=== PATIENT | male | born 1955 | race Caucasian/White ===

== ENCOUNTER 2018-04-26 17:40 | Inpatient (IN) | payer BC ==
--- OUTSIDE RECORDS SUMMARY | 2018-04-26 17:43 | XMS REPORT | Clinical Summary ---
:1955 Author Organization [facility] Address [address] [place] [address] Care Team Providers Name Role Phone Danial Wilkins MD Primary Care Provider Allergies No Known Allergies Current Medications Prescription Sig. Disp. Refills Start End Date Status Date aspirin (ECOTRIN) 81 Take 81 mg by Active MG enteric coated mouth daily. tablet multivitamin with Take 1 tablet by Active minerals tablet mouth daily. tiotropium-olodatero Take 2 Active l (STIOLTO RESPIMAT) inhalations by 2.5-2.5 mouth daily. mcg/actuation inhalation solution adalimumab (HUMIRA) Inject 40 mg Active 40 mg/0.8 mL under the skin injection once. HYDROcodone-acetamin Take 1 tablet by Active ophen (NORCO) 5-325 mouth every 6 mg per tablet (six) hours as needed for moderate pain. cyclobenzaprine Take 5 mg by Active (FLEXERIL) 5 mg mouth 3 (three) tablet times a day as needed for muscle spasms. simvastatin (ZOCOR) Take 20 mg by Active 20 MG tablet mouth nightly. folic acid (FOLVITE) Take 1 mg by Active 1 MG tablet mouth daily. 3 DAILY methotrexate 2.5 MG Take 2.5 mg by Active tablet mouth once a week. 7 PILLS WEEKLY albuterol (PROAIR Inhale 2 puffs Active HFA,PROVENTIL every 6 (six) HFA,VENTOLIN HFA) 90 hours as needed mcg/actuation for wheezing. inhaler tadalafil (CIALIS) Take 20 mg by Active 20 mg tablet mouth daily as needed. losartan (COZAAR) 50 TK 1 T PO QD 3 Active MG tablet 7 CHANTIX 1 mg tablet TK 1 T PO D 5 Active 7 CHANTIX STARTING TK 1 T PO D OR 3 Active MONTH BOX 0.5 mg DIRECTED 7 (11)- 1 mg (42) tablet amLODIPine (NORVASC) TK 1 T PO QD 1 Active 10 mg tablet 7 ondansetron ODT DISSOLVE 1 T ON 3 Active (ZOFRAN-ODT) 4 MG TONGUE Q 4 TO 6 7 disintegrating H PRF NV tablet dexamethasone TK 1 T PO BID 2 Active (DECADRON) 4 MG FOR 3 DAYS. 7 tablet BEGIN THE DAY BEFORE EACH CHEMO TREATMENT metoprolol succinate 100 mg. 2 Active XL (TOPROL-XL) 100 7 mg 24 hr tablet omeprazole 20 mg. 3 Active (PriLOSEC) 20 MG 7 capsule gabapentin Take 1 capsule 60 capsule 3 09/04/20 Active (NEURONTIN) 300 mg (300 mg total) 7 18 capsuleIndications: by mouth 2 (two) Neuropathic pain times a day. metoprolol succinate Take 200 mg by 07/30/20 Discontinued XL (TOPROL-XL) 200 mouth daily. 17 mg 24 hr tablet cholecalciferol, Take 1,000 Units 07/30/20 Discontinued vitamin D3, (VITAMIN by mouth daily. 17 D3) 1,000 unit tablet acetaminophen Take 2 tablets 180 tablet 0 08/29/20 (TYLENOL) 500 MG (1,000 mg total) 7 17 tablet by mouth 3 (three) times a day for 30 days. traMADol (ULTRAM) 50 Take 1 tablet 80 tablet 0 08/19/20 mg tablet (50 mg total) by 7 17 mouth 4 (four) times a day for 20 days. amIODarone Take 1 tablet 60 tablet 0 08/29/20 (PACERONE) 200 MG (200 mg total) 7 17 tablet by mouth 2 (two) times a day for 30 days. metoprolol tartrate Take 1 tablet 60 tablet 0 08/29/20 (LOPRESSOR) 100 mg (100 mg total) 7 17 tablet by mouth 2 (two) times a day for 30 days. apixaban (ELIQUIS) Take 2 tablets 360 tablet 0 10/28/20 2.5 mg tablet (5 mg total) by 7 17 mouth 2 (two) times a day for 90 days. Active Problems Patient Care Coordination Note Referring physician is Valery Bucio [facility] [place] [address] P: [phone] F: [phone] Problem Noted Date Malignant neoplasm of upper lobe bronchus 07/15/2017 Hypertension 02/03/2017 COPD (chronic obstructive pulmonary disease) 02/03/2017 Rheumatoid arthritis 02/03/2017 Smoking 02/03/2017 Encounters Date Type Specialty Care Team Description 09/04/2017 Office Visit Cardiothoracic Blu Lay Surgery follow-up examination (Primary Dx); Surgery MD Stephenie Neuropathic pain 08/27/2017 Telephone Cardiothoracic La Nena Rm NP 08/01/2017 Telephone Cardiothoracic Michele, La Nena Ruiz [place] 07/18/2017 Anesthesia Event Cardiology WeberEmma 07/18/2017 Procedure Pass Procedural Cardiology 07/18/2017 Surgery Procedural Cardiology Matthias Patrick MD Ep cardioversion [90637 (CPT)] 07/15/2017 - Hospital Encounter Cardiology Blu Lay Malignant neoplasm 07/30/2017 MD Stephenie of upper lobe bronchus, left 07/15/2017 Procedure Pass Cardiothoracic Surgery 07/15/2017 Surgery Cardiothoracic Blu Lay ROBOTIC ASSISTED Surgery MD Stephenie THORASCOPIC LEFT UPPER LOBE LOBECTOMY, THORASCOPIC RIGHT RESECTION MEDIASTINAL MASS, MEDIASTINAL LYMPH NODE DISECTION 07/14/2017 Anesthesia Event Cardiothoracic Javier Berry Surgery MD 07/10/2017 Telephone Cardiothoracic La Nena Rm NP 07/09/2017 Hospital Encounter Radiology Zuly Rm NP 07/09/2017 Lab Lab [facility] Malignant neoplasm of upper lobe of left lung; MD Stephenie Pre-op testing 07/09/2017 Telephone Cardiothoracic La Nena Rm NP 07/03/2017 Telephone Cardiothoracic La Nena Rm NP 06/09/2017 Telephone Cardiothoracic Demetriasensaturnino, Cough (Primary Dx) Surgery Tata Ashley NP 05/29/2017 Hospital Encounter Blu Dugan MD 05/29/2017 Hospital Encounter Blu Dugan MD 05/29/2017 Office Visit Cardiothoracic Blu Lay Malignant neoplasm of upper lobe of left lung (Primary Dx); Surgery MD Stephenie Pre-op testing 05/29/2017 Ancillary Orders Blu Dugan MD 05/29/2017 Ancillary Orders Blu Dugan MD 05/29/2017 Orders Only Cardiothoracic Provider, La Nena Obando MD after 04/25/2017 Family History Medical History Relation Name Comments Skin cancer Brother COPD Father Emphysema Father Heart failure Father Lung cancer Father Skin cancer Father No Known Problems Mother No Known Problems Sister Relation Name Status Comments Brother Father Mother Sister Social History Tobacco Use Types Packs/Day Years Used Date Former Smoker Cigarettes 1 51 Quit: 01/01/2017 Smokeless Tobacco: Never Used Tobacco Cessation: Counseling Given: Yes Alcohol Use Drinks/Week oz/Week Comments Yes 3 Cans of beer 1.8 Sex Assigned at Date Recorded Not on file Last Filed Vital Signs Vital Sign Reading Time Taken Blood Pressure 134/66 09/04/2017 10:42 AM CDT Pulse 61 09/04/2017 10:42 AM CDT Temperature 35.8 C (96.5 F) 09/04/2017 10:42 AM CDT Respiratory Rate 20 09/04/2017 10:42 AM CDT Oxygen Saturation 94% 09/04/2017 10:42 AM CDT Inhaled Oxygen Concentration - - Weight 61.3 kg (135 lb 3.2 oz) 09/04/2017 10:42 AM CDT Height 162.6 cm (5' 4") 09/04/2017 10:42 AM CDT Body Mass Index 23.21 09/04/2017 10:42 AM CDT Plan of Treatment Health Maintenance Due Date Last Done Comments COLON CANCER SCREENING 2003 SHINGRIX VACCINE (#1) 2003 ZOSTER VACCINE 2013 INFLUENZA VACCINE 06/03/2018 Implants Implanted Type Area Ditch Inspector Device Expiration Model / Identifier Date Serial / Lot Hemostat Absrbl Oxidized Knttd 3x4in Cllos Surgicel Nu-Knit - [id number] Surgical N/A: N/A [facility] 03/02/2022 1943 / Implanted: 07/15/2017 (Quantity not on file) Implants; / Expanders; [id number] Extenders; Surgical Wires Hemostat Absrbl Oxidized Knttd 3x4in Cllos Surgicel Nu-Knit - [id number] Surgical N/A: N/A [facility] 03/02/2022 194 / Implanted: 07/15/2017 (Quantity not on file) Implants; / Expanders; [id number] Extenders; Surgical Wires Hemostat Absrbl Oxidized Knttd 3x4in Cllos Surgicel Nu-Knit - [id number] Surgical N/A: N/A [facility] 03/02/2022 194 / Implanted: 07/15/2017 (Quantity not on file) Implants; / Expanders; [id number] Extenders; Surgical Wires Hemostat Absrbl Oxidized Knttd 3x4in Cllos Surgicel Nu-Knit - [id number] Surgical N/A: N/A [facility] 03/02/2022 194 / Implanted: 07/15/2017 (Quantity not on file) Implants; / Expanders; [id number] Extenders; Surgical Wires Hemostat Absrbl Oxidized Knttd 3x4in Cllos Surgicel Nu-Knit - [id number] Surgical N/A: N/A [facility] 03/02/2022 194 / Implanted: 07/15/2017 (Quantity not on file) Implants; / Expanders; [id number] Extenders; Surgical Wires Kit Selnt Plrl Air Leak 4ml Strl Progel - [id number] Surgical N/A: N/A [employer] 07/04/2018 [id number] / Implanted: Qty: 1 on 07/15/2017 by Blu Lay MD Implants; / Expanders; Extenders; Surgical Wires Matrix Hmstc Floseal 10ml W/ Humn F2 - [id number] Surgical N/A: N/A [id number] / Implanted: 07/15/2017 (Quantity not on file) Implants; BIOSCIENCE / Expanders; Extenders; Surgical Wires Kit Selnt Plrl Air Leak 4ml Strl Progel - [id number] Surgical N/A: N/A [employer] [id number] / Implanted: 07/15/2017 (Quantity not on file) Implants; / Expanders; Extenders; Surgical Wires Procedures Procedure Name Priority Date/Time Associated Comments Diagnosis XR CHEST 1 VW PORTABLE Routine 07/30/2017 1:50 Results for this PM CDT procedure are in the results section. HC COMPLETE BLD COUNT Routine 07/30/2017 5:47 Results for this W/AUTO DIFF AM CDT procedure are in the results section. XR CHEST 1 VW PORTABLE Routine 07/30/2017 5:34 Results for this AM CDT procedure are in the results section. XR CHEST 1 VW PORTABLE STAT 07/29/2017 7:30 Results for this AM CDT procedure are in the results section. HC COMPLETE BLD COUNT Routine 07/29/2017 5:15 Results for this W/AUTO DIFF AM CDT procedure are in the results section. ESTIMATED GFR Routine 07/29/2017 4:00 Results for this AM CDT procedure are in the results section. PHOSPHORUS LEVEL Routine 07/29/2017 4:00 Results for this AM CDT procedure are in the results section. MAGNESIUM LEVEL Routine 07/29/2017 4:00 Results for this AM CDT procedure are in the results section. BASIC METABOLIC PANEL Routine 07/29/2017 4:00 Results for this AM CDT procedure are in the results section. XR CHEST 1 VW PORTABLE Routine 07/28/2017 12:18 Results for this PM CDT procedure are in the results section. XR CHEST 1 VW PORTABLE Routine 07/28/2017 6:25 Results for this AM CDT procedure are in the results section. CBC WITH PLATELET AND Routine 07/28/2017 4:10 Results for this DIFFERENTIAL AM CDT procedure are in the results section. ESTIMATED GFR Routine 07/28/2017 4:00 Results for this AM CDT procedure are in the results section. PHOSPHORUS LEVEL Routine 07/28/2017 4:00 Results for this AM CDT procedure are in the results section. MAGNESIUM LEVEL Routine 07/28/2017 4:00 Results for this AM CDT procedure are in the results section. BASIC METABOLIC PANEL Routine 07/28/2017 4:00 Results for this AM CDT procedure are in the results section. POC GLUCOSE Routine 07/27/2017 9:10 Results for this PM CDT procedure are in the results section. POC GLUCOSE Routine 07/27/2017 7:23 Results for this AM CDT procedure are in the results section. XR CHEST 1 VW PORTABLE Routine 07/27/2017 6:41 Results for this AM CDT procedure are in the results section. CBC WITH PLATELET AND Routine 07/27/2017 5:35 Results for this DIFFERENTIAL AM CDT procedure are in the results section. ESTIMATED GFR Routine 07/27/2017 4:00 Results for this AM CDT procedure are in the results section. PHOSPHORUS LEVEL Routine 07/27/2017 4:00 Results for this AM CDT procedure are in the results section. MAGNESIUM LEVEL Routine 07/27/2017 4:00 Results for this AM CDT procedure are in the results section. BASIC METABOLIC PANEL Routine 07/27/2017 4:00 Results for this AM CDT procedure are in the results section. POC GLUCOSE Routine 07/26/2017 8:59 Results for this PM CDT procedure are in the results section. POC GLUCOSE Routine 07/26/2017 5:52 Results for this PM CDT procedure are in the results section. POC GLUCOSE Routine 07/26/2017 11:43 Results for this AM CDT procedure are in the results section. POC GLUCOSE Routine 07/26/2017 7:34 Results for this AM CDT procedure are in the results section. XR CHEST 1 VW PORTABLE STAT 07/26/2017 7:26 Results for this AM CDT procedure are in the results section. HC COMPLETE BLD COUNT Routine 07/26/2017 5:30 Results for this W/AUTO DIFF AM CDT procedure are in the results section. ESTIMATED GFR Routine 07/26/2017 4:00 Results for this AM CDT procedure are in the results section. PHOSPHORUS LEVEL Routine 07/26/2017 4:00 Results for this AM CDT procedure are in the results section. MAGNESIUM LEVEL Routine 07/26/2017 4:00 Results for this AM CDT procedure are in the results section. BASIC METABOLIC PANEL Routine 07/26/2017 4:00 Results for this AM CDT procedure are in the results section. XR CHEST 1 VW PORTABLE STAT 07/25/2017 11:38 Results for this PM CDT procedure are in the results section. POC GLUCOSE Routine 07/25/2017 9:25 Results for this PM CDT procedure are in the results section. POC GLUCOSE Routine 07/25/2017 6:28 Results for this PM CDT procedure are in the results section. HC CATH DRAINAGE STAT 07/25/2017 5:07 Results for this PM CDT procedure are in the results section. POC GLUCOSE Routine 07/25/2017 11:58 Results for this AM CDT procedure are in the results section. MAGNESIUM LEVEL Routine 07/25/2017 7:37 Results for this AM CDT procedure are in the results section. ESTIMATED GFR Routine 07/25/2017 7:37 Results for this AM CDT procedure are in the results section. PHOSPHORUS LEVEL Routine 07/25/2017 7:37 Results for this AM CDT procedure are in the results section. BASIC METABOLIC PANEL Routine 07/25/2017 7:37 Results for this AM CDT procedure are in the results section. POC GLUCOSE Routine 07/25/2017 7:15 Results for this AM CDT procedure are in the results section. HC COMPLETE BLD COUNT Routine 07/25/2017 7:00 Results for this W/AUTO DIFF AM CDT procedure are in the results section. XR CHEST 1 VW PORTABLE Routine 07/25/2017 6:30 Results for this AM CDT procedure are in the results section. XR CHEST 1 VW PORTABLE Routine 07/24/2017 9:25 Results for this PM CDT procedure are in the results section. POC GLUCOSE Routine 07/24/2017 8:59 Results for this PM CDT procedure are in the results section. POC GLUCOSE Routine 07/24/2017 5:29 Results for this PM CDT procedure are in the results section. POC GLUCOSE Routine 07/24/2017 11:35 Results for this AM CDT procedure are in the results section. XR CHEST 1 VW PORTABLE STAT 07/24/2017 7:35 Results for this AM CDT procedure are in the results section. POC GLUCOSE Routine 07/24/2017 7:13 Results for this AM CDT procedure are in the results section. ESTIMATED GFR Routine 07/24/2017 5:45 Results for this AM CDT procedure are in the results section. PHOSPHORUS LEVEL Routine 07/24/2017 5:45 Results for this AM CDT procedure are in the results section. MAGNESIUM LEVEL Routine 07/24/2017 5:45 Results for this AM CDT procedure are in the results section. HC COMPLETE BLD COUNT Routine 07/24/2017 5:45 Results for this W/AUTO DIFF AM CDT procedure are in the results section. BASIC METABOLIC PANEL Routine 07/24/2017 5:45 Results for this AM CDT procedure are in the results section. POC GLUCOSE Routine 07/23/2017 9:13 Results for this PM CDT procedure are in the results section. POC GLUCOSE Routine 07/23/2017 4:53 Results for this PM CDT procedure are in the results section. XR CHEST 1 VW STAT 07/23/2017 3:15 Results for this PM CDT procedure are in the results section. XR CHEST 1 VW STAT 07/23/2017 2:13 Results for this PM CDT procedure are in the results section. CT INSERT PLEURA CATH Routine 07/23/2017 1:45 Results for this PM CDT procedure are in the results section. POC GLUCOSE Routine 07/23/2017 11:32 Results for this AM CDT procedure are in the results section. POC GLUCOSE Routine 07/23/2017 6:53 Results for this AM CDT procedure are in the results section. XR CHEST 1 VW PORTABLE Routine 07/23/2017 6:30 Results for this AM CDT procedure are in the results section. ESTIMATED GFR Routine 07/23/2017 5:20 Results for this AM CDT procedure are in the results section. PROTHROMBIN TIME WITH Routine 07/23/2017 5:20 Results for this INR AM CDT procedure are in the results section. PARTIAL THROMBOPLASTIN Routine 07/23/2017 5:20 Results for this TIME (PTT) AM CDT procedure are in the results section. PHOSPHORUS LEVEL Routine 07/23/2017 5:20 Results for this AM CDT procedure are in the results section. MAGNESIUM LEVEL Routine 07/23/2017 5:20 Results for this AM CDT procedure are in the results section. HC COMPLETE BLD COUNT Routine 07/23/2017 5:20 Results for this W/AUTO DIFF AM CDT procedure are in the results section. BASIC METABOLIC PANEL Routine 07/23/2017 5:20 Results for this AM CDT procedure are in the results section. POC GLUCOSE Routine 07/22/2017 8:54 Results for this PM CDT procedure are in the results section. POC GLUCOSE Routine 07/22/2017 5:36 Results for this PM CDT procedure are in the results section. XR CHEST 1 VW PORTABLE STAT 07/22/2017 5:35 Results for this PM CDT procedure are in the results section. POC GLUCOSE Routine 07/22/2017 11:52 Results for this AM CDT procedure are in the results section. XR CHEST 1 VW PORTABLE Routine 07/22/2017 9:02 Results for this AM CDT procedure are in the results section. POC GLUCOSE Routine 07/22/2017 7:13 Results for this AM CDT procedure are in the results section. ESTIMATED GFR Routine 07/22/2017 5:30 Results for this AM CDT procedure are in the results section. BASIC METABOLIC PANEL Routine 07/22/2017 5:30 Results for this AM CDT procedure are in the results section. HC COMPLETE BLD COUNT Routine 07/22/2017 5:30 Results for this W/AUTO DIFF AM CDT procedure are in the results section. POC GLUCOSE Routine 07/21/2017 9:21 Results for this PM CDT procedure are in the results section. POC GLUCOSE Routine 07/21/2017 5:01 Results for this PM CDT procedure are in the results section. POC GLUCOSE Routine 07/21/2017 11:13 Results for this AM CDT procedure are in the results section. POC GLUCOSE Routine 07/21/2017 7:09 Results for this AM CDT procedure are in the results section. HC COMPLETE BLD COUNT Routine 07/21/2017 4:20 Results for this W/AUTO DIFF AM CDT procedure are in the results section. PHOSPHORUS LEVEL Routine 07/21/2017 4:00 Results for this AM CDT procedure are in the results section. ESTIMATED GFR Routine 07/21/2017 4:00 Results for this AM CDT procedure are in the results section. BASIC METABOLIC PANEL Routine 07/21/2017 4:00 Results for this AM CDT procedure are in the results section. POC GLUCOSE Routine 07/20/2017 9:39 Results for this PM CDT procedure are in the results section. POC GLUCOSE Routine 07/20/2017 5:37 Results for this PM CDT procedure are in the results section. POC GLUCOSE Routine 07/20/2017 12:19 Results for this PM CDT procedure are in the results section. POC GLUCOSE Routine 07/20/2017 7:58 Results for this AM CDT procedure are in the results section. PHOSPHORUS LEVEL Routine 07/20/2017 4:00 Results for this AM CDT procedure are in the results section. ESTIMATED GFR Routine 07/20/2017 4:00 Results for this AM CDT procedure are in the results section. BASIC METABOLIC PANEL Routine 07/20/2017 4:00 Results for this AM CDT procedure are in the results section. HC COMPLETE BLD COUNT Routine 07/20/2017 4:00 Results for this W/AUTO DIFF AM CDT procedure are in the results section. POC GLUCOSE Routine 07/19/2017 9:21 Results for this PM CDT procedure are in the results section. POC GLUCOSE Routine 07/19/2017 5:57 Results for this PM CDT procedure are in the results section. POC GLUCOSE Routine 07/19/2017 12:17 Results for this PM CDT procedure are in the results section. POC GLUCOSE Routine 07/19/2017 7:19 Results for this AM CDT procedure are in the results section. MAGNESIUM LEVEL Routine 07/19/2017 5:00 Results for this AM CDT procedure are in the results section. PHOSPHORUS LEVEL Routine 07/19/2017 5:00 Results for this AM CDT procedure are in the results section. HEPATIC FUNCTION PANEL Routine 07/19/2017 5:00 Results for this AM CDT procedure are in the results section. ESTIMATED GFR Routine 07/19/2017 5:00 Results for this AM CDT procedure are in the results section. BASIC METABOLIC PANEL Routine 07/19/2017 5:00 Results for this AM CDT procedure are in the results section. HC COMPLETE BLD COUNT Routine 07/19/2017 5:00 Results for this W/AUTO DIFF AM CDT procedure are in the results section. POC GLUCOSE Routine 07/18/2017 9:49 Results for this PM CDT procedure are in the results section. XR CHEST 1 VW PORTABLE Routine 07/18/2017 8:15 Results for this PM CDT procedure are in the results section. PHOSPHORUS LEVEL STAT 07/18/2017 6:43 Results for this PM CDT procedure are in the results section. MAGNESIUM LEVEL STAT 07/18/2017 6:43 Results for this PM CDT procedure are in the results section. POC GLUCOSE Routine 07/18/2017 5:36 Results for this PM CDT procedure are in the results section. ECG 12-LEAD STAT 07/18/2017 2:15 Results for this PM CDT procedure are in the results section. EP CARDIOVERSION Routine 07/18/2017 2:07 Results for this PM CDT procedure are in the results section. POC GLUCOSE Routine 07/18/2017 11:44 Results for this AM CDT procedure are in the results section. THYROID STIMULATING Routine 07/18/2017 10:53 Results for this HORMONE AM CDT procedure are in the results section. POC GLUCOSE Routine 07/18/2017 7:17 Results for this AM CDT procedure are in the results section. XR CHEST 1 VW PORTABLE STAT 07/18/2017 3:22 Results for this AM CDT procedure are in the results section. PARTIAL THROMBOPLASTIN STAT 07/18/2017 3:20 Results for this TIME (PTT) AM CDT procedure are in the results section. PROTHROMBIN TIME WITH STAT 07/18/2017 3:20 Results for this INR AM CDT procedure are in the results section. ARTERIAL BLOOD GAS STAT 07/18/2017 3:03 Results for this AM CDT procedure are in the results section. HC COMPLETE BLD COUNT STAT 07/18/2017 3:00 Results for this W/AUTO DIFF AM CDT procedure are in the results section. TROPONIN STAT 07/18/2017 2:52 Results for this AM CDT procedure are in the results section. ESTIMATED GFR STAT 07/18/2017 2:52 Results for this AM CDT procedure are in the results section. MAGNESIUM LEVEL STAT 07/18/2017 2:52 Results for this AM CDT procedure are in the results section. COMPREHENSIVE METABOLIC STAT 07/18/2017 2:52 Results for this PANEL AM CDT procedure are in the results section. POC GLUCOSE Routine 07/18/2017 1:06 Results for this AM CDT procedure are in the results section. POC GLUCOSE Routine 07/17/2017 8:55 Results for this PM CDT procedure are in the results section. POC GLUCOSE Routine 07/17/2017 5:19 Results for this PM CDT procedure are in the results section. POC GLUCOSE Routine 07/17/2017 1:26 Results for this PM CDT procedure are in the results section. XR CHEST 1 VW PORTABLE Routine 07/17/2017 1:17 Results for this PM CDT procedure are in the results section. POC GLUCOSE Routine 07/17/2017 9:08 Results for this AM CDT procedure are in the results section. XR CHEST 1 VW PORTABLE STAT 07/17/2017 6:55 Results for this AM CDT procedure are in the results section. HC COMPLETE BLD COUNT Routine 07/17/2017 4:30 Results for this W/AUTO DIFF AM CDT procedure are in the results section. ECG 12-LEAD Routine 07/17/2017 3:19 Results for this AM CDT procedure are in the results section. ESTIMATED GFR Routine 07/17/2017 12:00 Results for this AM CDT procedure are in the results section. PHOSPHORUS LEVEL Routine 07/17/2017 12:00 Results for this AM CDT procedure are in the results section. IONIZED CALCIUM Routine 07/17/2017 12:00 Results for this AM CDT procedure are in the results section. MAGNESIUM LEVEL Routine 07/17/2017 12:00 Results for this AM CDT procedure are in the results section. BASIC METABOLIC PANEL Routine 07/17/2017 12:00 Results for this AM CDT procedure are in the results section. XR CHEST 1 VW PORTABLE STAT 07/16/2017 10:02 Results for this PM CDT procedure are in the results section. HC COMPLETE BLD COUNT STAT 07/16/2017 10:00 Results for this W/AUTO DIFF PM CDT procedure are in the results section. ECG 12-LEAD Routine 07/16/2017 9:35 Results for this PM CDT procedure are in the results section. TROPONIN STAT 07/16/2017 9:30 Results for this PM CDT procedure are in the results section. ESTIMATED GFR STAT 07/16/2017 9:30 Results for this PM CDT procedure are in the results section. PHOSPHORUS LEVEL STAT 07/16/2017 9:30 Results for this PM CDT procedure are in the results section. MAGNESIUM LEVEL STAT 07/16/2017 9:30 Results for this PM CDT procedure are in the results section. BASIC METABOLIC PANEL STAT 07/16/2017 9:30 Results for this PM CDT procedure are in the results section. POC GLUCOSE Routine 07/16/2017 9:01 Results for this PM CDT procedure are in the results section. POC GLUCOSE Routine 07/16/2017 5:33 Results for this PM CDT procedure are in the results section. POC GLUCOSE Routine 07/16/2017 11:44 Results for this AM CDT procedure are in the results section. POC GLUCOSE Routine 07/16/2017 7:21 Results for this AM CDT procedure are in the results section. XR CHEST 1 VW PORTABLE Routine 07/16/2017 6:30 Results for this AM CDT procedure are in the results section. POC GLUCOSE Routine 07/16/2017 4:07 Results for this AM CDT procedure are in the results section. ESTIMATED GFR Routine 07/16/2017 2:23 Results for this AM CDT procedure are in the results section. PHOSPHORUS LEVEL Routine 07/16/2017 2:23 Results for this AM CDT procedure are in the results section. MAGNESIUM LEVEL Routine 07/16/2017 2:23 Results for this AM CDT procedure are in the results section. IONIZED CALCIUM Routine 07/16/2017 2:23 Results for this AM CDT procedure are in the results section. BASIC METABOLIC PANEL Routine 07/16/2017 2:23 Results for this AM CDT procedure are in the results section. PROTHROMBIN TIME WITH Routine 07/16/2017 2:00 Results for this INR AM CDT procedure are in the results section. PARTIAL THROMBOPLASTIN Routine 07/16/2017 2:00 Results for this TIME (PTT) AM CDT procedure are in the results section. CBC HEMOGRAM Routine 07/16/2017 2:00 Results for this AM CDT procedure are in the results section. POC GLUCOSE Routine 07/16/2017 12:22 Results for this AM CDT procedure are in the results section. ESTIMATED GFR Routine 07/15/2017 8:40 Results for this PM CDT procedure are in the results section. PROTHROMBIN TIME WITH Routine 07/15/2017 8:40 Results for this INR PM CDT procedure are in the results section. PHOSPHORUS LEVEL Routine 07/15/2017 8:40 Results for this PM CDT procedure are in the results section. PARTIAL THROMBOPLASTIN Routine 07/15/2017 8:40 Results for this TIME (PTT) PM CDT procedure are in the results section. BASIC METABOLIC PANEL Routine 07/15/2017 8:40 Results for this PM CDT procedure are in the results section. MAGNESIUM LEVEL Routine 07/15/2017 8:40 Results for this PM CDT procedure are in the results section. IONIZED CALCIUM Routine 07/15/2017 8:40 Results for this PM CDT procedure are in the results section. HC COMPLETE BLD COUNT Routine 07/15/2017 8:40 Results for this W/AUTO DIFF PM CDT procedure are in the results section. XR CHEST 1 VW PORTABLE Routine 07/15/2017 8:32 Results for this PM CDT procedure are in the results section. POC GLUCOSE Routine 07/15/2017 7:30 Results for this PM CDT procedure are in the results section. ECG PRE/POST OP Routine 07/15/2017 7:29 Results for this PM CDT procedure are in the results section. POC GLUCOSE Routine 07/15/2017 6:57 Results for this PM CDT procedure are in the results section. ARTERIAL BLOOD GAS Routine 07/15/2017 6:57 Results for this PM CDT procedure are in the results section. ARTERIAL BLOOD GAS STAT 07/15/2017 5:43 Results for this PM CDT procedure are in the results section. XR CHEST 1 VW PORTABLE STAT 07/15/2017 5:37 Results for this PM CDT procedure are in the results section. ARTERIAL BLOOD GAS STAT 07/15/2017 5:22 Results for this PM CDT procedure are in the results section. ARTERIAL BLOOD GAS, STAT 07/15/2017 4:02 Results for this CORRECTED PM CDT procedure are in the results section. SODIUM LEVEL, SYRINGE STAT 07/15/2017 4:02 Results for this PM CDT procedure are in the results section. POTASSIUM, SYRINGE STAT 07/15/2017 4:02 Results for this PM CDT procedure are in the results section. HEMOGLOBIN, SYRINGE STAT 07/15/2017 4:02 Results for this PM CDT procedure are in the results section. IONIZED CALCIUM, STAT 07/15/2017 4:02 Results for this ARTERIAL PM CDT procedure are in the results section. GLUCOSE LEVEL, SYRINGE STAT 07/15/2017 4:02 Results for this PM CDT procedure are in the results section. SURGICAL PATHOLOGY Routine 07/15/2017 3:33 Results for this REQUEST PM CDT procedure are in the results section. IONIZED CALCIUM, STAT 07/15/2017 2:48 Results for this ARTERIAL PM CDT procedure are in the results section. GLUCOSE LEVEL, SYRINGE STAT 07/15/2017 2:48 Results for this PM CDT procedure are in the results section. HEMOGLOBIN, SYRINGE STAT 07/15/2017 2:48 Results for this PM CDT procedure are in the results section. SODIUM LEVEL, SYRINGE STAT 07/15/2017 2:48 Results for this PM CDT procedure are in the results section. POTASSIUM, SYRINGE STAT 07/15/2017 2:48 Results for this PM CDT procedure are in the results section. ARTERIAL BLOOD GAS STAT 07/15/2017 2:48 Results for this PM CDT procedure are in the results section. GLUCOSE LEVEL, SYRINGE STAT 07/15/2017 1:53 Results for this PM CDT procedure are in the results section. IONIZED CALCIUM, STAT 07/15/2017 1:53 Results for this ARTERIAL PM CDT procedure are in the results section. HEMOGLOBIN, SYRINGE STAT 07/15/2017 1:53 Results for this PM CDT procedure are in the results section. POTASSIUM, SYRINGE STAT 07/15/2017 1:53 Results for this PM CDT procedure are in the results section. SODIUM LEVEL, SYRINGE STAT 07/15/2017 1:53 Results for this PM CDT procedure are in the results section. ARTERIAL BLOOD GAS STAT 07/15/2017 1:53 Results for this PM CDT procedure are in the results section. GLUCOSE LEVEL, SYRINGE STAT 07/15/2017 12:48 Results for this PM CDT procedure are in the results section. HEMOGLOBIN, SYRINGE STAT 07/15/2017 12:48 Results for this PM CDT procedure are in the results section. IONIZED CALCIUM, STAT 07/15/2017 12:48 Results for this ARTERIAL PM CDT procedure are in the results section. SODIUM LEVEL, SYRINGE STAT 07/15/2017 12:48 Results for this PM CDT procedure are in the results section. POTASSIUM, SYRINGE STAT 07/15/2017 12:48 Results for this PM CDT procedure are in the results section. ARTERIAL BLOOD GAS STAT 07/15/2017 12:48 Results for this PM CDT procedure are in the results section. GLUCOSE LEVEL, SYRINGE STAT 07/15/2017 11:49 Results for this AM CDT procedure are in the results section. HEMOGLOBIN, SYRINGE STAT 07/15/2017 11:49 Results for this AM CDT procedure are in the results section. IONIZED CALCIUM, STAT 07/15/2017 11:49 Results for this ARTERIAL AM CDT procedure are in the results section. POTASSIUM, SYRINGE STAT 07/15/2017 11:49 Results for this AM CDT procedure are in the results section. SODIUM LEVEL, SYRINGE STAT 07/15/2017 11:49 Results for this AM CDT procedure are in the results section. ARTERIAL BLOOD GAS STAT 07/15/2017 11:49 Results for this AM CDT procedure are in the results section. GLUCOSE LEVEL, SYRINGE STAT 07/15/2017 10:44 Results for this AM CDT procedure are in the results section. HEMOGLOBIN, SYRINGE STAT 07/15/2017 10:44 Results for this AM CDT procedure are in the results section. IONIZED CALCIUM, STAT 07/15/2017 10:44 Results for this ARTERIAL AM CDT procedure are in the results section. POTASSIUM, SYRINGE STAT 07/15/2017 10:44 Results for this AM CDT procedure are in the results section. SODIUM LEVEL, SYRINGE STAT 07/15/2017 10:44 Results for this AM CDT procedure are in the results section. ARTERIAL BLOOD GAS STAT 07/15/2017 10:44 Results for this AM CDT procedure are in the results section. GLUCOSE LEVEL, SYRINGE STAT 07/15/2017 9:22 Results for this AM CDT procedure are in the results section. IONIZED CALCIUM, STAT 07/15/2017 9:22 Results for this ARTERIAL AM CDT procedure are in the results section. HEMOGLOBIN, SYRINGE STAT 07/15/2017 9:22 Results for this AM CDT procedure are in the results section. POTASSIUM, SYRINGE STAT 07/15/2017 9:22 Results for this AM CDT procedure are in the results section. SODIUM LEVEL, SYRINGE STAT 07/15/2017 9:22 Results for this AM CDT procedure are in the results section. ARTERIAL BLOOD GAS STAT 07/15/2017 9:22 Results for this AM CDT procedure are in the results section. CENTRAL LINE Routine 07/15/2017 8:43 AM CDT Procedure Note - Cici Aj MD - 07/15/2017 8:42 AM CDT Central line Performed by: CICI AJ Authorized by: CICI AJ Patient Location: OR Staff: Anesthesiologist: CICI AJ Resident/TROLLEY COLLECTOR: JAVIER BERRY Performed by: Resident/TROLLEY COLLECTOR Preprocedure:patient identified, IV checked, site and side verified, risks and benefits discussed, procedure verified, surgical consent complete, patient position confirmed, monitors and equipment checked and pre-op evaluation complete MSBT: antiseptic used during central venous catheter insertion, all elements of maximal sterile barrier technique followed, hand hygiene performed prior to central venous catheter insertion, cap/gown used by other personnel during central venous catheter insertion, solutions labeled and all ports not used during insertion clamped Indications: Indications: Vascular access and central pressure monitoring Anesthesia: Anesthesia: General Procedure details: Patient position: Supine Catheter Type: Double lumen Catheter Size: 8 Fr Catheter Site: subclavian vein Catheter site laterality: Left Pre-procedure: Landmarks identified Ultrasound guidance used: No Ultrasound image saved: No Pressure transduced: Pressure transduced prior to dilator Number of attempts: 1 Successful placement: Yes Guidewire removal: Guidewire removal is confirmed Guidewire removal witnessed by: CICI AJ Post-procedure: Post-procedure: line sutured, sterile dressing applied per protocol and ports flushed with saline Post-procedure: Blood cleaned with CHG and sterile caps on all hubs Assessment: Blood return through all ports Patient tolerance: Patient tolerated the procedure well with no immediate complications ARTERIAL LINE Routine 07/15/2017 8:42 AM CDT Procedure Note - Cici Aj MD - 07/15/2017 8:41 AM CDT Arterial line Performed by: CICI AJ Authorized by: CICI AJ Patient Location: OR Staff: Anesthesiologist: CICI AJ Resident/TROLLEY COLLECTOR: JAVIER BERRY Performed by: Anesthesiologist Pre-procedure: patient identified, IV checked, site and side verified, risks and benefits discussed, procedure verified, surgical consent complete, patient position confirmed, monitors and equipment checked and pre-op evaluation complete MSBT: antiseptic used, all elements of maximal sterile barrier technique followed, hand hygiene performed, cap/gown used by other personnel and solutions labeled Indications: Indications: multiple ABGs and hemodynamic monitoring Anesthesia: Anesthesia: Local infiltration Procedure Details: Arterial Line placement: Placed pre-induction Line placement site: Radial Line placement side: Left Arterial line gauge: 20 G Number of attempts: 1 Ultrasound guidance used: No Post-procedure: Post-procedure: Sterile dressing applied Post procedure circulation, sensation, movement: Normal and unchanged Patient tolerance: Patient tolerated the procedure well with no immediate complications IA AN ELECTIVE ENDOTRACHEAL AIRWAY Routine 07/15/2017 8:41 AM CDT Procedure Note - Cici Aj MD - 07/15/2017 8:39 AM CDT Airway Performed by: CICI AJ Authorized by: CICI AJ Location: OR Urgency: Elective Anesthesiologist: CICI AJ Resident/TROLLEY COLLECTOR: JAVIER BERRY Performed by: resident/TROLLEY COLLECTOR Preoxygenated with 100% O2: Yes C-spine Precautions Maintained Throughout: Yes Mask Ventilation: Easy mask Final Airway Type: Endotracheal airway Final Endotracheal Airway: ETT - double lumen left Technique Used: Direct laryngoscopy Blade Type: Spencer Laryngoscope Blade/Videolaryngoscope Blade Size: 3 ETT Double Lumen (fr): 39 Placement Verified by: CO2 detection and direct visualization Laryngoscopic view: Grade I - full view of glottis Rapid Sequence Induction (RSI): No Modified RSI: No Number of Attempts at Approach: 1 XR CHEST 2 VW Routine 07/09/2017 1:02 PM Cough Results for this CDT procedure are in the results section. PREPARE RBC Routine 07/09/2017 12:00 PM Results for this CDT procedure are in the results section. ESTIMATED GFR Routine 07/09/2017 12:00 PM Results for this CDT procedure are in the results section. TYPE AND SCREEN Routine 07/09/2017 12:00 PM Malignant neoplasm Results for this CDT of upper lobe of procedure are in left lung the results Pre-op testing section. PARTIAL THROMBOPLASTIN Routine 07/09/2017 12:00 PM Malignant neoplasm Results for this TIME (PTT) CDT of upper lobe of procedure are in left lung the results Pre-op testing section. PROTHROMBIN TIME WITH Routine 07/09/2017 12:00 PM Malignant neoplasm Results for this INR CDT of upper lobe of procedure are in left lung the results Pre-op testing section. HC COMPLETE BLD COUNT Routine 07/09/2017 12:00 PM Malignant neoplasm Results for this W/AUTO DIFF CDT of upper lobe of procedure are in left lung the results Pre-op testing section. COMPREHENSIVE METABOLIC Routine 07/09/2017 12:00 PM Malignant neoplasm Results for this PANEL CDT of upper lobe of procedure are in left lung the results Pre-op testing section. PET CT WHOLE BODY Routine 05/22/2017 3:46 PM Results for this EXTERNAL STUDY CDT procedure are in the results section. PET CT SKULL BASE MID Routine 05/22/2017 12:00 AM THIGH EXTERNAL STUDY CDT after 04/25/2017 Results XR Chest 1 Vw Portable (07/30/2017 1:50 PM)Only the most recent of22 resultswithin the time period is included. Narrative Performed At EXAMINATION:XR CHEST 1 VW PORTABLE [facility] CLINICAL HISTORY:Chest Tube Removal COMPARISON:July 30, 2017 IMPRESSION: 1.There is been removal of the left pleural pigtail catheter. There is a minimal apical pneumothorax. Right lung is clear. [id number] Procedure Note Hm Interface, Radiology Results Incoming - 07/30/2017 2:14 PM CDT EXAMINATION: XR CHEST 1 VW PORTABLE CLINICAL HISTORY: Chest Tube Removal COMPARISON: July 30, 2017 IMPRESSION: 1. There is been removal of the left pleural pigtail catheter. There is a minimal apical pneumothorax. Right lung is clear. [id number] Performing Organization Address City/State/Zipcode Phone Number [facility] [address] [place] [address] CBC with platelet and differential (07/30/2017 5:47 AM)Only the most recent of17 resultswithin the time period is included. WBC 6.32 4.50 - 11.00 k/uL [facility] DEPARTMENT OF PATHOLOGY AND GENOMIC MEDICINE RBC 3.98 (L) 4.40 - 6.00 m/uL [facility] DEPARTMENT OF PATHOLOGY AND GENOMIC MEDICINE HGB 11.4 (L) 14.0 - 18.0 g/dL [facility] DEPARTMENT OF PATHOLOGY AND GENOMIC MEDICINE HCT 34.7 (L) 41.0 - 51.0 % [facility] DEPARTMENT OF PATHOLOGY AND GENOMIC MEDICINE MCV 87.2 82.0 - 100.0 fL [facility] DEPARTMENT OF PATHOLOGY AND GENOMIC MEDICINE MCH 28.6 27.0 - 34.0 pg [facility] DEPARTMENT OF PATHOLOGY AND GENOMIC MEDICINE MCHC 32.9 31.0 - 37.0 g/dL [facility] DEPARTMENT OF PATHOLOGY AND GENOMIC MEDICINE RDW - SD 41.8 37.0 - 55.0 fL [facility] DEPARTMENT OF PATHOLOGY AND GENOMIC MEDICINE MPV 9.7 8.8 - 13.2 fL [facility] DEPARTMENT OF PATHOLOGY AND GENOMIC MEDICINE Platelet count 365 150 - 400 k/uL [facility] DEPARTMENT OF PATHOLOGY AND GENOMIC MEDICINE Nucleated RBC 0.00 /100 WBC [facility] DEPARTMENT OF PATHOLOGY AND GENOMIC MEDICINE Neutrophils 70.0 (H) 39.0 - 69.0 % [facility] DEPARTMENT OF PATHOLOGY AND GENOMIC MEDICINE Lymphocytes 14.7 (L) 25.0 - 45.0 % [facility] DEPARTMENT OF PATHOLOGY AND GENOMIC MEDICINE Monocytes 10.9 (H) 0.0 - 10.0 % [facility] DEPARTMENT OF PATHOLOGY AND GENOMIC MEDICINE Eosinophils 3.0 0.0 - 5.0 % [facility] DEPARTMENT OF PATHOLOGY AND GENOMIC MEDICINE Basophils 0.9 0.0 - 1.0 % [facility] DEPARTMENT OF PATHOLOGY AND GENOMIC MEDICINE Immature granulocytes 0.5Comment: 0.0 - 1.0 % [facility] DEPARTMENT OF "Immature PATHOLOGY AND GENOMIC granulocytes" MEDICINE (promyelocytes, myelocytes, metamyelocytes) Specimen Blood Performing Organization Address City/State/Zipcode Phone Number [facility] DEPARTMENT OF PATHOLOGY AND [address] [place] [address] GENOMIC MEDICINE Estimated GFR (07/29/2017 4:00 AM)Only the most recent of17 resultswithin the time period is included. GFR Non Af Amer 67 mL/min/1.73 m2 [facility] DEPARTMENT OF PATHOLOGY AND GENOMIC MEDICINE GFR Af Amer 82 mL/min/1.73 m2 [facility] DEPARTMENT OF Comment: PATHOLOGY AND GENOMIC Chronic kidney disease: <60 mL/min/1.73m2 MEDICINE Kidney failure: <15 mL/min/1.73m2 The estimated GFR is calculated from the IDMS-traceable Modification of Diet in Renal Disease Equation. The accuracy of the calculation is poor when the creatinine is normal. Calculated values >90 mL/min/1.73m2 are not reported. This equation has not been validated in children (<18 years), women, the elderly (>70 years), or ethnic groups other than Caucasians and Americans. Specimen Plasma specimen Performing Organization Address City/[facility] Cent[facility] Phone Number [facility] DEPARTMENT OF PATHOLOGY AND [address] [place] [address] Phosphorus level (07/29/2017 4:00 AM)Only the most recent of15 resultswithin the time period is included. Phosphorus 2.5 2.4 - 4.5 mg/dL [facility] DEPARTMENT OF PATHOLOGY AND GENOMIC MEDICINE Specimen Plasma specimen Performing Organization Address City/[facility] Centercode Phone Number [facility] DEPARTMENT OF PATHOLOGY AND [address] [place] [address] Magnesium level (07/29/2017 4:00 AM)Only the most recent of14 resultswithin the time period is included. Magnesium 2.1 1.6 - 2.4 mg/dL [facility] DEPARTMENT OF PATHOLOGY AND GENOMIC MEDICINE Specimen Plasma specimen Performing Organization Address City/[facility] Centercode Phone Number [facility] DEPARTMENT OF PATHOLOGY AND [address] [place] [address] Basic metabolic panel (07/29/2017 4:00 AM)Only the most recent of15 resultswithin the time period is included. Sodium 136 135 - 148 mEq/L [facility] DEPARTMENT OF PATHOLOGY AND GENOMIC MEDICINE Potassium 4.2 3.5 - 5.0 mEq/L [facility] DEPARTMENT OF PATHOLOGY AND GENOMIC MEDICINE Chloride 98 98 - 112 mEq/L [facility] DEPARTMENT OF PATHOLOGY AND GENOMIC MEDICINE CO2 24 24 - 31 mEq/L [facility] DEPARTMENT OF PATHOLOGY AND GENOMIC MEDICINE Anion gap 14 7 - 15 mEq/L [facility] DEPARTMENT OF PATHOLOGY Comment: AND GENOMIC MEDICINE Starting from February , anion gap calculation no longer incorporates potassium. Please note the change. BUN 12 8 - 23 mg/dL [facility] DEPARTMENT OF PATHOLOGY AND GENOMIC MEDICINE Creatinine 1.1 0.7 - 1.2 mg/dL [facility] DEPARTMENT OF PATHOLOGY AND GENOMIC MEDICINE Glucose 85 65 - 99 mg/dL [facility] DEPARTMENT OF PATHOLOGY AND GENOMIC MEDICINE Calcium 8.8 8.8 - 10.2 mg/dL [facility] DEPARTMENT OF PATHOLOGY AND GENOMIC MEDICINE Specimen Plasma specimen Performing Organization Address City/[facility] Centercoks Phone Number [facility] DEPARTMENT OF PATHOLOGY AND [address] [place] [address] POC glucose (07/27/2017 9:10 PM)Only the most recent of51 resultswithin the time period is included. POC glucose 103 (H) 65 - 99 mg/dL [facility] DEPARTMENT OF PATHOLOGY Comment: AND GENOMIC MEDICINE [facility] Notified RN Meter ID: [id number] Np: Pedro Chavarria Performing Organization Address City/[facility] Centercoks Phone Number [facility] DEPARTMENT OF PATHOLOGY AND [address] [place] [address] CT Guided Chest Tube (07/25/2017 5:07 PM) Narrative Performed At EXAMINATION:CT GUIDED CHEST TUBE [facility] CLINICAL HISTORY:Pneumothorax TECHNIQUE: The risks, benefits, and alternatives were discussed with the patient and written informed consent was obtained. Initial CT imaging through the chest demonstrates recurrent moderate left pneumothorax. A site for needle injury was selected and the skin was prepped and draped in the usual sterile fashion. After local administration of 1% buffered lidocaine, a tiny dermatotomy was made. Using CT guidance, the pneumothorax space was accessed with 18-gauge introducer needle with placement of guidewire into the second intercostal space by anterior approach. An 8 Peruvian pigtail catheter was placed over the guidewire and placed near the anterior apex. The catheter was secured on the skin with sutures and adhesive pad. CT scanning was performed using radiation dose reduction techniques. Conscious sedation: A combination of intravenous Versed and fentanyl was given. The patient was monitored throughout the procedure and in the postprocedure recovery area. Itum-ik-ayiv sedation time was 30 minutes. EBL: Minimal. Complications: None. Assistants: None. IMPRESSION: CT-guided placement of left pleural catheter as described. [id number] Procedure Note Interface, Radiology Results Incoming - 07/25/2017 5:22 PM CDT EXAMINATION: CT GUIDED CHEST TUBE CLINICAL HISTORY: Pneumothorax TECHNIQUE: The risks, benefits, and alternatives were discussed with the patient and written informed consent was obtained. Initial CT imaging through the chest demonstrates recurrent moderate left pneumothorax. A site for needle injury was selected and the skin was prepped and draped in the usual sterile fashion. After local administration of 1% buffered lidocaine, a tiny dermatotomy was made. Using CT guidance, the pneumothorax space was accessed with 18-gauge introducer needle with placement of guidewire into the second intercostal space by anterior approach. An 8 Peruvian pigtail catheter was placed over the guidewire and placed near the anterior apex. The catheter was secured on the skin with sutures and adhesive pad. CT scanning was performed using radiation dose reduction techniques. Conscious sedation: A combination of intravenous Versed and fentanyl was given. The patient was monitored throughout the procedure and in the postprocedure recovery area. Bsnd-ij-vmgx sedation time was 30 minutes. EBL: Minimal. Complications: None. Assistants: None. IMPRESSION: CT-guided placement of left pleural catheter as described. [id number] Performing Organization Address [facility] Phone Number [employer] [address] [place] [address] XR Chest 1 Vw (07/23/2017 3:15 PM)Only the most recent of2 resultswithin the time period is included. Narrative Performed At EXAMINATION:XR CHEST 1 VW [facility]ands CLINICAL HISTORY:Chest Tube Placement COMPARISON:July 23, 2017 IMPRESSION: A small bore medial left pleural catheter is in stable position. Very trace residual pneumothorax is unchanged. Small left pleural effusion is seen. Stable exam. [id number] Procedure Note Interface, Radiology Results Incoming - 07/23/2017 3:21 PM CDT EXAMINATION: XR CHEST 1 VW CLINICAL HISTORY: Chest Tube Placement COMPARISON: July 23, 2017 IMPRESSION: A small bore medial left pleural catheter is in stable position. Very trace residual pneumothorax is unchanged. Small left pleural effusion is seen. Stable exam. [id number] Performing Organization Address [facility] [place] Phone Number [employer] [address] [place] [address] CT Insert Pleura Cath (07/23/2017 1:45 PM) Narrative Performed At EXAMINATION:CT INSERT PLEURA CATH [facility] CLINICAL HISTORY:Pneumothorax s p TONO lobectomy. On apixabanreceived morning dose. COMPARISON: Chest x-ray on the same date TECHNIQUE: CT-guided left chest tube placement The risks, benefits, and alternatives were discussed with the patient and written informed consent was obtained. A site for needle injury was selected and the skin was prepped and draped in the usual sterile fashion. After local administration of 1% buffered lidocaine, a tiny dermatotomy was made. CT guidance was used to place a 6.3 Peruvian pleural chest tube into the left pneumothorax. The second intercostal space anteriorly. A 60 cc syringe was then utilized to aspirate the air and the lung was completely reexpanded at the completion of the procedure. The patient was discharged to the radiology recovery area for monitoring prior to discharge. Conscious sedation: 1.5 mg of IV Versed and 150 mcg of IV fentanyl.. The patient was monitored throughout the procedure and in the postprocedure recovery area. Moderate Sedation Intraservice Time: Under physician supervision, Versed and Fentanyl administered intravenously for moderate sedation.Pulse oximetry, heart rate and BP are continuously monitored by an independent trained observer present.The physician spent 20 minutes of face to face time with the patient. EBL: None. Complications: None. Assistants: None. IMPRESSION: 1.Successful CT-guided placement of left chest tube with evacuation of the pneumothorax. Procedure Note Interface, Radiology Results Incoming - 07/23/2017 4:36 PM CDT EXAMINATION: CT INSERT PLEURA CATH CLINICAL HISTORY: Pneumothorax s p TONO lobectomy. On apixaban received morning dose. COMPARISON: Chest x-ray on the same date TECHNIQUE: CT-guided left chest tube placement The risks, benefits, and alternatives were discussed with the patient and written informed consent was obtained. A site for needle injury was selected and the skin was prepped and draped in the usual sterile fashion. After local administration of 1% buffered lidocaine, a tiny dermatotomy was made. CT guidance was used to place a 6.3 Peruvian pleural chest tube into the left pneumothorax. The second intercostal space anteriorly. A 60 cc syringe was then utilized to aspirate the air and the lung was completely reexpanded at the completion of the procedure. The patient was discharged to the radiology recovery area for monitoring prior to discharge. Conscious sedation: 1.5 mg of IV Versed and 150 mcg of IV fentanyl.. The patient was monitored throughout the procedure and in the postprocedure recovery area. Moderate Sedation Intraservice Time: Under physician supervision, Versed and Fentanyl administered intravenously for moderate sedation. Pulse oximetry, heart rate and BP are continuously monitored by an independent trained observer present. The physician spent 20 minutes of face to face time with the patient. EBL: None. Complications: None. Assistants: None. IMPRESSION: 1. Successful CT-guided placement of left chest tube with evacuation of the pneumothorax. Performing Organization Address [facility] Phone Number [facility] [address] [place] [phone] Partial thromboplastin time, activated (07/23/2017 5:20 AM)Only the most recent of5 resultswithin the time period is included. PTT 28.6 23.0 - 36.0 sec [facility] DEPARTMENT OF PATHOLOGY Comment: AND [facility] PTT therapeutic range for unfractionated heparin is 61.0-112.0 seconds which corresponds to Anti-Xa 0.3-0.7 U/ml. Specimen Blood Performing Organization Address [facility] Phone Number [facility] DEPARTMENT OF PATHOLOGY AND [address] [place] [phone] [facility] Prothrombin time with INR (07/23/2017 5:20 AM)Only the most recent of5 resultswithin the time period is included. Prothrombin time 14.5 12.0 - 15.0 sec [facility] DEPARTMENT OF PATHOLOGY AND [employer] MEDICINE INR 1.1 [facility] DEPARTMENT OF Comment: PATHOLOGY AND GENOMIC The International Normalized Ratio (INR) is a therapeutic MEDICINE monitoring tool for patients who are stable on oral anticoagulant therapy. An INR of 2.0-3.0 is suggested for deep vein thrombosis/pulmonary embolism. Specimen Blood Performing Organization Address [facility] Phone Number [facility] DEPARTMENT PATHOLOGY AND [address] [place] [phone] [facility] Hepatic function panel (07/19/2017 5:00 AM) Albumin 2.4 (L) 3.5 - 5.0 g/dL [facility] DEPARTMENT OF PATHOLOGY AND GENOMIC MEDICINE Total bilirubin 0.3 0.0 - 1.2 mg/dL [facility] DEPARTMENT OF PATHOLOGY AND GENOMIC MEDICINE Bilirubin direct <0.2 0.0 - 0.3 mg/dL [facility] DEPARTMENT OF PATHOLOGY AND GENOMIC MEDICINE Alkaline phosphatase 36 (L) 40 - 129 U/L [facility] DEPARTMENT OF PATHOLOGY AND GENOMIC MEDICINE Protein 5.3 (L) 6.3 - 8.3 g/dL [facility] DEPARTMENT OF Comment: PATHOLOGY AND GENOMIC 4.6-7.0 g/dL MEDICINE 1 week 4.4-7.6 g/dL 7 months-1year5.1-7.3 g/dL 1-2 years5.6-7.5 g/dL >3 years6.0-8.0 g/dL 18-150 6.3-8.3 g/dL ALT 23 5 - 50 U/L [facility] DEPARTMENT OF PATHOLOGY AND GENOMIC MEDICINE AST 45 10 - 50 U/L [facility] DEPARTMENT OF PATHOLOGY AND [facility] Specimen Plasma specimen Performing Organization Address [facility] Phone Number [facility] DEPARTMENT OF PATHOLOGY AND [address] [place] [phone] [facility] ECG 12 lead (07/18/2017 2:15 PM)Only the most recent of3 resultswithin the time period is included. Ventricular rate 84 [facility] MUSE Atrial rate 72 [facility] M[facility] QRSD interval 140 [facility] M[facility] QT interval 422 [facility] M[facility] QTC interval 498 [facility] M[facility] QRS axis 1 27 [facility] MUSE T wave axis 52 [facility] M[facility] EKG impression Atrial fibrillation-Right bundle branch block-Septal infarct , age undetermined-Abnormal ECG-In automated comparison with ECG of 17-JUL-2017 03 :19,-Previous ECG has undetermined rhythm, needs review-T wave inversion no longer evident in Inferior [facility] MUSE leads- :10 PM Performing Organization Address [facility] Phone Number [facility] [address] [place] [address] Cv electrophysiology procedure (07/18/2017 2:07 PM) Narrative Performed At Three shocks at 200J, 300J, and 360J are unsuccessful at converting A. HM [facility] Fib. Performing Organization Address [facility] Phone Number [facility] [address] [place] [address] Thyroid stimulating hormone (07/18/2017 10:53 AM) TSH 0.61 0.27 - 4.20 uIU/mL [facility] DEPARTMENT OF PATHOLOGY AND GENOMIC MEDICINE Specimen Plasma specimen Performing Organization Address [facility] Phone Number [facility] DEPARTMENT OF PATHOLOGY AND [address] [place] [address] Arterial blood gas (07/18/2017 3:03 AM)Only the most recent of10 resultswithin the time period is included. pH, arterial 7.42 7.35 - 7.45 [facility] DEPARTMENT OF PATHOLOGY AND GENOMIC MEDICINE pCO2, arterial 33 (L) 35 - 45 mmHg [facility] DEPARTMENT OF PATHOLOGY AND GENOMIC MEDICINE pO2, arterial 343 (H) 80 - 90 mmHg [facility] DEPARTMENT OF PATHOLOGY AND GENOMIC MEDICINE Bicarbonate, arterial 20.7 (L) 21.0 - 28.0 mmol/L [facility] DEPARTMENT OF PATHOLOGY AND GENOMIC MEDICINE Base excess, arterial -3 (L) -2 - 2 mEq/L [facility] DEPARTMENT OF PATHOLOGY AND GENOMIC MEDICINE O2 saturation, arterial 100 95 - 100 % [facility] DEPARTMENT OF PATHOLOGY AND GENOMIC MEDICINE Specimen Blood Performing Organization Address [facility] Phone Number [facility] OF PATHOLOGY AND [address] [place] [address] Troponin (07/18/2017 2:52 AM)Only the most recent of2 resultswithin the time period is included. Troponin <0.30 0.00 - 0.30 ng/mL [facility] DEPARTMENT OF PATHOLOGY Comment: AND GENOMIC MEDICINE 0.30 - 1.49 ng/mlMay indicate increased risk of acute coronary syndrome. >=1.5 ng/mlConsistent with acute myocardial infarction. The diagnostic value of a single normal or non-diagnostic result is questionable.Serial samples at 2-6 hour intervals are required to rule out acute myocardial injury. Specimen Plasma specimen Performing Organization Address [facility] Phone Number [facility] DEPARTMENT OF PATHOLOGY AND [address] [place] [address] [employer] [facility] Comprehensive metabolic panel (07/18/2017 2:52 AM)Only the most recent of2 resultswithin the time period is included. Sodium 128 (L) 135 - 148 mEq/L [facility] DEPARTMENT OF PATHOLOGY AND GENOMIC MEDICINE Potassium 3.9 3.5 - 5.0 mEq/L [facility] DEPARTMENT OF PATHOLOGY AND GENOMIC MEDICINE Chloride 88 (L) 98 - 112 mEq/L [facility] DEPARTMENT OF PATHOLOGY AND GENOMIC MEDICINE CO2 20 (L) 24 - 31 mEq/L [facility] DEPARTMENT OF PATHOLOGY AND GENOMIC MEDICINE Anion gap 20 (H) 7 - 15 mEq/L [facility] DEPARTMENT OF Comment: PATHOLOGY AND GENOMIC Starting from February , anion gap calculation MEDICINE no longer incorporates potassium. Please note the change. BUN 31 (H) 8 - 23 mg/dL [facility] DEPARTMENT OF PATHOLOGY AND GENOMIC MEDICINE Creatinine 1.3 (H) 0.7 - 1.2 mg/dL [facility] DEPARTMENT OF PATHOLOGY AND GENOMIC MEDICINE Glucose 100 (H) 65 - 99 mg/dL [facility] DEPARTMENT OF PATHOLOGY AND GENOMIC MEDICINE Calcium 8.4 (L) 8.8 - 10.2 mg/dL [facility] DEPARTMENT OF PATHOLOGY AND GENOMIC MEDICINE Protein 6.0 (L) 6.3 - 8.3 g/dL [facility] DEPARTMENT OF Comment: PATHOLOGY AND GENOMIC 4.6-7.0 g/dL MEDICINE 1 week 4.4-7.6 g/dL 7 months-1year5.1-7.3 g/dL 1-2 years5.6-7.5 g/dL >3 years6.0-8.0 g/dL 18-150 6.3-8.3 g/dL Albumin 3.0 (L) 3.5 - 5.0 g/dL [facility] DEPARTMENT OF PATHOLOGY AND GENOMIC MEDICINE A/G ratio 1.0 0.7 - 3.8 [facility] DEPARTMENT OF PATHOLOGY AND GENOMIC MEDICINE Alkaline phosphatase 38 (L) 40 - 129 U/L [facility] DEPARTMENT OF PATHOLOGY AND GENOMIC MEDICINE AST 51 (H) 10 - 50 U/L [facility] DEPARTMENT OF PATHOLOGY AND GENOMIC MEDICINE ALT 24 5 - 50 U/L [facility] DEPARTMENT OF PATHOLOGY AND GENOMIC MEDICINE Total bilirubin 0.7 0.0 - 1.2 mg/dL [facility] DEPARTMENT OF PATHOLOGY AND GENOMIC MEDICINE Specimen Plasma specimen Performing Organization Address City/State/Zipcode Phone Number [facility] DEPARTMENT OF PATHOLOGY AND [address] [place] [phone] [facility] Ionized calcium (07/17/2017)Only the most recent of3 resultswithin the time period is included. pH 7.47 [facility] DEPARTMENT OF PATHOLOGY AND GENOMIC MEDICINE Ionized calcium 1.10 (L) 1.11 - 1.32 mmol/L [facility] DEPARTMENT OF PATHOLOGY AND GENOMIC MEDICINE Specimen Plasma specimen Performing Organization Address City/State/Zipcode Phone Number [facility] DEPARTMENT OF PATHOLOGY AND [address] [place] [address] [employer] MEDICINE CBC hemogram (07/16/2017 2:00 AM) WBC 11.09 (H) 4.50 - 11.00 k/uL [facility] DEPARTMENT OF PATHOLOGY AND GENOMIC MEDICINE RBC 3.70 (L) 4.40 - 6.00 m/uL [facility] DEPARTMENT OF PATHOLOGY AND GENOMIC MEDICINE HGB 10.9 (L) 14.0 - 18.0 g/dL [facility] DEPARTMENT OF PATHOLOGY AND GENOMIC MEDICINE HCT 33.1 (L) 41.0 - 51.0 % [facility] DEPARTMENT OF PATHOLOGY AND GENOMIC MEDICINE MCV 89.5 82.0 - 100.0 fL [facility] DEPARTMENT OF PATHOLOGY AND GENOMIC MEDICINE MCH 29.5 27.0 - 34.0 pg [facility] DEPARTMENT OF PATHOLOGY AND GENOMIC MEDICINE MCHC 32.9 31.0 - 37.0 g/dL [facility] DEPARTMENT OF PATHOLOGY AND GENOMIC MEDICINE RDW - SD 40.9 37.0 - 55.0 fL [facility] DEPARTMENT OF PATHOLOGY AND GENOMIC MEDICINE MPV 9.5 8.8 - 13.2 fL [facility] DEPARTMENT OF PATHOLOGY AND GENOMIC MEDICINE Platelet count 223 150 - 400 k/uL [facility] DEPARTMENT OF PATHOLOGY AND GENOMIC MEDICINE Nucleated RBC 0.00 /100 WBC [facility] DEPARTMENT OF PATHOLOGY AND GENOMIC MEDICINE Specimen Blood Performing Organization Address [facility]ode Phone Number [facility] DEPARTMENT OF PATHOLOGY AND [address] [place] [address] [employer] MEDICINE ECG Pre/Post Op (07/15/2017 7:29 PM) Ventricular rate 64 [facility] Atrial rate 64 [facility] IA interval 146 [facility] QRSD interval 136 [facility] QT interval 412 [facility] QTC interval 425 [facility] P axis 1 65 [facility] QRS axis 1 -28 [facility] T wave axis -2 [facility] EKG impression Normal sinus rhythm-Right bundle branch [facility] block-Possible Anteroseptal infarct , age undetermined-Abnormal ECG-No previous ECGs available- Performing Organization Address [facility]ode Phone Number [facility] [address] [place] [address] Sodium level, syringe (07/15/2017 4:02 PM)Only the most recent of7 resultswithin the time period is included. Sodium, syringe 135 135 - 148 mEq/L [facility] DEPARTMENT OF PATHOLOGY AND GENOMIC MEDICINE Specimen Blood Performing Organization Address [facility] Phone Number [facility] DEPARTMENT OF PATHOLOGY AND [address] [place] [address] Potassium, syringe (07/15/2017 4:02 PM)Only the most recent of7 resultswithin the time period is included. Potassium, syringe 5.3 (H) 3.5 - 5.0 mEq/L [facility] DEPARTMENT OF PATHOLOGY AND GENOMIC MEDICINE Specimen Blood Performing Organization Address [facility] Phone Number [facility] DEPARTMENT OF PATHOLOGY AND [address] [place] [address] Ionized calcium, arterial (07/15/2017 4:02 PM)Only the most recent of7 resultswithin the time period is included. Ionized calcium, arterial 1.09 (L) 1.11 - 1.32 mmol/L [facility] DEPARTMENT OF PATHOLOGY AND GENOMIC MEDICINE Specimen Blood Performing Organization Address [facility] Phone Number [facility] DEPARTMENT OF PATHOLOGY AND [address] [place] [address] Hemoglobin, syringe (07/15/2017 4:02 PM)Only the most recent of7 resultswithin the time period is included. Hemoglobin, syringe 10.3 (L) 14.0 - 18.0 g/dL [facility] DEPARTMENT OF PATHOLOGY AND GENOMIC MEDICINE Specimen Blood Performing Organization Address [facility] Phone Number [facility] DEPARTMENT OF PATHOLOGY AND [address] [place] [address] Glucose level, syringe (07/15/2017 4:02 PM)Only the most recent of7 resultswithin the time period is included. Glucose, syringe 148 (H) 65 - 99 mg/dL [facility] DEPARTMENT OF PATHOLOGY AND GENOMIC MEDICINE Specimen Blood Performing Organization Address [facility] Phone Number [facility] DEPARTMENT OF PATHOLOGY AND [address] [place] [address] Arterial blood gas, corrected (07/15/2017 4:02 PM) pH, arterial 7.34 (L) 7.35 - 7.45 [facility] DEPARTMENT OF PATHOLOGY AND GENOMIC MEDICINE pCO2, arterial 43 35 - 45 mmHg [facility] DEPARTMENT OF PATHOLOGY AND GENOMIC MEDICINE pO2, arterial 327 (H) 80 - 90 mmHg [facility] DEPARTMENT OF PATHOLOGY AND GENOMIC MEDICINE Temperature, Celsius 37.0 Degrees C [facility] DEPARTMENT OF PATHOLOGY AND GENOMIC MEDICINE O2 saturation, arterial 100 95 - 100 % [facility] DEPARTMENT OF PATHOLOGY AND GENOMIC MEDICINE pH, arterial corrected 7.34 [facility] DEPARTMENT OF PATHOLOGY AND GENOMIC MEDICINE pCO2, arterial corrected 43 mmHg [facility] DEPARTMENT OF PATHOLOGY AND GENOMIC MEDICINE pO2, arterial corrected 327 mmHg [facility] DEPARTMENT OF PATHOLOGY AND GENOMIC MEDICINE Base excess, arterial -3 (L) -2 - 2 mEq/L [facility] DEPARTMENT OF PATHOLOGY AND GENOMIC MEDICINE Specimen Blood Performing Organization Address City/[facility]ode Phone Number [facility] DEPARTMENT OF PATHOLOGY AND [address] [place] [address] [facility] Surgical pathology request (07/15/2017 3:33 PM) [facility] DEPARTMENT OF PATHOLOGY AND GENOMIC MEDICINE Surgical pathology report See link below for PDF [facility] DEPARTMENT OF Lab Report PATHOLOGY AND GENOMIC MEDICINE Performing Organization Address [facility] Phone Number [facility] DEPARTMENT OF PATHOLOGY AND [address] [place] [address] XR Chest 2 Vw (07/09/2017 1:02 PM) Narrative Performed At EXAMINATION:XR CHEST 2 VW [facility] CLINICAL HISTORY:R05 Cough, Cough COMPARISON:None IMPRESSION: Heart and mediastinum are normal.Thoracic aorta is minimally tortuous.Pulmonary vessels are in the normal range.Lung posey demonstrate some minimal scattered fibrocalcific changes but no active infiltrate. [facility]-[id number] Procedure Note Hm Interface, Radiology Results Incoming - 07/09/2017 1:44 PM CDT EXAMINATION: XR CHEST 2 VW CLINICAL HISTORY: R05 Cough, Cough COMPARISON: None IMPRESSION: Heart and mediastinum are normal. Thoracic aorta is minimally tortuous. Pulmonary vessels are in the normal range. Lung posey demonstrate some minimal scattered fibrocalcific changes but no active infiltrate. [facility]-[id number] Performing Organization Address City/[facility] Cent[facility]ode Phone Number [facility] [address] [place] [address] Prepare RBC (07/09/2017 12:00 PM) Product name Apheresis Red Cell AS3 #1 [facility] DEPARTMENT OF LR PATHOLOGY AND GENOMIC MEDICINE Unit number [id number] [facility] DEPARTMENT OF PATHOLOGY AND GENOMIC MEDICINE Product code [id number] [facility] DEPARTMENT OF PATHOLOGY AND GENOMIC MEDICINE Dispense status Returned to BB not [facility] DEPARTMENT OF transfused PATHOLOGY AND GENOMIC MEDICINE Blood expiration date [id number] [facility] DEPARTMENT OF PATHOLOGY AND GENOMIC MEDICINE Blood type code 5100 [facility] DEPARTMENT OF PATHOLOGY AND GENOMIC MEDICINE Blood type O POSITIVE [facility] DEPARTMENT OF PATHOLOGY AND GENOMIC MEDICINE Product name Red Blood Cells -1, [facility] DEPARTMENT OF Leukored PATHOLOGY AND GENOMIC MEDICINE Unit number [id number] [facility] DEPARTMENT OF PATHOLOGY AND GENOMIC MEDICINE Product code [id number] [facility] DEPARTMENT OF PATHOLOGY AND GENOMIC MEDICINE Dispense status Returned to BB not [facility] DEPARTMENT OF transfused PATHOLOGY AND GENOMIC MEDICINE Blood expiration date [id number] [facility] DEPARTMENT OF PATHOLOGY AND GENOMIC MEDICINE Blood type code 5100 [facility] DEPARTMENT OF PATHOLOGY AND GENOMIC MEDICINE Blood type O POSITIVE [facility] DEPARTMENT OF PATHOLOGY AND GENOMIC MEDICINE Performing Organization Address City/State/[facility] Phone Number [facility] DEPARTMENT OF PATHOLOGY AND [address] [place] [phone] GENOMIC MEDICINE Type and screen (07/09/2017 12:00 PM) ABO grouping O [facility] DEPARTMENT OF PATHOLOGY AND GENOMIC MEDICINE Rh type POS [facility] DEPARTMENT OF PATHOLOGY AND GENOMIC MEDICINE Antibody screen (gel) NEG [facility] DEPARTMENT OF PATHOLOGY AND GENOMIC MEDICINE Specimen Blood Performing Organization Address City/[facility]/Zipcode Phone Number [facility] DEPARTMENT OF PATHOLOGY AND [address] [place] [phone] GENOMIC MEDICINE PET/CT Whole Body External Study (05/22/2017 3:46 PM) Narrative Performed At This exam was not acquired at a [facility] facility and has not been [facility] interpreted by a [employer] Provider.The exam was imported into our imaging system for comparisons purposes. Performing Organization Address City/[facility]/Zipcode Phone Number [facility] [address] [place] [address] PET/CT Skull Base Mid Thigh External Study (05/22/2017) Narrative Performed At after 04/25/2017 Insurance Payer Benefit Plan / Group Subscriber ID Type Phone Address RODERICK BRYANT xxxxxxxxxxxx PPO [phone] Home: [phone]
[2018-04-26] MEDS ORDERED: VANCOMYCIN 1 GM/250 ML BAG ONE (18:26)
[2018-04-26] MEDS ORDERED: METHYLPREDNISOLONE 125 MG INJ ONE (18:26)
[2018-04-26] MEDS ORDERED: IPRATROPIUM BROM 0.5MG/2.5ML ONE (18:26)
[2018-04-26] MEDS ORDERED: NA CHLORIDE 0.9% 500 ML ONE (18:26)
[2018-04-26] MEDS ORDERED: ALBUTEROL 2.5 MG/3 ML NEB SOL ONE (18:26)
[2018-04-26] MEDS ORDERED: FAMOTIDINE 20 MG/2 ML VIAL IV ONE (18:27)
[2018-04-26] MEDS ORDERED: CEFEPIME 1 GM/100 ML BAG IV ONE (18:27)
[2018-04-26 18:36] LABS: Absolute Lymphocytes (CBC) 0.2 K/uL (0.7-4.9); Absolute Monocytes 0.9 K/uL (0.1-1.3); Absolute Neutrophil 13.3 K/uL (1.8-8.0); Basophils % 0.2 % (0-1.3); Eosinophils % 0.2 % (0-4.4); Hematocrit 37.8 % (39.6-49.0); Lymphocytes % 1.4 % (15.3-44.8); MCH 28.1 pg (27.0-35.0); MCV 84.6 fL (80-100); MPV 7.8 fL (7.6-11.3); Monocytes % 5.9 % (3.3-12.3); RBC Red Blood Cell Count 4.46 M/uL (4.33-5.43)
[2018-04-26 18:41] LABS: Protime INR 1.99
[2018-04-26 18:50] LABS: Albumin 3.7 g/dL (3.4-5.0); Bilirubin Direct 0.1 mg/dL (0-0.2); Bilirubin Total 0.4 mg/dL (0.2-1.0); CKMB Creatine Kinase MB 2.4 ng/mL (0.3-3.6); Potassium 4.5 mmol/L (3.5-5.1); Protein, Total 7.5 g/dL (6.4-8.2)
--- NOTE | 2018-04-26 18:51 | EDPHYS ---
Physician Documentation [facility] Name: Angelo Narvaez Age: 62 yrs Sex: Male : 1955 Arrival Date: 04/26/2018 Time: 17:43 Bed 6 Private MD: Danial Wilkins ED Physician BriceDixony HPI: 04/26 18:09 This 62 yrs old Male presents to ER via EMS with complaints of Breathing joseline Difficulty. 18:09 The patient has shortness of breath at rest, with light activity. Onset: The joseline symptoms/episode began/occurred 4 week(s) ago. Duration: The symptoms are continuous, and are steadily getting worse. The patient's shortness of breath has no apparent modifying factors. Associated signs and symptoms: The patient has no apparent associated signs or symptoms. Severity of symptoms: At their worst the symptoms were moderate in the emergency department the symptoms are unchanged. The patient has experienced similar episodes in the past, multiple times. Historical: - Allergies: 17:52 No Known Allergies; hj - PMHx: 17:52 HTN; COPD; A fib; hj - PSHx: 17:52 Unable to obtain; hj - Immunization history:: Adult Immunizations unknown. - Social history:: Smoking status: Patient/guardian denies using tobacco, Patient/guardian denies using alcohol. - Ebola Screening: : Patient negative for fever greater than or equal to 101.5 degrees Fahrenheit, and additional compatible Ebola Virus Disease symptoms Patient denies exposure to infectious person Patient denies travel to an Ebola-affected area in the 21 days before illness onset. - Family history:: not pertinent. ROS: 18:09 Constitutional: Negative for fever, chills, and weight loss, Eyes: Negative for injury, joseline pain, redness, and discharge, ENT: Negative for injury, pain, and discharge, Neck: Negative for injury, pain, and swelling, Cardiovascular: Negative for chest pain, palpitations, and edema, Abdomen/GI: Negative for abdominal pain, nausea, vomiting, diarrhea, and constipation, Back: Negative for injury and pain, : Negative for injury, bleeding, discharge, and swelling, MS/Extremity: Negative for injury and deformity, Skin: Negative for injury, rash, and discoloration, Neuro: Negative for headache, weakness, numbness, tingling, and seizure, Psych: Negative for depression, anxiety, suicide ideation, homicidal ideation, and hallucinations, Allergy/Immunology: Negative for hives, rash, and allergies, Endocrine: Negative for neck swelling, polydipsia, polyuria, polyphagia, and marked weight changes, Hematologic/Lymphatic: Negative for swollen nodes, abnormal bleeding, and unusual bruising. 18:09 Respiratory: Positive for cough, dyspnea on exertion, shortness of breath, wheezing, expiratory. Exam: 18:09 Constitutional: This is a well developed, well nourished patient who is awake, alert, joseline and in no acute distress. Head/Face: Normocephalic, atraumatic. Eyes: Pupils equal round and reactive to light, extra-ocular motions intact. Lids and lashes normal. Conjunctiva and sclera are non-icteric and not injected. Cornea within normal limits. Periorbital areas with no swelling, redness, or edema. ENT: Nares patent. No nasal discharge, no septal abnormalities noted. Tympanic membranes are normal and external auditory canals are clear. Oropharynx with no redness, swelling, or masses, exudates, or evidence of obstruction, uvula midline. Mucous membranes moist. Neck: Trachea midline, no thyromegaly or masses palpated, and no cervical lymphadenopathy. Supple, full range of motion without nuchal rigidity, or vertebral point tenderness. No Meningismus. Chest/axilla: Normal chest wall appearance and motion. Nontender with no deformity. No lesions are appreciated. Abdomen/GI: Soft, non-tender, with normal bowel sounds. No distension or tympany. No guarding or rebound. No evidence of tenderness throughout. Back: No spinal tenderness. No costovertebral tenderness. Full range of motion. Male : Normal genitalia with no discharge or lesions. Skin: Warm, dry with normal turgor. Normal color with no rashes, no lesions, and no evidence of cellulitis. MS/ Extremity: Pulses equal, no cyanosis. Neurovascular intact. Full, normal range of motion. Neuro: Awake and alert, GCS 15, oriented to person, place, time, and situation. Cranial nerves II-XII grossly intact. Motor strength 5/5 in all extremities. Sensory grossly intact. Cerebellar exam normal. Normal gait. Psych: Awake, alert, with orientation to person, place and time. Behavior, mood, and affect are within normal limits. 18:09 Cardiovascular: Rate: tachycardic, Rhythm: regular, Heart sounds: normal, Edema: is not appreciated, JVD: is not appreciated. Vital Signs: 17:52 BP 195 / 100; Pulse 130; Resp 26; Pulse Ox 75% on R/A; hj 17:52 Pulse Ox 100% on Nebulizer Mask; hj 18:44 BP 189 / 98; Pulse 125; Resp 24; Temp 99.7(O); Pulse Ox 96% on Nebulizer Mask; Weight hj 65.77 kg; Height 5 ft. 5 in. (165.10 cm); 19:32 BP 139 / 85; Pulse 132; Resp 21 S; Pulse Ox 92% on 2 lpm NC; Pain 0/10; jd3 20:28 BP 121 / 69; Pulse 111; Resp 22 S; Pulse Ox 93% on 2 lpm NC; Pain 0/10; jd3 21:34 BP 134 / 87; Pulse 109; Resp 22; Pulse Ox 95% on 2 lpm NC; Pain 0/10; jd3 18:44 Body Mass Index 24.13 (65.77 kg, 165.10 cm) MDM: 17:59 Patient medically screened. [facility] 18:11 Data reviewed: vital signs, nurses notes, lab test result(s), EKG, radiologic studies, joseline plain films. 04/26 18:09 Order name: Basic Metabolic Panel; Complete Time: 19:04 [facility] 04/26 18:09 Order name: CBC with Diff [facility] 04/26 18:09 Order name: Ckmb; Complete Time: 19:04 [facility] 04/26 18:09 Order name: CPK; Complete Time: 19:04 [facility] 04/26 18:09 Order name: LFT's; Complete Time: 19:04 [facility] 04/26 18:09 Order name: Magnesium; Complete Time: 19:04 [facility] 04/26 18:09 Order name: PT-INR; Complete Time: 19:04 [facility] 04/26 18:09 Order name: Ptt, Activated; Complete Time: 19:04 [facility] 04/26 18:09 Order name: Troponin (emerg Dept Use Only); Complete Time: 19:04 [facility] 04/26 18:09 Order name: XRAY Chest (1 view) [facility] 04/26 18:09 Order name: Blood Culture Adult (2) [facility] 04/26 18:09 Order name: Procalcitonin; Complete Time: 19:04 [facility] 04/26 18:09 Order name: Lactate; Complete Time: 19:04 [facility] 04/26 20:04 Order name: CBC Smear Scan EDMS 04/26 18:09 Order name: EKG; Complete Time: 18:10 [facility] 04/26 18:09 Order name: Cardiac monitoring; Complete Time: 18:17 [facility] 04/26 18:09 Order name: EKG - Nurse/Tech; Complete Time: 18:17 [facility] 04/26 18:09 Order name: IV Saline Lock; Complete Time: 18:17 [facility] 04/26 18:09 Order name: Labs collected and sent; Complete Time: 18:17 [facility] 04/26 18:09 Order name: O2 Per Protocol; Complete Time: 18:17 [facility] 04/26 18:09 Order name: O2 Sat Monitoring; Complete Time: 18:17 [facility] 04/26 18:55 Order name: CONS Physician Consult EDWV Administered Medications: 18:10 Drug: NS 0.9% 500 ml Route: IV; Rate: bolus; Site: left forearm; 19:21 Follow up: Response: No adverse reaction; IV Status: Completed infusion; IV Intake: jd3 500ml 18:10 Drug: SOLU-Medrol 125 mg Route: IVP; Site: left forearm; hj 19:07 Follow up: Response: No adverse reaction hj 18:10 Drug: Albuterol - atroVENT (3:1) (2.5 mg - 0.5 mg) 3 ml Route: Nebulizer; hj 19:06 Follow up: Response: No adverse reaction hj 19:22 Follow up: Response: No adverse reaction jd3 18:10 Drug: Pepcid 20 mg Route: IVP; Site: left forearm; hj 19:06 Follow up: Response: No adverse reaction hj 18:32 Drug: Cefepime 1 grams Route: IVPB; Rate: 200 ml/hr; Infused Over: 30 mins; Site: left hj forearm; 19:21 Follow up: Response: No adverse reaction; IV Status: Completed infusion jd3 19:20 Drug: vancoMYCIN 1 grams Route: IVPB; Infused Over: 2 hrs; Site: left forearm; jd3 20:08 Follow up: Response: No adverse reaction; IV Status: Infusion continued upon admission jd3 20:57 Follow up: Response: No adverse reaction; IV Status: Completed infusion jd3 19:50 Drug: Lopressor 100 mg Route: PO; jd3 20:08 Follow up: Response: No adverse reaction jd3 19:50 Drug: Eliquis 5 mg Route: PO; jd3 20:08 Follow up: Response: No adverse reaction jd3 Disposition: 04/26/18 18:50 Hospitalization ordered by Brenda Son for Inpatient Admission. Preliminary diagnosis are Chronic obstructive pulmonary disease with (acute) exacerbation, Hypoxemia. - Bed requested for Telemetry/MedSurg (Inpatient). - Status is Inpatient Admission. jd3 - Condition is Fair. - Problem is new. - Symptoms have improved. UTI on Admission? No Signatures: Dispatcher [employer] EDMS Shaila Yan RN RN mw Anderson, Corey, MD MD cha Joaquin, Henry RN NIK Augustin Gtuhrie RN RN jd3 Corrections: (The following items were deleted from the chart) 19:49 18:50 Hospitalization Ordered by Brenda Son MD for Inpatient Admission. Preliminary diagnosis is Chronic obstructive pulmonary disease with (acute) exacerbation; Hypoxemia. Bed requested for Telemetry/MedSurg (Inpatient). Status is Inpatient Admission. Condition is Fair. Problem is new. Symptoms have improved. UTI on Admission? No. joseline 21:35 19:49 04/26/2018 18:50 Hospitalization Ordered by Brenda Son MD for Inpatient jd3 Admission. Preliminary diagnosis is Chronic obstructive pulmonary disease with (acute) exacerbation; Hypoxemia. Bed requested for Telemetry/MedSurg (Inpatient). Status is Inpatient Admission. Condition is Fair. Problem is new. Symptoms have improved. UTI on Admission? No. mw
--- NOTE | 2018-04-26 18:51 | ER ---
Nurse's Notes [facility] Name: Angelo Narvaez Age: 62 yrs Sex: Male : 1955 Arrival Date: 04/26/2018 Time: 17:43 Bed 6 Private MD: Danial Wilkins Diagnosis: Chronic obstructive pulmonary disease with (acute) exacerbation;Hypoxemia Presentation: 04/26 17:48 Presenting complaint: EMS states: been having difficulty breathing for -5 weeks now but hj today is worse, uses O2 at 2L at home, still satting at 82%; did get Albuterol tx at home this AM; on scene pt, received a round of Albuterol/ Atrovent tx, O2 sat up to 99%; BP- 198/112; HR- 126;. Transition of care: patient was not received from another setting of care. Onset of symptoms was April 26, 2018. Risk Assessment: Do you want to hurt yourself or someone else? Patient reports no desire to harm self or others. Initial Sepsis Screen: Does the patient meet any 2 criteria? RR > 20 per min. HR > 90 bpm. Yes Does the patient have a suspected source of infection? No. Patient's initial sepsis screen is negative. Care prior to arrival: None. 17:48 Method Of Arrival: EMS: [facility] 17:48 Acuity: STEPHIE 2 hj Triage Assessment: 17:54 General: Appears in no apparent distress. uncomfortable, Behavior is calm, cooperative, hj appropriate for age. Pain: Complains of pain in chest Respiratory: Reports shortness of breath labored breathing Onset: The symptoms/episode began/occurred 4-5 weeks ago, the patient has moderate shortness of breath. Historical: - Allergies: 17:52 No Known Allergies; hj - PMHx: 17:52 HTN; COPD; A fib; hj - PSHx: 17:52 Unable to obtain; hj - Immunization history:: Adult Immunizations unknown. - Social history:: Smoking status: Patient/guardian denies using tobacco, Patient/guardian denies using alcohol. - Ebola Screening: : Patient negative for fever greater than or equal to 101.5 degrees Fahrenheit, and additional compatible Ebola Virus Disease symptoms Patient denies exposure to infectious person Patient denies travel to an Ebola-affected area in the 21 days before illness onset. - Family history:: not pertinent. Screenin:53 Abuse screen: Denies threats or abuse. Denies injuries from another. Nutritional hj screening: No deficits noted. Tuberculosis screening: No symptoms or risk factors identified. Fall Risk None identified. Assessment: 17:53 Respiratory: Airway is patent Respiratory effort is labored, Respiratory pattern is hj tachypnea 17:54 Cardiovascular: Rhythm is sinus tachycardia. hj 19:10 Reassessment: Patient appears in no apparent distress at this time. No changes from jd3 previously documented assessment. Patient and/or family updated on plan of care and expected duration. Pain level reassessed. Patient is alert, oriented x 3, equal unlabored respirations, skin warm/dry/pink. awaiting room assignment and orders for pt admission. Patient states feeling better. Cardiovascular: Capillary refill < 3 seconds Patient's skin is warm and dry. Rhythm is sinus tachycardia. Respiratory: Airway is patent Respiratory effort is even, labored, Respiratory pattern is tachypnea Breath sounds with wheezes bilaterally. 20:29 Reassessment: Patient appears in no apparent distress at this time. Patient and/or jd3 family updated on plan of care and expected duration. Pain level reassessed. Patient is alert, oriented x 3, equal unlabored respirations, skin warm/dry/pink. pt reported understanding of discharge instructions. Patient states feeling better. 21:34 Reassessment: Patient appears in no apparent distress at this time. No changes from jd3 previously documented assessment. Patient and/or family updated on plan of care and expected duration. Pain level reassessed. Patient is alert, oriented x 3, equal unlabored respirations, skin warm/dry/pink. Vital Signs: 17:52 BP 195 / 100; Pulse 130; Resp 26; Pulse Ox 75% on R/A; hj 17:52 Pulse Ox 100% on Nebulizer Mask; hj 18:44 BP 189 / 98; Pulse 125; Resp 24; Temp 99.7(O); Pulse Ox 96% on Nebulizer Mask; Weight hj 65.77 kg; Height 5 ft. 5 in. (165.10 cm); 19:32 BP 139 / 85; Pulse 132; Resp 21 S; Pulse Ox 92% on 2 lpm NC; Pain 0/10; jd3 20:28 BP 121 / 69; Pulse 111; Resp 22 S; Pulse Ox 93% on 2 lpm NC; Pain 0/10; jd3 21:34 BP 134 / 87; Pulse 109; Resp 22; Pulse Ox 95% on 2 lpm NC; Pain 0/10; jd3 18:44 Body Mass Index 24.13 (65.77 kg, 165.10 cm) hj ED Course: 17:43 Patient arrived in ED. mr 17:43 Danial Wilkins MD is Private Physician. mr 17:48 Michi Grey, NIK is Primary Nurse. hj 17:51 Triage completed. hj 17:53 Arm band placed on right wrist. hj 17:54 Patient has correct armband on for positive identification. Placed in gown. Bed in low hj position. Call light in reach. Side rails up X2. 17:59 Osei Narvaez MD is Attending Physician. joseline 18:29 X-ray completed. Portable x-ray completed in exam room. Patient tolerated procedure kp1 well. 18:31 XRAY Chest (1 view) In Process Unspecified. EDMS 18:48 Brenda Son MD is Hospitalizing Provider. joseline 20:04 No provider procedures requiring assistance completed. jd3 20:05 IV is patent, with fluids infusing freely, with good blood return, [address] jd3 per day shift. Patient admitted, IV remains in place. Administered Medications: 18:10 Drug: NS 0.9% 500 ml Route: IV; Rate: bolus; Site: left forearm; hj 19:21 Follow up: Response: No adverse reaction; IV Status: Completed infusion; IV Intake: jd3 500ml 18:10 Drug: SOLU-Medrol 125 mg Route: IVP; Site: left forearm; hj 19:07 Follow up: Response: No adverse reaction hj 18:10 Drug: Albuterol - atroVENT (3:1) (2.5 mg - 0.5 mg) 3 ml Route: Nebulizer; hj 19:06 Follow up: Response: No adverse reaction hj 19:22 Follow up: Response: No adverse reaction jd3 18:10 Drug: Pepcid 20 mg Route: IVP; Site: left forearm; hj 19:06 Follow up: Response: No adverse reaction 18:32 Drug: Cefepime 1 grams Route: IVPB; Rate: 200 ml/hr; Infused Over: 30 mins; Site: left hj forearm; 19:21 Follow up: Response: No adverse reaction; IV Status: Completed infusion jd3 19:20 Drug: vancoMYCIN 1 grams Route: IVPB; Infused Over: 2 hrs; Site: left forearm; jd3 20:08 Follow up: Response: No adverse reaction; IV Status: Infusion continued upon admission jd3 20:57 Follow up: Response: No adverse reaction; IV Status: Completed infusion jd3 19:50 Drug: Lopressor 100 mg Route: PO; jd3 20:08 Follow up: Response: No adverse reaction jd3 19:50 Drug: Eliquis 5 mg Route: PO; jd3 20:08 Follow up: Response: No adverse reaction jd3 Intake: 19:21 IV: 500ml; Total: 500ml. jd3 Outcome: 18:50 Decision to Hospitalize by Provider. joseline 20:06 Admitted to Med/surg accompanied by rissa, via wheelchair, room 408, with chart, Report jd3 called to Laurence ZARAGOZA 20:06 Condition: stable 20:06 Instructed on the need for admit, Demonstrated understanding of instructions. 21:35 Patient left the ED. jd3 Signatures: Dispatcher [employer] EDNY Osei Narvaez MD MD cha Rivera, Maria mr Michi Grey, RN RN Lisette Navarro kp1 Augustin Guthrie RN RN jd3 Corrections: (The following items were deleted from the chart) 19:35 19:33 Respiratory: Airway is patent Respiratory effort is even, labored, Respiratory jd3 pattern is tachypnea jd3 19:36 19:33 Reassessment: Patient appears in no apparent distress at this time. No changes jd3 from previously documented assessment. Patient and/or family updated on plan of care and expected duration. Pain level reassessed. Patient is alert, oriented x 3, equal unlabored respirations, skin warm/dry/pink. awaiting room assignment and orders for pt admission. Patient states feeling better. jd3 19:36 19:33 Cardiovascular: Capillary refill < 3 seconds Patient's skin is warm and dry. jd3 Rhythm is sinus tachycardia jd3 19:36 19:33 Respiratory: Airway is patent Respiratory effort is even, labored, Respiratory jd3 pattern is tachypnea jd3 19:36 19:33 Respiratory: Airway is patent Respiratory effort is even, labored, Respiratory jd3 pattern is tachypnea Breath sounds with wheezes bilaterally. jd3
[2018-04-26] MEDS ORDERED: METOPROLOL TAR 50 MG TAB ONE (19:30)
--- NOTE | 2018-04-26 19:34 | RAD REPORT ---
EXAM DESCRIPTION: RAD - Chest Single View - 04/26/2018 6:34 pm CLINICAL HISTORY: Difficulty breathing, shortness of breath COMPARISON: April 06 TECHNIQUE: AP portable chest image was obtained 1827 hour . FINDINGS: Patient has a baseline fibrotic lung pattern accentuated by shallow inspiration. No mass o r consolidations seen. Minimal right-sided interstitial edema or infiltrate could be masked. Heart an d vasculature are normal. Left costophrenic angle blunting is stable. Left pleural fluid has diminish ed since April 06. No gross bony abnormality seen. No acute aortic findings suspected. IMPRESSION: Chronic interstitial lung disease accentuated by shallow inspiration. Due to the shallow inspiration, early interstitial edema or infiltrate on the right cannot be exclude d. No mass, consolidation or significant failure.
[2018-04-26] MEDS ORDERED: APIXABAN 5 MG TABLET ONE (19:35)
[2018-04-26] MEDS ORDERED: ACETAMINOPHEN 500 MG TAB PO PRN (19:59)
[2018-04-26] MEDS ORDERED: GUAIFENESIN/CODEINE 5ML UCUP PO PRN (19:59)
[2018-04-26] MEDS ORDERED: MORPHINE 2 MG/ML SYR IV PRN (19:59)
[2018-04-26] MEDS ORDERED: ONDANSETRON 4 MG/2 ML VIAL IV PRN (19:59)
[2018-04-26] MEDS: NA CHLORIDE 0.9% 1,000 ML IV SCH ×2 (20:00→22:46)
[2018-04-26 20:03] LABS: Anisocytosis 1+; Blood Morphology Comment NOTED (NOT SEEN); Platelet Estimate ADEQ; Urine White Blood Cell Casts OK
[2018-04-26] MEDS: IPRATROPIUM BROM 0.5MG/2.5ML NEB SCH (20:10)
[2018-04-26] MEDS: ALBUTEROL 2.5 MG/3 ML NEB SOL NEB SCH (20:10)
[2018-04-26] MEDS ORDERED: AZITHROMYCIN IV 500 MG in NA CHLORIDE 0.9% 250 ML IVPB SCH (21:00)
[2018-04-26] MEDS ORDERED: AZITHROMYCIN 500 MG/250 ML BAG ONE (22:37)
[2018-04-27] MEDS: METHYLPREDNISOLONE 125 MG INJ IV SCH ×4 (00:19→18:43)
[2018-04-27] MEDS: ALBUTEROL 2.5 MG/3 ML NEB SOL NEB SCH ×4 (01:01→20:00)
[2018-04-27] MEDS: IPRATROPIUM BROM 0.5MG/2.5ML NEB SCH ×4 (01:01→19:52)
[2018-04-27 05:02] LABS: Absolute Lymphocytes (CBC) 0.2 K/uL (0.7-4.9); Absolute Monocytes 0.3 K/uL (0.1-1.3); Absolute Neutrophil 15.4 K/uL (1.8-8.0); Basophils % 0.1 % (0-1.3); Hematocrit 32.6 % (39.6-49.0); Lymphocytes % 1.1 % (15.3-44.8); MCH 27.4 pg (27.0-35.0); MCV 85.4 fL (80-100); Monocytes % 2.1 % (3.3-12.3); RBC Red Blood Cell Count 3.82 M/uL (4.33-5.43)
[2018-04-27 05:15] LABS: Albumin 2.8 g/dL (3.4-5.0); Bilirubin Total 0.3 mg/dL (0.2-1.0); Potassium 4.2 mmol/L (3.5-5.1)
--- NOTE | 2018-04-27 06:01 | P.HP ---
Certification for Inpatient Patient admitted to: Inpatient With expected LOS: >2 Midnights Patient will require the following post-hospital care: None Practitioner: I am a practitioner with admitting privileges, knowledge of patient current condition, hospital course, and medical plan of care. Services: Services provided to patient in accordance with Admission requirements found in Title 42 Section 412.3 of the Code of Federal Regulations Patient History Date of Service: 04/26/18 Reason for admission: Respiratory distress History of Present Illness: Patient is a 62-year-old gentleman who came to the hospital with shortness of breath. Patient has been having difficulty breathing for last 24-48 hr. Patient's respiratory distress worsened and he came into the hospital for further evaluation. Patient has history of lung cancer with resection of his left upper lobe in resection of 20+ lymph nodes. He was recently found to have a nodule in the right lower lung field which she states is close to the heart order. There is concern that this could be malignancy as well. He is scheduled for a PET scan this week. 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 He states that he was very active yesterday including multiple stops had different stores. The he also got to him. When he got out of his car when he were arrived home he was short of breath. He checked his blood pressure and his blood pressure was 180/100. He came into the hospital for further evaluation by EMS. In the emergency room, his blood pressure was 190/100 with a heart rate of 130s. His saturations were 80% on room air but went up to 93% on 2 L. Decision was made to admit to the hospital for further evaluation. Allergies No Known Allergies Allergy (Verified 04/26/18 21:47) Home Medications: Acetaminophen [Pain Reliever] 500 mg PO PRN PRN 04/26/18 Albuterol Sulfate [Proair Hfa] 2 puff IH Q4HP PRN 04/26/18 Aspirin [Adult Aspirin] 1 tab PO DAILY 04/26/18 Cholecalciferol (Vitamin D3) [Vitamin D3] 1 cap PO DAILY 04/26/18 Folic Acid 1 tab PO DAILY 04/26/18 Gabapentin [Neurontin*] 300 mg PO BID 04/26/18 Magnesium Oxide [Magnesium] 250 mg PO DAILY 04/26/18 Metoprolol Tartrate [Lopressor] 100 mg PO BID 04/26/18 Multivitamin [One Daily Multivitamin] 1 tab PO DAILY 04/26/18 Perforomist 20 mcg NEB BID 04/26/18 Rivaroxaban [Xarelto*] 1 tab PO DAILY 04/26/18 Simvastatin 20 mg PO BEDTIME 04/26/18 Spironolact/Hydrochlorothiazid [Spironolactone-Hctz 25-25 Tab] 1 tab PO DAILY predniSONE [Deltasone*] 10 mg PO BID 04/26/18 Albuterol Ipratropium 2.5 mg NEB Q6HP PRN 04/27/18 - Past Medical/Surgical History Has patient received pneumonia vaccine in the past: No Diabetic: No -: HTN -: COPD -: Atrial fibrillation -: Lung cancer(does not know which type) -: left upper lung lobectomy with lymph node resection -: appendectomy - Family History Father Family History: Reviewed- Non-Contributory - Social History Smoking Status: Former smoker Alcohol use: Yes CD- Drugs: No Place of Residence: Home Review of Systems 10-point ROS is otherwise unremarkable Physical Examination - Vital Signs Temperature: 97.2 F Blood Pressure: 125/60 Pulse: 89 Respirations: 20 Pulse Ox (%): 93 - Physical Exam General: Alert, In no apparent distress, Oriented x3 HEENT: Atraumatic, PERRLA, Mucous membr. moist/pink, EOMI, Sclerae nonicteric Neck: Supple, 2+ carotid pulse no bruit, No LAD, Without JVD or thyroid abnormality Respiratory: Diminished, Crackles/rales, Expiratory wheezes Cardiovascular: Regular rate/rhythm, Normal S1 S2, Systolic murmur Gastrointestinal: Normal bowel sounds, Soft and benign, Non-distended, No tenderness Musculoskeletal: No clubbing, No tenderness, Swelling (Minimal) Integumentary: No rashes Neurological: Normal gait, Normal speech, Normal strength at 5/5 x4 extr, Normal tone, Sensation intact, Cranial nerves 3-12 intact, Normal affect Lymphatics: No axilla or inguinal lymphadenopathy - Studies Laboratory Data (last 24 hrs) 04/26/18 18:20: PT 23.7 H, INR 1.99, APTT 33.0 04/26/18 18:20: WBC 14.4 H, Hgb 12.5 L, Hct 37.8 L, Plt Count 205 04/26/18 18:20: Sodium 134 L, Potassium 4.5, BUN 27 H, Creatinine 1.60 H, Glucose 90, Magnesium 2.0, Total Bilirubin 0.4, AST 26, ALT 31, Alkaline Phosphatase 62 Assessment & Plan - Problems (Diagnosis) (1) Respiratory distress Current Visit: Yes Status: Acute (2) Hypertension, malignant Current Visit: Yes Status: Acute (3) Tachyarrhythmia Current Visit: Yes Status: Acute (4) COPD exacerbation Current Visit: Yes Status: Acute (5) Flash pulmonary edema Current Visit: Yes Status: Acute (6) History of lung cancer Current Visit: Yes Status: Acute - Plan 1. Echocardiogram & BNP results pending 2. Continue home cardiac meds 3. Treat for COPD with nebs, steroids, and antibiotics 4. Pulmonary consultation to assist and adjusting COPD treatment 5. Strict blood pressure control 6. Monitor I's and O's 7. Repeat CXR 8. Daily weights 9. GI and DVT prophylaxis Discharge Plan: Home Plan to discharge in: Greater than 2 days - Advance Directives Does patient have a Living Will: No Does patient have a Durable POA for Healthcare: No - Code Status/Comfort Care Code Status Assessed: Yes Code Status: Full Code Critical Care: No Time Spent Managing PTS Care (In Minutes): 50
[2018-04-27] MEDS ORDERED: ACETAMINOPHEN 500 MG TAB PO PRN (06:03)
--- NOTE | 2018-04-27 06:52 | EKG ---
Test Date: 2018-04-26 Test Time: 18:09:05 Mobility Manager: DARIELA MEASUREMENT RESULTS: Intervals: Rate: 128 PA: 128 QRSD: 120 QT: 308 QTc: 449 [place]: P: 60 PA: 128 QRS: 203 T: 49 INTERPRETIVE STATEMENTS: Sinus tachycardia Right bundle branch block Septal infarct, age undetermined Abnormal ECG Compared to ECG 12/12/2016 17:08:58 Sinus bradycardia no longer present Myocardial infarct finding still present Electronically Signed On 04-27-18 06:52:14 CDT by Prem Thorne
[2018-04-27] MEDS: ARFORMOTEROL TARTRATE 15 MCG/2 ML VIAL.NEB IH SCH ×2 (07:31→19:52)
--- NOTE | 2018-04-27 07:53 | RAD REPORT ---
EXAM DESCRIPTION: Dorothy Single View04/27/2018 6:44 am CLINICAL HISTORY: Chest pain COMPARISON: April 26 FINDINGS: Postsurgical changes involve the left lung. The right lung is hyperaerated. Lungs appear clear of acute infiltrate. Left pleural thickening is present. The heart is normal size IMPRESSION: No acute abnormalities displayed
[2018-04-27] MEDS ORDERED: PNEUMOCOCCAL VACCINE 0.5 ML IMVAC ONE (08:00)
[2018-04-27] MEDS ORDERED: CEFTRIAXONE 1 GM/NS 50 ML 1 GM/50 ML BAG IV SCH (09:00)
[2018-04-27] MEDS ORDERED: HOME MED 1 EA UNK (Spironolact/Hydrochlorothiazid [Spironolactone-Hctz 25-25 Tab] 1 TAB) PO SCH (09:00)
[2018-04-27] MEDS ORDERED: FUROSEMIDE 40 MG/4 ML VIAL IV ONE (09:02)
--- NOTE | 2018-04-27 09:45 | P.PN ---
Subjective Date of Service: 04/27/18 Primary Care Provider: Dr. Wilkins Chief Complaint: Respiratory distress Subjective: Other (Patient feeling better. Shortness of breath improved. Swelling to the lower extremity improved.) Physical Examination - Vital Signs Temperature: 98.0 F Blood Pressure: 140/71 Pulse: 101 Respirations: 20 Pulse Ox (%): 98 - Physical Exam General: Alert, In no apparent distress, Oriented x3, Cooperative HEENT: Atraumatic Neck: Supple Respiratory: Expiratory wheezes (Bilateral) Cardiovascular: Normal pulses, Regular rate/rhythm Gastrointestinal: Normal bowel sounds, Soft and benign, Non-distended, No tenderness, No masses, No rebound, No guarding Musculoskeletal: No erythema, No tenderness, No warmth Integumentary: No erythema, No warmth, No cyanosis, Tenderness/swelling ( Nonpitting edema to the feet bilateral) Neurological: Normal speech, Normal strength at 5/5 x4 extr, Normal tone, Normal affect Lymphatics: No axilla or inguinal lymphadenopathy - Studies Laboratory Data (last 24 hrs) 04/26/18 18:20: PT 23.7 H, INR 1.99, APTT 33.0 04/26/18 18:20: WBC 14.4 H, Hgb 12.5 L, Hct 37.8 L, Plt Count 205 04/26/18 18:20: Sodium 134 L, Potassium 4.5, BUN 27 H, Creatinine 1.60 H, Glucose 90, Magnesium 2.0, Total Bilirubin 0.4, AST 26, ALT 31, Alkaline Phosphatase 62 Medications List Reviewed: Yes Assessment & Plan - Problems (Diagnosis) (1) Hypertension Current Visit: Yes Status: Chronic Plan: Continue with medication. Will monitor and adjust appropriately. Qualifiers: Hypertension type: essential hypertension Qualified Code(s): I10 - Essential (primary) hypertension (2) Atrial fibrillation Current Visit: Yes Status: Chronic Plan: Overall stable. Will continue with medication. Patient on chronic anti coagulation therapy. Qualifiers: Atrial fibrillation type: chronic Qualified Code(s): I48.2 - Chronic atrial fibrillation (3) Chronic anticoagulation Current Visit: Yes Status: Chronic Plan: Continue with Xarelto. (4) Hyperlipidemia Current Visit: Yes Status: Chronic Plan: Continue with medication. Qualifiers: Hyperlipidemia type: unspecified Qualified Code(s): E78.5 - Hyperlipidemia , unspecified (5) Chronic renal disease Current Visit: Yes Status: Acute Plan: Overall stable. Will monitor closely. Qualifiers: Chronic kidney disease stage: stage 3 (moderate) Qualified Code(s): N18.3 - Chronic kidney disease, stage 3 (moderate) (6) Oxygen dependent Current Visit: Yes Status: Chronic Plan: Continue with oxygen. Will try to wean off. Patient uses home oxygen at home. (7) History of lung surgery Current Visit: Yes Status: Chronic Plan: Patient reports a history of lobectomy with removal of lymph nodes. (8) COPD exacerbation Onset Date: 04/27/18 Current Visit: Yes Status: Acute Plan: Continue with COPD treatment. Pulmonology consulted. Patient oxygen- dependent. Patient improved. Anticipate discharge in the next 1-[address] Wilkins will take over tomorrow. (9) History of lung cancer Onset Date: 04/27/18 Current Visit: Yes Status: Chronic Plan: This is being followed by oncology and pulmonology. (10) CHF (congestive heart failure) Current Visit: Yes Status: Suspected Plan: Suspect CHF. Patient on diuretic therapy. Will check echocardiogram. Troponin slightly elevated. Will consult cardiology to further evaluate. Qualifiers: Heart failure type: diastolic Heart failure chronicity: acute on chronic Qualified Code(s): I50.33 - Acute on chronic diastolic (congestive) heart failure (11) Elevated troponin Current Visit: Yes Status: Acute Plan: Will consult cardiology to further assess. Patient with history of hypertension , atrial fibrillation on chronic anti coagulation therapy. Suspect CHF. Echocardiogram pending. Discharge Plan: Home Plan to discharge in: 48 Hours - Code Status/Comfort Care Code Status Assessed: Yes Time Spent Managing Pts Care (In Minutes): 55
[2018-04-27] MEDS: CEFTRIAXONE/SWI 1gm 1 GM/10 ML SYR IV SCH (10:33)
[2018-04-27] MEDS: VITAMIN D 1000 UNIT TAB PO SCH (10:36)
[2018-04-27] MEDS: METOPROLOL TAR 50 MG TAB PO SCH ×2 (10:36→21:31)
[2018-04-27] MEDS: FOLIC ACID 1 MG TABLET PO SCH (10:36)
[2018-04-27] MEDS: ASPIRIN EC 81 MG TAB PO SCH (10:37)
[2018-04-27] MEDS: GABAPENTIN 300 MG CAP PO SCH ×2 (10:37→21:32)
[2018-04-27] MEDS: MAGNESIUM OXIDE 400 MG TAB PO SCH (10:37)
[2018-04-27] MEDS: RIVAROXABAN 15 MG TABLET PO SCH (10:37)
[2018-04-27] MEDS: SPIRONOLACTONE 25 MG TABLET PO SCH (10:38)
[2018-04-27] MEDS: MULTIVITAMIN TAB PO SCH (10:38)
[2018-04-27] MEDS: hydroCHLOROthiazide 25 MG TAB PO SCH (10:39)
--- NOTE | 2018-04-27 12:14 | ECHO ---
HEIGHT: 5 ft 5 in WEIGHT: 138 lb 9.6 oz DATE OF STUDY: 04/27/[address]: Brenda Son MD 2-DIMENSIONAL: YES M.MODE: YES DOPPLER: YES COLOR FLOW: YES TDS: YES PORTABLE: DEFINITY: BUBBLE STUDY: DIAGNOSIS: CONGESTIVE HEART FAILURE/ PULMONARY EDEMA CARDIAC HISTORY: CATHERIZATION: NO SURGERY: NO PROSTHETIC VALVE: NO PACEMAKER: NO MEASUREMENTS (cm) DIASTOLIC (NORMALS) SYSTOLIC (NORMALS) IVSd 1.0 (0.6-1.2) LA Diam 3.8 (1.9-4.0) LVEF 72% LVIDd 4.7 (3.5-5.7) LVIDs 2.8 (2.0-3.5) %FS 41% LVPWd 1.1 (0.6-1.2) Ao Diam 3.5 (2.0-3.7) 2 DIMENSIONAL ASSESSMENT: RIGHT ATRIUM: NORMAL LEFT ATRIUM: NORMAL RIGHT VENTRICLE: NORMAL LEFT VENTRICLE: NORMAL TRICUSPID VALVE: NORMAL MITRAL VALVE: NORMAL PULMONIC VALVE: NORMAL AORTIC VALVE: NORMAL PERICARDIAL EFFUSION: NONE AORTIC ROOT: NORMAL LEFT VENTRICULAR WALL MOTION: NORMAL DOPPLER/COLOR FLOW: MILD TRICUSPID REGURGITATION. NORMAL RIGHT VENTRICULAR SYSTOLIC PRESSURE. IMPAIRED LEFT VENTRICULAR RELAXATION. COMMENTS: NORMAL 2-DIMENSIONAL ECHOCARDIOGRAM. MILD TRICUSPID REGURGITATION. IMPAIRED LEFT VENTRICULAR RELAXATION. TECHNOLOGIST: LACIE SKELTON
--- NOTE | 2018-04-27 12:47 | P.CNS ---
Date of Consult: 04/27/18 Reason for Consult: COPD exacerbation Primary Care Provider: Dr. Wilkins Chief Complaint: Respiratory distress History of Present Illness: Patient is a 62 years of age with a history of COPD admitted with worsening dyspnea he has become progressively worse since November compliant with his medication is coughing up some productive phlegm became worse about a week ago and was admitted with exacerbation of COPD patient is compliant with all his medication patient has a lesion in the right lower lobe posterior gutter adjacent to the spine Allergies No Known Allergies Allergy (Verified 04/26/18 21:47) Home Medications: Acetaminophen [Pain Reliever] 500 mg PO PRN PRN 04/26/18 Albuterol Sulfate [Proair Hfa] 2 puff IH Q4HP PRN 04/26/18 Aspirin [Adult Aspirin] 1 tab PO DAILY 04/26/18 Cholecalciferol (Vitamin D3) [Vitamin D3] 1 cap PO DAILY 04/26/18 Folic Acid 1 tab PO DAILY 04/26/18 Gabapentin [Neurontin*] 300 mg PO BID 04/26/18 Magnesium Oxide [Magnesium] 250 mg PO DAILY 04/26/18 Metoprolol Tartrate [Lopressor] 100 mg PO BID 04/26/18 Multivitamin [One Daily Multivitamin] 1 tab PO DAILY 04/26/18 Perforomist 20 mcg NEB BID 04/26/18 Rivaroxaban [Xarelto*] 1 tab PO DAILY 04/26/18 Simvastatin 20 mg PO BEDTIME 04/26/18 Spironolact/Hydrochlorothiazid [Spironolactone-Hctz 25-25 Tab] 1 tab PO DAILY predniSONE [Deltasone*] 10 mg PO BID 04/26/18 Albuterol Ipratropium 2.5 mg NEB Q6HP PRN 04/27/18 - Past Medical/Surgical History Diabetic: No -: HTN -: COPD -: Atrial fibrillation -: Lung cancer(does not know which type) -: left upper lung lobectomy with lymph node resection -: appendectomy - Family History Father Family History: Reviewed- Non-Contributory - Social History Alcohol use: Yes CD- Drugs: No Place of Residence: Home Review of Systems General: Weakness Respiratory: Cough, Shortness of Breath Physical Examination Temp Pulse Resp BP Pulse Ox 98.0 F 101 H 20 140/71 98 04/27/18 09:45 04/27/18 10:48 04/27/18 09:45 04/27/18 10:48 04/27/18 09:45 General: Alert, Oriented x3 HEENT: Atraumatic Neck: Supple Respiratory: Expiratory wheezes Cardiovascular: No edema, Irregular heart rate/rhythm Gastrointestinal: Normal bowel sounds, Soft and benign Laboratory Data (last 24 hrs) 04/26/18 18:20: PT 23.7 H, INR 1.99, APTT 33.0 04/26/18 18:20: WBC 14.4 H, Hgb 12.5 L, Hct 37.8 L, Plt Count 205 04/26/18 18:20: Sodium 134 L, Potassium 4.5, BUN 27 H, Creatinine 1.60 H, Glucose 90, Magnesium 2.0, Total Bilirubin 0.4, AST 26, ALT 31, Alkaline Phosphatase 62 - Problems (1) COPD exacerbation Onset Date: 04/27/18 Current Visit: Yes Status: Acute Plan: Patient is 62 years of age admitted with worsening dyspnea as been progressive he is compliant with his medications echocardiogram possible diastolic dysfunction he is on spironolactone and hydrochlorothiazide renal function is worse creatinine 1.6 CT scan shows the right lower lobe posterior gutter adjacent to the spine PET scan is pending continue with bronchodilators steroids probably has underlying cor pulmonale patient is fully anti coagulated his INR is elevated patient i patient has history of AFib is currently normal sinus rhythm
[2018-04-27 13:00] LABS: Potassium 4.2 mmol/L (3.5-5.1)
[2018-04-27 13:01] LABS: NT PRO-BNP 6350 pg/mL (<125)
[2018-04-27 13:17] LABS: Urine Appearance CLEAR; Urine Bilirubin NEGATIVE (NEG); Urine Blood NEGATIVE (NEG); Urine Color YELLOW; Urine Glucose NEGATIVE (NEG); Urine Protein NEGATIVE (NEG); Urine Urobilinogen 0.2 mg/dL (0.2-1.0)
[2018-04-27 13:28] LABS: Urine Microscopic Reflex NO UMIC
[2018-04-27] MEDS: ATORVASTATIN 10 MG TAB PO SCH (21:32)
--- NOTE | 2018-04-27 21:43 | CON ---
Identification: A 62-year-old man. Reason For Consultation: Abnormal troponin. History Of Present Illness: Mr. Narvaez came to the hospital with a dyspnea. He does have spells o f chest pain and pressure and tightness. He notes his blood pressure goes up and he also has a cough that has been productive since he has been here in the hospital. His chest x-ray does not show pneu monia or any obvious cause of his worsening dyspnea. He is not in pulmonary edema, but he has some a bnormal tests that are of concern and may indicate heart disease. His B-natriuretic peptide level is very elevated even though his echocardiogram is normal. His EKG shows questionable septal CO, could be due to a pulmonary disease instead of an actual CO. The patient has a history of lung cancer. I t is probably non-small cell since he has had a left upper lobe resection. There is now a spot in th e right lung between the heart and the dome of the liver that will soon be evaluated with a PET scans , its most likely etiology is lung cancer. He has never had a myocardial infarction, stroke, or vasc ular disease. Medications: Outpatient medications have been prednisone, spironolactone, hydrochlorothiazide, simva statin, Xarelto, gabapentin, folic acid, Perforomist, metoprolol 100 b.i.d., aspirin, multivitamin, v itamin D3, magnesium oxide, puffers and albuterol nebulizer treatments. Allergies: HE HAS NO ALLERGIES. Social History: He was a cigarette smoker until January 2018. He had resection of his cancer in 2016. He has had radiation and chemotherapy in the past 10 months since the resection. Physical Examination: General: He appears to be older than his stated age of 62, 5 feet 5 inches, 138 pounds. Not in any respiratory distress. HEENT: Normal. Lungs: Reveal expiratory wheezes throughout, but it is more prominent in the left lower lung field. Heart: Reveals regular rate and rhythm. No significant murmur. Abdomen: Soft. Extremities: No edema. Distal pulses diminished, but palpable. Laboratory Data: His EKG shows right bundle, possible pulmonary disease pattern versus septal CO. H is echocardiogram is normal. His troponins are 0.36, 0.36, and 0.06. Impression: 1.My impression that the patient may well have coronary heart disease causing his worsening dyspnea. I think if he gets short of breath, we should give him nitroglycerin. 2.We will do a stress test and see if he is in need of having a coronary intervention. We might wan t to try and treat his coronary artery disease using medical therapy alone if his PET scan shows recu rrent metastatic lung cancer. JEFF/RYAN Voice ID: [id number] Report ID: [id number]
[2018-04-28] MEDS: METHYLPREDNISOLONE 125 MG INJ IV SCH ×4 (00:20→18:40)
[2018-04-28] MEDS: ALBUTEROL 2.5 MG/3 ML NEB SOL NEB SCH ×4 (01:35→20:15)
[2018-04-28] MEDS: IPRATROPIUM BROM 0.5MG/2.5ML NEB SCH ×4 (01:35→20:15)
[2018-04-28 05:24] LABS: Absolute Lymphocytes (CBC) 0.2 K/uL (0.7-4.9); Absolute Monocytes 0.3 K/uL (0.1-1.3); Absolute Neutrophil 13.1 K/uL (1.8-8.0); Hematocrit 30.2 % (39.6-49.0); Lymphocytes % 1.2 % (15.3-44.8); MCH 27.7 pg (27.0-35.0); MCV 85.9 fL (80-100); Monocytes % 2.3 % (3.3-12.3); RBC Red Blood Cell Count 3.52 M/uL (4.33-5.43)
[2018-04-28 05:38] LABS: Magnesium 2.3 mg/dL (1.8-2.4); Potassium 4.2 mmol/L (3.5-5.1)
[2018-04-28] MEDS: ARFORMOTEROL TARTRATE 15 MCG/2 ML VIAL.NEB IH SCH ×2 (07:41→20:15)
[2018-04-28] MEDS ORDERED: REGADENOSON 0.4 MG/5 ML SYR IV ONE (07:55)
[2018-04-28] MEDS ORDERED: AZITHROMYCIN 250 MG TAB PO SCH (09:00)
--- NOTE | 2018-04-28 11:05 | PN ---
Date of Progress Note: 04/28/2018 The patient admitted on 04/26/[address] Kuo' service for COPD, elevated troponin, atrial fibrill ation, hypertension. Has a history of dyslipidemia. Has a history of left upper lobe lobectomy seco ndary to lung cancer in the past. Echocardiogram which was done yesterday showed decreased left vent ricular compliance with normal ejection fraction. Lexiscan is pending for today. No telemetry issue and no new complaints. We will see what the Lexiscan shows prior to making final decisions. ENRIQUE/RYAN Voice ID: [id number] Report ID: [id number]
[2018-04-28] MEDS: SPIRONOLACTONE 25 MG TABLET PO SCH (11:18)
[2018-04-28] MEDS: RIVAROXABAN 15 MG TABLET PO SCH (11:19)
[2018-04-28] MEDS: GABAPENTIN 300 MG CAP PO SCH ×2 (11:19→21:10)
[2018-04-28] MEDS: hydroCHLOROthiazide 25 MG TAB PO SCH (11:19)
[2018-04-28] MEDS: MAGNESIUM OXIDE 400 MG TAB PO SCH (11:19)
[2018-04-28] MEDS: MULTIVITAMIN TAB PO SCH (11:19)
[2018-04-28] MEDS: VITAMIN D 1000 UNIT TAB PO SCH (11:19)
[2018-04-28] MEDS: ASPIRIN EC 81 MG TAB PO SCH (11:19)
[2018-04-28] MEDS: FOLIC ACID 1 MG TABLET PO SCH (11:20)
[2018-04-28] MEDS: CEFTRIAXONE/SWI 1gm 1 GM/10 ML SYR IV SCH (11:20)
[2018-04-28] MEDS: METOPROLOL TAR 50 MG TAB PO SCH ×2 (11:20→21:10)
--- NOTE | 2018-04-28 11:30 | RAD REPORT ---
EXAM DESCRIPTION: NM - Rest Stress Cardiac Imaging - 04/28/2018 11:22 am CLINICAL HISTORY: Chest pain COMPARISON: None. TECHNIQUE: The patient was administered 10.7 mCi of Tc 99m Sestamibi prior to resting SPECT imaging of the heart. The patient was then administered 30.7 mCi of Tc 99m Sestamibi following exercise or ph armacologic stress. Multiplanar SPECT images were reviewed. FINDINGS: The end diastolic volume is 74 ml, the end systolic volume is 19 ml, and the ejection frac tion is 74 %. No stress-induced ischemic changes are identifiable. There is a large fixed defect involving the infe rior wall from base to apex. This extends to incorporate a portion of the lateral wall. This is favo red to be scarring rather than only attenuation artifact. IMPRESSION: No stress-induced ischemia. Large fixed defect involving the entire inferior wall favored to be scarring rather than attenuation artifact. Ventricular volumes and ejection fraction are still well within normal limits even with a large infer ior wall abnormality.
--- NOTE | 2018-04-28 16:11 | TREADPHA ---
DX: SHORTNESS OF BREATH Date of Study: 04/28/2018 Ht: 5 5 Wt: 145 lb 1 oz Consulting Physician: TAMEKA MEDICATIONS: TYLENOL, PROVENTIL, ASPIRIN, LIPITOR, ATROVENT, LOPRESSOR, ZOFRAN, XARELTO HISTORY: 62 YEAR OLD MALE WITH COMPLAINTS OF SHORTNESS OF BREATH. MEDICAL HISTORY OF HYPERTENSION, COPD, ATRIAL FIBRILLATION, FORMER SMOKER AND OXYGEN DEPENDENT. PHYSICIAL EXAMINATION: RESTING B.P.: 154/81 RESTING H.R.: 95 RESTING EKG: SINUS RHYTHM, RIGHT BUNDLE BRANCH BLOCK. PROTOCOL: LEXISCAN EXERCISE TIME: 3:30 B.P. AT PEAK STRESS: 148/73 IMPRESSION: LEXISCAN INJECTED. CARDIOLITE INJECTED PERPROTOL. SEE NUCLEAR MEDICINE REPORT. NO SUPRAVENTRICULAR OR VENTRICULAR TACHYCARDIA NOTED. FREQUENT PREMATURE VENTRICULAR COMPLEXES AFTER INJECTEION OF LEXISCAN, NONE NOTED IN RECOVERY.
--- NOTE | 2018-04-28 16:51 | PN ---
Date of Progress Note: 04/28/2018 The patient states he does feels somewhat better today. He has had a stress test scheduled for later in the day and depending on the results of that, he was also scheduled for a PET scan on , c an be determined between whether or not his dyspneic episode was cardiac and/or pulmonary related. The patient has had a prior stress test for clearance for a lung biopsy a number of months ago outside this institution. HR/MODL Voice ID: [id number] Report ID: [id number]
[2018-04-28] MEDS: ATORVASTATIN 10 MG TAB PO SCH (21:10)
[2018-04-29] MEDS: METHYLPREDNISOLONE 125 MG INJ IV SCH ×3 (00:03→11:44)
[2018-04-29] MEDS: IPRATROPIUM BROM 0.5MG/2.5ML NEB SCH ×3 (01:12→13:03)
[2018-04-29] MEDS: ALBUTEROL 2.5 MG/3 ML NEB SOL NEB SCH ×3 (01:12→13:03)
[2018-04-29 04:39] LABS: Absolute Lymphocytes (CBC) 0.1 K/uL (0.7-4.9); Absolute Monocytes 0.3 K/uL (0.1-1.3); Absolute Neutrophil 9.5 K/uL (1.8-8.0); Hematocrit 30.1 % (39.6-49.0); Lymphocytes % 1.1 % (15.3-44.8); MCH 28.6 pg (27.0-35.0); MCV 85.6 fL (80-100); MPV 8.2 fL (7.6-11.3); Monocytes % 2.7 % (3.3-12.3); RBC Red Blood Cell Count 3.52 M/uL (4.33-5.43)
[2018-04-29 05:01] LABS: Magnesium 2.2 mg/dL (1.8-2.4); Potassium 3.9 mmol/L (3.5-5.1)
[2018-04-29] MEDS: ARFORMOTEROL TARTRATE 15 MCG/2 ML VIAL.NEB IH SCH (08:17)
[2018-04-29] MEDS: ASPIRIN EC 81 MG TAB PO SCH (09:56)
[2018-04-29] MEDS: VITAMIN D 1000 UNIT TAB PO SCH (09:56)
[2018-04-29] MEDS: CEFTRIAXONE/SWI 1gm 1 GM/10 ML SYR IV SCH (09:56)
[2018-04-29] MEDS: MULTIVITAMIN TAB PO SCH (09:56)
[2018-04-29] MEDS: GABAPENTIN 300 MG CAP PO SCH (09:57)
[2018-04-29] MEDS: RIVAROXABAN 15 MG TABLET PO SCH (09:57)
[2018-04-29] MEDS: FOLIC ACID 1 MG TABLET PO SCH (09:57)
[2018-04-29] MEDS: MAGNESIUM OXIDE 400 MG TAB PO SCH (09:57)
[2018-04-29] MEDS: hydroCHLOROthiazide 25 MG TAB PO SCH (09:57)
[2018-04-29] MEDS: METOPROLOL TAR 50 MG TAB PO SCH (09:58)
[2018-04-29] MEDS: SPIRONOLACTONE 25 MG TABLET PO SCH (09:58)
--- NOTE | 2018-04-29 16:07 | PN ---
Date of Progress Note: 04/29/2018 The patient continues to feel better. He is basically back at baseline. He feels well enough to be discharged to continue on his usual home medications with no significant changes, go back to his pred nisone 10 mg twice a day and his inhalers as well as his cardiac medicine. He is scheduled for a PET scan in the a.m. I feel his episode was mainly an exacerbation of COPD, perhaps aggravated by an in fectious process, but more than likely just an exacerbation as the patient states he was out running around without his oxygen. He was advised to use his oxygen on a more consistent basis. Follow up w ith Dr. Sawant next week and Oncology in a couple of weeks and me as necessary. It should be noted that his cardiac workup including Lexiscan was negative as far as acute changes are concern. HR/MODL Voice ID: [id number] Report ID: [id number]
--- NOTE | 2018-06-22 06:37 | DS ---
Date of Discharge: 04/29/2018 Hospital Course: The patient admitted to the hospital 04/26 when he presented to the emergency room with increasing shortness of breath. He felt that this was because he had been not using his oxygen when he was out and about. He states other than this, he cannot describe any other factors that woul d account for this exacerbation. He states it is similar to other exacerbation that he has had. He has a slight productive cough associated with it. The patient has also history of AFib, but this was not determined to be a part of a problem due to shortness of breath and chest discomfort. However, Cardiology was consulted and was decided to do a stress test which will make sure there was no cardia c factor. This in fact was negative. He had been scheduled for a PET scan as an outpatient basis to follow his oncological problem for his lung CA and by 04/29, he felt well enough to be discharged to follow up with Oncology. During his hospital stay, other than the fact that he has had slight eleva tion of troponin which precipitated the complete evaluation, his cardiac status was stable, and he carr d a normal workup. He was therefore discharged on his usual medication with advice to increase his o xygen usage, even if he felt he could handle at times without it, and followup Oncology, Pulmonology, and myself. Final Diagnoses: Acute exacerbation of chronic obstructive pulmonary disease, hypertension controlle d, atrial fibrillation, chronic lung cancer by history. HR/MODL Voice ID: [id number] Report ID: [id number]
== END 2018-04-29 15:53 | disposition home or self-care (01) | DRG 291 ==
LOC: ER 17:40 → ERHOLD 18:52 → 4TH 20:19
PROVIDERS: ADMIT Hospitalist; ATTEND Family Medicine
DX: I13.0 Hypertensive heart and chronic kidney disease with heart failure and stage 1 through stage 4 chronic kidney disease, or unspecified chronic kidney disease (principal); I50.33 Acute on chronic diastolic (congestive) heart failure; J44.1 Chronic obstructive pulmonary disease with (acute) exacerbation; Z79.01 Long term (current) use of anticoagulants; I48.2 Chronic atrial fibrillation; N18.3 Chronic kidney disease, stage 3 (moderate); R74.8 Abnormal levels of other serum enzymes; E78.5 Hyperlipidemia, unspecified; Z85.118 Personal history of other malignant neoplasm of bronchus and lung; Z99.81 Dependence on supplemental oxygen; Z90.2 Acquired absence of lung [part of]; Z79.82 Long term (current) use of aspirin; Z87.891 Personal history of nicotine dependence; Z92.21 Personal history of antineoplastic chemotherapy; Z92.3 Personal history of irradiation; R09.02 Hypoxemia
CPT/HCPCS: 36415; 71045; 78452; 80048; 80053; 80076; 81003; 82550; 82553; 82962; 83605; 83615; 83735; 83880; 84145; 84484; 85025; 85610; 85730; 87040; 87070; 87086; 87088; 87205; 93005; 93017; 93306; 94640; 96365; 96375; 99285; A9500; J0456; J0692; J0696; J2270; J2785; J2930; J3370; J7030; J7605

== ENCOUNTER 2018-09-19 09:46 | Inpatient (IN) | payer BC ==
--- OUTSIDE RECORDS SUMMARY | 2018-09-19 09:48 | XMS REPORT | Clinical Summary ---
:1955 Author Organization [facility] Address [address] [place] [address] Care Team Providers Name Role Phone Danial Wilkins MD Primary Care Provider Allergies No Known Allergies Medications Medication Sig Dispensed Refills Start Date End Date Status aspirin (ECOTRIN) 81 Take 81 mg by 0 Active MG enteric coated mouth daily. tablet multivitamin with Take 1 tablet by 0 Active minerals tablet mouth daily. tiotropium-olodaterol Take 2 0 Active (STIOLTO RESPIMAT) inhalations by 2.5-2.5 mcg/actuation mouth daily. inhalation solution adalimumab (HUMIRA) Inject 40 mg 0 Active 40 mg/0.8 mL under the skin injection once. HYDROcodone-acetamino Take 1 tablet by 0 Active phen (NORCO) 5-325 mg mouth every 6 per tablet (six) hours as needed for moderate pain. cyclobenzaprine Take 5 mg by 0 Active (FLEXERIL) 5 mg mouth 3 (three) tablet times a day as needed for muscle spasms. simvastatin (ZOCOR) Take 20 mg by 0 Active 20 MG tablet mouth nightly. folic acid (FOLVITE) Take 1 mg by 0 Active 1 MG tablet mouth daily. 3 DAILY methotrexate 2.5 MG Take 2.5 mg by 0 Active tablet mouth once a week. 7 PILLS WEEKLY albuterol (PROAIR Inhale 2 puffs 0 Active HFA,PROVENTIL every 6 (six) HFA,VENTOLIN HFA) 90 hours as needed mcg/actuation inhaler for wheezing. tadalafil (CIALIS) 20 Take 20 mg by 0 Active mg tablet mouth daily as needed. losartan (COZAAR) 50 TK 1 T PO QD 3 01/22/2017 Active MG tablet CHANTIX 1 mg tablet TK 1 T PO D 5 12/12/2016 Active CHANTIX STARTING TK 1 T PO D OR 3 12/11/2016 Active MONTH BOX 0.5 mg DIRECTED (11)- 1 mg (42) tablet amLODIPine (NORVASC) TK 1 T PO QD 1 02/21/2017 Active 10 mg tablet ondansetron ODT DISSOLVE 1 T ON 3 04/10/2017 Active (ZOFRAN-ODT) 4 MG TONGUE Q 4 TO 6 H disintegrating tablet PRF NV dexamethasone TK 1 T PO BID FOR 2 04/17/2017 Active (DECADRON) 4 MG 3 DAYS. BEGIN THE tablet DAY BEFORE EACH CHEMO TREATMENT metoprolol succinate 100 mg. 2 08/28/2017 Active XL (TOPROL-XL) 100 mg 24 hr tablet omeprazole (PriLOSEC) 20 mg. 3 08/22/2017 Active 20 MG capsule apixaban (ELIQUIS) Take 2 tablets (5 360 tablet 0 07/30/2017 2.5 mg tablet mg total) by 7 mouth 2 (two) times a day for 90 days. gabapentin Take 1 capsule 60 capsule 3 09/04/2017 (NEURONTIN) 300 mg (300 mg total) by 8 capsuleIndications: mouth 2 (two) Neuropathic pain times a day. Active Problems Patient Care Coordination Note Referring physician is Valery Bucio [address] [place] [id number] P: [phone] F: [phone] Problem Noted Date Malignant neoplasm of upper lobe bronchus 07/15/2017 Cancer Staging: Pathologic stage from 07/15/2017: Stage IA (yT1a, N0, cM0) - Signed by Blu Lay MD on 07/29/2017 Hypertension 02/03/2017 COPD (chronic obstructive pulmonary disease) 02/03/2017 Rheumatoid arthritis 02/03/2017 Smoking 02/03/2017 Family History Medical History Relation Name Comments [...] Assigned at Date Recorded Not on file Job Start Date Occupation Industry Not on file Not on file Not on file Travel History Travel Start Travel End No recent travel history available. Last Filed Vital Signs Not on file Plan of Treatment Health Maintenance Due Date Last Done Comments COLON CANCER SCREENING 2003 SHINGRIX VACCINE (1 of 2) 2003 ZOSTER VACCINE 2013 INFLUENZA VACCINE 06/03/2018 Implants Implanted Type Area Hire Car Driver Device Shelf Model / Identifier Expiration Serial / Date Lot Hemostat Absrbl Oxidized Knttd 3x4in Cllos Surgicel Nu-Knit - [id number] Surgical N/A: N/A [facility] 03/02/2022 1943 / Implanted: 07/15/2017 (Quantity not on file) Implants; / Expanders; [id number] Extenders; Surgical Wires Hemostat Absrbl Oxidized Knttd 3x4in Cllos Surgicel Nu-Knit - [id number] Surgical N/A: N/A [facility] 03/02/2022 1945 / Implanted: 07/15/2017 (Quantity not on file) Implants; / Expanders; [id number] Extenders; Surgical Wires Hemostat Absrbl Oxidized Knttd 3x4in Cllos Surgicel Nu-Knit - [id number] Surgical N/A: N/A [facility] 03/02/2022 1945 / Implanted: 07/15/2017 (Quantity not on file) Implants; / Expanders; [id number] Extenders; Surgical Wires Hemostat Absrbl Oxidized Knttd 3x4in Cllos Surgicel Nu-Knit - [id number] Surgical N/A: N/A [employer] [facility] 03/02/2022 1945 / Implanted: 07/15/2017 (Quantity not on file) Implants; / Expanders; [id number] Extenders; Surgical Wires Hemostat Absrbl Oxidized Knttd 3x4in Cllos Surgicel Nu-Knit - [id number] Surgical N/A: N/A [employer] - 03/02/2022 1943 / Implanted: 07/15/2017 (Quantity not on file) Implants; / Expanders; [id number] Extenders; Surgical Wires Kit Selnt Plrl Air Leak 4ml Strl Progel - [id number] Surgical N/A: N/A [employer] 07/04/2018 [id number] / Implanted: Qty: 1 on 07/15/2017 by Blu Lay MD Implants; / Expanders; Extenders; Surgical Wires Matrix [facility] Floseal 10ml W/ Humn F2 - [id number] Surgical N/A: N/A RUBIO [id number] / Implanted: 07/15/2017 (Quantity not on file) Implants; [employer]OS[employer]ENCE / Expanders; Extenders; Surgical Wires Kit Selnt Plrl Air Leak 4ml Strl Progel - [id number] Surgical N/A: N/A [employer] [id number] / Implanted: 07/15/2017 (Quantity not on file) Implants; / Expanders; Extenders; Surgical Wires Results Not on fileafter 09/18/2017 Insurance Payer Benefit Plan / Group Subscriber ID Type Phone Address [facility] MARÍA BRYANT xxxxxxxxxxxx PPO (Home) [phone] [place], [place] (Work) [phone] Advance Directives Patient has advance care planning documents on file. For more information, please contact:Marco A Kimball[address] [place] [address]
[2018-09-19] MEDS ORDERED: ALBUTEROL 2.5 MG/3 ML NEB SOL ONE (10:21)
[2018-09-19] MEDS ORDERED: IPRATROPIUM BROM 0.5MG/2.5ML ONE (10:22)
[2018-09-19] MEDS ORDERED: predniSONE 20 MG TAB ONE (10:22)
--- NOTE | 2018-09-19 10:52 | RAD REPORT ---
EXAM DESCRIPTION: RAD - Chest Single View - 09/19/2018 10:43 am CLINICAL HISTORY: COPD Chest pain. COMPARISON: Chest Pa And Lat (2 Views) dated 05/14/2018; Chest Single View dated 04/27/2018; Chest Sin gle View dated 04/26/2018; Chest Pa And Lat (2 Views) dated 04/06/2018 FINDINGS: Portable technique limits examination quality. Moderate to large left pneumothorax is seen, estimated at 50% of lung volume. Right lung is emphysema tous. Heart size is normal. IMPRESSION: Moderate to large left pneumothorax.
[2018-09-19] MEDS ORDERED: LIDOCAINE 2% MPF 5 ML VIAL ONE (11:03)
[2018-09-19 11:12] LABS: Absolute Lymphocytes (CBC) 0.3 K/uL (0.7-4.9); Absolute Neutrophil 7.6 K/uL (1.8-8.0); Basophils % 0.6 % (0-1.3); Eosinophils % 0.3 % (0-4.4); Hematocrit 37.1 % (39.6-49.0); Lymphocytes % 3.6 % (15.3-44.8); MCH 30.8 pg (27.0-35.0); Monocytes % 11.4 % (3.3-12.3); RBC Red Blood Cell Count 4.03 M/uL (4.33-5.43)
[2018-09-19 11:13] LABS: Protime INR 2.46
[2018-09-19 11:27] LABS: ALT/SGPT 26 U/L (12-78); AST/SGOT 19 U/L (15-37); Albumin 3.3 g/dL (3.4-5.0); Alkaline Phosphatase 56 U/L (45-117); BUN Blood Urea Nitrogen 32 mg/dL (7-18); Bicarbonate 25 mmol/L (21-32); Bilirubin Direct 0.2 mg/dL (0-0.2); Bilirubin Total 0.5 mg/dL (0.2-1.0); Glucose Level 117 mg/dL (74-106); Magnesium 2.4 mg/dL (1.8-2.4); NT PRO-BNP 672 pg/mL (<125); Potassium 4.2 mmol/L (3.5-5.1); Protein, Total 7.8 g/dL (6.4-8.2); Sodium Level 137 mmol/L (136-145); Troponin (Emerg Dept Use Only) < 0.02 ng/mL (0.0-0.045)
[2018-09-19 11:33] LABS: Anisocytosis SLIGHT; Blood Morphology Comment NOTED (NOT SEEN); Platelet Estimate ADEQ; Urine White Blood Cell Casts OK
[2018-09-19] MEDS ORDERED: FENTANYL CITR 100 MCG/2 ML ONE (11:46)
--- NOTE | 2018-09-19 12:03 | EDPHYS ---
Physician Documentation [facility] Name: Angelo Narvaez Age: 62 yrs Sex: Male : 1955 Arrival Date: 09/19/2018 Time: 09:48 Bed 4 Private MD: ED Physician Jimi Pace HPI: 09/19 11:48 This 62 yrs old Male presents to ER via Wheelchair with complaints of gs Shortness Of Breath. 11:48 The patient has shortness of breath at rest. Onset: The symptoms/episode began/occurred gs 2 day(s) ago, and became persistent. Duration: The symptoms are continuous. The patient's shortness of breath has no apparent modifying factors. Associated signs and symptoms: Pertinent positives: chest pain, non-productive cough. Severity of symptoms: At their worst the symptoms were moderate in the emergency department the symptoms are unchanged. The patient has experienced similar episodes in the past, a few times. The patient has not recently seen a physician. Historical: - Allergies: 09:52 No Known Allergies; la1 - PMHx: 09:52 a fib; COPD; HTN; lung cancer; la1 - Immunization history:: Adult Immunizations up to date. - Social history:: Smoking status: Patient/guardian denies using tobacco, the patient reports quitting approximately 2 years ago. - Ebola Screening: : No symptoms or risks identified at this time. ROS: 11:48 All other systems are negative. gs Exam: 11:48 Head/Face: Normocephalic, atraumatic. Eyes: Pupils equal round and reactive to light, gs extra-ocular motions intact. Lids and lashes normal. Conjunctiva and sclera are non-icteric and not injected. Cornea within normal limits. Periorbital areas with no swelling, redness, or edema. ENT: Nares patent. No nasal discharge, no septal abnormalities noted. Tympanic membranes are normal and external auditory canals are clear. Oropharynx with no redness, swelling, or masses, exudates, or evidence of obstruction, uvula midline. Mucous membranes moist. Neck: Trachea midline, no thyromegaly or masses palpated, and no cervical lymphadenopathy. Supple, full range of motion without nuchal rigidity, or vertebral point tenderness. No Meningismus. Chest/axilla: Normal chest wall appearance and motion. Nontender with no deformity. No lesions are appreciated. Cardiovascular: Regular rate and rhythm with a normal S1 and S2. No gallops, murmurs, or rubs. Normal PMI, no JVD. No pulse deficits. 11:48 Abdomen/GI: Soft, non-tender, with normal bowel sounds. No distension or tympany. No guarding or rebound. No evidence of tenderness throughout. Back: No spinal tenderness. No costovertebral tenderness. Full range of motion. Skin: Warm, dry with normal turgor. Normal color with no rashes, no lesions, and no evidence of cellulitis. MS/ Extremity: Pulses equal, no cyanosis. Neurovascular intact. Full, normal range of motion. Neuro: Awake and alert, GCS 15, oriented to person, place, time, and situation. Cranial nerves II-XII grossly intact. Motor strength 5/5 in all extremities. Sensory grossly intact. Cerebellar exam normal. Normal gait. 11:48 Constitutional: The patient appears alert, awake. 11:48 ECG was reviewed by the Attending Physician. 11:48 Respiratory: moderate respiratory distress is noted, Respirations: labored breathing, that is mild, tachypnea, that is mild, Breath sounds: decreased breath sounds, that are moderate, are heard in the left posterior lower lobe. Vital Signs: 09:55 BP 163 / 74; Pulse 101; Resp 22; Temp 98.7; Pulse Ox 97% on 2 lpm NC; Weight 68.04 kg la1 (R); Height 5 ft. 3 in. (160.02 cm); 10:10 Pulse Ox 88% on R/A; ph 10:45 BP 154 / 76; Pulse 95; Resp 26; Pulse Ox 95% on 2 lpm NC; ph 11:44 BP 147 / 84; Pulse 90; Resp 18; Pulse Ox 96% on 2 lpm NC; ph 12:49 BP 132 / 81; Pulse 86; Resp 20; Pulse Ox 97% on 2 lpm NC; ph 09:55 Body Mass Index 26.57 (68.04 kg, 160.02 cm) la1 Procedures: 11:48 Chest tube insertion: the site was prepped using Betadine, in sterile fashion, Tube gs size: pigtail introduced in left lateral to pleur-e-vac, dressed with foam tape, the patient tolerated the procedure well. MDM: 10:10 Patient medically screened. gs 11:48 Differential diagnosis: CHF exacerbation, Chronic Obstructive Pulmonary Disease gs pneumonia, Pneumothorax. Data reviewed: vital signs, nurses notes. Counseling: I had a detailed discussion with the patient and/or guardian regarding: the historical points, exam findings, and any diagnostic results supporting the discharge/admit diagnosis, lab results, radiology results, the need for further work-up and treatment in the hospital, need for chest tube. 09/19 10:10 Order name: Basic Metabolic Panel; Complete Time: 11: 09/19 10:10 Order name: CBC with Diff; Complete Time: 11:35 09/19 10:10 Order name: LFT's; Complete Time: : 09/19 10:10 Order name: Magnesium; Complete Time: : 09/19 10:10 Order name: NT PRO-BNP; Complete Time: : 09/19 10:10 Order name: PT-INR; Complete Time: : 09/19 10:10 Order name: Troponin (emerg Dept Use Only); Complete Time: : 09/19 10:10 Order name: XRAY Chest (1 view); Complete Time: 10:54 09/19 10:10 Order name: Flu; Complete Time: : 09/19 10:13 Order name: Blood Culture* 09/19 11:17 Order name: CBC Smear Scan; Complete Time: 11:35 [facility] 09/19 12:13 Order name: Troponin I [facility] 09/19 12:13 Order name: Troponin I [facility] 09/19 12:13 Order name: Troponin I [facility] 09/19 10:10 Order name: EKG; Complete Time: 10: 09/19 10:10 Order name: Cardiac monitoring; Complete Time: : 09/19 10:10 Order name: EKG - Nurse/Tech; Complete Time: : 09/19 10:10 Order name: IV Saline Lock; Complete Time: : 09/19 10:10 Order name: Labs collected and sent; Complete Time: : 09/19 10:10 Order name: O2 Per Protocol; Complete Time: 10: 09/19 10:10 Order name: O2 Sat Monitoring; Complete Time: : 09/19 11:35 Order name: XRAY CXR (1 view); Complete Time: 12:14 09/19 12:13 Order name: Heart Healthy EDDE EC:48 Rate is 93 beats/min. Rhythm is regular. CO interval is normal. QRS interval is gs prolonged. Q waves are Old in leads V1, V2. T waves are Normal. No ST changes noted. Clinical impression: Abnormal EKG without significant change. Interpreted by me. Administered Medications: 10:25 Drug: Albuterol 2.5 mg Route: Inhalation; ph 11:00 Follow up: Response: No adverse reaction ph 10:25 Drug: AtroVENT Aerosol 0.5 mg Route: Inhalation; ph 11:00 Follow up: Response: No adverse reaction ph 10:25 Drug: predniSONE 40 mg Route: PO; ph 12:00 Follow up: Response: No adverse reaction ph 11:44 Drug: fentaNYL (PF) 50 mcg Route: IVP; Site: right antecubital; ph 12:00 Follow up: Response: No adverse reaction; Pain is decreased ph Disposition: 11:48 Critical Care:. gs Disposition: 09/19/18 12:02 Hospitalization ordered by Danial Wilkins for Inpatient Admission. Preliminary diagnosis is Pneumothorax, unspecified. - Bed requested for Telemetry/MedSurg (Inpatient). - Status is Inpatient Admission. sg - Condition is Stable. - Problem is new. - Symptoms have improved. UTI on Admission? No Critical care time excluding procedures: 11:48 Critical care time: Bedside Care: 10 minutes, Consultation: 10 minutes, Family gs Intervention: 10 minutes. Total time: 30 minutes Signatures: Dispatcher [facility] Maycol Marino RN RN Mateusz Calles PA PA [id number] Dudley Morgan RN RN la1 Jeanine Caldwell RN RN Jimi Pace MD MD Kiarra Beckman Corrections: (The following items were deleted from the chart) 12:08 12:02 Hospitalization Ordered by Danial Wilkins MD for Inpatient Admission. Preliminary eb diagnosis is Pneumothorax, unspecified. Bed requested for Telemetry/MedSurg (Inpatient). Status is Inpatient Admission. Condition is Stable. Problem is new. Symptoms have improved. UTI on Admission? No. gs 12:48 12:08 09/19/2018 12:02 Hospitalization Ordered by Danial Wilkins MD for Inpatient eb Admission. Preliminary diagnosis is Pneumothorax, unspecified. Bed requested for Telemetry/MedSurg (Inpatient). Status is Inpatient Admission. Condition is Stable. Problem is new. Symptoms have improved. UTI on Admission? No. eb 13:55 12:48 09/19/2018 12:02 Hospitalization Ordered by Danial Wilkins MD for Inpatient sg Admission. Preliminary diagnosis is Pneumothorax, unspecified. Bed requested for Telemetry/MedSurg (Inpatient). Status is Inpatient Admission. Condition is Stable. Problem is new. Symptoms have improved. UTI on Admission? No. eb
--- NOTE | 2018-09-19 12:03 | ER ---
Nurse's Notes [facility] Name: Angelo Narvaez Age: 62 yrs Sex: Male : 1955 Arrival Date: 09/19/2018 Time: 09:48 Bed 4 Private MD: Diagnosis: Pneumothorax, unspecified Presentation: 09/19 09:54 Presenting complaint: Patient states: I have a history of lung CA and copd and I have la1 been having a productive cough for the last 3 days and fever tmax 101 yesterday. Transition of care: patient was not received from another setting of care. Onset of symptoms was September 19, 2018. Risk Assessment: Do you want to hurt yourself or someone else? Patient reports no desire to harm self or others. Initial Sepsis Screen: Does the patient meet any 2 criteria? Yes Does the patient have a suspected source of infection? No. Patient's initial sepsis screen is negative. Care prior to arrival: None. 09:54 Method Of Arrival: Wheelchair la1 09:54 Acuity: STEPHIE 3 la1 Historical: - Allergies: 09:52 No Known Allergies; la1 - PMHx: 09:52 a fib; COPD; HTN; lung cancer; la1 - Immunization history:: Adult Immunizations up to date. - Social history:: Smoking status: Patient/guardian denies using tobacco, the patient reports quitting approximately 2 years ago. - Ebola Screening: : No symptoms or risks identified at this time. Screenin:36 Abuse screen: Denies threats or abuse. Denies injuries from another. Nutritional ph screening: No deficits noted. Tuberculosis screening: No symptoms or risk factors identified. Fall Risk No fall in past 12 months (0 pts). No secondary diagnosis (0 pts). IV access (20 points). Ambulatory Aid- None/Bed Rest/Nurse Assist (0 pts). Gait- Normal/Bed Rest/Wheelchair (0 pts) Mental Status- Oriented to own ability (0 pts). Total Haskins Fall Scale indicates No Risk (0-24 pts). Assessment: 10:33 General: Appears in no apparent distress. uncomfortable, well groomed, Behavior is ph calm, cooperative, appropriate for age, Reports fever for 1-2 days. Pain: Complains of pain in anterior aspect of right upper chest. Neuro: Level of Consciousness is awake, alert, obeys commands, Oriented to person, place, time, situation. Cardiovascular: Reports chest pain, shortness of breath, Denies nausea, vomiting, Capillary refill < 3 seconds in bilateral fingers Patient's skin is warm and dry. Rhythm is sinus rhythm Chest pain is located in right anterior chest wall. Respiratory: Reports shortness of breath at rest cough that is productive, Airway is patent Respiratory effort is even, shallow, Respiratory pattern is tachypnea Breath sounds are coarse in mediastinum. GI: No signs and/or symptoms were reported involving the gastrointestinal system. Derm: Skin is intact, is healthy with good turgor, Skin is pink, warm \T\ dry. Musculoskeletal: Circulation, motion, and sensation intact. Range of motion: intact in all extremities. 11:40 Reassessment: Patient appears in no apparent distress at this time. Patient and/or ph family updated on plan of care and expected duration. Pain level reassessed. Patient is alert, oriented x 3, equal unlabored respirations, skin warm/dry/pink. Dr Pace at bedside for chest tube insertion, consent form signed by pt prior to procedure. 12:48 Reassessment: Patient appears in no apparent distress at this time. Patient and/or ph family updated on plan of care and expected duration. Pain level reassessed. Patient is alert, oriented x 3, equal unlabored respirations, skin warm/dry/pink. Pt reports that SOB has improved since chest tube insertion, rates pain 3/10 after pain medication, VSS, at bedside, awaiting room assignment. 13:11 Reassessment: Patient appears in no apparent distress at this time. Patient and/or ph family updated on plan of care and expected duration. Pain level reassessed. Patient is alert, oriented x 3, equal unlabored respirations, skin warm/dry/pink. Report called to Erlin ZARAGOZA, pt waiting to be taken to 4th floor. Vital Signs: 09:55 BP 163 / 74; Pulse 101; Resp 22; Temp 98.7; Pulse Ox 97% on 2 lpm NC; Weight 68.04 kg la1 (R); Height 5 ft. 3 in. (160.02 cm); 10:10 Pulse Ox 88% on R/A; ph 10:45 BP 154 / 76; Pulse 95; Resp 26; Pulse Ox 95% on 2 lpm NC; ph 11:44 BP 147 / 84; Pulse 90; Resp 18; Pulse Ox 96% on 2 lpm NC; ph 12:49 BP 132 / 81; Pulse 86; Resp 20; Pulse Ox 97% on 2 lpm NC; ph 09:55 Body Mass Index 26.57 (68.04 kg, 160.02 cm) la1 ED Course: 09:48 Patient arrived in ED. tw3 09:52 Arm band placed on left wrist. la1 09:55 Triage completed. la1 09:56 Jeanine Caldwell RN is Primary Nurse. ph 10:01 Jimi Pace MD is Attending Physician. gs 10:15 EKG done, by ED staff, reviewed by Jimi Pace MD. jb1 10:19 Flu and/or RSV swab sent to lab. jb1 10:20 Initial lab(s) drawn, by me, sent to lab. First set of blood cultures drawn by me. ph Inserted saline lock: 20 gauge in right antecubital area, using aseptic technique. Blood collected. 10:36 Patient has correct armband on for positive identification. Placed in gown. Bed in low ph position. Call light in reach. Side rails up X 1. director commercial sales on. Pulse ox on. NIBP on. Warm blanket given. 10:43 XRAY Chest (1 view) In Process Unspecified. EDMS 11:16 Surgical consent explained by physician, signed by patient, for chest tube insertion, sg (pigtail catheter). 11:42 Assist provider with chest tube insertion with a pigtail chest catheter was inserted by chris Canela in left anterior chest wall. Tray was set up. Attached to pleur-e-vac. Chest tube inserted by Jimi Pace MD Placement verified by CXR, fluctuation of fluid, return of air, Dressed with biopatch, sterile dressing, [id number], tape x1 Patient tolerated well. Chest tube maintenance: Connected to pleur-e-vac. Fluctuates with respirations. Site clean \T\ dry. 11:46 One-on-one care X 30 minutes. sg 11:55 XRAY CXR (1 view) In Process Unspecified. EDMS 12:02 Danial Wilkins MD is Hospitalizing Provider. gs 13:50 Patient admitted, IV remains in place. intact, No redness/swelling at site. sg Administered Medications: 10:25 Drug: Albuterol 2.5 mg Route: Inhalation; ph 11:00 Follow up: Response: No adverse reaction ph 10:25 Drug: AtroVENT Aerosol 0.5 mg Route: Inhalation; ph 11:00 Follow up: Response: No adverse reaction ph 10:25 Drug: predniSONE 40 mg Route: PO; ph 12:00 Follow up: Response: No adverse reaction ph 11:44 Drug: fentaNYL (PF) 50 mcg Route: IVP; Site: right antecubital; ph 12:00 Follow up: Response: No adverse reaction; Pain is decreased ph Outcome: 12:02 Decision to Hospitalize by Provider. gs 13:50 Admitted to Med/surg accompanied by nurse, accompanied by tech, family with patient, sg via stretcher, room 407, with oxygen, with chart, Report called to Erlin ZARAGOZA 13:50 Condition: stable 13:50 Instructed on the need for admit, safety practices, Demonstrated understanding of instructions, Report given by KUNAL primary RN prior to transport to fourth floor 13:55 Patient left the ED. sg Signatures: Dispatcher [employer] EDMS Olu Bland jb1 Maycol Marino RN RN sg Dudley Morgan RN RN la1 Jeanine Caldwell RN RN ph Gareth, [facility] tw3 Jimi Pace MD MD Corrections: (The following items were deleted from the chart) 10:40 10:33 Respiratory: Reports shortness of breath at rest cough that is productive, Airway ph is patent Respiratory effort is even, shallow, Respiratory pattern is tachypnea Breath sounds are coarse in mediastinum Breath sounds with wheezes in right upper lobe and left upper lobe ph
--- NOTE | 2018-09-19 12:06 | RAD REPORT ---
EXAM DESCRIPTION: RAD - Chest Single View - 09/19/2018 11:55 am CLINICAL HISTORY: post ct Chest pain. COMPARISON: Chest Single View dated 09/19/2018; Chest Pa And Lat (2 Views) dated 05/14/2018; Chest Si ngle View dated 04/27/2018; Chest Single View dated 04/26/2018 FINDINGS: Portable technique limits examination quality. A left-sided small bore chest tube has been placed directed cephalad. The majority of the previously noted left pneumothorax has been decompressed. The lungs remain emphysematous. The heart is upper sepulveda it normal size. No displaced fractures.
[2018-09-19] MEDS ORDERED: IPRATROPIUM BROM 0.5MG/2.5ML NEB PRN (12:08)
[2018-09-19] MEDS ORDERED: ACETAMINOPHEN 500 MG TAB PO PRN (12:08)
[2018-09-19] MEDS ORDERED: ALBUTEROL 2.5 MG/3 ML NEB SOL NEB PRN (12:08)
[2018-09-19] MEDS ORDERED: ONDANSETRON 4 MG/2 ML VIAL IV PRN (12:08)
[2018-09-19] MEDS: MORPHINE 4 MG/ML SYR IV PRN ×3 (15:06→23:52)
[2018-09-19] MEDS ORDERED: CYCLOBENZAPRINE 10 MG TAB PO PRN (22:05)
[2018-09-19] MEDS: ATORVASTATIN 10 MG TAB PO SCH (22:25)
[2018-09-19] MEDS: SPIRONOLACTONE 25 MG TABLET PO SCH (22:26)
[2018-09-19] MEDS: METOPROLOL XL 100 MG TAB PO SCH (22:26)
[2018-09-19] MEDS: GABAPENTIN 300 MG CAP PO SCH (22:27)
[2018-09-20] MEDS: MORPHINE 4 MG/ML SYR IV PRN ×4 (04:04→19:44)
[2018-09-20 05:45] LABS: Absolute Lymphocytes (CBC) 0.2 K/uL (0.7-4.9); Absolute Monocytes 0.7 K/uL (0.1-1.3); Absolute Neutrophil 5.3 K/uL (1.8-8.0); Basophils % 0.2 % (0-1.3); Eosinophils % 0.1 % (0-4.4); Hematocrit 36.1 % (39.6-49.0); Lymphocytes % 2.8 % (15.3-44.8); MCH 30.5 pg (27.0-35.0); MCV 91.9 fL (80-100); MPV 8.4 fL (7.6-11.3); RBC Red Blood Cell Count 3.93 M/uL (4.33-5.43)
[2018-09-20 06:13] LABS: Potassium 3.9 mmol/L (3.5-5.1)
[2018-09-20] MEDS: GABAPENTIN 300 MG CAP PO SCH ×2 (09:17→21:38)
--- NOTE | 2018-09-20 10:34 | RAD REPORT ---
EXAM DESCRIPTION: RAD - Chest Single View - 09/20/2018 6:23 am CLINICAL HISTORY: ptx Chest pain. COMPARISON: Chest Single View dated 09/19/2018; Chest Single View dated 09/19/2018; Chest Pa And Lat (2 Views) dated 05/14/2018; Chest Single View dated 04/27/2018 FINDINGS: Portable technique limits examination quality. The patient's small bore left chest tube is noted, however the location of the tip of the chest tube is somewhat unclear on today's study. The chest tube may have been retracted with the tip in the ashish on of the left rib cage. Advise correlation with direct inspection. Small left-sided pneumothorax is present, slightly larger than on the preceding day's study, however probably 5% of total lung volume. The lungs are emphysematous.
--- NOTE | 2018-09-20 11:13 | P.CNS ---
Date of Consult: 09/20/18 Reason for Consult: Left-sided pneumothorax Chief Complaint: Shortness of breath History of Present Illness: Patient is 62 years of age well known to me currently [facility] developed sudden onset of shortness of breath admitted from the emergency room with a significant left-sided pneumothorax has subsequently a chest tube was inserted in the emergency room his lung is not fully inflated does not have any air leak still feels very short of breath Allergies No Known Allergies Allergy (Verified 04/26/18 21:47) Home Medications: Acetaminophen [Pain Reliever] 2 tab PO PRN PRN 04/26/18 Albuterol Sulfate [Proair Hfa] 2 puff IH Q4HP PRN 04/26/18 Aspirin [Adult Aspirin] 1 tab PO DAILY 04/26/18 Cholecalciferol (Vitamin D3) [Vitamin D3] 1 cap PO DAILY 04/26/18 Folic Acid 3 tab PO DAILY 04/26/18 Gabapentin [Neurontin*] 300 mg PO BID 04/26/18 Magnesium Oxide [Magnesium] 250 mg PO DAILY 04/26/18 Metoprolol Tartrate [Lopressor] 100 mg PO BID 04/26/18 Multivitamin [One-Daily Multi-Vitamin] 1 tab PO DAILY 04/26/18 Perforomist 20 mcg NEB BID 04/26/18 Rivaroxaban [Xarelto*] 1 tab PO DAILY 04/26/18 Simvastatin 20 mg PO BEDTIME 04/26/18 Spironolact/Hydrochlorothiazid [Spironolactone-Hctz 25-25 Tab] 12.5 mg PO DAILY 04/26/18 Albuterol Ipratropium 2.5 mg NEB Q6HP PRN 04/27/18 Amiodarone HCl [Cordarone Tab] 200 mg PO DAILY 09/19/18 Cyclobenzaprine [Flexeril] 5 mg PO PRN 09/19/18 Furosemide 80 mg PO DAILY 09/19/18 Prednisone [Steven] 5 mg PO DAILY 09/19/18 Tiotropium [Spiriva Handihaler] 18 mcg IH DAILY 09/19/18 - Past Medical/Surgical History Diabetic: No -: HTN -: COPD -: Atrial fibrillation -: Lung cancer(does not know which type) -: left upper lung lobectomy with lymph node resection -: appendectomy - Social History Alcohol use: Yes CD- Drugs: No Place of Residence: Home Review of Systems 10-point ROS is otherwise unremarkable General: Weakness Eyes: Pain Respiratory: Shortness of Breath Physical Examination Temp Pulse Resp BP Pulse Ox 99.3 F 97 H 18 171/86 H 96 09/20/18 08:00 09/20/18 08:00 09/20/18 08:00 09/20/18 08:00 09/20/18 08:00 General: Alert, Oriented x3, Moderate distress HEENT: Atraumatic Neck: Supple Respiratory: Diminished, Expiratory wheezes Cardiovascular: No edema, Regular rate/rhythm Gastrointestinal: Normal bowel sounds, Soft and benign Musculoskeletal: No clubbing, No contractures Integumentary: No rashes, No breakdown Laboratory Data (last 24 hrs) 09/19/18 10:55: PT 29.3 H, INR 2.46 09/19/18 10:55: WBC 9.1, Hgb 12.4 L, Hct 37.1 L, Plt Count 224 09/19/18 10:55: Sodium 137, Potassium 4.2, BUN 32 H, Creatinine 2.20 H, Glucose 117 H, Magnesium 2.4, Total Bilirubin 0.5, AST 19, ALT 26, Alkaline Phosphatase 56 - Problems (1) Pneumothorax Current Visit: Yes Status: Acute Plan: Patient is 62 years of age with a history of COPD lung cancer admitted with a spontaneous pneumothorax on the left side he currently does not have any air leak chest tube in place plan is to continue with suction turn off the suction at 12:00 a.m. midnight tonight and plan for an eye iodine pleurodesis tomorrow phase lung remains expanded and is no air leak complains of chest discomfort from the chest tube optimize bronchodilators Qualifiers: Pneumothorax type: spontaneous, primary Qualified Code(s): J93.11 - Primary spontaneous pneumothorax
[2018-09-20] MEDS: ARFORMOTEROL TARTRATE 15 MCG/2 ML VIAL.NEB NEB SCH ×2 (12:00→19:21)
[2018-09-20] MEDS: predniSONE 20 MG TAB PO SCH ×2 (12:38→21:38)
[2018-09-20] MEDS: IPRATROPIUM BROM 0.5MG/2.5ML NEB SCH ×2 (13:39→19:24)
[2018-09-20] MEDS ORDERED: POVIDONE-IODINE 118.25 ML BOTTLE TOP SCH (15:15)
[2018-09-20] MEDS ORDERED: ACETAMINOPHEN 500 MG TAB PO PRN (17:15)
[2018-09-20] MEDS ORDERED: ALBUTEROL INHALER 60 PUFF/8 GM IH PRN (17:15)
[2018-09-20] MEDS ORDERED: CYCLOBENZAPRINE 10 MG TAB PO PRN (18:00)
--- NOTE | 2018-09-20 20:25 | PN ---
Date of Progress Note: 09/20/2018 The patient states he feels considerably better since the tube was inserted, however he still dyspnei c so coughing up purulent material, which he states it has been going on for months now. Awaiting se nsitivity before deciding what antibiotics to use. Has been seen by the car pilot. HR/MODL Voice ID: [id number] Report ID: [id number]
--- NOTE | 2018-09-20 20:58 | PN ---
Chief Complaint: Chest pain, shortness of breath. History Of Present Illness: The patient states he was fine until 2 days prior to being seen in the e mergency room. The patient was driving a car, he felt more dyspneic than usual. He then had some si gnificant chest pain. This progressed. He was brought to the ER where pneumothorax was noted. No p rior history of such. The patient states he continues to cough up what he describe is yellow sputum, but this has been going on for months. He has been tried on various antibiotics, which he said have not been of any value. He has continued to see his numerous physicians including Pulmonology, Cardi ology, Nephrology, and Cancer Center. Past History: As outlined above. The patient has had significant problems with his lung including p artial lobectomy and COPD, cardiac disease, coronary artery disease of some significance, although he said he saw his coin machine mechanic last week and there was no significant change. Also seeing Nephrology. There was some change in his creatinine with still in the over 2-3 range and he was followed at [facility] as well. Social History: The patient states he stopped smoking as of recently. Family History: Noncontributory. Physical Examination: General: The patient is an elderly, obviously dyspneic male, slightly use of accessory muscles to br eathe. Vital Signs: Stable vital signs. Head and Neck: Normocephalic. Pupils are equal, reactive to light and accommodation, fundi negative . Trachea midline. Thyroid not palpable. ENT: Negative. Chest: Rales of both bases. Decreased air sounds in the upper left. Cardiovascular: PMI midclavicular line. Heart sounds normal. Peripheral pulses present and equal b ilaterally. Abdomen: No organomegaly. Bowel sounds present. Extremities: Slightly dehydrated. Good tone and movement bilaterally. Reflexes physiologic. Rectal: Deferred. Impression: Pneumothorax, chronic obstructive pulmonary disease, coronary artery disease, renal insu fficiency, cancer along by history. Plan: The patient will be admitted and tube will be inserted to relieve the pneumothorax. This was done with marked success and symptom duran as well as on x-ray. IV fluids to be given awaiting the cu lture prior to institution of antibiotics. He will be seen by Pulmonology while in the hospital. HR/MODL Voice ID: [id number] Report ID: [id number]
[2018-09-20] MEDS ORDERED: METOPROLOL TAR 50 MG TAB PO SCH (21:00)
[2018-09-20] MEDS ORDERED: GABAPENTIN 300 MG CAP PO SCH (21:00)
[2018-09-20] MEDS ORDERED: HOME MED 1 EA UNK (Metoprolol Tartrate [Lopressor] 100 MG) PO SCH (21:00)
[2018-09-20] MEDS: METOPROLOL XL 100 MG TAB PO SCH (21:37)
[2018-09-20] MEDS: SPIRONOLACTONE 25 MG TABLET PO SCH (21:38)
[2018-09-20] MEDS: ATORVASTATIN 10 MG TAB PO SCH (21:38)
[2018-09-21] MEDS: MORPHINE 4 MG/ML SYR IV PRN ×3 (00:55→20:50)
[2018-09-21] MEDS: IPRATROPIUM BROM 0.5MG/2.5ML NEB SCH ×4 (01:45→20:04)
[2018-09-21] MEDS: HYDROCODONE/APAP 5/325 MG TAB PO PRN (05:40)
[2018-09-21] MEDS ORDERED: NA CHLORIDE 0.9% TOP SCH ×2 (07:30)
[2018-09-21] MEDS ORDERED: POVIDONE-IODINE 20 ML, NA CHLORIDE 0.9% 80 ML TOP SCH ×2 (07:30)
[2018-09-21] MEDS ORDERED: LIDOCAINE 2% TOP SCH ×2 (07:30)
[2018-09-21] MEDS: ARFORMOTEROL TARTRATE 15 MCG/2 ML VIAL.NEB NEB SCH ×2 (07:45→20:04)
--- NOTE | 2018-09-21 08:38 | RAD REPORT ---
EXAM DESCRIPTION: RAD - Chest Single View - 09/21/2018 5:59 am CLINICAL HISTORY: Follow for pneumothorax Chest pain. COMPARISON: Chest Single View dated 09/20/2018; Chest Single View dated 09/19/2018; Chest Single Vie w dated 09/19/2018; Chest Pa And Lat (2 Views) dated 05/14/2018 FINDINGS: Portable technique limits examination quality. Small left sided pneumothorax, estimated at 10% of lung volume, appears unchanged. Small bore left ch est tube is again noted along the left thoracic cage with its tip not clearly visualized but probably along the thoracic cage. Small left pleural effusion.The lungs are emphysematous.
--- NOTE | 2018-09-21 08:52 | P.PN ---
Subjective Date of Service: 09/21/18 Chief Complaint: Left-sided pneumothorax Patient is doing better no new complaints Review of Systems Unremarkable Cardiovascular: Chest Pain (Some discomfort on the left side with a chest tube was inserted) Physical Examination - Vital Signs Temperature: 97.8 F Blood Pressure: 111/68 Pulse: 73 Respirations: 18 Pulse Ox (%): 93 - Physical Exam General: Alert, Oriented x3 Respiratory: Clear to auscultation bilaterally, Diminished Cardiovascular: No edema, Regular rate/rhythm Assessment & Plan - Problems (Diagnosis) (1) Pneumothorax Onset Date: 09/21/18 Current Visit: Yes Status: Acute Plan: Patient admitted with a left-sided spontaneous pneumothorax is chest x-ray shows a possible small pneumothorax on the left side as per radiology report I tried to do a pleurodesis over there was a significant leak from the chest tube at the entry site the plan to do another CT scan to check if he Buli/patient has severe COPD discuss with thoracic surgeon previous CT scan has not shown any significant coli Probably consider replacing the chest tube and then consider pleurodesis Qualifiers: Pneumothorax type: spontaneous, primary Qualified Code(s): J93.11 - Primary spontaneous pneumothorax
[2018-09-21] MEDS ORDERED: FUROSEMIDE 80 MG PO SCH (09:00)
[2018-09-21] MEDS ORDERED: SPIRONOLACTONE PO SCH (09:00)
[2018-09-21] MEDS ORDERED: HYDROCHLOROTHIAZIDE PO SCH (09:00)
[2018-09-21] MEDS: HOME MED 1 EA UNK (Magnesium Oxide [Magnesium] 250 MG) PO SCH (09:00)
[2018-09-21] MEDS ORDERED: HOME MED 1 EA UNK (Cholecalciferol (Vitamin D3) [Vitamin D3] 1 CAP) PO SCH (09:00)
[2018-09-21] MEDS ORDERED: TIOTROPIUM 5 SPRAYS/INHALER IH SCH (09:00)
[2018-09-21] MEDS ORDERED: [UNRECOGNIZED DRUG - OTHER] PO SCH (09:00)
[2018-09-21] MEDS: MULTIVITAMIN TAB PO SCH (09:04)
[2018-09-21] MEDS: ASPIRIN EC 81 MG TAB PO SCH (09:04)
[2018-09-21] MEDS: RIVAROXABAN 15 MG TABLET PO SCH (09:04)
[2018-09-21] MEDS: VITAMIN D 1000 UNIT TAB PO SCH (09:04)
[2018-09-21] MEDS: hydroCHLOROthiazide 12.5 MG CAP PO SCH (09:04)
[2018-09-21] MEDS: METOPROLOL XL 50 MG TAB PO SCH ×2 (09:05→20:51)
[2018-09-21] MEDS: FUROSEMIDE 40 MG TABLET PO SCH (09:06)
[2018-09-21] MEDS: AMIODARONE HCL 200 MG TAB PO SCH (09:06)
[2018-09-21] MEDS: FOLIC ACID 1 MG TABLET PO SCH (09:06)
[2018-09-21] MEDS: predniSONE 20 MG TAB PO SCH ×2 (09:06→20:52)
[2018-09-21] MEDS: GABAPENTIN 300 MG CAP PO SCH ×2 (09:07→20:52)
[2018-09-21] MEDS ORDERED: LIDOCAINE 1% MPF 5 ML VIAL ONE ×2 (10:47→10:49)
--- NOTE | 2018-09-21 11:06 | RAD REPORT ---
EXAM DESCRIPTION: CT - Thorax Wo Con CLINICAL HISTORY: Chest pain Left-sided pneumothorax COMPARISON: Thorax Wo Con dated 07/02/2018; Chest Single View dated 09/21/2018; Chest Single View connie ed 09/20/2018 FINDINGS: A small hydropneumothorax is present on the left estimated at 15-20% of lung volume. A lef t-sided small bore chest tube is noted however the tip does not appear in the pleural space appears l ocated at the level of anterolateral intercostal space between the third and fourth rib. Poorly defin ed opacities in the right lung base are noted with trace right pleural fluid. The right lung is emphy sematous. No axillary, mediastinal or hilar adenopathy. Aortic atherosclerosis. No concerning bony finding. Multiple cysts are present involving the left kidney. All CT scans are performed using dose optimization technique as appropriate and may include automated exposure control or mA/KV adjustment according to patient size. IMPRESSION: Small left hydropneumothorax is present estimated at 15-20% of lung volume.Small bore le ft-sided chest tube appears to have been retracted to the level of the intercostal space and is not w ithin the left pleural space currently. Ill-defined right basilar lung opacities are present with trace right pleural fluid likely representi ng aspiration versus developing pneumonia.
--- NOTE | 2018-09-21 11:17 | P.OP ---
Preoperative diagnosis: LEFT pneumothorax Postoperative diagnosis: LEFT pneumothorax Primary procedure: Placement of 8 Fr LEFT thoracostomy tube Anesthesia: Local 1% lidocaine Estimated blood loss: <1cc Specimen: none Findings: air bubbling in pneumovac @ end of procedure Complications: None Implants: 8 [place] Thoracostomy Tube Transferred to: Other (Room) Condition: Good
--- NOTE | 2018-09-21 12:14 | RAD REPORT ---
EXAM DESCRIPTION: RAD - Chest Single View - 09/21/2018 11:34 am CLINICAL HISTORY: f/u pneumothorax Chest pain. COMPARISON: Chest Single View dated 09/21/2018; Chest Single View dated 09/20/2018; Chest Single Vie w dated 09/19/2018; Chest Single View dated 09/19/2018 FINDINGS: Portable technique limits examination quality. The pigtail chest tube appears to have been placed which is located along the left thoracic cage. Lef t-sided pneumothorax persists, however small in size estimated at 10% of lung volume. Mild left-sided pleural fluid is also present. Ill-defined opacities in the right lung base are noted likely represe nting aspiration/ developing pneumonia.
--- NOTE | 2018-09-21 13:34 | CON ---
Date of Consultation: 09/21/2018 Reason For Consultation: Left persistent pneumothorax despite chest tube placement. Brief History Of Present Illness: The patient is a 62-year-old male, who presents to the [facility] room with shortness of breath. He has had coughing spells 2 days prior to admission to the hospital. He was admitted on 09/19/2018. He has a history of left lung cancer. He says he had a pa rtial pneumonectomy at that time approximately a year to a year and a half ago. Since then, he has h ad 2 spontaneous pneumothoraces. He returns now with findings of a spontaneous pneumothorax once aga in. He was seen by Dr. Sawant, who placed a left thoracostomy tube, which improved the aeration of the lung. However, he continued to have 10% to 15% pneumothorax by chest x-ray, which was unable to be completely evacuated. Past Medical History: Significant for atrial fibrillation, COPD, hypertension, and lung cancer. Past Surgical History: He has had a partial pneumonectomy as above and multiple thoracostomy tubes p laced for spontaneous pneumothoraces postoperatively. Smoking, he denies using tobacco currently, bu t he quit 2 years ago. Before that, he had heavy tobacco use. Alcohol, denies alcohol or recreation al drug use. Allergies: NO KNOWN DRUG ALLERGIES. Home Medications: Albuterol, Perforomist, acetaminophen, ProAir, Cordarone, aspirin, vitamin D3, Fle xeril, folic acid, Lasix, Neurontin, magnesium, Toprol-XL, multivitamin, prednisone, Xarelto, simvast atin, spironolactone/hydrochlorothiazide, and Spiriva. Review of Systems: A 10-point review of systems other than HPI, denies. Physical Examination: Vital Signs: At the time of my examination, his BMI is 25.0. His blood pressure 122/68, pulse 69, r espiratory rate 18, temperature 97.8. He is saturating 96% on 3 L nasal cannula. He had a chest x-r ay performed as well as in addition to multiple imaging, which I will describe later. HEENT: Normocephalic. His sclerae are anicteric. His mucous membranes are moist. Oropharynx clear . Neck: Supple. No JVD. Chest: Normal expansion. He has a left-sided thoracostomy tube on the left chest wall on examinatio n, I feel that this is likely not in the intrathoracic space, but probably resides in the subcutaneou s space and is likely the etiology for the nonfunction. He has equal breath sounds, however, bilater ally with some wheezes bilaterally. Abdomen: Soft. Extremities: No clubbing, cyanosis, or edema skin is warm and dry. Imaging: Laboratory Data: His white blood count of 6.1, hemoglobin 12.0, hematocrit 36.1, platelet count is 2 34, neutrophils 85%. Sodium 135, potassium 3.9, chloride 98, carbon dioxide 28, BUN 40, creatinine 2 .3, glucose is 121. His PT was 23.9 on admission. INR 2.46 on admission. He had a chest x-ray perf ormed including multiple imaging. His chest x-ray on admission was officially read as moderate to la rge left pneumothorax with 50% of the lung volume and the right lung volume was emphysematous. The p neumothorax was on the left. He had the thoracostomy tube placed and had followup chest CT performed on 09/21/2018, which showed small left hydropneumothorax present estimated 15% to 20% lung volume. A small bore left-sided chest tube appears to be retracted level intercostal space is not within the left lower cavity space. Currently an ill-defined right basilar lung opacity is present with trace r ight pleural fluid, likely representing aspiration versus developing pneumonia. Assessment And Plan: This is a 62-year-old male who comes in with a persistent left pneumothorax, li ronald due to malposition of the chest tube. I have explained the risks, benefits, and alternatives of removal and replacement of left thoracostom y tube, including but not limited to bleeding, infection, damage to surrounding tissues, need for further operation procedures. The patie nt agrees to proceed as indicated. ALYSHA/RYAN Voice ID: [id number] Report ID: [id number]
[2018-09-21] MEDS ORDERED: LIDOCAINE 2% TOP ONE ×2 (15:00)
[2018-09-21] MEDS ORDERED: NA CHLORIDE 0.9% TOP ONE ×2 (15:00)
--- NOTE | 2018-09-21 15:09 | RAD REPORT ---
EXAM DESCRIPTION: RAD - Chest Single View - 09/21/2018 3:04 pm CLINICAL HISTORY: f/u pneumothorax Chest pain. COMPARISON: Chest Single View dated 09/21/2018; Chest Single View dated 09/21/2018; Chest Single Vie w dated 09/20/2018; Chest Single View dated 09/19/2018 FINDINGS: Portable technique limits examination quality. Left-sided pigtail chest tube is in place. Small left pneumothorax has reduced in size since comparat [place] study, now estimated at 5-10% of total lung volume. Ill-defined opacities in the right lung base appears improved as well mildly. The heart is normal in size.
[2018-09-21] MEDS: SPIRONOLACTONE 25 MG TABLET PO SCH (20:51)
[2018-09-21] MEDS: ATORVASTATIN 10 MG TAB PO SCH (20:52)
--- NOTE | 2018-09-21 22:31 | OP ---
Date of Procedure: 09/21/2018 Surgeon: Ciro Tobar MD, Preoperative Diagnosis: Left pneumothorax. Postoperative Diagnosis: Left pneumothorax. Procedure Performed: Placement of an 8-[place]uean left thoracostomy tube. Anesthesia: Local with 1% lidocaine used. Estimated Blood Loss: Less than 1 cc. Specimen: None. Findings: Air bubbling from new evacuative procedure, showing a functional tube. Complications: None. Implants: An 8-[place]ue[place] thoracostomy tube placed. The patient remained in the room throughout the procedure in good condition. Procedure In Detail: After informed consent was obtained, the patient was prepped and draped in the usual sterile fashion after adequate anesthesia was achieved with 1% lidocaine in the area of the lef t chest. I had opted for a superoposterior approach from the previous thoracostomy tube placement, w hich was along the anterior axillary line at approximately the 4th to 5th interspace. I anesthetized the area with 1% lidocaine down to and including the intercostal space over the rib. I then made a small skin incision and placed the catheter with inner obturator into this space and gently guided it over the tube while withdrawing until air was appreciated bubbling through the indicator. I then ad vanced the pigtail catheter into the thoracic cavity in a superior fashion and secured it to the skin with a 2-0 nylon suture. I hooked the assembly up to the Pneumo-VAC, and air was bubbling out and t idaling appropriately, indicating a good placement and position of the chest tube. I then placed a s terile dressing over the top and hooked the patient up and secured the Pneumo-VAC at this time. The patient tolerated the procedure well without evidence of complication and remained in the room throug hout the procedure in good condition. All counts were correct at the end of the case. A stat chest x-ray will be performed now. ALYSHA/RYAN Voice ID: [id number] Report ID: [id number]
[2018-09-22] MEDS: IPRATROPIUM BROM 0.5MG/2.5ML NEB SCH ×4 (01:23→20:10)
[2018-09-22] MEDS: MORPHINE 4 MG/ML SYR IV PRN ×4 (05:47→20:56)
[2018-09-22] MEDS ORDERED: NA CHLORIDE 0.9% TOP ONE ×2 (07:00)
[2018-09-22] MEDS ORDERED: POVIDONE-IODINE 20 ML, NA CHLORIDE 0.9% 80 ML TOP ONE ×2 (07:00)
[2018-09-22] MEDS ORDERED: LIDOCAINE 2% TOP ONE ×2 (07:00)
[2018-09-22] MEDS: ARFORMOTEROL TARTRATE 15 MCG/2 ML VIAL.NEB NEB SCH ×2 (08:13→20:10)
--- NOTE | 2018-09-22 08:59 | RAD REPORT ---
EXAM DESCRIPTION: RAD - Chest Single View - 09/22/2018 6:26 am CLINICAL HISTORY: Follow for pneumothorax Chest pain. COMPARISON: Chest Single View dated 09/21/2018; Chest Single View dated 09/21/2018; Chest Single Vie w dated 09/21/2018; Chest Single View dated 09/20/2018 FINDINGS: Portable technique limits examination quality. Small bore pigtail chest tube remains in place on the left. Minimal left apical pneumothorax persists , without significant change since comparative study. Trace left pleural fluid is again noted, mildly diminished. The heart is normal in size. No displaced fractures.
[2018-09-22] MEDS: HOME MED 1 EA UNK (Magnesium Oxide [Magnesium] 250 MG) PO SCH (09:00)
[2018-09-22] MEDS: RIVAROXABAN 15 MG TABLET PO SCH (09:28)
[2018-09-22] MEDS: FOLIC ACID 1 MG TABLET PO SCH (09:28)
[2018-09-22] MEDS: ASPIRIN EC 81 MG TAB PO SCH (09:28)
[2018-09-22] MEDS: hydroCHLOROthiazide 12.5 MG CAP PO SCH (09:28)
[2018-09-22] MEDS: predniSONE 20 MG TAB PO SCH ×2 (09:28→20:48)
[2018-09-22] MEDS: VITAMIN D 1000 UNIT TAB PO SCH (09:28)
[2018-09-22] MEDS: MULTIVITAMIN TAB PO SCH (09:28)
[2018-09-22] MEDS: METOPROLOL XL 50 MG TAB PO SCH ×2 (09:28→20:49)
[2018-09-22] MEDS: GABAPENTIN 300 MG CAP PO SCH ×2 (09:28→20:49)
[2018-09-22] MEDS: AMIODARONE HCL 200 MG TAB PO SCH (09:28)
[2018-09-22] MEDS: FUROSEMIDE 40 MG TABLET PO SCH (09:34)
--- NOTE | 2018-09-22 11:47 | P.OP ---
Date of Service: 09/22/18 Findings and Operative Technique Patient is 62 years of age admitted with spontaneous pneumothorax on the left side he does have a history of COPD CT scan did not show any evidence of bullous lesions patient's chest tube was replaced yesterday After discussing with the patient iodine meds injected through the chest tube as per protocol patient tolerated the procedure very well did not experience any discomfort chest tube will be clamped for 4 hr and then and plan place on suction
--- NOTE | 2018-09-22 11:50 | P.PN ---
Subjective Date of Service: 09/22/18 Chief Complaint: Left-sided pneumothorax Subjective: Improving Patient is improving still complaining of some cough chest congestion or chest pain status post iodine pleurodesis today Review of Systems General: Weakness Respiratory: Cough, Shortness of Breath Physical Examination - Vital Signs Temperature: 97.5 F Blood Pressure: 153/76 Pulse: 75 Respirations: 18 Pulse Ox (%): 94 - Physical Exam General: Alert, Oriented x3 Respiratory: Expiratory wheezes Cardiovascular: No edema, Normal pulses Assessment & Plan - Problems (Diagnosis) (1) Pneumothorax Onset Date: 09/21/18 Current Visit: Yes Status: Acute Plan: Patient is status post iodine pleurodesis today possible removal of chest tube tomorrow Qualifiers: Pneumothorax type: spontaneous, primary Qualified Code(s): J93.11 - Primary spontaneous pneumothorax (2) COPD exacerbation Onset Date: 04/27/18 Current Visit: No Status: Acute Plan: Complaining of persistent cough congestion with productive sputum cultures are so far negative trial of Cipro patient is on maximum bronchodilator therapy possible discharge tomorrow
[2018-09-22] MEDS: CIPROFLOXACIN HCL 500 MG TAB PO SCH ×2 (12:51→20:49)
--- NOTE | 2018-09-22 15:38 | RAD REPORT ---
EXAM DESCRIPTION: RADChest Single View09/22/2018 3:28 pm CLINICAL HISTORY: Chest pain COMPARISON: September 22 FINDINGS: A left chest tube remains in place with minimal left pneumothorax unchanged. Small left pleural effusion. Mild bilateral pulmonary opacities are without significant change
--- NOTE | 2018-09-22 16:25 | P.PN ---
Subjective Date of Service: 09/22/18 Chief Complaint: Left-sided pneumothorax Subjective: Improving (patient feels better, had iodine pleurodesis today.) Physical Examination - Vital Signs Temperature: 97.5 F Blood Pressure: 153/76 Pulse: 75 Respirations: 18 Pulse Ox (%): 94 - Physical Exam General: Alert, In no apparent distress, Cooperative HEENT: Mucous membr. moist/pink Respiratory: Normal air movement (chest tube in place, has leak in tubing line) Assessment And Plan - Current Problems (Diagnosis) (1) Pneumothorax Onset Date: 09/21/18 Current Visit: Yes Status: Acute Plan: - continue chest tube on suction - seal leak in tubing line - daily chest x rays Qualifiers: Pneumothorax type: spontaneous, primary Qualified Code(s): J93.11 - Primary spontaneous pneumothorax
[2018-09-22] MEDS: HYDROCODONE/APAP 5/325 MG TAB PO PRN (18:13)
[2018-09-22] MEDS: ATORVASTATIN 10 MG TAB PO SCH (20:49)
[2018-09-22] MEDS: SPIRONOLACTONE 25 MG TABLET PO SCH (20:50)
--- NOTE | 2018-09-22 23:30 | PN ---
Date of Progress Note: 09/22/2018 Subjective: The patient had repositioning of the chest tube with excellent results. It is now fully expanded. Some drainage is present in the tube. Plan is to remove the tube in the morning and depe nding on obviously what happens, possible be just discharged. HR/MODL Voice ID: [id number] Report ID: [id number]
[2018-09-23] MEDS: MORPHINE 4 MG/ML SYR IV PRN ×2 (00:43→13:25)
[2018-09-23] MEDS: IPRATROPIUM BROM 0.5MG/2.5ML NEB SCH ×4 (02:04→20:25)
[2018-09-23] MEDS: HYDROCODONE/APAP 5/325 MG TAB PO PRN ×3 (07:39→21:05)
--- NOTE | 2018-09-23 07:54 | RAD REPORT ---
EXAM DESCRIPTION: [place] Single View09/23/2018 6:42 am CLINICAL HISTORY: Chest pain COMPARISON: September 22 FINDINGS: A left chest tube remains in place. Minimal left pneumothorax may still be present. Small left pleural effusion is suspected. Lungs appear clear of acute infiltrate
[2018-09-23] MEDS: ARFORMOTEROL TARTRATE 15 MCG/2 ML VIAL.NEB NEB SCH ×2 (08:40→20:00)
[2018-09-23] MEDS: FOLIC ACID 1 MG TABLET PO SCH (08:44)
[2018-09-23] MEDS: RIVAROXABAN 15 MG TABLET PO SCH (08:45)
[2018-09-23] MEDS: ASPIRIN EC 81 MG TAB PO SCH (08:45)
[2018-09-23] MEDS: GABAPENTIN 300 MG CAP PO SCH ×2 (08:45→21:04)
[2018-09-23] MEDS: CIPROFLOXACIN HCL 500 MG TAB PO SCH ×2 (08:45→21:04)
[2018-09-23] MEDS: hydroCHLOROthiazide 12.5 MG CAP PO SCH (08:46)
[2018-09-23] MEDS: predniSONE 20 MG TAB PO SCH ×2 (08:46→21:04)
[2018-09-23] MEDS: AMIODARONE HCL 200 MG TAB PO SCH (08:46)
[2018-09-23] MEDS: FUROSEMIDE 40 MG TABLET PO SCH (08:46)
[2018-09-23] MEDS: METOPROLOL XL 50 MG TAB PO SCH ×2 (08:46→21:03)
[2018-09-23] MEDS: MULTIVITAMIN TAB PO SCH (08:46)
[2018-09-23] MEDS: VITAMIN D 1000 UNIT TAB PO SCH (08:47)
[2018-09-23] MEDS: HOME MED 1 EA UNK (Magnesium Oxide [Magnesium] 250 MG) PO SCH (09:00)
--- NOTE | 2018-09-23 11:54 | P.PN ---
Subjective Date of Service: 09/23/18 Chief Complaint: Left-sided pneumothorax Subjective: Improving (Patient has no shortness of breath. chest tube in place) Physical Examination - Vital Signs Temperature: 97.3 F Blood Pressure: 156/74 Pulse: 75 Respirations: 16 Pulse Ox (%): 94 - Physical Exam General: Alert, In no apparent distress, Cooperative Respiratory: Clear to auscultation bilaterally, Other (chest tube in place in LEFT chest) Assessment And Plan - Current Problems (Diagnosis) (1) Pneumothorax Onset Date: 09/21/18 Current Visit: Yes Status: Acute Plan: - chest tube removed - chest x ray in 4 hours if stable may DC home from surgical standpoint Qualifiers: Pneumothorax type: spontaneous, primary Qualified Code(s): J93.11 - Primary spontaneous pneumothorax
--- NOTE | 2018-09-23 12:38 | P.PN ---
Subjective Date of Service: 09/23/18 Chief Complaint: Left-sided pneumothorax Patient is still complaining of shortness of breath chest tube was not ideal in the jainism pneumothorax on the chest x-ray no air leak Review of Systems General: Weakness Respiratory: Cough, Shortness of Breath Physical Examination - Vital Signs Temperature: 97.3 F Blood Pressure: 156/74 Pulse: 75 Respirations: 16 Pulse Ox (%): 94 - Physical Exam General: Alert, Oriented x3, Mild distress Respiratory: Clear to auscultation bilaterally, Diminished Assessment & Plan - Problems (Diagnosis) (1) Pneumothorax Onset Date: 09/21/18 Current Visit: Yes Status: Acute Plan: Patient is status post pleurodesis chest tube removed Qualifiers: Pneumothorax type: spontaneous, primary Qualified Code(s): J93.11 - Primary spontaneous pneumothorax (2) COPD exacerbation Onset Date: 04/27/18 Current Visit: No Status: Acute Plan: Continue with present medications possible discharge tomorrow ambulate
--- NOTE | 2018-09-23 14:55 | RAD REPORT ---
EXAM DESCRIPTION: RAD - Chest Pa And Lat (2 Views) - 09/23/2018 2:43 pm CLINICAL HISTORY: 4 hours post chest tube removal Chest pain. COMPARISON: Chest Single View dated 09/23/2018; Chest Single View dated 09/22/2018; Chest Single Vie w dated 09/22/2018; Chest Single View dated 09/21/2018 FINDINGS: Emphysematous changes are present throughout the lungs with a small left pleural effusion noted. Previously noted small bore left-sided chest tube has been removed. Minimal persistent left ap ical pneumothorax is likely. The heart is normal in size.
--- NOTE | 2018-09-23 16:44 | P.PN ---
Subjective Date of Service: 09/23/18 Chief Complaint: Left-sided pneumothorax Patient seen and examined at bedside with RN. Chart reviewed. Case discussed with general surgery and pulmonology at this time. Patient is scheduled to have his chest tube removed today Review of Systems 10-point ROS is otherwise unremarkable Physical Examination - Vital Signs Temperature: 97.3 F Blood Pressure: 156/74 Pulse: 75 Respirations: 16 Pulse Ox (%): 94 - Physical Exam General: Alert, In no apparent distress HEENT: Atraumatic, PERRLA, EOMI Neck: Supple, JVD not distended Respiratory: Clear to auscultation bilaterally, Normal air movement Cardiovascular: Regular rate/rhythm, Normal S1 S2 Gastrointestinal: Normal bowel sounds, No tenderness Musculoskeletal: No tenderness Integumentary: No rashes Neurological: Normal speech, Normal tone, Normal affect Lymphatics: No axilla or inguinal lymphadenopathy - Studies Medications List Reviewed: Yes Assessment And Plan - Current Problems (Diagnosis) (1) Pneumothorax Onset Date: 09/21/18 Current Visit: Yes Status: Acute Plan: Pneumothorax with a left-sided chest tube in place. -chest x-ray this morning with no pneumothorax noted. -chest tube with no air leak and thus will be discontinued today. -will follow up with patient post chest tube removal. If chest tube is removed will follow up with chest x-ray in 4 hr. -Anticipate discharge in 24-48 hr post removal of his chest tube Qualifiers: Pneumothorax type: spontaneous, primary Qualified Code(s): J93.11 - Primary spontaneous pneumothorax (2) COPD exacerbation Onset Date: 04/27/18 Current Visit: No Status: Acute Plan: Continue with duo nebs, steroids, oxygen (3) Chronic renal disease Current Visit: No Status: Chronic Qualifiers: Chronic kidney disease stage: stage 3 (moderate) Qualified Code(s): N18.3 - Chronic kidney disease, stage 3 (moderate) (4) Atrial fibrillation Current Visit: No Status: Chronic Qualifiers: Atrial fibrillation type: chronic Qualified Code(s): I48.2 - Chronic atrial fibrillation (5) Chronic anticoagulation Current Visit: No Status: Chronic (6) History of lung cancer Onset Date: 04/27/18 Current Visit: No Status: Chronic (7) Hyperlipidemia Current Visit: No Status: Chronic Qualifiers: Hyperlipidemia type: unspecified Qualified Code(s): E78.5 - Hyperlipidemia , unspecified (8) Hypertension Current Visit: No Status: Chronic Qualifiers: Hypertension type: essential hypertension Qualified Code(s): I10 - Essential (primary) hypertension (9) Oxygen dependent Current Visit: No Status: Chronic Discharge Plan: Home Plan to discharge in: 24 Hours - Code Status/Comfort Care Code Status Assessed: Yes Critical Care: No
[2018-09-23] MEDS: ATORVASTATIN 10 MG TAB PO SCH (21:03)
[2018-09-23] MEDS: SPIRONOLACTONE 25 MG TABLET PO SCH (21:04)
[2018-09-24] MEDS: IPRATROPIUM BROM 0.5MG/2.5ML NEB SCH ×2 (01:00→09:10)
[2018-09-24] MEDS: FOLIC ACID 1 MG TABLET PO SCH (08:58)
[2018-09-24] MEDS: GABAPENTIN 300 MG CAP PO SCH (08:58)
[2018-09-24] MEDS: FUROSEMIDE 40 MG TABLET PO SCH (08:59)
[2018-09-24] MEDS: AMIODARONE HCL 200 MG TAB PO SCH (08:59)
[2018-09-24] MEDS: HYDROCODONE/APAP 5/325 MG TAB PO PRN (08:59)
[2018-09-24] MEDS: METOPROLOL XL 50 MG TAB PO SCH (09:00)
[2018-09-24] MEDS: predniSONE 20 MG TAB PO SCH (09:00)
[2018-09-24] MEDS: CIPROFLOXACIN HCL 500 MG TAB PO SCH (09:00)
[2018-09-24] MEDS: MULTIVITAMIN TAB PO SCH (09:00)
[2018-09-24] MEDS: HOME MED 1 EA UNK (Magnesium Oxide [Magnesium] 250 MG) PO SCH (09:00)
[2018-09-24] MEDS: RIVAROXABAN 15 MG TABLET PO SCH (09:01)
[2018-09-24] MEDS: hydroCHLOROthiazide 12.5 MG CAP PO SCH (09:01)
[2018-09-24] MEDS: ASPIRIN EC 81 MG TAB PO SCH (09:01)
[2018-09-24] MEDS: VITAMIN D 1000 UNIT TAB PO SCH (09:01)
[2018-09-24] MEDS: ARFORMOTEROL TARTRATE 15 MCG/2 ML VIAL.NEB NEB SCH (09:10)
--- NOTE | 2018-09-24 10:27 | P.PN ---
Subjective Date of Service: 09/24/18 Chief Complaint: Left-sided pneumothorax Subjective: Improving (Patient had some SOB yesterday, but feels better today) Physical Examination - Vital Signs Temperature: 98 F Blood Pressure: 185/83 Pulse: 74 Respirations: 18 Pulse Ox (%): 91 - Physical Exam General: Alert, In no apparent distress, Cooperative Respiratory: Normal air movement - Studies Medications List Reviewed: Yes Assessment And Plan - Current Problems (Diagnosis) (1) Pneumothorax Onset Date: 09/21/18 Current Visit: Yes Status: Acute Plan: - chest tube removed - chest x ray now - ambulatory SPO2 monitoring - patient has home oxygen - consider acetylcysteine Qualifiers: Pneumothorax type: spontaneous, primary Qualified Code(s): J93.11 - Primary spontaneous pneumothorax
--- NOTE | 2018-09-24 10:42 | P.PN ---
Subjective Date of Service: 09/24/18 Chief Complaint: Left-sided pneumothorax Patient is very anxious apprehensive still short of breath coughing up some productive sputum Review of Systems General: Weakness Respiratory: Cough, Shortness of Breath Physical Examination - Vital Signs Temperature: 98 F Blood Pressure: 185/83 Pulse: 74 Respirations: 18 Pulse Ox (%): 91 - Physical Exam General: Alert, Oriented x3 Neck: Supple Respiratory: Diminished, Expiratory wheezes Cardiovascular: No edema, Regular rate/rhythm - Studies Microbiology Data (last 24 hrs): 09/19/18 10:20 Blood - Blood Aerobic Blood Culture - Final No growth in 5 days. 09/19/18 10:20 Blood - Blood Anaerobic Blood Culture - Final No growth in 5 days. Medications List Reviewed: Yes Assessment & Plan - Problems (Diagnosis) (1) Pneumothorax Onset Date: 09/21/18 Current Visit: Yes Status: Acute Plan: Patient's chest tube was removed no evidence of pneumothorax on the chest x-ray will await final radiology report patient is very anxious Qualifiers: Pneumothorax type: spontaneous, primary Qualified Code(s): J93.11 - Primary spontaneous pneumothorax (2) COPD exacerbation Onset Date: 04/27/18 Current Visit: No Status: Acute Plan: Continues to be short of breath, coughing up some productive sputum cultures are negative patient can be discharged home on prednisone 10 mg twice a day continue follows up with me next week in [id number] mg once a day
--- NOTE | 2018-09-24 12:08 | RAD REPORT ---
EXAM DESCRIPTION: RAD - Chest Single View - 09/24/2018 9:59 am CLINICAL HISTORY: shortness of breath Chest pain. COMPARISON: Chest Pa And Lat (2 Views) dated 09/23/2018; Chest Single View dated 09/23/2018; Chest S brock View dated 09/22/2018; Chest Single View dated 09/22/2018 FINDINGS: Portable technique limits examination quality. Emphysematous changes are present throughout the lungs. A moderate left pleural effusion is present, slightly increased in size since comparative study. The heart is normal in size. No displaced fractur es.
--- NOTE | 2018-09-24 13:23 | P.DS ---
Admission Date: 09/19/18 Discharge Date: 09/24/18 Disposition: ROUTINE DISCHARGE Discharge Condition: GOOD Reason for Admission: Left-sided pneumothorax Consultations: Gen Surgery Pulmonology - Problems (1) Pneumothorax Onset Date: 09/21/18 Current Visit: Yes Status: Acute Qualifiers: Pneumothorax type: spontaneous, primary Qualified Code(s): J93.11 - Primary spontaneous pneumothorax (2) COPD exacerbation Onset Date: 04/27/18 Current Visit: No Status: Acute (3) Chronic renal disease Current Visit: No Status: Chronic Qualifiers: Chronic kidney disease stage: stage 3 (moderate) Qualified Code(s): N18.3 - Chronic kidney disease, stage 3 (moderate) (4) Atrial fibrillation Current Visit: No Status: Chronic Qualifiers: Atrial fibrillation type: chronic Qualified Code(s): I48.2 - Chronic atrial fibrillation (5) Chronic anticoagulation Current Visit: No Status: Chronic (6) History of lung cancer Onset Date: 04/27/18 Current Visit: No Status: Chronic (7) Hyperlipidemia Current Visit: No Status: Chronic Qualifiers: Hyperlipidemia type: unspecified Qualified Code(s): E78.5 - Hyperlipidemia , unspecified (8) Hypertension Current Visit: No Status: Chronic Qualifiers: Hypertension type: essential hypertension Qualified Code(s): I10 - Essential (primary) hypertension (9) Oxygen dependent Current Visit: No Status: Chronic Brief History of Present Illness: Patient is 62 years of age well known to me currently [facility] developed sudden onset of shortness of breath admitted from the emergency room with a significant left-sided pneumothorax has subsequently a chest tube was inserted in the emergency room his lung is not fully inflated does not have any air leak still feels very short of breath Hospital Course: Overall during the hospital stay patient remained stable Patient was initially admitted to the hospital for left-sided pneumothorax. Patient does have extensive lung disease along with cardiac disease. Patient had a chest tube placed to the ER with general surgery. Patient had marked resolution of his pneumothorax and was doing well overall. However day 3 patient started having some leakage and his chest tube was repositioned after which she has been doing well overall as well. Patient's chest tube was removed yesterday. Repeat chest x-ray did not have any pneumothorax noted. Patient this morning then was discharged home under stable condition after being observed for 24 hr. 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 Patient was asked to continue taking prednisone 10 mg b.i.d. along with theophylline. Patient's chronic condition remained stable while here in the hospital and patient was discharged home under stable condition Vital Signs/Physical Exam: Temp Pulse Resp BP Pulse Ox 97.9 F 82 18 161/83 H 90 L 09/24/18 12:00 09/24/18 12:00 09/24/18 12:00 09/24/18 12:00 09/24/18 12:00 General: Alert, In no apparent distress HEENT: Atraumatic, PERRLA, EOMI Neck: Supple, JVD not distended Respiratory: Clear to auscultation bilaterally, Normal air movement Cardiovascular: Regular rate/rhythm, Normal S1 S2 Gastrointestinal: Normal bowel sounds, No tenderness Musculoskeletal: No tenderness Integumentary: No rashes Neurological: Normal speech, Normal tone, Normal affect Lymphatics: No axilla or inguinal lymphadenopathy Laboratory Data at Discharge: WBC 6.1 K/uL (4.3-10.9) D 09/20/18 04:43 Hgb 12.0 g/dL (13.6-17.9) L 09/20/18 04:43 Hct 36.1 % (39.6-49.0) L 09/20/18 04:43 Plt Count 234 K/uL (152-406) 09/20/18 04:43 PT 29.3 SECONDS (9.5-12.5) H 09/19/18 10:55 INR 2.46 09/19/18 10:55 Sodium 135 mmol/L (136-145) L 09/20/18 04:43 Potassium 3.9 mmol/L (3.5-5.1) 09/20/18 04:43 BUN 40 mg/dL (7-18) H 09/20/18 04:43 Creatinine 2.30 mg/dL (0.55-1.3) H 09/20/18 04:43 Glucose 121 mg/dL (74-106) H 09/20/18 04:43 Magnesium 2.4 mg/dL (1.8-2.4) 09/19/18 10:55 Total Bilirubin 0.5 mg/dL (0.2-1.0) 09/19/18 10:55 AST 19 U/L (15-37) 09/19/18 10:55 ALT 26 U/L (12-78) 09/19/18 10:55 Alkaline Phosphatase 56 U/L (45-117) 09/19/18 10:55 Troponin I < 0.02 ng/mL (0.0-0.045) 09/19/18 20:09 Home Medications: Acetaminophen [Pain Reliever] 2 tab PO PRN PRN 04/26/18 Albuterol Sulfate [Proair Hfa] 2 puff IH Q4HP PRN 04/26/18 Aspirin [Adult Aspirin] 1 tab PO DAILY 04/26/18 Cholecalciferol (Vitamin D3) [Vitamin D3] 1 cap PO DAILY 04/26/18 Folic Acid 3 tab PO DAILY 04/26/18 Gabapentin [Neurontin*] 300 mg PO BID 04/26/18 Magnesium Oxide [Magnesium] 250 mg PO DAILY 04/26/18 Multivitamin [One-Daily Multi-Vitamin] 1 tab PO DAILY 04/26/18 Perforomist 20 mcg NEB BID 04/26/18 Rivaroxaban [Xarelto*] 1 tab PO DAILY 04/26/18 Simvastatin 20 mg PO BEDTIME 04/26/18 Spironolact/Hydrochlorothiazid [Spironolactone-Hctz 25-25 Tab] 12.5 mg PO DAILY 04/26/18 Albuterol Ipratropium 2.5 mg NEB Q6HP PRN 04/27/18 Amiodarone HCl [Cordarone Tab] 200 mg PO DAILY 09/19/18 Cyclobenzaprine [Flexeril] 5 mg PO PRN 09/19/18 Furosemide 80 mg PO DAILY 09/19/18 Prednisone [Steven] 5 mg PO DAILY 09/19/18 Tiotropium [Spiriva Handihaler] 18 mcg IH DAILY 09/19/18 Metoprolol Succinate [Toprol Xl*] 50 mg PO 0900 09/21/18 Metoprolol Succinate [Toprol Xl] 100 mg PO BEDTIME 09/21/18 Theophylline Anhydrous [Vipul-24] 200 mg PO DAILY #30 cap.er.24h 09/24/18 New Medications: Theophylline Anhydrous [Vipul-24] 200 mg PO DAILY #30 cap.er.24h Patient Discharge Instructions: Patient has been instructed to by a flutter valve at [facility] and using 3- 4 times a day I have faxed in a prescription for 3 off and once a day. And he needs to increase his prednisone 10 mg twice a day to follow up with Dr Nunez next week Diet: Regular Activity: Ad rg Followup: Tomas Sawant MD [ACTIVE - CAN ADMIT] - 1 Week (Call to schedule an appointment) Ciro Tobar MD [ACTIVE - CAN ADMIT] - 1-2 Weeks (Call to schedule an appointment) Danial Wilkins MD [Primary Care Provider] - 1-2 Weeks (Call to schedule an appointment)
== END 2018-09-24 14:06 | disposition home or self-care (01) | DRG 200 ==
LOC: ER 09:46 → ERHOLD 12:07 → 4TH 13:13
PROVIDERS: ADMIT Family Medicine; ATTEND Family Medicine
PROC: 0W9B30Z Drainage of Left Pleural Cavity with Drainage Device, Percutaneous Approach (ICD-10-PCS; 2018-09-19)
PROC: 0W9B30Z Drainage of Left Pleural Cavity with Drainage Device, Percutaneous Approach (ICD-10-PCS; principal; 2018-09-21)
DX: J93.11 Primary spontaneous pneumothorax (principal); J44.1 Chronic obstructive pulmonary disease with (acute) exacerbation; I12.9 Hypertensive chronic kidney disease with stage 1 through stage 4 chronic kidney disease, or unspecified chronic kidney disease; N18.3 Chronic kidney disease, stage 3 (moderate); I48.91 Unspecified atrial fibrillation; Z79.01 Long term (current) use of anticoagulants; Z85.118 Personal history of other malignant neoplasm of bronchus and lung; I25.10 Atherosclerotic heart disease of native coronary artery without angina pectoris; E78.5 Hyperlipidemia, unspecified; Z99.81 Dependence on supplemental oxygen
CPT/HCPCS: 36415; 71045; 71046; 71250; 80048; 80076; 83735; 83880; 84484; 85025; 85610; 87040; 87070; 87205; 87804; 94760; 96374; 99285; J3010; J7512; J7605

== ENCOUNTER 2018-10-27 08:16 | Emergency (ER) | payer BC, OTHER ==
--- OUTSIDE RECORDS SUMMARY | 2018-10-27 08:18 | XMS REPORT | Clinical Summary ---
:1955 Author Organization [facility] Address [address] [place] [address] Care Team Providers Name Role Phone Danial [...] Coordination Note Referring physician is Valery Bucio [address] [place] [id number] P: [phone] F: [phone] Problem Noted Date Malignant neoplasm of upper [...] Last Done Comments COLON CANCER SCREENING 2003 SHINGLES VACCINES (1 of 2) 2003 INFLUENZA VACCINE 06/03/2018 PNEUMOCOCCAL POLYSACCHARIDE VACCINE AGE 65 AND OVER 2018 PNEUMOCOCCAL-13 2018 Implants Implanted Type Area Insole Coverer Device Shelf Model / Identifier Expiration Serial / Date Lot Hemostat Absrbl Oxidized Knttd 3x4in Cllos Surgicel Nu-Knit - [id number] Surgical N/A: N/A [facility] 03/02/2022 1943 / Implanted: 07/15/2017 (Quantity not on file) Implants; / Expanders; [id number] Extenders; Surgical Wires Hemostat Absrbl Oxidized Knttd 3x4in Cllos Surgicel Nu-Knit - [id number] Surgical N/A: N/A [facility] 03/02/2022 1945 / Implanted: 07/15/2017 (Quantity not on file) Implants; / Expanders; [id number] Extenders; Surgical Wires Hemostat Absrbl Oxidized Knttd 3x4in Cllos Surgicel Nu-Knit - [id number] Surgical N/A: N/A [facility] 03/02/2022 1945 / Implanted: 07/15/2017 (Quantity not on file) Implants; / Expanders; [id number] Extenders; Surgical Wires Hemostat Absrbl Oxidized Knttd 3x4in Cllos Surgicel Nu-Knit - [id number] Surgical N/A: N/A [facility] 03/02/2022 1943 / Implanted: 07/15/2017 (Quantity not on file) Implants; / Expanders; [id number] Extenders; Surgical Wires Hemostat Absrbl Oxidized Knttd 3x4in Cllos Surgicel Nu-Knit - [id number] Surgical N/A: N/A [facility] 03/02/2022 1945 / Implanted: 07/15/2017 (Quantity not on file) Implants; / Expanders; [id number] Extenders; Surgical Wires Kit Selnt Plrl Air Leak 4ml Strl Progel - [id number] Surgical N/A: N/A [employer] 07/04/2018 [id number] / Implanted: Qty: 1 on 07/15/2017 by Blu Lay MD Implants; / Expanders; Extenders; Surgical Wires Matrix [facility] Floseal 10ml W/ Humn F2 - [id number] Surgical N/A: N/A [employer] [id number] / Implanted: 07/15/2017 (Quantity not on file) Implants; BIOSCIENCE / Expanders; Extenders; Surgical Wires Kit Selnt Plrl Air Leak 4ml Strl Progel - [id number] Surgical N/A: N/A [employer] [id number] / Implanted: 07/15/2017 (Quantity not on file) Implants; / Expanders; Extenders; Surgical Wires Results Not on fileafter 10/26/2017 Insurance Payer Benefit Plan / Group Subscriber ID Type Phone Address [facility] xxxxxxxxxxxx PPO (Home) [phone] [place], [place] (Work) [phone] Advance Directives Patient has advance care planning documents on file. For more information, please contact:Marco A Kimball[address] [place] [address]
[2018-10-27 09:05] LABS: Urine Blood NEGATIVE (NEG); Urine Glucose NEGATIVE (NEG); Urine Protein NEGATIVE (NEG); Urine Specific Gravity 1.015 (1.005-1.030)
[2018-10-27 09:28] LABS: Absolute Lymphocytes (CBC) 0.2 K/uL (0.7-4.9); Absolute Monocytes 0.9 K/uL (0.1-1.3); Absolute Neutrophil 14.7 K/uL (1.8-8.0); Basophils % 0.2 % (0-1.3); Eosinophils % 0.6 % (0-4.4); Hematocrit 38.1 % (39.6-49.0); Lymphocytes % 1.3 % (15.3-44.8); MPV 8.3 fL (7.6-11.3); Monocytes % 5.7 % (3.3-12.3); RBC Red Blood Cell Count 4.26 M/uL (4.33-5.43)
[2018-10-27] MEDS ORDERED: ALBUTEROL 2.5 MG/3 ML NEB SOL ONE (09:30)
[2018-10-27] MEDS ORDERED: Levofloxacin 750mg IV 750 MG/150 ML BAG IV ONE (09:30)
[2018-10-27] MEDS ORDERED: NA CHLORIDE 0.9% 1,000 ML ONE (09:30)
[2018-10-27] MEDS ORDERED: LEVALBUTEROL 1.25 MG/3 ML NEB ONE (09:30)
[2018-10-27] MEDS ORDERED: METHYLPREDNISOLONE 125 MG INJ ONE (09:30)
[2018-10-27] MEDS ORDERED: IPRATROPIUM BROM 0.5MG/2.5ML ONE (09:30)
[2018-10-27 09:32] LABS: Protime INR 1.86
[2018-10-27 09:44] LABS: Albumin 3.8 g/dL (3.4-5.0); Bilirubin Direct 0.1 mg/dL (0-0.2); Bilirubin Total 0.4 mg/dL (0.2-1.0); CKMB Creatine Kinase MB 2.8 ng/mL (0.3-3.6); Magnesium 2.2 mg/dL (1.8-2.4); Potassium 3.9 mmol/L (3.5-5.1); Protein, Total 7.5 g/dL (6.4-8.2); Troponin (Emerg Dept Use Only) 0.02 ng/mL (0.0-0.045)
--- NOTE | 2018-10-27 10:06 | RAD REPORT ---
EXAM DESCRIPTION: JOYAChest Single View10/27/2018 9:13 am CLINICAL HISTORY: sob COMPARISON: October 05 FINDINGS: Moderate left pneumothorax is present. The pneumothorax has enlarged since the prior exam . Lungs appear clear of acute infiltrate. The heart is normal size IMPRESSION: Moderate left pneumothorax. Dr. Blackwood of the emergency room was notified at 9:55 a.m. on October 27, 2018
[2018-10-27] MEDS ORDERED: HYDROMORPHONE HCL 1 MG/ML INJ ONE (11:02)
[2018-10-27] MEDS ORDERED: ONDANSETRON 4 MG/2 ML VIAL ONE ×3 (11:03→16:07)
[2018-10-27] MEDS ORDERED: LIDOCAINE 1% MPF 30 ML VIAL ONE (11:04)
--- NOTE | 2018-10-27 12:01 | RAD REPORT ---
EXAM DESCRIPTION: RADChest Single View10/27/2018 11:46 am CLINICAL HISTORY: Shortness of breath COMPARISON: October 27 FINDINGS: Left chest tube has been placed with decrease in the size of the left pneumothorax which is small
--- NOTE | 2018-10-27 12:06 | ER ---
Nurse's Notes [facility] Name: Angelo Narvaez Age: 63 yrs Sex: Male : 1955 Arrival Date: 10/27/2018 Time: 08:17 Bed 3 Private MD: Tomas Sawant K; Danial Wilkins Diagnosis: Pneumothorax, unspecified;Chronic obstructive pulmonary disease with (acute) exacerbation Presentation: 10/27 08:30 Presenting complaint: Patient states: pt reports shortness of breath and labored sg breathing that started last night, reports using o2 on NC at 2 lpm, but having to have it on 4 lpm to maintain sats at 92 percent, reports swelling to hands arms legs and face but has been taking his lasix as perscribed. Transition of care: patient was not received from another setting of care. Onset of symptoms was October 27, 2018. Risk Assessment: Do you want to hurt yourself or someone else? Patient reports no desire to harm self or others. Initial Sepsis Screen: Does the patient meet any 2 criteria? RR > 20 per min. HR > 90 bpm. Yes Does the patient have a suspected source of infection? Yes: Productive cough/pneumonia. Care prior to arrival: None. 08:30 Method Of Arrival: Wheelchair sg 08:38 Acuity: STEPHIE 2 sg Triage Assessment: 21:21 Respiratory: Onset: The symptoms/episode began/occurred. ak1 Historical: - Allergies: 08:44 No Known Allergies; sg - PMHx: 08:44 a fib; COPD; HTN; Lung Cancer; Pneumothorax; sg - Immunization history:: Adult Immunizations up to date. - Social history:: Smoking status: Patient/guardian denies using tobacco, Patient/guardian denies using alcohol, street drugs, The patient lives with family. - Ebola Screening: : Patient negative for fever greater than or equal to 101.5 degrees Fahrenheit, and additional compatible Ebola Virus Disease symptoms Patient denies exposure to infectious person Patient denies travel to an Ebola-affected area in the 21 days before illness onset No symptoms or risks identified at this time. - Family history:: not pertinent. Screenin:45 Abuse screen: Denies threats or abuse. Denies injuries from another. Nutritional sg screening: No deficits noted. Tuberculosis screening: No symptoms or risk factors identified. Never had TB. Fall Risk None identified. Assessment: 08:46 General: Appears uncomfortable, ill, well groomed, well developed, well nourished, sg Behavior is cooperative, appropriate for age. Pain: Denies pain. Neuro: Level of Consciousness is awake, alert, obeys commands, Oriented to person, place, time, situation, Sueding Machine Operator are equal bilaterally Moves all extremities. Full function Gait is steady, Speech is normal, Facial symmetry appears normal, Pupils are PERRLA. Cardiovascular: Heart tones S1 S2 present Capillary refill is brisk in bilateral fingers Patient's skin is warm and dry. Rhythm is sinus tachycardia Chest pain is denied. Respiratory: Reports shortness of breath at rest labored breathing Airway is patent Respiratory effort is even, labored, shallow, using tripod position, Respiratory pattern is symmetrical, tachypnea Breath sounds are diminished in left posterior lower lobe, right posterior middle lobe and right posterior lower lobe Breath sounds with wheezes the patient has moderate shortness of breath. GI: No signs and/or symptoms were reported involving the gastrointestinal system. : No signs and/or symptoms were reported regarding the genitourinary system. EENT: No signs and/or symptoms were reported regarding the EENT system. Derm: Skin is intact, is thin, Skin is dry, Skin is pale, Skin temperature is warm. Musculoskeletal: No signs and/or symptoms reported regarding the musculoskeletal system. 10:00 Reassessment: Patient appears in no apparent distress at this time. Patient and/or sg family updated on plan of care and expected duration. Pain level reassessed. Patient is alert, oriented x 3, equal unlabored respirations, skin warm/dry/pink. awaiting radiology results at this time Patient states symptoms have not improved. 10:42 Reassessment: pt transported via stretcher with monitoring and o2 in place to ER bed 3 sg for insertion of chest tube, pt and pt family stated understanding, pt in stable condition at this time, report given to Tomeka RN, Michi RN. 10:46 General: Appears. General: Appears uncomfortable, Behavior is calm, cooperative. Pain: hb Pain currently is 9 out of 10 on a pain scale. Neuro: Level of Consciousness is awake, alert, obeys commands, Oriented to person, place, time, situation. Respiratory: Airway is patent Respiratory effort is even, labored, Respiratory pattern is symmetrical, tachypnea Breath sounds are diminished in left posterior lower lobe. GI: No signs and/or symptoms were reported involving the gastrointestinal system. : No signs and/or symptoms were reported regarding the genitourinary system. EENT: No signs and/or symptoms were reported regarding the EENT system. Derm: Skin is intact, Skin is dry, Skin is pale, Skin temperature is warm. Musculoskeletal: No signs and/or symptoms reported regarding the musculoskeletal system. 10:55 Reassessment: Dr. Blackwood at bedside for chest tube placement. 11:45 Reassessment: Chest tube iin place, pt tolerated well. Reports pain 12/13. NAD. at bedside. 12:30 Reassessment: Patient appears in no apparent distress at this time. Patient and/or family updated on plan of care and expected duration. Pain level reassessed. Patient is alert, oriented x 3, equal unlabored respirations, skin warm/dry/pink. 13:30 Reassessment: Patient appears in no apparent distress at this time. No changes from hb previously documented assessment. Patient and/or family updated on plan of care and expected duration. Pain level reassessed. Patient is alert, oriented x 3, equal unlabored respirations, skin warm/dry/pink. 14:30 Reassessment: Patient appears in no apparent distress at this time. No changes from hb previously documented assessment. Patient and/or family updated on plan of care and expected duration. Pain level reassessed. Patient is alert, oriented x 3, equal unlabored respirations, skin warm/dry/pink. 15:30 Reassessment: Patient appears in no apparent distress at this time. Patient and/or family updated on plan of care and expected duration. Pain level reassessed. Patient is alert, oriented x 3, equal unlabored respirations, skin warm/dry/pink. 15:45 Reassessment: Report called to Daiana ZARAGOZA at [facility]. 16:30 Reassessment: Patient appears in no apparent distress at this time. No changes from hb previously documented assessment. Patient and/or family updated on plan of care and expected duration. Pain level reassessed. Patient is alert, oriented x 3, equal unlabored respirations, skin warm/dry/pink. 17:26 Reassessment: Patient appears in no apparent distress at this time. No changes from hb previously documented assessment. Patient and/or family updated on plan of care and expected duration. Pain level reassessed. Patient is alert, oriented x 3, equal unlabored respirations, skin warm/dry/pink. 18:27 Reassessment: Patient appears in no apparent distress at this time. No changes from hb previously documented assessment. Patient and/or family updated on plan of care and expected duration. Pain level reassessed. Patient is alert, oriented x 3, equal unlabored respirations, skin warm/dry/pink. 19:47 Reassessment: Awaiting transport for transfer. tl2 19:51 Reassessment: Spoke with Kaylin at [facility] and was told that their personnel should aa1 be here in [address] [facility]. 21:26 Reassessment: Patient appears in no apparent distress at this time. No changes from ak1 previously documented assessment. chest tube remained in place. report given to EMS Patient states feeling better. Vital Signs: 08:41 BP 164 / 97; Pulse 118; Resp 46 S; Temp 99.6; Pulse Ox 94% on 4 lpm NC; Pain 2/10; sg 09:30 BP 162 / 87; Pulse 113; Resp 36; Pulse Ox 97% on 100% Nebulizer Mask; sg 10:46 BP 156 / 88; Pulse 112; Resp 24; Pulse Ox 97% on Nebulizer Mask; Pain 9/10; hb 11:12 BP 168 / 90; Pulse 107; Resp 23; Pulse Ox 98% on Nebulizer Mask; mh5 12:02 BP 131 / 77; Pulse 97; Resp 20; Pulse Ox 96% on 3 lpm NC; Pain 2/10; hb 13:00 BP 136 / 72; Pulse 96; Resp 19; Pulse Ox 97% on 3 lpm NC; hb 14:00 BP 114 / 76; Pulse 92; Resp 21; Pulse Ox 98% on 3 lpm NC; hb 15:00 BP 103 / 62; Pulse 91; Resp 18; Pulse Ox 98% on 3 lpm NC; hb 16:00 BP 121 / 65; Pulse 88; Resp 16; Pulse Ox 96% on 3 lpm NC; hb 17:00 BP 103 / 77; Pulse 86; Resp 15; Pulse Ox 96% on 3 lpm NC; hb 18:00 BP 108 / 71; Pulse 87; Resp 16; Pulse Ox 96% on 3 lpm NC; hb 19:46 BP 140 / 72; Pulse 95; Resp 24; Temp 98.1(O); Pulse Ox 97% on R/A; tl2 21:20 BP 136 / 75; Pulse 91; Resp 22; Temp 98.1; Pulse Ox 97% on R/A; ak1 ED Course: 08:17 Patient arrived in ED. as 08:18 Danial Wilkins MD is Private Physician. as 08:20 Maycol Marino, RN is Primary Nurse. sg 08:23 Brenda Blackwood MD is Attending Physician. ma2 08:30 Arm band placed on. sg 08:30 Patient has correct armband on for positive identification. Placed in gown. Bed in low sg position. Call light in reach. Side rails up X2. nuclear monitoring technician on. Pulse ox on. NIBP on. 08:30 First set of blood cultures drawn by me. Inserted saline lock: 20 gauge in left sg antecubital area, using aseptic technique. Blood collected. 08:41 Triage completed. sg 08:44 Tomas Sawant MD is Private Physician. sg 08:58 EKG done, by weld technician. reviewed by Brenda Blackwood MD. at1 09:00 Second set of blood cultures drawn by me. sg 09:15 XRAY CXR (1 view) In Process Unspecified. EDMS 10:25 Consent for conscious sedation explained by physician, for precaution. Procedure sg consent explained by physician, signed by patient, Chest Tube Insertion. 11:36 Tomeka Viera, RN is Primary Nurse. hb 11:46 XRAY Chest (1 view) In Process Unspecified. EDMS 12:05 Yonis Manning MD is Hospitalizing Provider. ma2 21:20 No provider procedures requiring assistance completed. Patient admitted, IV remains in ak1 place. Administered Medications: 09:39 Drug: SOLU-Medrol 125 mg Route: IVP; Site: left antecubital; sg 18:25 Follow up: Response: No adverse reaction hb 09:39 Drug: LevaQUIN 750 mg Volume: 150 ml; Route: IVPB; Infused Over: 90 mins; Site: left sg antecubital; 11:30 Follow up: Response: No adverse reaction; IV Status: Completed infusion hb 09:39 Drug: NS 0.9% 500 ml Route: IV; Rate: 1 bolus; Site: left antecubital; sg 10:46 Follow up: Response: No adverse reaction; IV Status: Completed infusion hb 09:40 Drug: Xopenex 1.25 mg Route: Inhalation; sg 09:40 Drug: Albuterol 2.5 mg Route: Inhalation; sg 09:40 Drug: AtroVENT Aerosol 0.5 mg Route: Inhalation; sg 13:07 Drug: Zofran 4 mg Route: IVP; Site: left antecubital; hj 14:30 Follow up: Response: No adverse reaction hb 13:08 Drug: morphine 4 mg Route: IVP; Site: left antecubital; hj 13:40 Follow up: Response: No adverse reaction hb 16:02 Drug: Zofran 4 mg Route: IVP; Site: left antecubital; hb 16:35 Follow up: Response: No adverse reaction hb 16:02 Drug: morphine 4 mg Route: IVP; Site: left antecubital; hb 16:35 Follow up: Response: No adverse reaction; Pain is decreased hb 20:25 Drug: fentaNYL (PF) 25 mcg Route: IVP; Site: left antecubital; ak1 21:19 Follow up: Response: No adverse reaction ak1 Outcome: 12:06 Decision to Hospitalize by Provider. ma2 12:57 ER care complete, transfer ordered by . ma2 21:21 Transferred by ground EMS to [facility], Transfer form completed. X-rays ak1 sent w/ patient. 21:21 Condition: good 21:21 Instructed on the need for transfer. 21:27 Patient left the ED. ak1 Signatures: Dispatcher [employer] EDMS Maycol Marino RN RN sg Kern, Alissa RN RN Nathalie Brar Amanda, beet topper EKG Tat1 Claire Thompson RN RN ak1 Michi Grey RN RN hj Baxter, Heather, RN RN hb Knox, Taylor, RN RN 2 Regine Abbott [facility] Brenda Blackwood MD MD ma2 Corrections: (The following items were deleted from the chart) 11:18 08:46 Respiratory: Reports shortness of breath at rest labored breathing Airway is sg patent Respiratory effort is even, labored, shallow, using tripod position, Respiratory pattern is symmetrical, tachypnea Breath sounds are diminished in right posterior middle lobe and right posterior lower lobe Breath sounds with wheezes the patient has moderate shortness of breath sg 18:28 16:00 BP 121 / 65; Pulse 88bpm; Resp 16bpm; Pulse Ox 96%; 1.36 kg Measured; hb hb 20:46 19:46 BP 140 / 72; Pulse 95bpm; Resp 24bpm; Pulse Ox 97% RA; tl2 tl2
--- NOTE | 2018-10-27 12:07 | EDPHYS ---
Physician Documentation [facility] Name: Angelo Narvaez Age: 63 yrs Sex: Male : 1955 Arrival Date: 10/27/2018 Time: 08:17 Bed 3 Private MD: Tomas Sawant K; Danial Wilkins ED Physician Brenda Blackwood HPI: 10/27 08:53 This 63 yrs old Male presents to ER via Wheelchair with complaints of Fever, ma2 Shortness Of Breath, High Blood Pressure. 08:53 The patient reports fever, that was measured at 100.9 degrees Fahrenheit. Onset: The ma2 symptoms/episode began/occurred gradually, 1 day(s) ago. Associated signs and symptoms: Pertinent positives: cough, Pertinent negatives: altered mental status, headache, myalgias, nausea. Severity of symptoms: At their worst the symptoms were moderate in the emergency department the symptoms are unchanged. The patient has experienced similar episodes in the past. sob and cough x 1 day + fever increased O2 requirement,. Historical: - Allergies: 08:44 No Known Allergies; sg - PMHx: 08:44 a fib; COPD; HTN; Lung Cancer; Pneumothorax; sg - Immunization history:: Adult Immunizations up to date. - Social history:: Smoking status: Patient/guardian denies using tobacco, Patient/guardian denies using alcohol, street drugs, The patient lives with family. - Ebola Screening: : Patient negative for fever greater than or equal to 101.5 degrees Fahrenheit, and additional compatible Ebola Virus Disease symptoms Patient denies exposure to infectious person Patient denies travel to an Ebola-affected area in the 21 days before illness onset No symptoms or risks identified at this time. - Family history:: not pertinent. ROS: 08:53 Eyes: Negative for injury, pain, redness, and discharge, ENT: Negative for injury, ma2 pain, and discharge, Neck: Negative for injury, pain, and swelling. 08:53 Cardiovascular: Negative for chest pain, palpitations, and edema, Abdomen/GI: Negative for abdominal pain, nausea, diarrhea, and constipation. 08:53 Constitutional: Positive for fever, Negative for body aches, poor PO intake, weight loss. 08:53 Respiratory: Positive for cough, dyspnea on exertion, shortness of breath, wheezing, Negative for orthopnea. Exam: 08:53 ENT: Nares patent. No nasal discharge, no septal abnormalities noted. Tympanic ma2 membranes are normal and external auditory canals are clear. Oropharynx with no redness, swelling, or masses, exudates, or evidence of obstruction, uvula midline. Mucous membranes moist. Chest/axilla: Normal chest wall appearance and motion. Nontender with no deformity. No lesions are appreciated. Abdomen/GI: Soft, non-tender, with normal bowel sounds. No distension or tympany. No guarding or rebound. No evidence of tenderness throughout. 08:53 MS/ Extremity: Pulses equal, no cyanosis. Neurovascular intact. Full, normal range of motion. Neuro: Awake and alert, GCS 15, oriented to person, place, time, and situation. Cranial nerves II-XII grossly intact. Motor strength 5/5 in all extremities. Sensory grossly intact. Cerebellar exam normal. Normal gait. 08:53 Constitutional: The patient appears in obvious distress, moderately distressed. 08:53 Cardiovascular: Rate: tachycardic, Rhythm: regular, Pulses: no pulse deficits are appreciated, Heart sounds: normal, Edema: is not appreciated. 08:53 Respiratory: moderate respiratory distress is noted, Respirations: prolonged exhalation, Breath sounds: rales, that are moderate, are heard diffusely, wheezing: Respiratory rate: 22 Vital Signs: 08:41 BP 164 / 97; Pulse 118; Resp 46 S; Temp 99.6; Pulse Ox 94% on 4 lpm NC; Pain 2/10; sg 09:30 BP 162 / 87; Pulse 113; Resp 36; Pulse Ox 97% on 100% Nebulizer Mask; sg 10:46 BP 156 / 88; Pulse 112; Resp 24; Pulse Ox 97% on Nebulizer Mask; Pain 9/10; hb 11:12 BP 168 / 90; Pulse 107; Resp 23; Pulse Ox 98% on Nebulizer Mask; mh5 12:02 BP 131 / 77; Pulse 97; Resp 20; Pulse Ox 96% on 3 lpm NC; Pain 2/10; hb 13:00 BP 136 / 72; Pulse 96; Resp 19; Pulse Ox 97% on 3 lpm NC; hb 14:00 BP 114 / 76; Pulse 92; Resp 21; Pulse Ox 98% on 3 lpm NC; hb 15:00 BP 103 / 62; Pulse 91; Resp 18; Pulse Ox 98% on 3 lpm NC; hb 16:00 BP 121 / 65; Pulse 88; Resp 16; Pulse Ox 96% on 3 lpm NC; hb 17:00 BP 103 / 77; Pulse 86; Resp 15; Pulse Ox 96% on 3 lpm NC; hb 18:00 BP 108 / 71; Pulse 87; Resp 16; Pulse Ox 96% on 3 lpm NC; hb 19:46 BP 140 / 72; Pulse 95; Resp 24; Temp 98.1(O); Pulse Ox 97% on R/A; tl2 21:20 BP 136 / 75; Pulse 91; Resp 22; Temp 98.1; Pulse Ox 97% on R/A; ak1 Procedures: 12:03 Chest tube insertion: the site was prepped using Betadine, in sterile fashion, Tube ma2 size: a 16 upper sorbian chest tube was inserted, introduced in left lateral to pleur-e-vac, dressed with foam tape, 4x4s, the patient tolerated the procedure well. MDM: 08:53 Differential diagnosis: bacterial infection, URI, bronchitis, pneumonia likely ma2 pneumonia vs COPD exacerbation vs CHF. PE is not unlikely given his cancer hx however he is on xarelto, takes it everyday, no new le edema or swelling or pain and alternative diagnosis are more likely,.presence of massive PE is not likely given he is normotensive, will not pursue CT PE rule as risk of contrast induced nephropathy in his condition being on xarelto weighs benefit.. 11:59 Data reviewed: vital signs, nurses notes. ma2 12:03 Counseling: I had a detailed discussion with the patient and/or guardian regarding: the ma2 historical points, exam findings, and any diagnostic results supporting the discharge/admit diagnosis, the presence of at least one elevated blood pressure reading (>120/80) during this emergency department visit, radiology results. 12:03 Response to treatment: the patient's symptoms have markedly improved after treatment, ma2 the patient's condition has returned to base line. ED course: discussed with dr. Washburn as dr. Wilkins is not available.. paged dr. Stockton he is in OR will call back . 12:06 Patient medically screened. ma2 12:54 ED course: dr. forrest saw the patient and recommend transfer emergently for higher ma2 level of care for thoracic surgeon for evaluation for possible VATS given the recurrent pneumothorax this service is not available in our hospital.. . 10/27 08:52 Order name: Blood Culture Adult (2) ca2 10/27 08:52 Order name: BMP ca2 10/27 08:52 Order name: CBC with Diff [facility] 10/27 08:52 Order name: Ckmb [facility] 10/27 08:52 Order name: CPK; Complete Time: 09:50 ca2 10/27 08:52 Order name: Hepatic Function; Complete Time: 09:50 ca2 10/27 08:52 Order name: Lipase; Complete Time: 09:50 ca2 10/27 08:52 Order name: Magnesium; Complete Time: 09:50 ca2 10/27 08:52 Order name: NT PRO-BNP; Complete Time: 09:50 ca2 10/27 08:52 Order name: PT-INR; Complete Time: 09:50 [facility] 10/27 08:52 Order name: Ptt, Activated; Complete Time: 09:50 [facility] 10/27 08:52 Order name: Troponin (emerg Dept Use Only); Complete Time: 09:50 [facility] 10/27 08:52 Order name: Influenza Screen (a \T\ B); Complete Time: 11:59 ca2 10/27 08:53 Order name: Urine Dipstick--Ancillary (enter results); Complete Time: 09:34 bd 10/27 08:52 Order name: XRAY CXR (1 view); Complete Time: 10:08 ca2 10/27 08:53 Order name: Blood Culture EDMS 10/27 08:53 Order name: Basic Metabolic Panel; Complete Time: 09:50 [facility] 10/27 08:53 Order name: CBC with Automated Diff; Complete Time: 09:34 EDMS 10/27 08:53 Order name: CKMB Creatine Kinase MB; Complete Time: 09:50 MS 10/27 11:30 Order name: XRAY Chest (1 view); Complete Time: 12:03 10/27 08:52 Order name: EKG; Complete Time: 08:53 ca2 10/27 08:52 Order name: Cardiac monitoring; Complete Time: 09:40 ca2 10/27 08:52 Order name: EKG - Nurse/Tech; Complete Time: 09:40 [facility] 10/27 08:52 Order name: IV Saline Lock; Complete Time: 09:40 ma2 10/27 08:52 Order name: Labs collected and sent; Complete Time: 18:25 ma2 10/27 08:52 Order name: O2 Per Protocol; Complete Time: 09:39 ma2 10/27 08:52 Order name: O2 Sat Monitoring; Complete Time: 09:39 ma2 10/27 10:02 Order name: Consent for Chest Tube; Complete Time: 10:27 sg Administered Medications: 09:39 Drug: SOLU-Medrol 125 mg Route: IVP; Site: left antecubital; sg 18:25 Follow up: Response: No adverse reaction hb 09:39 Drug: LevaQUIN 750 mg Volume: 150 ml; Route: IVPB; Infused Over: 90 mins; Site: left sg antecubital; 11:30 Follow up: Response: No adverse reaction; IV Status: Completed infusion hb 09:39 Drug: NS 0.9% 500 ml Route: IV; Rate: 1 bolus; Site: left antecubital; sg 10:46 Follow up: Response: No adverse reaction; IV Status: Completed infusion hb 09:40 Drug: Xopenex 1.25 mg Route: Inhalation; sg 09:40 Drug: Albuterol 2.5 mg Route: Inhalation; sg 09:40 Drug: AtroVENT Aerosol 0.5 mg Route: Inhalation; sg 13:07 Drug: Zofran 4 mg Route: IVP; Site: left antecubital; hj 14:30 Follow up: Response: No adverse reaction hb 13:08 Drug: morphine 4 mg Route: IVP; Site: left antecubital; hj 13:40 Follow up: Response: No adverse reaction hb 16:02 Drug: Zofran 4 mg Route: IVP; Site: left antecubital; hb 16:35 Follow up: Response: No adverse reaction hb 16:02 Drug: morphine 4 mg Route: IVP; Site: left antecubital; hb 16:35 Follow up: Response: No adverse reaction; Pain is decreased hb 20:25 Drug: fentaNYL (PF) 25 mcg Route: IVP; Site: left antecubital; ak1 21:19 Follow up: Response: No adverse reaction ak1 Disposition: 10/27/18 12:57 Transfer ordered to [facility]. Diagnosis are Pneumothorax, unspecified, Chronic obstructive pulmonary disease with (acute) exacerbation. - Reason for transfer: Higher level of care. - Accepting physician is Dr. Mccloud. - Condition is Stable. - Problem is new. - Symptoms are unchanged. Critical care time excluding procedures: 12:54 Critical care time: Bedside Care: 35 minutes, Consultation: 20 minutes, Family ma2 Intervention: 20 minutes. Total time: 75 minutes Signatures: Dispatcher [employer] EDMaycol Davis RN RN sg Krenek, Amber RN RN ak1 Michi Grey RN Tomeka Olson RN RN Brenda Blackwood MD MD ma2 Corrections: (The following items were deleted from the chart) 12:06 12:06 Hospitalization Ordered by Yonis Manning MD for Inpatient Admission. ma2 Preliminary diagnosis is Pneumothorax, unspecified; Chronic obstructive pulmonary disease with acute lower respiratory infection. Bed requested for Intensive Care Unit. Status is Inpatient Admission. Condition is Stable. Problem is new. Symptoms have improved. UTI on Admission? No. ma2 12:45 12:06 10/27/2018 12:06 Hospitalization Ordered by Yonis Manning MD for Inpatient ma2 Admission. Preliminary diagnosis is Pneumothorax, unspecified; Chronic obstructive pulmonary disease with acute lower respiratory infection. Bed requested for Intensive Care Unit. Status is Inpatient Admission. Condition is Stable. Problem is new. Symptoms have improved. UTI on Admission? No. ma2 13:45 12:57 10/27/2018 12:57 Transfer ordered to [facility]. Diagnosis is ma2 Pneumothorax, unspecified; Chronic obstructive pulmonary disease with (acute) exacerbation. Reason for transfer: Higher level of care. Accepting physician is [facility]. Condition is Stable. Problem is new. Symptoms are unchanged. ma2 21:27 13:45 10/27/2018 12:57 Transfer ordered to [facility]. Diagnosis is ak1 Pneumothorax, unspecified; Chronic obstructive pulmonary disease with (acute) exacerbation. Reason for transfer: Higher level of care. Accepting physician is Dr. Mccloud. Condition is Stable. Problem is new. Symptoms are unchanged. ma2
[2018-10-27] MEDS ORDERED: MORPHINE 4 MG/ML SYR ONE ×2 (13:14→16:07)
[2018-10-27] MEDS ORDERED: FENTANYL CITR 100 MCG/2 ML ONE (20:43)
--- NOTE | 2018-10-28 14:38 | EKG ---
Test Date: 2018-10-27 Test Time: 08:50:43 Supervisor [employer]ocomotive: [employer] MEASUREMENT RESULTS: Intervals: Rate: 111 MS: 138 QRSD: 124 QT: 374 QTc: 508 [place]: P: 67 MS: 138 QRS: 256 T: 57 INTERPRETIVE STATEMENTS: Sinus tachycardia Right bundle branch block Septal infarct, age undetermined Inferior infarct, age undetermined Abnormal ECG Compared to ECG 04/26/2018 18:09:05 No significant changes Electronically Signed On 10-28-18 14:36:55 [employer]ORTS ANALYST by Nasir Bailey
== END 2018-10-27 21:27 | disposition short-term general hospital (02) ==
LOC: ER 08:16
PROC: 0W9B30Z Drainage of Left Pleural Cavity with Drainage Device, Percutaneous Approach (ICD-10-PCS; principal; 2018-10-27)
DX: J93.9 Pneumothorax, unspecified (principal); J44.1 Chronic obstructive pulmonary disease with (acute) exacerbation; I10 Essential (primary) hypertension; Z85.118 Personal history of other malignant neoplasm of bronchus and lung
CPT/HCPCS: 36415; 71045; 80048; 80076; 81003; 82550; 82553; 83690; 83735; 83880; 84484; 85025; 85610; 85730; 87040; 87804; 93005; 96365; 96366; 96375; 99285; J1170; J2405; J2930; J3010; J7030

== ENCOUNTER 2018-12-29 17:29 | Inpatient (IN) | payer BC, OTHER ==
--- OUTSIDE RECORDS SUMMARY | 2018-12-29 17:31 | XMS REPORT | Clinical Summary ---
:1955 Author Organization [facility] Address [address] [place] [address] Care Team Providers Name Role Phone Danial Wilkins MD Primary Care Provider Allergies No Known Allergies Medications Medication Sig Dispensed Refills Start End Date Status Date aspirin (ECOTRIN) 81 Take 81 mg by 0 Active MG enteric coated mouth daily. tablet multivitamin with Take 1 tablet by 0 Active minerals tablet mouth daily. cyclobenzaprine Take 5 mg by 0 Active (FLEXERIL) 5 mg mouth 3 (three) tablet times a day as needed for muscle spasms. simvastatin (ZOCOR) Take 20 mg by 0 Active 20 MG tablet mouth nightly. folic acid (FOLVITE) Take 1 mg by 0 Active 1 MG tablet mouth daily. 3 DAILY albuterol (PROAIR Inhale 2 puffs 0 Active HFA,PROVENTIL every 6 (six) HFA,VENTOLIN HFA) 90 hours as needed mcg/actuation for wheezing. inhaler amLODIPine (NORVASC) TK 1 T PO QD 1 Active 10 mg tablet 7 metoprolol succinate 50 mg 2 (two) 2 Active XL (TOPROL-XL) 100 times a day. 7 mg 24 hr tablet omeprazole 20 mg. 3 Active (PriLOSEC) 20 MG 7 capsule rivaroxaban Take 15 mg by 0 Active (XARELTO) 15 mg mouth. tablet theophylline Take 200 mg by 0 Active (LACIE-24) 100 MG 24 mouth daily. hr capsule furosemide (LASIX) Take 80 mg by 0 Active 80 mg tablet mouth 2 (two) times a day. spironolactone Take 12.5 mg by 0 Active (ALDACTONE) 25 MG mouth daily. tablet predniSONE Take 10 mg by 0 Active (DELTASONE) 10 mg mouth daily. tablet amIODarone Take 200 mg by 0 Active (PACERONE) 200 MG mouth daily. tablet ferrous sulfate 325 Take 325 mg by 0 Active (65 FE) MG tablet mouth daily with breakfast. magnesium oxide 250 Take 250 mg by 0 Active mg tablet mouth daily. gabapentin Take 300 mg by 0 Active (NEURONTIN) 300 mg mouth 3 (three) capsule times a day. tiotropium-olodatero Take 2 0 10/30/20 Discontinued l (STIOLTO RESPIMAT) inhalations by 18 2.5-2.5 mouth daily. mcg/actuation inhalation solution adalimumab (HUMIRA) Inject 40 mg 0 10/30/20 Discontinued 40 mg/0.8 mL under the skin 18 injection once. HYDROcodone-acetamin Take 1 tablet by 0 10/30/20 Discontinued ophen (NORCO) 5-325 mouth every 6 18 mg per tablet (six) hours as needed for moderate pain. methotrexate 2.5 MG Take 2.5 mg by 0 10/30/20 Discontinued tablet mouth once a 18 week. 7 PILLS WEEKLY tadalafil (CIALIS) Take 20 mg by 0 10/30/20 Discontinued 20 mg tablet mouth daily as 18 needed. losartan (COZAAR) 50 TK 1 T PO QD 3 10/30/20 Discontinued MG tablet 7 18 CHANTIX 1 mg tablet TK 1 T PO D 5 10/30/20 Discontinued 7 18 CHANTIX STARTING TK 1 T PO D OR 3 10/30/20 Discontinued MONTH BOX 0.5 mg DIRECTED 7 18 (11)- 1 mg (42) tablet ondansetron ODT DISSOLVE 1 T ON 3 10/30/20 Discontinued (ZOFRAN-ODT) 4 MG TONGUE Q 4 TO 6 7 18 disintegrating H PRF NV tablet dexamethasone TK 1 T PO BID 2 10/30/20 Discontinued (DECADRON) 4 MG FOR 3 DAYS. 7 18 tablet BEGIN THE DAY BEFORE EACH CHEMO TREATMENT gabapentin Take 1 capsule 60 capsule 3 09/04/20 (NEURONTIN) 300 mg (300 mg total) 7 18 capsuleIndications: by mouth 2 (two) Neuropathic pain times a day. acetaminophen Take 2 tablets 30 tablet 0 11/06/19 (TYLENOL) 500 MG (1,000 mg total) 8 19 tablet by mouth every 8 (eight) hours for 5 days. traMADol (ULTRAM) 50 Take 1 tablet 8 tablet 0 11/03/19 mg tablet (50 mg total) by 8 19 mouth every 6 (six) hours as needed for severe pain for up to 2 days. Active Problems Patient Care Coordination Note [facility] [place] [address] P: [phone] F: [phone] Problem Noted Date Pneumothorax 10/27/2018 Malignant neoplasm of upper lobe bronchus 07/15/2017 Cancer Staging: Pathologic stage from 07/15/2017: Stage IA (yT1a, N0, cM0) - Signed by Blu Lay MD on 07/29/2017 Hypertension 02/03/2017 COPD (chronic obstructive pulmonary disease) 02/03/2017 Rheumatoid arthritis 02/03/2017 Smoking 02/03/2017 Encounters Date Type Specialty Care Team Description 12/07/2018 Telephone Cardiothoracic Surgery Aura Macias MA 11/04/2018 Patient Outreach Quality Cholo Hedrick, PharmD 10/27/2018 - Hospital Encounter Cardiovascular Vito Merritt, 11/01/2018 10/27/2018 Intake Access N/A after 12/28/2017 Family History Medical History Relation Name Comments [...] travel history available. Last Filed Vital Signs Vital Sign Reading Time Taken Blood Pressure 126/60 11/01/2018 7:59 AM HEEL SCOURER Pulse 74 11/01/2018 8:07 AM HEEL SCOURER Temperature 35.6 C (96.1 F) 11/01/2018 7:59 AM HEEL SCOURER Respiratory Rate 18 11/01/2018 8:07 AM HEEL SCOURER Oxygen Saturation 93% 11/01/2018 7:59 AM HEEL SCOURER Inhaled Oxygen Concentration - - Weight 68.4 kg (150 lb 11.2 oz) 11/01/2018 5:00 AM HEEL SCOURER Height 165.1 cm (5' 5") 10/27/2018 10:44 PM HEEL SCOURER Body Mass Index 25.08 11/01/2018 5:00 AM HEEL SCOURER Plan of Treatment Health Maintenance Due Date Last Done Comments COLON CANCER SCREENING 2003 SHINGLES VACCINES (#1) 2003 INFLUENZA VACCINE 06/03/2018 65+ PNEUMOCOCCAL VACCINE (1 of 2 - PCV13) 2018 PNEUMOCOCCAL POLYSACCHARIDE VACCINE AGE 65 AND OVER 2018 Implants Implanted Type Area It Applications Manager Device Shelf Model / Identifier Expiration Serial / Date Lot Hemostat Absrbl Oxidized Knttd 3x4in Cllos Surgicel Nu-Knit - [id number] Surgical N/A: N[facility] / Implanted: 07/15/2017 (Quantity not on file) Implants; / Expanders; [id number] Extenders; Surgical Wires Hemostat Absrbl Oxidized Knttd 3x4in Cllos Surgicel Nu-Knit - [id number] Surgical N/A: N/A [facility] 1945 / Implanted: 07/15/2017 (Quantity not on file) Implants; / Expanders; [id number] Extenders; Surgical Wires Hemostat Absrbl Oxidized Knttd 3x4in Cllos Surgicel Nu-Knit - [id number] Surgical N/A: N/A [email or web address] 1945 / Implanted: 07/15/2017 (Quantity not on file) Implants; / Expanders; [id number] Extenders; Surgical Wires Hemostat Absrbl Oxidized Knttd 3x4in Cllos Surgicel Nu-Knit - [id number] Surgical N/A: N/A [email or web address] [facility] 03/02/2022 1943 / Implanted: 07/15/2017 (Quantity not on file) Implants; / Expanders; [id number] Extenders; Surgical Wires Hemostat Absrbl Oxidized Knttd 3x4in Cllos Surgicel Nu-Knit - [id number] Surgical N/A: N/A [employer] [facility] 03/02/2022 1943 / Implanted: 07/15/2017 (Quantity not on file) Implants; / Expanders; [id number] Extenders; Surgical Wires Kit Selnt Plrl Air Leak 4ml Strl Progel - [id number] Surgical N/A: N/A [employer] 07/04/2018 [id number] / Implanted: Qty: 1 on 07/15/2017 by Blu Lay MD Implants; / Expanders; Extenders; Surgical Wires Matrix [employer] Floseal 10ml W/ Humn F2 - [id number] Surgical N/A: N/A [employer] [id number] / Implanted: 07/15/2017 (Quantity not on file) Implants; BIOSCIENCE / Expanders; Extenders; Surgical Wires Kit Sel[employer]rl Air Leak 4ml Strl Progel - [id number] Surgical N/A: N/A [employer] [id number] / Implanted: 07/15/2017 (Quantity not on file) Implants; / Expanders; Extenders; Surgical Wires Procedures Procedure Name Priority Date/Time Associated Comments Diagnosis XR CHEST 1 VW PORTABLE Routine 11/01/2018 6:32 Results for this AM HEEL SCOURER procedure are in the results section. MANUAL DIFFERENTIAL Routine 11/01/2018 4:55 Results for this AM HEEL SCOURER procedure are in the results section. ESTIMATED GFR Routine 11/01/2018 4:55 Results for this AM HEEL SCOURER procedure are in the results section. PHOSPHORUS LEVEL Routine 11/01/2018 4:55 Results for this AM HEEL SCOURER procedure are in the results section. MAGNESIUM LEVEL Routine 11/01/2018 4:55 Results for this AM HEEL SCOURER procedure are in the results section. CBC WITH PLATELET AND Routine 11/01/2018 4:55 Results for this DIFFERENTIAL AM HEEL SCOURER procedure are in the results section. BASIC METABOLIC PANEL Routine 11/01/2018 4:55 Results for this AM HEEL SCOURER procedure are in the results section. XR CHEST 1 VW PORTABLE STAT 10/31/2018 3:27 Results for this PM [facility]EL [facility]ER procedure are in the results section. XR CHEST 1 VW PORTABLE Routine 10/31/2018 6:45 Results for this AM HEEL SCOURER procedure are in the results section. MANUAL DIFFERENTIAL Routine 10/31/2018 4:30 Results for this AM HEEL SCOURER procedure are in the results section. ESTIMATED GFR Routine 10/31/2018 4:30 Results for this AM HEEL SCOURER procedure are in the results section. BASIC METABOLIC PANEL Routine 10/31/2018 4:30 Results for this AM HEEL SCOURER procedure are in the results section. CBC WITH PLATELET AND Routine 10/31/2018 4:30 Results for this DIFFERENTIAL AM HEEL SCOURER procedure are in the results section. PARTIAL THROMBOPLASTIN Routine 10/31/2018 4:30 Results for this TIME (PTT) AM HEEL SCOURER procedure are in the results section. PARTIAL THROMBOPLASTIN Timed 10/30/2018 10:50 Results for this TIME (PTT) PM HEEL SC[facility]ER procedure are in the results section. PARTIAL THROMBOPLASTIN Routine 10/30/2018 4:45 Results for this TIME (PTT) PM HEEL SC[facility]ER procedure are in the results section. XR CHEST 1 VW PORTABLE Routine 10/30/2018 8:27 Results for this AM HEEL SCOURER procedure are in the results section. PARTIAL THROMBOPLASTIN Routine 10/30/2018 5:35 Results for this TIME (PTT) AM HEEL SCOURER procedure are in the results section. ESTIMATED GFR Routine 10/30/2018 5:35 Results for this AM HEEL SCOURER procedure are in the results section. BASIC METABOLIC PANEL Routine 10/30/2018 5:35 Results for this AM HEEL SCOURER procedure are in the results section. HC COMPLETE BLD COUNT Routine 10/30/2018 5:35 Results for this W/AUTO DIFF AM HEEL SCOURER procedure are in the results section. PARTIAL THROMBOPLASTIN Routine 10/29/2018 9:30 Results for this TIME (PTT) PM HEEL SC[facility]ER procedure are in the results section. XR CHEST 1 VW PORTABLE Routine 10/29/2018 3:07 Results for this PM HEEL SC[facility]ER procedure are in the results section. PARTIAL THROMBOPLASTIN Timed 10/29/2018 1:32 Results for this TIME (PTT) PM HEEL SC[facility]ER procedure are in the results section. XR CHEST 1 VW PORTABLE Routine 10/29/2018 8:23 Results for this AM HEEL SCOURER procedure are in the results section. PARTIAL THROMBOPLASTIN Timed 10/29/2018 5:10 Results for this TIME (PTT) AM HEEL SCOURER procedure are in the results section. ESTIMATED GFR Routine 10/29/2018 5:10 Results for this AM HEEL SCOURER procedure are in the results section. BASIC METABOLIC PANEL Routine 10/29/2018 5:10 Results for this AM HEEL SC[facility]ER procedure are in the results section. HC COMPLETE BLD COUNT Routine 10/29/2018 5:10 Results for this W/AUTO DIFF AM HEEL SC[facility]ER procedure are in the results section. PARTIAL THROMBOPLASTIN Routine 10/28/2018 10:00 Results for this TIME (PTT) PM HEEL SC[facility]ER procedure are in the results section. PARTIAL THROMBOPLASTIN Timed 10/28/2018 4:00 Results for this TIME (PTT) PM HEEL SC[facility]ER procedure are in the results section. CT CHEST WO CONTRAST STAT 10/28/2018 10:17 Results for this AM HEEL SC[facility]ER procedure are in the results section. XR CHEST 1 VW PORTABLE STAT 10/28/2018 9:09 Results for this AM HEEL SCOURER procedure are in the results section. MANUAL DIFFERENTIAL Routine 10/28/2018 8:25 Results for this AM HEEL SC[facility]ER procedure are in the results section. ESTIMATED GFR Routine 10/28/2018 8:25 Results for this AM HEEL SC[facility]ER procedure are in the results section. PHOSPHORUS LEVEL Routine 10/28/2018 8:25 Results for this AM HEEL SC[facility]ER procedure are in the results section. MAGNESIUM LEVEL Routine 10/28/2018 8:25 Results for this AM HEEL SC[facility]ER procedure are in the results section. CBC WITH PLATELET AND Routine 10/28/2018 8:25 Results for this DIFFERENTIAL AM HEEL SC[facility]ER procedure are in the results section. BASIC METABOLIC PANEL Routine 10/28/2018 8:25 Results for this AM HEEL SC[facility]ER procedure are in the results section. PARTIAL THROMBOPLASTIN Timed 10/28/2018 8:25 Results for this TIME (PTT) AM HEEL SC[facility]ER procedure are in the results section. XR CHEST 1 VW PORTABLE STAT 10/27/2018 11:47 Results for this PM [facility]EL [facility]ER procedure are in the results section. ANTI XA, UNFRACTIONATED STAT 10/27/2018 11:26 Results for this PM [facility]EL [facility]ER procedure are in the results section. TYPE AND SCREEN STAT 10/27/2018 11:26 Results for this PM [facility]EL SC[facility]ER procedure are in the results section. PARTIAL THROMBOPLASTIN STAT 10/27/2018 11:26 Results for this TIME (PTT) PM HEEL SCOURER procedure are in the results section. PROTHROMBIN TIME WITH STAT 10/27/2018 11:26 Results for this INR PM HEEL SCOURER procedure are in the results section. HC COMPLETE BLD COUNT STAT 10/27/2018 11:26 Results for this W/AUTO DIFF PM HEEL SCOURER procedure are in the results section. ESTIMATED GFR STAT 10/27/2018 10:58 Results for this PM HEEL SC[facility]ER procedure are in the results section. PHOSPHORUS LEVEL STAT 10/27/2018 10:58 Results for this PM HEEL SCOURER procedure are in the results section. MAGNESIUM LEVEL STAT 10/27/2018 10:58 Results for this PM HEEL SCOURER procedure are in the results section. BASIC METABOLIC PANEL STAT 10/27/2018 10:58 Results for this PM HEEL SCOURER procedure are in the results section. after 12/28/2017 Results XR Chest 1 Vw Portable (11/01/2018 6:32 AM HEEL SCOURER)Only the most recent of8 resultswithin the time period is included. Narrative Performed At EXAMINATION:XR CHEST 1 VW PORTABLE [facility] CLINICAL HISTORY:hx o ct COMPARISON:Most Recent IMPRESSION: Heart and mediastinum are stable. Left-sided pleural thickening and paramediastinal opacities again noted. No acute lung infiltrates have developed. Right shoulder degenerative changes likely related to chronic cuff tear. [facility]-[id number] Procedure Note Hm Interface, Radiology Results Incoming - 11/01/2018 7:23 AM HEEL SCOURER EXAMINATION: XR CHEST 1 VW PORTABLE CLINICAL HISTORY: hx o ct COMPARISON: Most Recent IMPRESSION: Heart and mediastinum are stable. Left-sided pleural thickening and paramediastinal opacities again noted. No acute lung infiltrates have developed. Right shoulder degenerative changes likely related to chronic cuff tear. [facility]-[id number] Performing Organization Address City/[facility] Phone Number [facility] [address] [place] [address] Estimated GFR (11/01/2018 4:55 AM HEEL SCOURER)Only the most recent of6 resultswithin the time period is included. Estimated GFR 43 (A) mL/min/1.73 m2 [facility] Comment: HOSPITAL CatergoryUnitsInterpretation G1 >=90 Normal or high G2 60-89Mildly decreased [id number] to moderately decreased [id number] to severely decreased G4 15-29Severely decreased G5 <15Kidney failure The eGFR was calculated using the Chronic Kidney Disease Epidemiology Collaboration (CKD-EPI) equation. Interpretation is based on recommendations of the National Kidney Foundation-Kidney Disease Outcomes Quality Initiative (NKF-KDOQI) published in 2014. Specimen Plasma specimen Performing Organization Address City/State/Zipcode Phone Number [facility] DEPARTMENT OF PATHOLOGY AND [address] [place] [address] GENOMIC MEDICINE [address] [address] Manual differential (11/01/2018 4:55 AM HEEL SCOURER)Only the most recent of3 resultswithin the time period is included. Manual differential PERFORMED [facility] Neutrophils 90.0 (H) 39.0 - 69.0 % [facility] Lymphocytes 2.0 (L) 25.0 - 45.0 % [facility] Monocytes 4.0 0.0 - 10.0 % [facility] Eosinophils 0.0 0.0 - 5.0 % [facility] Basophils 0.0 0.0 - 1.0 % [facility] Metamyelocytes 1 % [facility] Myelocytes 3 % [facility] Promyelocytes 0 % [facility] Platelet slide review Dasha adequate [facility] Anisocytosis Moderate [facility] Enlarged platelets Moderate (A) [facility] Performing Organization Address City/State/Zipcode Phone Number [facility] DEPARTMENT OF PATHOLOGY AND [address] [place] [address] GENOMIC MEDICINE [address] [address] CBC with platelet and differential (11/01/2018 4:55 AM HEEL SCOURER)Only the most recent of6 resultswithin the time period is included. WBC 5.78 4.50 - 11.00 k/uL [facility] RBC 3.45 (L) 4.40 - 6.00 m/uL [facility] HGB 10.3 (L) 14.0 - 18.0 g/dL [facility] HCT 32.6 (L) 41.0 - 51.0 % [facility] MCV 94.5 82.0 - 100.0 fL [facility] MCH 29.9 27.0 - 34.0 pg [facility] MCHC 31.6 31.0 - 37.0 g/dL [facility] RDW - SD 52.3 37.0 - 55.0 fL [facility] MPV 10.0 8.8 - 13.2 fL [facility] Platelet count 202 150 - 400 k/uL [facility] Nucleated RBC 0.00 /100 WBC [facility] Neutrophils 90.0 (H) 39.0 - 69.0 % [facility] Lymphocytes 2.0 (L) 25.0 - 45.0 % [facility] Monocytes 4.0 0.0 - 10.0 % [facility] Eosinophils 0.0 0.0 - 5.0 % [facility] Basophils 0.0 0.0 - 1.0 % [facility] Specimen Blood Performing Organization Address City/[facility]ode Phone Number [facility] DEPARTMENT OF PATHOLOGY AND [address] [place] [id number] [place] [phone] Phosphorus level (11/01/2018 4:55 AM HEEL SCOURER)Only the most recent of3 resultswithin the time period is included. Phosphorus 3.5 2.4 - 4.5 mg/dL [facility] Specimen Plasma specimen Performing Organization Address City/[facility] [place] Phone Number [facility] DEPARTMENT OF PATHOLOGY AND [address] [place] [phone] Magnesium level (11/01/2018 4:55 AM HEEL SCOURER)Only the most recent of3 resultswithin the time period is included. Magnesium 2.3 1.6 - 2.4 mg/dL [facility] Specimen Plasma specimen Performing Organization Address [facility] [place] Phone Number [facility] DEPARTMENT OF PATHOLOGY AND [address] [place] [address] [place] [phone] Basic metabolic panel (11/01/2018 4:55 AM HEEL SCOURER)Only the most recent of6 resultswithin the time period is included. Sodium 138 135 - 148 mEq/L [facility] Potassium 4.1 3.5 - 5.0 mEq/L [facility] Chloride 103 98 - 112 mEq/L [facility] CO2 23 (L) 24 - 31 mEq/L [facility] Anion gap 12@ANIO 7 - 15 mEq/L [facility] BUN 28 (H) 8 - 23 mg/dL [facility] Creatinine 1.64 (H) 0.70 - 1.20 mg/dL [facility] Glucose 80 65 - 99 mg/dL [facility] Calcium 9.5 8.8 - 10.2 mg/dL [facility] Specimen Plasma specimen Performing Organization Address City/[facility]ercode Phone Number [facility] DEPARTMENT OF PATHOLOGY AND [address] [place], [place] [id number] [address] [place] [address] Partial thromboplastin time, activated (10/31/2018 4:30 AM HEEL SCOURER)Only the most recent of11 resultswithin the time period is included. PTT 80.2 (H) 23.0 - 36.0 sec [facility] Comment: PTT therapeutic range for unfractionated heparin is 61.0-112.0 seconds which corresponds to Anti-Xa 0.3-0.7 U/ml. Specimen Blood Performing Organization Address City/State/Zipcode Phone Number [facility] DEPARTMENT OF PATHOLOGY AND [address] [place] [address] GENOMIC MEDICINE [facility] [address] [place] [address] Chest Wo Contrast (10/28/2018 10:17 AM HEEL SCOURER) Narrative Performed At [facility] CL[facility]ICAL IND[facility]: pneumothorax TECHNIQUE:Multidetector CT imaging of the chest was performed without intravenous contrast with automated exposure control and/or iterative reconstruction techniques to radiation dose. COMPARISON:07/25/2017, 07/23/2017 and priors FINDINGS: LUNGS:There are operative changes status post left upper lobectomy. There is linear infiltration in the posterior aspect of the left lower lobe which probably reflects an element of scarring and postoperative distortion, acute infiltrate not excluded. There is a similar right basilar infiltration with focal bronchiectasis and peribronchial thickening. Areas of peripheral patchy alveolar infiltration are now present in the posterior aspect of the right middle lobe, new from 07/25/2017 with focal peribronchiolar nodularity in the right lower lobe (series 2 image 62 for example). Findings are likely infectious/inflammatory in etiology. Appropriate therapy and short-term follow-up recommended. Moderate emphysematous remain changes remain present bilaterally. PLEURA:Small left-sided pneumothorax is present with chest tube in place. LYMPH NODES:Small subcentimeter short axis mediastinal and hilar lymph nodes are present, none considered enlarged by criterion. CARDIOVASCULAR:Heart is normal in size with trace pericardial fluid. Moderate calcific trivessel coronary disease is present. Aorta and pulmonary arteries are normal in caliber with moderate atherosclerosis of the aortic arch and branch vessels noted as before. MEDIASTINUM:No mass is identified. Thyroid is homogeneous. Trachea and central airways are thick is is slightly patulous with small hiatal hernia with wall thickening of the distal esophagus, correlate for esophagitis. CHEST WALL:Subcutaneous gas is noted wall post chest tube placement, corresponding with recent radiographs. BONES: Mild degenerative changes noted. UPPER ABDOMEN:There are partially visualized simple as well as hemorrhagic cysts involving the upper pole of left kidney, other slightly complex cyst with dependent calcifications noted posteriorly on the left. Findings are however without significant change from 04/08/2017 CT. Nonobstructive right upper pole renal calculus noted. IMPRESSION: 1. Small left-sided pneumothorax with chest tube in place as described. 2. Operative changes status post left upper lobectomy. 3. Peribronchiolar inflammatory changes in the lungs suggestive of infectious or inflammatory disease. Short-term radiographic follow-up to document complete clearing recommended. Thank you for allowing us to participate in the care of your patient. [facility]-[id number] Procedure Note Hm Interface, Radiology Results Incoming - 10/28/2018 10:[address] CHEST WO CONTRAST CLINICAL INDICATION: pneumothorax TECHNIQUE: Multidetector CT imaging of the chest was performed without intravenous contrast with automated exposure control and/or iterative reconstruction techniques to radiation dose. COMPARISON: 07/25/2017, 07/23/2017 and priors FINDINGS: LUNGS: There are operative changes status post left upper lobectomy. There is linear infiltration in the posterior aspect of the left lower lobe which probably reflects an element of scarring and postoperative distortion, acute infiltrate not excluded. There is a similar right basilar infiltration with focal bronchiectasis and peribronchial thickening. Areas of peripheral patchy alveolar infiltration are now present in the posterior aspect of the right middle lobe, new from 2016 with focal peribronchiolar nodularity in the right lower lobe (series 2 image 62 for example). Findings are likely infectious/inflammatory in etiology. Appropriate therapy and short-term follow-up recommended. Moderate emphysematous remain changes remain present bilaterally. PLEURA: Small left-sided pneumothorax is present with chest tube in place. LYMPH NODES: Small subcentimeter short axis mediastinal and hilar lymph nodes are present, none considered enlarged by criterion. CARDIOVASCULAR: Heart is normal in size with trace pericardial fluid. Moderate calcific trivessel coronary disease is present. Aorta and pulmonary arteries are normal in caliber with moderate atherosclerosis of the aortic arch and branch vessels noted as before. MEDIASTINUM: No mass is identified. Thyroid is homogeneous. Trachea and central airways are thick is is slightly patulous with small hiatal hernia with wall thickening of the distal esophagus, correlate for esophagitis. CHEST WALL: Subcutaneous gas is noted wall post chest tube placement, corresponding with recent radiographs. BONES: Mild degenerative changes noted. UPPER ABDOMEN: There are partially visualized simple as well as hemorrhagic cysts involving the upper pole of left kidney, other slightly complex cyst with dependent calcifications noted posteriorly on the left. Findings are however without significant change from 04/08/2017 CT. Nonobstructive right upper pole renal calculus noted. IMPRESSION: 1. Small left-sided pneumothorax with chest tube in place as described. 2. Operative changes status post left upper lobectomy. 3. Peribronchiolar inflammatory changes in the lungs suggestive of infectious or inflammatory disease. Short-term radiographic follow-up to document complete clearing recommended. Thank you for allowing us to participate in the care of your patient. [facility]-[id number] Performing Organization Address City/[facility]/Zipcode Phone Number [address] [address] Prothrombin time with INR (10/27/2018 11:26 PM HEEL SCOURER) Prothrombin time 20.5 (H) 11.5 - 14.5 sec [facility] INR 1.8 [facility] Comment: HOSPITAL The International Normalized Ratio (INR) is a therapeutic monitoring tool for patients who are stable on oral anticoagulant therapy. An INR of 2.0-3.0 is suggested for deep vein thrombosis/pulmonary embolism. Specimen Blood Performing Organization Address [facility] Phone Number [facility] DEPARTMENT OF PATHOLOGY AND [address] [place] [phone] [address] Anti Xa, unfractionated (10/27/2018 11:26 PM HEEL SCOURER) Anti Xa, unfractionated >1.10 (H) 0.30 - 0.70 U/mL [facility] Comment: HOSPITAL Therapeutic Range:0.30 - 0.70 U/mL NOTIFIED ANALY OSPINA AT 10/28/201800:50 BY GD Specimen Blood Performing Organization Address [facility]/Zipcode Phone Number [facility] DEPARTMENT OF PATHOLOGY AND [address] [place] [phone] [address] Type and screen (10/27/2018 11:26 PM HEEL SCOURER) ABO grouping O [facility] Rh type POS [facility] Antibody screen (gel) NEG [facility] Specimen Blood Performing Organization Address City/State/Zipcode Phone Number [facility] DEPARTMENT OF PATHOLOGY AND [address] [place] [address] GENOMIC MEDICINE [facility] [address] [place] [address] after 12/28/2017 Insurance Payer Benefit Plan / Group Subscriber ID Type Phone Address BCBS [employer] xxxxxxxxxxxx PPO MEDICARE MEDICARE PART A AND B xxxxxxxxxxx Medicare [place], [place] (Home) [phone] [place], [place] (Work) [phone] Advance Directives Patient has advance care planning documents on file. For more information, please contact:[facility] [place] [address]
[2018-12-29] MEDS ORDERED: IPRATROPIUM BROM 0.5MG/2.5ML ONE (18:34)
[2018-12-29] MEDS ORDERED: ALBUTEROL 2.5 MG/3 ML NEB SOL ONE (18:34)
[2018-12-29] MEDS ORDERED: NA CHLORIDE 0.9% 1,000 ML ONE ×3 (18:34→20:56)
[2018-12-29 18:36] LABS: Absolute Lymphocytes (CBC) 0.3 K/uL (0.7-4.9); Absolute Monocytes 0.6 K/uL (0.1-1.3); Absolute Neutrophil 10.6 K/uL (1.8-8.0); Basophils % 0.5 % (0-1.3); Eosinophils % 0.1 % (0-4.4); Hematocrit 40.8 % (39.6-49.0); Lymphocytes % 2.6 % (15.3-44.8); MPV 8.5 fL (7.6-11.3); Monocytes % 5.2 % (3.3-12.3); RBC Red Blood Cell Count 4.64 M/uL (4.33-5.43)
[2018-12-29 18:37] LABS: Protime INR 1.74
[2018-12-29 18:58] LABS: Albumin 4.3 g/dL (3.4-5.0); Bilirubin Direct 0.1 mg/dL (0-0.2); Bilirubin Total 0.5 mg/dL (0.2-1.0); Magnesium 3.3 mg/dL (1.8-2.4); Potassium 3.6 mmol/L (3.5-5.1); Troponin (Emerg Dept Use Only) 0.05 ng/mL (0.0-0.045)
[2018-12-29 19:35] LABS: Blood Morphology Comment NOT SEEN (NOT SEEN); Platelet Estimate ADEQ; Urine White Blood Cell Casts OK
--- NOTE | 2018-12-29 19:56 | RAD REPORT ---
EXAM DESCRIPTION: CT - Head Brain Wo Cont - 12/29/2018 7:37 pm CLINICAL HISTORY: Headache, dizziness, frequent falls COMPARISON: None. TECHNIQUE: Axial 5 mm thick images of the head were obtained without IV contrast. All CT scans are performed using dose optimization technique as appropriate and may include automated exposure control or mA/KV adjustment according to patient size. FINDINGS: No intracranial hemorrhage, mass, edema or shift of mid-line structures. No acute infarcti on changes seen. No abnormal extra-axial fluid collections. Ventricles are normal. Mild to moderate f or age chronic ischemic changes are present. Atrophy is minimal. Mastoid air cells and visualized portions of the paranasal sinuses are clear. No acute bony findings. IMPRESSION: No acute intracranial finding. Mild to moderate chronic ischemic change and mild atrophy noted.
--- NOTE | 2018-12-29 20:03 | RAD REPORT ---
EXAM DESCRIPTION: CT - Chest Abd Pelvis Wo Con - 12/29/2018 7:37 pm CLINICAL HISTORY: Lung cancer history, chest pain, abdominal pain COMPARISON: CT chest September 21, 2018 TECHNIQUE: During dynamic enhancement using 100 milliliters nonionic IV contrast, axial 5 millimeter thick images of the chest, abdomen and pelvis were obtained. Biphasic technique was utilized through the abdomen. Oral contrast was administered. All CT scans are performed using dose optimization technique as appropriate and may include automated exposure control or mA/KV adjustment according to patient size. FINDINGS: Pneumothorax seen in September has resolved. There remains a minimal amount of pleural flui d and posterior gutter on the left. No new or enlarging lung parenchymal mass. No acute infiltrates s een. The infiltrative changes in the posterior right lung base have resolved. Emphysema changes are p resent. The No chest wall mass or abnormal axillary lymphadenopathy seen. Mediastinal and hilar ashish ons show no mass or lymphadenopathy. No significant cardiac finding. Postsurgical changes noted at t he left hilum. The liver, spleen and pancreas show no suspicious findings on noncontrast imaging. No acute gallbladd er or biliary tree finding. Hyperdensity within the lumen of the gallbladder is presumed to be enid ous excretion of contrast from a prior study. Gallstones can be occult on CT imaging. No hydronephrosis or obstructing calculus. Patient has a 5 mm nonobstructing calculus upper pole righ t kidney. There are multiple cysts of the left kidney largest 5 cm. Several upper pole cysts approxim ately 8-12 mm in size are homogeneous Dudley hyperdense in believed to be high protein content cysts. Fu ll assessment is limited in the absence of IV contrast. No adrenal abnormalities. No urinary bladder abnormality. Prostate gland and seminal vesicles not outside of normal range. No dilated bowel loops or focal ball bowel wall thickening. No free air, free fluid or inflammatory stranding. No hernia, mass or bulky lymphadenopathy. Dense vascular calcifications are present. Assessment is limited in the absence of contrast. Disc and bony degenerative changes are present. No compression fracture or acute bone finding identifiable. IMPRESSION: CT chest imaging shows left upper lobectomy surgical change. The pneumothorax from 2017 has resolved. Minimal pleural fluid is still present. No mass, lymphadenopathy or other suspicious CT chest finding. CT abdomen and pelvis imaging, as detailed above, shows no suspicious finding.
[2018-12-29] MEDS ORDERED: PAMIDRONATE DISOD 30 MG VIAL IV ONE ×2 (20:49)
--- NOTE | 2018-12-29 20:50 | EDPHYS ---
Physician Documentation [facility] Name: Angelo Narvaez Age: 63 yrs Sex: Male : 1955 Arrival Date: 12/29/2018 Time: 17:33 Bed 6 Private MD: Danial Wilkins ED Physician Osei Narvaez HPI: 12/29 19:17 This 63 yrs old Male presents to ER via Ambulatory with complaints of jr8 Abnormal Lab Results. 19:17 Patient was sent to ED by PCP for elevated Calcium level. History of Lung Cancer in jr8 past but has been free of cancer for the past year and a half. Stated that for the past couple of weeks has had constipation along with dizziness and frequent falls. Severity of symptoms: At their worst the symptoms were moderate in the emergency department the symptoms are unchanged. The patient has not experienced similar symptoms in the past. The patient has been recently seen by a physician:. Historical: - Allergies: 17:47 No Known Allergies; aa5 - Home Meds: 18:09 multivitamin oral cap daily [Active]; acetaminophen 500 mg Oral tab as needed [Active]; sv gabapentin 300 mg oral cap as needed [Active]; Iron CR 65 mg daily Oral [Active]; magnesium oxide 250 mg Oral tab daily [Active]; D3 1000 units daily [Active]; aspirin 81 mg Oral chew 1 tab once daily [Active]; amiodarone 200 mg Oral tab 1 tab once daily [Active]; Lasix 80 mg one day and then the next day 40 mg Oral [Active]; folic acid 1 mg Oral tab 1 tab once daily [Active]; prednisone 10 mg Oral tab once daily [Active]; Spiriva with HandiHaler 18 mcg inhalation CpDv 1 cap once daily [Active]; ProAir HFA 90 mcg/actuation inhalation HFAA [Active]; Vipul-Dur 24-200 daily Oral [Active]; Flexeril 5 mg Oral tab as needed [Active]; metoprolol succinate 50 mg oral Tb24 1 tab nightly [Active]; Xarelto 15 mg oral tab nightly [Active]; simvastatin 20 mg Oral tab 1 tab once daily [Active]; spironolactone 25 mg Oral tab 0.5 tab nightly [Active]; ipratropium-albuterol 0.5 mg-3 mg(2.5 mg base)/3 mL Inhl nebu [Active]; Perforomist 20 mcg/2 mL inhalation nebu [Active]; - PMHx: 17:47 COPD; HTN; Lung Cancer; Pneumothorax; aa5 17:47 Atrial Fib; aa5 - PSHx: 17:47 Left Pneumonectomy; aa5 - Immunization history:: Adult Immunizations up to date. - Ebola Screening: : No symptoms or risks identified at this time. - Social history:: Smoking status: Patient/guardian denies using tobacco, the patient reports quitting approximately 2 years ago. ROS: 19:22 Eyes: Negative for injury, pain, redness, and discharge, ENT: Negative for injury, jr8 pain, and discharge, Neck: Negative for injury, pain, and swelling, Cardiovascular: Negative for chest pain, palpitations, and edema, Back: Negative for injury and pain, MS/Extremity: Negative for injury and deformity, Skin: Negative for injury, rash, and discoloration. 19:22 Respiratory: Positive for shortness of breath, Negative for cough, dyspnea on exertion, sputum production, wheezing. 19:22 Abdomen/GI: Positive for abdominal pain, constipation, Negative for nausea, vomiting, and diarrhea, abdominal distension, anorexia, dysphagia, hematemesis, black/tarry stool, rectal pain, rectal bleeding, bowel incontinence, flatulence. 19:22 Neuro: Positive for dizziness, gait disturbance, Negative for altered mental status, headache, hearing loss, loss of consciousness, numbness, seizure activity, speech changes, syncope, near syncope, tingling, tinnitus, tremor, visual changes, weakness. Exam: 19:22 Eyes: Pupils equal round and reactive to light, extra-ocular motions intact. Lids and jr8 lashes normal. Conjunctiva and sclera are non-icteric and not injected. Cornea within normal limits. Periorbital areas with no swelling, redness, or edema. ENT: Nares patent. No nasal discharge, no septal abnormalities noted. Tympanic membranes are normal and external auditory canals are clear. Oropharynx with no redness, swelling, or masses, exudates, or evidence of obstruction, uvula midline. Mucous membranes moist. Neck: Trachea midline, no thyromegaly or masses palpated, and no cervical lymphadenopathy. Supple, full range of motion without nuchal rigidity, or vertebral point tenderness. No Meningismus. Cardiovascular: Regular rate and rhythm with a normal S1 and S2. No gallops, murmurs, or rubs. Normal PMI, no JVD. No pulse deficits. Respiratory: Lungs have equal breath sounds bilaterally, clear to auscultation and percussion. No rales, rhonchi or wheezes noted. No increased work of breathing, no retractions or nasal flaring. Abdomen/GI: Soft, non-tender, with normal bowel sounds. No distension or tympany. No guarding or rebound. No evidence of tenderness throughout. Back: No spinal tenderness. No costovertebral tenderness. Full range of motion. Skin: Warm, dry with normal turgor. Normal color with no rashes, no lesions, and no evidence of cellulitis. MS/ Extremity: Pulses equal, no cyanosis. Neurovascular intact. Full, normal range of motion. Neuro: Awake and alert, GCS 15, oriented to person, place, time, and situation. Cranial nerves II-XII grossly intact. Motor strength 5/5 in all extremities. Sensory grossly intact. Cerebellar exam normal. Normal gait. Vital Signs: 17:47 BP 152 / 94; Pulse 77; Resp 18 S; Temp 98.1(O); Pulse Ox 93% on R/A; Pain 0/10; aa5 18:41 BP 152 / 78; Pulse 71; Resp 17; Pulse Ox 98% on R/A; sv 19:52 BP 158 / 95; Pulse 77; Resp 16; Pulse Ox 94% on R/A; tl2 22:01 BP 124 / 72; Pulse 79; Resp 18; Pulse Ox 94% on R/A; tl2 22:45 BP 137 / 69; Pulse 75; Resp 18; Pulse Ox 94% on R/A; tl2 MDM: 18:00 Patient medically screened. [facility] 20:43 Data reviewed: vital signs, nurses notes, lab test result(s), EKG, radiologic studies, jr8 CT scan. Data interpreted: Pulse oximetry: on room air is 94 %. Interpretation: normal. Counseling: I had a detailed discussion with the patient and/or guardian regarding: the historical points, exam findings, and any diagnostic results supporting the discharge/admit diagnosis, lab results, radiology results, the need for further work-up and treatment in the hospital. 20:48 ED course: Dr. Byers and Dr. Richter both consulted. Dr. Son consulted and will admit .[facility] 12/29 18:16 Order name: Basic Metabolic Panel; Complete Time: 19:13 8 12/29 18:16 Order name: CBC with Diff; Complete Time: 19:40 8 12/29 18:16 Order name: LFT's; Complete Time: 19:13 8 12/29 18:16 Order name: Magnesium; Complete Time: 19:13 8 12/29 18:16 Order name: NT PRO-BNP; Complete Time: 19:13 8 12/29 18:16 Order name: PT-INR; Complete Time: 19:13 8 12/29 18:16 Order name: Troponin (emerg Dept Use Only); Complete Time: 19:13 [facility] 12/29 18:49 Order name: CBC Smear Scan; Complete Time: 19:40 [facility] 12/29 20:30 Order name: Pth,Intact; Complete Time: 21:30 [facility] 12/29 22:15 Order name: Comprehensive Metabolic Panel EDIN 12/29 22:15 Order name: Comprehensive Metabolic Panel [facility] 12/29 22:15 Order name: CBC with Automated Diff EDIN 12/29 22:15 Order name: CBC with Automated Diff EDIN 12/29 18:16 Order name: EKG; Complete Time: 18:16 [facility] 12/29 18:16 Order name: Cardiac monitoring; Complete Time: 18:30 [facility] 12/29 18:16 Order name: EKG - Nurse/Tech; Complete Time: 18:45 [facility] 12/29 18:16 Order name: IV Saline Lock; Complete Time: 18:30 [facility] 12/29 19:21 Order name: CT Chest Abdomen Pelvis W/O Contrast [facility] 12/29 19:22 Order name: Head Brain Wo Cont; Complete Time: 19:59 EDIN 12/29 19:22 Order name: Chest Abd Pelvis Wo Con; Complete Time: 20:16 EDMS 12/29 20:47 Order name: US Rp Exam Complete; Complete Time: 21:59 [facility] 12/29 22:15 Order name: CONS Physician Consult EDIN 12/29 22:15 Order name: CONS Pharmacy Consult EDIN 12/29 18:16 Order name: Labs collected and sent; Complete Time: 18:31 [facility] 12/29 18:16 Order name: O2 Per Protocol; Complete Time: 18:31 [facility] 12/29 18:16 Order name: O2 Sat Monitoring; Complete Time: : jr8 Administered Medications: 18:29 Drug: AtroVENT Aerosol 0.5 mg Route: Inhalation; sv 18:30 Drug: Albuterol 2.5 mg Route: Inhalation; sv 18:30 Drug: NS 0.9% 1000 ml Route: IV; Rate: 1000 ml; Site: right antecubital; sv 19:56 Follow up: IV Status: Completed infusion; IV Intake: 1000ml tl2 19:55 Drug: NS 0.9% 1000 ml Route: IV; Rate: 125 ml/hr; Site: right antecubital; tl2 12/30 00:03 Follow up: IV Status: Infusion continued upon admission tl2 12/29 20:51 Drug: NS 0.9% 1000 ml Route: IV; Rate: 500 ml; Site: right antecubital; tl2 23:00 Follow up: IV Status: Completed infusion; IV Intake: 1000ml tl2 20:51 Drug: Pamidronate 60 mg {Note: mixed in 1000 ml NS bolus and infused over 2 hours.} tl2 Route: IV; Rate: calculated rate; Site: right antecubital; 23:00 Follow up: IV Status: Completed infusion tl2 Disposition: 12/29/18 20:49 Hospitalization ordered by Brenda Son for Inpatient Admission. Preliminary diagnosis are Hypercalcemia, Hypermagnesemia, Acute kidney failure. - Bed requested for Telemetry/MedSurg (Inpatient). - Status is Inpatient Admission. tl2 - Condition is Fair. - Problem is new. - Symptoms have improved. UTI on Admission? No Addendum: 01/08/2019 07:20 Co-signature as Attending Physician, Osei Narvaez MD I agree with the assessment and c carr plan of care. Signatures: Dispatcher [employer] Ange Mix RN RN sv Anderson, Corey, MD MD cha Calderon, Audri RN RN aa5 Mateusz Calles PA PA jr8 Garcia, Cindy, RN RN cg Knox, Taylor, RN RN tl2 Corrections: (The following items were deleted from the chart) 12/29 17:57 17:47 PMHx: a fib; aa5 aa5 19:24 19:21 Head Brain Wo Cont+CT.RAD.BRZ ordered. EDMS EDMS 22:22 20:49 Hospitalization Ordered by Brenda Son MD for Inpatient Admission. Preliminary cg diagnosis is Hypercalcemia; Hypermagnesemia; Acute kidney failure. Bed requested for Telemetry/MedSurg (Inpatient). Status is Inpatient Admission. Condition is Fair. Problem is new. Symptoms have improved. UTI on Admission? No. jr8 12/30 00:03 12/29 22:22 12/29/2018 20:49 Hospitalization Ordered by Brenda Son MD for Inpatient tl2 Admission. Preliminary diagnosis is Hypercalcemia; Hypermagnesemia; Acute kidney failure. Bed requested for Telemetry/MedSurg (Inpatient). Status is Inpatient Admission. Condition is Fair. Problem is new. Symptoms have improved. UTI on Admission? No. cg
--- NOTE | 2018-12-29 20:50 | ER ---
Nurse's Notes [facility] Name: Angelo Narvaez Age: 63 yrs Sex: Male : 1955 Arrival Date: 12/29/2018 Time: 17:33 Bed 6 Private MD: Danial Wilkins Diagnosis: Hypercalcemia;Hypermagnesemia;Acute kidney failure Presentation: 12/29 17:45 Presenting complaint: Pt's family states "he's been constipated and nauseated for about aa5 7 to 8 days, he's been taking laxatives and an enema and he only had a very small bowel movement yesterday". Pt reports vomiting once Friday and none since then. Pt's family also states "he's been dizzy and falling frequently so Dr. Wilkins thinks he is dehydrated and he also said to come here because his calcium was high". 17:45 Transition of care: patient was not received from another setting of care. aa5 17:45 Method Of Arrival: Ambulatory aa 17:45 Acuity: STEPHIE 3 aa5 17:45 Onset of symptoms was December 2018. Risk Assessment: Do you want to hurt yourself or aa5 someone else? Patient reports no desire to harm self or others. Care prior to arrival: None. 18:00 Initial Sepsis Screen: Does the patient meet any 2 criteria? No. Patient's initial sv sepsis screen is negative. Does the patient have a suspected source of infection? No. Patient's initial sepsis screen is negative. Historical: - Allergies: 17:47 No Known Allergies; aa5 - Home Meds: 18:09 multivitamin oral cap daily [Active]; acetaminophen 500 mg Oral tab as needed [Active]; sv gabapentin 300 mg oral cap as needed [Active]; Iron CR 65 mg daily Oral [Active]; magnesium oxide 250 mg Oral tab daily [Active]; D3 1000 units daily [Active]; aspirin 81 mg Oral chew 1 tab once daily [Active]; amiodarone 200 mg Oral tab 1 tab once daily [Active]; Lasix 80 mg one day and then the next day 40 mg Oral [Active]; folic acid 1 mg Oral tab 1 tab once daily [Active]; prednisone 10 mg Oral tab once daily [Active]; Spiriva with HandiHaler 18 mcg inhalation CpDv 1 cap once daily [Active]; ProAir HFA 90 mcg/actuation inhalation HFAA [Active]; Vipul-Dur 24-200 daily Oral [Active]; Flexeril 5 mg Oral tab as needed [Active]; metoprolol succinate 50 mg oral Tb24 1 tab nightly [Active]; Xarelto 15 mg oral tab nightly [Active]; simvastatin 20 mg Oral tab 1 tab once daily [Active]; spironolactone 25 mg Oral tab 0.5 tab nightly [Active]; ipratropium-albuterol 0.5 mg-3 mg(2.5 mg base)/3 mL Inhl nebu [Active]; Perforomist 20 mcg/2 mL inhalation nebu [Active]; - PMHx: 17:47 COPD; HTN; Lung Cancer; Pneumothorax; aa5 17:47 Atrial Fib; aa5 - PSHx: 17:47 Left Pneumonectomy; aa5 - Immunization history:: Adult Immunizations up to date. - Ebola Screening: : No symptoms or risks identified at this time. - Social history:: Smoking status: Patient/guardian denies using tobacco, the patient reports quitting approximately 2 years ago. Screenin:48 Abuse screen: Denies threats or abuse. Denies injuries from another. Nutritional sv screening: No deficits noted. Tuberculosis screening: No symptoms or risk factors identified. Fall Risk None identified. Assessment: 17:59 General: Appears in no apparent distress. comfortable, well developed, Behavior is sv calm, cooperative, appropriate for age. Pain: Denies pain. Neuro: Level of Consciousness is awake, alert, obeys commands, Oriented to person, place, time, situation, Moves all extremities. Full function Gait is steady. Cardiovascular: Heart tones S1 S2 present Patient's skin is warm and dry. Rhythm is sinus rhythm. Respiratory: Airway is patent Respiratory effort is even, unlabored, Respiratory pattern is regular, symmetrical, Breath sounds with wheezes bilaterally. GI: Abdomen is round Stools are reported to be constipated. Reports constipation. Derm: Skin is pink, warm \\T\\ dry. 18:35 Reassessment: Patient appears in no apparent distress at this time. Patient and/or sv family updated on plan of care and expected duration. Pain level reassessed. Patient is alert, oriented x 3, equal unlabored respirations, skin warm/dry/pink. Patient states symptoms have improved. 19:52 General: Appears in no apparent distress. comfortable, Behavior is calm, cooperative, tl2 appropriate for age. Pain: Denies pain. Neuro: Level of Consciousness is awake, alert, obeys commands, Oriented to person, place, time, situation. Cardiovascular: Denies chest pain, Rhythm is sinus rhythm. Respiratory: Airway is patent Respiratory effort is even, unlabored, Respiratory pattern is regular, symmetrical. GI: Abdomen is round. : No signs and/or symptoms were reported regarding the genitourinary system. Derm: Skin is pink, warm \\T\\ dry. 21:00 Reassessment: Patient appears in no apparent distress at this time. Patient and/or tl2 family updated on plan of care and expected duration. Pain level reassessed. Patient is alert, oriented x 3, equal unlabored respirations, skin warm/dry/pink. 22:00 Reassessment: Patient appears in no apparent distress at this time. Patient and/or tl2 family updated on plan of care and expected duration. Pain level reassessed. Patient is alert, oriented x 3, equal unlabored respirations, skin warm/dry/pink. 12/30 00:00 Reassessment: Patient appears in no apparent distress at this time. Patient and/or tl2 family updated on plan of care and expected duration. Pain level reassessed. Patient is alert, oriented x 3, equal unlabored respirations, skin warm/dry/pink. pt stable for transport to floor. Vital Signs: 12/29 17:47 BP 152 / 94; Pulse 77; Resp 18 S; Temp 98.1(O); Pulse Ox 93% on R/A; Pain 0/10; aa5 18:41 BP 152 / 78; Pulse 71; Resp 17; Pulse Ox 98% on R/A; sv 19:52 BP 158 / 95; Pulse 77; Resp 16; Pulse Ox 94% on R/A; tl2 22:01 BP 124 / 72; Pulse 79; Resp 18; Pulse Ox 94% on R/A; tl2 22:45 BP 137 / 69; Pulse 75; Resp 18; Pulse Ox 94% on R/A; tl2 Vitals: 19:52 Cardiac Rhythm Assessment Sinus rhythm. tl2 ED Course: 17:33 Patient arrived in ED. mr 17:34 Tomas Sawant MD is Private Physician. mr 17:34 Danial Wilkins MD is Private Physician. mr 17:45 Arm band placed on Patient placed in an exam room, on a stretcher. aa5 17:48 Ange León RN is Primary Nurse. sv 17:48 Patient has correct armband on for positive identification. Bed in low position. Call sv light in reach. Door closed. Head of bed elevated. 17:54 Mateusz Calles PA is PHCP. jr8 17:55 Osei Narvaez MD is Attending Physician. jr8 17:55 Triage completed. aa5 18:00 supervisor fur floor worker on. Pulse ox on. NIBP on. sv 18:09 Nurse Practitioner and/or Physician Heel Buffer to see patient. sv 18:20 Initial lab(s) drawn, by me, sent to lab. Inserted saline lock: 20 gauge in right sv antecubital area, using aseptic technique. Blood collected. Flushed right antecubital with 5 ml normal saline. 18:41 EKG done, by ED staff, reviewed by Mateusz JOSEPH. sv 19:16 Report given to Leigh ZARAGOZA. sv 19:22 Primary Nurse role handed off by Ange León, NIK sv 19:[address] via stretcher. vm2 19:37 Head Brain Wo Cont In Process Unspecified. EDMS 19:37 Chest Abd Pelvis Wo Con In Process Unspecified. EDMS 19:37 CT completed. Patient tolerated procedure well. Patient moved back from CT. nj 19:55 Leigh Ramirez, RN is Primary Nurse. tl2 20:48 Brenda Son MD is Hospitalizing Provider. jr8 21:16 US Rp Exam Complete In Process Unspecified. EDMS 12/30 00:00 No provider procedures requiring assistance completed. Patient admitted, IV remains in tl2 place. Administered Medications: 12/29 18:29 Drug: AtroVENT Aerosol 0.5 mg Route: Inhalation; sv 18:30 Drug: Albuterol 2.5 mg Route: Inhalation; sv 18:30 Drug: NS 0.9% 1000 ml Route: IV; Rate: 1000 ml; Site: right antecubital; sv 19:56 Follow up: IV Status: Completed infusion; IV Intake: 1000ml tl2 19:55 Drug: NS 0.9% 1000 ml Route: IV; Rate: 125 ml/hr; Site: right antecubital; tl2 12/30 00:03 Follow up: IV Status: Infusion continued upon admission tl2 12/29 20:51 Drug: NS 0.9% 1000 ml Route: IV; Rate: 500 ml; Site: right antecubital; tl2 23:00 Follow up: IV Status: Completed infusion; IV Intake: 1000ml tl2 20:51 Drug: Pamidronate 60 mg {Note: mixed in 1000 ml NS bolus and infused over 2 hours.} tl2 Route: IV; Rate: calculated rate; Site: right antecubital; 23:00 Follow up: IV Status: Completed infusion tl2 Intake: 19:56 IV: 1000ml; Total: 1000ml. tl2 23:00 IV: 1000ml; Total: 2000ml. tl2 Outcome: 20:49 Decision to Hospitalize by Provider. jr8 12/30 00:00 Admitted to Tele accompanied by tech, via stretcher, room 425, with chart, Report tl2 called to NIK Bourne Condition: stable Discharge instructions given to patient, family, Instructed on the need for admit. 00:03 Patient left the ED. tl2 Signatures: Dispatcher [employer] Ange Mix, RN RN Renetta Ny mr Stallworth, Mckenna RN RN aa5 Mateusz Calles PA PA jr8 Leigh Ramirez RN RN tl2 Marek Macias [facility] Corrections: (The following items were deleted from the chart) 12/29 17:57 17:47 PMHx: a fib; aaBrenda aaBrenda 12/30 00:00 12/29 23:20 Reassessment: Patient appears in no apparent distress at this time. Patient tl2 and/or family updated on plan of care and expected duration. Pain level reassessed. Patient is alert, oriented x 3, equal unlabored respirations, skin warm/dry/pink. pt c/o pain to right shoulder, MD notified, new order see MAR tl2
--- NOTE | 2018-12-29 21:56 | RAD REPORT ---
EXAM DESCRIPTION: US - Renal Ultrasound-Complete - 12/29/2018 9:16 pm CLINICAL HISTORY: Acute renal failure COMPARISON: Ultrasound July 2018 FINDINGS: The right kidney measures 10.2 x 5.1 x 4.5 cm. The left kidney measures 10.2 x 5.1 x 4.9 cm. Cortical thickness is normal. Cortical echogenicity is increased in both kidneys typical for medi meeta renal disease. No hydronephrosis or solid mass. Multiple left renal cysts are present up to 5.5 c m in size. Finding is not substantially different from July. No bladder wall thickening or mass. No intraluminal stone or mass. IMPRESSION: No hydronephrosis or suspicious renal mass. Left renal cysts are present not substantially different from July 2018.
[2018-12-29] MEDS ORDERED: FUROSEMIDE 20 MG/ 2ML VIAL IV SCH (22:00)
[2018-12-29] MEDS ORDERED: MORPHINE 2 MG/ML SYR IV PRN (22:11)
[2018-12-29] MEDS ORDERED: ONDANSETRON 4 MG/2 ML VIAL IV PRN (22:11)
[2018-12-29] MEDS: NA CHLORIDE 0.9% 1,000 ML IV SCH (23:00)
[2018-12-29] MEDS ORDERED: ALBUTEROL 2.5 MG/3 ML NEB SOL NEB SCH (23:00)
[2018-12-29] MEDS ORDERED: FUROSEMIDE 20 MG/ 2ML VIAL ONE (23:29)
[2018-12-30] MEDS: NA CHLORIDE 0.9% 1,000 ML IV SCH ×4 (01:37→23:00)
[2018-12-30 06:12] LABS: Urine Appearance CLEAR; Urine Bilirubin NEGATIVE (NEG); Urine Blood NEGATIVE (NEG); Urine Color YELLOW; Urine Glucose NEGATIVE (NEG); Urine Microscopic Reflex NO UMIC; Urine Protein NEGATIVE (NEG); Urine Urobilinogen 0.2 mg/dL (0.2-1.0); Urine pH 6.5 (5.0-7.0)
[2018-12-30 06:23] LABS: Absolute Lymphocytes (CBC) 0.3 K/uL (0.7-4.9); Absolute Monocytes 0.6 K/uL (0.1-1.3); Absolute Neutrophil 6.1 K/uL (1.8-8.0); Basophils % 0.5 % (0-1.3); Eosinophils % 1.6 % (0-4.4); Hematocrit 33.8 % (39.6-49.0); Lymphocytes % 4.2 % (15.3-44.8); MPV 8.6 fL (7.6-11.3); Monocytes % 8.9 % (3.3-12.3); RBC Red Blood Cell Count 3.85 M/uL (4.33-5.43)
[2018-12-30 06:39] LABS: Albumin 3.2 g/dL (3.4-5.0); Bilirubin Total 0.4 mg/dL (0.2-1.0); Potassium 3.1 mmol/L (3.5-5.1)
[2018-12-30 06:54] LABS: Uric Acid 15.8 mg/dL (3.5-7.2)
--- NOTE | 2018-12-30 06:56 | EKG ---
Test Date: 2018-12-29 Test Time: 18:36:35 Technical Product Manager: SHYLA MEASUREMENT RESULTS: Intervals: Rate: 72 AK: 160 QRSD: 148 QT: 572 QTc: 626 [place]: P: 58 AK: 160 QRS: -51 T: 39 INTERPRETIVE STATEMENTS: Normal sinus rhythm Right bundle branch block Left anterior fascicular block Bifascicular block Septal infarct, age undetermined Abnormal ECG Compared to ECG 10/27/2018 08:50:43 Left anterior fascicular block now present Bifascicular block now present Sinus tachycardia no longer present Myocardial infarct finding still present Electronically Signed On 12-30-18 06:55:55 FABRIC DESIGNER by Nasir Bailey
[2018-12-30] MEDS ORDERED: INFLUENZA VACCINE (for 3y+) 0.5 ML DOSE IMVAC ONE (08:00)
[2018-12-30] MEDS: predniSONE 10 MG TAB PO SCH (08:37)
[2018-12-30] MEDS: METOPROLOL XL 50 MG TAB PO SCH ×2 (08:37→20:56)
[2018-12-30] MEDS: FOLIC ACID 1 MG TABLET PO SCH (08:37)
[2018-12-30] MEDS: FERROUS SULFATE 325 MG TAB PO SCH (08:37)
[2018-12-30] MEDS: AMIODARONE HCL 200 MG TAB PO SCH (08:38)
[2018-12-30] MEDS: THEOPHYLLINE SR 100 MG TAB PO SCH (08:38)
[2018-12-30] MEDS: TIOTROPIUM 5 SPRAYS/INHALER IH SCH (08:41)
[2018-12-30] MEDS ORDERED: MULTIVITAMIN TAB PO SCH (09:00)
[2018-12-30] MEDS ORDERED: HOME MED 1 EA UNK (Theophylline Anhydrous [Theo-24] 200 MG) PO SCH (09:00)
[2018-12-30] MEDS: ARFORMOTEROL TARTRATE 15 MCG/2 ML VIAL.NEB IH SCH ×2 (12:33→20:00)
[2018-12-30] MEDS ORDERED: NA CHLORIDE 0.9% 1,000 ML IV ONE (12:38)
[2018-12-30] MEDS ORDERED: FUROSEMIDE 40 MG/4 ML VIAL IV ONE (12:38)
[2018-12-30] MEDS ORDERED: KCL 20 MEQ/100 mL IVPB 20 MEQ/100 ML BAG IV SCH (14:00)
--- NOTE | 2018-12-30 14:13 | P.HP ---
Certification for Inpatient Patient admitted to: Inpatient With expected LOS: >2 Midnights Patient will require the following post-hospital care: None Practitioner: I am a practitioner with admitting privileges, knowledge of patient current condition, hospital course, and medical plan of care. Services: Services provided to patient in accordance with Admission requirements found in Title 42 Section 412.3 of the Code of Federal Regulations Patient History Date of Service: 12/30/18 Reason for admission: Hypercalcemia History of Present Illness: Pt is a 63yo who was admitted to the hospital with elevated calcium levels. Patient did not have significant confusion however his calcium was greater than 14. This was significantly elevated from his last calcium that was done a few weeks ago. He has been on a calcium supplement as well as vitamin-D. However he does have a history of malignancy and will check a intact PTH as well as a PTH related peptide level. Also check vitamin-D levels. Will hydrate gently but hold off on Lasix per Nephrology. Consult nephrology for in the morning Allergies No Known Allergies Allergy (Verified 04/26/18 21:47) Home Medications: Acetaminophen [Pain Reliever] 2 tab PO PRN PRN 04/26/18 Albuterol Sulfate [Proair Hfa] 2 puff IH Q4HP PRN 04/26/18 Aspirin [Adult Aspirin] 1 tab PO DAILY 04/26/18 Cholecalciferol (Vitamin D3) [Vitamin D3] 1 cap PO DAILY 04/26/18 Folic Acid 3 tab PO DAILY 04/26/18 Gabapentin [Neurontin*] 300 mg PO BID PRN 04/26/18 Magnesium Oxide [Magnesium] 250 mg PO DAILY 04/26/18 Multivitamin [One-Daily Multi-Vitamin] 1 tab PO DAILY 04/26/18 Perforomist 20 mcg NEB BID 04/26/18 Rivaroxaban [Xarelto*] 1 tab PO BEDTIME 04/26/18 Simvastatin 20 mg PO BEDTIME 04/26/18 Spironolact/Hydrochlorothiazid [Spironolactone-Hctz 25-25 Tab] 12.5 mg PO BEDTIME 04/26/18 Albuterol Ipratropium 2.5 mg NEB Q6HP PRN 04/27/18 Amiodarone HCl [Cordarone Tab] 200 mg PO DAILY 09/19/18 Cyclobenzaprine [Flexeril] 5 mg PO PRN PRN 09/19/18 Furosemide 80 mg PO SEECOM 09/19/18 Tiotropium [Spiriva Handihaler] 1 puff IH DAILY 09/19/18 Metoprolol Succinate [Toprol Xl*] 50 mg PO BID 09/21/18 Theophylline Anhydrous [Vipul-24] 200 mg PO DAILY #30 cap.er.24h 09/24/18 Ferrous Sulfate [Iron] 325 mg PO DAILY 12/30/18 Furosemide [Lasix] 40 mg PO SEECOM 12/30/18 predniSONE [Deltasone*] 10 mg PO DAILY 12/30/18 - Past Medical/Surgical History Has patient received pneumonia vaccine in the past: Yes Diabetic: No -: HTN -: COPD -: Atrial fibrillation -: Lung cancer(does not know which type) -: RA -: left upper lung lobectomy with lymph node resection -: appendectomy -: tonsillectomy - Family History Father Medical History: Heart disease, Hypertension Notes: at 75 yo Mother Notes: no medical history, still living Brother Medical History: Hypertension, Cancer Notes: melanoma Sister Medical History: Other (see notes) Notes: fibromyalgia - Social History Smoking Status: Former smoker Alcohol use: Yes CD- Drugs: No Caffeine use: Yes Place of Residence: Home Review of Systems 10-point ROS is otherwise unremarkable Physical Examination - Vital Signs Temperature: 98.1 F Blood Pressure: 147/66 Pulse: 85 Respirations: 20 Pulse Ox (%): 91 - Physical Exam General: Alert, In no apparent distress, Oriented x3 HEENT: Atraumatic, PERRLA, Mucous membr. moist/pink, EOMI, Sclerae nonicteric Neck: Supple, 2+ carotid pulse no bruit, No LAD, Without JVD or thyroid abnormality Respiratory: Clear to auscultation bilaterally, Normal air movement Cardiovascular: Regular rate/rhythm, Normal S1 S2 Gastrointestinal: Normal bowel sounds, Soft and benign, Non-distended, No tenderness Musculoskeletal: No clubbing, No swelling, No tenderness Integumentary: No rashes Neurological: Normal gait, Normal speech, Normal strength at 5/5 x4 extr, Normal tone, Sensation intact, Cranial nerves 3-12 intact, Normal affect Lymphatics: No axilla or inguinal lymphadenopathy - Studies Laboratory Data (last 24 hrs) 12/29/18 18:20: PT 20.1 H, INR 1.74 12/29/18 18:20: WBC 11.6 H, Hgb 13.7, Hct 40.8, Plt Count 295 12/29/18 18:20: Sodium 133 L, Potassium 3.6, BUN 92 H, Creatinine 4.94 H, Glucose 119 H, Magnesium 3.3 H D, Total Bilirubin 0.5, AST 27, ALT 30, Alkaline Phosphatase 59 Assessment & Plan - Problems (Diagnosis) (1) SHARITA (acute kidney injury) Current Visit: Yes Status: Acute (2) Hypercalcemia Current Visit: Yes Status: Acute (3) COPD exacerbation Onset Date: 04/27/18 Current Visit: No Status: Acute (4) Atrial fibrillation Current Visit: No Status: Chronic Qualifiers: Atrial fibrillation type: chronic Qualified Code(s): I48.2 - Chronic atrial fibrillation (5) Chronic anticoagulation Current Visit: No Status: Chronic (6) Chronic renal disease Current Visit: No Status: Chronic Qualifiers: Chronic kidney disease stage: stage 3 (moderate) Qualified Code(s): N18.3 - Chronic kidney disease, stage 3 (moderate) (7) History of lung cancer Onset Date: 04/27/18 Current Visit: No Status: Chronic - Plan Plan: 1. Gentle hydration 2. Labs to monitor vitamin-D level, intact PTH, PTH related peptide, may need to check ionized calcium 3. Nephrology consultation 4. Monitor neurologic status 5. Monitor on telemetry 6. Monitor electrolytes and CBCs 7. GI and DVT prophylaxis Discharge Plan: Home Plan to discharge in: Greater than 2 days - Advance Directives Does patient have a Living Will: No Does patient have a Durable POA for Healthcare: No - Code Status/Comfort Care Code Status Assessed: Yes Code Status: Full Code Critical Care: No Time Spent Managing PTS Care (In Minutes): 45
--- NOTE | 2018-12-30 18:28 | CON ---
Date of Consultation: 12/30/2018 Additional Consulting Physician: Brenda Son MD Reason For Consultation: Elevated BUN and creatinine, hypercalcemia, electrolyte imbalance. History Of Present Illness: This is a pleasant 63-year-old gentleman, well known to me from the [facility] with significant past medical history of lung cancer, status post lobectomy and chemo, complicated with pneumothorax, hypertension, hyperlipidemia, AFib, COPD, chronic kidney disease with baseline cr eatinine back in early December, 2 to 2.4 and GFR of 27 to 34. The patient according to him for the last 1 week started developing some constipation with abdominal pain, no nausea or vomiting. For mali t reason, the patient took Fleet Enema. The patient then because of no improvement he went [facility]. Primary care sent him to the ER for evaluation. In the ER, primary workup showed hyperc alcemia, 14.5, with acute kidney injury, creatinine 4.9, GFR of 12. For that reason, we have been co nsulted. Over the night, we started the patient on aggressive hydration. Apparently, the patient wa s taking Lasix, hydrochlorothiazide, vitamin D and calcium. We stopped all the above and started agg ressive hydration, the patient gradually started to recover, had good urine output. The patient rece ived pamidronate, calcium dropped from 14.4 to 12.3, creatinine improved from 4.9 to 4.1, GFR from 12 to 15. The patient is producing good urine output. The patient denied any nausea, any vomiting, st ill has constipation. Past Medical History: Includes, 1.Hypertension. 2.COPD. 3.AFib. 4.Lung cancer, status post lobectomy and chemo. Social History: Ex-smoker. Active alcohol. Denies drug abuse. Family History: Positive for hypertension. Past Surgical History: Includes lobectomy and appendectomy. Allergies: NO KNOWN DRUG ALLERGY. Home Medications: Include, 1.Vitamin D. 2.Prednisone. 3.Spiriva. 4.Theophylline. 5.Spironolactone with hydrochlorothiazide. 6.Xarelto. 7.Multivitamin. 8.Metoprolol. 9.Gabapentin. 10.Lasix alternating 80 and 40. 11.Amiodarone. 12.Tylenol. Current Medications: IV fluid, amiodarone, ferrous sulfate, metoprolol, multivitamin, pre dnisone, and theophylline. Review of Systems: Head and Neck: No red eye. No ear pain. GI: Has abdominal pain, has constipation. : No polyuria, no dysuria, no hematuria. Ride Operator: Not applicable. Respiratory: No shortness of breath. Cardiovascular: Occasional leg swelling. Endocrine: No polydipsia. Skin: No rash. Neurologic: No neuropathy. No weakness. Musculoskeletal: Has low back pain. Physical Examination: Vital Signs: When I saw the patient, blood pressure 147/66, pulse of 85, afebrile. Chest: Clear to auscultation. Heart: S1 and S2. Regular rhythm. Abdomen: Soft, nontender. Extremities: No edema. Neurologic: Alert and oriented x3, nonfocal. Laboratory Data: WBC 7.1, H and H of 11.2 and 33.8, platelets 244. Sodium 139, potassium 3.1, bicar b 33, BUN 79, creatinine 4.1, GFR of 15, calcium 12.3, PTH 42. Assessment And Plan: 1.Acute kidney injury secondary multifactorial secondary to dehydration, over-diuresis, superimposed with calcium diuresis, superimposed with the Fleet Enema. Obstructive uropathy has been ruled out a s by the ultrasound. I am going to go ahead and bolus the patient with another liter, then single do se of Lasix and we will monitor the patient. I do not see any need to initiate any renal replacement therapy for the time being. 2.Hypercalcemia secondary to over-diuresis, hydrochlorothiazide and supplement PTH not appropriately suppressed. I am going to go ahead and get a followup vitamin D level. We will continue hydration. The patient already received pamidronate. We will give 1 L of normal saline and 40 of Lasix and we will follow up. 3.Hypokalemia, we will supplement cautiously. 4.Anemia. Currently hemoglobin and hematocrit are stable. 5.Dehydration. Continue hydration. 6.Lung cancer. Follow up with Pulmonary. Thank you Dr. Son for allowing us to participate in the care of your patient. LALITA/RYAN Voice ID: [id number] Report ID: [id number]
[2018-12-30] MEDS: ATORVASTATIN 10 MG TAB PO SCH (20:55)
[2018-12-30] MEDS: RIVAROXABAN 15 MG TABLET PO SCH (20:57)
[2018-12-30] MEDS ORDERED: HOME MED 1 EA UNK (Simvastatin [Simvastatin] 20 MG) PO SCH (21:00)
[2018-12-30] MEDS: IPRATROPIUM BROM 0.5MG/2.5ML NEB SCH (21:40)
[2018-12-31] MEDS: IPRATROPIUM BROM 0.5MG/2.5ML NEB SCH ×4 (01:26→20:00)
[2018-12-31 04:27] LABS: Albumin 2.8 g/dL (3.4-5.0); Phosphorus 1.5 mg/dL (2.5-4.9); Potassium 3.1 mmol/L (3.5-5.1)
[2018-12-31] MEDS: ACETAMINOPHEN 500 MG TAB PO PRN ×2 (04:35→18:34)
[2018-12-31] MEDS: NA CHLORIDE 0.9% 1,000 ML IV SCH ×3 (05:46→14:19)
[2018-12-31] MEDS: METOPROLOL XL 50 MG TAB PO SCH ×2 (09:00→21:37)
[2018-12-31] MEDS: ARFORMOTEROL TARTRATE 15 MCG/2 ML VIAL.NEB IH SCH ×2 (09:05→20:00)
[2018-12-31] MEDS: TIOTROPIUM 5 SPRAYS/INHALER IH SCH (10:24)
[2018-12-31] MEDS: FERROUS SULFATE 325 MG TAB PO SCH (10:29)
[2018-12-31] MEDS: FOLIC ACID 1 MG TABLET PO SCH (10:29)
[2018-12-31] MEDS: AMIODARONE HCL 200 MG TAB PO SCH (10:29)
[2018-12-31] MEDS: THEOPHYLLINE SR 100 MG TAB PO SCH (10:29)
[2018-12-31] MEDS: predniSONE 10 MG TAB PO SCH (10:30)
[2018-12-31] MEDS ORDERED: FUROSEMIDE 40 MG/4 ML VIAL IV ONE (12:47)
[2018-12-31] MEDS ORDERED: POTASSIUM CL 40 MEQ in NA CHLORIDE 0.9% 500 ML IV SCH (13:00)
--- NOTE | 2018-12-31 18:56 | PN ---
Date of Progress Note: 12/31/2018 Subjective: The patient is doing much better, slightly shortness of breath. Yesterday, we had to diurese the patient after the bolus. Physical Examination: Vital Signs: Blood pressure 117/63, pulse of 69. The patient had good urine output of 1400. Chest: Clear to auscultation. Heart: S1 and S2, regular. Abdomen: Soft, nontender. Extremities: Trace edema. Laboratory Data: H and H of 11.2 and 33.8. Sodium 142, potassium 3.1, bicarb 29, BUN 65, creatinine 3.3, _ calcium down to 10.5, phosphorus 1.5. Current Medications: The patient on it includes Spiriva, ferrous sulfate, Xarelto, amiodarone, atorvastatin, metoprolol 50 b.i.d., breathing treatment, folic acid, Zofran, IV fluid 125 per hour. Assessment And Plan: 1. Acute kidney injury secondary to multifactorial, Fleet Enema induced/ calcium diuresis, prerenal superimposed with Lasix the patient started being on the normal volume side. I am going to decrease IV fluid to 75. We will give the patient another dose of Lasix today and we will monitor the patient. 2. hyper Ca supplement and vitamin D toxicity. I am going to hold vitamin D for the time being. We will diurese the patient again today and we will monitor. We will follow up vitamin D level. We will hold on any supplements for the time being. 3. Hypertension, controlled, optimal. Keep holding hydrochlorothiazide and MAXIMO inhibitor for the time being given the acute kidney injury. 4. Hypokalemia, we will supplement. HARPAL Voice ID: [id number] Report ID: [id number] MTDD
--- NOTE | 2018-12-31 20:32 | PN ---
Date of Progress Note: 12/31/2018 The patient states he feels about the same despite the fact that his calcium is now back to normal. He has become hypokalemic. This will be corrected. Nephrology felt it was a combination of multiple medications and diuretics that he is on and this will be modified and followed closely with blood te sts. Possibility of him going home in the next day or so. HR/MODL Voice ID: [id number] Report ID: [id number]
[2018-12-31] MEDS: ATORVASTATIN 10 MG TAB PO SCH (21:37)
[2018-12-31] MEDS: RIVAROXABAN 15 MG TABLET PO SCH (21:37)
[2019-01-01] MEDS: NA CHLORIDE 0.9% 1,000 ML IV SCH (05:24)
[2019-01-01 06:39] LABS: Albumin 2.9 g/dL (3.4-5.0); Potassium 3.4 mmol/L (3.5-5.1)
[2019-01-01] MEDS: ARFORMOTEROL TARTRATE 15 MCG/2 ML VIAL.NEB IH SCH ×2 (08:20→20:00)
[2019-01-01] MEDS: IPRATROPIUM BROM 0.5MG/2.5ML NEB SCH ×3 (08:20→20:00)
[2019-01-01] MEDS: THEOPHYLLINE SR 100 MG TAB PO SCH (08:28)
[2019-01-01] MEDS: FERROUS SULFATE 325 MG TAB PO SCH (08:29)
[2019-01-01] MEDS: METOPROLOL XL 50 MG TAB PO SCH ×2 (08:29→20:59)
[2019-01-01] MEDS: FOLIC ACID 1 MG TABLET PO SCH (08:30)
[2019-01-01] MEDS: predniSONE 10 MG TAB PO SCH (08:30)
[2019-01-01] MEDS: TIOTROPIUM 5 SPRAYS/INHALER IH SCH (08:31)
[2019-01-01] MEDS: AMIODARONE HCL 200 MG TAB PO SCH (08:31)
[2019-01-01] MEDS ORDERED: NACHLORIDE 0.45% 1,000 ML IV SCH (11:00)
[2019-01-01] MEDS ORDERED: POTASSIUM PHOS IN 0.9 % NACL 15 MMOL/250 ML BAG IV ONE (11:05)
--- NOTE | 2019-01-01 11:23 | P.PN ---
Subjective Date of Service: 01/01/19 Chief Complaint: Hypercalcemia Pt with SOB will repeat cXR consider pul evaluation Na and Chloride elevated , likely saline induced will change fluid to 1/2 NS ' hypophosphatemia , will replace High ca with low Phos , PTh not suppressed will order neck US high Bp , will start on norvasc Physical Examination - Vital Signs Temperature: 98.5 F Blood Pressure: 188/91 Pulse: 77 Respirations: 16 Pulse Ox (%): 97 - Physical Exam General: Oriented x3, Mild distress HEENT: Atraumatic Neck: Supple, Without JVD or thyroid abnormality Respiratory: Crackles/rales Cardiovascular: No edema, Abnormal S3 Gastrointestinal: Normal bowel sounds, Soft and benign Assessment And Plan - Current Problems (Diagnosis) (1) SHARITA (acute kidney injury) Current Visit: Yes Status: Acute (2) Hypercalcemia Current Visit: Yes Status: Acute (3) Atrial fibrillation Current Visit: No Status: Chronic Qualifiers: Atrial fibrillation type: chronic Qualified Code(s): I48.2 - Chronic atrial fibrillation - Plan Assessment And Plan: SHARITA improving likely due to dehydration baseline ~2.0 uS: no hydro hypokalemia diuresis +/- theophylline will replace hypophopahtemia and hypercalcemia PTH 45 , not fully suppressed will replace phos ca wnl now will order neck US HTn will start Norvasc
[2019-01-01] MEDS: cloNIDine HCl 0.1 MG TAB PO PRN (11:40)
--- NOTE | 2019-01-01 12:22 | P.CNS ---
Date of Consult: 01/01/19 Reason for Consult: COPD and hypercalcemia Chief Complaint: Shortness History of Present Illness: Patient is 63 years of age with a history of terminal COPD history of lung cancer was admitted to the hospital with hypercalcemia he has been having progressive dyspnea since this pneumothorax still very short of breath his kidney function abnormal his renal function has improved with IV fluids / patient is very apprehensive short of breath Allergies No Known Allergies Allergy (Verified 04/26/18 21:47) Home Medications: Acetaminophen [Pain Reliever] 2 tab PO PRN PRN 04/26/18 Albuterol Sulfate [Proair Hfa] 2 puff IH Q4HP PRN 04/26/18 Aspirin [Adult Aspirin] 1 tab PO DAILY 04/26/18 Cholecalciferol (Vitamin D3) [Vitamin D3] 1 cap PO DAILY 04/26/18 Folic Acid 3 tab PO DAILY 04/26/18 Gabapentin [Neurontin*] 300 mg PO BID PRN 04/26/18 Magnesium Oxide [Magnesium] 250 mg PO DAILY 04/26/18 Multivitamin [One-Daily Multi-Vitamin] 1 tab PO DAILY 04/26/18 Perforomist 20 mcg NEB BID 04/26/18 Rivaroxaban [Xarelto*] 1 tab PO BEDTIME 04/26/18 Simvastatin 20 mg PO BEDTIME 04/26/18 Spironolact/Hydrochlorothiazid [Spironolactone-Hctz 25-25 Tab] 12.5 mg PO BEDTIME 04/26/18 Albuterol Ipratropium 2.5 mg NEB Q6HP PRN 04/27/18 Amiodarone HCl [Cordarone Tab] 200 mg PO DAILY 09/19/18 Cyclobenzaprine [Flexeril] 5 mg PO PRN PRN 09/19/18 Furosemide 80 mg PO SEECOM 09/19/18 Tiotropium [Spiriva Handihaler] 1 puff IH DAILY 09/19/18 Metoprolol Succinate [Toprol Xl*] 50 mg PO BID 09/21/18 Theophylline Anhydrous [Vipul-24] 200 mg PO DAILY #30 cap.er.24h 09/24/18 Ferrous Sulfate [Iron] 325 mg PO DAILY 12/30/18 Furosemide [Lasix] 40 mg PO SEECOM 12/30/18 predniSONE [Deltasone*] 10 mg PO DAILY 12/30/18 - Past Medical/Surgical History Diabetic: No -: HTN -: COPD -: Atrial fibrillation -: Lung cancer(does not know which type) -: RA -: left upper lung lobectomy with lymph node resection -: appendectomy -: tonsillectomy - Family History Father Medical History: Heart disease, Hypertension Notes: at 75 yo Mother Notes: no medical history, still living Brother Medical History: Hypertension, Cancer Notes: melanoma Sister Medical History: Other (see notes) Notes: fibromyalgia - Social History Alcohol use: Yes CD- Drugs: No Caffeine use: Yes Place of Residence: Home Review of Systems General: Weakness Respiratory: Cough, Shortness of Breath Physical Examination Temp Pulse Resp BP Pulse Ox 98.5 F 80 16 200/93 H 97 01/01/19 12:00 01/01/19 12:00 01/01/19 12:00 01/01/19 12:00 01/01/19 12:00 General: Alert, Moderate distress Neck: Supple Respiratory: Clear to auscultation bilaterally, Diminished, Expiratory wheezes Cardiovascular: No edema, Regular rate/rhythm Gastrointestinal: Normal bowel sounds, Soft and benign - Problems (1) COPD exacerbation Onset Date: 04/27/18 Current Visit: No Status: Acute Plan: Patient is 63 years of age with a history of lung cancer terminal COPD admitted with hypercalcemia CT scan shows no evidence of pneumonia or lung mass there is no pneumothorax CT scan of the abdomen is also negative his renal function is improving calcium is back to normal patient is anti coagulated CBC is normal continue with bronchodilators I have increased his steroids and Dalresp patient has severe hypertension I have also added some hydralazine amlodipine increased oxygenation satisfactory
[2019-01-01] MEDS: ROFLUMILAST 500 MCG TABLET PO SCH (12:42)
[2019-01-01] MEDS: METHYLPREDNISOLONE 40 MG INJ IV SCH ×2 (12:42→16:16)
[2019-01-01] MEDS: HYDRALAZINE HCL 25 MG TABLET PO SCH ×2 (12:42→21:00)
--- NOTE | 2019-01-01 12:52 | RAD REPORT ---
EXAM DESCRIPTION: US - Thyroid Para Parotid Gland - 01/01/2019 12:40 pm CLINICAL HISTORY: R93.89 COMPARISON: None. FINDINGS: A 3 mm cyst is seen in the anterior mid right thyroid lobe. No other right-sided nodules s een. Right lobe measures 4.7 x 1.8 x 1.5 cm. Left lobe measures 4.2 x 2.2 x 1.5 cm. In the deep posterior margin of the lower left lobe there is a n 8 x 6 x 3 millimeter heterogeneous hypoechoic focus. This nodular finding is at or just outside of the deep capsular margin of the thyroid lobe. A parathyroid adenoma cannot be excluded given the hype rcalcemia history. IMPRESSION: An 8 x 6 x 3 mm heterogeneous hypoechoic focus is present deep margin of the lower left lobe. In a patient with hypercalcemia, parathyroid adenoma is not excluded.
--- NOTE | 2019-01-01 15:39 | RAD REPORT ---
EXAM DESCRIPTION: RAD - Chest Single View - 01/01/2019 3:04 pm CLINICAL HISTORY: possible fluid overload Chest pain. COMPARISON: Chest Pa And Lat (2 Views) dated 11/10/2018; Chest Single View dated 10/27/2018; Chest Sin gle View dated 10/27/2018; Chest Pa And Lat (2 Views) dated 10/05/2018 FINDINGS: Portable technique limits examination quality. Patchy opacity is seen in the left base likely a combination of pleural fluid and atelectasis/infiltr ate. The heart is normal in size. No displaced fractures. IMPRESSION: Opacity in the left lung base is likely combination of mild pleural effusion and pneumon ia/infiltrate.
[2019-01-01] MEDS ORDERED: ALBUTEROL INHALER 60 PUFF/8 GM IH SCH (21:00)
[2019-01-01] MEDS: ATORVASTATIN 10 MG TAB PO SCH (21:00)
[2019-01-01] MEDS: RIVAROXABAN 15 MG TABLET PO SCH (21:05)
[2019-01-01] MEDS ORDERED: SODIUM PHOSPHATE 10 MM in NA CHLORIDE 0.9% 250 ML IV ONE (23:00)
--- NOTE | 2019-01-02 00:50 | PN ---
Date of Progress Note: 01/01/2019 The patient became increasingly dyspneic today, was seen by Pulmonary who increased his steroids and since that time he has felt somewhat better. Calcium is now normal. There is some problem with regu lation of his blood pressure. However, I am sure it is secondary to his changing the medication when he was hypercalcemic. Once he is stable with his blood pressure and electrolytes he should be able to be discharged possibly in the morning. HR/MODL Voice ID: [id number] Report ID: [id number]
[2019-01-02] MEDS: ACETAMINOPHEN 500 MG TAB PO PRN (01:04)
[2019-01-02] MEDS: METHYLPREDNISOLONE 40 MG INJ IV SCH ×2 (01:05→09:21)
[2019-01-02] MEDS ORDERED: POTASSIUM PHOS IN 0.9 % NACL 0 MMOL/0 ML BAG IV ONE (01:25)
[2019-01-02] MEDS: IPRATROPIUM BROM 0.5MG/2.5ML NEB SCH ×4 (02:00→20:00)
[2019-01-02 05:42] LABS: Phosphorus 2.4 mg/dL (2.5-4.9); Potassium 3.9 mmol/L (3.5-5.1)
[2019-01-02 08:01] LABS: Phosphorus 2.3 mg/dL (2.5-4.9); Uric Acid 9.9 mg/dL (3.5-7.2)
[2019-01-02] MEDS: ARFORMOTEROL TARTRATE 15 MCG/2 ML VIAL.NEB IH SCH ×2 (08:24→20:00)
[2019-01-02] MEDS ORDERED: SODIUM PHOSPHATE 10 MM in NA CHLORIDE 0.9% 250 ML IV ONE (09:00)
[2019-01-02] MEDS ORDERED: AMLODIPINE 5 MG TAB PO SCH (09:00)
[2019-01-02] MEDS: AMLODIPINE 10 MG TAB PO SCH (09:21)
[2019-01-02] MEDS: AMIODARONE HCL 200 MG TAB PO SCH (09:21)
[2019-01-02] MEDS: FOLIC ACID 1 MG TABLET PO SCH (09:21)
[2019-01-02] MEDS: FERROUS SULFATE 325 MG TAB PO SCH (09:22)
[2019-01-02] MEDS: HYDRALAZINE HCL 25 MG TABLET PO SCH ×2 (09:22→21:15)
[2019-01-02] MEDS: METOPROLOL XL 50 MG TAB PO SCH ×2 (09:22→21:14)
[2019-01-02] MEDS: ROFLUMILAST 500 MCG TABLET PO SCH (09:22)
--- NOTE | 2019-01-02 09:38 | P.PN ---
Subjective Date of Service: 01/02/19 Chief Complaint: Shortness of breath No change she complains of dyspnea on minimal exertion in fact this started once he was discharged from [facility] after pneumothorax is never recovered Review of Systems General: Weakness Respiratory: Shortness of Breath Physical Examination - Vital Signs Temperature: 98.5 F Blood Pressure: 165/77 Pulse: 64 Respirations: 20 Pulse Ox (%): 97 - Physical Exam General: Alert, Oriented x3, Mild distress Respiratory: Clear to auscultation bilaterally, Diminished Cardiovascular: No edema, Regular rate/rhythm Assessment & Plan - Problems (Diagnosis) (1) COPD exacerbation Onset Date: 04/27/18 Current Visit: No Status: Acute Plan: Patient is 63 years of age admitted with COPD exacerbation of order some ABGs trial of BiPAP patient has terminal COPD patient's kidney function is improved hypercalcemia corrected complaining of insomnia of reduce the dose of his prednisone change the timing to 5:00 p.m. he may qualify for a noninvasive vent
[2019-01-02 10:13] LABS: Vitamin D 1,25-Dihydroxy Total 8 pg/mL (18-72); Vitamin D,1,25-OH2, D2 <8 pg/mL
[2019-01-02 10:49] LABS: Arterial Blood Carboxyhemoglob 1.3 % (0-1.5); Blood Gas Oxyhemoglobin 95.4 % (94-97); Blood O2 Saturation 97.4 % (92-98.5)
--- NOTE | 2019-01-02 15:49 | PN ---
Date of Progress Note: 01/02/2019 History Of Present Illness: The patient still have shortness of breath, seen by Pulmonary, diagnosed with COPD exacerbation. Physical Examination: Vital Signs: Blood pressure 152/73, pulse of 92. Chest: Faint wheezing bilateral. Heart: S1, S2 regular. Abdomen: Soft, nontender. Extremities: No edema. Laboratory Data: H and H 11.2/33.8. Sodium 142, potassium 3.9, bicarb 21, BUN 31, creatinine of 2, continue to improve; GFR of 32; phosphorus 2.3; calcium 8.5. Assessment And Plan: 1.Acute kidney injury secondary to prerenal, secondary to calcium, diuresis recovering back close to his baseline as the patient's baseline is around 2. 2.Hypertension, better controlled. We will follow up. 3.Hypercalcemia, possible secondary to primary hyperparathyroidism, supported with the finding on th e ultrasound. I am going to do nuclear medicine cisternogram to localize the adenoma. 4.Chronic obstructive pulmonary disease exacerbation as by Pulmonary. 5.Hypokalemia, resolved. HARPAL Voice ID: [id number] Report ID: [id number]
--- NOTE | 2019-01-02 16:13 | PN ---
Date of Progress Note: 01/02/2019 The patient states he could not tolerate the BiPAP. However, his oxygen saturations at rest are norm al. Renal function has improved considerably, as are the rest of his chemistries. If in fact the cre atinine drops further, he could possibly be discharged on new diuretic regimen for his blood pressure issues as well. HR/MODL Voice ID: [id number] Report ID: [id number]
[2019-01-02] MEDS: predniSONE 20 MG TAB PO SCH (16:37)
[2019-01-02] MEDS: RIVAROXABAN 15 MG TABLET PO SCH (21:15)
[2019-01-02] MEDS: ATORVASTATIN 10 MG TAB PO SCH (21:15)
[2019-01-03] MEDS: IPRATROPIUM BROM 0.5MG/2.5ML NEB SCH ×4 (02:00→20:00)
[2019-01-03 05:45] LABS: Absolute Lymphocytes (CBC) 0.2 K/uL (0.7-4.9); Absolute Monocytes 0.6 K/uL (0.1-1.3); Hematocrit 33.2 % (39.6-49.0); Lymphocytes % 1.5 % (15.3-44.8); MPV 7.9 fL (7.6-11.3); Monocytes % 5.7 % (3.3-12.3); RBC Red Blood Cell Count 3.78 M/uL (4.33-5.43)
[2019-01-03 06:53] LABS: BUN Blood Urea Nitrogen 41 mg/dL (7-18); Bicarbonate 23 mmol/L (21-32); Folic Acid, (Folate) > 20.0 ng/mL (3.1-17.5); Glucose Level 112 mg/dL (74-106); Magnesium 1.8 mg/dL (1.8-2.4); Phosphorus 2.3 mg/dL (2.5-4.9); Potassium 3.6 mmol/L (3.5-5.1); Sodium Level 143 mmol/L (136-145)
[2019-01-03] MEDS: ARFORMOTEROL TARTRATE 15 MCG/2 ML VIAL.NEB IH SCH ×2 (07:55→20:00)
[2019-01-03 08:51] LABS: Blood Morphology Comment NOTED (NOT SEEN); Platelet Estimate ADEQ
[2019-01-03 08:52] LABS: Rouleau NOTED
[2019-01-03] MEDS: FERROUS SULFATE 325 MG TAB PO SCH (09:09)
[2019-01-03] MEDS: FOLIC ACID 1 MG TABLET PO SCH (09:09)
[2019-01-03] MEDS: METOPROLOL XL 50 MG TAB PO SCH ×2 (09:10→20:33)
[2019-01-03] MEDS: ACETAMINOPHEN 500 MG TAB PO PRN ×2 (09:10→20:32)
[2019-01-03] MEDS: ROFLUMILAST 500 MCG TABLET PO SCH (09:10)
[2019-01-03] MEDS: AMIODARONE HCL 200 MG TAB PO SCH (09:10)
[2019-01-03] MEDS: HYDRALAZINE HCL 25 MG TABLET PO SCH ×2 (09:10→20:32)
[2019-01-03] MEDS: predniSONE 20 MG TAB PO SCH ×2 (09:10→16:01)
[2019-01-03] MEDS: AMLODIPINE 10 MG TAB PO SCH (09:10)
[2019-01-03] MEDS ORDERED: MAGNESIUM SULFATE 1 gm IVPB 1 GM/100 ML BAG IV ONE (12:25)
[2019-01-03] MEDS ORDERED: POTASSIUM CL SA 10 MEQ TAB PO ONE (12:25)
[2019-01-03] MEDS: POTASS/SODIUM PHOSPHATE 1 PKT POWD.PACK PO SCH ×3 (14:03→16:01)
--- NOTE | 2019-01-03 14:35 | PN ---
Date of Progress Note: 01/03/2019 Subjective: The patient doing well. Shortness of breath has been subsided. The patient waiting for a nuclear medicine parathyroid localization hopefully tomorrow. Physical Examination: Vital Signs: Blood pressure 125/63, pulse of 75. Chest: Faint wheezing. Heart: S1, S2. Regular. Abdomen: Soft and nontender. Extremities: No edema. Laboratory Data: H and H 11.2/33.2. Sodium 143, potassium is 3.6, bicarb 24, BUN 41, creatinine 2.1 , calcium 8.3, phosphorus 2.3, magnesium 1.8. PTH 8, sodium repeat PTH 42, vitamin D25 is 8. Current Medications: The patient on its include: 1.Albuterol. 2.Ferrous sulfate. 3.Xarelto. 4.Amiodarone. 5.Amlodipine. 6.Clonidine. 7.Hydralazine. 8.Metoprolol. 9.Breathing treatment. 10.Prednisone. 11.KCl. Assessment And Plan: 1.Acute kidney injury secondary to calcium diuresis, secondary to prerenal, superimposed with intake of vitamin D and calcium, recovered, resolved, back to baseline of IV fluid. 2.Hypercalcemia secondary to parathyroid tumor. Waiting for tomorrow nuclear medicine test and we w ill follow up. 3.Chronic obstructive pulmonary disease exacerbation as by Pulmonary. 4.Hypophosphatemia, resolved. Hypomagnesemia, resolved. HARPAL Voice ID: [id number] Report ID: [id number]
--- NOTE | 2019-01-03 17:41 | PN ---
Basically status quo. Still has a slight elevation of his creatinine. States he feels wiped out tod ay. However, his O2 sats basically are the same, being maintained on his 40 of prednisone. Also see n by Nephrology. Further workup for the possible parathyroid adenoma will be done in the morning. HR/MODL Voice ID: [id number] Report ID: [id number]
[2019-01-03] MEDS: RIVAROXABAN 15 MG TABLET PO SCH (20:32)
[2019-01-03] MEDS: ATORVASTATIN 10 MG TAB PO SCH (20:33)
[2019-01-04] MEDS: IPRATROPIUM BROM 0.5MG/2.5ML NEB SCH ×4 (02:00→19:45)
[2019-01-04 05:05] LABS: Magnesium 2.2 mg/dL (1.8-2.4); Phosphorus 2.4 mg/dL (2.5-4.9); Potassium 3.6 mmol/L (3.5-5.1)
[2019-01-04] MEDS: POTASS/SODIUM PHOSPHATE 1 PKT POWD.PACK PO SCH ×3 (06:02→08:22)
[2019-01-04] MEDS ORDERED: NS 0.9% VIAL 0 ML ONE (08:17)
[2019-01-04] MEDS ORDERED: EPINEPHRINE/PF 1 MG/ML AMP ONE (08:17)
[2019-01-04] MEDS ORDERED: BALANCED SALT IRRIG PLAIN 500 ML BTL IRR ONE (08:18)
[2019-01-04] MEDS ORDERED: DUOVISC 1 KIT OPTH ONE (08:19)
[2019-01-04] MEDS ORDERED: MOXIFLOXACIN HCL 10 DROPS/ML **OR USE OPTH ONE (08:19)
[2019-01-04] MEDS ORDERED: LIDOCAINE 1% MPF 2 ML AMPULE ONE (08:19)
[2019-01-04] MEDS: FERROUS SULFATE 325 MG TAB PO SCH (08:23)
[2019-01-04] MEDS: ROFLUMILAST 500 MCG TABLET PO SCH (08:23)
[2019-01-04] MEDS: AMLODIPINE 10 MG TAB PO SCH (08:23)
[2019-01-04] MEDS: METOPROLOL XL 50 MG TAB PO SCH ×2 (08:24→20:31)
[2019-01-04] MEDS: AMIODARONE HCL 200 MG TAB PO SCH (08:24)
[2019-01-04] MEDS: HYDRALAZINE HCL 25 MG TABLET PO SCH ×2 (08:24→20:32)
[2019-01-04] MEDS: ARFORMOTEROL TARTRATE 15 MCG/2 ML VIAL.NEB IH SCH ×2 (08:25→19:45)
[2019-01-04] MEDS: predniSONE 20 MG TAB PO SCH (09:00)
--- NOTE | 2019-01-04 12:06 | RAD REPORT ---
EXAM DESCRIPTION: NM - Parathyroid Imaging - 01/04/2019 11:27 am CLINICAL HISTORY: hypercalcemia, neck swelling COMPARISON: January 01, 2019 ultrasound TECHNIQUE: 21.7 millicuries technetium IV administered intravenously. Anterior and 3.5 hour delayed images of the neck and upper chest obtained FINDINGS: The initial images demonstrate symmetric radiotracer uptake involving the thyroid gland. U ptake involves the salivary glands. Delayed images demonstrate washout of radiotracer from the thyroid gland. No abnormal radiotracer act ivity is seen. IMPRESSION: Unremarkable exam
--- NOTE | 2019-01-04 12:18 | P.PN ---
Subjective Date of Service: 01/04/19 Chief Complaint: COPD exacerbate No changes still complains of shortness of breath on minimal exertion very debilitated did not tolerate BiPAP although blood gases did not show any hypercapnia Review of Systems Respiratory: Shortness of Breath Physical Examination - Vital Signs Temperature: 98.1 F Blood Pressure: 147/66 Pulse: 85 Respirations: 20 Pulse Ox (%): 91 - Physical Exam General: Alert, In no apparent distress, Oriented x3, Mild distress Neck: Supple Respiratory: Diminished, Expiratory wheezes Cardiovascular: No edema, Normal pulses Assessment & Plan - Problems (Diagnosis) (1) COPD exacerbation Onset Date: 04/27/18 Current Visit: No Status: Acute Plan: Patient is 63 years of age this terminal COPD the debilitated shortness of breath on mild exertion there is no evidence of any infection patient is on maximum bronchodilator therapy renal function has improved at this time the options include an L tach the rehab unit patient to goal her home with home health services cultures are negative blood pressure is little elevated sats satisfactory on 2 L of reduce the prednisone to 10 mg once a day I have added Wellbutrin possible anxiety/depression
[2019-01-04] MEDS: BUPROPION HCL XL 150 MG TAB PO SCH (12:19)
[2019-01-04] MEDS: predniSONE 10 MG TAB PO SCH (12:25)
[2019-01-04] MEDS: ACETAMINOPHEN 500 MG TAB PO PRN ×2 (12:27→20:32)
[2019-01-04] MEDS: RIVAROXABAN 15 MG TABLET PO SCH (20:32)
[2019-01-04] MEDS: ATORVASTATIN 10 MG TAB PO SCH (20:32)
[2019-01-04] MEDS ORDERED: FUROSEMIDE 20 MG/ 2ML VIAL IV ONE (21:20)
[2019-01-04] MEDS ORDERED: DEXAMETHASONE 10 MG/ML VIAL IV ONE (21:21)
[2019-01-04] MEDS ORDERED: DEXAMETHASONE 4 MG/ML VIAL ONE (22:02)
[2019-01-04] MEDS: LORazepam 2 MG/ML VIAL IV PRN (23:15)
[2019-01-04 23:32] LABS: Arterial Blood Carboxyhemoglob 1.2 % (0-1.5); Blood Gas Oxyhemoglobin 95.3 % (94-97); Blood O2 Saturation 97.3 % (92-98.5)
[2019-01-05] MEDS ORDERED: FUROSEMIDE 20 MG/ 2ML VIAL IV ONE (00:51)
[2019-01-05] MEDS: cloNIDine HCl 0.1 MG TAB PO PRN (00:57)
[2019-01-05] MEDS: MORPHINE 2 MG/ML SYR IV PRN (01:32)
[2019-01-05] MEDS ORDERED: DEXAMETHASONE 10 MG/ML VIAL IV ONE (01:44)
[2019-01-05] MEDS: ALBUTEROL 2.5 MG/3 ML NEB SOL NEB SCH ×4 (02:00→20:05)
[2019-01-05] MEDS: IPRATROPIUM BROM 0.5MG/2.5ML NEB SCH ×4 (02:00→20:05)
[2019-01-05] MEDS ORDERED: RSI MEDICATION KIT IV ONE (02:22)
[2019-01-05] MEDS ORDERED: PROPOFOL 1,000 MG/100 ML VIAL IV ONE (02:29)
--- NOTE | 2019-01-05 02:29 | P.PN ---
Date of Service: 01/05/19 I was called to evaluate the patient in ICU after he was transferred from the medical floor due to severe dyspnea and diaphoresis. At my encounter, he was tachypneic, RR 45, he was mottled on both knees, talking in very short sentence , bilateral crackles. It was decided intubate the patient for ventilator support. CXR after procedure shows tube well positioned. No significant difference with previous CXR. Dr Wilkins was informed. critical care time spent 60 minutes.
[2019-01-05] MEDS: PROPOFOL 1,000 MG/100 ML VIAL IV PRN ×3 (02:30→23:04)
--- NOTE | 2019-01-05 02:31 | P.OP ---
Date of Service: 01/05/19 Findings and Operative Technique Endotracheal Intubation Indication: Respiratory Distress A time-out was completed verifying correct patient, procedure, site, positioning. The patient was placed in a flat position. Sedation was obtained using Etomidate 20mg. The patient was easily ventilated using an ambu bag. The MAC 4 BLADE was used and inserted into the oropharynx at which time there was a Grade 1 view of the vocal cords. A 7.5-kenyan endotracheal tube was inserted and visualized going through the vocal cords. The stylette was removed. Colorimetric change was visualized on the CO2 meter. Breath sounds were heard in both lung posey equally. The endotracheal tube was placed at 23 cm, measured at the teeth. A chest x-ray was ordered to assess for pneumothorax and verify endotrachealtube placement.
[2019-01-05] MEDS ORDERED: HALOPERIDOL LACT 5 MG/ML INJ IV PRN (03:00)
[2019-01-05] MEDS: FENTANYL CITR 100 MCG/2 ML IV PRN ×5 (03:45→23:04)
[2019-01-05] MEDS: LORazepam 2 MG/ML VIAL IV PRN ×6 (03:58→21:21)
[2019-01-05] MEDS ORDERED: DEXAMETHASONE 4 MG/ML VIAL ONE (04:06)
--- NOTE | 2019-01-05 04:24 | PN ---
Date of Progress Note: 01/04/2019 Chief Complaint: Acute kidney injury secondary to hypercalcemia, prerenal azotemia with superimposed hypovolemia. The patient was found to have parathyroid tumor, is undergoing workup with nuclear medicine imaging. The patient has history of hypophosphatemia, which resolved. Hypomagnesemia was treated and resolved . Review of Systems: Denies fever, chills. Physical Examination: Lungs: Clear to auscultation bilaterally. Heart: S1, S2. Abdomen: Soft, benign, nontender. Extremities: Minimal edema. Laboratory Data: BUN 41, creatinine 2.1. Today, blood work was obtained and showed hemoglobin 11.2, WBCs 9.7, platelet count is 271,000. Chemistry showed sodium 137, potassium 3.6, chloride 116, CO2 of 23, BUN 43, creatinine 1.97. Calcium 8.1, calcium improved from 10.2. Phosphorus 2.4. Impression And Plan: 1.Acute kidney injury. Renal function slightly improved over last 24 hours. Hypercalcemia treated and resolved. Continue to asses for possible parathyroid adenoma. Workup is pending. An imaging te st with Nuclear Medicine will be obtained. 2.Hypertension on multiple blood pressure medication. 3.Hypokalemia. Potassium improved. Monitor potassium and electrolytes. Advance p.o. intake. EB/MODL Voice ID: [id number] Report ID: [id number]
[2019-01-05 05:58] LABS: Potassium 4.1 mmol/L (3.5-5.1)
[2019-01-05 06:36] LABS: Arterial Blood Carboxyhemoglob 1.2 % (0-1.5); Blood Gas Oxyhemoglobin 96.8 % (94-97); Blood O2 Saturation 98.8 % (92-98.5)
[2019-01-05] MEDS ORDERED: NA CHLORIDE 0.9% 500 ML ONE (08:02)
[2019-01-05] MEDS: NA CHLORIDE 0.9% 250 ML IV PRN ×2 (08:10→08:20)
--- NOTE | 2019-01-05 08:26 | RAD REPORT ---
EXAM DESCRIPTION: Dorothy Single View01/05/2019 2:51 am CLINICAL HISTORY: Shortness of breath COMPARISON: January 01 FINDINGS: An endotracheal tube has been inserted with its tip well above the jeovany. A nasogastric t ube is present stomach. No significant change in a small left pleural effusion and left basilar opacity which may represent a telectasis or pneumonia IMPRESSION: Tubes in good position
[2019-01-05] MEDS: HYDRALAZINE HCL 25 MG TABLET PO SCH (09:00)
[2019-01-05] MEDS: METOPROLOL XL 50 MG TAB PO SCH ×2 (09:00→21:00)
[2019-01-05] MEDS: AMLODIPINE 10 MG TAB PO SCH (09:00)
[2019-01-05] MEDS: BUPROPION HCL XL 150 MG TAB PO SCH ×2 (09:00→09:19)
[2019-01-05] MEDS: FAMOTIDINE 20 MG/2 ML VIAL IV SCH (09:14)
[2019-01-05] MEDS: predniSONE 10 MG TAB PO SCH (09:19)
[2019-01-05] MEDS: FERROUS SULFATE 325 MG TAB PO SCH (09:26)
[2019-01-05] MEDS: ROFLUMILAST 500 MCG TABLET PO SCH (09:26)
[2019-01-05] MEDS: AMIODARONE HCL 200 MG TAB PO SCH (09:27)
[2019-01-05] MEDS: FOLIC ACID 1 MG TABLET PO SCH (09:27)
--- NOTE | 2019-01-05 10:11 | RAD REPORT ---
EXAM DESCRIPTION: RAD - Chest Single View - 01/05/2019 3:43 am CLINICAL HISTORY: 3 years Male, PICC Placement COMPARISON: None FINDINGS: Endotracheal tube terminating approximately 5 cm above the jeovany. Gastric tube terminating subdiaphragmatically. Placement of left upper extremity PICC terminating at the cavoatrial junction. No focal lung consolidation. Left pleural effusion. No pneumothorax. Cardiac and mediastinal silhouette is enlarged. No acute osseous abnormality. IMPRESSION: Appropriately placed left upper extremity PICC as well as endotracheal and orogastric tu bes. Left pleural effusion. Electronically signed by: Ebenezer Lee DO 01/05/2019 3:49 AM RECORDS COORDINATOR Due to temporary technical issues with the PACS/Fluency reporting system, reports are being signed by the in house radiologist as a courtesy to ensure prompt reporting. The interpreting radiologist is f ully responsible for the content of the report.
--- NOTE | 2019-01-05 10:31 | EKG ---
Test Date: 2019-01-05 Test Time: 01:04:32 Doughnut Dough Mixer: RT MEASUREMENT RESULTS: Intervals: Rate: 121 CO: 136 QRSD: 124 QT: 390 QTc: 553 [place]: P: 80 CO: 136 QRS: -22 T: 68 INTERPRETIVE STATEMENTS: Sinus tachycardia Anterior infarct, age undetermined Abnormal ECG Compared to ECG 12/29/2018 18:36:35 Sinus rhythm no longer present Right bundle-branch block no longer present Left anterior fascicular block no longer present Bifascicular block no longer present Myocardial infarct finding still present Electronically Signed On 01-05-19 10:29:15 CASH MANAGEMENT OFFICER by Nasir Bailey
[2019-01-05] MEDS ORDERED: CEFEPIME 1 GM/VIAL IV SCH (11:49)
[2019-01-05] MEDS ORDERED: Pharmacy Consult 1 EA XX PRN (11:50)
--- NOTE | 2019-01-05 11:53 | P.PN ---
Subjective Date of Service: 01/05/19 Chief Complaint: Respiratory failure Patient developed respiratory distress last night and had to be intubated currently on propofol agitated low blood pressure Review of Systems is unable to be obtained Physical Examination - Vital Signs Temperature: 97.7 F Blood Pressure: 82/54 Pulse: 78 Respirations: 21 Pulse Ox (%): 100 - Physical Exam General: Other (Unresponsive on propofol) Neck: Supple Respiratory: Clear to auscultation bilaterally Cardiovascular: No edema, Regular rate/rhythm Assessment & Plan - Problems (Diagnosis) (1) COPD exacerbation Onset Date: 04/27/18 Current Visit: No Status: Acute Plan: Patient is 63 years of age this terminal COPD the debilitated shortness of breath on mild exertion there is no evidence of any infection patient is on maximum bronchodilator therapy renal function has improved at this time the options include an L tach the rehab unit patient to goal her home with home health services cultures are negative blood pressure is little elevated sats satisfactory on 2 L of reduce the prednisone to 10 mg once a day I have added Wellbutrin possible anxiety/depression patient's chest x-rays clear (2) Respiratory failure Current Visit: Yes Status: Acute Plan: Patient developed respiratory distress and was intubated currently hypotensive may be side effect of medications patient is mildly hypernatremic no evidence of sepsis patient is also hypotensive I have stopped is anti hypertensive medications fluid boluses IV steroids antibiotics possibility of sepsis blood cultures 2D echocardiogram with Doppler patient is anti coagulated Qualifiers: Chronicity: acute
[2019-01-05] MEDS ORDERED: VANCOMYCIN 1.5 GM in NA CHLORIDE 0.9% 500 ML IVPB ONE (12:15)
[2019-01-05] MEDS: MIDAZOLAM HCL 2 MG/2 ML INJ IV PRN ×2 (12:23→20:40)
[2019-01-05] MEDS: METHYLPREDNISOLONE 40 MG INJ IV SCH ×2 (12:29→16:50)
[2019-01-05] MEDS: CEFEPIME/SWI 1gm 10 ML IV SCH ×2 (12:59→20:40)
[2019-01-05 13:00] LABS: CKMB Creatine Kinase MB 11.5 ng/mL (0.3-3.6); Troponin I 2.06 ng/mL (0.0-0.045)
[2019-01-05] MEDS: NA CHLORIDE 0.9% 1,000 ML IV SCH (13:37)
--- NOTE | 2019-01-05 14:04 | PN ---
Date of Progress Note: 01/04/2019 The patient is basically status quo, was seen by Pulmonology, steroid dose has been decreased. The p atient states he still has marked exertional dyspnea. Disposition comes out to either LTAC or SNF and we feel he is ready to go home. He is sitting in a chair and speaking quite comfortably this evenin g. The decision for disposition will probably be made in the morning. HR/MODL Voice ID: [id number] Report ID: [id number]
[2019-01-05] MEDS ORDERED: ETOMIDATE 20 MG/10 ML VIAL IV ONE (14:14)
[2019-01-05] MEDS ORDERED: SUCCINYLCHOLINE 20 MG/ML (10 ML) IV ONE (14:14)
[2019-01-05] MEDS: ENOXAPARIN 60 MG/0.6 ML SQ SCH (15:53)
--- NOTE | 2019-01-05 15:55 | PN ---
Date of Progress Note: 01/05/2019 Subjective: The patient was transferred to ICU because of respiratory distress. The patient intubat ed, not requiring high concentration of FiO2. Had hypertension during yesterday and his blood pressu re was elevated to 190 systolic. Medicated with clonidine and hydralazine. Today morning blood pres sure bottom to the 90s. The patient given IV fluid and respiratory treatment. Physical Examination: Vital Signs: When I saw the patient, blood pressure 90/58, pulse of 78, saturation 98 on 30% FiO2 on vent. Chest: Faint wheezing bilateral. Heart: S1 and S2, regular. Abdomen: Soft and nontender. Extremities: No edema. Laboratory Data: WBC 9.7, H and H 11.2/33.2, platelet 271. Sodium 146, potassium 4.1, bicarb 23, BU N 45, creatinine 2.1, calcium 7.7, phosphorus 2.4, magnesium of 2. Folate more than 20. VD25 less t richardson 8. PTH of 42. A nuclear medicine parathyroid lobe was negative. Current Medications: The patient on include: 1.Amiodarone. 2.Amlodipine 10. 3.Atorvastatin. 4.Clonidine 0.1 t.i.d. 5.Hydralazine 25 b.i.d. 6.Metoprolol 50 b.i.d. 7.Carvedilol. 8.Ativan. 9.Midazolam. 10.Lasix received yesterday. 11.Folic acid. 12.Pepcid. 13.Zofran. 14.Morphine. Imaging: Chest x-ray, no cardiomegaly. Assessment And Plan: 1.Acute kidney injury secondary to hypercalcemia, prerenal recover, resolved back to baseline of chr onic kidney disease secondary to hypertension, stable, normal volume. I am going to continue to tarah tor the patient. 2.Hypertension, currently hypotension. We will hold the blood pressure medication. We will monitor . We will send for serial cardiac enzyme and EKG. 3.Respiratory distress without any hypercapnic respiratory failure, has hyperventilation without any significant hypoxemia. We will follow up with Pulmonary. 4.Chronic obstructive pulmonary disease exacerbation as by Pulmonary. 5.Hypokalemia status post supplement, resolved. 6.Vitamin D deficiency giving the incident of hypercalcemia. I am going to hold on replacement for the time being and we will monitor. 7.Respiratory failure as by Pulmonary. LALITA/MODL Voice ID: [id number] Report ID: [id number]
[2019-01-05 21:19] LABS: CKMB Creatine Kinase MB 8.2 ng/mL (0.3-3.6)
[2019-01-05 21:20] LABS: Troponin I 1.02 ng/mL (0.0-0.045)
--- NOTE | 2019-01-05 23:21 | PN ---
Date of Progress Note: 01/05/2019 The patient remains intubated, basically unchanged. Still some question as to the etiological factor whether pulmonary associated with vascular changes. However, unknown here is the fact that the pulm onary failure as such did not have an associated hypercapnia with it. The vascular problem was sugge sted by EKG and enzymatic changes. However, he was recently seen by his aerotriangulation specialist in past 2 weeks and a negative workup, which did not include however a stress test. An echo has been done and await ing results. HR/MODL Voice ID: [id number] Report ID: [id number]
[2019-01-06] MEDS: METHYLPREDNISOLONE 40 MG INJ IV SCH ×2 (00:50→09:30)
[2019-01-06] MEDS: ALBUTEROL 2.5 MG/3 ML NEB SOL NEB SCH ×4 (01:25→19:57)
[2019-01-06] MEDS: IPRATROPIUM BROM 0.5MG/2.5ML NEB SCH ×4 (01:25→19:57)
[2019-01-06] MEDS: LORazepam 2 MG/ML VIAL IV PRN ×3 (01:30→23:05)
[2019-01-06] MEDS: MIDAZOLAM HCL 2 MG/2 ML INJ IV PRN ×2 (02:25→03:55)
[2019-01-06] MEDS: NA CHLORIDE 0.9% 1,000 ML IV SCH (03:47)
[2019-01-06 05:39] LABS: Absolute Monocytes 0.2 K/uL (0.1-1.3); Absolute Neutrophil 8.8 K/uL (1.8-8.0); Basophils % 0.1 % (0-1.3); Hematocrit 29.7 % (39.6-49.0); Lymphocytes % 0.5 % (15.3-44.8); MPV 8.3 fL (7.6-11.3); Monocytes % 2.1 % (3.3-12.3); RBC Red Blood Cell Count 3.32 M/uL (4.33-5.43)
[2019-01-06] MEDS: FENTANYL CITR 100 MCG/2 ML IV PRN ×3 (05:40→20:29)
--- NOTE | 2019-01-06 06:06 | EKG ---
Test Date: 2019-01-05 Test Time: 12:13:12 Ophthalmic Surgeon: LIBERTAD MEASUREMENT RESULTS: Intervals: Rate: 95 CA: 126 QRSD: 134 QT: 416 QTc: 522 [place]: P: 78 CA: 126 QRS: -13 T: 25 INTERPRETIVE STATEMENTS: Sinus rhythm with premature atrial complexes Nonspecific intraventricular block Cannot rule out Anteroseptal infarct, age undetermined Abnormal ECG Compared to ECG 01/05/2019 01:04:32 Atrial premature complex(es) now present Sinus tachycardia no longer present Myocardial infarct finding still present Electronically Signed On 01-06-19 06:04:32 SAWMILL RELIEF WORKER by Nasir Bailey
[2019-01-06 06:15] LABS: Magnesium 2.2 mg/dL (1.8-2.4); Potassium 3.9 mmol/L (3.5-5.1)
[2019-01-06 06:18] LABS: Troponin I 0.52 ng/mL (0.0-0.045)
[2019-01-06 06:34] LABS: Arterial Blood Carboxyhemoglob 1.2 % (0-1.5); Blood Gas Oxyhemoglobin 96.4 % (94-97); Blood O2 Saturation 98.3 % (92-98.5)
[2019-01-06 07:13] LABS: Blood Morphology Comment NOTED (NOT SEEN); Platelet Estimate ADEQ; Urine White Blood Cell Casts OK
[2019-01-06 07:14] LABS: Anisocytosis SLIGHT
[2019-01-06] MEDS: PROPOFOL 1,000 MG/100 ML VIAL IV PRN ×3 (07:36→21:45)
--- NOTE | 2019-01-06 08:36 | ECHO ---
HEIGHT: 5 ft 6 in WEIGHT: 152 lb 5 oz DATE OF STUDY: 01/05/[address]: Tomas Sawant MD 2-DIMENSIONAL: YES M.MODE: YES DOPPLER: YES COLOR FLOW: YES TDS: YES PORTABLE: NO DEFINITY: NO BUBBLE STUDY: NO DIAGNOSIS: RESPIRATORY FAILURE CARDIAC HISTORY: CATHERIZATION: NO SURGERY: NO PROSTHETIC VALVE: NO PACEMAKER: NO MEASUREMENTS (cm) DIASTOLIC (NORMALS) SYSTOLIC (NORMALS) IVSd 1.1 (0.6-1.2) LA Diam 3.4 (1.9-4.0) LVEF 71% LVIDd 4.1 (3.5-5.7) LVIDs 2.5 (2.0-3.5) %FS 40% LVPWd 1.1 (0.6-1.2) Ao Diam 3.1 (2.0-3.7) 2 DIMENSIONAL ASSESSMENT: RIGHT ATRIUM: PARADOXICAL LEFT ATRIUM: NORMAL RIGHT VENTRICLE: NORMAL LEFT VENTRICLE: NORMAL TRICUSPID VALVE: NORMAL MITRAL VALVE: NORMAL PULMONIC VALVE: NORMAL AORTIC VALVE: NORMAL PERICARDIAL EFFUSION: NONE AORTIC ROOT: NORMAL LEFT VENTRICULAR WALL MOTION: PARADOXICAL SEPTUM NORMAL LEFT EJECTION FRACTION. DOPPLER/COLOR FLOW: MILD TRICUSPID REGURGITATION- NORMAL RIGHT VENTRICULAR SYSTOLIC PRESSURE. COMMENTS: TECHNICALLY DIFFICULT STUDY. PARADOXICAL SEPTUM. NORMAL EJECTION FRACTION. MILD TRICUSPID REGURGITATION- NORMAL RIGHT VENTRICULAR SYSTOLIC PRESSURE. NORMAL LEFT VENTRICULAR SIZE. TECHNOLOGIST: CARRI PARTIDA
[2019-01-06] MEDS: METOPROLOL XL 50 MG TAB PO SCH ×2 (09:00→20:30)
[2019-01-06] MEDS: AMIODARONE HCL 200 MG TAB PO SCH (09:28)
[2019-01-06] MEDS: CEFEPIME/SWI 1gm 10 ML IV SCH ×2 (09:28→20:29)
[2019-01-06] MEDS: FAMOTIDINE 20 MG/2 ML VIAL IV SCH (09:28)
[2019-01-06] MEDS: FOLIC ACID 1 MG TABLET PO SCH (09:28)
[2019-01-06] MEDS: FERROUS SULFATE 325 MG TAB PO SCH (09:28)
[2019-01-06] MEDS: D5W 1,000 ML IV SCH ×2 (09:29→23:05)
[2019-01-06] MEDS ORDERED: VANCOMYCIN 1.25 GM in NA CHLORIDE 0.9% 250 ML IVPB SCH (12:00)
--- NOTE | 2019-01-06 12:24 | P.PN ---
Subjective Date of Service: 01/06/19 Chief Complaint: Respiratory failure No change patient is very agitated requiring propofol hemodynamically stable Review of Systems is unable to be obtained Physical Examination - Vital Signs Temperature: 98 F Blood Pressure: 136/65 Pulse: 84 Respirations: 29 Pulse Ox (%): 99 - Physical Exam General: Moderate distress Neck: Supple Respiratory: Clear to auscultation bilaterally, Diminished Assessment & Plan - Problems (Diagnosis) (1) Respiratory failure Current Visit: Yes Status: Acute Plan: Patient admitted with respiratory distress currently on a ventilator unable to wean wing very agitated echocardiogram no evidence of of wall motion abnormalities no evidence of sepsis patient is hypernatremic of started him on D5 water consider LTAC started patient on tube feeds is possible that the steroids of making may agitated of stopped it patient is anti coagulated the elevated troponin Qualifiers: Chronicity: acute
[2019-01-06] MEDS: CALCIUM CARBONATE CHEW 500MG TAB PO SCH ×3 (12:40→20:30)
[2019-01-06] MEDS: VITAL AF 1,000 ML BOT RTH SCH (13:09)
[2019-01-06] MEDS ORDERED: VITAL AF 1,000 ML BOT FT SCH (14:00)
--- NOTE | 2019-01-06 14:32 | CON ---
A 63-year-old man. Attending Physician: Dr. Wilkins. Chief Complaint: Respiratory failure. Reason For Cardiology Consult: Abnormal troponins. History Of Present Illness: Mr. Narvaez is a 63-year-old man who has overwhelming medical problems. He has presented with severe hyperkalemia and no clear diagnosis is made as to why he had it. It c ould have been severe dehydration. He has had previous lung cancer with lobectomy, on chemotherapy. He has severe COPD. He has had atrial fibrillation and hypertension. He is not awake to tell us wh ether or not he has been having chest pain or not. About 28 hours ago, he required intubation becaus e of respiratory failure. He has been intubated since then. It occurred about 2:00 in the morning. His chest x-ray shows appropriate placement of the endotracheal tube. There is a large left pleural effusion. There is a gastric tube terminating below the diaphragm. There is no focal lung consolid ation, enlargement of the cardiac silhouette. Laboratory Data: Laboratory exam reveals a pH of 7.42, pCO2 of 28, pO2 of 116, this is while he is b reathing 30% via ventilator. His troponins have been 2.06, 1.02, 0.52. His EKGs have not shown any particular abnormality. 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 He has had a right bundle-branch block that comes and goes. He does not seem to have the bundle branch block now. He is in sinus rhythm, in sinus tachycardia for the most time. An echocardiogram done ye some 12 hours or so, after he was intubated, reveals his ejection fraction is about 40%. No segmental wall motion abnormality. It was technically difficult study. Not much information could r ealldennise be obtained because of the patient's severe lung disease. Impression: The patient probably has coronary heart disease. It is probably causing some of his res piratory distress, left ventricular dysfunction as well as severe chronic obstructing pulmonary disea se are all complicating it. This, of course, does not have anything to do with his hypercalcemia, an d his hypercalcemia seems to be better. Mr. Narvaez is not a candidate to undergo a heart cath or a stent, for one thing he is not awake. He is intubated, obtunded. If he wakes up and is able to tel l us that he wants to take a chance of looking at his heart, we could do it. I would think it is chris y likely. It would be of no benefit to him. I think it is very unlikely, anybody would find a lesio n that we could stand and make things a lot better. His renal function is terrible. When he first c una in, creatinine was 4.5, most recent one is 2.46. So, he is probably going to level out at stage IV renal failure, end-stage chronic obstructing pulmonary disease, history of lung cancer, probably l abad cancer is lingering somewhere and contributes to the hypercalcemia, so looking at doing coronary interventions is out of the question. NOBLE Voice ID: [id number] Report ID: [id number]
--- NOTE | 2019-01-06 15:38 | PN ---
Date of Progress Note: 01/06/2019 Subjective: The patient still intubated and anxious. No nausea. No vomiting. Physical Examination: Vital Signs: When I saw the patient's blood pressure 136/65, pulse of 84, afebrile. Chest: Clear to auscultation. Heart: S1 and S2. Regular. Abdomen: Soft and nontender. Extremities: No edema. Neurologic: Follow commands. No focal. The patient had good urine output of 2000. Laboratory Data: WBC 9, H and H 9.8/29.7, platelets 197. Sodium 151, potassium 3.9, bicarb 21, BUN 60, creatinine 2.5, calcium 6.9, magnesium 2.2. Troponin yesterday of 2, started trending down to 0. 52. Vitamin D is 8. PTH of 42. Current Medications: The patient on its include cefepime, vancomycin, ferrous sulfate, amiodarone, m etoprolol, lorazepam sedation. Folic acid, Pepcid, D5 at 75 per hour, fentanyl. Assessment And Plan: 1.Acute kidney injury on chronic kidney disease secondary to poor perfusion ATN cardiorenal. Curren tly normal volume. I agree with IV fluid for the time being and we will monitor. We will hold on an y diuresis. 2.Hypertension, controlled, optimal. Continue current medication. 3.Hypernatremia. We will start the patient on D5. 4.Hypocalcemia. Start vitamin D supplement and Tums. We will follow up. 5.Hypotension, currently stabilized. Questionable of cardiogenic. We will follow up with Cardiology. 6.Respiratory failure. Follow up with Pulmonary. HARPAL Voice ID: [id number] Report ID: [id number]
--- NOTE | 2019-01-06 16:22 | RAD REPORT ---
EXAM DESCRIPTION: RAD - Abdomen 1 View (KUB) - 01/06/2019 4:06 pm CLINICAL HISTORY: Device placement Dobhoff tube placement FINDINGS: The tip of a Dobhoff tube lies within the proximal stomach.
--- NOTE | 2019-01-06 17:22 | RAD REPORT ---
EXAM DESCRIPTION: RAD - Abdomen 1 View (KUB) - 01/06/2019 5:12 pm CLINICAL HISTORY: Device placement Dobhoff tube placement FINDINGS: Dobhoff tube is coiled within the stomach. The tip lies at the junction of the gastric fu ndus and body.
[2019-01-06] MEDS: ENOXAPARIN 60 MG/0.6 ML SQ SCH (18:04)
--- NOTE | 2019-01-06 22:59 | PN ---
Date of Progress Note: 01/06/2019 Subjective: Basically status quo as far as his pulmonary status is concerned and difficulty weaning him at all. Cardiology has been contributing factor, not much more can be done at this pa rticular stage. Discussion was had with his as to the present status and enquires about LTAC an d continued use of the respirator. Suggested strongly that she have a visit with Dr. Sawant, and s he is going to try and do that in the morning. HR/MODL Voice ID: [id number] Report ID: [id number]
[2019-01-07] MEDS: IPRATROPIUM BROM 0.5MG/2.5ML NEB SCH ×4 (01:30→20:00)
[2019-01-07] MEDS: ALBUTEROL 2.5 MG/3 ML NEB SOL NEB SCH ×4 (01:30→20:00)
[2019-01-07] MEDS: FENTANYL CITR 100 MCG/2 ML IV PRN (02:21)
[2019-01-07] MEDS: PROPOFOL 1,000 MG/100 ML VIAL IV PRN (03:39)
[2019-01-07 05:55] LABS: Absolute Lymphocytes (CBC) 0.1 K/uL (0.7-4.9); Absolute Monocytes 0.4 K/uL (0.1-1.3); Absolute Neutrophil 7.8 K/uL (1.8-8.0); Basophils % 0.1 % (0-1.3); Hematocrit 27.6 % (39.6-49.0); MPV 8.5 fL (7.6-11.3); Monocytes % 4.8 % (3.3-12.3); RBC Red Blood Cell Count 3.05 M/uL (4.33-5.43)
[2019-01-07 06:09] LABS: Magnesium 2.4 mg/dL (1.8-2.4); Potassium 3.4 mmol/L (3.5-5.1); T3 Free 1.41 pg/mL (2.18-3.98); T4,Total 11.5 ug/dL (4.5-12.1); Thyroid Stimulating Hormone 1.39 uIU/mL (0.360-3.740)
[2019-01-07] MEDS: CALCIUM CARBONATE CHEW 500MG TAB PO SCH ×4 (08:30→21:08)
[2019-01-07] MEDS: VITAMIN D 1000 UNIT TAB PO SCH (08:30)
[2019-01-07] MEDS: FOLIC ACID 1 MG TABLET PO SCH (08:30)
[2019-01-07] MEDS: AMIODARONE HCL 200 MG TAB PO SCH (08:31)
[2019-01-07] MEDS: METOPROLOL XL 50 MG TAB PO SCH ×2 (08:31→21:08)
[2019-01-07] MEDS: FAMOTIDINE 20 MG/2 ML VIAL IV SCH (08:31)
[2019-01-07] MEDS: ACETAMINOPHEN 500 MG TAB PO PRN (08:32)
[2019-01-07] MEDS: CEFEPIME/SWI 1gm 10 ML IV SCH ×2 (08:33→21:08)
--- NOTE | 2019-01-07 08:41 | P.PN ---
Subjective Date of Service: 01/07/19 Chief Complaint: Respiratory failure Patient is hemodynamically stable continues to remain extremely agitated off the propofol Review of Systems is unable to be obtained Physical Examination - Vital Signs Temperature: 98.1 F Blood Pressure: 120/59 Pulse: 76 Respirations: 22 Pulse Ox (%): 98 - Physical Exam General: Unresponsive Respiratory: Clear to auscultation bilaterally, Diminished Cardiovascular: No edema, Regular rate/rhythm Assessment & Plan - Problems (Diagnosis) (1) Respiratory failure Current Visit: Yes Status: Acute Plan: Patient on a ventilator plan to wean off the propofol is no evidence of sepsis hypernatremia as also improved I have started patient on thiamine Dc steroids will discuss with the if there is a history of alcohol consumption patient is also anti coagulated cultures negative sputum negative vital signs stable patient is on minimal oxygen will try to wean off propofol Qualifiers: Chronicity: acute
[2019-01-07] MEDS ORDERED: THIAMINE 200 MG/2 ML INJ IVP SCH (09:00)
--- NOTE | 2019-01-07 09:54 | RAD REPORT ---
EXAM DESCRIPTION: RAD - Chest Single View - 01/07/2019 9:21 am CLINICAL HISTORY: Respiratory failure COMPARISON: January 06, January 05 TECHNIQUE: AP portable chest image was obtained 0918 hours . FINDINGS: Patient has underlying fibrotic an obstructive lung pattern. No new lung parenchymal proce ss. Left costophrenic angle blunting has not changed. Tubes and lines are stable. Heart and vasculatu re are normal. No pneumothorax. No enlarging pleural effusion. No acute bony abnormality seen. No acu te aortic findings suspected. IMPRESSION: Fibrotic an obstructive lung changes with left costophrenic angle blunting. Chest findings are stable from prior imaging.
[2019-01-07] MEDS: D5W 1,000 ML IV SCH ×2 (12:29→13:00)
--- NOTE | 2019-01-07 13:33 | PN ---
Date of Progress Note: 01/07/2019 Mr. Narvaez was admitted by Dr. Wilkins on 12/29/2018. Dr. Thorne saw him on 01/06/2019 because of elevated troponin. History Of Present Illness: Mr. Narvaez has a history of lung cancer with hypercalcemia. May have recurrence of his lung cancer, then may be occult workup is pending. He is obtunded, intubated, has severe COPD, left ventricular hypertrophy, poor renal function, elevated troponin, probable coronary artery disease. No change in plan from our standpoint. We do not have any plan to do any coronary i ntervention or catheterization at this point. If his renal function recovers, mental status recovers , and respiratory status recovers, we will reconsider catheterization then. We will sign off his eloise e for now. ENRIQUE/RYAN Voice ID: [id number] Report ID: [id number]
[2019-01-07] MEDS ORDERED: CALCIUM GLUC 10% INJ 4.65 MEQ in NA CHLORIDE 0.9% 100 ML IV ONE (14:00)
[2019-01-07] MEDS: ENOXAPARIN 60 MG/0.6 ML SQ SCH (16:50)
--- NOTE | 2019-01-07 19:41 | PN ---
Date of Progress Note: 01/07/2019 The patient was extubated today, seemed to tolerate it quite well. He has no recollection of the bartolo nts leading up to the intubation. I will start over with PT consult in preparation for a placement e ither in a SNF, LTAC, or perhaps if he does really able to go home with Home Health, and also a possi bility of fifth floor rehab. HR/MODL Voice ID: [id number] Report ID: [id number]
[2019-01-07] MEDS: VITAL AF 1,000 ML BOT RTH SCH (20:05)
[2019-01-07] MEDS: MORPHINE 2 MG/ML SYR IV PRN (21:08)
--- NOTE | 2019-01-07 23:08 | P.PN ---
Subjective Date of Service: 01/07/19 Chief Complaint: Respiratory failure Extubated still wheezing NA 147 , will reduce D5w rate will give 1Gm Ca gluconate Cr 2.4 Good UO Physical Examination - Vital Signs Temperature: 98.8 F Blood Pressure: 144/62 Pulse: 130 Respirations: 19 Pulse Ox (%): 100 - Physical Exam General: Alert, Moderate distress HEENT: Atraumatic Neck: Supple, Without JVD or thyroid abnormality Respiratory: Inspiratory wheezes Cardiovascular: No edema, Regular rate/rhythm, Normal S1 S2, No rubs, No murmurs Gastrointestinal: Normal bowel sounds, Soft and benign Integumentary: No rashes Assessment And Plan - Current Problems (Diagnosis) (1) SHARITA (acute kidney injury) Current Visit: Yes Status: Acute (2) Hypercalcemia Current Visit: Yes Status: Acute (3) Atrial fibrillation Current Visit: No Status: Chronic Qualifiers: Atrial fibrillation type: chronic Qualified Code(s): I48.2 - Chronic atrial fibrillation - Plan Assessment And Plan: SHARITA now likely due to prerenal Cont D5W baseline ~2.0 uS: no hydro hypernatremia Cont D5W improving COPD with HX of lung Ca pt with advanced COPD extubated cont inhalers ands streoids as per pulmonary hypocalcemia pt was hypercalcemic on admission will cont calcium carbonate Afib on metoprolol and amiodarone
[2019-01-08] MEDS: ALBUTEROL 2.5 MG/3 ML NEB SOL NEB SCH (02:00)
[2019-01-08] MEDS: IPRATROPIUM BROM 0.5MG/2.5ML NEB SCH ×2 (02:00→19:54)
[2019-01-08 05:42] LABS: Absolute Lymphocytes (CBC) 0.1 K/uL (0.7-4.9); Absolute Monocytes 0.5 K/uL (0.1-1.3); Absolute Neutrophil 6.8 K/uL (1.8-8.0); Basophils % 0.1 % (0-1.3); Eosinophils % 0.7 % (0-4.4); Hematocrit 29.5 % (39.6-49.0); Lymphocytes % 1.4 % (15.3-44.8); MPV 8.4 fL (7.6-11.3); Monocytes % 7.2 % (3.3-12.3)
[2019-01-08 05:47] LABS: Magnesium 2.2 mg/dL (1.8-2.4); Potassium 3.7 mmol/L (3.5-5.1)
[2019-01-08] MEDS ORDERED: ALBUTEROL 2.5 MG/3 ML NEB SOL NEB PRN ×2 (07:07→13:00)
[2019-01-08] MEDS ORDERED: IPRATROPIUM BROM 0.5MG/2.5ML NEB PRN (07:07)
[2019-01-08] MEDS ORDERED: POTASSIUM CL SA 10 MEQ TAB PO ONE (08:14)
--- NOTE | 2019-01-08 08:25 | RAD REPORT ---
EXAM DESCRIPTION: RAD - Chest Single View - 01/08/2019 6:36 am CLINICAL HISTORY: Respiratory failure Chest pain. COMPARISON: Chest Single View dated 01/07/2019; Abdomen 1 View (KUB) dated 01/06/2019; Abdomen 1 View (K UB) dated 01/06/2019; Chest Single View dated 01/05/2019 FINDINGS: Portable technique limits examination quality. A left pleural effusion is again noted, mildly increased in size since comparative study. Emphysemato us changes are present throughout the lungs. Enteric tube descends into the stomach. Left PICC line r emains unchanged in position. The heart is normal in size.
[2019-01-08] MEDS: THIAMINE HCL 100 MG TABLET PO SCH (08:32)
[2019-01-08] MEDS: CALCIUM CARBONATE CHEW 500MG TAB PO SCH ×4 (08:32→22:30)
[2019-01-08] MEDS: VITAMIN D 1000 UNIT TAB PO SCH (08:32)
[2019-01-08] MEDS: AMIODARONE HCL 200 MG TAB PO SCH (08:33)
[2019-01-08] MEDS: FAMOTIDINE 20 MG TAB PO SCH (08:33)
[2019-01-08] MEDS: FOLIC ACID 1 MG TABLET PO SCH (08:33)
[2019-01-08] MEDS: D5W 1,000 ML IV SCH ×3 (08:34→22:24)
[2019-01-08] MEDS: CEFEPIME/SWI 1gm 10 ML IV SCH (09:12)
--- NOTE | 2019-01-08 11:29 | P.PN ---
Subjective Date of Service: 01/08/19 Primary Care Provider: Dr. Wilkins(I am covering for him) Chief Complaint: Respiratory failure Subjective: Other (Patient improved. Patient alert on nasal cannula.) Physical Examination - Vital Signs Temperature: 98.3 F Blood Pressure: 162/90 Pulse: 81 Respirations: 23 Pulse Ox (%): 98 - Physical Exam General: Alert, In no apparent distress, Oriented x3, Cooperative HEENT: Atraumatic Neck: Supple Respiratory: Clear to auscultation bilaterally, Normal air movement Cardiovascular: Normal pulses, Regular rate/rhythm Gastrointestinal: Normal bowel sounds, Soft and benign, Non-distended, No masses , No rebound, No guarding Musculoskeletal: No erythema, No tenderness, No warmth Neurological: Normal speech, Normal strength at 5/5 x4 extr, Normal tone Urinary: Faria catheter - Studies Medications List Reviewed: Yes Assessment & Plan Discharge Plan: Other (correction facility) Plan to discharge in: Greater than 2 days Physician Review Additional Text: Impression: Acute on chronic respiratory failure secondary COPD exacerbation with noted left pleural effusion complicated with history of lung cancer and prior lobectomy Acute on chronic renal disease, stage III with hypernatremia Atrial fibrillation Hypertension CAD Anemia likely of chronic disease Plan: Acute on chronic respiratory failure secondary COPD exacerbation with noted left pleural effusion complicated with history of lung cancer and prior lobectomy: Patient was extubated yesterday. Patient doing well on nasal cannula. Will transition patient from ICU to the floor. Will have physical therapy assess ambulation. Continue COPD medication and antibiotic therapy. Case discussed with pulmonology. Patient would benefit with skilled placement. Patient agrees. Will pursue this. I am covering for Dr. Wilkins this . He is to return on Friday. Acute on chronic renal disease, stage III with hypernatremia: This continues to improve. IV fluids adjusted by Nephrology. Encourage oral intake. Atrial fibrillation: Continue with metoprolol and amiodarone. Patient on Lovenox. Cardiology has evaluated patient. No cardiac intervention is recommended at this time due to his renal disease. Hypertension: Continue medication. CAD: Patient likely with underlying CAD. Troponin elevated likely due to respiratory failure. No cardiac intervention is recommended at this time due to his renal disease. Will monitor closely. Anemia likely of chronic disease: Will monitor hemoglobin. Will check iron and B12 studies. Time Spent Managing Pts Care (In Minutes): 55
--- NOTE | 2019-01-08 12:30 | P.PN ---
Subjective Date of Service: 01/08/19 Primary Care Provider: Dr. Wilkins(I am covering for him) Chief Complaint: Respiratory failure Subjective: Improving still wheezing NA 150 today with poor oral intake , will increase d5W to 70ml/hr ca improving Cr down to 1.89 trace edmea , will hold on lasix for now Physical Examination - Vital Signs Temperature: 98.3 F Blood Pressure: 162/90 Pulse: 81 Respirations: 23 Pulse Ox (%): 98 - Physical Exam General: Alert, Moderate distress HEENT: Atraumatic Neck: Supple, Without JVD or thyroid abnormality Respiratory: Inspiratory wheezes Cardiovascular: Regular rate/rhythm, Normal S1 S2, No rubs, No murmurs, Edema Gastrointestinal: Soft and benign Integumentary: No rashes - Studies Medications List Reviewed: Yes Assessment And Plan - Current Problems (Diagnosis) (1) SHARITA (acute kidney injury) Current Visit: Yes Status: Acute (2) Hypercalcemia Current Visit: Yes Status: Acute (3) Atrial fibrillation Current Visit: No Status: Chronic Qualifiers: Atrial fibrillation type: chronic Qualified Code(s): I48.2 - Chronic atrial fibrillation - Plan Assessment And Plan: SHARITA now likely due to prerenal improved Cont D5W baseline ~2.0 uS: no hydro hypernatremia will increase D5W COPD with HX of lung Ca pt with advanced COPD extubated cont inhalers as per pulmonary off steroids hypocalcemia pt was hypercalcemic on admission will cont calcium carbonate Afib on metoprolol and amiodarone Anemia pt with normal Hb on admission dilutional vs stres ulcer cont famotidine f/u w/u
[2019-01-08] MEDS: METOPROLOL XL 50 MG TAB PO SCH ×2 (12:33→22:31)
--- NOTE | 2019-01-08 15:19 | P.PN ---
Subjective Date of Service: 01/08/19 Primary Care Provider: Dr. Wilkins(I am covering for him) Chief Complaint: COPD Pt i sdoign much better. Transferred to the floor no new complaints feels weak Review of Systems General: Weakness Respiratory: Shortness of Breath Physical Examination - Vital Signs Temperature: 98.3 F Blood Pressure: 162/90 Pulse: 81 Respirations: 23 Pulse Ox (%): 98 - Physical Exam General: Alert, Oriented x3 Neck: Supple Respiratory: Clear to auscultation bilaterally, Diminished - Studies Medications List Reviewed: Yes Assessment & Plan - Problems (Diagnosis) (1) COPD exacerbation Onset Date: 04/27/18 Current Visit: No Status: Acute Plan: Patient admitted with COPD exacerbation was extubated yesterday and is doing much better currently on the floor blood pressure is little elevated oxygenation satisfactory patient is still hypernatremic renal function is improving he is cultures are all negative ovoid steroids resume scheduled bronchodilators patient is on D5 water doubt pneumonia Dc antibiotics ovoid steroids Physician Review Additional Text: Impression: Acute on chronic respiratory failure secondary COPD exacerbation with noted left pleural effusion complicated with history of lung cancer and prior lobectomy Acute on chronic renal disease, stage III with hypernatremia Atrial fibrillation Hypertension CAD Anemia likely of chronic disease Plan: Acute on chronic respiratory failure secondary COPD exacerbation with noted left pleural effusion complicated with history of lung cancer and prior lobectomy: Patient was extubated yesterday. Patient doing well on nasal cannula. Will transition patient from ICU to the floor. Will have physical therapy assess ambulation. Continue COPD medication and antibiotic therapy. Case discussed with pulmonology. Patient would benefit with skilled placement. Patient agrees. Will pursue this. I am covering for Dr. Wilkins this weekend. He is to return on Friday. Acute on chronic renal disease, stage III with hypernatremia: This continues to improve. IV fluids adjusted by Nephrology. Encourage oral intake. Atrial fibrillation: Continue with metoprolol and amiodarone. Patient on Lovenox. Cardiology has evaluated patient. No cardiac intervention is recommended at this time due to his renal disease. Hypertension: Continue medication. CAD: Patient likely with underlying CAD. Troponin elevated likely due to respiratory failure. No cardiac intervention is recommended at this time due to his renal disease. Will monitor closely. Anemia likely of chronic disease: Will monitor hemoglobin. Will check iron and B12 studies.
[2019-01-08] MEDS: AMLODIPINE 5 MG TAB PO SCH (16:52)
[2019-01-08] MEDS: ENOXAPARIN 60 MG/0.6 ML SQ SCH (16:59)
[2019-01-08] MEDS: ARFORMOTEROL TARTRATE 15 MCG/2 ML VIAL.NEB NEB SCH (19:53)
[2019-01-08] MEDS: LORazepam 2 MG/ML VIAL IV PRN (22:24)
[2019-01-08] MEDS: HYDROCODONE/APAP 7.5/325 MG TAB PO PRN (22:25)
[2019-01-09] MEDS: IPRATROPIUM BROM 0.5MG/2.5ML NEB SCH ×4 (02:00→19:25)
[2019-01-09] MEDS: HYDROCODONE/APAP 7.5/325 MG TAB PO PRN ×2 (05:54→13:31)
[2019-01-09 06:59] LABS: Absolute Lymphocytes (CBC) 0.2 K/uL (0.7-4.9); Absolute Monocytes 0.5 K/uL (0.1-1.3); Absolute Neutrophil 4.9 K/uL (1.8-8.0); Basophils % 0.1 % (0-1.3); Eosinophils % 3.8 % (0-4.4); Lymphocytes % 2.9 % (15.3-44.8); MPV 8.8 fL (7.6-11.3); Monocytes % 7.9 % (3.3-12.3); RBC Red Blood Cell Count 3.25 M/uL (4.33-5.43)
[2019-01-09 07:08] LABS: Magnesium 1.8 mg/dL (1.8-2.4); Potassium 3.8 mmol/L (3.5-5.1)
[2019-01-09] MEDS: ARFORMOTEROL TARTRATE 15 MCG/2 ML VIAL.NEB NEB SCH ×2 (08:00→19:25)
--- NOTE | 2019-01-09 08:01 | RAD REPORT ---
EXAM DESCRIPTION: RAD - Chest Pa And Lat (2 Views) - 01/09/2019 6:29 am CLINICAL HISTORY: Shortness of breath, COPD COMPARISON: January 08 TECHNIQUE: Portable frontal and lateral views were obtained. FINDINGS: The lungs are normal volume. Chronic interstitial lung disease is again noted as a baselin e. Small left pleural effusion remains. No new or progressive lung parenchymal process. Heart size is normal and central vasculature is within normal limits. No pneumothorax. No acute bony finding no jaiden. No aortic abnormality. IMPRESSION: Left pleural effusion with left base patchy opacification stable from prior day study.
[2019-01-09] MEDS ORDERED: MAGNESIUM SULFATE 1 gm IVPB 1 GM/100 ML BAG IV ONE (09:00)
[2019-01-09] MEDS ORDERED: POTASSIUM CL SA 10 MEQ TAB PO ONE (09:00)
[2019-01-09] MEDS: METOPROLOL XL 50 MG TAB PO SCH ×2 (10:05→20:33)
[2019-01-09] MEDS: CALCIUM CARBONATE CHEW 500MG TAB PO SCH ×4 (10:05→20:33)
[2019-01-09] MEDS: VITAMIN D 1000 UNIT TAB PO SCH (10:06)
[2019-01-09] MEDS: AMLODIPINE 5 MG TAB PO SCH (10:06)
[2019-01-09] MEDS: FAMOTIDINE 20 MG TAB PO SCH (10:06)
[2019-01-09] MEDS: THIAMINE HCL 100 MG TABLET PO SCH (10:06)
[2019-01-09] MEDS: FOLIC ACID 1 MG TABLET PO SCH (10:06)
[2019-01-09] MEDS: AMIODARONE HCL 200 MG TAB PO SCH (10:06)
[2019-01-09] MEDS: D5W 1,000 ML IV SCH ×2 (11:00→19:10)
--- NOTE | 2019-01-09 12:56 | P.PN ---
Subjective Date of Service: 01/09/19 Primary Care Provider: Dr. Wilkins(I am covering for him) Chief Complaint: COPD Subjective: Improving Physical Examination - Vital Signs Temperature: 98 F Blood Pressure: 124/62 Pulse: 74 Respirations: 20 Pulse Ox (%): 97 - Physical Exam General: Alert, In no apparent distress, Oriented x3, Cooperative HEENT: Atraumatic Neck: Supple Respiratory: Clear to auscultation bilaterally, Normal air movement Cardiovascular: Normal pulses, Regular rate/rhythm Gastrointestinal: Normal bowel sounds, Soft and benign, Non-distended, No tenderness, No masses, No rebound, No guarding Musculoskeletal: No erythema, No tenderness, No warmth Integumentary: No erythema, No warmth, No cyanosis Neurological: Normal speech, Normal strength at 5/5 x4 extr, Normal tone - Studies Medications List Reviewed: Yes Assessment & Plan Discharge Plan: Other (senior living facility) Plan to discharge in: 48 Hours Physician Review Additional Text: Impression: Acute on chronic respiratory failure secondary COPD exacerbation with noted left pleural effusion complicated with history of lung cancer and prior lobectomy Acute on chronic renal disease, stage III with hypernatremia Atrial fibrillation Hypertension CAD Anemia likely of chronic disease Plan: Acute on chronic respiratory failure secondary COPD exacerbation with noted left pleural effusion complicated with history of lung cancer and prior lobectomy: Patient do wean well. Patient on nasal cannula. Will have physical therapy assess ambulation. Continue COPD medication and antibiotic therapy. Case discussed with pulmonology yesterday. Patient agreeable to skilled placement. This will likely occur on Friday. I am covering for Dr. Wilkins. Acute on chronic renal disease, stage III with hypernatremia: This continues to improve. IV fluids adjusted by Nephrology. Encourage oral intake. Atrial fibrillation: Continue with metoprolol and amiodarone. Patient on Lovenox. Cardiology has evaluated patient. No cardiac intervention is recommended at this time due to his renal disease. Hypertension: Continue medication. CAD: Patient likely with underlying CAD. Troponin elevated likely due to respiratory failure. No cardiac intervention is recommended at this time due to his renal disease. Will monitor closely. Anemia likely of chronic disease: Will monitor hemoglobin. Time Spent Managing Pts Care (In Minutes): 55
--- NOTE | 2019-01-09 16:32 | PN ---
Date of Progress Note: 01/09/2019 Subjective: The patient was admitted with acute kidney injury secondary to hypercalcemia and seconda ry to constipation. Workup for primary hyperparathyroidism was ruled out. Physical Examination: Vital Signs: Blood pressure 124/62, pulse of 74, afebrile. The patient had good urine output, intub ated, extubated. Currently, had urine output of 2400. Chest: Faint crackles on the base. Heart: S1-S2, systolic murmur. Abdomen: Soft, nontender. Extremities: No edema. Laboratory Data: H and H 9.07/01. Sodium 146, potassium 3.8, bicarb 25, BUN 41, creatinine down to 1 .6, GFR of 42, calcium 8.1, magnesium 1.8. Current Medications: The patient on includes. 1.Lovenox. 2.Calcium carbonate. 3.Amiodarone. 4.Norvasc 5 mg daily. 5.Tylenol. 6.Metoprolol 50 b.i.d. 7.Folic acid. 8.D5 at 75 per hour. Assessment And Plan: 1.Acute kidney injury secondary to prerenal, secondary to dehydration, secondary to calcium diuresis , resolved. 2.Hypertension, controlled, optimal continue current medication. 3.Hypernatremia secondary to diuresis. I am going to keep holding diuresis continue D5 for today. I am going to decrease the rate to 50 p.o. per hour and hopefully tomorrow we can discontinue IV flui d. We will monitor the patient. 4.Respiratory failure status post intubation. 5.The patient will follow up with Pulmonary. 6.Congestive heart failure, currently patient euvolemic. Keep holding diuresis. 7.Deconditioning continue PT OT. 8.Vitamin D deficiency. Start calcium supplement. 9.Hypercalcemia, resolved. LALITA/RYAN Voice ID: [id number] Report ID: [id number]
[2019-01-09] MEDS: ENOXAPARIN 60 MG/0.6 ML SQ SCH (17:05)
[2019-01-09] MEDS: ENSURE ENLIVE 237 ML CAN PO SCH (20:36)
[2019-01-10] MEDS: IPRATROPIUM BROM 0.5MG/2.5ML NEB SCH ×4 (01:45→20:00)
[2019-01-10] MEDS: LORazepam 2 MG/ML VIAL IV PRN (04:19)
[2019-01-10 04:58] VITALS: BMI 23.6
[2019-01-10 05:19] LABS: Absolute Lymphocytes (CBC) 0.2 K/uL (0.7-4.9); Absolute Monocytes 0.6 K/uL (0.1-1.3); Absolute Neutrophil 5.5 K/uL (1.8-8.0); Basophils % 0.2 % (0-1.3); Eosinophils % 2.5 % (0-4.4); Hematocrit 30.3 % (39.6-49.0); Lymphocytes % 2.7 % (15.3-44.8); MPV 8.9 fL (7.6-11.3); RBC Red Blood Cell Count 3.41 M/uL (4.33-5.43)
[2019-01-10 05:23] LABS: Magnesium 1.9 mg/dL (1.8-2.4); Potassium 3.8 mmol/L (3.5-5.1)
[2019-01-10] MEDS: ARFORMOTEROL TARTRATE 15 MCG/2 ML VIAL.NEB NEB SCH ×2 (08:15→20:00)
[2019-01-10] MEDS: VITAMIN D 1000 UNIT TAB PO SCH (08:45)
[2019-01-10] MEDS: CALCIUM CARBONATE CHEW 500MG TAB PO SCH ×4 (08:45→20:54)
[2019-01-10] MEDS: METOPROLOL XL 50 MG TAB PO SCH ×2 (08:46→20:53)
[2019-01-10] MEDS: AMIODARONE HCL 200 MG TAB PO SCH (08:46)
[2019-01-10] MEDS: AMLODIPINE 5 MG TAB PO SCH ×2 (08:46→12:45)
[2019-01-10] MEDS: THIAMINE HCL 100 MG TABLET PO SCH (08:46)
[2019-01-10] MEDS: FOLIC ACID 1 MG TABLET PO SCH (08:47)
[2019-01-10] MEDS: FAMOTIDINE 20 MG TAB PO SCH (08:47)
[2019-01-10] MEDS: ENSURE ENLIVE 237 ML CAN PO SCH ×2 (08:48→20:54)
[2019-01-10] MEDS: HYDROCODONE/APAP 7.5/325 MG TAB PO PRN ×2 (08:49→19:42)
[2019-01-10] MEDS: D5W 1,000 ML IV SCH (08:57)
[2019-01-10] MEDS ORDERED: POTASSIUM CL SA 10 MEQ TAB PO ONE (09:00)
--- NOTE | 2019-01-10 09:55 | P.PN ---
Subjective Date of Service: 01/10/19 Primary Care Provider: Dr. Wilkins(I am covering for him) Chief Complaint: COPD Subjective: Improving (Patient continues to improve. Patient working with physical therapy.) Physical Examination - Vital Signs Temperature: 98 F Blood Pressure: 161/78 Pulse: 82 Respirations: 16 Pulse Ox (%): 95 - Physical Exam General: Alert, In no apparent distress, Oriented x3, Cooperative HEENT: Atraumatic Neck: Supple Respiratory: Expiratory wheezes (Minimal crackles. Patient on nasal cannula) Cardiovascular: Normal pulses, Regular rate/rhythm Gastrointestinal: Normal bowel sounds, Soft and benign, Non-distended, No tenderness, No masses, No rebound, No guarding Musculoskeletal: No erythema, No tenderness, No warmth Integumentary: No tenderness/swelling, No erythema, No warmth, No cyanosis Neurological: Normal speech, Normal strength at 5/5 x4 extr, Normal tone, Normal affect - Studies Medications List Reviewed: Yes Assessment & Plan Discharge Plan: Other (residential facility) Plan to discharge in: 24 Hours Physician Review Additional Text: Impression: Acute on chronic respiratory failure secondary COPD exacerbation with noted left pleural effusion complicated with history of lung cancer and prior lobectomy Acute on chronic renal disease, stage III with hypernatremia Atrial fibrillation Hypertension CAD Anemia likely of chronic disease Plan: Acute on chronic respiratory failure secondary COPD exacerbation with noted left pleural effusion complicated with history of lung cancer and prior lobectomy: Patient continues to do well. Patient on nasal cannula. Continue with physical therapy. Continue with COPD and oxygen. Await approval for SNF. I am covering for Dr. Wilkins. He will take over tomorrow. Acute on chronic renal disease, stage III with hypernatremia: This continues to improve. IV fluids continued to be adjusted by Nephrology. Encourage oral intake. Atrial fibrillation: Continue with metoprolol and amiodarone. Patient on Lovenox. Cardiology has evaluated patient. No cardiac intervention is recommended at this time due to his renal disease. Hypertension: Continue medication. CAD: Patient likely with underlying CAD. Troponin elevated likely due to respiratory failure. No cardiac intervention is recommended at this time due to his renal disease. Will monitor closely. Anemia likely of chronic disease: Will continue to monitor hemoglobin. Time Spent Managing Pts Care (In Minutes): 55
--- NOTE | 2019-01-10 11:32 | RAD REPORT ---
EXAM DESCRIPTION: RAD - Chest Single View - 01/10/2019 6:35 am CLINICAL HISTORY: Respiratory failure Chest pain. COMPARISON: Chest Pa And Lat (2 Views) dated 01/09/2019; Chest Single View dated 01/08/2019; Chest Singl e View dated 01/07/2019; Abdomen 1 View (KUB) dated 01/06/2019 FINDINGS: Portable technique limits examination quality. Small left pleural effusion is again noted, unchanged. The right lung appears grossly clear. Left-maida ed PICC line has tip in the SVC. The heart is mildly prominent size. No displaced fractures. IMPRESSION: Stable small left pleural effusion.
[2019-01-10] MEDS ORDERED: POTASSIUM 25 MEQ EFFERV TAB PO ONE (12:00)
[2019-01-10] MEDS ORDERED: MAGNESIUM SULFATE 1 gm IVPB 1 GM/100 ML BAG IV ONE (12:00)
[2019-01-10] MEDS: TRAMADOL HCL 50 MG TAB PO PRN (12:43)
[2019-01-10 13:50] LABS: Urine Appearance CLEAR; Urine Bilirubin NEGATIVE (NEG); Urine Blood 1+ (NEG); Urine Color YELLOW; Urine Glucose 2+ (NEG); Urine Protein NEGATIVE (NEG); Urine Urobilinogen 0.2 mg/dL (0.2-1.0); Urine pH 5.5 (5.0-7.0)
[2019-01-10 13:53] LABS: Urine Microscopic Reflex ORDER UMIC
[2019-01-10 13:58] LABS: Urine Bacteria NONE SEEN /HPF (NONE SEEN); Urine RBC <5 /HPF (NONE SEEN)
[2019-01-10 13:59] LABS: Urine Culture Reflex Order NOT NEEDED; Urine Yeast FEW (NONE SEEN)
[2019-01-10] MEDS: ENOXAPARIN 60 MG/0.6 ML SQ SCH (16:16)
--- NOTE | 2019-01-10 16:38 | PN ---
Date of Progress Note: 01/10/2019 Subjective: The patient was admitted with hypercalcemia, acute kidney injury, developed respiratory failure, intubated, extubated. The patient started participating in physical therapy. The patient t george complaining of flank pain, bilateral. No dysuria. No hematuria. Physical Examination: Vital Signs: Blood pressure 161/78, pulse of 81, afebrile. The patient had good urine output, voidi ng. Chest: Clear to auscultation. Heart: S1, S2. Regular. Abdomen: Soft, nontender. Only tenderness on the flank, bilateral. Extremities: No edema. Laboratory Data: WBC 6.4, H and H 10.1/30.3, platelet 172. Sodium 143, potassium 3.8, bicarb 26, BU N 35, creatinine down to 1.6, GFR of 44, calcium 8.5, magnesium 1.9. Current Medications: The patient on its include albuterol, Lovenox, calcium carbonate 500 q.i.d., am iodarone, amlodipine 5 mg daily, metoprolol 50 b.i.d., Ensure, folic acid, morphine, tramadol, cholec alciferol and thiamin. Assessment And Plan: 1.Acute kidney injury secondary to calcium diuresis, prerenal on chronic kidney disease, recovered, resolved. I see the patient, his normal volume. I am going to discontinue IV fluid and we will tarah tor. 2.Hypernatremia secondary to over-diuresis, recovered, resolved. Discontinue IV fluid. 3.Hypercalcemia secondary to constipation. Hyperparathyroidism, was ruled out, resolved. We will m onitor. 4.Hypernatremia, resolved. 5.Chronic obstructive pulmonary disease exacerbation. Follow up with Pulmonary. Continue current treatment. 6.Flank pain. I am going to go ahead and get UA. LALITA/RYAN Voice ID: [id number] Report ID: [id number]
[2019-01-11] MEDS: LORazepam 2 MG/ML VIAL IV PRN ×3 (01:10→20:50)
[2019-01-11] MEDS: IPRATROPIUM BROM 0.5MG/2.5ML NEB SCH ×4 (02:00→20:00)
[2019-01-11] MEDS: ARFORMOTEROL TARTRATE 15 MCG/2 ML VIAL.NEB NEB SCH ×2 (07:35→20:00)
--- NOTE | 2019-01-11 08:57 | P.PN ---
Subjective Date of Service: 01/11/19 Primary Care Provider: Dr. Wilkins(I am covering for him) Chief Complaint: COPD Patient is doing much better is still feels a little weak as been ambulating shortness of breath has also improved Review of Systems General: Weakness Respiratory: Shortness of Breath Physical Examination - Vital Signs Temperature: 98.0 F Blood Pressure: 173/84 Pulse: 77 Respirations: 18 Pulse Ox (%): 100 - Physical Exam General: Alert, In no apparent distress, Oriented x3 Respiratory: Clear to auscultation bilaterally, Diminished Cardiovascular: No edema, Normal S1 S2 - Studies Medications List Reviewed: Yes Assessment & Plan - Problems (Diagnosis) (1) COPD exacerbation Onset Date: 04/27/18 Current Visit: No Status: Acute Plan: Patient admitted with COPD exacerbation he is doing much better labs reviewed kidney function has improved medication reviewed input on to rule out pulmonary embolism he is high risk of ordered venous Dopplers V/Q scan and started him on empiric Eliquis 10 mg twice a day oxygenation satisfactory Physician Review Additional Text: Impression: Acute on chronic respiratory failure secondary COPD exacerbation with noted left pleural effusion complicated with history of lung cancer and prior lobectomy Acute on chronic renal disease, stage III with hypernatremia Atrial fibrillation Hypertension CAD Anemia likely of chronic disease Plan: Acute on chronic respiratory failure secondary COPD exacerbation with noted left pleural effusion complicated with history of lung cancer and prior lobectomy: Patient continues to do well. Patient on nasal cannula. Continue with physical therapy. Continue with COPD and oxygen. Await approval for SNF. I am covering for Dr. Wilkins. He will take over tomorrow. Acute on chronic renal disease, stage III with hypernatremia: This continues to improve. IV fluids continued to be adjusted by Nephrology. Encourage oral intake. Atrial fibrillation: Continue with metoprolol and amiodarone. Patient on Lovenox. Cardiology has evaluated patient. No cardiac intervention is recommended at this time due to his renal disease. Hypertension: Continue medication. CAD: Patient likely with underlying CAD. Troponin elevated likely due to respiratory failure. No cardiac intervention is recommended at this time due to his renal disease. Will monitor closely. Anemia likely of chronic disease: Will continue to monitor hemoglobin.
[2019-01-11] MEDS: ENSURE ENLIVE 237 ML CAN PO SCH ×2 (09:00→20:56)
--- NOTE | 2019-01-11 10:24 | RAD REPORT ---
EXAM DESCRIPTION: US - Extrem Venous W Compress Mario Alberto - 01/11/2019 10:16 am CLINICAL HISTORY: Rule out DVT Bilateral leg edema and swelling. COMPARISON: Extremity Nonvascular Complete dated 01/28/2018 TECHNIQUE: Real-time sonographic interrogation of the left and right lower extremity deep venous sys tems was performed. FINDINGS: Normal compressibility, flow augmentation, phasic flow and spontaneous flow is identified in both the left and right lower extremity deep venous systems. IMPRESSION: No sonographic evidence of left or right lower extremity deep venous thrombosis.
[2019-01-11] MEDS: THIAMINE HCL 100 MG TABLET PO SCH (10:37)
[2019-01-11] MEDS: CALCIUM CARBONATE CHEW 500MG TAB PO SCH ×4 (10:37→20:56)
[2019-01-11] MEDS: AMLODIPINE 5 MG TAB PO SCH (10:38)
[2019-01-11] MEDS: FOLIC ACID 1 MG TABLET PO SCH (10:38)
[2019-01-11] MEDS: AMIODARONE HCL 200 MG TAB PO SCH (10:38)
[2019-01-11] MEDS: VITAMIN D 1000 UNIT TAB PO SCH (10:38)
[2019-01-11] MEDS: FAMOTIDINE 20 MG TAB PO SCH (10:38)
[2019-01-11] MEDS: METOPROLOL XL 50 MG TAB PO SCH ×2 (10:38→20:50)
[2019-01-11] MEDS: APIXABAN 5 MG TABLET PO SCH ×2 (10:42→20:50)
--- NOTE | 2019-01-11 12:09 | RAD REPORT ---
EXAM DESCRIPTION: NM - Vent Perfusion VQ Scan - 01/11/2019 11:56 am CLINICAL HISTORY: Shortness of breath, lung cancer, left upper lobectomy 2017 COMPARISON: Chest exam January 10, 2019 TECHNIQUE: The patient was administered 12.9 mCi Xenon 133 gas with posterior projection inspiration , equilibrium, and washout views obtained. The patient was then administered 7.3 mCi Tc-99m MAA label ed RBCs followed by standard 8 view protocol. FINDINGS: There is significant asymmetry of ventilation with decreased throughout most of the left l abad field. Patient is status post left upper lobectomy. Ventilation improves over the course of the e xamination with a mild overall left-sided air trapping pattern. Profusion progressively decreases ove r the course of the examination in the right lung field. Mild to moderate air trapping is present in the lower right lung field. A small subsegmental perfusion defect is present in the posterosuperior right upper lobe. Focal defec ts are present in the left apex medial left base and lateral left base. Patient has existing pleural and parenchymal disease in the left base on plain film. IMPRESSION: Right lung field findings are considered low probability for pulmonary embolism. Due to the existing chronic disease, left lung field findings are characterized as intermediate proba bility. Mild to moderate air trapping in the right lung base and mild air trapping in the mid left lung field .
[2019-01-11] MEDS ORDERED: ENOXAPARIN 60 MG/0.6 ML SQ SCH (17:00)
[2019-01-11] MEDS: HYDROCODONE/APAP 7.5/325 MG TAB PO PRN (19:08)
[2019-01-12] MEDS: IPRATROPIUM BROM 0.5MG/2.5ML NEB SCH ×4 (02:00→20:00)
--- NOTE | 2019-01-12 02:20 | PN ---
Date of Progress Note: 01/11/2019 Chief Complaint: Acute kidney injury. History Of Present Illness: Acute kidney injury, moderately severe, nonoliguric, associated with hyp ercalcemia. The patient was found to have hypernatremia and received IV fluids. Hypercalcemia was improving. Hy perparathyroidism was ruled out. Review of Systems: Denies fever, chills. Physical Examination: Lungs: Few crackles at bases. Heart: S1-S2. Abdomen: Soft, benign, and nontender. Extremities: Minimal edema. Lab Work: Hemoglobin 10.1, WBC 6.4, and platelet count 172,000. Chemistries showed sodium 142, pota ssium 4.0, chloride 108, CO2 27, BUN 24, and creatinine 1.5. Impression And Plan: 1.Acute kidney injury on chronic kidney disease. Creatinine level has improved from 4.94-1.5. Cont inue to monitor renal function and adjust hydration as needed. 2.Hypercalcemia. Calcium level on arrival to the hospital was 14.5. The patient responded to the t reatment and calcium level improved to 8.5. 3.There is no evidence of metabolic acidosis. Hypernatremia is improving. Sodium level improved fr om 150-142. P.o. intake is somewhat advancing. Continue to monitor fluid balance. Adjust IV fluids as needed. 4.Hypertension. Blood pressure is improving. Today, blood pressure is 134/82. Continue current oh dication. EB/MODL Voice ID: [id number] Report ID: [id number]
[2019-01-12] MEDS: HYDROCODONE/APAP 7.5/325 MG TAB PO PRN ×2 (05:16→13:05)
[2019-01-12 06:07] LABS: Phosphorus 2.3 mg/dL (2.5-4.9)
[2019-01-12] MEDS: POTASS/SODIUM PHOSPHATE 1 PKT POWD.PACK PO SCH ×3 (07:20→09:56)
[2019-01-12] MEDS: ARFORMOTEROL TARTRATE 15 MCG/2 ML VIAL.NEB NEB SCH ×2 (07:43→20:00)
[2019-01-12] MEDS: ENSURE ENLIVE 237 ML CAN PO SCH ×2 (09:00→21:00)
[2019-01-12] MEDS: CALCIUM CARBONATE CHEW 500MG TAB PO SCH ×4 (09:55→21:10)
[2019-01-12] MEDS: AMLODIPINE 5 MG TAB PO SCH (09:57)
[2019-01-12] MEDS: VITAMIN D 1000 UNIT TAB PO SCH (09:58)
[2019-01-12] MEDS: THIAMINE HCL 100 MG TABLET PO SCH (09:58)
[2019-01-12] MEDS: METOPROLOL XL 50 MG TAB PO SCH ×2 (09:58→21:15)
[2019-01-12] MEDS: FOLIC ACID 1 MG TABLET PO SCH (09:58)
[2019-01-12] MEDS: FAMOTIDINE 20 MG TAB PO SCH (09:59)
[2019-01-12] MEDS: AMIODARONE HCL 200 MG TAB PO SCH (09:59)
[2019-01-12] MEDS: APIXABAN 5 MG TABLET PO SCH ×2 (09:59→21:10)
[2019-01-12] MEDS: LORazepam 2 MG/ML VIAL IV PRN (12:14)
--- NOTE | 2019-01-12 14:29 | PN ---
Date of Progress Note: 01/11/2019 The patient is basically back to baseline awaiting disposition. Apparently the insurance and SNF hav e correlated their activity and presumably he could be discharged in the a.m. Workup for DVT and PE is basically negative. I feel the patient is basically at baseline. HR/MODL Voice ID: [id number] Report ID: [id number]
--- NOTE | 2019-01-12 18:47 | PN ---
Date of Progress Note: 01/12/2019 Subjective: The patient was admitted with hypercalcemia, acute kidney injury, developed respiratory failure, intubated, extubated. The patient on physical therapy. Physical Examination: Vital Signs: Blood pressure 143/66, pulse of 78, afebrile. Chest: Clear to auscultation. Heart: S1, S2, regular. Abdomen: Soft, nontender. Extremities: No edema. Laboratory Data: WBC 6.4, H and H 10.1/30.3, platelets 172. Sodium 141, potassium 4, bicarb 27, BUN 21, creatinine 1.5, calcium 8.5. Current Medications: The patient on it include: 1.Albuterol. 2.Aspirin. 3.Amlodipine. 4.Amiodarone. 5.Metoprolol 50 b.i.d. 6.Lorazepam. 7.Pepcid. 8.Hydrocodone. 9.Tramadol. 10.Cholecalciferol. Assessment And Plan: 1.Chronic kidney disease status post acute kidney injury secondary to calcium diuresis, prerenal, re covered, resolved. 2.Hypertension, controlled, optimal. Continue current medication. I am going to resume low dose of Lasix to establish better volume control. 3.Hypercalcemia secondary to hydrochlorothiazide constipation, recovered, resolve. 4.Vitamin D deficiency. Continue supplement. 5.Chronic obstructive pulmonary disease exacerbation as by Pulmonary. 6.Congestive heart failure. Looks to me to be on the left side. We will resume low dose of Lasix. 7.Deconditioning. Continue PT/OT. Follow up with primary. LALITA/RYAN Voice ID: [id number] Report ID: [id number]
[2019-01-12] MEDS: TRAMADOL HCL 50 MG TAB PO PRN (21:15)
[2019-01-12] MEDS: LORAZEPAM 1 MG TABLET PO PRN (21:15)
[2019-01-13] MEDS: IPRATROPIUM BROM 0.5MG/2.5ML NEB SCH ×4 (02:00→20:00)
[2019-01-13] MEDS: LORAZEPAM 1 MG TABLET PO PRN ×3 (04:20→21:39)
[2019-01-13 05:45] LABS: Phosphorus 3.2 mg/dL (2.5-4.9); Potassium 4.2 mmol/L (3.5-5.1)
[2019-01-13] MEDS: ARFORMOTEROL TARTRATE 15 MCG/2 ML VIAL.NEB NEB SCH ×2 (08:49→20:00)
[2019-01-13] MEDS: THIAMINE HCL 100 MG TABLET PO SCH (09:21)
[2019-01-13] MEDS: AMIODARONE HCL 200 MG TAB PO SCH (09:21)
[2019-01-13] MEDS: FOLIC ACID 1 MG TABLET PO SCH (09:21)
[2019-01-13] MEDS: VITAMIN D 1000 UNIT TAB PO SCH (09:21)
[2019-01-13] MEDS: FAMOTIDINE 20 MG TAB PO SCH (09:21)
[2019-01-13] MEDS: APIXABAN 5 MG TABLET PO SCH ×2 (09:21→21:38)
[2019-01-13] MEDS: CALCIUM CARBONATE CHEW 500MG TAB PO SCH ×4 (09:21→21:38)
[2019-01-13] MEDS: METOPROLOL XL 50 MG TAB PO SCH ×2 (09:22→21:38)
[2019-01-13] MEDS: AMLODIPINE 5 MG TAB PO SCH (09:22)
[2019-01-13] MEDS: FUROSEMIDE 20 MG TABLET PO SCH (09:23)
[2019-01-13] MEDS: ENSURE ENLIVE 237 ML CAN PO SCH ×2 (09:27→21:42)
[2019-01-13] MEDS: TRAMADOL HCL 50 MG TAB PO PRN (10:53)
--- NOTE | 2019-01-13 12:27 | PN ---
Date of Progress Note: 01/12/2019 The patient is basically stable at this stage requiring his baseline oxygen. He is still not very ac tive, however waiting placement. Apparently, there has been acceptance at SNF. There is some financ ial consideration and discussions are underway, if acceptable, all parties should be able to discharg e probably in the a.m. HR/MODL Voice ID: [id number] Report ID: [id number]
--- NOTE | 2019-01-13 14:24 | PN ---
Date of Progress Note: 01/13/2019 Subjective: The patient still having shortness of breath. Physical Examination: Vital Signs: Blood pressure 142/65, pulse of 81. Chest: Wheezing bilateral. Heart: S1 and S2, regular. Abdomen: Soft and nontender. Extremities: No edema. Laboratory Data: WBC 6.4, H and H 10.1/30.3, platelets 172. Sodium 141, potassium 4.2, bicarb 27, B UN 16, creatinine 1.6, calcium 8.2. Current Medications: The patient on include albuterol, amiodarone, amlodipine, metoprolol, lorazepam , Lasix 20 daily, folic acid, breathing treatment. Assessment And Plan: 1.Chronic kidney disease status post acute kidney injury secondary to calcium diuresis/cardiorenal, recovered back to baseline. 2.Hypertension, controlled, optimal. Continue current medication. 3.Congestive heart failure. Continue current Lasix dose. 4.Chronic obstructive pulmonary disease exacerbation, as by primary. 5.Hypercalcemia secondary to constipation, resolved. 6.Vitamin D deficiency. Continue supplement. HARPAL Voice ID: [id number] Report ID: [id number]
--- NOTE | 2019-01-14 01:48 | PN ---
Date of Progress Note: 01/13/2019 Subjective: The patient is status quo. Still gets marked dyspnea with minimal exertion, still quite weak and balance issues. I feel that he would benefit from physical therapy and pulmonary therapy a nd overall condition by a SNF unit. However, there seems to be some problems with the insurance as o f now. An attempt was made for a peer to peer by Dr. Sawant. His pulmonary disease by far and haja y is biggest problem. However, there was no apparent presence of physician at the time of Dr. Martin al called. I had a long discussion with the family and I have been evaluating various possibilities and I will continue the discussion with the medical social consultant and the family in the morning. If in fac t he is not okay for SNF, then home with home health with PT, OT, and respiratory therapy would be in dicated. HR/MODL Voice ID: [id number] Report ID: [id number]
[2019-01-14] MEDS: IPRATROPIUM BROM 0.5MG/2.5ML NEB SCH ×4 (02:00→20:00)
[2019-01-14] MEDS: LORAZEPAM 1 MG TABLET PO PRN ×3 (04:40→18:23)
[2019-01-14] MEDS: TRAMADOL HCL 50 MG TAB PO PRN (05:27)
[2019-01-14] MEDS: ARFORMOTEROL TARTRATE 15 MCG/2 ML VIAL.NEB NEB SCH ×2 (08:52→20:00)
[2019-01-14] MEDS: VITAMIN D 1000 UNIT TAB PO SCH (09:08)
[2019-01-14] MEDS: AMLODIPINE 5 MG TAB PO SCH (09:08)
[2019-01-14] MEDS: METOPROLOL XL 50 MG TAB PO SCH ×2 (09:08→21:11)
[2019-01-14] MEDS: FOLIC ACID 1 MG TABLET PO SCH (09:08)
[2019-01-14] MEDS: THIAMINE HCL 100 MG TABLET PO SCH (09:08)
[2019-01-14] MEDS: FAMOTIDINE 20 MG TAB PO SCH (09:08)
[2019-01-14] MEDS: FUROSEMIDE 20 MG TABLET PO SCH (09:09)
[2019-01-14] MEDS: ENSURE ENLIVE 237 ML CAN PO SCH ×2 (09:09→21:10)
[2019-01-14] MEDS: APIXABAN 5 MG TABLET PO SCH ×2 (09:09→21:10)
[2019-01-14] MEDS: CALCIUM CARBONATE CHEW 500MG TAB PO SCH ×4 (09:09→21:10)
[2019-01-14] MEDS: AMIODARONE HCL 200 MG TAB PO SCH (09:09)
--- NOTE | 2019-01-14 19:31 | PN ---
Date of Progress Note: 01/14/2019 Subjective: The patient is feeling better. Started on antianxiety medications. Physical Examination: Vital Signs: Blood pressure 131/65, pulse of 74, afebrile. Chest: Clear to auscultation. Heart: S1, S2. Regular. Abdomen: Soft, nontender. Extremity: No edema. Laboratory Data: H and H 10.1/30.3. Sodium 141, potassium 4.2, bicarb 26, BUN 16, creatinine 1.6, c alcium 8.2, phosphorus 3.2. Current Medications: The patient on, include: 1.Albuterol. 2.Eliquis. 3.Calcium carbonate. 4.Amiodarone. 5.Amlodipine. 6.Metoprolol. 7.Lasix 20 daily. 8.Folic acid. 9.Ipratropium. 10.Pepcid. 11.Thiamine. Assessment And Plan: 1.Acute kidney injury secondary to calcium diuresis, recovered, resolved, back to his baseline. We will continue current Lasix dose. 2.Hypertension, controlled, optimal. We will continue to monitor the patient. 3.Hypercalcemia secondary to constipation, resolved. 4.Primary hyperparathyroidism ruled out. 5.Vitamin D deficiency with hypocalcemia, on supplement. We will monitor. 6.Chronic obstructive pulmonary disease exacerbation. Follow up with Pulmonary. 7.Deconditioning, continue PT/OT. LALITA/RYAN Voice ID: [id number] Report ID: [id number]
[2019-01-14] MEDS: ACETAMINOPHEN 500 MG TAB PO PRN (21:12)
[2019-01-15] MEDS: IPRATROPIUM BROM 0.5MG/2.5ML NEB SCH ×4 (02:00→20:00)
[2019-01-15 05:20] LABS: Albumin 2.5 g/dL (3.4-5.0); Potassium 4.2 mmol/L (3.5-5.1)
[2019-01-15] MEDS: LORAZEPAM 1 MG TABLET PO PRN ×3 (05:46→17:52)
[2019-01-15] MEDS: ARFORMOTEROL TARTRATE 15 MCG/2 ML VIAL.NEB NEB SCH ×2 (08:12→20:00)
[2019-01-15] MEDS: APIXABAN 5 MG TABLET PO SCH ×2 (09:04→21:37)
[2019-01-15] MEDS: AMIODARONE HCL 200 MG TAB PO SCH (09:04)
[2019-01-15] MEDS: FOLIC ACID 1 MG TABLET PO SCH (09:04)
[2019-01-15] MEDS: ENSURE ENLIVE 237 ML CAN PO SCH ×2 (09:04→21:00)
[2019-01-15] MEDS: AMLODIPINE 5 MG TAB PO SCH (09:05)
[2019-01-15] MEDS: FUROSEMIDE 20 MG TABLET PO SCH (09:05)
[2019-01-15] MEDS: FAMOTIDINE 20 MG TAB PO SCH (09:05)
[2019-01-15] MEDS: CALCIUM CARBONATE CHEW 500MG TAB PO SCH ×4 (09:06→21:37)
[2019-01-15] MEDS: VITAMIN D 1000 UNIT TAB PO SCH (09:06)
[2019-01-15] MEDS: METOPROLOL XL 50 MG TAB PO SCH ×2 (09:06→21:38)
[2019-01-15] MEDS: THIAMINE HCL 100 MG TABLET PO SCH (09:06)
--- NOTE | 2019-01-15 17:40 | P.PN ---
Subjective Date of Service: 01/15/19 Primary Care Provider: Dr. Wilkins(I am covering for him) Chief Complaint: COPD Subjective: No C/O voiced, Improving Patient seen and examined at bedside. No family at bedside. Chart reviewed and case discussed with nursing staff. Review of Systems 10-point ROS is otherwise unremarkable Physical Examination - Vital Signs Temperature: 97.7 F Blood Pressure: 138/70 Pulse: 75 Respirations: 18 Pulse Ox (%): 97 - Physical Exam General: Alert, In no apparent distress HEENT: Atraumatic, PERRLA, EOMI Neck: Supple, JVD not distended Respiratory: Clear to auscultation bilaterally, Normal air movement Cardiovascular: Regular rate/rhythm, Normal S1 S2 Gastrointestinal: Normal bowel sounds, No tenderness Musculoskeletal: No tenderness Integumentary: No rashes Neurological: Normal speech, Normal tone, Normal affect Lymphatics: No axilla or inguinal lymphadenopathy - Studies Medications List Reviewed: Yes Assessment And Plan - Plan Acute on chronic respiratory failure secondary COPD exacerbation with noted left pleural effusion complicated with history of lung cancer and prior lobectomy: Patient continues to do well. Patient on nasal cannula. Continue with physical therapy. Continue with COPD and oxygen. Await approval for SNF. Acute on chronic renal disease, stage III with hypernatremia: Atrial fibrillation: Continue with metoprolol and amiodarone. Patient on Lovenox. Cardiology has evaluated patient. No cardiac intervention is recommended at this time due to his renal disease. Hypertension: Continue medication. CAD: Patient likely with underlying CAD. Troponin elevated likely due to respiratory failure. No cardiac intervention is recommended at this time due to his renal disease. Will monitor closely. Anemia likely of chronic disease: Will continue to monitor hemoglobin. Disposition: We are pending [facility] facility placement. Patient continues to do well
[2019-01-15] MEDS ORDERED: ARFORMOTEROL TARTRATE 15 MCG/2 ML VIAL.NEB ONE (19:44)
[2019-01-16] MEDS: IPRATROPIUM BROM 0.5MG/2.5ML NEB SCH ×4 (01:35→19:54)
[2019-01-16] MEDS: LORAZEPAM 1 MG TABLET PO PRN ×3 (02:28→16:59)
[2019-01-16] MEDS: ARFORMOTEROL TARTRATE 15 MCG/2 ML VIAL.NEB NEB SCH ×2 (07:37→19:54)
[2019-01-16] MEDS: ACETAMINOPHEN 500 MG TAB PO PRN ×2 (10:13→16:57)
[2019-01-16] MEDS: THIAMINE HCL 100 MG TABLET PO SCH (10:23)
[2019-01-16] MEDS: AMIODARONE HCL 200 MG TAB PO SCH (10:23)
[2019-01-16] MEDS: VITAMIN D 1000 UNIT TAB PO SCH (10:23)
[2019-01-16] MEDS: CALCIUM CARBONATE CHEW 500MG TAB PO SCH ×4 (10:23→22:01)
[2019-01-16] MEDS: AMLODIPINE 5 MG TAB PO SCH (10:23)
[2019-01-16] MEDS: FOLIC ACID 1 MG TABLET PO SCH (10:24)
[2019-01-16] MEDS: METOPROLOL XL 50 MG TAB PO SCH ×2 (10:24→22:01)
[2019-01-16] MEDS: FUROSEMIDE 20 MG TABLET PO SCH (10:24)
[2019-01-16] MEDS: FAMOTIDINE 20 MG TAB PO SCH (10:24)
[2019-01-16] MEDS: APIXABAN 5 MG TABLET PO SCH ×2 (10:24→22:02)
[2019-01-16] MEDS: ENSURE ENLIVE 237 ML CAN PO SCH ×2 (10:25→22:02)
--- NOTE | 2019-01-16 13:57 | P.PN ---
Subjective Date of Service: 01/16/19 Primary Care Provider: Dr. Wilkins(I am covering for him) Chief Complaint: COPD Subjective: No C/O voiced Patient seen and examined at bedside. No family at bedside. Chart reviewed and case discussed with nursing staff. Review of Systems 10-point ROS is otherwise unremarkable Physical Examination - Vital Signs Temperature: 98.3 F Blood Pressure: 128/60 Pulse: 69 Respirations: 15 Pulse Ox (%): 97 - Physical Exam General: Alert, In no apparent distress, Oriented x3 HEENT: Atraumatic, PERRLA, EOMI Neck: Supple, JVD not distended Respiratory: Clear to auscultation bilaterally, Normal air movement Cardiovascular: Regular rate/rhythm, Normal S1 S2 Gastrointestinal: Normal bowel sounds, No tenderness Musculoskeletal: No tenderness Integumentary: No rashes Neurological: Normal speech, Normal tone, Normal affect Lymphatics: No axilla or inguinal lymphadenopathy - Studies Medications List Reviewed: Yes Assessment And Plan - Plan Acute on chronic respiratory failure secondary COPD exacerbation with noted left pleural effusion complicated with history of lung cancer and prior lobectomy: Patient continues to do well. Patient on nasal cannula. Continue with physical therapy. Continue with COPD and oxygen. Await approval for SNF. Acute on chronic renal disease, stage III with hypernatremia: Atrial fibrillation: Continue with metoprolol and amiodarone. Patient on Lovenox. Cardiology has evaluated patient. No cardiac intervention is recommended at this time due to his renal disease. Hypertension: Continue medication. CAD: Patient likely with underlying CAD. Troponin elevated likely due to respiratory failure. No cardiac intervention is recommended at this time due to his renal disease. Will monitor closely. Anemia likely of chronic disease: Will continue to monitor hemoglobin. Disposition: We are pending retirement facility placement. Patient continues to do well
--- NOTE | 2019-01-16 14:06 | PN ---
Date of Progress Note: 01/16/2019 Chief Complaint: Vegcp-ra-ejaenfn kidney injury in recovery phase. History Of Present Illness: The patient has multiple medical problems. He was found to have hyperca lcemia and developed acute kidney injury, nonoliguric. He did not require dialysis. The patient has congestive heart failure and is on Lasix. The patient has history of hypertension. Currently, he i s on amlodipine and MAXIMO inhibitor was taken off because of acute kidney injury. The patient develope d hypercalcemia secondary to hyperparathyroidism, which was of concern, but was rule out hyperparathy roidism. Calcium level stabilized. The patient was found to have severe vitamin D deficiency and cu rrmarge is on a vitamin D replacement. Calcium level is normalized. Review of Systems: Denies fever or chills. Physical Examination: Lungs: Clear to auscultation bilaterally. Heart: S1 and S2. Abdomen: Soft, benign. Extremities: Minimal edema. Laboratory Data: Sodium 141, potassium 4.2, chloride 104, CO2 29, BUN 13, creatinine 1.8, calcium 8. 5, phosphorus 4.0. Impression And Plan: 1.Utnpl-kr-qianpbx kidney injury with prerenal azotemia. BUN is gradually improving. Hypernatremia resolved. The patient was hydrated with IV fluids. The patient developed acute kidney injury compl icated by hypercalcemia and was treated for severe hypercalcemia. Calcium level was up to 14.5. Jareth al function improved and the patient is recovering from severe acute kidney injury. Creatinine was u p to 4.94. The patient has superimposed chronic kidney disease. Baseline creatinine 1.5 to 1.6. 2.Continue to advance diuretic for congestive heart failure. The patient currently is euvolemic. 3.Hypertension. Blood pressure controlled. Monitor blood pressure. Adjust medication for systolic blood pressure 120. 4.Vitamin D deficiency. Continue treatment. Monitor intact PTH and vitamin level. EB/MODL Voice ID: [id number] Report ID: [id number]
--- NOTE | 2019-01-16 16:21 | PN ---
Date of Progress Note: 01/15/2019 Chief Complaint: Chronic kidney disease stage 3. The patient has multiple medical problems. He is recovering from acute kidney injury. He developed acute kidney injury secondary to hypercalcemia and cardiorenal syndrome. Renal function is back to b aseline and urine output is well-maintained. The patient does not have fluid overload. He is curren tly on Lasix for management of congestive heart failure. Review of Systems: Denies fever or chills. Physical Examination: Lungs: Few wheezes. Heart: S1 and S2. ABDOMEN: Soft, benign, nontender. Extremities: Minimal edema. Laboratory Data: BUN 16, creatinine 1.6, calcium 8.2, sodium 141, potassium 4.2. Impression And Plan: 1.Chronic kidney disease. The patient is recovering from acute kidney injury. He does not require dialysis. The patient was found to have hypercalcemia, which was triggered by acute kidney injury. Currently, renal function is at baseline and calcium level is well controlled. The patient is recove ring from acute tubular necrosis secondary to prerenal azotemia related to polyuria triggered by hype rcalcemia. 2.Hypertension. Blood pressure controlled optimal. Continue current medication. 3.Congestive heart failure. Continue Lasix. 4.Vitamin D deficiency. The patient will continue supplementation. 5.Hypercalcemia secondary to volume contraction, resolved. The patient received treatment. ABILIO/RYAN Voice ID: [id number] Report ID: [id number]
[2019-01-17] MEDS: IPRATROPIUM BROM 0.5MG/2.5ML NEB SCH ×4 (01:52→20:00)
[2019-01-17] MEDS: LORAZEPAM 1 MG TABLET PO PRN ×3 (06:59→21:20)
[2019-01-17 07:12] LABS: Albumin 2.5 g/dL (3.4-5.0); Phosphorus 3.1 mg/dL (2.5-4.9); Potassium 4.4 mmol/L (3.5-5.1)
[2019-01-17] MEDS: ARFORMOTEROL TARTRATE 15 MCG/2 ML VIAL.NEB NEB SCH ×2 (08:35→20:00)
[2019-01-17] MEDS: AMLODIPINE 5 MG TAB PO SCH (08:53)
[2019-01-17] MEDS: THIAMINE HCL 100 MG TABLET PO SCH (08:53)
[2019-01-17] MEDS: APIXABAN 5 MG TABLET PO SCH ×2 (08:53→21:20)
[2019-01-17] MEDS: CALCIUM CARBONATE CHEW 500MG TAB PO SCH ×4 (08:53→21:20)
[2019-01-17] MEDS: AMIODARONE HCL 200 MG TAB PO SCH (08:53)
[2019-01-17] MEDS: FAMOTIDINE 20 MG TAB PO SCH (08:54)
[2019-01-17] MEDS: VITAMIN D 1000 UNIT TAB PO SCH (08:54)
[2019-01-17] MEDS: FOLIC ACID 1 MG TABLET PO SCH (08:54)
[2019-01-17] MEDS: METOPROLOL XL 50 MG TAB PO SCH ×2 (08:54→21:20)
[2019-01-17] MEDS: FUROSEMIDE 20 MG TABLET PO SCH (08:54)
[2019-01-17] MEDS: ENSURE ENLIVE 237 ML CAN PO SCH ×2 (08:58→21:22)
--- NOTE | 2019-01-17 15:37 | P.PN ---
Subjective Date of Service: 01/17/19 Primary Care Provider: Dr. Wilkins(I am covering for him) Chief Complaint: COPD Subjective: No C/O voiced Patient seen and examined at bedside. No family at bedside. Chart reviewed and case discussed with nursing staff. Review of Systems 10-point ROS is otherwise unremarkable Physical Examination - Vital Signs Temperature: 98.2 F Blood Pressure: 128/61 Pulse: 82 Respirations: 16 Pulse Ox (%): 96 - Studies Medications List Reviewed: Yes Assessment And Plan - Plan Acute on chronic respiratory failure secondary COPD exacerbation with noted left pleural effusion complicated with history of lung cancer and prior lobectomy: Patient continues to do well. Patient on nasal cannula. Continue with physical therapy. Continue with COPD and oxygen. Await approval for SNF. Acute on chronic renal disease, stage III with hypernatremia: Atrial fibrillation: Continue with metoprolol and amiodarone. Patient on Lovenox. Cardiology has evaluated patient. No cardiac intervention is recommended at this time due to his renal disease. Hypertension: Continue medication. CAD: Patient likely with underlying CAD. Troponin elevated likely due to respiratory failure. No cardiac intervention is recommended at this time due to his renal disease. Will monitor closely. Anemia likely of chronic disease: Will continue to monitor hemoglobin. Disposition: We are pending custodial facility placement. Patient continues to do well
[2019-01-17] MEDS ORDERED: ARFORMOTEROL TARTRATE 15 MCG/2 ML VIAL.NEB ONE (20:11)
[2019-01-18] MEDS: IPRATROPIUM BROM 0.5MG/2.5ML NEB SCH ×4 (01:30→20:00)
--- NOTE | 2019-01-18 02:26 | PN ---
Date of Progress Note: 01/17/2019 Chief Complaint: Eyxht-nw-nboriro kidney injury in recovery phase. History Of Present Illness: The patient has multiple medical problems. He was found to have hyperca lcemia and developed acute kidney injury, and he is nonoliguric in setting of hypercalcemia and polyu jenniffer related to elevated calcium. The patient has congestive heart failure and has been treated with Lasix for volume control and to provide management for congestive heart failure. Review of Systems: The patient denies fever, chills. Physical Examination: Lungs: Clear to auscultation bilaterally. Heart: S1, S2. Abdomen: Soft, benign. Extremities: Minimal edema. Impression And Plan: 1.Ouedy-ol-rgwsxus kidney with prerenal azotemia. Renal function is improving. BUN is 13, creatini ne 1.8. 2.Hypernatremia resolved. Continue adequate hydration by mouth. IV fluids as needed. 3.Calcium level was up to 14.5, with treatment calcium level stabilized and is within normal range. 4.Continue to advance diuretic for congestive heart failure and anasarca control. The patient will have Lasix as needed. 5.Vitamin D deficiency. Continue treatment with vitamin D replacement. Monitor phosphorus level. EB/MODL Voice ID: [id number] Report ID: [id number]
[2019-01-18] MEDS: LORAZEPAM 1 MG TABLET PO PRN ×2 (04:01→18:38)
[2019-01-18] MEDS: ARFORMOTEROL TARTRATE 15 MCG/2 ML VIAL.NEB NEB SCH ×2 (08:36→20:00)
[2019-01-18] MEDS: APIXABAN 5 MG TABLET PO SCH (09:18)
[2019-01-18] MEDS: THIAMINE HCL 100 MG TABLET PO SCH (09:18)
[2019-01-18] MEDS: FOLIC ACID 1 MG TABLET PO SCH (09:18)
[2019-01-18] MEDS: FAMOTIDINE 20 MG TAB PO SCH (09:18)
[2019-01-18] MEDS: FUROSEMIDE 20 MG TABLET PO SCH (09:18)
[2019-01-18] MEDS: AMLODIPINE 5 MG TAB PO SCH (09:19)
[2019-01-18] MEDS: AMIODARONE HCL 200 MG TAB PO SCH (09:19)
[2019-01-18] MEDS: VITAMIN D 1000 UNIT TAB PO SCH (09:19)
[2019-01-18] MEDS: CALCIUM CARBONATE CHEW 500MG TAB PO SCH ×4 (09:19→20:34)
[2019-01-18] MEDS: ENSURE ENLIVE 237 ML CAN PO SCH ×2 (09:20→20:41)
[2019-01-18] MEDS: METOPROLOL XL 50 MG TAB PO SCH ×2 (09:20→20:34)
--- NOTE | 2019-01-18 12:32 | P.PN ---
Subjective Date of Service: 01/18/19 Primary Care Provider: Dr. Wilkins(I am covering for him) Chief Complaint: COPD Patient is stable he feels no better awaiting rehab placement Review of Systems General: Weakness Respiratory: Shortness of Breath Physical Examination - Vital Signs Temperature: 97.1 F Blood Pressure: 131/60 Pulse: 84 Respirations: 20 Pulse Ox (%): 94 - Physical Exam General: Alert, In no apparent distress, Oriented x3 Respiratory: Clear to auscultation bilaterally, Diminished Cardiovascular: No edema - Studies Medications List Reviewed: Yes Assessment & Plan - Problems (Diagnosis) (1) COPD exacerbation Onset Date: 04/27/18 Current Visit: No Status: Acute Plan: Patient admitted with COPD exacerbation he has terminal COPD is back to his baseline awaiting rehab placement possible discharge does not qualify for noninvasive ventilation or BiPAP ovoid Lasix is renal function is stable to ovoid steroids patient is not in AFib will check with Cardiology regarding anticoagulation and the use of amiodarone at the time of discharge I will also stop his theophylline Physician Review Additional Text: Impression: Acute on chronic respiratory failure secondary COPD exacerbation with noted left pleural effusion complicated with history of lung cancer and prior lobectomy Acute on chronic renal disease, stage III with hypernatremia Atrial fibrillation Hypertension CAD Anemia likely of chronic disease Plan: Acute on chronic respiratory failure secondary COPD exacerbation with noted left pleural effusion complicated with history of lung cancer and prior lobectomy: Patient continues to do well. Patient on nasal cannula. Continue with physical therapy. Continue with COPD and oxygen. Await approval for SNF. I am covering for Dr. Wilkins. He will take over tomorrow. Acute on chronic renal disease, stage III with hypernatremia: This continues to improve. IV fluids continued to be adjusted by Nephrology. Encourage oral intake. Atrial fibrillation: Continue with metoprolol and amiodarone. Patient on Lovenox. Cardiology has evaluated patient. No cardiac intervention is recommended at this time due to his renal disease. Hypertension: Continue medication. CAD: Patient likely with underlying CAD. Troponin elevated likely due to respiratory failure. No cardiac intervention is recommended at this time due to his renal disease. Will monitor closely. Anemia likely of chronic disease: Will continue to monitor hemoglobin.
[2019-01-18] MEDS ORDERED: ALBUTEROL 2.5 MG/3 ML NEB SOL NEB PRN (13:07)
--- NOTE | 2019-01-18 16:16 | P.PN ---
Subjective Date of Service: 01/18/19 Primary Care Provider: Dr. Wilkins(I am covering for him) Chief Complaint: COPD Subjective: No new changes Patient seen and examined at bedside. No family at bedside. Chart reviewed and case discussed with nursing staff. Review of Systems 10-point ROS is otherwise unremarkable Physical Examination - Vital Signs Temperature: 97.1 F Blood Pressure: 131/60 Pulse: 84 Respirations: 20 Pulse Ox (%): 94 - Physical Exam General: Alert, In no apparent distress HEENT: Atraumatic, PERRLA, EOMI Neck: Supple, JVD not distended Respiratory: Clear to auscultation bilaterally, Normal air movement Cardiovascular: Regular rate/rhythm, Normal S1 S2 Gastrointestinal: Normal bowel sounds, No tenderness Musculoskeletal: No tenderness Integumentary: No rashes Neurological: Normal speech, Normal tone, Normal affect Lymphatics: No axilla or inguinal lymphadenopathy - Studies Medications List Reviewed: Yes Assessment And Plan - Plan Acute on chronic respiratory failure secondary COPD exacerbation with noted left pleural effusion complicated with history of lung cancer and prior lobectomy: Patient continues to do well. Patient on nasal cannula. Continue with physical therapy. Continue with COPD and oxygen. Await approval for SNF. Acute on chronic renal disease, stage III with hypernatremia: Atrial fibrillation: Continue with metoprolol and amiodarone. Patient on Lovenox. Cardiology has evaluated patient. No cardiac intervention is recommended at this time due to his renal disease. Hypertension: Continue medication. CAD: Patient likely with underlying CAD. Troponin elevated likely due to respiratory failure. No cardiac intervention is recommended at this time due to his renal disease. Will monitor closely. Anemia likely of chronic disease: Will continue to monitor hemoglobin. Disposition: We are pending [facility] facility placement. Patient continues to do well
[2019-01-19] MEDS: IPRATROPIUM BROM 0.5MG/2.5ML NEB SCH ×4 (02:00→19:46)
--- NOTE | 2019-01-19 04:10 | PN ---
Date of Progress Note: 01/18/2019 Chief Complaint: Chronic kidney disease stage 3, history of hypercalcemia. Subjective: The patient presented to the hospital because of generalized weakness. He was found to have hypercalcemia. He developed acute kidney injury, nonoliguric, in the setting of hypercalcemia a nd polyuria related to elevated calcium. The patient has history of multiple medical problems including chronic kidney disease stage 3, baseli ne creatinine 1.7 to 1.8. Review of Systems: Denies fever, chills. Physical Examination: Lungs: Clear to auscultation bilaterally. Heart: S1, S2. Abdomen: Soft, benign. Extremities: No edema. Impression And Plan: 1.Aigkg-fe-jabbisv kidney injury with prerenal azotemia. Renal function is improving. Continue to monitor renal panel and fluid balance. 2.Hypernatremia, resolved. The patient completed IV fluids. Continue p.o. hydration. 3.Hypercalcemia. Primarily, calcium level was up to 14.5 and calcium level stabilized and remains w ithin normal limits. 4.Vitamin D deficiency. Continue treatment and monitor phosphorus level. ABILIO/MODL Voice ID: [id number] Report ID: [id number]
[2019-01-19] MEDS: LORAZEPAM 1 MG TABLET PO PRN ×3 (05:19→20:42)
[2019-01-19 05:41] LABS: Albumin 2.7 g/dL (3.4-5.0); Phosphorus 3.1 mg/dL (2.5-4.9); Potassium 3.9 mmol/L (3.5-5.1)
[2019-01-19] MEDS: ARFORMOTEROL TARTRATE 15 MCG/2 ML VIAL.NEB NEB SCH ×2 (08:50→19:46)
[2019-01-19] MEDS: AMLODIPINE 5 MG TAB PO SCH (09:17)
[2019-01-19] MEDS: FAMOTIDINE 20 MG TAB PO SCH (09:17)
[2019-01-19] MEDS: CALCIUM CARBONATE CHEW 500MG TAB PO SCH ×4 (09:17→20:41)
[2019-01-19] MEDS: AMIODARONE HCL 200 MG TAB PO SCH (09:18)
[2019-01-19] MEDS: FOLIC ACID 1 MG TABLET PO SCH (09:18)
[2019-01-19] MEDS: FUROSEMIDE 20 MG TABLET PO SCH (09:18)
[2019-01-19] MEDS: ENSURE ENLIVE 237 ML CAN PO SCH ×2 (09:18→20:41)
[2019-01-19] MEDS: THIAMINE HCL 100 MG TABLET PO SCH ×2 (09:18→09:19)
[2019-01-19] MEDS: METOPROLOL XL 50 MG TAB PO SCH ×2 (09:18→20:42)
[2019-01-19] MEDS: VITAMIN D 1000 UNIT TAB PO SCH ×2 (09:18→13:24)
[2019-01-19] MEDS: ACETAMINOPHEN 500 MG TAB PO PRN (11:14)
--- NOTE | 2019-01-19 12:53 | P.PN ---
Subjective Date of Service: 01/20/19 Primary Care Provider: Dr. Wilkins(I am covering for him) Chief Complaint: COPD Subjective: No new changes still wheezing Cr stable have pedal edema , will cont current dose of lasix pending discharge to SNF on oxygen Physical Examination - Vital Signs Temperature: 97.8 F Blood Pressure: 128/67 Pulse: 75 Respirations: 20 Pulse Ox (%): 98 - Physical Exam General: Oriented x3 HEENT: Atraumatic Neck: Supple, Without JVD or thyroid abnormality Respiratory: Diminished Cardiovascular: Regular rate/rhythm, Normal S1 S2, No rubs, No murmurs, Edema Gastrointestinal: Normal bowel sounds, Soft and benign - Studies Medications List Reviewed: Yes Assessment And Plan - Current Problems (Diagnosis) (1) SHARITA (acute kidney injury) Current Visit: Yes Status: Acute (2) Hypercalcemia Current Visit: Yes Status: Acute (3) Atrial fibrillation Current Visit: No Status: Chronic Qualifiers: Atrial fibrillation type: chronic Qualified Code(s): I48.2 - Chronic atrial fibrillation - Plan Assessment And Plan: SHARITA on CKD resolved baseline ~2.0 uS: no hydro hypernatremia resolved COPD with HX of lung Ca pt with advanced COPD on Oxygen hypocalcemia/hypercalcemia resolved Afib on metoprolol and amiodarone Anemia stable
[2019-01-20] MEDS: IPRATROPIUM BROM 0.5MG/2.5ML NEB SCH ×4 (01:53→20:00)
[2019-01-20] MEDS: LORAZEPAM 1 MG TABLET PO PRN ×2 (05:27→18:51)
[2019-01-20] MEDS: ARFORMOTEROL TARTRATE 15 MCG/2 ML VIAL.NEB NEB SCH ×2 (07:50→20:00)
[2019-01-20] MEDS: METOPROLOL XL 50 MG TAB PO SCH ×2 (09:00→21:25)
[2019-01-20] MEDS: ENSURE ENLIVE 237 ML CAN PO SCH ×2 (09:45→21:29)
[2019-01-20] MEDS: FOLIC ACID 1 MG TABLET PO SCH (09:53)
[2019-01-20] MEDS: CALCIUM CARBONATE CHEW 500MG TAB PO SCH ×4 (09:54→21:24)
[2019-01-20] MEDS: THIAMINE HCL 100 MG TABLET PO SCH (09:54)
[2019-01-20] MEDS: VITAMIN D 1000 UNIT TAB PO SCH (09:54)
[2019-01-20] MEDS: FUROSEMIDE 20 MG TABLET PO SCH (09:54)
[2019-01-20] MEDS: FAMOTIDINE 20 MG TAB PO SCH (09:55)
[2019-01-20] MEDS: AMIODARONE HCL 200 MG TAB PO SCH (09:55)
[2019-01-20] MEDS: AMLODIPINE 5 MG TAB PO SCH (09:55)
[2019-01-20] MEDS: ACETAMINOPHEN 500 MG TAB PO PRN (09:56)
--- NOTE | 2019-01-20 16:28 | PN ---
Date of Progress Note: 01/20/2019 Subjective: The patient was admitted with COPD exacerbation, acute kidney injury, on the recovery. Physical Examination: Vital Signs: Blood pressure 117/58, pulse of 60. Chest: Clear to auscultation. HEART: S1-S2, regular. Abdomen: Soft, nontender. Extremities: No edema. Laboratory Data: H and H 10.30.3. Sodium 139, potassium 3.9, bicarb 28, BUN 15, creatinine 1.9. Current Medications: The patient on its include, 1.Breathing treatment. 2.Calcium carbonate. 3.Lorazepam. 4.Amlodipine. 5.Metoprolol. 6.Lasix 20 mg. 7.Ipratropium. 8.Folic acid. 9.Pepcid. 10.Cholecalciferol. Assessment And Plan: 1.Chronic kidney disease, stable. We will continue current treatment. 2.Hypertension, controlled optimal, continue current treatment. 3.Chronic obstructive pulmonary disease, continue follow up with primary. 4.Hypercalcemia, resolved. 5.Primary hyperparathyroidism, ruled out. 6.Vitamin D deficiency. Continue supplement. HARPAL Voice ID: [id number] Report ID: [id number]
--- NOTE | 2019-01-20 18:26 | PN ---
The patient continues at baseline. He seems to be getting somewhat stronger as far as his therapy is concerned; however, he is not yet back to baseline physically. We are awaiting insurance approval f or SNF placement. Much time was spent in discussion that this is preferred. However, if it is not f easible due to insurance purposes, the patient was advised to utilize the home health benefits, which he has not done in the past, and this will be considered depending on his situation. HR/MODL Voice ID: [id number] Report ID: [id number]
--- NOTE | 2019-01-20 20:58 | PN ---
Date of Progress Note: 01/20/2019 Status quo. As far as his pulmonary is concerned, he still states he feels short of breath with mini mal exertion. I feel, however he probably is as close to baseline as he is going to get; discussion with him was made as far as home with home health as we still have no word on SNF acceptance. HR/MODL Voice ID: [id number] Report ID: [id number]
[2019-01-21] MEDS: LORAZEPAM 1 MG TABLET PO PRN ×2 (01:59→09:48)
[2019-01-21] MEDS: IPRATROPIUM BROM 0.5MG/2.5ML NEB SCH ×3 (02:00→13:50)
[2019-01-21 06:14] LABS: Albumin 2.5 g/dL (3.4-5.0); Phosphorus 3.1 mg/dL (2.5-4.9)
[2019-01-21] MEDS: ARFORMOTEROL TARTRATE 15 MCG/2 ML VIAL.NEB NEB SCH (07:35)
[2019-01-21] MEDS: AMLODIPINE 5 MG TAB PO SCH (08:54)
[2019-01-21] MEDS: METOPROLOL XL 50 MG TAB PO SCH (08:54)
[2019-01-21] MEDS: FOLIC ACID 1 MG TABLET PO SCH (08:55)
[2019-01-21] MEDS: THIAMINE HCL 100 MG TABLET PO SCH (08:55)
[2019-01-21] MEDS: FAMOTIDINE 20 MG TAB PO SCH (08:55)
[2019-01-21] MEDS: FUROSEMIDE 20 MG TABLET PO SCH (08:55)
[2019-01-21] MEDS: CALCIUM CARBONATE CHEW 500MG TAB PO SCH ×3 (08:55→18:17)
[2019-01-21] MEDS: VITAMIN D 1000 UNIT TAB PO SCH (08:56)
[2019-01-21] MEDS: ENSURE ENLIVE 237 ML CAN PO SCH (08:56)
[2019-01-21] MEDS: AMIODARONE HCL 200 MG TAB PO SCH (08:56)
[2019-01-21] MEDS: ACETAMINOPHEN 500 MG TAB PO PRN (09:45)
[2019-01-21 10:25] VITALS: O2SAT 100
[2019-01-21 16:35] VITALS: BP 124/61; TEMP 97.7
--- NOTE | 2019-01-21 18:50 | P.PN ---
Subjective Date of Service: 01/22/19 Primary Care Provider: Dr. Wilkins(I am covering for him) Chief Complaint: COPD Subjective: Improving feels better Cr stable have pedal edema , will cont current dose of lasix pending discharge to SNF on oxygen Physical Examination - Vital Signs Temperature: 97.7 F Blood Pressure: 124/61 Pulse: 65 Respirations: 16 Pulse Ox (%): 98 - Physical Exam General: In no apparent distress, Oriented x3 HEENT: Atraumatic Neck: Supple, Without JVD or thyroid abnormality Respiratory: Diminished Cardiovascular: Regular rate/rhythm, Normal S1 S2, Edema Gastrointestinal: Normal bowel sounds, Soft and benign - Studies Medications List Reviewed: Yes Assessment And Plan - Current Problems (Diagnosis) (1) SHARITA (acute kidney injury) Status: Acute (2) Hypercalcemia Status: Acute (3) Atrial fibrillation Status: Chronic Qualifiers: Atrial fibrillation type: chronic Qualified Code(s): I48.2 - Chronic atrial fibrillation - Plan Assessment And Plan: SHARITA on CKD resolved baseline ~2.0 uS: no hydro hypernatremia resolved COPD with HX of lung Ca pt with advanced COPD on Oxygen hypocalcemia/hypercalcemia resolved Afib on metoprolol and amiodarone Anemia stable
== END 2019-01-21 19:30 | disposition home health service (06) | DRG 208 ==
LOC: ER 17:29 → ERHOLD 22:52 → 4TH 23:09 → 3RD-ICU 01-05 02:14 → 2ND 01-08 09:30
PROVIDERS: ADMIT Hospitalist; ATTEND Family Medicine
PROC: 5A09357 Assistance with Respiratory Ventilation, Less than 24 Consecutive Hours, Continuous Positive Airway Pressure (ICD-10-PCS; 2019-01-02)
PROC: 5A1945Z Respiratory Ventilation, 24-96 Consecutive Hours (ICD-10-PCS; principal; 2019-01-05)
PROC: 0BH17EZ Insertion of Endotracheal Airway into Trachea, Via Natural or Artificial Opening (ICD-10-PCS; 2019-01-05)
DX: J96.20 Acute and chronic respiratory failure, unspecified whether with hypoxia or hypercapnia (principal); N17.0 Acute kidney failure with tubular necrosis; N17.9 Acute kidney failure, unspecified; J44.1 Chronic obstructive pulmonary disease with (acute) exacerbation; C34.90 Malignant neoplasm of unspecified part of unspecified bronchus or lung; E87.0 Hyperosmolality and hypernatremia; J90 Pleural effusion, not elsewhere classified; I13.0 Hypertensive heart and chronic kidney disease with heart failure and stage 1 through stage 4 chronic kidney disease, or unspecified chronic kidney disease; I48.2 Chronic atrial fibrillation; N18.3 Chronic kidney disease, stage 3 (moderate); E86.0 Dehydration; E87.6 Hypokalemia; E83.39 Other disorders of phosphorus metabolism; R61 Generalized hyperhidrosis; R06.00 Dyspnea, unspecified; D63.1 Anemia in chronic kidney disease; I25.10 Atherosclerotic heart disease of native coronary artery without angina pectoris; E55.9 Vitamin D deficiency, unspecified; I50.9 Heart failure, unspecified; K59.00 Constipation, unspecified; E21.0 Primary hyperparathyroidism; Z79.01 Long term (current) use of anticoagulants; Z87.891 Personal history of nicotine dependence
CPT/HCPCS: 36415; 70450; 71045; 71046; 71250; 74018; 74019; 74176; 76536; 76770; 78070; 78582; 80048; 80053; 80069; 80076; 80202; 81003; 81015; 82306; 82550; 82553; 82565; 82607; 82652; 82746; 82805; 83735; 83880; 83970; 84100; 84436; 84439; 84443; 84480; 84481; 84484; 84550; 85025; 85610; 87040; 87070; 87205; 93005; 93306; 93970; 94002; 94003; 94640; 94660; 94760; 96361; 96365; 96366; 97116; 97163; 97166; 97530; 99285; A9500; A9540; A9558; J0171; J0330; J0610; J0692; J1100; J1630; J1650; J1940; J2001; J2250; J2270; J2405; J2430; J2704; J2920; J3010; J3411; J3475; J7030; J7512; J7605

== ENCOUNTER 2019-11-12 22:13 | Emergency (ER) | payer BC, OTHER ==
[2019-11-12] MEDS ORDERED: NA CHLORIDE 0.9% 2,000 ML ONE (23:09)
[2019-11-12] MEDS ORDERED: ACETAMINOPHEN 500 MG TAB ONE (23:09)
[2019-11-12 23:21] LABS: Absolute Lymphocytes (CBC) 0.2 K/uL (0.7-4.9); Basophils % 0.4 % (0-1.3); Hematocrit 34.7 % (39.6-49.0); Lymphocytes % 3.9 % (15.3-44.8); MPV 8.4 fL (7.6-11.3); RBC Red Blood Cell Count 3.95 M/uL (4.33-5.43)
[2019-11-12 23:26] LABS: Protime INR 1.07
[2019-11-12 23:30] LABS: Urine Blood NEGATIVE (NEG); Urine Glucose NEGATIVE (NEG); Urine Protein 1+ (NEG); Urine pH 5.5 (5.0-7.0)
[2019-11-12] MEDS ORDERED: LEVALBUTEROL 1.25 MG/3 ML NEB ONE (23:37)
[2019-11-12 23:48] LABS: ALT/SGPT 41 U/L (12-78); AST/SGOT 33 U/L (15-37); Albumin 3.8 g/dL (3.4-5.0); Alkaline Phosphatase 65 U/L (45-117); BUN Blood Urea Nitrogen 25 mg/dL (7-18); Bicarbonate 24 mmol/L (21-32); Bilirubin Direct < 0.1 mg/dL (0-0.2); Bilirubin Total 0.3 mg/dL (0.2-1.0); CKMB Creatine Kinase MB 1.2 ng/mL (0.3-3.6); Creatine Phosphokinase 252 U/L (39-308); Glucose Level 92 mg/dL (74-106); Lipase 99 U/L (73-393); Potassium 4.6 mmol/L (3.5-5.1); Protein, Total 7.8 g/dL (6.4-8.2); Sodium Level 136 mmol/L (136-145); Troponin (Emerg Dept Use Only) < 0.02 ng/mL (0.0-0.045)
[2019-11-12] MEDS ORDERED: CEFTRIAXONE/SWI 1gm 1 GM/10 ML SYR ONE (23:56)
[2019-11-13 00:20] LABS: Urine Amorphous Sediment TRACE /HPF (NONE SEEN); Urine Bacteria <20 /HPF (NONE SEEN); Urine Culture Reflex Order NOT NEEDED; Urine Mucus 1+ /HPF (NONE SEEN); Urine RBC <5 /HPF (NONE SEEN)
[2019-11-13] MEDS ORDERED: LORazepam 2 MG/ML VIAL ONE (01:12)
[2019-11-13] MEDS ORDERED: AZITHROMYCIN 500 MG INJ IVPB ONE (01:12)
[2019-11-13] MEDS ORDERED: NA CHLORIDE 0.9% 250 ML ONE (01:13)
--- NOTE | 2019-11-13 01:51 | EDPHYS ---
Physician Documentation [facility] Name: Angelo Narvaez Age: 64 yrs Sex: Male : 1955 Arrival Date: 11/12/2019 Time: 22:17 Bed 23 Private MD: ED Physician Dallas Ansari HPI: 11/12 23:06 This 64 yrs old Male presents to ER via Ambulatory with complaints of Flu pm1 Symptoms. 23:06 The patient or guardian reports cough, with productive sputum, flu symptoms, myalgias. pm1 Onset: The symptoms/episode began/occurred 2 week(s) ago, and became worse today. Severity of symptoms: in the emergency department the symptoms are actually worse, shortness of breath is present in the emergency department a " 0" out of "10". Modifying factors: The symptoms are alleviated by nebulizer treatment, the symptoms are aggravated by nothing. Associated signs and symptoms: Pertinent positives: fever, Pertinent negatives: chest pain, nausea, sore throat, vomiting. Patient with history of COPD and lung cancer in remission. Patient with chronic cough with increased cough for the past two weeks. Today patient with flu-like symptoms, fever and increased shortness of breath. Historical: - Allergies: 22:47 Prednisone; mg2 - PMHx: 22:47 Atrial Fib; COPD; HTN; Lung Cancer; Pneumothorax; mg2 - PSHx: 22:47 Appendectomy; Lobectomy; mg2 - Immunization history:: Flu vaccine is up to date. - Social history:: Smoking status: Patient/guardian denies using tobacco. - Ebola Screening: : No symptoms or risks identified at this time. ROS: 23:06 Eyes: Negative for injury, pain, redness, and discharge, ENT: Negative for injury, pm1 pain, and discharge, Neck: Negative for injury, pain, and swelling, Cardiovascular: Negative for chest pain, palpitations, and edema. 23:06 Abdomen/GI: Negative for abdominal pain, nausea, vomiting, diarrhea, and constipation, Back: Negative for injury and pain, : Negative for injury, bleeding, discharge, and swelling, MS/Extremity: Negative for injury and deformity, Skin: Negative for injury, rash, and discoloration, Neuro: Negative for headache, weakness, numbness, tingling, and seizure. 23:06 Constitutional: Positive for body aches, fever. 23:06 Respiratory: Positive for cough, shortness of breath. Exam: 23:06 Constitutional: This is a well developed, well nourished patient who is awake, alert, pm1 and in no acute distress. Head/Face: Normocephalic, atraumatic. ENT: Nares patent. No nasal discharge, no septal abnormalities noted. Tympanic membranes are normal and external auditory canals are clear. Oropharynx with no redness, swelling, or masses, exudates, or evidence of obstruction, uvula midline. Mucous membranes moist. Neck: Trachea midline, no thyromegaly or masses palpated, and no cervical lymphadenopathy. Supple, full range of motion without nuchal rigidity, or vertebral point tenderness. No Meningismus. Chest/axilla: Normal chest wall appearance and motion. Nontender with no deformity. No lesions are appreciated. Cardiovascular: Regular rate and rhythm with a normal S1 and S2. No gallops, murmurs, or rubs. Normal PMI, no JVD. No pulse deficits. 23:06 Abdomen/GI: Soft, non-tender, with normal bowel sounds. No distension or tympany. No guarding or rebound. No evidence of tenderness throughout. Back: No spinal tenderness. No costovertebral tenderness. Full range of motion. Skin: Warm, dry with normal turgor. Normal color with no rashes, no lesions, and no evidence of cellulitis. MS/ Extremity: Pulses equal, no cyanosis. Neurovascular intact. Full, normal range of motion. 23:06 Respiratory: the patient does not display signs of respiratory distress, Respirations: normal, Breath sounds: wheezing: that is mild, is heard diffusely. 23:06 Neuro: Orientation: is normal, Motor: is normal, moves all fours. Vital Signs: 22:45 BP 173 / 100; Pulse 107; Resp 26; Temp 102.8; Pulse Ox 95% on R/A; Weight 59.87 kg; mg2 Height 5 ft. 5 in. (165.10 cm); 22:50 BP 185 / 87; Pulse 114; Resp 18; Temp 99.6; Pulse Ox 96% ; cr4 23:02 BP 169 / 87; Pulse 107; cr4 23:29 BP 169 / 87; Pulse 110; Resp 21; Pulse Ox 96% on R/A; jp3 11/13 01:04 BP 161 / 80; Pulse 115; Resp 24; Temp 98.8; Pulse Ox 92% ; Pain 0/10; cr4 01:45 BP 140 / 90; Pulse 115; Resp 25; Pulse Ox 88% ; cr4 02:05 Pulse Ox 96% on 2 lpm NC; cr4 02:40 BP 128 / 74; Pulse 107; Resp 28; Temp 99.2; Pulse Ox 96% 2 lpm ; Pain 0/10; cr4 11/12 22:45 Body Mass Index 21.96 (59.87 kg, 165.10 cm) mg2 MDM: 11/12 22:52 Patient medically screened. pm1 11/13 00:06 ED course: Baseline kidney fxn. 10/06/2019 BUN 35 and Cr 2.26. Today 25 and 2.26 pm1 respectiely. 01:49 Data reviewed: vital signs. Data interpreted: Pulse oximetry: on room air is 96 %. pm1 Interpretation: normal. 01:49 Counseling: I had a detailed discussion with the patient and/or guardian regarding: the pm1 historical points, exam findings, and any diagnostic results supporting the discharge/admit diagnosis, lab results, radiology results, the need for outpatient follow up, to return to the emergency department if symptoms worsen or persist or if there are any questions or concerns that arise at home. 11/12 22:57 Order name: Flu 11/12 22:57 Order name: Urine Culture 11/12 22:57 Order name: Sputum Culture 11/12 22:57 Order name: Basic Metabolic Panel; Complete Time: 23:49 pm11/12 22:57 Order name: Blood Culture Adult (2) 11/12 22:57 Order name: CBC with Diff; Complete Time: 23:41 pm11/12 22:57 Order name: Ckmb; Complete Time: 23:49 pm11/12 22:57 Order name: CPK; Complete Time: 23:49 pm11/12 22:57 Order name: Lactate; Complete Time: 23:49 pm11/12 22:57 Order name: LFT's; Complete Time: 23:49 pm1 11/12 22:57 Order name: Lipase; Complete Time: 23:49 pm11/12 22:57 Order name: Procalcitonin; Complete Time: 00:17 pm1 11/12 22:57 Order name: Protime (+inr); Complete Time: 00:04 pm1 11/12 22:57 Order name: Ptt, Activated; Complete Time: 00:04 pm1 11/12 22:57 Order name: Troponin (emerg Dept Use Only); Complete Time: 23:49 pm1 11/12 22:57 Order name: Urine Microscopic Only; Complete Time: 00:23 pm1 11/12 22:57 Order name: Chest Single View XRAY pm1 11/12 22:57 Order name: Accucheck; Complete Time: 23:12 pm1 11/12 22:58 Order name: Strep; Complete Time: 23:41 pm1 11/12 22:59 Order name: Influenza Screen (A ; Complete Time: 23:41 EDMS 11/12 23:27 Order name: Urine Dipstick--Ancillary (enter results); Complete Time: 23:41 2 11/12 23:29 Order name: Glucose, Ancillary Testing; Complete Time: 23:41 EDMS 11/12 23:39 Order name: Throat Culture EDMS 11/12 22:57 Order name: Cardiac monitoring; Complete Time: 23:12 pm1 11/12 22:57 Order name: EKG - Nurse/Tech; Complete Time: 23:12 pm1 11/12 22:57 Order name: IV Saline Lock - Large Bore; Complete Time: 23:12 pm1 11/12 22:57 Order name: Labs collected and sent; Complete Time: 23:12 pm1 11/12 22:57 Order name: O2 Per Protocol; Complete Time: 23:12 pm1 11/12 22:57 Order name: O2 Sat Monitoring; Complete Time: 23:12 pm1 11/12 22:57 Order name: Urine Dipstick-Ancillary (obtain specimen); Complete Time: 23:12 pm1 Administered Medications: 11/12 23:20 Drug: NS 0.9% (30 ml/kg) 30 ml/kg {Note: 1,800ml.} Route: IV; Rate: bolus; Site: right cr4 antecubital; 11/13 00:50 Follow up: IV Status: Completed infusion; IV Intake: 1800ml cr4 11/12 23:38 Drug: Xopenex 2.5 mg Route: Inhalation; [facility] 11/13 00:30 Follow up: Response: No adverse reaction; Wheezing diminished cr4 11/12 23:50 Drug: Rocephin 1 grams Route: IV; Rate: calculated rate; Site: right antecubital; mg2 11/13 00:50 Follow up: Response: No adverse reaction cr4 01:02 Follow up: Response: No adverse reaction cr4 01:02 CANCELLED (Physician Discretion): Ativan 1 mg IVP once pm1 01:03 Not Given (temp 99.6 and 98.8 \\T\\ 0100 Wisam MARTINEZ aware): Tylenol 1000 mg PO once cr4 01:15 Drug: AZITHromycin 500 mg Route: IVPB; Infused Over: 1 hrs; Site: right antecubital; cr4 02:40 Follow up: Response: No adverse reaction; IV Status: Completed infusion; IV Intake: cr4 250ml 01:15 Drug: Ativan 0.5 mg Route: IVP; Site: right antecubital; cr4 02:15 Follow up: Response: Pain is decreased cr4 Disposition: 04:21 Co-signature as Attending Physician, Dallas Ansari MD I agree with the assessment and kdr plan of care. Disposition: 11/13/19 01:50 Discharged to Home. Impression: Chronic obstructive pulmonary disease with (acute) exacerbation. - Condition is Stable. - Discharge Instructions: Chronic Obstructive Pulmonary Disease Exacerbation. - Prescriptions for Zithromax Z- [place] 250 mg Oral Tablet - take 1 tablet by ORAL route as directed for 5 days Day 1 - take two (2) tablets one time. Day 2, 3, 4 , 5 take one (1) tablet once daily.; 6 tablet. Guaifenesin AC 10- 100 mg/5 mL Oral Liquid - take 10 milliliter by ORAL route every 4 hours As needed; 240 milliliter. - Medication Reconciliation Form, Thank You Letter, Antibiotic Education, Prescription Opioid Use form. - Follow up: Emergency Department; When: As needed; Reason: Worsening of condition. Follow up: Private Physician; When: 2 - 3 days; Reason: Recheck today's complaints, Continuance of care, Re-evaluation by your physician. - Problem is new. - Symptoms have improved. Signatures: Dispatcher [employer] EDDallas London MD MD kdr Ruiz, Claudia RN RN cr4 Wisam Anderson NP HOSP[facility] [employer] pm1 Gardose, Bhupendra, RN RN mg2 Corrections: (The following items were deleted from the chart) 01:02 01:02 Ativan 1 mg IVP once ordered. pm1 pm1 03:05 01:50 11/13/2019 01:50 Discharged to Home. Impression: Chronic obstructive pulmonary cr4 disease with (acute) exacerbation. Condition is Stable. Forms are Medication Reconciliation Form, Thank You Letter, Antibiotic Education, Prescription Opioid Use. Follow up: Emergency Department; When: As needed; Reason: Worsening of condition. Follow up: Private Physician; When: 2 - 3 days; Reason: Recheck today's complaints, Continuance of care, Re-evaluation by your physician. Problem is new. Symptoms have improved. pm1
--- NOTE | 2019-11-13 01:51 | ER ---
Nurse's Notes [facility] Name: Angelo Narvaez Age: 64 yrs Sex: Male : 1955 Arrival Date: 11/12/2019 Time: 22:17 Bed 23 Private MD: Diagnosis: Chronic obstructive pulmonary disease with (acute) exacerbation Presentation: 11/12 22:40 Presenting complaint: Patient states: he is coughing hard for long time now and fever mg2 today with shortness of breath too. Transition of care: patient was not received from another setting of care. Onset of symptoms was November 12, 2019. Risk Assessment: Do you want to hurt yourself or someone else? Patient reports no desire to harm self or others. Care prior to arrival: None. 22:40 Method Of Arrival: Ambulatory mg2 22:40 Acuity: STEPHIE 2 mg2 22:40 Initial Sepsis Screen: Does the patient meet any 2 criteria? RR > 20 per min. Temp cr4 <36.0*C (96.8*F)) or > 38.3*C (100.9*F). HR > 90 bpm. Yes Does the patient have a suspected source of infection? Yes: Productive cough/pneumonia If YES to both, name of provider notified: Wisam Anderson NP Historical: - Allergies: 22:47 Prednisone; mg2 - PMHx: 22:47 Atrial Fib; COPD; HTN; Lung Cancer; Pneumothorax; mg2 - PSHx: 22:47 Appendectomy; Lobectomy; mg2 - Immunization history:: Flu vaccine is up to date. - Social history:: Smoking status: Patient/guardian denies using tobacco. - Ebola Screening: : No symptoms or risks identified at this time. Screenin/11 02:30 Abuse screen: Denies threats or abuse. Denies injuries from another. Nutritional cr4 screening: No deficits noted. Tuberculosis screening: No symptoms or risk factors identified. Fall Risk No fall in past 12 months (0 pts). IV access (20 points). Ambulatory Aid- None/Bed Rest/Nurse Assist (0 pts). Gait- Weak (10 pts.). Mental Status- Oriented to own ability (0 pts). Total Haskins Fall Scale indicates Low Risk Score (25-44 pts). Side Rails Up X 2 Family Present and informed to notify staff if they need to leave bedside. Assessment: 11/12 22:50 General: Appears uncomfortable, well groomed, Behavior is cooperative, anxious. Neuro: cr4 Denies blurred vision difficulty swallowing, headache. Neuro: Reports dizziness, since off and on since October 16. Cardiovascular: Denies chest pain, lightheadedness, nausea, palpitations, Heart tones S1 S2 Capillary refill < 3 seconds Clubbing of nail beds is absent Patient's skin is warm and dry. Rhythm is sinus tachycardia. Respiratory: Airway is patent Trachea midline Respiratory effort is labored, Respiratory pattern is regular, Sputum is thick, yellow Breath sounds with wheezes in left posterior lower lobe and right posterior lower lobe Onset: The symptoms/episode began/occurred symptoms started in mid October and became worse withi the last 2 days., the patient has moderate shortness of breath Denies cough, labored breathing, pain with cough, Parent/caregiver reports the patient having shortness of breath cough that is productive. GI: Abdomen is flat, Last BM was November 12, 2019. Bowel sounds present X 4 quads. Reports diarrhea, Patient currently denies nausea, vomiting. : Reports decreased urine production as reported by . Denies burning with urination, incontinence. EENT: Reports Denies decreased hearing ringing blurred vision nasal discharge. Derm: area to lower back with darkened pigmentation. Musculoskeletal: Reports weakness in generalized weakness. 11/13 00:00 Reassessment: Patient and/or family updated on plan of care and expected duration. Pain cr4 level reassessed. Patient is alert, oriented x 3, equal unlabored respirations, skin warm/dry/pink. Patient states feeling better. 00:50 Reassessment: Patient and/or family updated on plan of care and expected duration. Pain cr4 level reassessed. Patient is alert, oriented x 3, equal unlabored respirations, skin warm/dry/pink. Patient states feeling better. 01:50 Reassessment: Patient and/or family updated on plan of care and expected duration. Pain cr4 level reassessed. Patient is alert, oriented x 3, equal unlabored respirations, skin warm/dry/pink. Patient states feeling better. Patient states symptoms have improved. Respiratory: Airway is patent Trachea midline Respiratory effort is labored, Respiratory pattern is regular, Breath sounds are diminished sats down to 88% at rest after ativan given notified Mendel, applied O2 2lnc sats up to 97%. 04:34 Reassessment: help to bathroom to void before taking to car. Did not want to use cr4 urinal.. Vital Signs: 11/12 22:45 BP 173 / 100; Pulse 107; Resp 26; Temp 102.8; Pulse Ox 95% on R/A; Weight 59.87 kg; mg2 Height 5 ft. 5 in. (165.10 cm); 22:50 BP 185 / 87; Pulse 114; Resp 18; Temp 99.6; Pulse Ox 96% ; cr4 23:02 BP 169 / 87; Pulse 107; cr4 23:29 BP 169 / 87; Pulse 110; Resp 21; Pulse Ox 96% on R/A; jp3 11/13 01:04 BP 161 / 80; Pulse 115; Resp 24; Temp 98.8; Pulse Ox 92% ; Pain 0/10; cr4 01:45 BP 140 / 90; Pulse 115; Resp 25; Pulse Ox 88% ; cr4 02:05 Pulse Ox 96% on 2 lpm NC; cr4 02:40 BP 128 / 74; Pulse 107; Resp 28; Temp 99.2; Pulse Ox 96% 2 lpm ; Pain 0/10; cr4 11/12 22:45 Body Mass Index 21.96 (59.87 kg, 165.10 cm) mg2 ED Course: 11/12 22:17 Patient arrived in ED. jg7 22:45 Triage completed. mg2 22:47 Arm band placed on. mg2 22:51 Wisam Anderson NP is PHCP. pm1 22:51 Dallas Ansari MD is Attending Physician. pm1 22:53 Inserted saline lock: 20 gauge in right antecubital area, using aseptic technique. jp3 Blood collected. Patient maintains SpO2 saturation greater than 95% on room air. 22:53 Initial lab(s) drawn, by me, sent to lab. First set of blood cultures drawn by me, Flu jp3 and/or RSV swab sent to lab. Strep swab sent to lab. 23:00 Second set of blood cultures drawn by lab staff. jp3 23:11 Placed in gown. Bed in low position. Call light in reach. Side rails up X 1. Adult w/ jp3 patient. Pillow given. Verbal reassurance given. residential monitor on. Pulse ox on. NIBP on. 23:12 Flu Sent. jp3 23:13 Strep Sent. jp3 23:15 Urine collected: clean catch specimen, clear, justin colored, EKG done, by ED staff, jp3 reviewed by Wisam Anderson NP. 23:33 Chest Single View XRAY In Process Unspecified. EDMS 11/13 00:50 Nurse Practitioner and/or Physician Automatic Bow Maker Machine Tender to see patient. cr4 02:16 Throat Culture Sent. cr4 02:40 No provider procedures requiring assistance completed. IV discontinued, intact, cr4 bleeding controlled, No redness/swelling at site. Administered Medications: 11/12 23:20 Drug: NS 0.9% (30 ml/kg) 30 ml/kg {Note: 1,800ml.} Route: IV; Rate: bolus; Site: right cr4 antecubital; 11/13 00:50 Follow up: IV Status: Completed infusion; IV Intake: 1800ml cr4 11/12 23:38 Drug: Xopenex 2.5 mg Route: Inhalation; cr4 11/13 00:30 Follow up: Response: No adverse reaction; Wheezing diminished cr4 11/12 23:50 Drug: Rocephin 1 grams Route: IV; Rate: calculated rate; Site: right antecubital; mg2 11/13 00:50 Follow up: Response: No adverse reaction cr4 01:02 Follow up: Response: No adverse reaction cr4 01:02 CANCELLED (Physician Discretion): Ativan 1 mg IVP once pm1 01:03 Not Given (temp 99.6 and 98.8 \T\ 0100 Wisam MARTINEZ aware): Tylenol 1000 mg PO once cr4 01:15 Drug: AZITHromycin 500 mg Route: IVPB; Infused Over: 1 hrs; Site: right antecubital; cr4 02:40 Follow up: Response: No adverse reaction; IV Status: Completed infusion; IV Intake: cr4 250ml 01:15 Drug: Ativan 0.5 mg Route: IVP; Site: right antecubital; cr4 02:15 Follow up: Response: Pain is decreased cr4 Intake: 11/12 23:50 PO: 50ml; Total: 50ml. cr4 11/13 00:50 IV: 1800ml; Total: 1850ml. cr4 02:40 IV: 250ml; Total: 2100ml. cr4 Output: 11/12 23:50 Urine: 150ml (Voided); Total: 150ml. cr4 Outcome: 11/13 01:50 Discharge ordered by . pm1 02:40 Discharged to home via wheelchair, with family. cr4 02:40 Condition: stable 02:40 Discharge instructions given to patient, significant other, Instructed on discharge instructions, follow up and referral plans. medication usage, Demonstrated understanding of instructions, follow-up care, medications, Prescriptions given X 2. 03:05 Patient left the ED. cr4 Addendum: 11/18/2019 17:17 Addendum: Culture Results: Positive sputum culture. Phone call Attempt #1 Spoke with s s patient who reports he is feeling better, and has appointment to follow up with Dr. Wilkins tomorrow. Signatures: Dispatcher [employer] EDSari Clement, RN RN cr4 Erin rTacey RN RN ss Wsiam Anderson, PROFESSOR OF GENETICS PROFESSOR OF GENETICS pm1 Bhupendra Allen RN RN mg2 Trevon Vazquez jp3 Caity Starks7 Corrections: (The following items were deleted from the chart) 11/12 22:47 22:40 Acuity: STEPHIE 3 mg2 mg2 22:47 22:45 BP 173 / 100; Pulse 107bpm; Resp 18bpm; Pulse Ox 95% RA; Temp 102.8F; 59.87 kg; mg2 Height 5 ft. 5 in.; BMI: 21.9; mg2
[2019-11-13 03:31] VITALS: TEMP 98.8
[2019-11-13 03:33] VITALS: BP 140/90
[2019-11-13 03:34] VITALS: O2SAT 96
--- NOTE | 2019-11-13 08:00 | RAD REPORT ---
EXAM DESCRIPTION: RAD - Chest Single View - 11/12/2019 11:33 pm CLINICAL HISTORY: Fever, cough, shortness of breath COMPARISON: January 2019 portable chest, June 2019 CT chest TECHNIQUE: AP portable chest image was obtained 2326 hours . FINDINGS: No focal pneumonia changes. Interstitial pattern is not substantially different from jonna rison. Chronic pleural and parenchymal changes at the left base are also seen as stable. Heart and va sculature are normal. No measurable pleural effusion and no pneumothorax. No acute bone finding. Bila teral shoulder joint degenerative changes are present with probable chronic rotator cuff tears. No ac [place] aortic findings suspected. IMPRESSION: No acute cardiopulmonary process. No significant change from comparison.
--- NOTE | 2019-11-14 06:37 | EKG ---
Test Date: 2019-11-12 Test Time: 23:17:49 Senior Associate: MEASUREMENT RESULTS: Intervals: Rate: 123 NJ: 154 QRSD: 126 QT: 314 QTc: 449 [place]: P: 81 NJ: 154 QRS: -28 T: 56 INTERPRETIVE STATEMENTS: Sinus tachycardia Nonspecific intraventricular block Septal infarct, age undetermined Abnormal ECG Compared to ECG 01/05/2019 12:13:12 Sinus rhythm no longer present Atrial premature complex(es) no longer present Myocardial infarct finding still present Electronically Signed On 11-14-19 06:37:00 BAG MACHINE SET UP OPERATOR by Prem Thorne
== END 2019-11-13 03:05 | disposition home or self-care (01) ==
LOC: ER 22:13
DX: J44.1 Chronic obstructive pulmonary disease with (acute) exacerbation (principal); I10 Essential (primary) hypertension; Z88.8 Allergy status to other drugs, medicaments and biological substances; Z85.118 Personal history of other malignant neoplasm of bronchus and lung
CPT/HCPCS: 96365; 96367; 93005; 87040 ×2; 87070 ×2; 87088; 85025; 87086; 80048; 36415; 82550; 87205; 85610; 82947; 80076; 87081; 87184; 83605; 85730; 84484; 82553; 83690; 84145; 87804 ×2; 71045; 96375; 99285; 96366; J0456; J0696; J7030 ×2; 81003; 81015

== ENCOUNTER 2020-02-24 19:46 | Emergency (ER) | payer BC, OTHER ==
--- NOTE | 2020-02-24 20:25 | EDPHYS ---
Physician Documentation [facility] [place], [place] Name: Angelo Narvaez Age: 64 yrs Sex: Male : 1955 Arrival Date: 02/24/2020 Time: 19:49 Bed 19 Private MD: ED Physician Jorden Fang HPI: 02/23 20:28 This 64 yrs old Male presents to ER via Ambulatory with complaints of Hand kb Swelling, Hand Pain. 20:29 The patient presents with cellulitis of the lateral aspect of left hand. Description: kb erythematous, swollen, warm. Onset: The symptoms/episode began/occurred 3 day(s) ago. Possible cause(s): unknown. Associated signs and symptoms: Pertinent positives: erythema, swelling, Pertinent negatives: fever. Modifying factors: the symptoms are alleviated by nothing, the symptoms are aggravated by pressure. Severity of symptoms: At their worst the symptoms were moderate, in the emergency department the symptoms are unchanged. The patient has not experienced similar symptoms in the past. The patient has not recently seen a physician. Pt reports redness, swelling and warmth to base of left thumb that started radiating to forearm. STates he thought it was a RA flare at first, but it has only affected the left side and is getting worse. Historical: - Allergies: 20:15 Prednisone; ca1 - Home Meds: 20:15 acetaminophen 500 mg Oral tab as needed [Active]; gabapentin 300 mg Oral cap as needed ca1 [Active]; multivitamin Oral cap daily [Active]; Iron CR 65 mg daily Oral [Active]; magnesium oxide 400 mg oral cap 400 mg daily [Active]; aspirin 81 mg Oral chew 1 tab once daily [Active]; D3 1000 units daily [Active]; amiodarone 200 mg Oral tab 1 tab once daily [Active]; Lasix 40 mg oral tab 1 tab [Active]; spironolactone 25 mg Oral tab 0.5 tab nightly [Active]; metoprolol succinate 50 mg Oral Tb24 1 tab nightly [Active]; folic acid 1 mg Oral tab 1 tab once daily [Active]; Calcium Carbonate 750mg Oral daily [Active]; levothyroxine 100 mcg tab 1 tab once daily [Active]; lorazepam 0.5 mg Oral tab [Active]; dexamethasone 2 mg Oral tab [Active]; ipratropium-albuterol 0.5 mg-3 mg(2.5 mg base)/3 mL Inhl nebu [Active]; Xarelto 15 mg Oral tab nightly [Active]; simvastatin 20 mg Oral tab 1 tab once daily [Active]; Flexeril 5 mg Oral tab as needed [Active]; Trelege 1 puff [Active]; ProAir HFA 90 mcg/actuation inhalation HFAA [Active]; - PMHx: 20:15 Atrial Fib; COPD; HTN; Lung Cancer; Pneumothorax; Rheumatoid Arthritis; ca1 - PSHx: 20:15 Appendectomy; Lobectomy; ca1 - Immunization history:: Adult Immunizations up to date, Pneumococcal vaccine is up to date, Flu vaccine is up to date. - Social history:: Smoking status: Patient/guardian denies using tobacco. ROS: 20:27 Constitutional: Negative for fever, chills, and weight loss, Cardiovascular: Negative kb for chest pain, palpitations, and edema, Respiratory: Negative for shortness of breath, cough, wheezing, and pleuritic chest pain, Abdomen/GI: Negative for abdominal pain, nausea, vomiting, diarrhea, and constipation, Back: Negative for injury and pain, MS/Extremity: Negative for injury and deformity, Neuro: Negative for headache, weakness, numbness, tingling, and seizure. 20:27 Skin: Positive for erythema, swelling, of the lateral aspect of left hand. Exam: 20:27 Constitutional: This is a well developed, well nourished patient who is awake, alert, kb and in no acute distress. Head/Face: Normocephalic, atraumatic. Neck: Trachea midline, no thyromegaly or masses palpated, and no cervical lymphadenopathy. Supple, full range of motion without nuchal rigidity, or vertebral point tenderness. No Meningismus. Chest/axilla: Normal chest wall appearance and motion. Nontender with no deformity. No lesions are appreciated. Cardiovascular: Regular rate and rhythm with a normal S1 and S2. No gallops, murmurs, or rubs. Normal PMI, no JVD. No pulse deficits. Respiratory: Lungs have equal breath sounds bilaterally, clear to auscultation and percussion. No rales, rhonchi or wheezes noted. No increased work of breathing, no retractions or nasal flaring. Abdomen/GI: Soft, non-tender, with normal bowel sounds. No distension or tympany. No guarding or rebound. No evidence of tenderness throughout. MS/ Extremity: Pulses equal, no cyanosis. Neurovascular intact. Full, normal range of motion. Neuro: Awake and alert, GCS 15, oriented to person, place, time, and situation. Cranial nerves II-XII grossly intact. Motor strength 5/5 in all extremities. Sensory grossly intact. Cerebellar exam normal. Normal gait. 20:27 Skin: cellulitis, that is moderate, on the lateral aspect of left hand. Vital Signs: 20:02 BP 165 / 85; Pulse 96; Resp 17 S; Temp 97.1(TE); Pulse Ox 95% on R/A; Weight 58.06 kg ca1 (R); Height 5 ft. 5 in. (165.10 cm) (R); Pain 4/10; 20:36 BP 152 / 86; Pulse 92; Resp 18; Pulse Ox 97% on R/A; lp1 20:02 Body Mass Index 21.30 (58.06 kg, 165.10 cm) ca1 MDM: 20:02 Patient medically screened. kb 20:27 Data reviewed: vital signs, nurses notes. Data interpreted: Pulse oximetry: on room air kb is 95 %. Interpretation: normal. Counseling: I had a detailed discussion with the patient and/or guardian regarding: the historical points, exam findings, and any diagnostic results supporting the discharge/admit diagnosis, the need for outpatient follow up, a family practitioner, to return to the emergency department if symptoms worsen or persist or if there are any questions or concerns that arise at home. Administered Medications: 20:35 Drug: Clindamycin 300 mg Route: PO; lp1 20:36 Follow up: Response: Medication administered at discharge. lp1 Disposition: 02/24 06:47 Co-signature as Attending Physician, Jorden Fang MD I agree with the assessment and tw4 plan of care. Disposition: 02/24/20 20:24 Discharged to Home. Impression: Cellulitis of left upper limb. - Condition is Stable. - Discharge Instructions: Cellulitis, Adult, [id number]. - Prescriptions for Clindamycin HCl 300 mg Oral Capsule - take 1 capsule by ORAL route every 6 hours for 10 days; 40 capsule. - Medication Reconciliation Form, Thank You Letter, Antibiotic Education, Prescription Opioid Use form. - Follow up: Emergency Department; When: As needed; Reason: Worsening of condition. Follow up: Private Physician; When: 2 - 3 days; Reason: Recheck today's complaints, Continuance of care, Re-evaluation by your physician. Signatures: Daiana Whitfield, Vicky Padilla RN RN lp1 Jorden Fang MD MD tw4 Diamond Arreola RN RN ca1 Corrections: (The following items were deleted from the chart) 02/23 20:38 20:24 02/24/2020 20:24 Discharged to Home. Impression: Cellulitis of left upper limb. lp1 Condition is Stable. Forms are Medication Reconciliation Form, Thank You Letter, Antibiotic Education, Prescription Opioid Use. Follow up: Emergency Department; When: As needed; Reason: Worsening of condition. Follow up: Private Physician; When: 2 - 3 days; Reason: Recheck today's complaints, Continuance of care, Re-evaluation by your physician. kb
--- NOTE | 2020-02-24 20:25 | ER ---
Nurse's Notes [facility] Name: Angelo Narvaez Age: 64 yrs Sex: Male : 1955 Arrival Date: 02/24/2020 Time: 19:49 Bed 19 Private MD: Diagnosis: Cellulitis of left upper limb Presentation: 02/23 20:02 Chief complaint: Patient states: Started with L thumb joint that was sore 4 days ago. ca1 Then it started swelling becoming red and is really painful. I have RA and has previous attacks before but they usually just go away and usually affect both hands but this time it is just the L and it has been going on for 5 days. Put a wrist immobilizer on but it just swelled. Coronavirus screen: Proceed with normal triage. Patient denies a cough. Patient denies shortness of breath or difficulty breathing. Patient denies measured and/or subjective temperature greater than 100.4F prior to today's visit. Patient denies travel on a cruise ship or to a country the [facility] currently lists as an affected area. Patient denies contact with known and/or suspected case of COVID-19. Ebola Screen: Patient negative for fever greater than or equal to 101.5 degrees Fahrenheit, and additional compatible Ebola Virus Disease symptoms Patient denies exposure to infectious person. Patient denies travel to an Ebola-affected area in the 21 days before illness onset. No symptoms or risks identified at this time. Initial Sepsis Screen: Does the patient meet any 2 criteria? No. Patient's initial sepsis screen is negative. Does the patient have a suspected source of infection? No. Patient's initial sepsis screen is negative. Risk Assessment: Do you want to hurt yourself or someone else? Patient reports no desire to harm self or others. Onset of symptoms was February 24, 2020. 20:02 Method Of Arrival: Ambulatory ca1 20:02 Acuity: STEPHIE 3 ca1 Historical: - Allergies: 20:15 Prednisone; ca1 - Home Meds: 20:15 acetaminophen 500 mg Oral tab as needed [Active]; gabapentin 300 mg Oral cap as needed ca1 [Active]; multivitamin Oral cap daily [Active]; Iron CR 65 mg daily Oral [Active]; magnesium oxide 400 mg oral cap 400 mg daily [Active]; aspirin 81 mg Oral chew 1 tab once daily [Active]; D3 1000 units daily [Active]; amiodarone 200 mg Oral tab 1 tab once daily [Active]; Lasix 40 mg oral tab 1 tab [Active]; spironolactone 25 mg Oral tab 0.5 tab nightly [Active]; metoprolol succinate 50 mg Oral Tb24 1 tab nightly [Active]; folic acid 1 mg Oral tab 1 tab once daily [Active]; Calcium Carbonate 750mg Oral daily [Active]; levothyroxine 100 mcg tab 1 tab once daily [Active]; lorazepam 0.5 mg Oral tab [Active]; dexamethasone 2 mg Oral tab [Active]; ipratropium-albuterol 0.5 mg-3 mg(2.5 mg base)/3 mL Inhl nebu [Active]; Xarelto 15 mg Oral tab nightly [Active]; simvastatin 20 mg Oral tab 1 tab once daily [Active]; Flexeril 5 mg Oral tab as needed [Active]; Trelege 1 puff [Active]; ProAir HFA 90 mcg/actuation inhalation HFAA [Active]; - PMHx: 20:15 Atrial Fib; COPD; HTN; Lung Cancer; Pneumothorax; Rheumatoid Arthritis; ca1 - PSHx: 20:15 Appendectomy; Lobectomy; ca1 - Immunization history:: Adult Immunizations up to date, Pneumococcal vaccine is up to date, Flu vaccine is up to date. - Social history:: Smoking status: Patient/guardian denies using tobacco. Screenin:37 Abuse screen: Denies threats or abuse. Denies injuries from another. Nutritional lp1 screening: No deficits noted. Tuberculosis screening: No symptoms or risk factors identified. Fall Risk None identified. Assessment: 20:36 General: Appears in no apparent distress. Behavior is calm, cooperative, appropriate lp1 for age. Pain: Complains of pain in left hand. Neuro: Level of Consciousness is awake, alert, obeys commands. Cardiovascular: Patient's skin is warm and dry. Respiratory: Respiratory effort is even, unlabored. GI: No signs and/or symptoms were reported involving the gastrointestinal system. : No signs and/or symptoms were reported regarding the genitourinary system. EENT: No signs and/or symptoms were reported regarding the EENT system. Derm: swelling, redness, hot to touch to dorsal side of left hand. Musculoskeletal: Swelling present in left hand. Vital Signs: 20:02 BP 165 / 85; Pulse 96; Resp 17 S; Temp 97.1(TE); Pulse Ox 95% on R/A; Weight 58.06 kg ca1 (R); Height 5 ft. 5 in. (165.10 cm) (R); Pain 4/10; 20:36 BP 152 / 86; Pulse 92; Resp 18; Pulse Ox 97% on R/A; lp1 20:02 Body Mass Index 21.30 (58.06 kg, 165.10 cm) ca1 ED Course: 19:49 Patient arrived in ED. fj1 19:56 Daiana Whitfield FNP-C [facility] kb 19:56 Jorden Fang MD is Attending Physician. kb 20:07 Triage completed. ca1 20:14 Vicky Guzman, RN is Primary Nurse. lp1 20:15 Arm band placed on right wrist. ca1 20:16 Patient has correct armband on for positive identification. Bed in low position. Call ca1 light in reach. Side rails up X 1. Pulse ox on. NIBP on. 20:38 No provider procedures requiring assistance completed. Patient did not have IV access lp1 during this emergency room visit. Administered Medications: 20:35 Drug: Clindamycin 300 mg Route: PO; lp1 20:36 Follow up: Response: Medication administered at discharge. lp1 Outcome: 20:24 Discharge ordered by . kb 20:38 Discharged to home ambulatory. lp1 20:38 Condition: good 20:38 Discharge instructions given to patient, Instructed on discharge instructions, follow up and referral plans. medication usage, Demonstrated understanding of instructions, follow-up care, medications, Prescriptions given X 1. 20:38 Patient left the ED. lp1 Signatures: Daiana Whitfield FNP-C FNP-Ckb Pena, Laura, RN RN lp1 Diamond Arreola RN RN ca1 Uriah Wiley fj1
[2020-02-24 20:43] VITALS: TEMP 97.1
[2020-02-24 20:45] VITALS: BP 152/86; O2SAT 97
== END 2020-02-24 20:38 | disposition home or self-care (01) ==
LOC: ER 19:46
DX: L03.114 Cellulitis of left upper limb (principal); I10 Essential (primary) hypertension; I48.91 Unspecified atrial fibrillation; J44.9 Chronic obstructive pulmonary disease, unspecified; Z85.118 Personal history of other malignant neoplasm of bronchus and lung; Z90.2 Acquired absence of lung [part of]; Z79.01 Long term (current) use of anticoagulants; Z79.82 Long term (current) use of aspirin; Z88.8 Allergy status to other drugs, medicaments and biological substances
CPT/HCPCS: 99283

== ENCOUNTER 2020-03-30 12:05 | Day surgery (SDC) | payer BC, OTHER ==
[2020-03-30] MEDS ORDERED: Ringers Lactate 1,000 ML IV ONE (12:23)
[2020-03-30 13:11] LABS: Potassium 4.8 mmol/L (3.5-5.1)
[2020-03-30] MEDS ORDERED: propofoL 200 MG/20 ML VIAL IV ONE (13:11)
[2020-03-30] MEDS ORDERED: LIDOCAINE 1% MPF 5 ML VIAL ONE (13:11)
--- OUTSIDE RECORDS SUMMARY | 2020-03-30 13:40 | XMS REPORT | Clinical Summary ---
:1955 Author Organization [facility] Address [address] [place] [address] Care Team Providers Name Role Phone MD Claudette Primary Care Provider Allergies No Known Allergies Medications Medication Sig Dispensed Refills Start Date End Date Status aspirin (ECOTRIN) 81 MG Take 81 mg by 0 Active enteric coated tablet mouth daily. multivitamin with Take 1 tablet 0 Active minerals tablet by mouth daily. cyclobenzaprine Take 5 mg by 0 A ctive (FLEXERIL) 5 mg tablet mouth 3 (three) times a day as needed for muscle spasms. simvastatin (ZOCOR) 20 MG Take 20 mg by 0 Active tablet mouth nightly. folic acid (FOLVITE) 1 MG Take 1 mg by 0 Active tablet mouth daily. 3 DAILY albuterol (PROAIR Inhale 2 puffs 0 Active HFA,PROVENTIL every 6 (six) HFA,VENTOLIN HFA) 90 hours as needed mcg/actuation inhaler for wheezing. amLODIPine (NORVASC) 10 TK 1 T PO QD 1 02/21/2017 Active mg tablet metoprolol succinate XL 50 mg 2 (two) 2 08/28/2017 Active (TOPROL-XL) 100 mg 24 hr times a day. tablet omeprazole (PriLOSEC) 20 20 mg. 3 08/22/2017 Active MG capsule rivaroxaban (XARELTO) 15 Take 15 mg by 0 Active mg tablet mouth. theophylline (LACIE-24) Take 200 mg by 0 Active 100 MG 24 hr capsule mouth daily. furosemide (LASIX) 80 mg Take 80 mg by 0 Active tablet mouth 2 (two) times a day. spironolactone Take 12.5 mg by 0 Active (ALDACTONE) 25 MG tablet mouth daily. predniSONE (DELTASONE) 10 Take 10 mg by 0 Active mg tablet mouth daily. amIODarone (PACERONE) 200 Take 200 mg by 0 Active MG tablet mouth daily. ferrous sulfate 325 (65 Take 325 mg by 0 Active FE) MG tablet mouth daily with breakfast. magnesium oxide 250 mg Take 250 mg by 0 Active tablet mouth daily. gabapentin (NEURONTIN) Take 300 mg by 0 Active 300 mg capsule mouth 3 (three) times a day. Active Problems Patient Care Coordination Note Referring physician is Valery Bucio [address] [place] [address] P: [phone] F: [phone] Problem Noted Date Pneumothorax 10/27/2018 Malignant neoplasm of upper lobe bronchus 07/15/2017 Cancer Staging: Pathologic stage from 10/2017: Stage IA (yT1a, N0, cM0) - Signed by Blu Lay MD on 07/29/2017 Hypertension 02/03/2017 COPD (chronic obstructive pulmonary disease) 7 Rheumatoid arthritis 02/03/2017 Smoking 02/03/2017 Family History Medical History Relation Name Comments Skin cancer Brother COPD Father Emphysema Father Heart failure Father Lung cancer Father Skin cancer Father No Known Problems Mother No Known Problems Sister Relation Name Status Comments Brother Father Mother Sister Social History Tobacco Use Types Packs/Day Years Used Date Former Smoker Cigarettes 1 51 Quit: 01/02/20 17 Smokeless Tobacco: Never Used Tobacco Cessation: Counseling Given: Yes Alcohol Use Drinks/Week oz/Week Comments Yes 3 Cans of beer 3.0 Sex Assigned at Date Recorded Not on file Job Start Date Occupation Industry Not on file Not on file Not on file Travel History Travel Start Travel End No recent travel history available. 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 Model / Identifier Expiration Serial / Date Lot Hemostat Absrbl Oxidized Knttd 3x4in Cllos Surgicel Nu -Knit - [id number] Surgical N/A: N/A [employer] [facility] 03/02/2022 1943 / Implanted: 07/15/2017 at [facility] (Quantity not on file) Implants; / Expanders; [id number] Extenders; Surgical Wires Hemostat Absrbl Oxidized Knttd 3x4in Cllos Surgicel Nu -Knit - [id number] Surgical N/A: N/A [facility] / Implanted: 07/15/2017 at [facility] (Quantity not on file) Implants; / Expanders; [id number] Extenders; Surgical Wires Hemostat Absrbl Oxidized Knttd 3x4in Cllos Surgicel Nu -Knit - [id number] Surgical N/A: N/A [facility] 03/02/20221942 / Implanted: 07/15/2017 at [facility] (Quantity not on file) Implants; / Expanders; [id number] Extenders; Surgical Wires Hemostat Absrbl Oxidized Knttd 3x4in Cllos Surgicel Nu -Knit - [id number] Surgical N/A: N/A [facility] 03/02/2022 194 / Implanted: 07/15/2017 at [facility] (Quantity not on file) Implants; / Expanders; [id number] Extenders; Surgical Wires Hemostat Absrbl Oxidized Knttd 3x4in Cllos Surgicel Nu -Knit - [id number] Surgical N/A: N/A [facility] 03/02/20221942 / Implanted: 07/15/2017 at [facility] (Quantity not on file) Implants; / Expanders; [id number] Extenders; Surgical Wires Kit Selnt Plrl Air Leak 4ml Strl Progel - [id number] Surgical N/A: N/A [employer] 07/04/2018 [id number] / Implanted: Qty: 1 on 07/15/2017 by Blu Lay MD at [facility] Implants; / Expanders; Extenders; Surgical Wires Matrix Hmstc Floseal 10ml W/ Humn F2 - [id number] Surgical N/A: N/A B AXTER [id number] / Implanted: 07/15/2017 at [facility] (Quantity not on file) Imp lants; BIOSCIENCE / Expanders; Extenders; Surgical Wires Kit Selnt Plrl Air Leak 4ml Strl Progel - [id number] Surgical N/A: N/A [employer] [id number] / Implanted: 07/15/2017 at [facility] (Quantity not on file) Implants; / Expanders; Extenders; Surgical Wires Results Not on fileafter 03/30/2019 Insurance Payer Benefit Plan / Subscriber ID Effective Dates Phone Addre ss Type Group BCBS [facility] xxxxxxxxxxxx 2017-Present PPO MEDICARE MEDICARE PART A xxxxxxxxxxx 2018-Present [place], [place] Medicare AND B (Work) [id number] Advance Directives For more information, please contact: [phone] Type Date Recorded 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
[2020-03-30 14:14] VITALS: TEMP 98.2
[2020-03-30 14:16] VITALS: O2SAT 98
[2020-03-30 14:17] VITALS: BP 104/59
--- NOTE | 2020-06-06 23:11 | OP ---
Surgeon: Von Carballo MD Procedure Performed: Esophagogastroduodenoscopy. Indication For Procedure: Abnormal imaging revealing thickening of the distal esophagus suspicious o f malignancy. Plan For Anesthesia: Monitored anesthesia care. Complexity: Average. Technique: After obtaining informed consent from the patient explaining risks and complications whic h include, but not limited to bleeding, infection, perforation, and anesthesia complication, the elfego ent was placed in the left lateral position and sedation was given. From then on, the scope was adva nced into the mouth and carefully guided up till the second portion of the duodenum. After completio n of examination, scope and equipment were withdrawn and procedure terminated in a safe manner. Findings: Esophagus: No gross lesion seen in the upper and mid esophagus. In the distal esophagus, there was evidence of 2 tongues of salmon-colored mucosa suspicious of Dao's, [place] C0M1. Mult iple biopsies taken. There was definitively no evidence of any mass lesion or concerning finding. Stomach: Mild patchy erythema seen in the body and antrum. Biopsies taken. Retroflexion also did n ot reveal any fundic mass. Duodenum: The bulb and second portion were normal. Complications: None. Tolerance To Anesthesia: Excellent. Postoperative Diagnoses: Gastritis, suspected Dao's. Plan: 1.Await pathology results. 2.Follow up in the GI Clinic in 2 weeks. 3.Oral PPI. US/MODL Voice ID: [id number] Report ID: [id number]
== END 2020-03-30 14:00 | disposition home or self-care (01) ==
LOC: OR 12:05
PROVIDERS: ATTEND Internal Medicine Gastroenterology
PROC: 0DB78ZX Excision of Stomach, Pylorus, Via Natural or Artificial Opening Endoscopic, Diagnostic (ICD-10-PCS; 2020-03-30)
PROC: 0DB68ZX Excision of Stomach, Via Natural or Artificial Opening Endoscopic, Diagnostic (ICD-10-PCS; 2020-03-30)
PROC: 0DB38ZX Excision of Lower Esophagus, Via Natural or Artificial Opening Endoscopic, Diagnostic (ICD-10-PCS; principal; 2020-03-30 12:30)
DX: K29.50 Unspecified chronic gastritis without bleeding (principal); I10 Essential (primary) hypertension; Z79.82 Long term (current) use of aspirin; Z79.01 Long term (current) use of anticoagulants
CPT/HCPCS: 43239; 80048; 36415; 88312; 88305; J2704; J7120

== ENCOUNTER 2020-07-06 18:54 | Inpatient (IN) | payer BC, OTHER ==
--- OUTSIDE RECORDS SUMMARY | 2020-07-06 18:56 | XMS REPORT | Clinical Summary ---
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 Device Shelf Model / Identifier Expiration Serial / Date Lot Hemostat Absrbl Oxidized Knttd 3x4in Cllos Surgicel Nu -Knit - [id number] Surgical N/A: N/A [facility] 03/02/2022 1943 / Implanted: 07/15/2017 at [facility] (Quantity not on file) Implants; / Expanders; [id number] Extenders; Surgical Wires Hemostat Absrbl Oxidized Knttd 3x4in Cllos Surgicel Nu -Knit - [id number] Surgical N/A: N/A [facility] / Implanted: 07/15/2017 at [facility] (Quantity not on file) Implants; / Expanders; [id number] Extenders; Surgical Wires Hemostat Absrbl Oxidized Knttd 3x4in Cllos Surgicel Nu -Knit - [id number] Surgical N/A: N/A [facility] 03/02/20221942 / Implanted: 07/15/2017 at [facility] (Quantity not on file) Implants; / Expanders; [id number] Extenders; Surgical Wires Hemostat Absrbl Oxidized Knttd 3x4in Cllos Surgicel Nu -Knit - [id number] Surgical N/A: N/A [facility] 03/02/2022 194 / Implanted: 07/15/2017 at [facility] (Quantity not on file) Implants; / Expanders; [id number] Extenders; Surgical Wires Hemostat Absrbl Oxidized Knttd 3x4in Cllos Surgicel Nu -Knit - [id number] Surgical N/A: N/A [facility] 03/02/20221942 / Implanted: 07/15/2017 at [facility] (Quantity not on file) Implants; / Expanders; [id number] Extenders; Surgical Wires Kit Selnt Plrl Air Leak 4ml Strl Progel - [id number] Surgical N/A: N/A [employer] 07/04/2018 [id number] / Implanted: Qty: 1 on 07/15/2017 by Blu Lay MD at [facility] Implants; / Expanders; Extenders; Surgical Wires Matrix Hmstc Floseal 10ml W/ Humn F2 - [id number] Surgical N/A: N/A B AXTER [id number] / Implanted: 07/15/2017 at [facility] (Quantity not on file) Imp lants; BIOSCIENCE / Expanders; Extenders; Surgical Wires Kit Selnt Plrl Air Leak 4ml Strl Progel - [id number] Surgical N/A: N/A [employer] [id number] / Implanted: 07/15/2017 at [facility] (Quantity not on file) Implants; / Expanders; Extenders; Surgical Wires Results Not on fileafter 07/06/2019 Insurance Payer Benefit Plan / Subscriber ID Effective Dates Phone Addre ss Type Group BCBS [facility] xxxxxxxxxxxx 2017-Present PPO MEDICARE MEDICARE PART A xxxxxxxxxxx 2018-Present [place], [place] Medicare AND B (Work) [phone] Advance Directives For more information, please contact: [phone] Type Date Recorded 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
[2020-07-06 20:01] LABS: Absolute Lymphocytes (CBC) 0.4 K/uL (0.7-4.9); Basophils % 0.1 % (0-1.3); Hematocrit 37.2 % (39.6-49.0); Lymphocytes % 1.5 % (15.3-44.8); MPV 8.6 fL (7.6-11.3); RBC Red Blood Cell Count 4.66 M/uL (4.33-5.43)
[2020-07-06] MEDS ORDERED: ONDANSETRON 4 MG/2 ML VIAL ONE (20:08)
[2020-07-06] MEDS ORDERED: DIPHENOX/ATROP SULF 1 TAB PO ONE (20:08)
[2020-07-06] MEDS ORDERED: NA CHLORIDE 0.9% 1,000 ML ONE (20:08)
[2020-07-06 20:12] LABS: Albumin 3.2 g/dL (3.4-5.0); Bilirubin Direct 0.1 mg/dL (0-0.2); Bilirubin Total 0.3 mg/dL (0.2-1.0); Potassium 4.4 mmol/L (3.5-5.1); Protein, Total 7.3 g/dL (6.4-8.2)
[2020-07-06 21:07] LABS: Blood Morphology Comment NOTED (NOT SEEN); Ovalocytes 2+; Platelet Estimate ADEQ; Teardrop Cell 1+
--- NOTE | 2020-07-06 23:02 | EDPHYS ---
Physician Documentation [facility] Name: Angelo Narvaez Age: 64 yrs Sex: Male : 1955 Arrival Date: 07/06/2020 Time: 18:58 Bed 23 Private MD: ED Physician Homer Sheldon HPI: 07/06 20:07 This 64 yrs old Male presents to ER via Wheelchair with complaints of pkl Vomiting/Diarrhea. 20:07 The patient presents to the emergency department with nausea, that is mild, diarrhea. pkl Onset: The symptoms/episode began/occurred 5 day(s) ago. Historical: - Allergies: 19:08 Prednisone; ll1 - PMHx: 19:08 Atrial Fib; COPD; Pneumothorax; Lung Cancer; HTN; Rheumatoid Arthritis; kidney disease; ll1 Gout; - PSHx: 19:08 Appendectomy; Lobectomy; ll1 - Immunization history:: Flu vaccine is up to date. - Social history:: Smoking status: Patient/guardian denies using tobacco, the patient reports quitting approximately 5 years ago, Patient uses alcohol, but reports only rare drinking. Patient/guardian denies using street drugs. ROS: 20:07 Eyes: Negative for injury, pain, redness, and discharge, ENT: Negative for injury, pkl pain, and discharge, Neck: Negative for injury, pain, and swelling, Cardiovascular: Negative for chest pain, palpitations, and edema, Respiratory: Negative for shortness of breath, cough, wheezing, and pleuritic chest pain. 20:07 Abdomen/GI: Positive for nausea, diarrhea. 20:07 Back: Negative for acute changes. 20:07 : Negative for urinary symptoms. 20:07 MS/extremity: Negative for acute changes. 20:07 Skin: Negative for rash. 20:07 Neuro: Negative for altered mental status. Exam: 20:07 Head/Face: Normocephalic, atraumatic. Eyes: Pupils equal round and reactive to light, pkl extra-ocular motions intact. Lids and lashes normal. Conjunctiva and sclera are non-icteric and not injected. Cornea within normal limits. Periorbital areas with no swelling, redness, or edema. ENT: Nares patent. No nasal discharge, no septal abnormalities noted. Tympanic membranes are normal and external auditory canals are clear. Oropharynx with no redness, swelling, or masses, exudates, or evidence of obstruction, uvula midline. Mucous membranes moist. Neck: Trachea midline, no thyromegaly or masses palpated, and no cervical lymphadenopathy. Supple, full range of motion without nuchal rigidity, or vertebral point tenderness. No Meningismus. Chest/axilla: Normal chest wall appearance and motion. Nontender with no deformity. No lesions are appreciated. Cardiovascular: Regular rate and rhythm with a normal S1 and S2. No gallops, murmurs, or rubs. Normal PMI, no JVD. No pulse deficits. Respiratory: Lungs have equal breath sounds bilaterally, clear to auscultation and percussion. No rales, rhonchi or wheezes noted. No increased work of breathing, no retractions or nasal flaring. Abdomen/GI: Soft, non-tender, with normal bowel sounds. No distension or tympany. No guarding or rebound. No evidence of tenderness throughout. Back: No spinal tenderness. No costovertebral tenderness. Full range of motion. Skin: Warm, dry with normal turgor. Normal color with no rashes, no lesions, and no evidence of cellulitis. MS/ Extremity: Pulses equal, no cyanosis. Neurovascular intact. Full, normal range of motion. Neuro: Awake and alert, GCS 15, oriented to person, place, time, and situation. Cranial nerves II-XII grossly intact. Motor strength 5/5 in all extremities. Sensory grossly intact. Cerebellar exam normal. Normal gait. Vital Signs: 19:05 BP 164 / 81; Pulse 107; Resp 18; Temp 98.7; Pulse Ox 99% ; Weight 54.43 kg; Height 5 ll1 ft. 4 in. (162.56 cm); Pain 2/10; 20:30 BP 149 / 60; Pulse 105; Resp 16; Pulse Ox 98% on R/A; jb4 22:00 BP 172 / 89; Pulse 116; Resp 20; Pulse Ox 100% on R/A; jb4 23:00 BP 170 / 91; Pulse 120; Resp 18; Pulse Ox 96% on R/A; jb4 23:45 BP 171 / 80; Pulse 115; Resp 18; Temp 97.6(O); Pulse Ox 97% on R/A; jb4 19:05 Body Mass Index 20.60 (54.43 kg, 162.56 cm) ll1 MDM: 19:12 Patient medically screened. pkl 21:37 Data reviewed: vital signs, nurses notes, lab test result(s), radiologic studies, CT pkl scan. 22:55 ED course: Talked to Dudley Morgan, admit to Dr. Timothy Vegas. pkl 07/06 19:22 Order name: Basic Metabolic Panel; Complete Time: 21:36 pkl 07/06 19:22 Order name: CBC with Diff; Complete Time: 21:36 pkl 07/06 19:22 Order name: Hepatic Function; Complete Time: 21:36 pkl 07/06 19:22 Order name: Lipase; Complete Time: 21:36 pkl 07/06 19:22 Order name: Stool Culture pkl 07/06 20:31 Order name: Manual Differential; Complete Time: 21:36 EDMS 07/06 19:22 Order name: IV Saline Lock; Complete Time: 19:52 pkl 07/06 19:51 Order name: Abdomen EDMS 07/06 23:00 Order name: COVID-19 bb 07/06 19:22 Order name: Labs collected and sent; Complete Time: 19:52 pkl Administered Medications: 20:00 Drug: NS 0.9% 500 ml Route: IV; Rate: bolus; Site: right antecubital; jb4 20:36 Follow up: Response: No adverse reaction; IV Status: Completed infusion; IV Intake: jb4 500ml 20:00 Drug: Zofran (Ondansetron) 4 mg Route: IVP; Site: right antecubital; jb4 20:36 Follow up: Response: No adverse reaction; Nausea is decreased jb4 20:09 Drug: LoMOTIL 2 tabs Route: PO; jb4 20:36 Follow up: Response: No adverse reaction jb4 20:37 Drug: NS 0.9% 1000 ml Route: IV; Rate: 100 ml/hr; Site: right antecubital; jb4 07/07 00:27 Follow up: Response: No adverse reaction; IV Status: Infusion continued upon admission jb4 Disposition: 07/06/20 23:01 Hospitalization ordered by Timothy Vegas for Inpatient Admission. Preliminary diagnosis is Colitis. Leukocytosis. Dehyrdation. Chronic renal disease. - Bed requested for Telemetry/MedSurg (Inpatient). - Status is Inpatient Admission. jb4 - Condition is Stable. - Problem is new. - Symptoms are unchanged. Signatures: Dispatcher [employer] [facility] Homer Sheldon MD MD pkl Madai Lowe RN RN tl1 Saurabh Lee, NIK RN jb4 Catracho Paula RN RN ll1 Corrections: (The following items were deleted from the chart) 07/06 19:51 19:23 Abdomen Pelvis W Con+CT.RAD.BRZ ordered. [facility] 07/07 00:02 07/06 23:01 Hospitalization Ordered by Timothy Vegas MD for Inpatient Admission. tl1 Preliminary diagnosis is Colitis. Leukocytosis. Dehyrdation. Chronic renal disease. Bed requested for Telemetry/MedSurg (Inpatient). Status is Inpatient Admission. Condition is Stable. Problem is new. Symptoms are unchanged. [facility] 07/07 00:27 00:02 07/06/2020 23:01 Hospitalization Ordered by Timothy Vegas MD for Inpatient jb4 Admission. Preliminary diagnosis is Colitis. Leukocytosis. Dehyrdation. Chronic renal disease. Bed requested for Telemetry/MedSurg (Inpatient). Status is Inpatient Admission. Condition is Stable. Problem is new. Symptoms are unchanged. tl1
--- NOTE | 2020-07-06 23:02 | ER ---
Nurse's Notes [facility] Name: Angelo Narvaez Age: 64 yrs Sex: Male : 1955 Arrival Date: 07/06/2020 Time: 18:58 Bed 23 [facility] MD: Diagnosis: Colitis. Leukocytosis. Dehyrdation. Chronic renal disease Presentation: 07/06 19:05 Chief complaint: Patient states: Friday started with diarrhea, possible food ll1 poisoning. Has nausea and dry heaves today. + weakness and pale. No fever. Coronavirus screen: Client denies travel out of the [place] in the last 14 days. At this time, the client does not indicate any symptoms associated with coronavirus-19. Ebola Screen: Patient denies travel to an Ebola-affected area in the 21 days before illness onset. Initial Sepsis Screen: Does the patient meet any 2 criteria? HR > 90 bpm. No. Patient's initial sepsis screen is negative. Risk Assessment: Do you want to hurt yourself or someone else? Patient reports no desire to harm self or others. Onset of symptoms was July 02, 2020. 19:05 Method Of Arrival: Wheelchair ll1 19:05 Acuity: STEPHIE 3 ll1 Historical: - Allergies: 19:08 Prednisone; ll1 - PMHx: 19:08 Atrial Fib; COPD; Pneumothorax; Lung Cancer; HTN; Rheumatoid Arthritis; kidney disease; ll1 Gout; - PSHx: 19:08 Appendectomy; Lobectomy; ll1 - Immunization history:: Flu vaccine is up to date. - Social history:: Smoking status: Patient/guardian denies using tobacco, the patient reports quitting approximately 5 years ago, Patient uses alcohol, but reports only rare drinking. Patient/guardian denies using street drugs. Screenin:20 Abuse screen: Denies threats or abuse. Nutritional screening: No deficits noted. jb4 Tuberculosis screening: No symptoms or risk factors identified. Fall Risk None identified. Assessment: 19:20 General: Appears in no apparent distress. uncomfortable, Behavior is calm, cooperative, jb4 appropriate for age. Pain: Complains of pain in abdomen Pain does not radiate. Pain currently is 1 out of 10 on a pain scale. Quality of pain is described as crampy. Neuro: Level of Consciousness is awake, alert, obeys commands, Oriented to person, place, time, situation. Cardiovascular: Patient's skin is warm and dry. Respiratory: Airway is patent Respiratory effort is even, unlabored, Respiratory pattern is regular, symmetrical. GI: Abdomen is flat, non-distended, Bowel sounds present X 4 quads. Abd is soft and non tender X 4 quads. Reports cramping, diarrhea, nausea, vomiting. : No signs and/or symptoms were reported regarding the genitourinary system. EENT: No signs and/or symptoms were reported regarding the EENT system. Derm: Skin is intact, Skin is pink, warm \T\ dry. Musculoskeletal: Circulation, motion, and sensation intact. Range of motion: intact in all extremities. 20:09 Reassessment: CT notified pt finished oral contrast. jb4 20:36 Reassessment: Patient appears in no apparent distress at this time. Patient and/or jb4 family updated on plan of care and expected duration. Pain level reassessed. Patient is alert, oriented x 3, equal unlabored respirations, skin warm/dry/pink. Nausea decreased Patient states feeling better. 21:45 Reassessment: Patient appears in no apparent distress at this time. Patient and/or jb4 family updated on plan of care and expected duration. Pain level reassessed. Patient is alert, oriented x 3, equal unlabored respirations, skin warm/dry/pink. PT to CT. 22:10 Reassessment: Patient and/or family updated on plan of care and expected duration. Pain jb4 level reassessed. Patient is alert, oriented x 3, equal unlabored respirations, skin warm/dry/pink. PT is back from CT, resting comfortably in bed, no s/s of pain or distress noted. 22:55 Reassessment: Patient and/or family updated on plan of care and expected duration. Pain jb4 level reassessed. Patient is alert, oriented x 3, equal unlabored respirations, skin warm/dry/pink. Provider notified that patient has had 2 diarreah bowel movements and the hears rate has increased to 116. No new orders at this time. 23:56 Reassessment: Patient appears in no apparent distress at this time. Patient and/or jb4 family updated on plan of care and expected duration. Pain level reassessed. Patient is alert, oriented x 3, equal unlabored respirations, skin warm/dry/pink. Stool specimen sent to lab Patient states feeling better. 07/07 00:04 Reassessment: attempted to call report, instructed to wait for call back. jb4 Vital Signs: 07/06 19:05 BP 164 / 81; Pulse 107; Resp 18; Temp 98.7; Pulse Ox 99% ; Weight 54.43 kg; Height 5 ll1 ft. 4 in. (162.56 cm); Pain 2/10; 20:30 BP 149 / 60; Pulse 105; Resp 16; Pulse Ox 98% on R/A; jb4 22:00 BP 172 / 89; Pulse 116; Resp 20; Pulse Ox 100% on R/A; jb4 23:00 BP 170 / 91; Pulse 120; Resp 18; Pulse Ox 96% on R/A; jb4 23:45 BP 171 / 80; Pulse 115; Resp 18; Temp 97.6(O); Pulse Ox 97% on R/A; jb4 19:05 Body Mass Index 20.60 (54.43 kg, 162.56 cm) ll1 ED Course: 18:58 Patient arrived in ED. mr 19:07 Triage completed. ll1 19:08 Arm band placed on. ll1 19:12 Homer Sheldon MD is Attending Physician. pkl 19:20 Patient has correct armband on for positive identification. Bed in low position. Call jb4 light in reach. Side rails up X 1. Pulse ox on. NIBP on. 19:34 Saurabh Lee RN is Primary Nurse. jb4 19:45 Inserted saline lock: 22 gauge in right antecubital area, using aseptic technique. ll1 Blood collected. 22:00 Abdomen In Process Unspecified. EDMS 22:56 Timothy Vegas MD is Hospitalizing Provider. pkl 07/07 00:09 No provider procedures requiring assistance completed. Patient admitted, IV remains in jb4 place. Administered Medications: 07/06 20:00 Drug: NS 0.9% 500 ml Route: IV; Rate: bolus; Site: right antecubital; jb4 20:36 Follow up: Response: No adverse reaction; IV Status: Completed infusion; IV Intake: jb4 500ml 20:00 Drug: Zofran (Ondansetron) 4 mg Route: IVP; Site: right antecubital; jb4 20:36 Follow up: Response: No adverse reaction; Nausea is decreased jb4 20:09 Drug: LoMOTIL 2 tabs Route: PO; jb4 20:36 Follow up: Response: No adverse reaction jb4 20:37 Drug: NS 0.9% 1000 ml Route: IV; Rate: 100 ml/hr; Site: right antecubital; jb4 07/07 00:27 Follow up: Response: No adverse reaction; IV Status: Infusion continued upon admission jb4 Intake: 07/06 20:36 IV: 500ml; Total: 500ml. jb4 Outcome: 23:01 Decision to Hospitalize by Provider. blaise 07/07 00:26 Admitted to Med/surg accompanied by nurse, via wheelchair, room 218, with chart, Report jb4 called to NIK Bautista Condition: stable Discharge instructions given to patient, Instructed on the need for admit, Demonstrated understanding of instructions. 00:27 Patient left the ED. jb4 Signatures: Dispatcher [employer] EDMS Homer Sheldon MD MD pk Renetta Weber James, RN RN jb4 Catracho Paula RN RN ll1
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
[2020-07-07] MEDS ORDERED: LORAZEPAM 0.5 MG TABLET PO PRN (00:26)
[2020-07-07] MEDS: IPRATROPIUM BROM 0.5MG/2.5ML NEB PRN ×2 (00:45→19:50)
[2020-07-07] MEDS: ALBUTEROL 2.5 MG/3 ML NEB SOL NEB PRN ×2 (00:45→19:50)
[2020-07-07 00:54] VITALS: BMI 20.2
[2020-07-07] MEDS: NA CHLORIDE 0.9% 1,000 ML IV SCH ×3 (01:02→10:27)
[2020-07-07] MEDS: METRONIDAZOLE 500mg IVPB 500 MG/100 ML BAG IV SCH ×3 (01:03→16:45)
[2020-07-07] MEDS ORDERED: NA CHLORIDE 0.9% 500 ML IV ONE (01:15)
--- NOTE | 2020-07-07 01:26 | P.INFCA ---
Sepsis Focused Assessment - Focused Assessment Complete? Sepsis Focused Assessment Completed?: Yes - Sepsis Screen Result Severe Sepsis: Negative Septic Shock: Negative - Evaluation Current stage of sepsis: Ruled out Reason for ruling out sepsis: Elevated white blood cell count, tachycardia - Vital Signs Reviewed: Yes - Examination Date exam was performed: 07/07/20 Time exam was performed: 01:26 Heart: Tachycardia, Irregularly irregular Lungs: Clear bilaterally Peripheral pulses: 3+ Normal Peripheral pulse location: Radial Capillary refill: <2 Seconds Skin examination: Normal turgor
[2020-07-07] MEDS ORDERED: CIPROFLOXACIN 400mg IV 400 MG/200 ML BAG IV SCH ×2 (02:00→09:00)
[2020-07-07] MEDS ORDERED: ALBUTEROL INHALER 60 PUFF/8 GM IH PRN (05:12)
[2020-07-07] MEDS ORDERED: GABAPENTIN 100 MG CAP PO PRN (05:12)
[2020-07-07 06:04] LABS: Absolute Lymphocytes (CBC) 0.3 K/uL (0.7-4.9); Basophils % 0.3 % (0-1.3); Hematocrit 30.4 % (39.6-49.0); Lymphocytes % 1.9 % (15.3-44.8); MPV 8.6 fL (7.6-11.3); RBC Red Blood Cell Count 3.76 M/uL (4.33-5.43)
[2020-07-07 06:08] LABS: Potassium 4.3 mmol/L (3.5-5.1)
[2020-07-07] MEDS: LEVOTHYROXINE SOD 0.1 MG TAB PO SCH (06:35)
[2020-07-07] MEDS: PANTOPRAZOLE 40MG TABLET PO SCH (06:35)
[2020-07-07] MEDS ORDERED: SPIRONOLACTONE 25 MG TABLET PO SCH (09:00)
[2020-07-07] MEDS ORDERED: HOME MED 1 EA UNK (Omeprazole [Prilosec] 40 MG) PO SCH (09:00)
[2020-07-07] MEDS ORDERED: FUROSEMIDE 40 MG TABLET PO SCH (09:00)
[2020-07-07] MEDS: VITAMIN D 1000 UNIT TAB PO SCH (09:00)
[2020-07-07] MEDS: CALCIUM CARBONATE CHEW 500MG TAB PO SCH (09:11)
[2020-07-07] MEDS: METOPROLOL XL 50 MG TAB PO SCH (09:11)
[2020-07-07] MEDS: AMIODARONE HCL 200 MG TAB PO SCH (09:12)
[2020-07-07] MEDS: ACETAMINOPHEN 500 MG TAB PO PRN (09:12)
[2020-07-07] MEDS: ASPIRIN 81 MG CHEWABLE TABLET PO SCH (09:12)
[2020-07-07] MEDS: FOLIC ACID 1 MG TABLET PO SCH (09:12)
[2020-07-07] MEDS: FERROUS SULFATE 325 MG TAB PO SCH (09:13)
--- NOTE | 2020-07-07 09:50 | RAD REPORT ---
EXAM DESCRIPTION: CT Abdomen and Pelvis Without Intravenous Contrast CLINICAL HISTORY: The patient is 64 years old and is Male; diarrhea;Abd pain TECHNIQUE: Axial computed tomography images of the abdomen and pelvis without intravenous contrast. Sagittal and coronal reformatted images were created and reviewed. This CT exam was performed usi ng one or more of the following dose reduction techniques: automated exposure control, adjustment o f the mA and/or kV according to patient size, and/or use of iterative reconstruction technique. DLP: 599 mGy*cm COMPARISON: CT chest, abdomen and pelvis dated December. FINDINGS: LUNG BASES: Bibasilar hyperinflation. No focal consolidation. HEART: Visualized heart is within normal limits. MEDIASTINUM: Small hiatal hernia. ABDOMEN: LIVER: Unremarkable. GALLBLADDER AND BILE DUCTS: Unremarkable. No calcified stones. No ductal dilation. PANCREAS: Unremarkable. No ductal dilation. SPLEEN: Unremarkable. No splenomegaly. ADRENALS: Unremarkable. No mass. KIDNEYS AND URETERS: Multiple hypodense and hyperdense left renal cysts. Largest cyst seen in the superior pole measuring approximately 4.2 cm. Bilateral punctate nonobstructive renal stones. STOMACH AND BOWEL: Enteric contrast is seen in the distal small bowel and throughout the large bow el. Advanced large bowel wall thickening involving the cecum, ascending and transverse colon as well as sigmoid colon. Associated luminal narrowing. Pericolonic fat stranding noted. The transverse colon is within normal limits. PELVIS: APPENDIX: No findings to suggest acute appendicitis. BLADDER: Bladder is decompressed. No stones. REPRODUCTIVE: Unremarkable as visualized. ABDOMEN and PELVIS: INTRAPERITONEAL SPACE: Unremarkable. No free air. No significant fluid collection. BONES/JOINTS: No acute fracture. No dislocation. SOFT TISSUES: Unremarkable. VASCULATURE: Advanced atherosclerotic vascular disease. No abdominal aortic aneurysm. LYMPH NODES: Unremarkable. No enlarged lymph nodes. IMPRESSION: 1. Findings suggestive of infectious or inflammatory colitis. Pseudomonas colitis coul d have similar imaging characteristics. 2. Multiple incompletely characterized complex left renal cysts and nonobstructive bilateral renal stones. 3. Atherosclerotic disease. Electronically signed by: Ebenezer Lee DO 07/06/2020 10:26 PM CDT Due to temporary technical issues with the PACS/Fluency reporting system, reports are being signed by the in house radiologist without review as a courtesy to ensure prompt reporting. The interpreting r adiologist is fully responsible for the content of the report.
[2020-07-07] MEDS: ONDANSETRON 4 MG/2 ML VIAL IV PRN ×3 (09:54→23:34)
--- NOTE | 2020-07-07 10:36 | P.CNS ---
Date of Consult: 07/07/20 Reason for Consult: SHARITA Primary Care Provider: Dr. Wilkins, Nephrology Dr. Tsang Chief Complaint: Colitis History of Present Illness: A 64 Y/o man with PMHx of CKD IIIb/IV baseline Cr 2.2-2.4 , COPD, CHF on lasix and aldacotne , HTN , Afib and HX of remote Lunf Ca Pt presented with persistent diarrhea pt started having diarrhea last few days with more than 5 water BM , presented to ER , WBC >20K , Cr 3.4 pt started on IVF with improvement in CR no chest pain, palpitation, fever, chills or sick contact Physical exam general: AAOX3, NAD , Neck; Supple, No elevated JVD hear: RRR, normal S1,2 no murmur or rub Chest: CTAB, no rlaes or wheezes Abdomen: Soft , Nt Extremities trace edema SHARITA oc CKD IIIb/IV due to diarrhea Cr baseline 2.2-2.4 , CT scan no hydro will reduce IVF rate will hold lasix and aldactone Diarrhea F/u stool studies cont IVF will hold diuretics Sepsis due to diarrhea F/U cultures COPD cont inhalers HX of CHF trce LE edema will hold lasix and aldactone will reduce IVF rate complex renal cysts W/U as an OP Allergies No Known Allergies Allergy (Verified 03/29/20 17:18) Home Medications: Acetaminophen/Diphenhydramine [Tylenol Pm Ex-Strength Caplet] 2 tab PO BEDTIME PRN 07/07/20 Albuterol Sulfate [Proair Hfa] 1 puff IH BIDP PRN 07/07/20 Amiodarone HCl [Cordarone Tab] 200 mg PO DAILY 07/07/20 Aspirin Chewable [Aspirin Chewable*] 81 mg PO DAILY 07/07/20 Calcium Carbonate [Tums Regular] 1,000 mg PO DAILY 07/07/20 Cholecalciferol (Vitamin D3) [Vitamin D3] 2,000 unit PO DAILY 07/07/20 Cyclobenzaprine [Flexeril] 5 mg PO BEDTIME 07/07/20 Ferrous Sulfate [Ferrous Sulfate*] 325 mg PO DAILY 07/07/20 Fluticasone/Umeclidin/Vilanter [Trelegy Ellipta 100-62.5-25] 1 puff IH DAILY 07/07/20 Folic Acid 3 mg PO DAILY 07/07/20 Furosemide [Lasix] 40 mg PO DAILY 07/07/20 Gabapentin [Neurontin] 300 mg PO BEDTIME PRN 07/07/20 Ipratropium/Albuterol Sulfate [Iprat-Albut 0.5-3(2.5) mg/3 ml] 2 puff IH BIDP PRN 07/07/20 LORazepam [Ativan] 0.5 mg PO BEDTIME PRN 07/07/20 Levothyroxine [Synthroid] 100 mcg PO [id number] 07/07/20 Magnesium Oxide [Magnesium] 400 mg PO DAILY 07/07/20 Metoprolol Succinate [Toprol Xl] 50 mg PO DAILY 07/07/20 Multivitamin with Minerals [One Daily Plus Minerals] 1 tab PO DAILY 07/07/20 Omeprazole [Prilosec] 40 mg PO DAILY 07/07/20 Rivaroxaban [Xarelto] 15 mg PO DAILY 07/07/20 Spironolactone [Aldactone] 25 mg PO DAILY 07/07/20 allopurinoL [Zyloprim] 100 mg PO BEDTIME 07/07/20 - Past Medical/Surgical History Diabetic: No -: Hypertension -: COPD -: Atrial fibrillation on chronic anticoagulation therapy -: Lung cancer(does not know which type) -: Gout -: Chronic diastolic congestive heart failure -: Chronic kidney disease stage 4 -: left upper lung lobectomy with lymph node resection -: appendectomy -: tonsillectomy Psychosocial/ Personal History: . Currently lives at home with his - Family History Father Medical History: Heart disease, Hypertension Notes: at 75 yo Mother Notes: no medical history, still living Brother Medical History: Hypertension, Cancer Notes: melanoma Sister Medical History: Other (see notes) Notes: fibromyalgia - Social History Alcohol use: No CD- Drugs: No Caffeine use: Yes Place of Residence: Home Physical Examination Temp Pulse Resp BP Pulse Ox 99 F 100 H 16 130/67 99 07/07/20 04:00 07/07/20 09:13 07/07/20 04:00 07/07/20 09:13 07/07/20 04:00 Laboratory Data (last 24 hrs) 07/06/20 19:40: WBC 23.2 H*, Hgb 11.8 L, Hct 37.2 L, Plt Count 400 07/06/20 19:40: Sodium 138, Potassium 4.4, BUN 57 H, Creatinine 3.30 H, Glucose 129 H, Total Bilirubin 0.3, AST 17, ALT 22, Alkaline Phosphatase 90, Lipase 107
[2020-07-07 12:34] LABS: C.diff Antigen/Toxin Ag pos : Tox pos (NEG : NEG)
[2020-07-07] MEDS: RIVAROXABAN 15 MG TABLET PO SCH (16:45)
--- NOTE | 2020-07-07 17:35 | P.PN ---
Subjective Date of Service: 07/07/20 Primary Care Provider: Dr. Wilkins, Nephrology Dr. Tsang Chief Complaint: Colitis Subjective: No new changes (continues with nausea/diarrhea) Physical Examination - Vital Signs Temperature: 97.6 F Blood Pressure: 112/68 Pulse: 88 Respirations: 20 Pulse Ox (%): 99 - Physical Exam General: Alert, In no apparent distress HEENT: EOMI, Sclerae nonicteric Respiratory: Clear to auscultation bilaterally, Normal air movement Cardiovascular: Regular rate/rhythm, Normal S1 S2 Gastrointestinal: Tenderness (diffuse) Musculoskeletal: No erythema, No tenderness Integumentary: No rashes Neurological: Normal speech, Normal affect - Studies Laboratory Data (last 24 hrs) 07/06/20 19:40: WBC 23.2 H*, Hgb 11.8 L, Hct 37.2 L, Plt Count 400 07/06/20 19:40: Sodium 138, Potassium 4.4, BUN 57 H, Creatinine 3.30 H, Glucose 129 H, Total Bilirubin 0.3, AST 17, ALT 22, Alkaline Phosphatase 90, Lipase 107 Microbiology Data (last 24 hrs): 07/06/20 23:20 Nasopharnyx Coronavirus COVID-19 PCR - Final Assessment & Plan Physician Review Additional Text: Advanced camilo colitis with associated leukocytosis and dehydration Acute kidney injury on chronic kidney disease stage 4 Chronic diastolic congestive heart failure Chronic atrial fibrillation on anticoagulation therapy Hypertension COPD Gout Plan Advanced camilo colitis with associated leukocytosis and dehydration: CT shows advanced camilo colitis with associated stranding and associated luminal narrowing. Radiology states suspected Pseudomonas colitis. Came back c.diff colitis, will treat with PO vanc. Stool studies including stool culture, O&P, leukocyte stain ordered. Will continue with IV hydration as patient as reported 10-15 bowel movements per day. Acute kidney injury on chronic kidney disease stage 4: likely prerenal, improving with IVF Nephrology consult in place. Chronic diastolic congestive heart failure: Last echocardiogram shows ejection fraction 77%. Appears stable at this time. Will continue to monitor patient's volume status closely. Chronic atrial fibrillation on anticoagulation therapy: Continue patient's Xarelto Hypertension: Obtain and continue patient's home medications. COPD: Will provide patient with nebulizer treatments as needed. Will continue home medications. Gout: Obtaining continue patient's home medications. Time Spent Managing Pts Care (In Minutes): 35
[2020-07-07] MEDS: VANCOMYCIN ORAL SOLN 250 MG/5 ML OSYR PO SCH ×2 (17:51→23:34)
[2020-07-07] MEDS ORDERED: NA CHLORIDE 0.9% 250 ML ONE (18:49)
[2020-07-07] MEDS: allopurinoL 100 MG TAB PO SCH (20:09)
[2020-07-07] MEDS: CYCLOBENZAPRINE 10 MG TAB PO SCH (20:09)
[2020-07-08] MEDS: ONDANSETRON 4 MG/2 ML VIAL IV PRN ×2 (04:35→20:46)
[2020-07-08 05:39] LABS: Absolute Lymphocytes (CBC) 0.3 K/uL (0.7-4.9); Basophils % 0.1 % (0-1.3); Hematocrit 28.6 % (39.6-49.0); Lymphocytes % 2.4 % (15.3-44.8); MPV 8.9 fL (7.6-11.3); RBC Red Blood Cell Count 3.58 M/uL (4.33-5.43)
[2020-07-08] MEDS: NA CHLORIDE 0.9% 1,000 ML IV SCH (05:52)
[2020-07-08] MEDS: LEVOTHYROXINE SOD 0.1 MG TAB PO SCH (05:53)
[2020-07-08 05:54] LABS: Potassium 3.9 mmol/L (3.5-5.1)
[2020-07-08] MEDS: VANCOMYCIN ORAL SOLN 250 MG/5 ML OSYR PO SCH ×4 (05:54→23:46)
[2020-07-08] MEDS: PANTOPRAZOLE 40MG TABLET PO SCH (06:30)
[2020-07-08] MEDS: FERROUS SULFATE 325 MG TAB PO SCH (08:41)
[2020-07-08] MEDS: VITAMIN D 1000 UNIT TAB PO SCH (08:42)
[2020-07-08] MEDS: ACETAMINOPHEN 500 MG TAB PO PRN (08:42)
[2020-07-08] MEDS: ASPIRIN 81 MG CHEWABLE TABLET PO SCH (08:42)
[2020-07-08] MEDS: CALCIUM CARBONATE CHEW 500MG TAB PO SCH (08:42)
[2020-07-08] MEDS: FOLIC ACID 1 MG TABLET PO SCH (08:43)
[2020-07-08] MEDS: AMIODARONE HCL 200 MG TAB PO SCH (08:43)
[2020-07-08] MEDS: METOPROLOL XL 50 MG TAB PO SCH (08:43)
--- NOTE | 2020-07-08 08:50 | P.PN ---
Subjective Date of Service: 07/08/20 Primary Care Provider: Dr. Wilkins, Nephrology Dr. Tsang Chief Complaint: Colitis Subjective: Improving (Abdominal pain improved, continues with some nausea, and diarrhea every 1-2 hr) Review of Systems 10-point ROS is otherwise unremarkable Physical Examination - Vital Signs Temperature: 97.2 F Blood Pressure: 155/82 Pulse: 104 Respirations: 18 Pulse Ox (%): 98 - Physical Exam General: Alert, In no apparent distress HEENT: Sclerae nonicteric Neck: Supple, JVD not distended Respiratory: Diminished Cardiovascular: No edema, Regular rate/rhythm, Normal S1 S2 Gastrointestinal: Soft and benign, Non-distended, No tenderness Musculoskeletal: No tenderness Integumentary: No rashes Neurological: Normal speech, Normal affect - Studies Microbiology Data (last 24 hrs): 07/06/20 23:20 Nasopharnyx Coronavirus COVID-19 PCR - Final Medications List Reviewed: Yes Assessment & Plan Physician Review Additional Text: Advanced camilo colitis with associated leukocytosis and dehydration Acute kidney injury on chronic kidney disease stage 4 Chronic diastolic congestive heart failure Chronic atrial fibrillation on anticoagulation therapy Hypertension COPD Gout Plan Advanced camilo colitis with associated leukocytosis and dehydration: CT shows advanced camilo colitis with associated stranding and associated luminal narrowing. GI was consulted. Positive for C.diff colitis, started PO Vanc 07/07 Stool studies including stool culture, O&P, leukocyte stain ordered. Will continue with IV hydration as patient as reported 10-15 bowel movements per day. Acute kidney injury on chronic kidney disease stage 4: seems prerenal, improving with IVF Nephrology consulted, holding lasix/spironolactone getting closer to baseline Chronic diastolic congestive heart failure: Last echocardiogram shows ejection fraction 77%. Appears stable at this time. Will continue to monitor patient's volume status closely. Chronic atrial fibrillation on anticoagulation therapy: Continue patient's Xarelto Hypertension: Continue patient's home medications. COPD: Nebulizer treatments as needed. Will continue home medications. Gout: continue patient's home medications. Dispo: anticipate dc in ~2-3 days Time Spent Managing Pts Care (In Minutes): 35
[2020-07-08] MEDS ORDERED: POTASSIUM CL SA 10 MEQ TAB PO ONE (09:00)
--- NOTE | 2020-07-08 15:51 | P.PN ---
Subjective Date of Service: 07/08/20 Primary Care Provider: Dr. Wilkins, Nephrology Dr. Tsang Chief Complaint: Colitis Subjective A 64 Y/o man with PMHx of CKD IIIb/IV baseline Cr 2.2-2.4 , COPD, CHF on lasix and aldacotne , HTN , Afib and HX of remote Lunf Ca Pt presented with persistent diarrhea Today positive for C.diff still have diarrhea WBC trending down Cr at baseline , will dc IVF Physical exam general: AAOX3, NAD , Neck; Supple, No elevated JVD hear: RRR, normal S1,2 no murmur or rub Chest: CTAB, no rlaes or wheezes Abdomen: Soft , Nt Extremities trace edema SHARITA oc CKD IIIb/IV due to diarrhea Cr baseline 2.2-2.4 , CT scan no hydro will cont to hold lasix and aldactone Cr near baseline , will dc IVF C.diff diarrhea and collitis will dc IVF will hold diuretics COPD cont inhalers HX of CHF trace LE edema will hold lasix and aldactone will dc IVF complex renal cysts W/U as an OP Physical Examination - Vital Signs Temperature: 98 F Blood Pressure: 154/74 Pulse: 86 Respirations: 20 Pulse Ox (%): 99 - Studies Microbiology Data (last 24 hrs): 07/06/20 23:20 Nasopharnyx Coronavirus COVID-19 PCR - Final Medications List Reviewed: Yes
[2020-07-08] MEDS: RIVAROXABAN 15 MG TABLET PO SCH (17:29)
[2020-07-08] MEDS: CYCLOBENZAPRINE 10 MG TAB PO SCH (20:42)
[2020-07-08] MEDS: allopurinoL 100 MG TAB PO SCH (20:44)
--- NOTE | 2020-07-08 22:19 | CON ---
Date of Consultation: 07/08/2020 Reason For Consultation: C diff colitis. History Of Present Illness: The patient is a 64-year-old white male with history of left upper lobe cancer, status post resection, chronic kidney disease, rheumatoid arthritis, and gout. The patient p resented to the hospital with nausea, vomiting, diarrhea, generalized abdominal pain and chills. The patient had eaten out and today is evacuating for the [place] to [place], [place]. The patient started having diarrhea after eating at restaurant it appears. CT scan revealed advanced pancolitis with associated luminal narrowing and stranding around the colon. Radiology suspected pseudomembran ous colitis. Stool studies came back positive for C diff. The patient is on isolation, currently re ceiving p.o. vancomycin, looks like the IV Flagyl has been stopped. Past Medical History: Significant for hypertension, COPD, atrial fibrillation, lung cancer of the le ft upper lobe status post resection and radiation therapy, gout, chronic diastolic congestive heart f ailure, chronic kidney disease stage 4, left upper lobe lobectomy with lymph node resection, appendec adriana, tonsillectomy, currently lives at home with . Social History: He is , 3 children, all grown. Quit tobacco in 2017. Continues with occasio nal alcohol, but heavy alcohol abuse in the past. Family History: Father of myocardial infarction at age 75 with coronary artery disease, COPD an d asthma. His mother has lymphoma and thought to have leukemia as well. Brother with hypertension a nd cancers. Sister with fibromyalgia. Review of Systems: The patient has massive frequent diarrhea with nausea, vomiting, abdominal distention and generalized abdominal pain, 01/10, he reports currently none with therapy in hospital including vancomycin and p. r.n. pain medicine. Antiemetics. Medications: At home include Tylenol Extra Strength, albuterol which is ProAir, amiodarone, aspirin, calcium, vitamin D, Flexeril, ferrous sulfate, Trelegy Ellipta, folic acid, Lasix, gabapentin, Prove ntil, Ativan, Synthroid, magnesium, Toprol-XL, multivitamin, Prilosec, Xarelto, Aldactone, and allopu rinol. Allergies: NKDA. Physical Examination: Vital Signs: The patient is 5 feet 5, 125 pounds, BMI of 20.3 kg/sq m, temperature 98 degrees Fahren heit, pulse 66 and respirations 20, blood pressure 154/74, and O2 saturation 98%. General: He is a thin male, lying in bed with some mild abdominal distention. HEENT: Normocephalic, atraumatic. Anicteric. Pupils equal, round and reactive to light. Extraocul ar movements intact. Oropharynx clear. Neck: Supple, no masses. Respirations: Decreased breath sounds in left lung field. Cardiac: Regular rate and rhythm. No gallops or rubs. Abdomen: Positive bowel sounds. Soft. Mild distention. Tympany on percussion across the entire ab domen. No peritoneal or Yu sign. No rebound. Extremities: No clubbing or cyanosis. Neuro: Alert and oriented x3. Able to move all extremities well. Sensation intact to light touch. Laboratory Data: The patient's white count of 13.4, down from 23.2 on admission; hemoglobin of 9.3, down from 11.8 on admission; hematocrit 28.6; MCV of 80; platelet count of 293; polys of 87%; lymphoc ytes 2%; monocytes 10%; and eosinophils 1%. The patient has a sodium 141, potassium 3.9, chloride 11 0, bicarb 20, BUN of 49, creatinine of 2.51, on admission it was 3.30, glucose 104, calcium 8.0 on ad mission on the third, the patient has total bilirubin 0.3, direct bilirubin 0.1, AST of 17, ALT of 22 , alkaline phosphatase 90, total protein 7.3, albumin 3.2, lipase of 107. The patient's C diff came back positive yesterday, C diff toxin A. Imaging: CT abdomen and pelvis revealed enteric contrast seen in the distal small bowel, throughout the large bowel, advanced large bowel thickening involving the cecum, ascending, transverse colon as well as luminal narrowing, pericolonic fat stranding is noted in transverse colon looked w ithin normal limits, consistent with pseudomembranous colitis, characteristics of renal cy sts and nonobstructing bilateral renal stones and atherosclerotic disease in the blood vessels. Impression: 1.Colitis, documented with toxin A Clostridium difficile colitis. CT scan consistent with this show ing pancolitis consistent with pseudomembranous colitis. Once again with diarrhea, nausea, vomiting, generalized abdominal pain, abdominal distention. Pain is approximately 3/10 at worse, now is cooper r with IV fluids and p.o. antibiotics, vancomycin and p.r.n. pain medicines, antiemetics. The patien t also had chills, but no fever. 2.Sepsis. White count 23.2 on admission, down to 13.4 on therapy for Clostridium difficile. 3.History of left upper lobe cancer, status post surgery. 4.Chronic obstructive pulmonary disease. 5.Stage 4 kidney disease. 6.Rheumatoid arthritis. 7.Gout. 8.Multiple other past medical problems as per above. Recommendations: 1.Continue vancomycin 125 mg p.o. q.6 hours. Can add a probiotic including either lactobacillus and /or saccharomyces daily for few months. 2.Advanced diet and full liquids. Can advance slowly to GI soft diet. 3.Prior to discharge, check for C diff; once C diff negative, can discharge home. 4.Continue p.o. vancomycin for 2 weeks. WILNER/RYAN Voice ID: [id number] Report ID: [id number]
[2020-07-09 04:25] LABS: Absolute Lymphocytes (CBC) 0.4 K/uL (0.7-4.9); Basophils % 0.4 % (0-1.3); Hematocrit 29.9 % (39.6-49.0); MPV 8.2 fL (7.6-11.3); RBC Red Blood Cell Count 3.68 M/uL (4.33-5.43)
[2020-07-09 04:41] LABS: Albumin 2.1 g/dL (3.4-5.0); Bilirubin Total 0.3 mg/dL (0.2-1.0); Magnesium 2.3 mg/dL (1.8-2.4); Potassium 4.1 mmol/L (3.5-5.1); Protein, Total 5.2 g/dL (6.4-8.2)
[2020-07-09] MEDS: VANCOMYCIN ORAL SOLN 250 MG/5 ML OSYR PO SCH ×3 (05:38→17:02)
[2020-07-09] MEDS: LEVOTHYROXINE SOD 0.1 MG TAB PO SCH (05:40)
[2020-07-09] MEDS: PANTOPRAZOLE 40MG TABLET PO SCH (05:40)
[2020-07-09] MEDS: ACETAMINOPHEN 500 MG TAB PO PRN (05:43)
[2020-07-09] MEDS: VITAMIN D 1000 UNIT TAB PO SCH (09:00)
[2020-07-09] MEDS: FERROUS SULFATE 325 MG TAB PO SCH (09:07)
[2020-07-09] MEDS: CALCIUM CARBONATE CHEW 500MG TAB PO SCH (09:07)
[2020-07-09] MEDS: ASPIRIN 81 MG CHEWABLE TABLET PO SCH (09:07)
[2020-07-09] MEDS: LACTOBACILLUS/ACIDOPHILUS TAB PO SCH (09:07)
[2020-07-09] MEDS: FOLIC ACID 1 MG TABLET PO SCH (09:07)
[2020-07-09] MEDS: METOPROLOL XL 50 MG TAB PO SCH (09:07)
[2020-07-09] MEDS: AMIODARONE HCL 200 MG TAB PO SCH (09:07)
[2020-07-09] MEDS ORDERED: HYDRALAZINE HCL 20 MG/ML VIAL IV PRN (09:49)
--- NOTE | 2020-07-09 10:52 | P.PN ---
Subjective Date of Service: 07/09/20 Primary Care Provider: Dr. Wilkins, Nephrology Dr. Tsang Chief Complaint: Colitis Subjective: Improving (Patient reports feeling better, but continues with diarrhea every 1-2 hr, no nausea/vomiting. Mild abdominal discomfort) Review of Systems 10-point ROS is otherwise unremarkable Physical Examination - Vital Signs Temperature: 97.2 F Blood Pressure: 190/84 Pulse: 100 Respirations: 18 Pulse Ox (%): 95 - Physical Exam General: Alert, In no apparent distress HEENT: EOMI, Sclerae nonicteric Neck: Supple, No LAD Respiratory: Clear to auscultation bilaterally, Normal air movement (better inspiration today) Cardiovascular: Regular rate/rhythm, Normal S1 S2 Gastrointestinal: Soft and benign, Non-distended, Tenderness (Mild periumbilical) Musculoskeletal: No erythema, No tenderness Integumentary: No rashes Neurological: Normal speech, Normal affect - Studies Medications List Reviewed: Yes Assessment & Plan Physician Review Additional Text: Advanced camilo colitis with associated leukocytosis and dehydration Acute kidney injury on chronic kidney disease stage 4 Chronic diastolic congestive heart failure Chronic atrial fibrillation on anticoagulation therapy Hypertension COPD Gout Plan Advanced camilo colitis with associated leukocytosis and dehydration: CT shows advanced camilo colitis with associated stranding and associated luminal narrowing consistent with pseudomembranous colitis GI was consulted. Continue treatment for C. diff Positive for C.diff colitis, started PO Vanc 07/07. Stool studies including stool culture, O&P, leukocyte stain ordered. Will need to be C. diff negative before discharge home, recheck tomorrow Acute kidney injury on chronic kidney disease stage 4: seems prerenal, improved with IVF Nephrology consulted, holding lasix/spironolactone getting closer to baseline Chronic diastolic congestive heart failure: Last echocardiogram shows ejection fraction 77%. Appears stable at this time. Will continue to monitor patient's volume status closely. Hypertension: Holding home Lasix/spironolactone Will give IV hydralazine p.r.n. Chronic atrial fibrillation on anticoagulation therapy: Continue patient's Xarelto COPD: Nebulizer treatments as needed. Will continue home medications. Gout: continue patient's home medications. Dispo: anticipate dc in ~ 1-2 days Time Spent Managing Pts Care (In Minutes): 35
--- NOTE | 2020-07-09 11:47 | P.PN ---
Subjective Date of Service: 07/09/20 Primary Care Provider: Dr. Wilkins, Nephrology Dr. Tsang Chief Complaint: Colitis Subjective A 64 Y/o man with PMHx of CKD IIIb/IV baseline Cr 2.2-2.4 , COPD, CHF on lasix and aldacotne , HTN , Afib and HX of remote Lunf Ca Pt presented with persistent diarrhea Today still have diarrhea BP elevated , will resume alactone Cr at baseline cont to hold lasix Physical exam general: AAOX3, NAD , Neck; Supple, No elevated JVD hear: RRR, normal S1,2 no murmur or rub Chest: CTAB, no rlaes or wheezes Abdomen: Soft , Nt Extremities trace edema SHARITA oc CKD IIIb/IV rsolved due to diarrhea Cr baseline 2.2-2.4 , CT scan no hydro will cont to hold lasix and resume aldactone C.diff diarrhea and collitis off IVF encourage PO intake COPD cont inhalers HX of CHF trace LE edema cont to hold lasix resume aldactone complex renal cysts W/U as an OP Physical Examination - Vital Signs Temperature: 97.2 F Blood Pressure: 190/84 Pulse: 100 Respirations: 18 Pulse Ox (%): 95 - Studies Medications List Reviewed: Yes
[2020-07-09] MEDS: SPIRONOLACTONE 25 MG TABLET PO SCH (12:11)
[2020-07-09] MEDS: METRONIDAZOLE 500mg IVPB 500 MG/100 ML BAG IV SCH (17:02)
[2020-07-09] MEDS: RIVAROXABAN 15 MG TABLET PO SCH (17:02)
[2020-07-09] MEDS: allopurinoL 100 MG TAB PO SCH (20:04)
[2020-07-09] MEDS: CYCLOBENZAPRINE 10 MG TAB PO SCH (20:04)
[2020-07-10] MEDS: ACETAMINOPHEN 500 MG TAB PO PRN (00:48)
[2020-07-10] MEDS: HYDROCODONE/APAP 7.5/325 MG TAB PO PRN ×4 (03:45→21:14)
[2020-07-10] MEDS: ONDANSETRON 4 MG/2 ML VIAL IV PRN ×3 (03:51→20:38)
[2020-07-10] MEDS: LEVOTHYROXINE SOD 0.1 MG TAB PO SCH (05:35)
[2020-07-10] MEDS: VANCOMYCIN ORAL SOLN 250 MG/5 ML OSYR PO SCH ×4 (05:35→17:00)
[2020-07-10 05:42] LABS: Absolute Lymphocytes (CBC) 0.4 K/uL (0.7-4.9); Basophils % 0.5 % (0-1.3); Hematocrit 31.3 % (39.6-49.0); Lymphocytes % 4.2 % (15.3-44.8); MPV 8.7 fL (7.6-11.3); RBC Red Blood Cell Count 3.84 M/uL (4.33-5.43)
[2020-07-10 05:43] LABS: Albumin 2.1 g/dL (3.4-5.0); Bilirubin Total 0.3 mg/dL (0.2-1.0); Potassium 3.7 mmol/L (3.5-5.1)
--- NOTE | 2020-07-10 08:57 | P.PN ---
Subjective Date of Service: 07/10/20 Primary Care Provider: Dr. Wilkins, Nephrology Dr. Tsang Chief Complaint: Colitis Subjective: Improving (Reports diarrhea every 2-3 hr, continues with nausea and lack of appetite, slight improvement in abdominal pain) Review of Systems 10-point ROS is otherwise unremarkable Physical Examination - Vital Signs Temperature: 96.9 F Blood Pressure: 165/77 Pulse: 90 Respirations: 18 Pulse Ox (%): 100 - Physical Exam General: Alert, In no apparent distress HEENT: Sclerae nonicteric Neck: Supple, No LAD Respiratory: Clear to auscultation bilaterally, Diminished (Slightly, at bases bilaterally) Cardiovascular: No edema, Regular rate/rhythm, Normal S1 S2 Gastrointestinal: Soft and benign, Non-distended, Tenderness (Mild, periumbilical) Musculoskeletal: No erythema, No tenderness Integumentary: No rashes Neurological: Normal speech, Normal affect - Studies Medications List Reviewed: Yes Assessment & Plan Physician Review Additional Text: Advanced C. Diff+ camilo colitis with associated leukocytosis and dehydration Hemoccult + stool Acute kidney injury on chronic kidney disease stage 4 Chronic diastolic congestive heart failure Chronic atrial fibrillation on anticoagulation therapy Hypertension COPD Gout Plan Advanced C. Diff+ camilo colitis with associated leukocytosis and dehydration CT shows advanced camilo colitis with associated stranding and associated luminal narrowing consistent with pseudomembranous colitis Positive for C.diff colitis, started PO Vanc 07/07. Added IV Flagyl 07/09 due to persistent diarrhea leukocytosis resolved GI was consulted, recommended repeat C. diff for negative result prior to discharge, added probiotics not eating very much, reports continued nausea and decreased to no appetite Hemoccult + stool likely in setting of colitis may benefit from repeat testing, and/or EGD/c-scope once he recovers from this acute infection hgb has been stable Acute kidney injury on chronic kidney disease stage 4: seems prerenal, improved with IVF, seems to be back to his baseline Nephrology consulted, holding lasix/spironolactone Chronic diastolic congestive heart failure: Last echocardiogram shows ejection fraction 77%. Appears stable at this time. Will continue to monitor patient's volume status closely. Hypertension: Holding home Lasix/spironolactone received IV hydralazine last night for elevated BP, pt states it made him feel "strange" and couldn't sleep. Chronic atrial fibrillation on anticoagulation therapy: Continue patient's Xarelto COPD: Nebulizer treatments as needed. Will continue home medications. Gout: continue patient's home medications. Dispo: still having frequent diarrhea and low PO intake, anticipate dc in ~1-2 days Time Spent Managing Pts Care (In Minutes): 30
[2020-07-10] MEDS: VITAMIN D 1000 UNIT TAB PO SCH (09:00)
[2020-07-10] MEDS ORDERED: POTASSIUM CL SA 10 MEQ TAB PO ONE (09:00)
[2020-07-10] MEDS: CALCIUM CARBONATE CHEW 500MG TAB PO SCH (09:10)
[2020-07-10] MEDS: ASPIRIN 81 MG CHEWABLE TABLET PO SCH (09:10)
[2020-07-10] MEDS: SPIRONOLACTONE 25 MG TABLET PO SCH (09:10)
[2020-07-10] MEDS: FERROUS SULFATE 325 MG TAB PO SCH (09:10)
[2020-07-10] MEDS: AMIODARONE HCL 200 MG TAB PO SCH (09:10)
[2020-07-10] MEDS: LACTOBACILLUS/ACIDOPHILUS TAB PO SCH (09:10)
[2020-07-10] MEDS: METRONIDAZOLE 500mg IVPB 500 MG/100 ML BAG IV SCH ×3 (09:11→16:23)
[2020-07-10] MEDS: FOLIC ACID 1 MG TABLET PO SCH (09:11)
[2020-07-10] MEDS: METOPROLOL XL 50 MG TAB PO SCH (09:11)
[2020-07-10] MEDS: CHOLESTYRAMINE/ASP 4 GM/PKT PO SCH ×2 (13:26→16:23)
[2020-07-10] MEDS: RIVAROXABAN 15 MG TABLET PO SCH (16:24)
--- NOTE | 2020-07-10 17:20 | P.PN ---
Subjective Date of Service: 07/10/20 Primary Care Provider: Dr. Wilkins, Nephrology Dr. Tsang Chief Complaint: C diff Colitis, diarrhea, N/V, general abdominal distention / pain, sepsis Subjective: No new changes (Still has diarrhea. On Vancomycin and Probiotics started.) Review of Systems General: Weakness, Malaise Gastrointestinal: Abdominal Pain, Diarrhea, Distention Physical Examination - Vital Signs Temperature: 96.8 F Blood Pressure: 141/71 Pulse: 73 Respirations: 18 Pulse Ox (%): 98 - Studies Medications List Reviewed: Yes Assessment And Plan - Current Problems (Diagnosis) (1) Clostridium difficile colitis Current Visit: Yes Status: Acute (2) Diarrhea Current Visit: Yes Status: Acute (3) Nausea & vomiting Current Visit: Yes Status: Acute (4) Abdominal distension Current Visit: Yes Status: Acute (5) Generalized abdominal pain Current Visit: Yes Status: Acute (6) Sepsis Current Visit: Yes Status: Acute (7) SHARITA (acute kidney injury) Current Visit: No Status: Acute - Plan REC: 1) continue Vancomycin 125 mg po qid 2) continue Probiotics (e.g. Lactobaccilus) 3) start Questran 2 packets po qhs or bid (keeping 3 hours away from other medications) Physician Review Additional Text: Advanced C. Diff+ camilo colitis with associated leukocytosis and dehydration Hemoccult + stool Acute kidney injury on chronic kidney disease stage 4 Chronic diastolic congestive heart failure Chronic atrial fibrillation on anticoagulation therapy Hypertension COPD Gout Plan Advanced C. Diff+ camilo colitis with associated leukocytosis and dehydration CT shows advanced camilo colitis with associated stranding and associated luminal narrowing consistent with pseudomembranous colitis Positive for C.diff colitis, started PO Vanc 07/07. Added IV Flagyl 07/09 due to persistent diarrhea leukocytosis resolved GI was consulted, recommended repeat C. diff for negative result prior to discharge, added probiotics not eating very much, reports continued nausea and decreased to no appetite Hemoccult + stool likely in setting of colitis may benefit from repeat testing, and/or EGD/c-scope once he recovers from this acute infection hgb has been stable Acute kidney injury on chronic kidney disease stage 4: seems prerenal, improved with IVF, seems to be back to his baseline Nephrology consulted, holding lasix/spironolactone Chronic diastolic congestive heart failure: Last echocardiogram shows ejection fraction 77%. Appears stable at this time. Will continue to monitor patient's volume status closely. Hypertension: Holding home Lasix/spironolactone received IV hydralazine last night for elevated BP, pt states it made him feel "strange" and couldn't sleep. Chronic atrial fibrillation on anticoagulation therapy: Continue patient's Xarelto COPD: Nebulizer treatments as needed. Will continue home medications. Gout: continue patient's home medications. Dispo: still having frequent diarrhea and low PO intake, anticipate dc in ~1-2 days
[2020-07-10 19:28] LABS: C.diff Antigen/Toxin AG NEG:TOX NEG (NEG : NEG)
[2020-07-10] MEDS: CYCLOBENZAPRINE 10 MG TAB PO SCH (21:11)
[2020-07-10] MEDS: allopurinoL 100 MG TAB PO SCH (21:14)
[2020-07-10] MEDS ORDERED: METOPROLOL XL 25 MG TAB PO ONE (23:45)
[2020-07-11] MEDS: METRONIDAZOLE 500mg IVPB 500 MG/100 ML BAG IV SCH ×3 (00:21→16:00)
[2020-07-11] MEDS: VANCOMYCIN ORAL SOLN 250 MG/5 ML OSYR PO SCH ×4 (00:21→17:24)
[2020-07-11 04:15] LABS: Absolute Lymphocytes (CBC) 0.4 K/uL (0.7-4.9); Basophils % 0.5 % (0-1.3); Hematocrit 30.7 % (39.6-49.0); MPV 8.9 fL (7.6-11.3); RBC Red Blood Cell Count 3.79 M/uL (4.33-5.43)
[2020-07-11 04:23] LABS: Magnesium 1.9 mg/dL (1.8-2.4); Potassium 4.2 mmol/L (3.5-5.1)
[2020-07-11] MEDS: LEVOTHYROXINE SOD 0.1 MG TAB PO SCH (05:17)
[2020-07-11] MEDS: ONDANSETRON 4 MG/2 ML VIAL IV PRN ×2 (09:00→19:52)
[2020-07-11] MEDS: CHOLESTYRAMINE/ASP 4 GM/PKT PO SCH ×2 (09:00→16:15)
[2020-07-11] MEDS: CALCIUM CARBONATE CHEW 500MG TAB PO SCH (09:37)
[2020-07-11] MEDS: FOLIC ACID 1 MG TABLET PO SCH (09:37)
[2020-07-11] MEDS: FERROUS SULFATE 325 MG TAB PO SCH (09:37)
[2020-07-11] MEDS: METOPROLOL XL 50 MG TAB PO SCH ×2 (09:37→21:40)
[2020-07-11] MEDS: ASPIRIN 81 MG CHEWABLE TABLET PO SCH (09:38)
[2020-07-11] MEDS: AMIODARONE HCL 200 MG TAB PO SCH (09:38)
[2020-07-11] MEDS: LACTOBACILLUS/ACIDOPHILUS TAB PO SCH (09:38)
[2020-07-11] MEDS: SPIRONOLACTONE 25 MG TABLET PO SCH (09:38)
[2020-07-11] MEDS: VITAMIN D 1000 UNIT TAB PO SCH (09:39)
--- NOTE | 2020-07-11 09:50 | PN ---
Date of Progress Note: 07/10/2020 Chief Complaint: Elevated BUN and creatinine. Subjective: The patient has history of chronic kidney disease stage 3B/4, baseline creatinine of 2.2 and 2.4. The patient has history of congestive heart failure, started on Lasix and Aldactone. He is admitted to the hospital because of persistent diarrhea. Blood pressure was elevated. The patient was resumed on Aldactone. Creatinine level is at baseline. Currently, Lasix is on hold because of diarrhea. Review of Systems: Denies PND or orthopnea. Physical Examination: Lungs: Diminished breath sounds at bases. Heart: S1 and S2. ABDOMEN: Soft. Benign. Extremities: Trace edema. Impression And Plan: 1. Acute kidney injury on chronic kidney disease. Lasix on hold. Continue mild hydration. CT scan showed no hydronephrosis. There is no evidence of rhabdomyolysis and obstructive uropathy. 2. Chronic cardiorenal syndrome. Continue Aldactone. Monitor electrolytes. 3. Clostridium difficile diarrhea and colitis. Off IV fluids. Encourage p.o. intake and monitor electrolytes and renal function. 4. Complex renal cyst. The patient will follow up outpatient with Urology. I spent total 36 min including 25 min to coordinate care plan. ABILIO/RYAN Voice ID: [id number] Report ID: [id number] MOON
--- NOTE | 2020-07-11 12:44 | P.PN ---
Subjective Date of Service: 07/11/20 Primary Care Provider: Dr. Wilkins, Nephrology Dr. Tsang Chief Complaint: C diff Colitis, diarrhea, N/V, general abdominal distention / pain, sepsis Patient reports 4-5 bowel movements since this morning. He describes small quantity mucoid stools. He also reports nausea. Physical Examination - Vital Signs Temperature: 97.1 F Blood Pressure: 140/75 Pulse: 80 Respirations: 16 Pulse Ox (%): 99 - Physical Exam General: Alert, In no apparent distress, Oriented x3 HEENT: Mucous membr. moist/pink Neck: Supple Respiratory: Clear to auscultation bilaterally, Normal air movement Cardiovascular: No edema, Regular rate/rhythm, Normal S1 S2 Gastrointestinal: Normal bowel sounds, Soft and benign, Non-distended, No tenderness Musculoskeletal: No swelling, No erythema Integumentary: No rashes Neurological: Normal strength at 5/5 x4 extr - Studies Medications List Reviewed: Yes Assessment And Plan Physician Review Additional Text: Advanced C. Diff+ camilo colitis with associated leukocytosis and dehydration Hemoccult + stool Acute kidney injury on chronic kidney disease stage 4 Chronic diastolic congestive heart failure Chronic atrial fibrillation on anticoagulation therapy Hypertension COPD Gout Plan Advanced C. Diff+ camilo colitis with associated leukocytosis and dehydration -Continue oral vancomycin and IV Flagyl. -encouraged oral intake. -GI input appreciated. Hemoccult + stool -likely secondary to colitis -hgb has been stable Acute kidney injury on chronic kidney disease stage 4: -likely prerenal, improved with IVF, -now at baseline. -nephrology input appreciated Chronic diastolic congestive heart failure: Last echocardiogram shows ejection fraction 77%. Stable without acute exacerbation. Lasix is on hold due to diarrhea. Hypertension: Lasix/spironolactone on hold. Start amlodipine to control blood pressure. Chronic atrial fibrillation on anticoagulation therapy: Continue patient's Xarelto COPD: Stable. Nebulizer treatments as needed. Will continue home medications. Gout: continue patient's home medications.
[2020-07-11] MEDS: IPRATROPIUM BROM 0.5MG/2.5ML NEB PRN (13:41)
[2020-07-11] MEDS: ALBUTEROL 2.5 MG/3 ML NEB SOL NEB PRN (13:41)
[2020-07-11] MEDS: HYDROCODONE/APAP 7.5/325 MG TAB PO PRN (13:59)
--- NOTE | 2020-07-11 14:46 | PN ---
Date of Progress Note: 07/11/2020 Subjective: The patient was admitted with gastroenteritis, acute kidney injury on chronic kidney disease. The patient's after hydration kidney function started improving. Physical Examination: Vital Signs: When I saw the patient, blood pressure 140/75, pulse of 80, afebrile. The patient had good urine output. Chest: Wheezing bilateral. Heart: S1, S2. Systolic murmur. Abdomen: Soft, nontender. Extremities: No edema. Neurologic: Alert. Nonfocal. Laboratory Data: Sodium 138, potassium 4.2, bicarb 21, BUN 38, creatinine 1.7, GFR 38, calcium 8.2, magnesium 1.9. Current Medications: The patient on its include; 1. Aspirin. 2. Flagyl. 3. Vancomycin 125 q.6. 4. Albuterol. 5. Calcium carbonate. 6. Xarelto. 7. Metoprolol. 8. Spironolactone. Assessment And Plan: 1. Acute kidney injury on advanced chronic kidney disease, looked to me still on the dry side. I am going to hydrate the patient gently and we will follow up. 2. Hypertension, controlled, optimal. Continue current medication. 3. Hypomagnesemia. We will supplement. 4. Chronic obstructive pulmonary disease. Continue current treatment. We will give nebulizer now. 5. Gastroenteritis, Clostridium difficile. Adjust vancomycin dose and we will follow up with the primary and GI. Case discussed with the patient, verbalized understanding. Time spent coordinating the care, placing order, csod-tn-[id number] care with the patient, and discussing with other consult and hospitalist 35 minutes. time spend to coordinate the care , speaking with other Physician and team staff , face to face with the patient and placing order 35 min HARPAL Voice ID: [id number] Report ID: [id number] MOON
[2020-07-11] MEDS ORDERED: MAGNESIUM SULFATE 1 gm IVPB 1 GM/100 ML BAG IV ONE (15:00)
[2020-07-11] MEDS ORDERED: ALBUTEROL 2.5 MG/3 ML NEB SOL NEB ONE (15:00)
[2020-07-11] MEDS ORDERED: NA CHLORIDE 0.9% 300 ML IV SCH (15:00)
[2020-07-11] MEDS: RIVAROXABAN 15 MG TABLET PO SCH (16:16)
[2020-07-11] MEDS: allopurinoL 100 MG TAB PO SCH (21:38)
[2020-07-11] MEDS: CYCLOBENZAPRINE 10 MG TAB PO SCH (21:39)
[2020-07-12] MEDS: METRONIDAZOLE 500mg IVPB 500 MG/100 ML BAG IV SCH ×3 (00:12→17:19)
[2020-07-12] MEDS: VANCOMYCIN ORAL SOLN 250 MG/5 ML OSYR PO SCH ×4 (00:12→17:22)
[2020-07-12] MEDS: LEVOTHYROXINE SOD 0.1 MG TAB PO SCH (06:04)
[2020-07-12] MEDS: ALBUTEROL 2.5 MG/3 ML NEB SOL NEB PRN (07:57)
[2020-07-12] MEDS: IPRATROPIUM BROM 0.5MG/2.5ML NEB PRN (07:57)
[2020-07-12] MEDS: ONDANSETRON 4 MG/2 ML VIAL IV PRN (08:53)
[2020-07-12] MEDS: FERROUS SULFATE 325 MG TAB PO SCH (08:56)
[2020-07-12] MEDS: LACTOBACILLUS/ACIDOPHILUS TAB PO SCH (08:56)
[2020-07-12] MEDS: FOLIC ACID 1 MG TABLET PO SCH (08:56)
[2020-07-12] MEDS: AMIODARONE HCL 200 MG TAB PO SCH (08:56)
[2020-07-12] MEDS: CALCIUM CARBONATE CHEW 500MG TAB PO SCH (08:57)
[2020-07-12] MEDS: CHOLESTYRAMINE/ASP 4 GM/PKT PO SCH ×2 (08:57→17:20)
[2020-07-12] MEDS: METOPROLOL XL 50 MG TAB PO SCH (08:57)
[2020-07-12] MEDS: SPIRONOLACTONE 25 MG TABLET PO SCH (08:57)
[2020-07-12] MEDS: ASPIRIN 81 MG CHEWABLE TABLET PO SCH (08:58)
[2020-07-12] MEDS: VITAMIN D 1000 UNIT TAB PO SCH (08:58)
[2020-07-12 08:59] VITALS: BP 147/75
[2020-07-12 10:38] VITALS: O2SAT 100
[2020-07-12 10:53] VITALS: TEMP 97.6
[2020-07-12] MEDS: HYDROCODONE/APAP 7.5/325 MG TAB PO PRN (12:32)
--- NOTE | 2020-07-12 12:43 | P.DS ---
Admission Date: 07/06/20 Discharge Date: 07/12/20 Primary Care Provider: Dr. Wilkins, Nephrology Dr. Tsang Disposition: OR HOME/HOME HEALTH CARE Discharge Condition: FAIR Reason for Admission: C diff Colitis, diarrhea, N/V, general abdominal distention / pain, sepsis - Problems (1) Acute worsening of stage 3 chronic kidney disease Current Visit: Yes Status: Acute (2) Clostridium difficile colitis Current Visit: Yes Status: Acute (3) Atrial fibrillation Current Visit: No Status: Chronic Qualifiers: Atrial fibrillation type: chronic (4) Chronic anticoagulation Current Visit: No Status: Chronic Brief History of Present Illness: 64-year-old gentleman with a history of chronic atrial fibrillation, chronic kidney disease, chronic systolic heart failure presented to the emergency department with a complaint of diarrhea and abdominal pain of [address] abdomen and pelvis done in the ED suggested the presence of camilo colitis. Blood work showed acute on chronic renal failure. Patient was admitted for further management. Hospital Course: Patient admitted to the medical floor and started on antibiotic therapy. Stool studies were performed and patient noted to be positive for C. diff. GI was consult and patient treated for C. diff infection with oral vancomycin. He was also hydrated for the acute renal failure. The patient's serum creatinine improved to baseline. Nephrology assisted with management of the acute renal failure. He was on Lasix therapy and Aldactone which were held. Aldactone was resumed later during the hospital stay. He continued to have frequent diarrhea but of small quantities but overall diarrhea has improved, abdominal pain resolved. He has severe leukocytosis which also resolved with the treatment. Patient has clinically improved and deemed stable for discharge. At this point nephrology recommending to half his dose of lasix and continue to hold aldactone on discharge. Patient is prescribed 2 weeks off oral vancomycin therapy. Vital Signs/Physical Exam: Temp Pulse Resp BP Pulse Ox 97.6 F 80 20 147/75 H 100 07/12/20 08:00 07/12/20 08:57 07/12/20 12:32 07/12/20 08:57 07/12/20 12:32 General: Alert, In no apparent distress, Oriented x3 HEENT: Mucous membr. moist/pink Neck: Supple, JVD not distended Respiratory: Clear to auscultation bilaterally, Normal air movement Cardiovascular: No edema, Regular rate/rhythm, Normal S1 S2, Edema (Lower extremities.) Capillary refill: <2 Seconds Gastrointestinal: Normal bowel sounds, Non-distended, No tenderness Neurological: Other (Nonfocal) Laboratory Data at Discharge: WBC 9.0 K/uL (4.3-10.9) 07/11/20 03:17 Hgb 10.0 g/dL (13.6-17.9) L 07/11/20 03:17 Hct 30.7 % (39.6-49.0) L 07/11/20 03:17 Plt Count 334 K/uL (152-406) 07/11/20 03:17 Sodium 138 mmol/L (136-145) 07/11/20 03:17 Potassium 4.2 mmol/L (3.5-5.1) 07/11/20 03:17 BUN 38 mg/dL (7-18) H 07/11/20 03:17 Creatinine 1.78 mg/dL (0.55-1.3) H 07/11/20 03:17 Glucose 92 mg/dL (74-106) 07/11/20 03:17 Magnesium 1.9 mg/dL (1.8-2.4) 07/11/20 03:17 Total Bilirubin 0.3 mg/dL (0.2-1.0) 07/10/20 05:05 AST 29 U/L (15-37) 07/10/20 05:05 ALT 23 U/L (12-78) 07/10/20 05:05 Alkaline Phosphatase 59 U/L (45-117) 07/10/20 05:05 Lipase 107 U/L (73-393) 07/06/20 19:40 Home Medications: Acetaminophen/Diphenhydramine [Tylenol Pm Ex-Strength Caplet] 2 tab PO BEDTIME PRN 07/07/20 Albuterol Sulfate [Proair Hfa] 1 puff IH BIDP PRN 07/07/20 Amiodarone HCl [Cordarone*] 200 mg PO DAILY 07/07/20 Aspirin Chewable [Aspirin Chewable*] 81 mg PO DAILY 07/07/20 Calcium Carbonate [Tums Regular*] 1,000 mg PO DAILY 07/07/20 Cholecalciferol (Vitamin D3) [Vitamin D3] 2,000 unit PO DAILY 07/07/20 Cyclobenzaprine [Flexeril*] 5 mg PO BEDTIME 07/07/20 Ferrous Sulfate [Ferrous Sulfate*] 325 mg PO DAILY 07/07/20 Fluticasone/Umeclidin/Vilanter [Trelegy Ellipta 100-62.5-25] 1 puff IH DAILY 07/07/20 Folic Acid 3 mg PO DAILY 07/07/20 Furosemide [Lasix*] 40 mg PO DAILY 07/07/20 Gabapentin [Neurontin*] 300 mg PO BEDTIME PRN 07/07/20 Ipratropium/Albuterol Sulfate [Iprat-Albut 0.5-3(2.5) mg/3 ml] 2 puff IH BIDP PRN 07/07/20 LORazepam [Ativan*] 0.5 mg PO BEDTIME PRN 07/07/20 Levothyroxine [Synthroid*] 100 mcg PO [id number] 07/07/20 Magnesium Oxide [Magnesium] 400 mg PO DAILY 07/07/20 Metoprolol Succinate [Toprol Xl*] 50 mg PO BID 07/07/20 Multivitamin with Minerals [One Daily Plus Minerals] 1 tab PO DAILY 07/07/20 Omeprazole [Prilosec] 40 mg PO DAILY 07/07/20 Rivaroxaban [Xarelto*] 15 mg PO DAILY 07/07/20 Spironolactone [Aldactone*] 25 mg PO DAILY 07/07/20 allopurinoL [Zyloprim*] 100 mg PO BEDTIME 07/07/20 Cholestyramine/Asp [Questran Light*] 8 gm PO BIDWM #28 packet 07/12/20 Vancomycin Oral Soln [Vancocin HCl*] 5 ml PO Q6HR #280 ml 07/12/20 New Medications: Vancomycin Oral Soln [Vancocin HCl*] 5 ml PO Q6HR #280 ml Cholestyramine/Asp [Questran Light*] 8 gm PO BIDWM #28 packet Diet: AHA Activity: Ad rg Followup: Stepan Bradshaw MD [ACTIVE - CAN ADMIT] - 1-2 Weeks Time spent managing pt's care (in minutes): 38
--- NOTE | 2020-07-12 13:49 | P.PN ---
Subjective Date of Service: 07/12/20 Primary Care Provider: Dr. Wilkins, Nephrology Dr. Tsang Chief Complaint: C diff Colitis, diarrhea, N/V, general abdominal distention / pain, sepsis Subjective A 64 Y/o man with PMHx of CKD IIIb/IV baseline Cr 2.2-2.4 , COPD, CHF on lasix and aldacotne , HTN , Afib and HX of remote Lunf Ca Pt presented with persistent diarrhea Today diarrhea improved stable VS cr stable discharge plan as per primary team Physical exam general: AAOX3, NAD , Neck; Supple, No elevated JVD hear: RRR, normal S1,2 no murmur or rub Chest: CTAB, no rlaes or wheezes Abdomen: Soft , Nt Extremities trace edema SHARITA oc CKD IIIb/IV rsolved due to diarrhea Cr baseline 2.2-2.4 , CT scan no hydro will cont to hold lasix cnt aldactone C.diff diarrhea and collitis on PO vanco and IV flagyl encourage PO intake COPD cont inhalers HX of CHF trace LE edema cont to hold lasix cont aldactone complex renal cysts W/U as an OP Physical Examination - Vital Signs Temperature: 97.6 F Blood Pressure: 147/75 Pulse: 80 Respirations: 20 Pulse Ox (%): 100 - Studies Medications List Reviewed: Yes
--- NOTE | 2020-07-12 16:32 | P.PN ---
Subjective Date of Service: 07/12/20 Primary Care Provider: Dr. Wilkins, Nephrology Dr. Tsang Chief Complaint: C diff Colitis, diarrhea, N/V, general abdominal distention / pain, sepsis Subjective: Improving (Much less diarrhea with start of Questran po therapy. He continues on Vancomycin qid and Probiotics. Tolerated FLs, not so well on GI soft diet he reports.) Review of Systems 10-point ROS is otherwise unremarkable General: Weakness, Malaise Gastrointestinal: Nausea, Abdominal Pain, Diarrhea (Improved. ) Physical Examination - Vital Signs Temperature: 97.6 F Blood Pressure: 147/75 Pulse: 80 Respirations: 20 Pulse Ox (%): 100 - Physical Exam General: Alert, In no apparent distress, Oriented x3, Cooperative, Cachectic, Disheveled HEENT: Atraumatic, Normocephalic, PERRLA, EOMI Neck: Supple Respiratory: Normal air movement Cardiovascular: Normal pulses Gastrointestinal: Distended (mild with general tympany), Tenderness (mild) Neurological: Normal speech - Studies Medications List Reviewed: Yes Assessment And Plan - Current Problems (Diagnosis) (1) Clostridium difficile colitis Current Visit: Yes Status: Acute (2) Diarrhea Current Visit: Yes Status: Acute Comment: Improved. (3) Nausea & vomiting Current Visit: Yes Status: Acute Comment: Improved. (4) Abdominal distension Current Visit: Yes Status: Acute Comment: Improved. (5) Generalized abdominal pain Current Visit: Yes Status: Acute Comment: Improved. (6) Sepsis Current Visit: Yes Status: Acute Comment: Improved. WBC from 23 to 9. (7) SHARITA (acute kidney injury) Current Visit: No Status: Acute Comment: Improved. - Plan REC: 1) continue Vancomycin 125 mg po qid 2) continue Probiotics (e.g. Lactobaccilus) 3) continue Questran 2 packets po qhs or bid (keeping 3 hours away from other medications) 4) FLs until stronger for GI soft Physician Review Additional Text: Advanced C. Diff+ camilo colitis with associated leukocytosis and dehydration Hemoccult + stool Acute kidney injury on chronic kidney disease stage 4 Chronic diastolic congestive heart failure Chronic atrial fibrillation on anticoagulation therapy Hypertension COPD Gout Plan Advanced C. Diff+ camilo colitis with associated leukocytosis and dehydration -Continue oral vancomycin and IV Flagyl. -encouraged oral intake. -GI input appreciated. Hemoccult + stool -likely secondary to colitis -hgb has been stable Acute kidney injury on chronic kidney disease stage 4: -likely prerenal, improved with IVF, -now at baseline. -nephrology input appreciated Chronic diastolic congestive heart failure: Last echocardiogram shows ejection fraction 77%. Stable without acute exacerbation. Lasix is on hold due to diarrhea. Hypertension: Lasix/spironolactone on hold. Start amlodipine to control blood pressure. Chronic atrial fibrillation on anticoagulation therapy: Continue patient's Xarelto COPD: Stable. Nebulizer treatments as needed. Will continue home medications. Gout: continue patient's home medications.
[2020-07-12] MEDS: RIVAROXABAN 15 MG TABLET PO SCH (17:21)
== END 2020-07-12 18:11 | disposition home or self-care (01) | DRG 872 ==
LOC: ER 18:54 → 2ND 23:21
PROVIDERS: ADMIT Emergency Medicine; ATTEND Internal Medicine
DX: A41.9 Sepsis, unspecified organism (principal); I50.32 Chronic diastolic (congestive) heart failure; I13.0 Hypertensive heart and chronic kidney disease with heart failure and stage 1 through stage 4 chronic kidney disease, or unspecified chronic kidney disease; N18.4 Chronic kidney disease, stage 4 (severe); I48.20 Chronic atrial fibrillation, unspecified; N17.9 Acute kidney failure, unspecified; A04.72 Enterocolitis due to Clostridium difficile, not specified as recurrent; K52.9 Noninfective gastroenteritis and colitis, unspecified; E83.42 Hypomagnesemia; E86.0 Dehydration; N28.1 Cyst of kidney, acquired; J44.9 Chronic obstructive pulmonary disease, unspecified; M10.9 Gout, unspecified; R00.0 Tachycardia, unspecified; Z85.118 Personal history of other malignant neoplasm of bronchus and lung; Z90.49 Acquired absence of other specified parts of digestive tract; Z79.01 Long term (current) use of anticoagulants; Z87.891 Personal history of nicotine dependence; Z79.82 Long term (current) use of aspirin; Z79.890 Hormone replacement therapy; Z79.899 Other long term (current) drug therapy; Z88.8 Allergy status to other drugs, medicaments and biological substances; Z20.828 Contact with and (suspected) exposure to other viral communicable diseases
CPT/HCPCS: 36415; 74176; 80048; 80053; 80076; 82274; 83605; 83690; 83735; 85025; 87040; 87045; 87046; 87177; 87209; 87324; 87449; 89055; 94640; 96361; 96374; 99285; J0360; J0744; J2405; J3475; J7030; J7040; J7050; U0002

== ENCOUNTER 2020-07-25 10:14 | Inpatient (IN) | payer BC, OTHER ==
--- OUTSIDE RECORDS SUMMARY | 2020-07-25 10:17 | XMS REPORT | Clinical Summary ---
:1955 Author Organization [facility] Address [address] [place] [address] Care Team Providers Name Role Phone MD Claudette Primary Care Provider Allergies No Known Active Allergies Medications Medication Sig Dispensed Refills Start [...] Coordination Note Referring physician is Valery Bucio [address] [place] [id number] P: [phone] F: [phone] Problem Noted Date Pneumothorax 10/27/2018 Malignant neoplasm [...] Not on file Last Filed Vital Signs Not on file Plan of Treatment Health Maintenance Due Date Last Done Comments COLONOSCOPY SCREENING 2003 SHINGLES VACCINES (#1) 2003 65+ PNEUMOCOCCAL VACCINE (1 of 1 - PPSV23) 2018 INFLUENZA VACCINE 07/04/2020 Implants Implanted Type Area Wire Strander Device Shelf Model / Identifier Expiration Serial / Date Lot Hemostat Absrbl Oxidized Knttd 3x4in Cllos Surgicel Nu -Knit - [id number] Surgical N/A: N/A [employer] US-EH 03/02/2022 1943 / Implanted: 07/15/2017 at [facility] (Quantity not on file) Implants; / Expanders; [id number] Extenders; Surgical Wires Hemostat Absrbl Oxidized Knttd 3x4in Cllos Surgicel Nu -Knit - [id number] Surgical N/A: N/A [facility] 03/02/2022 194 / Implanted: 07/15/2017 at [facility] (Quantity not on file) Implants; / Expanders; [id number] Extenders; Surgical Wires Hemostat Absrbl Oxidized Knttd 3x4in Cllos Surgicel Nu -Knit - [id number] Surgical N/A: N/A [facility] 03/02/2022 194 / Implanted: 07/15/2017 at [facility] (Quantity not on file) Implants; / Expanders; [id number] Extenders; Surgical Wires Hemostat Absrbl Oxidized Knttd 3x4in Cllos Surgicel Nu -Knit - [id number] Surgical N/A: N/A [facility] 03/02/2022 194 / Implanted: 07/15/2017 at [facility] (Quantity not on file) Implants; / Expanders; [id number] Extenders; Surgical Wires Hemostat Absrbl Oxidized Knttd 3x4in Cllos Surgicel Nu -Knit - [id number] Surgical N/A: N/A [facility] 03/02/2022 194 / Implanted: 07/15/2017 at [facility] (Quantity not on file) Implants; / Expanders; [id number] Extenders; Surgical Wires Kit Selnt Plrl Air Leak 4ml Strl Progel - [id number] Surgical N/A: N/A [employer] 07/04/2018 [id number] / Implanted: Qty: 1 on 07/15/2017 by Blu Lay MD at [facility] Implants; / Expanders; Extenders; Surgical Wires Matrix Hmstc Floseal 10ml W/ Humn F2 - [id number] Surgical N/A: N/A Natalya AXTRICIA [id number] / Implanted: 07/15/2017 at [facility] (Quantity not on file) Imp lants; BIOSCIENCE / Expanders; Extenders; Surgical Wires Kit Selnt Plrl Air Leak 4ml Strl Progel - [id number] Surgical N/A: N/A [employer] [id number] / Implanted: 07/15/2017 at [facility] (Quantity not on file) Implants; / Expanders; Extenders; Surgical Wires Results Not on fileafter 07/25/2019 Insurance Payer Benefit Plan / Subscriber ID Effective Dates Phone Addre ss Type Group BCBS [facility] [employer] [id number] 2017-Present PPO MEDICARE MEDICARE PART A [id number] 2018-Present [place], [place] Medicare AND B Advance Directives For more information, please contact: [phone] Type Date 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
[2020-07-25] MEDS ORDERED: ALBUTEROL 2.5 MG/3 ML NEB SOL ONE (11:06)
[2020-07-25] MEDS ORDERED: IPRATROPIUM BROM 0.5MG/2.5ML ONE (11:06)
[2020-07-25 11:22] LABS: Protime INR 2.09
[2020-07-25 11:26] LABS: Absolute Lymphocytes (CBC) 0.3 K/uL (0.7-4.9); Basophils % 0.7 % (0-1.3); Hematocrit 30.5 % (39.6-49.0); Lymphocytes % 3.5 % (15.3-44.8); RBC Red Blood Cell Count 3.76 M/uL (4.33-5.43)
[2020-07-25 11:32] LABS: Magnesium 2.1 mg/dL (1.8-2.4); Potassium 3.4 mmol/L (3.5-5.1)
--- NOTE | 2020-07-25 11:43 | RAD REPORT ---
EXAM DESCRIPTION: RAD - Chest Single View - 07/25/2020 11:08 am CLINICAL HISTORY: DYSPNEA, shortness of breath for 3 days COMPARISON: CT study December 27, 2019, portable chest November 2019 TECHNIQUE: AP portable chest image was obtained 07/25/2020 11:08 am . FINDINGS: Prominent fibro emphysematous changes are present throughout both lung posey with the rig ht hemithorax enlarged relative to the left. Interstitial pattern is increased from the Bee chest film and also apparently increased from the CT study. No focal consolidation or mass identifiable. H eart and vasculature are normal. No pneumothorax. Bilateral costophrenic angle blunting is present. P atient may have a small right pleural effusion. No acute bony abnormality seen. No acute aortic findi ngs suspected. IMPRESSION: Increased interstitial pattern primarily in the right lung field with suspected small ri ght pleural effusion. Acute interstitial pneumonia or interstitial edema suspected.
--- NOTE | 2020-07-25 12:15 | EKG ---
Test Date: 2020-07-25 Test Time: 12:09:46 Mechanical Apprentice: JASSON MEASUREMENT RESULTS: Intervals: Rate: 111 ND: 140 QRSD: 126 QT: 382 QTc: 519 [place]: P: 70 ND: 140 QRS: 19 T: 52 INTERPRETIVE STATEMENTS: Sinus tachycardia Right bundle branch block Septal infarct, age undetermined Abnormal ECG Compared to ECG 11/12/2019 23:17:49 Right bundle-branch block now present Myocardial infarct finding still present Electronically Signed On 07-25-20 12:14:53 CDT by Nasir Bailey
--- NOTE | 2020-07-25 12:24 | EDPHYS ---
Physician Documentation [facility] Name: Angelo Narvaez Age: 64 yrs Sex: Male : 1955 Arrival Date: 07/25/2020 Time: 10:15 Bed 4 Private MD: ED Physician Nick Vegas HPI: 07/25 13:11 This 64 yrs old Male presents to ER via Wheelchair with complaints of kb Breathing Difficulty. 13:11 The patient has shortness of breath at rest, with light activity. Onset: The kb symptoms/episode began/occurred 3 day(s) ago. Duration: The symptoms are chronic. The patient's shortness of breath is aggravated by exertion, light activity, is alleviated by rest, application of supplemental oxygen. Associated signs and symptoms: Pertinent positives: productive cough. Severity of symptoms: At their worst the symptoms were moderate in the emergency department the symptoms are unchanged. The patient has experienced similar episodes in the past. The patient has not recently seen a physician. Pt reports he has been short of breath for 3 days. States he normally uses oxygen at night and has been having to use it during the day as well lately. States he is unable to go up the stairs like he normally does. Has been monitoring Sat at home and it was 84% on room air prior to arrival. Historical: - Allergies: 10:42 Prednisone; hb - Home Meds: 11:15 acetaminophen 500 mg Oral tab as needed [Active]; amiodarone 200 mg Oral tab 1 tab once tw2 daily [Active]; aspirin 81 mg Oral chew 1 tab once daily [Active]; Calcium Carbonate 750mg Oral daily [Active]; D3 1000 units daily [Active]; dexamethasone 2 mg Oral tab [Active]; Flexeril 5 mg Oral tab as needed [Active]; folic acid 1 mg Oral tab 1 tab once daily [Active]; gabapentin 300 mg Oral cap as needed [Active]; ipratropium-albuterol 0.5 mg-3 mg(2.5 mg base)/3 mL Inhl nebu [Active]; Iron CR 65 mg daily Oral [Active]; Lasix 40 mg Oral tab 1 tab [Active]; levothyroxine 100 mcg tab 1 tab once daily [Active]; lorazepam 0.5 mg Oral tab [Active]; magnesium oxide 400 mg Oral cap 400 mg daily [Active]; metoprolol succinate 50 mg Oral Tb24 1 tab nightly [Active]; ProAir HFA 90 mcg/actuation inhalation HFAA [Active]; multivitamin Oral cap daily [Active]; simvastatin 20 mg Oral tab 1 tab once daily [Active]; spironolactone 25 mg Oral tab 0.5 tab nightly [Active]; Trelege 1 puff [Active]; Xarelto 15 mg Oral tab nightly [Active]; - PMHx: 11:15 Atrial Fib; kidney disease; Rheumatoid Arthritis; Pneumothorax; Lung Cancer; HTN; Gout; tw2 COPD; C-DIFF; - PSHx: 11:15 Appendectomy; tw2 11:47 Lobectomy, Left upper lobe; tw2 - Immunization history:: Adult Immunizations up to date. - Social history:: Smoking status: Patient denies any tobacco usage or history of. ROS: 13:10 Constitutional: Negative for fever, chills, and weight loss, Cardiovascular: Negative kb for chest pain, palpitations, and edema, Abdomen/GI: Negative for abdominal pain, nausea, vomiting, diarrhea, and constipation, Back: Negative for injury and pain, MS/Extremity: Negative for injury and deformity, Skin: Negative for injury, rash, and discoloration, Neuro: Negative for headache, weakness, numbness, tingling, and seizure. 13:10 Respiratory: Positive for cough, dyspnea on exertion, shortness of breath, wheezing, Negative for hemoptysis, orthopnea, pleurisy. Exam: 13:10 Constitutional: This is a well developed, well nourished patient who is awake, alert, kb and in no acute distress. Head/Face: Normocephalic, atraumatic. Chest/axilla: Normal chest wall appearance and motion. Nontender with no deformity. No lesions are appreciated. Cardiovascular: Regular rate and rhythm with a normal S1 and S2. No gallops, murmurs, or rubs. Normal PMI, no JVD. No pulse deficits. Abdomen/GI: Soft, non-tender, with normal bowel sounds. No distension or tympany. No guarding or rebound. No evidence of tenderness throughout. Skin: Warm, dry with normal turgor. Normal color with no rashes, no lesions, and no evidence of cellulitis. MS/ Extremity: Pulses equal, no cyanosis. Neurovascular intact. Full, normal range of motion. Neuro: Awake and alert, GCS 15, oriented to person, place, time, and situation. Cranial nerves II-XII grossly intact. Motor strength 5/5 in all extremities. Sensory grossly intact. Cerebellar exam normal. Normal gait. 13:10 Respiratory: mild respiratory distress is noted, Respirations: labored breathing, that is mild, Breath sounds: rhonchi, that are mild, are scattered, wheezing: expiratory that is moderate, is heard diffusely. Vital Signs: 10:41 BP 148 / 97; Pulse 110; Resp 20; Temp 97.4; Pulse Ox 96% on R/A; hb 11:17 BP 160 / 94; Pulse 106; Resp 20; Pulse Ox 100% on Nebulizer Mask; tw2 12:13 BP 149 / 93; Pulse 121; Resp 20; Pulse Ox 100% on 2 lpm NC; tw2 13:15 BP 149 / 93; Pulse 115; Resp 20; Pulse Ox 99% on 2 lpm NC; tw2 14:25 BP 118 / 76; Pulse 102; Resp 20; Pulse Ox 100% on 2 lpm NC; tw2 15:20 BP 133 / 79; Pulse 103; Resp 20; Pulse Ox 99% on 2 lpm NC; tw2 MDM: 10:36 Patient medically screened. kb 13:07 Data reviewed: vital signs, nurses notes. Data interpreted: Pulse oximetry: on room air kb is 100 %. Interpretation: normal. Counseling: I had a detailed discussion with the patient and/or guardian regarding: the historical points, exam findings, and any diagnostic results supporting the discharge/admit diagnosis, lab results, radiology results, the need for further work-up and treatment in the hospital. 07/25 10:45 Order name: PT-INR; Complete Time: 11:30 kb 07/25 10:45 Order name: Basic Metabolic Panel; Complete Time: 11:34 kb 07/25 10:45 Order name: CBC with Diff; Complete Time: 11:30 kb 07/25 10:45 Order name: Magnesium; Complete Time: 11:34 kb 07/25 10:45 Order name: NT PRO-BNP; Complete Time: 11:34 kb 07/25 10:45 Order name: D-Dimer; Complete Time: 11:30 kb 07/25 11:53 Order name: Blood Culture Adult (2) kb 07/25 11:53 Order name: Procalcitonin; Complete Time: 13:10 kb 07/25 11:53 Order name: Lactate; Complete Time: 12:39 kb 07/25 13:51 Order name: CBC with Automated Diff EDMS 07/25 13:51 Order name: CBC with Automated Diff EDTX 07/25 13:51 Order name: Comprehensive Metabolic Panel EDTX 07/25 13:51 Order name: Comprehensive Metabolic Panel EDTX 07/25 13:51 Order name: Magnesium EDTX 07/25 10:45 Order name: XRAY Chest (1 view); Complete Time: 11:49 kb 07/25 11:54 Order name: EKG; Complete Time: 11:54 kb 07/25 13:51 Order name: CONS Physician Consult EDTX 07/25 13:51 Order name: Magnesium [facility] 07/25 13:51 Order name: NT PRO-BNP EDTX 07/25 13:51 Order name: NT PRO-BNP EDTX 07/25 13:51 Order name: Phosphorus EDTX 07/25 13:51 Order name: Phosphorus [facility] 07/25 13:51 Order name: Protime (+INR) EDTX 07/25 13:51 Order name: Protime (+INR) EDTX 07/25 13:51 Order name: Troponin I EDTX 07/25 13:51 Order name: Troponin I [facility] 07/25 13:51 Order name: Troponin I [facility] 07/25 13:55 Order name: Echo with Doppler EDTX 07/25 10:45 Order name: Cardiac monitoring; Complete Time: 11:07 kb 07/25 10:45 Order name: IV Saline Lock; Complete Time: 11:07 kb 07/25 10:45 Order name: Labs collected and sent; Complete Time: 11:07 kb 07/25 10:45 Order name: O2 Per Protocol; Complete Time: 11:07 kb 07/25 10:45 Order name: O2 Sat Monitoring; Complete Time: 11:07 kb 07/25 11:54 Order name: EKG - Nurse/Tech; Complete Time: 12:12 kb 07/25 13:51 Order name: Heart Healthy EDMS Administered Medications: 11:06 Drug: DuoNeb (3:1) (2.5 mg - 0.5 mg) 3 ml Route: Nebulizer; tw2 11:47 Follow up: Response: No adverse reaction tw2 Disposition: 07/25/20 12:23 Hospitalization ordered by Brenda Son for Observation. Preliminary diagnosis are Dyspnea, Chronic diastolic (congestive) heart failure - with exacerbation. - Bed requested for Telemetry/MedSurg (observation). - Status is Observation. tw2 - Condition is Stable. - Problem is new. - Symptoms are unchanged. Addendum: 07/27/2020 07:15 Co-signature as Attending Physician, Nick Vegas MD. r n Signatures: Dispatcher [employer] EDTX Daiana Whitfield, LOCAL GOVERNMENT LEGISLATOR-C LOCAL GOVERNMENT LEGISLATOR-Ckb Nick Vegas MD MD rn Tomeka Viera, RN RN Mae Lujan, RN RN tw2 Vince Adkins RN RN ja1 Corrections: (The following items were deleted from the chart) 07/25 11:47 11:15 PSHx: Lobectomy; tw2 tw2 13:55 13:51 Echo with Doppler ordered. [facility] 14:25 12:23 Hospitalization Ordered by Brenda Son MD for Observation. Preliminary ja1 diagnosis is Dyspnea; Chronic diastolic (congestive) heart failure - with exacerbation. Bed requested for Telemetry/MedSurg (observation). Status is Observation. Condition is Stable. Problem is new. Symptoms are unchanged. kb 15:21 14:25 07/25/2020 12:23 Hospitalization Ordered by Brenda Son MD for Observation. tw2 Preliminary diagnosis is Dyspnea; Chronic diastolic (congestive) heart failure - with exacerbation. Bed requested for Telemetry/MedSurg (observation). Status is Observation. Condition is Stable. Problem is new. Symptoms are unchanged. ja1
--- NOTE | 2020-07-25 12:24 | ER ---
Nurse's Notes [facility] Name: Angelo Narvaez Age: 64 yrs Sex: Male : 1955 Arrival Date: 07/25/2020 Time: 10:15 Bed 4 Private MD: Diagnosis: Dyspnea;Chronic diastolic (congestive) heart failure-with exacerbation Presentation: 07/25 10:41 Chief complaint: SOB x 3 dats. Coronavirus screen: Client presents with at least one hb sign or symptom that may indicate coronavirus-19. Standard/surgical mask placed on the client. Provider contacted for isolation considerations. Ebola Screen: No symptoms or risks identified at this time. Initial Sepsis Screen: Does the patient meet any 2 criteria? No. Patient's initial sepsis screen is negative. Does the patient have a suspected source of infection? No. Patient's initial sepsis screen is negative. Risk Assessment: Do you want to hurt yourself or someone else? Patient reports no desire to harm self or others. Onset of symptoms was July 22, 2020. 10:41 Method Of Arrival: Wheelchair hb 10:41 Acuity: STEPHIE 3 hb Triage Assessment: 10:40 General: Appears in no apparent distress. slender. Respiratory: Onset: The tw2 symptoms/episode began/occurred 3 days ago, the patient has mild shortness of breath. Respiratory: Reports shortness of breath at rest on exertion. Historical: - Allergies: 10:42 Prednisone; hb - Home Meds: 11:15 acetaminophen 500 mg Oral tab as needed [Active]; amiodarone 200 mg Oral tab 1 tab once tw2 daily [Active]; aspirin 81 mg Oral chew 1 tab once daily [Active]; Calcium Carbonate 750mg Oral daily [Active]; D3 1000 units daily [Active]; dexamethasone 2 mg Oral tab [Active]; Flexeril 5 mg Oral tab as needed [Active]; folic acid 1 mg Oral tab 1 tab once daily [Active]; gabapentin 300 mg Oral cap as needed [Active]; ipratropium-albuterol 0.5 mg-3 mg(2.5 mg base)/3 mL Inhl nebu [Active]; Iron CR 65 mg daily Oral [Active]; Lasix 40 mg Oral tab 1 tab [Active]; levothyroxine 100 mcg tab 1 tab once daily [Active]; lorazepam 0.5 mg Oral tab [Active]; magnesium oxide 400 mg Oral cap 400 mg daily [Active]; metoprolol succinate 50 mg Oral Tb24 1 tab nightly [Active]; ProAir HFA 90 mcg/actuation inhalation HFAA [Active]; multivitamin Oral cap daily [Active]; simvastatin 20 mg Oral tab 1 tab once daily [Active]; spironolactone 25 mg Oral tab 0.5 tab nightly [Active]; Trelege 1 puff [Active]; Xarelto 15 mg Oral tab nightly [Active]; - PMHx: 11:15 Atrial Fib; kidney disease; Rheumatoid Arthritis; Pneumothorax; Lung Cancer; HTN; Gout; tw2 COPD; C-DIFF; - PSHx: 11:15 Appendectomy; tw2 11:47 Lobectomy, Left upper lobe; tw2 - Immunization history:: Adult Immunizations up to date. - Social history:: Smoking status: Patient denies any tobacco usage or history of. Screenin:43 Abuse screen: Denies threats or abuse. Nutritional screening: No deficits noted. tw2 Tuberculosis screening: No symptoms or risk factors identified. Fall Risk None identified. Assessment: 10:40 General: Appears in no apparent distress. slender, Behavior is calm, cooperative, tw2 appropriate for age. Pain: Denies pain. Neuro: Level of Consciousness is awake, alert, obeys commands, Oriented to person, place, time, situation. Cardiovascular: Heart tones S1 S2 Patient's skin is warm and dry. Edema is 2+ to left midcalf, left ankle, right midcalf and right ankle Rhythm is regular. Respiratory: Reports shortness of breath at rest on exertion Airway is patent Respiratory effort is even, unlabored, Respiratory pattern is regular, symmetrical, Breath sounds are diminished bilaterally. GI: No signs and/or symptoms were reported involving the gastrointestinal system. Abdomen is flat, Bowel sounds present X 4 quads. : No signs and/or symptoms were reported regarding the genitourinary system. EENT: No signs and/or symptoms were reported regarding the EENT system. Derm: Skin is fragile, is thin, Skin is dry, Skin temperature is warm. Musculoskeletal: Range of motion: intact in all extremities. 11:18 Reassessment: Patient appears in no apparent distress at this time. No changes from tw2 previously documented assessment. Patient and/or family updated on plan of care and expected duration. Pain level reassessed. Patient is alert, oriented x 3, equal unlabored respirations, skin warm/dry/pink. 12:16 Reassessment: Patient appears in no apparent distress at this time. No changes from tw2 previously documented assessment. Patient and/or family updated on plan of care and expected duration. Pain level reassessed. Patient is alert, oriented x 3, equal unlabored respirations, skin warm/dry/pink. 13:20 Reassessment: Patient appears in no apparent distress at this time. No changes from tw2 previously documented assessment. Patient and/or family updated on plan of care and expected duration. Pain level reassessed. Patient is alert, oriented x 3, equal unlabored respirations, skin warm/dry/pink. 14:26 Reassessment: Patient appears in no apparent distress at this time. No changes from tw2 previously documented assessment. Patient and/or family updated on plan of care and expected duration. Pain level reassessed. Patient is alert, oriented x 3, equal unlabored respirations, skin warm/dry/pink. 15:20 Reassessment: Patient appears in no apparent distress at this time. No changes from tw2 previously documented assessment. Patient and/or family updated on plan of care and expected duration. Pain level reassessed. Patient is alert, oriented x 3, equal unlabored respirations, skin warm/dry/pink. Vital Signs: 10:41 BP 148 / 97; Pulse 110; Resp 20; Temp 97.4; Pulse Ox 96% on R/A; hb 11:17 BP 160 / 94; Pulse 106; Resp 20; Pulse Ox 100% on Nebulizer Mask; tw2 12:13 BP 149 / 93; Pulse 121; Resp 20; Pulse Ox 100% on 2 lpm NC; tw2 13:15 BP 149 / 93; Pulse 115; Resp 20; Pulse Ox 99% on 2 lpm NC; tw2 14:25 BP 118 / 76; Pulse 102; Resp 20; Pulse Ox 100% on 2 lpm NC; tw2 15:20 BP 133 / 79; Pulse 103; Resp 20; Pulse Ox 99% on 2 lpm NC; tw2 ED Course: 10:15 Patient arrived in ED. ds1 10:31 Daiana Whitfield FNP-C is PHCP. kb 10:31 Nick Vegas MD is Attending Physician. kb 10:38 Mae Lujan, RN is Primary Nurse. tw2 10:40 Placed in gown. Bed in low position. awake overnight monitor on. Pulse ox on. NIBP on. Warm tw2 blanket given. 10:42 Triage completed. hb 10:42 Arm band placed on. hb 11:02 Inserted saline lock: 22 gauge in left antecubital area, using aseptic technique. Blood tw2 collected. 11:07 XRAY Chest (1 view) In Process Unspecified. EDMS 11:29 Notified Nurse Practitioner and/or Physician Sound Truck Operator of a critical lab result(s), hb [id number] [id number]. 12:12 Lactate Sent. tw2 12:12 Procalcitonin Sent. tw2 12:15 EKG done, by ED staff, reviewed by Daiana HUGHES. em1 12:22 Brenda Son MD is Hospitalizing Provider. kb 14:28 No provider procedures requiring assistance completed. Patient admitted, IV remains in tw2 place. 14:29 Awaiting: unsuccessful attempt to call report to NIK Weiner at this time. tw2 Administered Medications: 11:06 Drug: DuoNeb (3:1) (2.5 mg - 0.5 mg) 3 ml Route: Nebulizer; tw2 11:47 Follow up: Response: No adverse reaction tw2 Outcome: 12:23 Decision to Hospitalize by Provider. kb 14:35 Admitted to Tele accompanied by tech, via stretcher, room 217, with oxygen, with chart, sv Report called to Husam ZARAGOZA 14:35 Condition: stable 14:35 Instructed on the need for admit. 15:21 Patient left the ED. tw2 Signatures: Dispatcher [employer] EDMS Daiana Whitfield FNP-C FNP-Ange Zamora RN RN sv Sanford, Demi ds1 Dustin Abbott em1 Tomeka Viera RN RN hb Wise, Tara, NIK RN tw2 Corrections: (The following items were deleted from the chart) 11:46 10:40 Respiratory: Reports shortness of breath at rest on exertion Airway is patent tw2 Respiratory effort is even, unlabored, Respiratory pattern is regular, symmetrical, Breath sounds are diminished bilaterally. tw2 11:47 11:15 PSHx: Lobectomy; tw2 tw2 11:51 10:40 Cardiovascular: Heart tones S1 S2 Patient's skin is warm and dry. Rhythm is tw2 regular tw2 12:16 12:13 BP 149 / 93; Pulse 132bpm; Resp 20bpm; Pulse Ox 100% 2 lpm Nasal Cannula; tw2 tw2
[2020-07-25] MEDS ORDERED: ACETAMINOPHEN 500 MG TAB PO PRN (13:45)
[2020-07-25] MEDS ORDERED: ONDANSETRON 4 MG/2 ML VIAL IV PRN (13:45)
[2020-07-25] MEDS ORDERED: ENOXAPARIN 40 MG/0.4 ML SQ SCH (15:00)
[2020-07-25] MEDS: KCL 20 MEQ/100 mL IVPB 20 MEQ/100 ML BAG IV SCH ×2 (17:00→17:10)
[2020-07-25] MEDS: FUROSEMIDE 40 MG/4 ML VIAL IV SCH (17:10)
[2020-07-25] MEDS ORDERED: NA CHLORIDE 0.9% 250 ML ONE (17:32)
[2020-07-25] MEDS ORDERED: GABAPENTIN 300 MG CAP PO PRN (17:48)
[2020-07-25] MEDS: VANCOMYCIN ORAL SOLN 250 MG/5 ML OSYR PO SCH (18:30)
[2020-07-25] MEDS ORDERED: KCL 20 MEQ/100 mL IVPB 20 MEQ/100 ML BAG IV SCH (20:00)
[2020-07-25] MEDS: CYCLOBENZAPRINE 10 MG TAB PO SCH (20:41)
[2020-07-25] MEDS: ATORVASTATIN 10 MG TAB PO SCH (20:42)
[2020-07-25] MEDS: METOPROLOL XL 50 MG TAB PO SCH (20:42)
[2020-07-25] MEDS: allopurinoL 100 MG TAB PO SCH (20:43)
[2020-07-25] MEDS ORDERED: HOME MED 1 EA UNK (Simvastatin [Simvastatin] 20 MG) PO SCH (21:00)
[2020-07-26] MEDS: VANCOMYCIN ORAL SOLN 250 MG/5 ML OSYR PO SCH ×4 (00:47→17:02)
[2020-07-26] MEDS: LORAZEPAM 0.5 MG TABLET PO PRN ×2 (00:54→21:36)
[2020-07-26] MEDS: LEVOTHYROXINE SOD 0.1 MG TAB PO SCH (05:15)
[2020-07-26 05:52] LABS: Absolute Lymphocytes (CBC) 0.5 K/uL (0.7-4.9); Lymphocytes % 11.2 % (15.3-44.8); MPV 8.1 fL (7.6-11.3); RBC Red Blood Cell Count 2.98 M/uL (4.33-5.43)
[2020-07-26 05:57] LABS: Protime INR 1.29
[2020-07-26 06:10] LABS: Albumin 2.3 g/dL (3.4-5.0); Bilirubin Total 0.4 mg/dL (0.2-1.0); Magnesium 2.1 mg/dL (1.8-2.4); Phosphorus 2.5 mg/dL (2.5-4.9); Potassium 3.2 mmol/L (3.5-5.1); Protein, Total 5.6 g/dL (6.4-8.2)
[2020-07-26 06:54] VITALS: BMI 20.5
[2020-07-26] MEDS ORDERED: RIVAROXABAN 15 MG TABLET PO SCH (08:00)
--- NOTE | 2020-07-26 08:40 | RAD REPORT ---
EXAM DESCRIPTION: CT - Thorax Wo Con - 07/26/2020 7:58 am CLINICAL HISTORY: hemoptysis; h/o of lung ca/COPD COMPARISON: December 2019 TECHNIQUE: Computed axial tomography of the chest was obtained. Contrast was not requested. All CT scans are performed using dose optimization technique as appropriate and may include automated exposure control or mA/KV adjustment according to patient size. FINDINGS: The evaluation of mediastinum, sanjeev and vessels is limited secondary to lack of IV contras t administration. 4 centimeter opacity has developed within the medial left upper lobe at apex. Postsurgical changes in volve the left lung. Diminished vascularity is present. Mild interstitial opacities right lung. COPD. Hyperaeration right lung Small bilateral pleural effusions No gross mediastinal/hilar lymphadenopathy noted IMPRESSION: A 4 centimeter left upper lobe opacity may represent neoplasm or post treatment atelecta sis/ inflammation. PET-CT scan recommended Mild interstitial opacities right lung probably mild interstitial pulmonary edema
[2020-07-26] MEDS ORDERED: POTASSIUM 25 MEQ EFFERV TAB PO ONE (09:00)
[2020-07-26] MEDS ORDERED: HOME MED 1 EA UNK (Magnesium Oxide [Magnesium] 400 MG) PO SCH (09:00)
[2020-07-26] MEDS ORDERED: HOME MED 1 EA UNK (Fluticasone/Umeclidin/Vilanter [Trelegy Ellipta 100-62.5-25] 1 PUFF) IH SCH (09:00)
[2020-07-26] MEDS ORDERED: HOME MED 1 EA UNK (Omeprazole [Prilosec] 40 MG) PO SCH (09:00)
[2020-07-26] MEDS ORDERED: MULTIVITAMIN WITH MINERALS PO SCH (09:00)
[2020-07-26] MEDS ORDERED: HOME MED 1 EA UNK (Cholecalciferol (Vitamin D3) [Vitamin D3] 2,000 UNIT) PO SCH (09:00)
[2020-07-26] MEDS: METOPROLOL XL 50 MG TAB PO SCH ×2 (09:24→21:38)
[2020-07-26] MEDS: ASPIRIN EC 81 MG TAB PO SCH (09:24)
[2020-07-26] MEDS: VITAMIN D 1000 UNIT TAB PO SCH (09:24)
[2020-07-26] MEDS: MULTIVIT W/ MINERAL TAB PO SCH (09:24)
[2020-07-26] MEDS: POTASS/SODIUM PHOSPHATE 1 PKT POWD.PACK PO SCH ×3 (09:25→11:39)
[2020-07-26] MEDS: FOLIC ACID 1 MG TABLET PO SCH (09:25)
[2020-07-26] MEDS: AMIODARONE HCL 200 MG TAB PO SCH (09:26)
[2020-07-26] MEDS: CALCIUM CARBONATE CHEW 500MG TAB PO SCH (09:26)
[2020-07-26] MEDS: MAGNESIUM OXIDE 400 MG TAB PO SCH (09:27)
[2020-07-26] MEDS: FERROUS SULFATE 325 MG TAB PO SCH (09:27)
[2020-07-26] MEDS: FUROSEMIDE 40 MG/4 ML VIAL IV SCH ×3 (09:27→21:34)
[2020-07-26] MEDS: PANTOPRAZOLE 40MG TABLET PO SCH (09:31)
[2020-07-26] MEDS ORDERED: POTASSIUM CL SA 10 MEQ TAB PO ONE ×2 (10:58→17:00)
--- NOTE | 2020-07-26 11:59 | CON ---
Date of Consultation: 07/26/2020 The patient was admitted with shortness of breath. Reason For Consultation: Elevated BUN and creatinine. History Of Present Illness: This is a pleasant 64-year-old gentleman, well known to me from the [facility] with significant past medical history of chronic kidney disease stage 3B secondary to cardiorenal, baseline creatinine 1.6 to 1.8, hypertension, hyperlipidemia, advanced COPD, lung CA, congestive hea rt failure. The patient recently admitted to the hospital with C diff and acute kidney injury second heidy to prerenal. At that time diuresis including Lasix and spironolactone was discontinued. The pat ient came to the office after we resumed the Lasix, we kept holding the spironolactone. At that time , he had significant peripheral edema, did not complain from any shortness of breath. Apparently, th e patient over the weekend started having significant shortness of breath and cough. For that reason , he reported to the hospital, found to have possible right upper lobe pneumonia. For that reason th e patient admitted. Lab workup showed elevation in BUN and creatinine. For that reason, we have zahra dykes consulted. The patient denied taking any nonsteroidal, no IV contrast. Again, the patient was started back on his diuresis over the night, patient was placed on Lasix twice a day as shortness of breath slightly better. Swelling has been subsided but is still there. Past Medical History: Include: 1.Advanced COPD. 2.Lung CA. 3.Chronic kidney disease stage 3B, baseline creatinine 1.6 to 1.8, GFR early 30. 4.Congestive heart failure. Allergies: NO KNOWN DRUGS ALLERGY. Social History: Ex-smoker. Had deny alcohol, deny drugs abuse. Family History: Positive for Hypertension. Past Surgical History: Include: 1.Bronchoscopy. 2.Lobectomy. 3.Appendectomy. Review of Systems: Head and Neck: No red eye. No ear pain. GI: No nausea. No vomiting. : No polyuria. No dysuria. No hematuria. Disease Management Nurse: Not applicable. Respiratory: Has shortness of breath. Cardiovascular: Has leg swelling. Has orthopnea. Endocrine: No polydipsia. Skin: No rash. Neuro: Generalized fatigue. Musculoskeletal: Generalized weakness. Physical Examination: Vital Signs: When I saw the patient, patient lying in bed. Blood pressure 132/72, pulse of 92, afeb rile. Chest: Crackles bilateral base with crackles on the right mid zone. Heart: S1 and S2, systolic murmur. Abdomen: Soft, nontender. Extremities: +2 edema. Neurologic: Alert and oriented x3. No focal. Laboratory Data: WBC 4, H and H 8/24, platelet 198. Sodium 142, potassium 3.2, bicarb 32, BUN 18, c reatinine 1.8, calcium of 8, GFR of 37, albumin 2.3, corrected calcium is 9.2. Chest x-ray; emphysem atous change, infiltration on the upper zone with congestion. Medications: Current medications for the patient at home were include allopurinol, vancomycin, Xarel to, multivitamin, magnesium, levothyroxine, lorazepam, Lasix 40 daily, breathing treatment, cholecalc iferol, calcium carbonate and amiodarone. Current medication in the hospital includes allopurinol, aspirin, amiodarone, calcium carbonate, chol ecalciferol, gabapentin, lorazepam, levothyroxine, metoprolol, Vancomycin, oral Lasix 40 b.i.d. Assessment/plan: 1.Acute kidney injury on chronic kidney disease secondary to cardiorenal, looked to me still on the over volume side. I am going to go ahead and increase Lasix to 3 times a day and we will monitor the patient closely. We will place the patient on a fluid restriction. 2.Hypertension. We will utilize blood pressure for more diuresis. 3.History of Clostridium difficile. Continue oral vancomycin. 4.Questionable of pneumonia. The patient recently discharged from the hospital. This infiltration is new compared to old x-ray. The patient is going to need to be treated as healthcare-associated pn eumonia. We will discuss that with the Dr. Son. 5.Chronic obstructive pulmonary disease advanced with exacerbation as above. 6.Congestive heart failure. We will try to establish better volume control. 7.Hypokalemia. We will supplement. LALITA/RYAN Voice ID: [id number] Report ID: [id number]
--- NOTE | 2020-07-26 12:42 | P.HP ---
Certification for Inpatient Patient admitted to: Inpatient With expected LOS: >2 Midnights Patient will require the following post-hospital care: None Practitioner: I am a practitioner with admitting privileges, knowledge of patient current condition, hospital course, and medical plan of care. Services: Services provided to patient in accordance with Admission requirements found in Title 42 Section 412.3 of the Code of Federal Regulations Patient History Date of Service: 07/25/20 Reason for admission: Shortness of breath/hemoptysis/healthcare acquired pneumonia History of Present Illness: Patient is a 64-year-old gentleman who came to the hospital with hypoxemia. Patient wears home oxygen at at night. He said his stats stay in the 90s. During the day his oxygen saturations also in the 90s. Occasionally when he walks far distances like to his driveway any after rest for a little while before the oxygen saturations,. But today his oxygen saturations have been in the 80s so he has been wearing his oxygen even during the day. He was coughing up some blood so he decided to come into the emergency room for further evaluation. Patient has a history of lung cancer with multiple lymph nodes excised. He had chemotherapy and radiation and date left upper lobe lobectomy. He has not required any treatment in the last few years. He denies any fevers but he has been coughing a lot more. He has some congestion as well. Patient has bilateral lower extremity edema. He says this is related to stopping his aldactone and being given a lot of fluids when he was in the hospital recently. He is admitted for C diff colitis. He has been on oral vancomycin since that time. He does have some infiltrates or edema diffusely. He has some pulmonary edema on the chest x-ray versus pulmonary infiltrates. Will start him on broad-spectrum antibiotic coverage along with diuresing patient. Echocardiogram is pending. He sees Cardiology locally as well as pulmonary locally. Will get them consulted along with patient's chief power dispatcher. Allergies No Known Allergies Allergy (Verified 03/29/20 17:18) Home Medications: Acetaminophen/Diphenhydramine [Tylenol Pm Ex-Strength Caplet] 2 tab PO BEDTIME PRN 07/07/20 Albuterol Sulfate [Proair Hfa] 1 puff IH BIDP PRN 07/07/20 Amiodarone HCl [Cordarone*] 200 mg PO DAILY 07/07/20 Aspirin Chewable [Aspirin Chewable*] 81 mg PO DAILY 07/07/20 Calcium Carbonate [Tums Regular*] 1,000 mg PO DAILY 07/07/20 Cholecalciferol (Vitamin D3) [Vitamin D3] 2,000 unit PO DAILY 07/07/20 Cyclobenzaprine [Flexeril*] 5 mg PO BEDTIME 07/07/20 Ferrous Sulfate [Ferrous Sulfate*] 325 mg PO DAILY 07/07/20 Fluticasone/Umeclidin/Vilanter [Trelegy Ellipta 100-62.5-25] 1 puff IH DAILY 07/07/20 Folic Acid 3 mg PO DAILY 07/07/20 Gabapentin [Neurontin*] 300 mg PO BEDTIME PRN 07/07/20 Ipratropium/Albuterol Sulfate [Iprat-Albut 0.5-3(2.5) mg/3 ml] 2 puff IH BIDP PRN 07/07/20 LORazepam [Ativan*] 0.5 mg PO BEDTIME PRN 07/07/20 Levothyroxine [Synthroid*] 100 mcg PO [id number] 07/07/20 Magnesium Oxide [Magnesium] 400 mg PO DAILY 07/07/20 Metoprolol Succinate [Toprol Xl*] 50 mg PO BID 07/07/20 Multivitamin with Minerals [One Daily Plus Minerals] 1 tab PO DAILY 07/07/20 Omeprazole [Prilosec] 40 mg PO DAILY 07/07/20 Rivaroxaban [Xarelto*] 15 mg PO DAILY 07/07/20 allopurinoL [Zyloprim*] 100 mg PO BEDTIME 07/07/20 Vancomycin Oral Soln [Vancocin HCl*] 5 ml PO Q6HR #280 ml 07/12/20 Furosemide [Lasix] 40 mg PO DAILY 07/25/20 Simvastatin 20 mg PO BEDTIME 07/25/20 - Past Medical/Surgical History Has patient received pneumonia vaccine in the past: Yes Diabetic: No -: Hypertension -: COPD -: Atrial fibrillation on chronic anticoagulation therapy -: Lung cancer(does not know which type) -: Gout -: Chronic diastolic congestive heart failure -: Chronic kidney disease stage 4 -: left upper lung lobectomy with lymph node resection -: appendectomy -: tonsillectomy Psychosocial/ Personal History: . Currently lives at home with his - Family History Father Medical History: Heart disease, Hypertension Notes: at 75 yo Mother Medical History: Cancer Notes: no medical history, still living Brother Medical History: Hypertension, Cancer Notes: melanoma Sister Medical History: Other (see notes) Notes: fibromyalgia - Social History Smoking Status: Former smoker Alcohol use: No Place of Residence: Home Review of Systems 10-point ROS is otherwise unremarkable Physical Examination - Vital Signs Temperature: 97.7 F Blood Pressure: 132/72 Pulse: 92 Respirations: 18 Pulse Ox (%): 97 - Physical Exam General: Alert, In no apparent distress, Oriented x3 HEENT: Atraumatic, PERRLA, Mucous membr. moist/pink, EOMI, Sclerae nonicteric Neck: Supple, 2+ carotid pulse no bruit, No LAD, Without JVD or thyroid abnormality Respiratory: Diminished, Rhonchi/gurgles Cardiovascular: Regular rate/rhythm, Normal S1 S2, Systolic murmur Gastrointestinal: Normal bowel sounds, Soft and benign, Non-distended, No tenderness Musculoskeletal: No clubbing, No swelling, No tenderness Integumentary: No rashes Neurological: Normal gait, Normal speech, Normal strength at 5/5 x4 extr, Normal tone, Sensation intact, Cranial nerves 3-12 intact, Normal affect Lymphatics: No axilla or inguinal lymphadenopathy Assessment & Plan - Problems (Diagnosis) (1) Shortness of breath Current Visit: Yes Status: Acute (2) Hypoxemia Current Visit: Yes Status: Acute (3) Hemoptysis Current Visit: Yes Status: Acute (4) Anasarca Current Visit: Yes Status: Acute (5) Healthcare-associated pneumonia Current Visit: Yes Status: Acute (6) Congestive heart failure, acute Current Visit: Yes Status: Acute (7) History of lung cancer Current Visit: Yes Status: Acute (8) Status post lobectomy of lung Current Visit: Yes Status: Acute (9) COPD exacerbation Onset Date: 04/27/18 Current Visit: No Status: Acute (10) Clostridium difficile colitis Current Visit: No Status: Acute (11) Elevated troponin Current Visit: No Status: Acute (12) Flash pulmonary edema Onset Date: 04/27/18 Current Visit: No Status: Acute - Plan 1. Continue with IV antibiotics/ continue oral vancomycin 2. Awaiting sputum and blood culture 3. Repeat chest x-ray 4. Will proceed with CT scan of the chest if pneumonia and do not evaluate questionable mass 5. Pulmonary consultation 6. Continue with nebs as needed 7. O2 per protocol 8. Heplock IV 9. Repeat labs including CBC and renal function in a.m. 10. Nephrology consultation 11. Serial troponins and EKG 12. Cardiology consultation 13. Echocardiogram and further reccomendations per cardiology 14. Anti-platelet therapy, anti coagulation, beta-hannah, statin, and O2 as needed 15. IV morphine for pain 16. Nitro p.r.n. 17. GI and DVT prophylaxis Discharge Plan: Home Plan to discharge in: Greater than 2 days - Advance Directives Does patient have a Living Will: No Does patient have a Durable POA for Healthcare: No - Code Status/Comfort Care Code Status Assessed: Yes Code Status: Full Code Critical Care: No Time Spent Managing PTS Care (In Minutes): 45
[2020-07-26] MEDS ORDERED: CLOPIDOGREL 75 MG TABLET PO ONE (12:52)
[2020-07-26] MEDS ORDERED: VANCOMYCIN/NS 1 gm 1 GM/250 ML BAG IVPB ONE (13:00)
--- NOTE | 2020-07-26 14:29 | P.CNS ---
Date of Consult: 07/26/20 Chief Complaint: Shortness of breath/hemoptysis/ History of Present Illness: Patient is 64 years of age admitted with hypoxemia has a history of severe COPD lung cancer the coming worse since he was admitted here for C difficile infection more shortness of breath lower extremity edema since his last visit to the hospital the spironolactone was discontinued patient has responded well to spironolactone has admitting the hospital for quite some time also complained of a lower extremity congestion denies any fever chills hicks on oral vancomycin Allergies No Known Allergies Allergy (Verified 03/29/20 17:18) Home Medications: Acetaminophen/Diphenhydramine [Tylenol Pm Ex-Strength Caplet] 2 tab PO BEDTIME PRN 07/07/20 Albuterol Sulfate [Proair Hfa] 1 puff IH BIDP PRN 07/07/20 Amiodarone HCl [Cordarone*] 200 mg PO DAILY 07/07/20 Aspirin Chewable [Aspirin Chewable*] 81 mg PO DAILY 07/07/20 Calcium Carbonate [Tums Regular*] 1,000 mg PO DAILY 07/07/20 Cholecalciferol (Vitamin D3) [Vitamin D3] 2,000 unit PO DAILY 07/07/20 Cyclobenzaprine [Flexeril*] 5 mg PO BEDTIME 07/07/20 Ferrous Sulfate [Ferrous Sulfate*] 325 mg PO DAILY 07/07/20 Fluticasone/Umeclidin/Vilanter [Trelegy Ellipta 100-62.5-25] 1 puff IH DAILY 07/07/20 Folic Acid 3 mg PO DAILY 07/07/20 Gabapentin [Neurontin*] 300 mg PO BEDTIME PRN 07/07/20 Ipratropium/Albuterol Sulfate [Iprat-Albut 0.5-3(2.5) mg/3 ml] 2 puff IH BIDP PRN 07/07/20 LORazepam [Ativan*] 0.5 mg PO BEDTIME PRN 07/07/20 Levothyroxine [Synthroid*] 100 mcg PO [id number] 07/07/20 Magnesium Oxide [Magnesium] 400 mg PO DAILY 07/07/20 Metoprolol Succinate [Toprol Xl*] 50 mg PO BID 07/07/20 Multivitamin with Minerals [One Daily Plus Minerals] 1 tab PO DAILY 07/07/20 Omeprazole [Prilosec] 40 mg PO DAILY 07/07/20 Rivaroxaban [Xarelto*] 15 mg PO DAILY 07/07/20 allopurinoL [Zyloprim*] 100 mg PO BEDTIME 07/07/20 Vancomycin Oral Soln [Vancocin HCl*] 5 ml PO Q6HR #280 ml 07/12/20 Furosemide [Lasix] 40 mg PO DAILY 07/25/20 Simvastatin 20 mg PO BEDTIME 07/25/20 - Past Medical/Surgical History Diabetic: No -: Hypertension -: COPD -: Atrial fibrillation on chronic anticoagulation therapy -: Lung cancer(does not know which type) -: Gout -: Chronic diastolic congestive heart failure -: Chronic kidney disease stage 4 -: left upper lung lobectomy with lymph node resection -: appendectomy -: tonsillectomy Psychosocial/ Personal History: . Currently lives at home with his - Family History Father Medical History: Heart disease, Hypertension Notes: at 75 yo Mother Medical History: Cancer Notes: no medical history, still living Brother Medical History: Hypertension, Cancer Notes: melanoma Sister Medical History: Other (see notes) Notes: fibromyalgia - Social History Alcohol use: No CD- Drugs: No Caffeine use: Yes Place of Residence: Home Review of Systems General: Weakness Respiratory: Shortness of Breath Cardiovascular: Edema Physical Examination Temp Pulse Resp BP Pulse Ox 97.7 F 89 18 129/75 97 07/26/20 12:49 07/26/20 13:20 07/26/20 12:49 07/26/20 13:20 07/26/20 12:49 General: Alert, In no apparent distress, Oriented x3 Respiratory: Clear to auscultation bilaterally Cardiovascular: Edema (2+ edema) Gastrointestinal: Normal bowel sounds, Soft and benign Integumentary: No rashes, No significant lesion - Problems (1) Congestive heart failure Current Visit: Yes Status: Acute Plan: Patient is 64 years of age multiple medical problem with a history of lung cancer left upper lobe lobectomy that was in 2018 severe COPD atrial fibrillation admitted with worsening dyspnea chronic renal failure recent C difficile infection mildly anemic white count is normal patient has no fever chest x-rays clear he does have a left upper lobe opacity they have recurrence of lung cancer I have added back spironolactone he has responded very well to at discontinue meropenem plan for discharge echocardiogram pending patient is on trilogy at home may have underlying exacerbation of COPD discharged home on low- dose prednisone 10 b.i.d. for 10 days
[2020-07-26] MEDS ORDERED: VANCOMYCIN 500 MG in NA CHLORIDE 0.9% 100 ML IVPB ONE (15:00)
[2020-07-26] MEDS: SPIRONOLACTONE 25 MG TABLET PO SCH ×2 (15:06→21:38)
[2020-07-26] MEDS ORDERED: Meropenem 500 MG in NA CHLORIDE 0.9% 100 ML IV SCH (17:00)
[2020-07-26] MEDS ORDERED: Meropenem 500 MG VIAL IV SCH (17:00)
[2020-07-26] MEDS ORDERED: PIPER/TAZO/NS 3.375gm 3.375 GM/100 ML BAG IVPB SCH (18:00)
[2020-07-26] MEDS: CYCLOBENZAPRINE 10 MG TAB PO SCH (21:36)
[2020-07-26] MEDS: allopurinoL 100 MG TAB PO SCH (21:36)
[2020-07-26] MEDS: ATORVASTATIN 10 MG TAB PO SCH (21:37)
[2020-07-27] MEDS: VANCOMYCIN ORAL SOLN 250 MG/5 ML OSYR PO SCH ×5 (00:15→23:02)
--- NOTE | 2020-07-27 04:09 | CON ---
Date of Consultation: 07/26/2020 Reason For Consultation: Elevated troponin and shortness of breath. History Of Present Illness: Mr. Narvaez is a 64-year-old white male. He has had a history of lung cancer before. He is status post left upper lobe resection. He has a history of hypertension, chron ic renal disease, COPD, atrial fibrillation, gout, gastroesophageal reflux disease, rheumatoid arthri tis, and chronic diastolic congestive heart failure. The patient came into the emergency room with s hortness of breath, cough, hemoptysis, was found to have a combination of COPD exacerbation, worsenin g renal function, and elevated troponin, and I was consulted. The patient denied any chest pain. De nied any nausea, vomiting, or diaphoresis. Denied any PND, orthopnea, or pedal edema. He denied any palpitation or syncope. Denied any fever or chills. Past Medical History: As stated above. Allergies: NONE. Review of Systems: Negative. Social History: Negative. Family History: Noncontributory. Medications: At home include aspirin, amiodarone, Prilosec, Xarelto, Zocor, allopurinol, aspirin inh nitin, metoprolol, Lasix, and Synthroid. Physical Examination: General: He appeared to be in mild respiratory distress but has improved since admission. He was in sinus rhythm. He was afebrile. HEENT: Negative. Neck: Supple with no bruit, lymphadenopathy, JVD, or thyromegaly. Chest: Reveals some expiratory wheezing. Cardiac: Reveals a regular rhythm and rate with S4 gallops. No murmurs or rubs. Abdomen: Benign. Extremities: Revealed no clubbing, cyanosis, or edema. Diagnostic Data: His creatinine is 1.73. His D-dimer is 789. INR was 2.03, potassium of 3.4. His BNP was 4254. His troponin was 2.54. EKG showed right bundle-branch block with sinus rhythm. Chest x-ray showed pneumonia versus congestive heart failure. His echocardiogram in 2019 in January was act ually normal. Impression And Plan: 1.Chronic obstructive pulmonary disease exacerbation. 2.Acute on chronic diastolic congestive heart failure. 3.Elevated troponin, probably secondary to hypoxia and renal failure. 4.Worsening acute on chronic renal failure. 5.Paroxysmal atrial fibrillation, on amiodarone and Xarelto, Xarelto being held. 6.Dyslipidemia, well controlled. 7.Hypertension, well controlled. 8.Hypothyroidism, on Synthroid. 9.Gastroesophageal reflux disease. 10.Anemia. 11.Gout. 12.Hypokalemia. 13.Chronic anticoagulation use. I think, Mr. Narvaez at this point is definitely not a candidate for heart catheterization. This wi ll only worsen his renal function. This is not an acute coronary syndrome. Note: Before we do an e chocardiogram on him, continue his pulmonary treatment at present treatment for now. I think it woul d be reasonable to do an outpatient stress test on him to rule out coronary artery disease. I will c maddy to follow him. ENRIQUE/RYAN Voice ID: [id number] Report ID: [id number]
[2020-07-27 04:38] LABS: Potassium 3.5 mmol/L (3.5-5.1)
[2020-07-27] MEDS ORDERED: POTASSIUM CL SA 10 MEQ TAB PO ONE (04:47)
[2020-07-27] MEDS: LEVOTHYROXINE SOD 0.1 MG TAB PO SCH (05:33)
--- NOTE | 2020-07-27 08:14 | PN ---
Date of Progress Note: 07/27/2020 Subjective: Mr. Narvaez is a gentleman, who has been followup for elevated troponin, acute on chron ic renal failure, chronic diastolic congestive heart failure, paroxysmal atrial fibrillation, and [employer] D. Echocardiogram is pending. The patient is feeling much better today. He is not complaining of s hortness of breath. He denied any palpitations or chest pain. Objective: Vital Signs: Stable. He is in sinus rhythm. He is afebrile. Chest: Revealed expiratory wheezing, but no rales. Extremities: Showed no edema. Impression: 1.Acute on chronic diastolic congestive heart failure. 2.Chronic obstructive pulmonary disease exacerbation with hemoptysis and cough. 3.Paroxysmal atrial fibrillation. 4.Acute on chronic renal failure. 5.Elevated troponin. Plan: There is an echocardiogram pending. I think outpatient Lexiscan is indicated. I do not think the troponin is an acute coronary syndrome, I think it is secondary to renal failure and congestive heart failure. Mr. Narvaez's Xarelto has been restarted. His is on aspirin. He is on Lipitor, [place] vix, and Zocor. He is on a Lasix and metoprolol. He is on antibiotics. He is on spironolactone. I think he is on adequate therapy from a CHF standpoint. I would suggest Dr. Peterson and Dr. Sawant t hat we stop his amiodarone considering his pulmonary status. If he had any issues down the road with atrial fibrillation, I wou ld recommend an ablation. ENRIQUE/RYAN Voice ID: [id number] Report ID: [id number]
--- NOTE | 2020-07-27 08:26 | P.PN ---
Subjective Date of Service: 07/27/20 Chief Complaint: Shortness of breath// Subjective: Improving (Patient is doing much better lower extremity edema has decreased no hemoptysis) Review of Systems Respiratory: Shortness of Breath Cardiovascular: Edema Physical Examination - Vital Signs Temperature: 98.1 F Blood Pressure: 134/72 Pulse: 83 Respirations: 18 Pulse Ox (%): 97 - Physical Exam General: Alert, In no apparent distress, Oriented x3 Respiratory: Clear to auscultation bilaterally, Diminished Cardiovascular: Regular rate/rhythm, Normal S1 S2, Edema Assessment & Plan - Problems (Diagnosis) (1) Congestive heart failure Current Visit: Yes Status: Acute Plan: Patient is doing much better discharge on low-dose spironolactone 25 mg twice a day IV Lasix of 20 mg once a day as responded very well to spironolactone in the past that was recently stopped continue with bronchodilators and low-dose prednisone 10 mg twice a day for 10 days patient has a history of C difficile avoid all antibiotics except vancomycin if needed the resume his home medications as far as the left upper lobe opacities consent will need a follow- up with the oncologist probably another PET scan may have recurrence of his lung cancer labs reviewed echocardiogram pending
[2020-07-27] MEDS: FUROSEMIDE 40 MG/4 ML VIAL IV SCH ×2 (09:46→17:00)
[2020-07-27] MEDS: ENOXAPARIN 60 MG/0.6 ML SQ SCH (09:46)
[2020-07-27] MEDS: CALCIUM CARBONATE CHEW 500MG TAB PO SCH (09:46)
[2020-07-27] MEDS: MULTIVIT W/ MINERAL TAB PO SCH (09:47)
[2020-07-27] MEDS: MAGNESIUM OXIDE 400 MG TAB PO SCH (09:47)
[2020-07-27] MEDS: FOLIC ACID 1 MG TABLET PO SCH (09:47)
[2020-07-27] MEDS: ASPIRIN EC 81 MG TAB PO SCH (09:47)
[2020-07-27] MEDS: VITAMIN D 1000 UNIT TAB PO SCH (09:47)
[2020-07-27] MEDS: FERROUS SULFATE 325 MG TAB PO SCH (09:47)
[2020-07-27] MEDS: SPIRONOLACTONE 25 MG TABLET PO SCH ×2 (09:47→20:48)
[2020-07-27] MEDS: AMIODARONE HCL 200 MG TAB PO SCH (09:48)
[2020-07-27] MEDS: PANTOPRAZOLE 40MG TABLET PO SCH (09:48)
[2020-07-27] MEDS: CLOPIDOGREL 75 MG TABLET PO SCH (09:48)
[2020-07-27] MEDS: METOPROLOL XL 50 MG TAB PO SCH ×2 (09:48→20:48)
--- NOTE | 2020-07-27 12:35 | PN ---
Date of Progress Note: 07/27/2020 Subjective: This patient was admitted with CHF exacerbation, respiratory failure. The patient is be ing diuresed. Yesterday we increased the Lasix. Swelling has been subsided significantly. Physical Examination: Vital Signs: Blood pressure 134/72, pulse of 83. The patient had good urine output. The patient carr d hypoxemia after walking down to 76. Chest: Crackles on the left side. Heart: S1-S2, systolic murmur. Abdomen: Soft, nontender. Extremities: Trace edema. Neurologic: Alert. No focality. Laboratory Data: WBC 4, H and H 8/24, platelet 198. Sodium 140, potassium 3.5, bicarb 32, BUN 21, c reatinine 1.8, calcium 8.3. Current Medications: The patient on include, 1.Vancomycin IV and oral. 2.Plavix. 3.Lovenox. 4.Calcium carbonate. 5.Amiodarone. 6.Atorvastatin. 7.Metoprolol 50 b.i.d. 8.Spironolactone 25 b.i.d. 9.Gabapentin. 10.Lasix 40 t.i.d. 11.Pantoprazole. 12.Levothyroxine. Assessment And Plan: 1.Chronic kidney disease stage 4 secondary to cardiorenal. I am going to continue diuresis, look to me such being normal volume. I am going to go ahead and change the Lasix to oral and we will follow up the patient. 2.Healthcare-associated pneumonia. Continue current treatment. We will follow up with primary. 3.Gout. Continue allopurinol. 4.Pulmonary hypertension. Continue spironolactone. 5.Chronic obstructive pulmonary disease exacerbation with pneumonia as above. Follow up with Pulrah moody. 6.Clostridium difficile colitis. Continue oral vanc. LALITA/RYAN Voice ID: [id number] Report ID: [id number]
--- NOTE | 2020-07-27 15:12 | ECHO ---
HEIGHT: 5 ft 5 in WEIGHT: 123 lb 1.6 oz DATE OF STUDY: 07/27/[address]: Brenda Son MD 2-DIMENSIONAL: YES M.MODE: YES DOPPLER: YES COLOR FLOW: YES TDS: PORTABLE: DEFINITY: BUBBLE STUDY: DIAGNOSIS: CONGESTIVE HEART FAILURE CARDIAC HISTORY: CATHERIZATION: NO SURGERY: NO PROSTHETIC VALVE: NO PACEMAKER: NO MEASUREMENTS (cm) DIASTOLIC (NORMALS) SYSTOLIC (NORMALS) IVSd 1.1 (0.6-1.2) LA Diam 2.8 (1.9-4.0) LVEF 38% LVIDd 3.7 (3.5-5.7) LVIDs 3.0 (2.0-3.5) %FS 18% LVPWd 1.1 (0.6-1.2) Ao Diam 2.8 (2.0-3.7) 2 DIMENSIONAL ASSESSMENT: RIGHT ATRIUM: NORMAL LEFT ATRIUM: NORMAL RIGHT VENTRICLE: NORMAL LEFT VENTRICLE: MILDLY DEPRESSED EJECTION FRACTION TRICUSPID VALVE: MILD TRICUSPID REGURGITATION MITRAL VALVE: NORMAL PULMONIC VALVE: NORMAL AORTIC VALVE: NORMAL PERICARDIAL EFFUSION: NONE AORTIC ROOT: NORMAL LEFT VENTRICULAR WALL MOTION: MILD GLOBAL HYPOKINESIS. MODERATE ANTEROSEPTAL HYPOKINESIS. DOPPLER/COLOR FLOW: DIASTOLIC DYSFUNCTION COMMENTS: MILDLY DEPRESSED LEFT VENTRICULAR EJECTION FRACTION 40-45%. MILD GLOBAL HYPOKINESIS. MILD TRICUSPID REGURGITATION. TECHNOLOGIST: MICHEAL LEE
--- NOTE | 2020-07-27 15:56 | RAD REPORT ---
EXAM DESCRIPTION: Dorothy Single View07/27/2020 3:00 pm CLINICAL HISTORY: Hypoxia COMPARISON: July 26, 2020 FINDINGS: A left upper lobe mass is unchanged. Left volume loss Partial resolution in mild right interstitial lung opacities which may represent interstitial pulmona ry edema Heart size normal
[2020-07-27] MEDS: ATORVASTATIN 10 MG TAB PO SCH (20:49)
[2020-07-27] MEDS: allopurinoL 100 MG TAB PO SCH (20:49)
[2020-07-27] MEDS: CYCLOBENZAPRINE 10 MG TAB PO SCH (20:49)
[2020-07-28] MEDS ORDERED: VANCOMYCIN/NS 1 gm 1 GM/250 ML BAG IV SCH (03:00)
[2020-07-28] MEDS: LEVOTHYROXINE SOD 0.1 MG TAB PO SCH (05:31)
[2020-07-28] MEDS: VANCOMYCIN ORAL SOLN 250 MG/5 ML OSYR PO SCH ×3 (05:31→16:50)
[2020-07-28 06:22] LABS: Absolute Lymphocytes (CBC) 0.5 K/uL (0.7-4.9); Basophils % 1.1 % (0-1.3); Hematocrit 25.9 % (39.6-49.0); Lymphocytes % 15.4 % (15.3-44.8); MPV 8.4 fL (7.6-11.3)
[2020-07-28 06:40] LABS: Magnesium 2.3 mg/dL (1.8-2.4); Phosphorus 3.3 mg/dL (2.5-4.9); Potassium 3.5 mmol/L (3.5-5.1)
--- NOTE | 2020-07-28 08:01 | P.PN ---
Subjective Date of Service: 07/26/20 Subjective: No new changes, No C/O voiced, Improving Respiratory status is slowly improving; hypoxemia is improved Review of Systems 10-point ROS is otherwise unremarkable Physical Examination - Vital Signs Temperature: 98.7 F Blood Pressure: 119/70 Pulse: 80 Respirations: 16 Pulse Ox (%): 97 - Physical Exam General: Alert, In no apparent distress, Oriented x3 Respiratory: Diminished, Crackles/rales Cardiovascular: Regular rate/rhythm, Normal S1 S2, Systolic murmur Gastrointestinal: Normal bowel sounds, Soft and benign, Non-distended, No tenderness Musculoskeletal: Swelling Neurological: Normal strength at 5/5 x4 extr, Sensation intact, Cranial nerves 3-12 intact - Studies Medications List Reviewed: Yes Assessment & Plan - Problems (Diagnosis) (1) Shortness of breath Current Visit: Yes Status: Acute (2) Hypoxemia Current Visit: Yes Status: Acute (3) Hemoptysis Current Visit: Yes Status: Acute (4) Anasarca Current Visit: Yes Status: Acute (5) Healthcare-associated pneumonia Current Visit: Yes Status: Acute (6) Congestive heart failure, acute Current Visit: Yes Status: Acute (7) History of lung cancer Current Visit: Yes Status: Acute (8) Status post lobectomy of lung Current Visit: Yes Status: Acute (9) COPD exacerbation Onset Date: 04/27/18 Current Visit: No Status: Acute (10) Clostridium difficile colitis Current Visit: No Status: Acute (11) Elevated troponin Current Visit: No Status: Acute (12) Flash pulmonary edema Onset Date: 04/27/18 Current Visit: No Status: Acute - Plan Continue with plan of care as mentioned below 1. Continue with IV antibiotics/ continue oral vancomycin 2. Awaiting sputum and blood culture 3. Repeat chest x-ray 4. Outpatient stress test per Cardiology; cardiology consultation appreciated 5. Pulmonary consultation appreciated 6. Continue with nebs as needed 7. O2 per protocol 8. Heplock IV 9. Repeat labs including CBC and renal function in a.m. 10. Nephrology consultation appreciated; change IV Lasix to oral and possible prepare for discharge 11. Echocardiogram revealed severe systolic dysfunction; continue diuretics 12. Continue with Anti-platelet therapy, anti coagulation, beta-hannah, statin, and O2 as needed 13. GI and DVT prophylaxis Discharge Plan: Home Plan to discharge in: Greater than 2 days - Advance Directives Does patient have a Living Will: No Does patient have a Durable POA for Healthcare: No - Code Status/Comfort Care Code Status: Full Code Critical Care: No Time Spent Managing PTS Care (In Minutes): 35
--- NOTE | 2020-07-28 08:06 | P.PN ---
Subjective Date of Service: 07/27/20 Patient continues to improve. Room air O2 sat was around 92%. When he gets up and her some self it drops down to 87%. He has multiple comorbidities including congestive heart failure with ejection fraction of 38%. He also has a history of lung cancer with a lobectomy and severe COPD. Chest x-ray shows that the infiltrates have improved. They could been pulmonary edema in the diuretics have helped him. His lower extremity edema has improved as well. He is clinically doing better and he will need close outpatient follow with Cardiology, Pulmonary, and Nephrology. Diarrhea has improved as well. Anticipate discharge home in the morning. Review of Systems 10-point ROS is otherwise unremarkable Physical Examination - Vital Signs Temperature: 98.7 F Blood Pressure: 119/70 Pulse: 80 Respirations: 16 Pulse Ox (%): 97 - Physical Exam General: Alert, In no apparent distress, Oriented x3 Respiratory: Diminished, Expiratory wheezes, Rhonchi/gurgles Cardiovascular: Regular rate/rhythm, Normal S1 S2, Systolic murmur Gastrointestinal: Normal bowel sounds, Soft and benign, Non-distended, No tenderness Musculoskeletal: No clubbing, No swelling Neurological: Sensation intact, Cranial nerves 3-12 intact - Studies Medications List Reviewed: Yes Assessment & Plan - Problems (Diagnosis) (1) Shortness of breath Current Visit: Yes Status: Acute (2) Hypoxemia Current Visit: Yes Status: Acute (3) Hemoptysis Current Visit: Yes Status: Acute (4) Anasarca Current Visit: Yes Status: Acute (5) Healthcare-associated pneumonia Current Visit: Yes Status: Acute (6) Congestive heart failure, acute Current Visit: Yes Status: Acute (7) History of lung cancer Current Visit: Yes Status: Acute (8) Status post lobectomy of lung Current Visit: Yes Status: Acute (9) COPD exacerbation Onset Date: 04/27/18 Current Visit: No Status: Acute (10) Clostridium difficile colitis Current Visit: No Status: Acute (11) Elevated troponin Current Visit: No Status: Acute (12) Flash pulmonary edema Onset Date: 04/27/18 Current Visit: No Status: Acute - Plan Continue with plan of care as mentioned below 1. May change to oral antibiotics now to cover pneumonia/ continue oral van comycin 2. Cultures have been negative 3. Continue with out of bed and ambulating 4. Outpatient stress test per Cardiology; cardiology consultation appreciated 5. Pulmonary consultation appreciated 6. Continue with nebs as needed 7. O2 per protocol 8. Heplock IV 9. Outpatient physical therapy to strengthen patient's respiratory status 10. Nephrology consultation appreciated; change IV Lasix to oral and possible prepare for discharge 11. Echocardiogram revealed severe systolic dysfunction; continue diuretics 12. Continue with Anti-platelet therapy, anti coagulation, beta-hannah, statin, and O2 as needed 13. GI and DVT prophylaxis Discharge Plan: Home Plan to discharge in: 48 Hours - Advance Directives Does patient have a Living Will: No Does patient have a Durable POA for Healthcare: No - Code Status/Comfort Care Code Status: Full Code Critical Care: No Time Spent Managing PTS Care (In Minutes): 35
[2020-07-28] MEDS ORDERED: POTASSIUM 25 MEQ EFFERV TAB PO ONE (09:00)
[2020-07-28] MEDS: ENOXAPARIN 60 MG/0.6 ML SQ SCH (09:27)
[2020-07-28] MEDS: SPIRONOLACTONE 25 MG TABLET PO SCH ×2 (09:28→21:09)
[2020-07-28] MEDS: AMIODARONE HCL 200 MG TAB PO SCH (09:28)
[2020-07-28] MEDS: CALCIUM CARBONATE CHEW 500MG TAB PO SCH (09:28)
[2020-07-28] MEDS: ASPIRIN EC 81 MG TAB PO SCH (09:28)
[2020-07-28] MEDS: VITAMIN D 1000 UNIT TAB PO SCH (09:28)
[2020-07-28] MEDS: MAGNESIUM OXIDE 400 MG TAB PO SCH (09:29)
[2020-07-28] MEDS: FOLIC ACID 1 MG TABLET PO SCH (09:29)
[2020-07-28] MEDS: METOPROLOL XL 50 MG TAB PO SCH ×2 (09:29→21:08)
[2020-07-28] MEDS: FERROUS SULFATE 325 MG TAB PO SCH (09:29)
[2020-07-28] MEDS: PANTOPRAZOLE 40MG TABLET PO SCH (09:29)
[2020-07-28] MEDS: MULTIVIT W/ MINERAL TAB PO SCH (09:29)
[2020-07-28] MEDS: CLOPIDOGREL 75 MG TABLET PO SCH (09:29)
[2020-07-28] MEDS: FUROSEMIDE 40 MG/4 ML VIAL IV SCH (09:30)
--- NOTE | 2020-07-28 10:18 | P.PN ---
Subjective Date of Service: 07/28/20 Chief Complaint: Shortness of breath// Subjective A 64 Y/o man with PMHx of CKD IIIb/IV baseline Cr 2.2-2.4 , COPD, CHF on lasix and aldacotne , HTN , Afib and HX of remote Lung Ca Pt presented with SOB Today still have diarrhea wheezing on exam, will add nebulizer will change lasix to PO 80mg bid, pt was on 40mg daily Physical exam general: AAOX3, NAD , Neck; Supple, No elevated JVD hear: RRR, normal S1,2 no murmur or rub Chest: Wheezing Abdomen: Soft , Nt Extremities trace edema CKD IIIb/IV rdue to cardiorenal syndrome Cr baseline 2.2-2.4 , CT scan no hydro lasix as above renal dose meds COPD exacerbation Cont abx and inhalers C.diff diarrhea PO vancomycin CHF with pulmonary edema lasix as above NSTEMI trend troponin cardiology on board complex renal cysts W/U as an OP Physical Examination - Vital Signs Temperature: 98.7 F Blood Pressure: 141/68 Pulse: 77 Respirations: 16 Pulse Ox (%): 97 - Studies Medications List Reviewed: Yes
--- NOTE | 2020-07-28 11:33 | P.PN ---
Subjective Date of Service: 07/28/20 Chief Complaint: Shortness of breath Subjective: Improving (Patient is improving still complaining of dyspnea on mild exertion troponins elevated edema has subsided) Review of Systems General: Weakness Respiratory: Shortness of Breath Physical Examination - Vital Signs Temperature: 98.7 F Blood Pressure: 141/68 Pulse: 77 Respirations: 16 Pulse Ox (%): 97 - Physical Exam General: Alert, Oriented x3, Mild distress Respiratory: Crackles/rales, Expiratory wheezes Cardiovascular: Normal S1 S2, Edema - Studies Medications List Reviewed: Yes Assessment & Plan - Problems (Diagnosis) (1) Congestive heart failure Current Visit: Yes Status: Acute Plan: Patient admitted with congestive heart failure as underlying severe COPD intolerant to p.o. steroids also has an NSTEMI. Troponins elevated creatinine and also mildly elevated Lasix dose has been reduced overall prognosis is very poor may have recurrence of his lung cancer echocardiogram shows diminished ejection fraction saturation satisfactory vital signs stable he is on home oxygen possible discharge tomorrow if stable i an agreeable with cardiology
[2020-07-28] MEDS: ALBUTEROL 2.5 MG/3 ML NEB SOL NEB SCH ×2 (13:20→20:00)
[2020-07-28] MEDS: FUROSEMIDE 40 MG TABLET PO SCH (16:51)
[2020-07-28] MEDS: CYCLOBENZAPRINE 10 MG TAB PO SCH (21:09)
[2020-07-28] MEDS: ATORVASTATIN 10 MG TAB PO SCH (21:09)
[2020-07-28] MEDS: allopurinoL 100 MG TAB PO SCH (21:09)
[2020-07-29] MEDS: VANCOMYCIN ORAL SOLN 250 MG/5 ML OSYR PO SCH ×4 (00:28→16:59)
[2020-07-29] MEDS: ALBUTEROL 2.5 MG/3 ML NEB SOL NEB SCH ×4 (02:15→20:15)
[2020-07-29] MEDS: LEVOTHYROXINE SOD 0.1 MG TAB PO SCH (05:49)
[2020-07-29 06:14] LABS: Magnesium 2.5 mg/dL (1.8-2.4); Phosphorus 4.3 mg/dL (2.5-4.9); Potassium 3.8 mmol/L (3.5-5.1)
[2020-07-29] MEDS ORDERED: POTASSIUM CL SA 10 MEQ TAB PO ONE (09:00)
[2020-07-29] MEDS: ENOXAPARIN 60 MG/0.6 ML SQ SCH (09:34)
[2020-07-29] MEDS: FOLIC ACID 1 MG TABLET PO SCH (09:35)
[2020-07-29] MEDS: MULTIVIT W/ MINERAL TAB PO SCH (09:35)
[2020-07-29] MEDS: AMIODARONE HCL 200 MG TAB PO SCH (09:35)
[2020-07-29] MEDS: ASPIRIN EC 81 MG TAB PO SCH (09:35)
[2020-07-29] MEDS: MAGNESIUM OXIDE 400 MG TAB PO SCH (09:36)
[2020-07-29] MEDS: SPIRONOLACTONE 25 MG TABLET PO SCH ×2 (09:36→21:30)
[2020-07-29] MEDS: VITAMIN D 1000 UNIT TAB PO SCH (09:36)
[2020-07-29] MEDS: FERROUS SULFATE 325 MG TAB PO SCH (09:36)
[2020-07-29] MEDS: PANTOPRAZOLE 40MG TABLET PO SCH (09:36)
[2020-07-29] MEDS: METOPROLOL XL 50 MG TAB PO SCH ×2 (09:36→21:29)
[2020-07-29] MEDS: FUROSEMIDE 40 MG TABLET PO SCH ×2 (09:36→16:51)
[2020-07-29] MEDS: CALCIUM CARBONATE CHEW 500MG TAB PO SCH (09:37)
[2020-07-29] MEDS: CLOPIDOGREL 75 MG TABLET PO SCH (09:37)
--- NOTE | 2020-07-29 11:42 | P.PN ---
Subjective Date of Service: 07/29/20 Chief Complaint: Shortness of breath Subjective: Improving (Stillhas SOBOE. Edema decreased) Review of Systems Respiratory: Shortness of Breath Cardiovascular: Edema Physical Examination - Vital Signs Temperature: 97.8 F Blood Pressure: 113/61 Pulse: 77 Respirations: 18 Pulse Ox (%): 96 - Physical Exam General: Alert, In no apparent distress, Mild distress Respiratory: Expiratory wheezes Cardiovascular: Edema Gastrointestinal: Normal bowel sounds, Soft and benign - Studies Medications List Reviewed: Yes Assessment & Plan - Problems (Diagnosis) (1) Congestive heart failure Current Visit: Yes Status: Acute Plan: Doign better. Eleveated tropinins comb of CHF and renal failure. OP stress test as per cardiology. Creat worse. Rec D/C home on lasix 40 bid and spironolactone 25 bid. D/C IV vanc. Labs worse on Next week. To f/u wth me
[2020-07-29] MEDS ORDERED: ALBUMIN HUMAN 25% 100 ML IV ONE (18:27)
[2020-07-29] MEDS: ATORVASTATIN 10 MG TAB PO SCH (21:28)
[2020-07-29] MEDS: CYCLOBENZAPRINE 10 MG TAB PO SCH (21:28)
[2020-07-29] MEDS: allopurinoL 100 MG TAB PO SCH (21:35)
[2020-07-30] MEDS: VANCOMYCIN ORAL SOLN 250 MG/5 ML OSYR PO SCH ×2 (00:26→05:23)
[2020-07-30] MEDS: ALBUTEROL 2.5 MG/3 ML NEB SOL NEB SCH ×2 (01:20→07:45)
[2020-07-30] MEDS: LEVOTHYROXINE SOD 0.1 MG TAB PO SCH (05:24)
[2020-07-30 06:35] LABS: Absolute Lymphocytes (CBC) 0.4 K/uL (0.7-4.9); Basophils % 1.2 % (0-1.3); Hematocrit 29.5 % (39.6-49.0); Lymphocytes % 9.1 % (15.3-44.8); MPV 8.3 fL (7.6-11.3); RBC Red Blood Cell Count 3.63 M/uL (4.33-5.43)
[2020-07-30 06:46] LABS: Magnesium 2.7 mg/dL (1.8-2.4); Potassium 4.2 mmol/L (3.5-5.1)
[2020-07-30] MEDS: PANTOPRAZOLE 40MG TABLET PO SCH (08:38)
[2020-07-30] MEDS: ENOXAPARIN 60 MG/0.6 ML SQ SCH (08:38)
[2020-07-30] MEDS: SPIRONOLACTONE 25 MG TABLET PO SCH (08:39)
[2020-07-30] MEDS: ASPIRIN EC 81 MG TAB PO SCH (08:39)
[2020-07-30] MEDS: VITAMIN D 1000 UNIT TAB PO SCH (08:39)
[2020-07-30] MEDS: MULTIVIT W/ MINERAL TAB PO SCH (08:39)
[2020-07-30] MEDS: FERROUS SULFATE 325 MG TAB PO SCH (08:39)
[2020-07-30] MEDS: METOPROLOL XL 50 MG TAB PO SCH (08:39)
[2020-07-30] MEDS: CLOPIDOGREL 75 MG TABLET PO SCH (08:40)
[2020-07-30] MEDS: AMIODARONE HCL 200 MG TAB PO SCH (08:40)
[2020-07-30] MEDS: CALCIUM CARBONATE CHEW 500MG TAB PO SCH (08:40)
[2020-07-30] MEDS: FOLIC ACID 1 MG TABLET PO SCH (08:40)
[2020-07-30] MEDS: MAGNESIUM OXIDE 400 MG TAB PO SCH (08:40)
[2020-07-30 08:41] VITALS: BP 137/62
[2020-07-30 09:55] VITALS: TEMP 97.3
[2020-07-30 10:16] VITALS: O2SAT 94
--- NOTE | 2020-07-30 12:08 | PN ---
Date of Progress Note: 07/29/2020 Chief Complaint: Acute on chronic kidney injury, shortness of breath, hypoxemic respiratory failure. Subjective: Renal function has declined over the last 24 hours. The patient has chronic kidney dise ase stage 3/4. Baseline creatinine 2.2 to 2.4. The patient presented to the hospital because of terence rtness of breath, generalized weakness. He has remote history of lung cancer, atrial fibrillation, h ypertension, congestive heart failure, on Lasix and Aldactone. Baseline creatinine level was ranging from 2.2 to 2.4. The patient is feeling better. He has some diarrhea. Denies PND or orthopnea. Physical Examination: Lungs: Crackles bilaterally. No wheezing. Heart: S1, S2. No pericardial friction rub. Abdomen: Soft, benign. Extremities: Some edema present in both legs. Impression And Plan: 1.Congestive heart failure with diastolic dysfunction and fluid overload. Adjust diuretic for volum e control. 2.Chronic kidney disease stage 3/4 due to cardiorenal syndrome and benign nephrosclerosis. Continue low-sodium diet and Lasix for volemia control. Monitor blood pressure. Adjust treatment as needed. 3.Clostridium difficile diarrhea. P.o. vancomycin was started. Continue current treatment. 4.Chronic obstructive pulmonary disease exacerbation, on antibiotic and inhalers. 5.Hypertension. Continue low-sodium diet. 6.Congestive heart failure with pulmonary edema, hypertensive heart and kidney disease. Continue me dication for blood pressure control and monitor fluid balance. Adjust diuretic for adequate volemia control. Monitor renal function and adjust treatment to prevent prerenal azotemia. 7.Non-ST elevation myocardial infarction. Monitor troponin levels. The patient will follow up with Cardiology. 8.Complex renal cyst. The patient will follow up outpatient with Nephrology and Urology. ABILIO/MODL Voice ID: [id number] Report ID: [id number]
--- NOTE | 2020-07-30 22:21 | PN ---
Date of Progress Note: 07/30/2020 Chief Complaint: Acute on chronic kidney injury, shortness of breath, hypoxemic respiratory failure. Subjective: Renal function has declined over last 24 hours. I reviewed previous medications. Lasix and Aldactone dose were reduced. Creatinine baseline is ranging from 2.2 to 2.4. Review of Systems: Denies fever, chills. Physical Examination: Lungs: Diminished breath sounds at bases. Heart: S1, S2. Abdomen: Soft, benign. Extremities: Some edema present in both legs. Impression And Plan: 1.Congestive heart failure with diastolic dysfunction and fluid overload. Adjust diuretic. Monitor renal function. Avoid nephrotoxic medication. 2.Chronic kidney disease, stage 3/4 due to cardiorenal syndrome and benign nephrosclerosis. The pat ient was started on Lasix for congestive heart failure. 3.Clostridium difficile diarrhea. The patient is on vancomycin. Continue current treatment. 4.Chronic obstructive pulmonary disease with exacerbation, on antibiotic and inhalers. 5.Hypertension. Continue low-sodium diet. 6.Congestive heart failure with pulmonary edema, hypertensive heart and kidney disease. The patient is on blood pressure medications and diuretics. Non-ST elevation myocardial infarction per Cardiolo gy. 7.Complex renal cyst. The patient will follow up outpatient with Nephrology and Urology. EB/MODL Voice ID: [id number] Report ID: [id number]
== END 2020-07-30 11:01 | disposition home or self-care (01) | DRG 280 ==
LOC: ER 10:14 → ERHOLD 13:45 → 2ND 15:19
PROVIDERS: ADMIT Hospitalist; ATTEND Hospitalist
DX: I13.0 Hypertensive heart and chronic kidney disease with heart failure and stage 1 through stage 4 chronic kidney disease, or unspecified chronic kidney disease (principal); I50.33 Acute on chronic diastolic (congestive) heart failure; I21.4 Non-ST elevation (NSTEMI) myocardial infarction; J18.9 Pneumonia, unspecified organism; N18.4 Chronic kidney disease, stage 4 (severe); A04.72 Enterocolitis due to Clostridium difficile, not specified as recurrent; J44.1 Chronic obstructive pulmonary disease with (acute) exacerbation; N17.9 Acute kidney failure, unspecified; R04.2 Hemoptysis; J44.0 Chronic obstructive pulmonary disease with (acute) lower respiratory infection; N28.1 Cyst of kidney, acquired; E78.5 Hyperlipidemia, unspecified; Z85.118 Personal history of other malignant neoplasm of bronchus and lung; Z87.891 Personal history of nicotine dependence; Z79.01 Long term (current) use of anticoagulants; Z79.890 Hormone replacement therapy; Z79.899 Other long term (current) drug therapy; E87.6 Hypokalemia; Z99.81 Dependence on supplemental oxygen; R09.02 Hypoxemia; Z92.21 Personal history of antineoplastic chemotherapy; Z92.3 Personal history of irradiation; R60.1 Generalized edema; R79.89 Other specified abnormal findings of blood chemistry; K21.9 Gastro-esophageal reflux disease without esophagitis; E03.9 Hypothyroidism, unspecified; D64.9 Anemia, unspecified; M10.9 Gout, unspecified; I27.20 Pulmonary hypertension, unspecified; Z20.828 Contact with and (suspected) exposure to other viral communicable diseases
CPT/HCPCS: 36415; 71045; 71250; 80048; 80053; 80061; 80202; 83605; 83735; 83880; 84100; 84132; 84145; 84484; 85025; 85379; 85610; 87040; 93005; 93306; 94640; 99285; J1650; J1940; J3370; J3480; J7050; P9047; U0002

== ENCOUNTER 2020-08-03 15:09 | Inpatient (IN) | payer BC, OTHER ==
[2020-08-03] MEDS ORDERED: NA CHLORIDE 0.9% 500 ML ONE ×2 (16:32→18:13)
[2020-08-03 16:39] LABS: Protime INR 1.33
[2020-08-03 16:55] LABS: Absolute Lymphocytes (CBC) 0.3 K/uL (0.7-4.9); Basophils % 0.4 % (0-1.3); Lymphocytes % 2.4 % (15.3-44.8)
[2020-08-03 17:01] LABS: Hematocrit 26.5 % (39.6-49.0); MPV 9.3 fL (7.6-11.3); RBC Red Blood Cell Count 3.28 M/uL (4.33-5.43)
[2020-08-03 17:02] LABS: Bilirubin Direct 0.1 mg/dL (0-0.2); Bilirubin Total 0.4 mg/dL (0.2-1.0); Magnesium 2.7 mg/dL (1.8-2.4); Potassium 4.2 mmol/L (3.5-5.1); Protein, Total 7.5 g/dL (6.4-8.2); Troponin (Emerg Dept Use Only) 0.02 ng/mL (0.0-0.045)
[2020-08-03 17:35] LABS: Anisocytosis 1+; Blood Morphology Comment NOTED (NOT SEEN); Platelet Estimate ADEQ
--- NOTE | 2020-08-03 17:46 | ER ---
Nurse's Notes [facility] Name: Angelo Narvaez Age: 64 yrs Sex: Male : 1955 Arrival Date: 08/03/2020 Time: 15:17 Bed 3 Private MD: Diagnosis: Acute kidney failure;Pneumonia due to other specified bacteria Presentation: 08/03 15:25 Chief complaint: Patient states: BP 80's systolic, O2 86% 2LNC. Weak, fatigue, pale, ll1 SOB, dizzy for 2 days. Fever 101.9 at home. Coronavirus screen: Client denies travel out of the [place] in the last 14 days. At this time, the client does not indicate any symptoms associated with coronavirus-19. The client reports previous COVID testing was negative. Ebola Screen: Patient denies travel to an Ebola-affected area in the 21 days before illness onset. Initial Sepsis Screen: Does the patient meet any 2 criteria? No. Patient's initial sepsis screen is negative. Risk Assessment: Do you want to hurt yourself or someone else? Patient reports no desire to harm self or others. Onset of symptoms was August 02, 2020. 15:25 Method Of Arrival: Wheelchair ll1 15:25 Acuity: STEPHIE 2 ll1 19:16 Initial Sepsis Screen: Does the patient have a suspected source of infection? Yes:. ea Triage Assessment: 19:16 Respiratory: the patient reports symptoms have resolved. ea Historical: - Allergies: 15:28 Prednisone; ll1 - PMHx: 15:28 Gout; Pneumothorax; Lung Cancer; HTN; Rheumatoid Arthritis; kidney disease; COPD; ll1 C-diff; Atrial Fib; - PSHx: 15:28 Appendectomy; Lobectomy, Left upper lobe; ll1 - Immunization history:: Flu vaccine is up to date. - Social history:: Smoking status: Patient/guardian denies using tobacco, the patient reports quitting approximately 4 years ago. Screenin:49 Abuse screen: Denies threats or abuse. Denies injuries from another. Nutritional ss screening: No deficits noted. Tuberculosis screening: Never had TB. Fall Risk No fall in past 12 months (0 pts). Secondary diagnosis (15 points) Continuous home O2. IV access (20 points). Ambulatory Aid- None/Bed Rest/Nurse Assist (0 pts). Gait- Normal/Bed Rest/Wheelchair (0 pts) Mental Status- Oriented to own ability (0 pts). Assessment: 16:00 General: Appears in no apparent distress. comfortable, Behavior is calm, cooperative. ss General: Reports fatigue for 12-24 hours, Denies fever, chills. Pain: Complains of pain in back Pain currently is 2 out of 10 on a pain scale. Quality of pain is described as aching, Is chronic. Neuro: Level of Consciousness is awake, alert, obeys commands, Oriented to person, place, time, situation. Cardiovascular: Capillary refill is brisk in bilateral fingers Rhythm is sinus rhythm. Respiratory: Airway is patent Trachea midline Respiratory effort is even, unlabored, Respiratory pattern is regular, symmetrical. Respiratory: Reports increased SOB on exertion. Cough that is chronic has not gotten worse. absent breath sound in L upper lobe due to lobectomy. Bilateral course breath sounds noted with exhale. GI: Patient currently denies diarrhea, nausea, vomiting. : No signs and/or symptoms were reported regarding the genitourinary system. EENT: Oral mucosa is moist. Throat is clear. Derm: Skin is pink, warm \T\ dry. Musculoskeletal: Circulation, motion, and sensation intact. Range of motion: intact in all extremities, Swelling absent. 16:51 Reassessment: Patient appears in no apparent distress at this time. Patient and/or ss family updated on plan of care and expected duration. Pain level reassessed. 19:20 General: Appears in no apparent distress. comfortable, Behavior is calm, cooperative. ea Pain: Denies pain. Neuro: Level of Consciousness is awake, alert, obeys commands, Oriented to person, place, time, situation. Cardiovascular: Patient's skin is warm and dry. Respiratory: Airway is patent Respiratory effort is even, unlabored, Respiratory pattern is regular, symmetrical. Derm: Skin is pink, warm \T\ dry. 19:31 Reassessment: Report called to receiving nurse on second floor. Pt tolerating well. ea 20:26 Reassessment: Patient and/or family updated on plan of care and expected duration. Pain rv level reassessed. Patient is alert, oriented x 3, equal unlabored respirations, skin warm/dry/pink. Pt admitted to second floor, pt left ED via wheelchair per tech. Pt tolerating well. Vital Signs: 15:25 BP 93 / 67; Pulse 86; Resp 18; Temp 98.0; Pulse Ox 99% on 2 lpm NC; Weight 55.79 kg; ll1 Height 5 ft. 5 in. (165.10 cm); Pain 3/10; 16:00 Pulse Ox 100% on 2 lpm NC; ss 16:49 BP 116 / 65; Pulse 71; ss 15:25 Body Mass Index 20.47 (55.79 kg, 165.10 cm) ll1 ED Course: 15:17 Patient arrived in ED. ds1 15:27 Triage completed. ll1 15:28 Arm band placed on Patient placed in an exam room, on a stretcher. ll1 15:32 Mateusz Calles PA is PHCP. jr8 15:32 Dallas Ansari MD is Attending Physician. jr8 15:55 Josiah Tovar, NIK is Primary Nurse. em 16:16 Missed attempt(s): 22 gauge in right forearm. Bleeding controlled, band aid applied, ss catheter tip intact. 16:39 XRAY Chest (1 view) In Process Unspecified. EDMS 16:49 Patient has correct armband on for positive identification. Placed in gown. Bed in low ss position. Call light in reach. Side rails up X 1. gas line repairer on. Pulse ox on. NIBP on. Warm blanket given. 16:49 EKG done, by ED staff, reviewed by Mateusz JOSEPH. dh3 17:00 Missed attempt(s): 20 gauge in left antecubital area. Bleeding controlled, band aid dh3 applied, catheter tip intact. 17:05 Inserted saline lock: 22 gauge in left forearm, using aseptic technique. dh3 17:45 Joaquin Kuo DO is Hospitalizing Provider. jr8 19:16 No provider procedures requiring assistance completed. Patient admitted, IV remains in ea place. 19:28 Rp Exam Complete US In Process Unspecified. EDMS Administered Medications: 17:06 Drug: NS 0.9% 500 ml Route: IV; Rate: bolus; Site: left forearm; ss 19:00 Follow up: Response: No adverse reaction; IV Status: Completed infusion; IV Intake: rv 500ml 17:49 Not Given (Physician Discretion): Rocephin 1 grams IV at calculated rate once; Given jr8 slow IV push per pharmacy instructions 17:49 Not Given (Physician Discretion): Zithromax 500 mg IVPB once over 1 hrs; mix in 250 mL jr8 NS 18:06 Drug: LevaQUIN 500 mg Volume: 100 ml; Route: IVPB; Infused Over: 60 mins; Site: left ss antecubital; 19:11 Follow up: IV Status: Completed infusion; IV Intake: 100ml rv 18:06 Drug: NS 0.9% 1000 ml Route: IV; Rate: 50 ml/hr; Site: left antecubital; ss 20:28 Follow up: Response: No adverse reaction; IV Status: Completed infusion; IV Intake: rv 500ml 19:12 Drug: Cefepime 2 grams Route: IVPB; Rate: 200 ml/hr; Infused Over: 30 mins; Site: left rv forearm; 19:12 Follow up: IV Status: Completed infusion; IV Intake: 20ml rv 19:13 Drug: vancoMYCIN 1 grams Route: IVPB; Infused Over: 2 hrs; Site: left forearm; rv Intake: 19:00 IV: 500ml; Total: 500ml. rv 19:11 IV: 100ml; Total: 600ml. rv 19:12 IV: 20ml; Total: 620ml. rv 20:28 IV: 500ml; Total: 1120ml. rv Outcome: 17:46 Decision to Hospitalize by Provider. jr8 19:16 Discharge instructions given to patient, Instructed on the need for admit. ea 19:30 Admitted to Med/surg accompanied by nurse, room 217, with chart, Report called to ea Receiving nurse on second floor 19:30 Condition: stable 20:27 Patient left the ED. rv Signatures: Dispatcher [employer] EDIL Josiah Tovar, RN Prema Coronado ds1 Erin Tracey RN RN Mateusz Calles PA PA jr8 Silvia Humphrey 3 Sima Jack RN RN ea Vicente, Ronaldo, RN RN rv Lewis, Lynsay, RN RN ll1
--- NOTE | 2020-08-03 17:46 | EDPHYS ---
Physician Documentation [facility] Name: Angelo Narvaez Age: 64 yrs Sex: Male : 1955 Arrival Date: 08/03/2020 Time: 15:17 Bed 3 Private MD: ED Physician Dallas Ansari HPI: 08/03 17:21 This 64 yrs old Male presents to ER via Wheelchair with complaints of Low BP, jr8 Breathing Difficulty. 17:21 The patient has shortness of breath at rest. Onset: The symptoms/episode began/occurred jr8 gradually, 2 day(s) ago, and became worse. Duration: The symptoms are continuous. The patient's shortness of breath is aggravated by light activity. Associated signs and symptoms: Pertinent positives: dizziness. Severity of symptoms: At their worst the symptoms were moderate in the emergency department the symptoms are unchanged. The patient has not experienced similar symptoms in the past. The patient has not recently seen a physician. Patient stated that his BP has been low. Has had general weakness and dizziness. Noted that he now is having increased shortness of breath as well as fever for last couple of days . Historical: - Allergies: 15:28 Prednisone; ll1 - PMHx: 15:28 Gout; Pneumothorax; Lung Cancer; HTN; Rheumatoid Arthritis; kidney disease; COPD; ll1 C-diff; Atrial Fib; - PSHx: 15:28 Appendectomy; Lobectomy, Left upper lobe; ll1 - Immunization history:: Flu vaccine is up to date. - Social history:: Smoking status: Patient/guardian denies using tobacco, the patient reports quitting approximately 4 years ago. ROS: 17:21 Eyes: Negative for injury, pain, redness, and discharge, ENT: Negative for injury, jr8 pain, and discharge, Neck: Negative for injury, pain, and swelling, Cardiovascular: Negative for chest pain, palpitations, and edema, Abdomen/GI: Negative for abdominal pain, nausea, vomiting, diarrhea, and constipation, Back: Negative for injury and pain, MS/Extremity: Negative for injury and deformity, Skin: Negative for injury, rash, and discoloration. 17:21 Respiratory: Positive for cough, dyspnea on exertion, shortness of breath, wheezing. 17:21 Neuro: Positive for dizziness, weakness. 17:21 Constitutional: Positive for fever. jr8 Exam: 17:21 Eyes: Pupils equal round and reactive to light, extra-ocular motions intact. Lids and jr8 lashes normal. Conjunctiva and sclera are non-icteric and not injected. Cornea within normal limits. Periorbital areas with no swelling, redness, or edema. ENT: Nares patent. No nasal discharge, no septal abnormalities noted. Tympanic membranes are normal and external auditory canals are clear. Oropharynx with no redness, swelling, or masses, exudates, or evidence of obstruction, uvula midline. Mucous membranes moist. Neck: Trachea midline, no thyromegaly or masses palpated, and no cervical lymphadenopathy. Supple, full range of motion without nuchal rigidity, or vertebral point tenderness. No Meningismus. Cardiovascular: Regular rate and rhythm with a normal S1 and S2. No gallops, murmurs, or rubs. Normal PMI, no JVD. No pulse deficits. Abdomen/GI: Soft, non-tender, with normal bowel sounds. No distension or tympany. No guarding or rebound. No evidence of tenderness throughout. Back: No spinal tenderness. No costovertebral tenderness. Full range of motion. Skin: Warm, dry with normal turgor. Normal color with no rashes, no lesions, and no evidence of cellulitis. MS/ Extremity: Pulses equal, no cyanosis. Neurovascular intact. Full, normal range of motion. Neuro: Awake and alert, GCS 15, oriented to person, place, time, and situation. Cranial nerves II-XII grossly intact. Motor strength 5/5 in all extremities. Sensory grossly intact. Cerebellar exam normal. Normal gait. 17:21 Respiratory: the patient does not display signs of respiratory distress, Respirations: normal, Breath sounds: decreased breath sounds, that are moderate, are located in both bases, wheezing: expiratory that is mild, is heard diffusely. Vital Signs: 15:25 BP 93 / 67; Pulse 86; Resp 18; Temp 98.0; Pulse Ox 99% on 2 lpm NC; Weight 55.79 kg; ll1 Height 5 ft. 5 in. (165.10 cm); Pain 3/10; 16:00 Pulse Ox 100% on 2 lpm NC; ss 16:49 BP 116 / 65; Pulse 71; ss 15:25 Body Mass Index 20.47 (55.79 kg, 165.10 cm) ll1 MDM: 15:40 Patient medically screened. [facility] [place] 17:44 Data reviewed: vital signs, nurses notes, lab test result(s), EKG, radiologic studies, jr8 plain films. Data interpreted: Pulse oximetry: on 2L(s) per nasal canula, is 98 %. Interpretation: acceptable. 17:44 Counseling: I had a detailed discussion with the patient and/or guardian regarding: the [facility] [place] historical points, exam findings, and any diagnostic results supporting the discharge/admit diagnosis, lab results, radiology results, the need for further work-up and treatment in the hospital. 08/03 15:40 Order name: Basic Metabolic Panel; Complete Time: 17:07 [facility] [place] 08/03 15:40 Order name: CBC with Diff [facility] [place] 08/03 15:40 Order name: LFT's; Complete Time: 17:07 [facility] [place] 08/03 15:40 Order name: Magnesium; Complete Time: 17:07 [facility] [place] 08/03 15:40 Order name: NT PRO-BNP; Complete Time: 17:07 [facility] [place] 08/03 15:40 Order name: PT-INR; Complete Time: 17:07 [facility] [place] 08/03 15:40 Order name: Troponin (emerg Dept Use Only); Complete Time: 17:07 [facility] [place] 08/03 15:55 Order name: Blood Culture Adult (2) [facility] [place] 08/03 15:55 Order name: Procalcitonin; Complete Time: 17:23 [facility] [place] 08/03 15:55 Order name: Influenza Screen (a \T\ B); Complete Time: 18:36 [facility] [place] 08/03 16:31 Order name: C-Reactive Protein; Complete Time: 17:07 EDDC 08/03 17:30 Order name: SARS-COV-2 RT PCR; Complete Time: 18:59 EDMS 08/03 15:40 Order name: XRAY Chest (1 view) [facility] [place] 08/03 15:40 Order name: EKG; Complete Time: 15:41 8 08/03 15:40 Order name: Cardiac monitoring; Complete Time: 16:49 8 08/03 15:40 Order name: EKG - Nurse/Tech; Complete Time: 16:49 8 08/03 15:40 Order name: IV Saline Lock; Complete Time: 17:06 8 08/03 17:34 Order name: Manual Differential [facility] 08/03 17:53 Order name: Uric Acid; Complete Time: 19:8 08/03 17:53 Order name: CK; Complete Time: 19:8 08/03 17:54 Order name: Rp Exam Complete US 08/03 15:40 Order name: Labs collected and sent; Complete Time: 15:56 8 08/03 15:40 Order name: O2 Per Protocol; Complete Time: 15:56 08/03 15:40 Order name: O2 Sat Monitoring; Complete Time: 15:56 Administered Medications: 17:06 Drug: NS 0.9% 500 ml Route: IV; Rate: bolus; Site: left forearm; ss 19:00 Follow up: Response: No adverse reaction; IV Status: Completed infusion; IV Intake: rv 500ml 17:49 Not Given (Physician Discretion): Rocephin 1 grams IV at calculated rate once; Given [facility] [place] slow IV push per pharmacy instructions 17:49 Not Given (Physician Discretion): Zithromax 500 mg IVPB once over 1 hrs; mix in 250 mL [facility] [place] NS 18:06 Drug: LevaQUIN 500 mg Volume: 100 ml; Route: IVPB; Infused Over: 60 mins; Site: left ss antecubital; 19:11 Follow up: IV Status: Completed infusion; IV Intake: 100ml rv 18:06 Drug: NS 0.9% 1000 ml Route: IV; Rate: 50 ml/hr; Site: left antecubital; ss 20:28 Follow up: Response: No adverse reaction; IV Status: Completed infusion; IV Intake: rv 500ml 19:12 Drug: Cefepime 2 grams Route: IVPB; Rate: 200 ml/hr; Infused Over: 30 mins; Site: left rv forearm; 19:12 Follow up: IV Status: Completed infusion; IV Intake: 20ml rv 19:13 Drug: vancoMYCIN 1 grams Route: IVPB; Infused Over: 2 hrs; Site: left forearm; rv Disposition: 08/04 09:06 Co-signature as Attending Physician, Dallas Ansari MD I agree with the assessment and kdr plan of care. Disposition: 08/03/20 17:46 Hospitalization ordered by Joaquin Kuo for Inpatient Admission. Preliminary diagnosis are Acute kidney failure, Pneumonia due to other specified bacteria. - Bed requested for Telemetry/MedSurg (Inpatient). - Status is Inpatient Admission. rv - Condition is Stable. - Problem is new. - Symptoms have improved. Signatures: Dispatcher [employer] EDDC Dallas Ansari MD MD [facility] Erin Tracey RN RN Mateusz Calles PA PA jr8 Lizzie Javed, RN RN Froy Fuller, RN RN rv Catracho Paula RN RN ll1 Corrections: (The following items were deleted from the chart) 08/03 16:31 15:55 C-REACTIVE PROTEIN+C.LAB.BRZ ordered. EDMS EDMS 17:30 15:55 CORONAVIRUS+MR.LAB.BRZ ordered. EDDC EDMS 17:45 17:44 Data interpreted: Pulse oximetry: on 8 jr8 18:59 17:46 Hospitalization Ordered by Joaquin Kuo DO for Inpatient Admission. Preliminary cg diagnosis is Acute kidney failure; Pneumonia due to other specified bacteria. Bed requested for Telemetry/MedSurg (Inpatient). Status is Inpatient Admission. Condition is Stable. Problem is new. Symptoms have improved. jr8 20:27 18:59 08/03/2020 17:46 Hospitalization Ordered by Joaquin Kuo DO for Inpatient rv Admission. Preliminary diagnosis is Acute kidney failure; Pneumonia due to other specified bacteria. Bed requested for Telemetry/MedSurg (Inpatient). Status is Inpatient Admission. Condition is Stable. Problem is new. Symptoms have improved. cg
[2020-08-03] MEDS ORDERED: AZITHROMYCIN IV 500 MG in NA CHLORIDE 0.9% 250 ML IVPB ONE (18:00)
[2020-08-03] MEDS ORDERED: Levofloxacin500mg IV 500 MG/100 ML BAG IV ONE (18:13)
[2020-08-03 18:49] LABS: Uric Acid 7.4 mg/dL (3.5-7.2)
[2020-08-03] MEDS ORDERED: VANCOMYCIN/NS 1 gm 1 GM/250 ML BAG IVPB ONE (19:00)
[2020-08-03] MEDS ORDERED: CEFEPIME/SWI 2gm 2 GM/20 ML SYR IVP ONE (19:00)
--- NOTE | 2020-08-03 20:19 | P.HP ---
Certification for Inpatient Patient admitted to: Inpatient With expected LOS: >2 Midnights Patient will require the following post-hospital care: None Practitioner: I am a practitioner with admitting privileges, knowledge of patient current condition, hospital course, and medical plan of care. Services: Services provided to patient in accordance with Admission requirements found in Title 42 Section 412.3 of the Code of Federal Regulations <Dudley Morgan - Last Filed: 08/03/20 20:13> Patient admitted to: Inpatient <Joaquin Kuo - Last Filed: 08/04/20 12:32> Patient History Date of Service: 08/03/20 Primary Care Provider: Dr. Wilkins Reason for admission: Acute renal failure, health-care acquired pneumonia History of Present Illness: 64-year-old male with history of chronic systolic congestive heart failure, COPD, chronic kidney disease, history of lung cancer status post lobectomy left upper lobe, hyperlipidemia, anxiety, hypertension, gout, paroxysmal atrial fibrillation on chronic anticoagulation therapy presents emergency department for increasing shortness of breath. Patient was recently admitted to the hospital for acute on chronic CHF exacerbation with acute kidney injury. Patient was diuresed and discharged. Patient noticed he had had increasing shortness of breath over the course of the last 1-2 days with low- grade fever around 100. Patient today is that he is having to use his whole oxygen nasal cannula more frequently, patient reports he usually only needs it at night if that he had been using it throughout the day at 2 L. patient presented to Labor department for further evaluation and management.Patient's workup in the emergency department was significant for acute renal failure with creatinine of 3.65, GFR 17, BUN 43. Elevated white blood cell count at 13.4, hemoglobin 8.6, hematocrit 26.5. Pro calcitonin 0.69, C-reactive protein 189. BNP was also elevated at 2700. Chest x-ray reportedly shows a right lower lobe pneumonia, chest x-ray is unable to review at this time due to problems with PACs. ED prior wishes to admit patient for further evaluation and management given acute renal failure and hospital-acquired pneumonia. Patient given vancomycin, cefepime, Levaquin in the emergency department. Nephrology was consulted while patient is in the emergency department recommended normal saline at 50 cc/hour for total of 1500 cc. Patient also had a renal ultrasound. When I saw the patient in the emergency department is awake, alert, oriented x3. Patient is satting well on nasal cannula, afebrile, not tachycardic or hypotensive. Patient does not appear septic at this time. Patient be admitted for further evaluation and management. - Past Medical/Surgical History Diabetic: No -: Hypertension -: COPD -: Atrial fibrillation on chronic anticoagulation therapy -: Lung cancer(does not know which type) -: Gout -: Chronic diastolic congestive heart failure -: Chronic kidney disease stage 4 -: left upper lung lobectomy with lymph node resection -: appendectomy -: tonsillectomy Psychosocial/ Personal History: . Currently lives at home with his - Family History Father -: Heart disease, Hypertension Notes: at 75 yo Mother -: Cancer Notes: no medical history, still living Brother -: Hypertension, Cancer Notes: melanoma Sister -: Other (see notes) Notes: fibromyalgia - Social History Smoking Status: Former smoker Alcohol use: No CD- Drugs: No Caffeine use: Yes Place of Residence: Home <Dudley Morgan - Last Filed: 08/03/20 20:13> Date of Service: 08/04/20 Home medications list reviewed: Yes - Past Medical/Surgical History -: Iron deficiency anemia -: Hypothyroidism <Joaquin Kuo - Last Filed: 08/04/20 12:32> Allergies prednisone Adverse Reaction (Verified 08/03/20 22:01) Shortness of breath Home Medications: Acetaminophen/Diphenhydramine [Tylenol Pm Ex-Strength Caplet] 2 tab PO BEDTIME PRN 07/07/20 Albuterol Sulfate [Proair Hfa] 1 puff IH PRN PRN 07/07/20 Aspirin Chewable [Aspirin Chewable*] 81 mg PO DAILY 07/07/20 Cholecalciferol (Vitamin D3) [Vitamin D3] 2,000 unit PO DAILY 07/07/20 Cyclobenzaprine [Flexeril*] 5 mg PO BEDTIME PRN 07/07/20 Ferrous Sulfate [Ferrous Sulfate*] 325 mg PO DAILY 07/07/20 Fluticasone/Umeclidin/Vilanter [Trelegy Ellipta 100-62.5-25] 1 puff IH DAILY 07/07/20 Folic Acid 3 mg PO DAILY 07/07/20 Gabapentin [Neurontin*] 300 mg PO BID PRN 07/07/20 Ipratropium/Albuterol Sulfate [Iprat-Albut 0.5-3(2.5) mg/3 ml] 1 inh IH BIDP PRN 07/07/20 LORazepam [Ativan*] 0.5 mg PO BEDTIME PRN 07/07/20 Levothyroxine [Synthroid*] 0.1 mg PO [id number] 07/07/20 Magnesium Oxide [Magnesium] 400 mg PO DAILY 07/07/20 Metoprolol Succinate [Toprol Xl*] 50 mg PO BID 07/07/20 Multivitamin with Minerals [One Daily Plus Minerals] 1 tab PO DAILY 07/07/20 Omeprazole [Prilosec] 40 mg PO [id number] 07/07/20 Rivaroxaban [Xarelto*] 15 mg PO BEDTIME 07/07/20 allopurinoL [Zyloprim*] 100 mg PO BEDTIME 07/07/20 Simvastatin 20 mg PO BEDTIME 07/25/20 Calcium Carbonate [Tums Regular*] 1,000 mg PO DAILY #30 tab 07/28/20 Clopidogrel Bisulfate [Plavix*] 75 mg PO DAILY #30 tablet 07/28/20 Furosemide [Lasix] 40 mg PO BID #60 07/28/20 Spironolactone [Aldactone*] 25 mg PO DAILY #30 tab 07/28/20 Acetaminophen 500 mg PO DAILY PRN 08/03/20 L.acidoph,Paracasei, B.lactis [Probiotic] 1 each PO DAILY 08/03/20 Leflunomide 20 mg PO BEDTIME 08/03/20 dexAMETHasone [Dexamethasone] 2 mg PO DAILYPRN PRN 08/03/20 Review of Systems 10-point ROS is otherwise unremarkable General: Fever, Chills, Malaise Respiratory: Cough, Shortness of Breath <Dudley Morgan - Last Filed: 08/03/20 20:13> Physical Examination - Physical Exam General: Alert, In no apparent distress, Oriented x3 HEENT: Atraumatic, Normocephalic, PERRLA Neck: Supple Respiratory: Diminished, Inspiratory wheezes Cardiovascular: No edema, Normal pulses, Normal S1 S2 Capillary refill: <2 Seconds Gastrointestinal: No tenderness, No rebound, No guarding Musculoskeletal: No erythema, No tenderness Integumentary: No significant lesion, No tenderness/swelling, No erythema Neurological: Normal speech, Normal strength at 5/5 x4 extr, Normal affect - Studies Laboratory Data (last 24 hrs) 08/03/20 16:16: Uric Acid 7.4 H D 08/03/20 16:16: PT 15.6 H, INR 1.33 08/03/20 16:16: WBC 13.4 H D, Hgb 8.6 L, Hct 26.5 L, Plt Count 355 D 08/03/20 16:16: Sodium 133 L, Potassium 4.2, BUN 43 H, Creatinine 3.65 H, Glucose 163 H, Magnesium 2.7 H, Total Bilirubin 0.4, AST 13 L, ALT 14, Alkaline Phosphatase 77 Microbiology Data (last 24 hrs): 08/03/20 16:25 Nasopharnyx Influenza Type A Antigen Screen - Final 08/03/20 16:25 Nasopharnyx Influenza Type B Antigen Screen - Final <Dudley Morgan - Last Filed: 08/03/20 20:13> - Studies Laboratory Data (last 24 hrs) 08/03/20 16:16: Uric Acid 7.4 H D 08/03/20 16:16: PT 15.6 H, INR 1.33 08/03/20 16:16: WBC 13.4 H D, Hgb 8.6 L, Hct 26.5 L, Plt Count 355 D 08/03/20 16:16: Sodium 133 L, Potassium 4.2, BUN 43 H, Creatinine 3.65 H, Glucose 163 H, Magnesium 2.7 H, Total Bilirubin 0.4, AST 13 L, ALT 14, Alkaline Phosphatase 77 Microbiology Data (last 24 hrs): 08/03/20 16:25 Nasopharnyx Influenza Type A Antigen Screen - Final 08/03/20 16:25 Nasopharnyx Influenza Type B Antigen Screen - Final <Joaquin Kuo - Last Filed: 08/04/20 12:32> Assessment and Plan - Plan Assessment Acute kidney injury on chronic kidney disease Right lower lobe pneumonia-healthcare acquired complicated by COPD Chronic systolic congestive heart failure Atrial fibrillation on chronic anticoagulation therapy Microcytic anemia Hypertension Hyperlipidemia GERD Gout History of lung cancer status post left upper lobe lobectomy Plan Acute kidney injury on chronic kidney disease: Nephrology consult in place, currently recommendations include NS at 50 cc/hour for total of 1.5 L. renal ultrasound obtained, uric acid obtained. Appreciate further input from nephrology. Right lower lobe pneumonia-healthcare acquired complicated by COPD: Continue with vancomycin, Levaquin, cefepime at this time, blood and sputum cultures obtained. Pulmonology consult in place. Continue oxygen per nasal cannula at this time. Continue with prednisone, nebulizer treatments, Dulera. Chronic systolic congestive heart failure: Appears stable at this time, will hold off on Lasix at this time as patient is receiving IV fluids for acute renal failure. Patient had a recent echocardiogram showing ejection fraction 38%. Atrial fibrillation on chronic anticoagulation therapy: Continue home medications including aspirin, Plavix, Xarelto. May need to adjust Xarelto dose. Microcytic anemia: Hemoglobin 8.6, appears close to baseline for patient. Will obtain iron studies. No reported melena or bright-red blood per stool. Hypertension: Continue metoprolol. Hyperlipidemia: Continue simvastatin GERD: Continue metoprolol Gout: Continue allopurinol History of lung cancer status post left upper lobe lobectomy: Stable this time. Discharge Plan: Home Plan to discharge in: Greater than 2 days - Advance Directives Does patient have a Living Will: No Does patient have a Durable POA for Healthcare: No - Code Status/Comfort Care Code Status Assessed: Yes (Patient is full code) Critical Care: No Time Spent Managing Pts Care (In Minutes): 55 <Dudley Morgan - Last Filed: 08/03/20 20:13> - Plan Case reviewed in detail with nurse practitioner. Agree with plan of care. Medications adjusted. Additional medication added. Please see progress note for details. <Joaquin Kuo - Last Filed: 08/04/20 12:32>
[2020-08-03] MEDS ORDERED: ONDANSETRON 4 MG/2 ML VIAL IV PRN (20:45)
[2020-08-03] MEDS ORDERED: VANCOMYCIN/NS 1 gm 1 GM/250 ML BAG IVPB SCH (20:45)
[2020-08-03] MEDS ORDERED: NA CHLORIDE 0.9% 1,000 ML IV SCH (20:45)
[2020-08-03] MEDS ORDERED: GABAPENTIN 300 MG CAP PO PRN (20:45)
[2020-08-03] MEDS ORDERED: Levofloxacin500mg IV 500 MG/100 ML BAG IV SCH (20:45)
[2020-08-03] MEDS ORDERED: CYCLOBENZAPRINE 10 MG TAB PO PRN (20:45)
[2020-08-03] MEDS ORDERED: LORAZEPAM 0.5 MG TABLET PO PRN (20:45)
[2020-08-03] MEDS ORDERED: ACETAMINOPHEN 500 MG TAB PO PRN (20:45)
[2020-08-03] MEDS ORDERED: predniSONE 20 MG TAB PO SCH (21:00)
[2020-08-03] MEDS ORDERED: CEFEPIME 1 GM/VIAL IV SCH (21:00)
[2020-08-03] MEDS ORDERED: DULERA 100/5 (MOMETASONE/FORMOTEROL) INHALER IH SCH (21:00)
[2020-08-03] MEDS ORDERED: METOPROLOL XL 50 MG TAB PO SCH (23:00)
[2020-08-03] MEDS: ALBUTEROL 2.5 MG/3 ML NEB SOL NEB SCH (23:00)
[2020-08-03] MEDS: IPRATROPIUM BROM 0.5MG/2.5ML NEB SCH (23:00)
[2020-08-03] MEDS ORDERED: IPRATROPIUM BROM 0.5MG/2.5ML ONE (23:04)
[2020-08-03] MEDS: ATORVASTATIN 20 MG TAB PO SCH (23:36)
[2020-08-03] MEDS ORDERED: RIVAROXABAN 15 MG TABLET PO SCH (23:45)
--- NOTE | 2020-08-04 00:14 | RAD REPORT ---
EXAM DESCRIPTION: US - Renal Ultrasound-Complete - 08/03/2020 10:23 pm CLINICAL HISTORY: acute kidney failure Flank pain COMPARISON: Renal Ultrasound-Complete dated 12/29/2018; Abdomen Pelvis Wo Contrast dated 07/06/2020 FINDINGS: Mildly echogenic kidneys are present bilaterally. The right kidney measures 9.7 x 4.1 x 4.0 cm.. No hydronephrosis, focal mass or perinephric fluid. The left kidney measures 11.2 x 4.5 x 4.1 cm.. No hydronephrosis seen. Several left renal cysts are n oted the largest measuring 4 cm without significant interval change since comparative study. The urinary bladder is incompletely distended without gross abnormality seen. IMPRESSION: Mildly echogenic kidneys are seen bilaterally compatible with medical renal disease. Stable appearance of left renal cysts.
[2020-08-04] MEDS ORDERED: NA CHLORIDE 0.9% 500 ML IV ONE (00:22)
--- NOTE | 2020-08-04 00:27 | RAD REPORT ---
EXAM DESCRIPTION: RAD - Chest Single View - 08/03/2020 10:55 pm CLINICAL HISTORY: CHEST PAIN Chest pain. COMPARISON: Chest Single View dated 07/27/2020; Chest Single View dated 07/25/2020; Chest Single View dated 11/12/2019; Chest Single View dated 01/10/2019 FINDINGS: Portable technique limits examination quality. Hyperexpansion of the right lung is seen with patchy opacity in the medial right lung base suspicious for developing pneumonia. Mild volume loss of the left lung is seen. The heart is normal in size. No displaced fractures. IMPRESSION: Patchy opacity in the medial right lung base is seen suspicious for developing pneumonia .
[2020-08-04 01:30] VITALS: BMI 19.1
[2020-08-04] MEDS: IPRATROPIUM BROM 0.5MG/2.5ML NEB SCH ×2 (01:54→08:47)
[2020-08-04] MEDS: ALBUTEROL 2.5 MG/3 ML NEB SOL NEB SCH ×2 (01:54→08:47)
[2020-08-04] MEDS: METHYLPREDNISOLONE 40 MG INJ IV SCH ×2 (02:04→09:03)
[2020-08-04] MEDS ORDERED: METHYLPREDNISOLONE 40 MG INJ ONE (02:12)
[2020-08-04] MEDS ORDERED: VANCOMYCIN 1 GM in NA CHLORIDE 0.9% 500 ML IVPB SCH (04:00)
[2020-08-04 05:41] LABS: Absolute Lymphocytes (CBC) 0.2 K/uL (0.7-4.9); Basophils % 0.4 % (0-1.3); Hematocrit 25.3 % (39.6-49.0); Lymphocytes % 2.2 % (15.3-44.8); MPV 8.8 fL (7.6-11.3); RBC Red Blood Cell Count 3.12 M/uL (4.33-5.43)
[2020-08-04] MEDS: LEVOTHYROXINE SOD 0.1 MG TAB PO SCH (05:53)
[2020-08-04 05:59] LABS: Magnesium 2.8 mg/dL (1.8-2.4); Potassium 4.6 mmol/L (3.5-5.1)
[2020-08-04] MEDS: PANTOPRAZOLE 40MG TABLET PO SCH (06:31)
[2020-08-04] MEDS ORDERED: INFLUENZA VACCINE (for 3y+) 0.5 ML DOSE IMVAC ONE (08:00)
--- NOTE | 2020-08-04 08:23 | RAD REPORT ---
EXAM DESCRIPTION: RAD - Chest Pa And Lat (2 Views) - 08/04/2020 8:04 am CLINICAL HISTORY: follow up RLL pneumonia COMPARISON: Portable August 03 TECHNIQUE: Frontal and lateral views of the chest were obtained. FINDINGS: The lungs are extensively fibrotic with flattened diaphragm and increased retrosternal spa ce. Patient has exaggerated kyphosis in the thoracic spine. Small bullous changes are seen in the ri ght apex. Right apical pleural thickening, scarring and elevation of the left hemidiaphragm noted. The focal infiltrate seen in the medial right base has substantially cleared. Heart size is normal an d central vasculature is within normal limits. No pleural effusion or pneumothorax seen. No acute b yfn finding noted. No aortic abnormality. IMPRESSION: Near complete resolution of the focal infiltrative changes in the right lower lobe. Stents of fibro emphysematous lung changes are present.
[2020-08-04] MEDS ORDERED: METOPROLOL XL 50 MG TAB PO SCH (09:00)
[2020-08-04] MEDS ORDERED: dexAMETHasone 4 MG TAB PO SCH (09:00)
[2020-08-04] MEDS: CALCIUM CARBONATE 500 MG TAB PO SCH (09:01)
[2020-08-04] MEDS: allopurinoL 100 MG TAB PO SCH (09:01)
[2020-08-04] MEDS: CLOPIDOGREL 75 MG TABLET PO SCH (09:02)
[2020-08-04] MEDS: ASPIRIN EC 81 MG TAB PO SCH (09:03)
--- NOTE | 2020-08-04 11:01 | P.PN ---
Subjective Date of Service: 08/04/20 Primary Care Provider: Dr. Wilkins Chief Complaint: Shortness of breath fever Subjective: Improving (Patient is stay 64 years of age well known to me with a history of COPD CHF history of lung cancer was is recently discharged admitted again he has been complaining of low blood pressure and some fever) Review of Systems General: Weakness Respiratory: Shortness of Breath Physical Examination - Vital Signs Temperature: 97 F Blood Pressure: 157/72 Pulse: 86 Respirations: 20 Pulse Ox (%): 98 - Physical Exam General: Alert, Oriented x3 Respiratory: Clear to auscultation bilaterally, Diminished Cardiovascular: No edema, Normal S1 S2 - Studies Laboratory Data (last 24 hrs) 08/03/20 16:16: Uric Acid 7.4 H D 08/03/20 16:16: PT 15.6 H, INR 1.33 08/03/20 16:16: WBC 13.4 H D, Hgb 8.6 L, Hct 26.5 L, Plt Count 355 D 08/03/20 16:16: Sodium 133 L, Potassium 4.2, BUN 43 H, Creatinine 3.65 H, Glucose 163 H, Magnesium 2.7 H, Total Bilirubin 0.4, AST 13 L, ALT 14, Alkaline Phosphatase 77 Microbiology Data (last 24 hrs): 08/03/20 16:25 Nasopharnyx Influenza Type A Antigen Screen - Final 08/03/20 16:25 Nasopharnyx Influenza Type B Antigen Screen - Final Assessment & Plan - Problems (Diagnosis) (1) Congestive heart failure Current Visit: No Status: Acute Plan: Patient is 64 years of age with a history of congestive heart failure recent discharged admitted again spironolactone is helping as blood pressure is low poly due to Lasix which has been reduced no evidence of sepsis is chest x-rays clear shows COPD changes patient has CHF no evidence of sepsis continue to monitor possible discharge tomorrow on low-dose levofloxacin 250 mg daily renal function is better patient's saturation is satisfactory on 2 L I am not sure patient had a reaction to steroids before that he is has some doses of steroids while in the hospital and he has not seemed to problem I suggest is a changing over to p.o. Decadron he also has fairly severe COPD continue with bronchodilator treatment possible discharge tomorrow I have resumed is spiron olactone at low doses
--- NOTE | 2020-08-04 11:27 | P.CNS ---
Date of Consult: 08/04/20 Reason for Consult: SHARITA Primary Care Provider: Dr. Wilkins Chief Complaint: Shortness of breath fever History of Present Illness: A 64 Y/o man with PMHx of CKD IIIb/IV baseline Cr 2.2-2.4 , COPD, CHF on lasix and aldacotne , HTN , Afib and HX of remote Lunf Ca Pt presented with the complaints of high temperature and pt was recently discharged , he was discharged on lasix 40mg bid and aldactone was sopped in ER Cr 3.5 pt started on IVF with improvement in CR no chest pain, palpitation, fever, chills or sick contact Physical exam general: AAOX3, NAD , Neck; Supple, No elevated JVD hear: RRR, normal S1,2 no murmur or rub Chest: decreased air entry B/l m no rales or wheezes Abdomen: Soft , Nt Extremities trace edema A/P SHARITA oc CKD IIIb/IV due to overdiuresis Cr baseline 2.2-2.4 , US: no hydro will stop IVF tonight will hold lasix COPD cont inhalers pulmonary on baord HX of CHF will hold lasix Cont aldactone complex renal cysts W/U as an OP Allergies prednisone Adverse Reaction (Verified 08/03/20 22:01) Shortness of breath Home Medications: Acetaminophen/Diphenhydramine [Tylenol Pm Ex-Strength Caplet] 2 tab PO BEDTIME PRN 07/07/20 Albuterol Sulfate [Proair Hfa] 1 puff IH PRN PRN 07/07/20 Aspirin Chewable [Aspirin Chewable*] 81 mg PO DAILY 07/07/20 Cholecalciferol (Vitamin D3) [Vitamin D3] 2,000 unit PO DAILY 07/07/20 Cyclobenzaprine [Flexeril*] 5 mg PO BEDTIME PRN 07/07/20 Ferrous Sulfate [Ferrous Sulfate*] 325 mg PO DAILY 07/07/20 Fluticasone/Umeclidin/Vilanter [Trelegy Ellipta 100-62.5-25] 1 puff IH DAILY 07/07/20 Folic Acid 3 mg PO DAILY 07/07/20 Gabapentin [Neurontin*] 300 mg PO BID PRN 07/07/20 Ipratropium/Albuterol Sulfate [Iprat-Albut 0.5-3(2.5) mg/3 ml] 1 inh IH BIDP PRN 07/07/20 LORazepam [Ativan*] 0.5 mg PO BEDTIME PRN 07/07/20 Levothyroxine [Synthroid*] 0.1 mg PO [id number] 07/07/20 Magnesium Oxide [Magnesium] 400 mg PO DAILY 07/07/20 Metoprolol Succinate [Toprol Xl*] 50 mg PO BID 07/07/20 Multivitamin with Minerals [One Daily Plus Minerals] 1 tab PO DAILY 07/07/20 Omeprazole [Prilosec] 40 mg PO [id number] 07/07/20 Rivaroxaban [Xarelto*] 15 mg PO BEDTIME 07/07/20 allopurinoL [Zyloprim*] 100 mg PO BEDTIME 07/07/20 Simvastatin 20 mg PO BEDTIME 07/25/20 Calcium Carbonate [Tums Regular*] 1,000 mg PO DAILY #30 tab 07/28/20 Clopidogrel Bisulfate [Plavix*] 75 mg PO DAILY #30 tablet 07/28/20 Furosemide [Lasix] 40 mg PO BID #60 07/28/20 Spironolactone [Aldactone*] 25 mg PO DAILY #30 tab 07/28/20 Acetaminophen 500 mg PO DAILY PRN 08/03/20 L.acidoph,Paracasei, B.lactis [Probiotic] 1 each PO DAILY 08/03/20 Leflunomide 20 mg PO BEDTIME 08/03/20 dexAMETHasone [Dexamethasone] 2 mg PO DAILYPRN PRN 08/03/20 - Past Medical/Surgical History Diabetic: No -: Hypertension -: COPD -: Atrial fibrillation on chronic anticoagulation therapy -: Lung cancer(does not know which type) -: Gout -: Chronic diastolic congestive heart failure -: Chronic kidney disease stage 4 -: left upper lung lobectomy with lymph node resection -: appendectomy -: tonsillectomy Psychosocial/ Personal History: . Currently lives at home with his - Family History Father Medical History: Heart disease, Hypertension Notes: at 75 yo Mother Medical History: Cancer Notes: no medical history, still living Brother Medical History: Hypertension, Cancer Notes: melanoma Sister Medical History: Other (see notes) Notes: fibromyalgia - Social History Alcohol use: Yes CD- Drugs: Yes Caffeine use: Yes Place of Residence: Home Physical Examination Temp Pulse Resp BP Pulse Ox 97 F 86 20 157/72 H 98 08/04/20 11:01 08/04/20 11:01 08/04/20 11:01 08/04/20 11:01 08/04/20 11:01 Laboratory Data (last 24 hrs) 08/03/20 16:16: Uric Acid 7.4 H D 08/03/20 16:16: PT 15.6 H, INR 1.33 08/03/20 16:16: WBC 13.4 H D, Hgb 8.6 L, Hct 26.5 L, Plt Count 355 D 08/03/20 16:16: Sodium 133 L, Potassium 4.2, BUN 43 H, Creatinine 3.65 H, Glucose 163 H, Magnesium 2.7 H, Total Bilirubin 0.4, AST 13 L, ALT 14, Alkaline Phosphatase 77
--- NOTE | 2020-08-04 11:40 | EKG ---
Test Date: 2020-08-03 Test Time: 16:47:29 Linux Architect: FREDERICK MEASUREMENT RESULTS: Intervals: Rate: 79 NJ: 150 QRSD: 124 QT: 428 QTc: 490 Kirk: P: 88 NJ: 150 QRS: 17 T: 54 INTERPRETIVE STATEMENTS: Normal sinus rhythm Right bundle branch block Septal infarct, age undetermined Abnormal ECG Compared to ECG 07/25/2020 12:09:46 Sinus tachycardia no longer present Myocardial infarct finding still present Electronically Signed On 08-04-20 11:37:31 CDT by Nasir Bailey
--- NOTE | 2020-08-04 12:24 | P.PN ---
Subjective Date of Service: 08/04/20 Primary Care Provider: Dr. Wilkins Chief Complaint: Shortness of breath fever Subjective: Improving, Doing well Physical Examination - Vital Signs Temperature: 97 F Blood Pressure: 157/72 Pulse: 86 Respirations: 20 Pulse Ox (%): 98 - Physical Exam General: Alert, In no apparent distress, Oriented x3, Cooperative HEENT: Atraumatic Neck: Supple Respiratory: Clear to auscultation bilaterally, Normal air movement, Other (Currently on 2 L per nasal canula) Cardiovascular: Normal pulses, Regular rate/rhythm Gastrointestinal: Normal bowel sounds, No tenderness, No masses, No rebound, No guarding Integumentary: No tenderness/swelling Neurological: Normal speech, Normal strength at 5/5 x4 extr, Normal tone, Normal affect - Studies Laboratory Data (last 24 hrs) 08/03/20 16:16: Uric Acid 7.4 H D 08/03/20 16:16: PT 15.6 H, INR 1.33 08/03/20 16:16: WBC 13.4 H D, Hgb 8.6 L, Hct 26.5 L, Plt Count 355 D 08/03/20 16:16: Sodium 133 L, Potassium 4.2, BUN 43 H, Creatinine 3.65 H, Glucose 163 H, Magnesium 2.7 H, Total Bilirubin 0.4, AST 13 L, ALT 14, Alkaline Phosphatase 77 Microbiology Data (last 24 hrs): 08/03/20 16:25 Nasopharnyx Influenza Type A Antigen Screen - Final 08/03/20 16:25 Nasopharnyx Influenza Type B Antigen Screen - Final Medications List Reviewed: Yes Assessment & Plan Discharge Plan: Home Plan to discharge in: 24 Hours Physician Review Additional Text: Assessment Acute on chronic renal disease stage IV likely from over diuresis Dyspnea secondary to possible right lower lobe pneumonia complicated with COPD Chronic systolic congestive heart failure Atrial fibrillation on chronic anticoagulation therapy Microcytic anemia Hypertension Hyperlipidemia GERD Gout Hypothyroidism History of lung cancer status post left upper lobe lobectomy Plan Acute on chronic renal disease stage IV likely from over diuresis: Case discussed with nephrology. Nephrology will continue with IV fluids and discontinue later today. Lasix has been discontinued. Aldactone to be continued. Patient has improved. Pulmonology adjusting antibiotic therapy. Will adjust Xarelto to Eliquis due to renal disease. Renal ultrasound shows renal disease. Will continue to monitor closely. I will turn the service over to the hospitalist team tomorrow. Anticipate likely discharge tomorrow. Will discuss with him further. Dyspnea secondary to possible right lower lobe pneumonia complicated with COPD: X-ray shows improvement. Case discussed with pulmonology. Pulmonology feels patient likely not with hospital-acquired pneumonia. Antibiotics changed to oral Levaquin only. Low-dose Levaquin will be utilized due to history of AFib. Continue COPD medication. Continue with steroid medication. Maintain sats above 93%. Patient will continue with home oxygen at discharge. Chronic systolic congestive heart failure: Patient with recent hospitalization. Patient likely with over-diuresis. Diuretics have been adjusted. Lasix discontinued. Patient will continue with Aldactone only. Patient will receive some IV fluids but discontinued later today as recommended by nephrology. Continue 1500 cc per day fluid restriction. Atrial fibrillation on chronic anticoagulation therapy: Will continue with aspirin, Plavix. Will discontinue Xarelto and change to Eliquis due to chronic renal disease. This will need to be addressed at discharge if GFR less than 30. Microcytic anemia: Continue with iron and vitamin supplementation. Hypertension: Continue metoprolol. Hyperlipidemia: Will continue with medication GERD: Continue Protonix Gout: Continue allopurinol Hypothyroidism: Continue with medication History of lung cancer status post left upper lobe lobectomy: Stable this time. Patient on home oxygen. Patient follows up with pulmonology. Time Spent Managing Pts Care (In Minutes): 55
[2020-08-04] MEDS ORDERED: GABAPENTIN 300 MG CAP PO PRN (12:25)
[2020-08-04] MEDS ORDERED: CYCLOBENZAPRINE 10 MG TAB PO PRN (12:29)
[2020-08-04] MEDS ORDERED: ALBUTEROL 2.5 MG/3 ML NEB SOL NEB PRN (12:29)
[2020-08-04] MEDS ORDERED: IPRATROPIUM BROM 0.5MG/2.5ML NEB PRN (12:29)
[2020-08-04 16:39] VITALS: O2SAT 95
[2020-08-04] MEDS: METOPROLOL XL 50 MG TAB PO SCH (17:54)
[2020-08-04] MEDS ORDERED: CEFEPIME/SWI 1gm 10 ML IV SCH (20:00)
[2020-08-04] MEDS ORDERED: HOME MED 1 EA UNK (Simvastatin [Simvastatin] 20 MG) PO SCH (21:00)
[2020-08-04] MEDS ORDERED: HOME MED 1 EA UNK (Leflunomide [Leflunomide] 20 MG) PO SCH (21:00)
[2020-08-04] MEDS: APIXABAN 5 MG TABLET PO SCH (21:36)
[2020-08-04] MEDS: ATORVASTATIN 20 MG TAB PO SCH (21:36)
[2020-08-04] MEDS: SPIRONOLACTONE 25 MG TABLET PO SCH (21:36)
[2020-08-04] MEDS: dexAMETHasone 4 MG TAB PO SCH (21:36)
[2020-08-04] MEDS: ENSURE ENLIVE 237 ML CAN PO SCH (21:37)
[2020-08-05] MEDS: LEVOTHYROXINE SOD 0.1 MG TAB PO SCH (05:31)
[2020-08-05] MEDS ORDERED: VANCOMYCIN/NS 1 gm 1 GM/250 ML BAG IV SCH (06:00)
[2020-08-05] MEDS ORDERED: HOME MED 1 EA UNK (Omeprazole [Prilosec] 40 MG) PO SCH (06:00)
[2020-08-05] MEDS: PANTOPRAZOLE 40MG TABLET PO SCH (06:05)
[2020-08-05] MEDS: METOPROLOL XL 50 MG TAB PO SCH (06:05)
[2020-08-05 06:15] LABS: Absolute Lymphocytes (CBC) 0.2 K/uL (0.7-4.9); Basophils % 0.1 % (0-1.3); Hematocrit 25.4 % (39.6-49.0); Lymphocytes % 2.8 % (15.3-44.8); MPV 8.6 fL (7.6-11.3); RBC Red Blood Cell Count 3.14 M/uL (4.33-5.43)
[2020-08-05 06:34] LABS: Magnesium 2.7 mg/dL (1.8-2.4); Potassium 4.5 mmol/L (3.5-5.1)
[2020-08-05] MEDS: CALCIUM CARBONATE 500 MG TAB PO SCH (08:45)
[2020-08-05] MEDS: APIXABAN 5 MG TABLET PO SCH (08:45)
[2020-08-05] MEDS: CLOPIDOGREL 75 MG TABLET PO SCH (08:45)
[2020-08-05] MEDS: allopurinoL 100 MG TAB PO SCH (08:46)
[2020-08-05] MEDS: dexAMETHasone 4 MG TAB PO SCH (08:46)
[2020-08-05] MEDS: SPIRONOLACTONE 25 MG TABLET PO SCH (08:46)
[2020-08-05] MEDS: ASPIRIN EC 81 MG TAB PO SCH (08:46)
[2020-08-05] MEDS: ENSURE ENLIVE 237 ML CAN PO SCH (08:49)
[2020-08-05] MEDS ORDERED: FOLIC ACID 1 MG TABLET PO SCH (09:00)
[2020-08-05] MEDS ORDERED: LACTOBACILLUS/ACIDOPHILUS TAB PO SCH (09:00)
[2020-08-05] MEDS ORDERED: MAGNESIUM OXIDE 400 MG TAB PO SCH (09:00)
[2020-08-05] MEDS ORDERED: levoFLOXacin 250 MG TAB PO SCH (09:00)
[2020-08-05] MEDS ORDERED: VITAMIN D 1000 UNIT TAB PO SCH (09:00)
[2020-08-05] MEDS ORDERED: INFLUENZA VACCINE (for 3y+) 0.5 ML DOSE IMVAC ONE (09:00)
[2020-08-05] MEDS ORDERED: FERROUS SULFATE 325 MG TAB PO SCH (09:00)
[2020-08-05] MEDS ORDERED: PNEUMOCOCCAL VACCINE 0.5 ML IMVAC ONE (09:00)
[2020-08-05] MEDS ORDERED: MULTIVIT W/ MINERAL TAB PO SCH (09:00)
--- NOTE | 2020-08-05 11:01 | P.DS ---
Admission Date: 08/03/20 Discharge Date: 08/05/20 Primary Care Provider: Dr. Wilkins Disposition: ROUTINE DISCHARGE Discharge Condition: FAIR Reason for Admission: Shortness of breath fever - Problems (1) Congestive heart failure Current Visit: No Status: Acute Qualifiers: Heart failure type: systolic Brief History of Present Illness: Patient is 64 years of age admitted with worsening shortness of breath Hospital Course: He was admitted did well is renal function had worsened is probably side effect of Lasix he responded well to the Decadron the time of discharge he was alert oriented responsive cooperative a little anxious blood pressure was mildly elevated continue with spironolactone kidney function is improving continue with Decadron breathing was better vital signs stable otherwise labs reviewed discharge Vital Signs/Physical Exam: Temp Pulse Resp BP Pulse Ox 97 F 83 20 171/81 H 99 08/05/20 08:00 08/05/20 08:46 08/05/20 08:00 08/05/20 08:46 08/05/20 08:00 Laboratory Data at Discharge: WBC 6.7 K/uL (4.3-10.9) D 08/05/20 05:25 Hgb 8.2 g/dL (13.6-17.9) L 08/05/20 05:25 Hct 25.4 % (39.6-49.0) L 08/05/20 05:25 Plt Count 335 K/uL (152-406) 08/05/20 05:25 PT 15.6 SECONDS (9.5-12.5) H 08/03/20 16:16 INR 1.33 08/03/20 16:16 Sodium 139 mmol/L (136-145) 08/05/20 05:25 Potassium 4.5 mmol/L (3.5-5.1) 08/05/20 05:25 BUN 44 mg/dL (7-18) H 08/05/20 05:25 Creatinine 2.47 mg/dL (0.55-1.3) H 08/05/20 05:25 Glucose 121 mg/dL (74-106) H 08/05/20 05:25 Uric Acid 7.4 mg/dL (3.5-7.2) H D 08/03/20 16:16 Magnesium 2.7 mg/dL (1.8-2.4) H 08/05/20 05:25 Total Bilirubin 0.4 mg/dL (0.2-1.0) 08/03/20 16:16 AST 13 U/L (15-37) L 08/03/20 16:16 ALT 14 U/L (12-78) 08/03/20 16:16 Alkaline Phosphatase 77 U/L (45-117) 08/03/20 16:16 Home Medications: Acetaminophen/Diphenhydramine [Tylenol Pm Ex-Strength Caplet] 2 tab PO BEDTIME PRN 07/07/20 Albuterol Sulfate [Proair Hfa] 1 puff IH PRN PRN 07/07/20 Aspirin Chewable [Aspirin Chewable*] 81 mg PO DAILY 07/07/20 Cholecalciferol (Vitamin D3) [Vitamin D3] 2,000 unit PO DAILY 07/07/20 Cyclobenzaprine [Flexeril*] 5 mg PO BEDTIME PRN 07/07/20 Ferrous Sulfate [Ferrous Sulfate*] 325 mg PO DAILY 07/07/20 Fluticasone/Umeclidin/Vilanter [Trelegy Ellipta 100-62.5-25] 1 puff IH DAILY 07/07/20 Folic Acid 3 mg PO DAILY 07/07/20 Gabapentin [Neurontin*] 300 mg PO BID PRN 07/07/20 Ipratropium/Albuterol Sulfate [Iprat-Albut 0.5-3(2.5) mg/3 ml] 1 inh IH BIDP PRN 07/07/20 LORazepam [Ativan*] 0.5 mg PO BEDTIME PRN 07/07/20 Levothyroxine [Synthroid*] 0.1 mg PO [id number] 07/07/20 Magnesium Oxide [Magnesium] 400 mg PO DAILY 07/07/20 Metoprolol Succinate [Toprol Xl*] 50 mg PO BID 07/07/20 Multivitamin with Minerals [One Daily Plus Minerals] 1 tab PO DAILY 07/07/20 Omeprazole [Prilosec] 40 mg PO [id number] 07/07/20 Rivaroxaban [Xarelto*] 15 mg PO BEDTIME 07/07/20 allopurinoL [Zyloprim*] 100 mg PO BEDTIME 07/07/20 Simvastatin 20 mg PO BEDTIME 07/25/20 Calcium Carbonate [Tums Regular*] 1,000 mg PO DAILY #30 tab 07/28/20 Clopidogrel Bisulfate [Plavix*] 75 mg PO DAILY #30 tablet 07/28/20 Acetaminophen 500 mg PO DAILY PRN 08/03/20 L.acidoph,Paracasei, B.lactis [Probiotic] 1 each PO DAILY 08/03/20 Leflunomide 20 mg PO BEDTIME 08/03/20 Albuterol Neb [Proventil 0.083% Neb Soln] 2.5 mg NEB Q6HP PRN amp 08/05/20 Apixaban [Eliquis] 5 mg PO BID tablet 08/05/20 Atorvastatin Calcium [Lipitor*] 20 mg PO BEDTIME tab 08/05/20 Calcium Carbonate [Oscal*] 1,000 mg PO DAILY tab 08/05/20 Furosemide [Lasix] 40 mg PO DAILY PRN #30 08/05/20 Spironolactone [Aldactone*] 25 mg PO DAILY #30 tab 08/05/20 dexAMETHasone [Dexamethasone] 2 mg PO BID #60 08/05/20 New Medications: Spironolactone [Aldactone*] 25 mg PO DAILY #30 tab dexAMETHasone [Dexamethasone] 2 mg PO BID #60 Furosemide [Lasix] 40 mg PO DAILY PRN #30 PRN Reason: lower extremity edema
[2020-08-05 13:27] VITALS: BP 131/68; TEMP 97.6
--- NOTE | 2020-08-05 15:30 | P.PN ---
Subjective Date of Service: 08/05/20 Primary Care Provider: Dr. Wilkins Chief Complaint: Shortness of breath fever Subjective A 64 Y/o man with PMHx of CKD IIIb/IV baseline Cr 2.2-2.4 , COPD, CHF on lasix and aldacotne , HTN , Afib and HX of remote Lunf Ca Pt presented with the complaints of high temperature and pt was recently discharged , he was discharged on lasix 40mg bid and aldactone was sopped in ER Cr 3.5 , pt started on IVF with improvement in CR today no new complaints cr near baseline can be discharged from nephrology point of view to be discharged on lasix 40mg alternating with 40mg bid qotherday F/U with nephrology clinic in 08/16 Physical exam general: AAOX3, NAD , Neck; Supple, No elevated JVD hear: RRR, normal S1,2 no murmur or rub Chest: decreased air entry B/l m no rales or wheezes Abdomen: Soft , Nt Extremities noedema A/P SHARITA oc CKD IIIb/IV due to overdiuresis Cr baseline 2.2-2.4 , US: no hydro to be discharged on lasix as above COPD cont inhalers pulmonary on baord HX of CHF lasix as above Cont aldactone complex renal cysts W/U as an OP Physical Examination - Vital Signs Temperature: 97.6 F Blood Pressure: 131/68 Pulse: 85 Respirations: 20 Pulse Ox (%): 99 - Studies Microbiology Data (last 24 hrs): 08/03/20 08:00 Sputum Sputum Gram Stain - Final Medications List Reviewed: Yes
[2020-08-05] MEDS ORDERED: Levofloxacin500mg IV 500 MG/100 ML BAG IV SCH (18:00)
== END 2020-08-05 16:11 | disposition home or self-care (01) | DRG 682 ==
LOC: ER 15:09 → 2ND 19:52
PROVIDERS: ADMIT Family Medicine; ATTEND Internal Medicine Sleep Medicine
DX: N17.9 Acute kidney failure, unspecified (principal); J18.9 Pneumonia, unspecified organism; I50.21 Acute systolic (congestive) heart failure; I13.0 Hypertensive heart and chronic kidney disease with heart failure and stage 1 through stage 4 chronic kidney disease, or unspecified chronic kidney disease; J44.0 Chronic obstructive pulmonary disease with (acute) lower respiratory infection; N18.4 Chronic kidney disease, stage 4 (severe); E78.5 Hyperlipidemia, unspecified; Y95 Nosocomial condition; I48.91 Unspecified atrial fibrillation; D50.9 Iron deficiency anemia, unspecified; K21.9 Gastro-esophageal reflux disease without esophagitis; M10.9 Gout, unspecified; E03.9 Hypothyroidism, unspecified; N28.1 Cyst of kidney, acquired; Z85.118 Personal history of other malignant neoplasm of bronchus and lung; Z79.82 Long term (current) use of aspirin; Z90.49 Acquired absence of other specified parts of digestive tract; Z79.52 Long term (current) use of systemic steroids; Z79.02 Long term (current) use of antithrombotics/antiplatelets; Z79.899 Other long term (current) drug therapy; Z99.81 Dependence on supplemental oxygen; Z87.891 Personal history of nicotine dependence; Z79.01 Long term (current) use of anticoagulants; Z20.828 Contact with and (suspected) exposure to other viral communicable diseases
CPT/HCPCS: 36415; 71045; 71046; 76770; 80048; 80076; 80202; 82550; 82728; 83540; 83735; 83880; 84145; 84466; 84484; 84550; 85025; 85610; 86140; 87040; 87070; 87205; 87804; 90471; 90732; 93005; 94010; 94640; 96361; 96365; 96375; 99285; J0456; J0692; J2920; J3370; J7040; J7050; J7606; J8540; Q2035; U0003

== ENCOUNTER 2020-10-21 20:00 | Inpatient (IN) | payer BC, OTHER ==
--- OUTSIDE RECORDS SUMMARY | 2020-10-21 20:02 | XMS REPORT | Clinical Summary ---
:1955 Author Organization [facility] Address [address] [place] [address] Care Team Providers Name Role Phone MD [...] Coordination Note Referring physician is Valery Bucio [address] [place] [id number] P: [phone] F: [phone] Problem Noted Date Pneumothorax 10/27/2018 Malignant neoplasm of upper lobe bronchus 07/15/2017 Cancer Staging: Pathologic stage from 10/2017: Stage IA (yT1a, N0, cM0) - Signed by Blu Lay MD on 07/29/2017 Hypertension 02/03/2017 COPD (chronic obstructive pulmonary disease) 7 Rheumatoid arthritis 02/03/2017 Smoking 02/03/2017 Surgical History Surgery Date Site/Laterality Comments APPENDECTOMY 11/03/2001 - 11/02/2002 VASECTOMY 11/03/2014 - 11/02/2015 TONSILLECTOMY AGE 10 CIRCUMCISION AGE 10 BRONCHOSCOPY, USING 01/10/2017 Bilateral Procedure: B RONCHOSCOPY, ELECTROMAGNETIC NAVIGATION, USIN G ELECTROMAGNETIC WITH ENDOBRONCHIAL NAVIGATION, W ITH ULTRASOUND ENDOBRONCHIAL UL TRASOUND; Surgeon: Sybil Quach MD; Location: [facility] Bronchoscopy; S ervice: Pulmonary; Late rality: Bilateral; HYDROCELE EXCISION / REPAIR Left LOBECTOMY, LUNG, 07/15/2017 Chest/Bilateral Procedure: ROBO TIC ROBOT-ASSISTED, ASSISTED THORASC OPIC LEFT THORACOSCOPIC UPPER LOBE LOBEC MONICA, THORASCOPIC RIGH T RESECTION MEDIAS TINAL MASS, MEDIASTINA L LYMPH NODE DISECTION; Surgeon: Adria Rey; Location: [facility] OR; Service: Thoraci c; Laterality: Bila teral; Medical devices from this surgery are in t he Implants section . BRONCHOSCOPY 07/15/2017 Bilateral Procedure: FLEXI BLE BRONCHOSCOPY; S urgeon: Adria Rey; Location: [facility]; Service: Thoraci c; Laterality: Bila teral; Medical devices from this surgery are in t he Implants section . 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[employer] Location; Servi ce: Cardiovascular; Laterality: N/A; Medical History Medical History Date Comments COPD (chronic obstructive pulmonary disease) (HCC) Sleep apnea Hypertension Rheumatoid arthritis (HCC) Hyperlipidemia Herniated disc, cervical Kidney cysts Family History Medical History Relation Name Comments [...] Health Maintenance Due Date Last Done Comments COVID-19 VACCINE (#1) 1969 COLONOSCOPY SCREENING 2003 SHINGLES VACCINES (#1) 2003 65+ PNEUMOCOCCAL VACCINE (1 of 1 - PPSV23) 2018 INFLUENZA VACCINE 06/03/2020 Implants Implanted Type Area Diamond Wheel Molder Device Shelf Model / Identifier Expiration Serial / Date Lot Hemostat Absrbl Oxidized Knttd 3x4in Cllos Surgicel Nu -Knit - [id number] Surgical N/A: N/A ETHICON - 03/02/2022 1943 / Implanted: 07/15/2017 at [facility] (Quantity not on file) Implants; / Expanders; [id number] Extenders; Surgical Wires Hemostat Absrbl Oxidized Knttd 3x4in Cllos Surgicel Nu -Knit - [id number] Surgical N/A: N/A ETHICON US- 03/02/2022 1943 / Implanted: 07/15/2017 at [facility] (Quantity not on file) Implants; / Expanders; [id number] Extenders; Surgical Wires Hemostat Absrbl Oxidized Knttd 3x4in Cllos Surgicel Nu -Knit - [id number] Surgical N/A: N/A ETHICON US- 03/02/2022 1943 / Implanted: 07/15/2017 at [facility] (Quantity not on file) Implants; / Expanders; [id number] Extenders; Surgical Wires Hemostat Absrbl Oxidized Knttd 3x4in Cllos Surgicel Nu -Knit - [id number] Surgical N/A: N/A ETHICON US- 03/02/2022 1943 / Implanted: 07/15/2017 at [facility] (Quantity not on file) Implants; / Expanders; [id number] Extenders; Surgical Wires Hemostat Absrbl Oxidized Knttd 3x4in Cllos Surgicel Nu -Knit - [id number] Surgical N/A: N/A ETHICON US- 03/02/2022 1943 / Implanted: 07/15/2017 at [facility] (Quantity not on file) Implants; / Expanders; [id number] Extenders; Surgical Wires Kit Selnt Plrl Air Leak 4ml Strl Progel - [id number] Surgical N/A: N/A NEOMEND INC 07/04/2018 [id number] / Implanted: Qty: 1 on 07/15/2017 by Blu Lay MD at [facility] Implants; / Expanders; Extenders; Surgical Wires Matrix Hmstc Floseal 10ml W/ Humn F2 - [id number] Surgical N/A: N/A B AXTER [id number] / Implanted: 07/15/2017 at [facility] (Quantity not on file) Imp lants; BIOSCIENCE / Expanders; Extenders; Surgical Wires Kit Selnt Plrl Air Leak 4ml Strl Progel - [id number] Surgical N/A: N/A [employer]END [employer] [id number] / Implanted: 07/15/2017 at [facility] (Quantity not on file) Implants; / Expanders; Extenders; Surgical Wires Results Not on fileafter 10/21/2019 Insurance Payer Benefit Plan / Subscriber ID Effective Dates Phone Addre ss Type Group BCBS MARÍA BRYANT [id number] 2017-Present PPO MEDICARE MEDICARE PART A [id number] 2018-Present DAVION RENTERIA Medicare AND B (Work) [id number] Advance Directives For more information, please contact: [phone] Type Date Recorded Patient Imaging Manager Explanati on Advance Directives, Living Will and 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
[2020-10-21 21:16] LABS: Absolute Lymphocytes (CBC) 0.4 K/uL (0.7-4.9); Basophils % 0.1 % (0-1.3); Hematocrit 36.7 % (39.6-49.0); Lymphocytes % 1.4 % (15.3-44.8); Protime INR 1.6; RBC Red Blood Cell Count 4.36 M/uL (4.33-5.43)
[2020-10-21] MEDS ORDERED: NA CHLORIDE 0.9% 1,000 ML ONE ×2 (21:21→23:11)
[2020-10-21] MEDS ORDERED: METOPROLOL TARTRATE 5 MG/5 ML INJ IV ONE ×2 (21:21→23:12)
[2020-10-21 21:31] LABS: ALT/SGPT 17 U/L (12-78); AST/SGOT 21 U/L (15-37); Alkaline Phosphatase 74 U/L (45-117); BUN Blood Urea Nitrogen 69 mg/dL (7-18); Bicarbonate 20 mmol/L (21-32); Bilirubin Direct < 0.1 mg/dL (0-0.2); Bilirubin Total 0.3 mg/dL (0.2-1.0); Glucose Level 91 mg/dL (74-106); NT PRO-BNP 3660 pg/mL (<125); Potassium 5.1 mmol/L (3.5-5.1); Protein, Total 6.2 g/dL (6.4-8.2); Sodium Level 130 mmol/L (136-145); Troponin (Emerg Dept Use Only) 0.02 ng/mL (0.0-0.045)
[2020-10-21] MEDS ORDERED: METOPROLOL TAR 25 MG TAB ONE (21:42)
[2020-10-21 21:51] LABS: Blood Morphology Comment NOT SEEN (NOT SEEN); Platelet Estimate ADEQ
--- NOTE | 2020-10-21 23:00 | RAD REPORT ---
EXAM DESCRIPTION: RAD - Chest Single View - 10/21/2020 8:58 pm CLINICAL HISTORY: SOB, cough, left upper lobectomy COMPARISON: Two view chest August 04, CT chest September 06 TECHNIQUE: AP portable chest image was obtained 10/21/2020 8:58 pm . FINDINGS: Left hemithorax volume reduction secondary to the left upper lobectomy. Left hilum is elev ated. There is left apical pleural thickening. Right lung field shows fibrotic lung change matching c omparison. No acute right lung infiltrate. Heart and vasculature are normal. No measurable pleural ef fusion and no pneumothorax. No acute bony abnormality seen. No acute aortic findings suspected. IMPRESSION: Chronic pleural, parenchymal and postsurgical changes to the chest as detailed. No acute finding identifiable.
[2020-10-21] MEDS ORDERED: FAMOTIDINE 20 MG/2 ML VIAL IV ONE (23:11)
[2020-10-21] MEDS ORDERED: METRONIDAZOLE 500mg IVPB 500 MG/100 ML BAG IV ONE (23:11)
--- NOTE | 2020-10-21 23:21 | EDPHYS ---
Physician Documentation [facility] Name: Angelo Narvaez Age: 65 yrs Sex: Male : 1955 Arrival Date: 10/21/2020 Time: 20:02 Bed 19 Private MD: ED Physician Milan Simpson HPI: 10/21 20:50 This 65 yrs old Male presents to ER via Wheelchair with complaints of cp Decreased Appetite, Diarrhea. 20:50 The patient presents to the emergency department with diarrhea, that is continuous. cp 20:50 Onset: The symptoms/episode began/occurred 2 week(s) ago. Possible causes: flare up of cp bowel problem, history of CDiff. Associated signs and symptoms: Pertinent positives: anorexia, general weakness, Pertinent negatives: constipation, fever, vomiting. Severity of symptoms: in the emergency department the symptoms are unchanged despite home interventions. Historical: - Allergies: 20:15 Prednisone; ll1 - PMHx: 20:15 Atrial Fib; Lung Cancer; HTN; Rheumatoid Arthritis; kidney disease; Pneumothorax; COPD; ll1 Gout; C-diff; - PSHx: 20:15 Appendectomy; Lobectomy, Left upper lobe; ll1 - Immunization history:: Flu vaccine is up to date. - Social history:: Smoking status: Patient/guardian denies using tobacco, the patient reports quitting approximately 4.5 years ago. ROS: 21:00 Constitutional: Positive for poor PO intake, Negative for body aches, chills, fever. cp 21:00 Eyes: Negative for injury, pain, redness, and discharge. cp 21:00 ENT: Negative for ear pain, sore throat, difficulty swallowing, difficulty handling secretions. 21:00 Cardiovascular: Negative for chest pain, edema. 21:00 Respiratory: Positive for cough, "sounds productive", Negative for wheezing. 21:00 Abdomen/GI: Positive for diarrhea, black/tarry stool, Negative for abdominal pain, vomiting, constipation. 21:00 : Negative for urinary symptoms. 21:00 Neuro: Positive for weakness, Negative for altered mental status, headache, syncope. 21:00 All other systems are negative. Exam: 21:05 ECG was reviewed by the Attending Physician. cp 21:07 Constitutional: The patient appears in no acute distress, alert, awake, cp non-diaphoretic, non-toxic, well developed, well nourished. 21:07 Head/Face: Normocephalic, atraumatic. cp 21:07 Eyes: Periorbital structures: appear normal, Conjunctiva: normal, no exudate, no injection, Sclera: no appreciated abnormality, Lids and lashes: appear normal, bilaterally. 21:07 ENT: External ear(s): are unremarkable, Nose: is normal, Mouth: Lips: moist, Oral mucosa: moist, Posterior pharynx: Airway: no evidence of obstruction, patent. 21:07 Neck: ROM/movement: is normal, is supple, without pain, no range of motions limitations. 21:07 Chest/axilla: Inspection: normal, Palpation: is normal, no crepitus, no tenderness. 21:07 Cardiovascular: Rate: tachycardic, Rhythm: irregular, Edema: is not appreciated, JVD: is not appreciated. 21:07 Respiratory: the patient does not display signs of respiratory distress, Respirations: normal, no use of accessory muscles, no retractions, labored breathing, is not present, Breath sounds: decreased breath sounds, that are mild, throughout. 21:07 Abdomen/GI: Inspection: abdomen appears normal, Bowel sounds: active, all quadrants, Palpation: soft, in all quadrants, mild abdominal tenderness, in all quadrants, Rectal exam: Stool: guaiac negative, green. 21:07 Back: pain, is absent, ROM is normal. 21:07 Neuro: Orientation: to person, place \\T\\ time. Mentation: is normal, Motor: moves all fours, strength is normal. Vital Signs: 20:12 BP 121 / 60; Pulse 119; Resp 20; Temp 97.0; Pulse Ox 100% on R/A; Weight 58.97 kg; ll1 Height 5 ft. 5 in. (165.10 cm); Pain 4/10; 21:00 BP 145 / 74; Pulse 160; Resp 22; Pulse Ox 100% 2 lpm ; mg2 21:09 BP 136 / 81; Pulse 151; Resp 22; Pulse Ox 100% on 2 lpm NC; mg2 21:15 BP 115 / 75; Pulse 142; Resp 22; Pulse Ox 100% on 2 lpm NC; mg2 22:24 BP 136 / 96; Pulse 131; Resp 22; Pulse Ox 100% on 2 lpm NC; mg2 23:20 BP 122 / 88; Pulse 125; Resp 26; Pulse Ox 100% on 2 lpm NC; mg2 10/22 00:55 BP 105 / 68; Pulse 136; Resp 26; Pulse Ox 100% on 2 lpm NC; mg2 01:23 Pulse 105; Resp 22; Pulse Ox 100% on 2 lpm NC; mg2 10/21 20:12 Body Mass Index 21.63 (58.97 kg, 165.10 cm) ll1 MDM: 10/21 20:28 Patient medically screened. cp 23:14 Physician consultation: Wilmar Vazquez MD was called at 23:16, was contacted at 23:16, cp regarding admission, to the telemetry unit. patient's condition. 23:15 Data reviewed: vital signs, nurses notes, lab test result(s), EKG, radiologic studies, cp plain films, and as a result, I will admit patient. 23:15 Counseling: I had a detailed discussion with the patient and/or guardian regarding: the cp historical points, exam findings, and any diagnostic results supporting the discharge/admit diagnosis, lab results, radiology results, the need for further work-up and treatment in the hospital. Response to treatment: the patient's symptoms have mildly improved after treatment. 10/21 20:43 Order name: COVID-19 10/21 20:43 Order name: Influenza Screen (a \\T\\ B) 10/21 20:43 Order name: Basic Metabolic Panel; Complete Time: 21:42 10/21 21:42 Interpretation: Normal except: NA 130; CO2 20; BUN 69; CRE 3.56; GFR 17. 10/21 20:43 Order name: CBC with Diff; Complete Time: 21:59 10/21 21:24 Interpretation: Normal except: WBC 25.3; HGB 12.0; HCT 36.7; MCV 84.1; RDW 17.1; SHENA% cp 92.0; LYM% 1.4; NEUT A 23.3; LYMA 0.4; MNA 1.5. 10/21 20:43 Order name: LFT's; Complete Time: 21:42 10/21 20:43 Order name: Magnesium; Complete Time: 21:42 10/21 20:43 Order name: NT PRO-BNP; Complete Time: 21:42 10/21 20:43 Order name: PT-INR; Complete Time: 21:20 10/21 21:20 Interpretation: Abnormal: PT 18.7. 10/21 20:43 Order name: Troponin (emerg Dept Use Only); Complete Time: 21:42 10/21 20:43 Order name: Urine Microscopic Only; Complete Time: 00:09 10/21 20:44 Order name: CORONAVIRUS EDOK 10/21 20:44 Order name: Influenza Screen (A ; Complete Time: 23:13 EDMS 10/21 21:18 Order name: Manual Differential; Complete Time: 21:59 EDMS 10/21 21:59 Interpretation: Normal except: BANDS [F] 41; LYM 1; META 4; MYELO 1. 10/21 21:48 Order name: Lactate; Complete Time: 23:13 10/21 21:48 Order name: Procalcitonin; Complete Time: 00:09 10/21 21:48 Order name: Blood Culture Adult (2) 10/21 21:48 Order name: Stool Culture 10/21 21:48 Order name: CDIFF; Complete Time: 00:09 10/22 00:02 Order name: Ferritin; Complete Time: 00:09 EDMS 10/22 00:02 Order name: Thyroid Stimulating Hormone; Complete Time: 00:09 EDMS 10/22 00:02 Order name: Transferrin Sat/Iron Binding; Complete Time: 00:09 EDMS 10/22 00:02 Order name: UR CREAT; Complete Time: 00:09 EDMS 10/22 00:02 Order name: UR SODIUM; Complete Time: 00:09 EDOK 10/22 00:02 Order name: CBC with Automated Diff EDMS 10/22 00:02 Order name: CBC with Automated Diff; Complete Time: 00:09 EDMS 10/22 00:02 Order name: Comprehensive Metabolic Panel EDMS 10/22 00:02 Order name: Comprehensive Metabolic Panel; Complete Time: 00:09 EDMS 10/22 00:02 Order name: Creatine Phosphokinase EDMS 10/22 00:02 Order name: Creatine Phosphokinase; Complete Time: 00:09 EDMS 10/22 00:02 Order name: Creatine Phosphokinase; Complete Time: 00:09 EDOK 10/21 20:43 Order name: XRAY Chest (1 view); Complete Time: 23:13 10/21 20:43 Order name: EKG; Complete Time: 20:45 cp 10/21 20:43 Order name: Cardiac monitoring; Complete Time: 21:22 cp 10/21 20:43 Order name: EKG - Nurse/Tech; Complete Time: 21:22 cp 10/21 20:43 Order name: IV Saline Lock; Complete Time: 21:22 cp 10/21 20:43 Order name: Labs collected and sent; Complete Time: 21: cp 10/21 20:43 Order name: O2 Per Protocol; Complete Time: 21: cp 10/21 20:43 Order name: O2 Sat Monitoring; Complete Time: 21:22 cp 10/21 21:43 Order name: CT Abd/Pelvis - Without Contrast; Complete Time: 00:09 cp 10/22 00:02 Order name: CONS Pharmacy Consult EDMS 10/22 00:02 Order name: CONS Physician Consult EDMS 10/22 00:02 Order name: CONS Physician Consult EDMS 10/22 00:02 Order name: CONS Physician Consult EDMS 10/22 00:02 Order name: Heart Healthy EDMS 10/22 00:02 Order name: Creatine Phosphokinase; Complete Time: 00:09 EDMS 10/22 00:02 Order name: Troponin I EDMS 10/22 00:02 Order name: Troponin I; Complete Time: 00:09 EDMS 10/22 00:02 Order name: Troponin I; Complete Time: 00:09 EDMS 10/22 00:02 Order name: CORONAVIRUS EDMS 10/22 00:02 Order name: Sputum Gram Stain EDMS 10/22 01:35 Order name: SARS-COV-2 RT PCR; Complete Time: 00:09 EDMS EC:05 Rate is 161 beats/min. Rhythm is irregularly irregular. QRS interval is prolonged at cp 102 msec. QT interval is normal. T waves are Inverted in lead aVR. Interpreted by me. Administered Medications: Discontinued: NS 0.9% 1000 ml IV at 1 bolus Per protocol; 1000 mL bolus 21:05 Drug: Lopressor 5 mg Route: IVP; Site: right forearm; mg2 10/22 00:35 Follow up: Response: No adverse reaction mg2 10/21 21:15 Drug: Metoprolol 5 mg Route: IVP; Site: right forearm; mg2 10/22 00:32 Follow up: Response: No adverse reaction mg2 10/21 21:21 Drug: NS 0.9% 1000 ml Route: IV; Rate: 1 bolus; Site: right forearm; mg2 10/22 00:34 Follow up: Response: No adverse reaction; IV Status: Completed infusion; IV Intake: mg2 1000ml 10/21 21:22 Drug: Albuterol HFA Inhaler 2 puffs {Note: patient took his own inhaler.} Route: mg2 Inhalation; 10/22 00:35 Follow up: Response: No adverse reaction mg2 10/21 21:31 Drug: Metoprolol 25 mg Route: PO; mg2 10/22 00:35 Follow up: Response: No adverse reaction mg2 10/21 23:08 Drug: Pepcid 20 mg Route: IVP; Site: right forearm; mg2 10/22 00:33 Follow up: Response: No adverse reaction mg2 10/21 23:18 Drug: metroNIDAZOLE 500 mg Volume: 100 ml; Route: IVPB; Infused Over: 30 mins; Site: [facility] right forearm; 10/22 00:34 Follow up: Response: No adverse reaction; IV Status: Completed infusion; IV Intake: mg2 100ml 10/21 23:18 Drug: NS 0.9% 1000 ml Route: IV; Rate: 1 bolus; Site: right forearm; mg2 23:19 Drug: Metoprolol 5 mg Route: IVP; Site: right forearm; mg2 10/22 00:32 Follow up: Response: No adverse reaction mg2 Disposition: 04:55 Co-signature as Attending Physician, Milan Simpson MD. [email or web address] Disposition: 10/21/20 23:20 Hospitalization ordered by Wilmar Vazquez for Inpatient Admission. Preliminary diagnosis are Chronic atrial fibrillation, Dehydration, Other acute kidney failure, Diarrhea, unspecified, Infectious gastroenteritis and colitis, unspecified. - Bed requested for Telemetry/MedSurg (Inpatient). - Status is Inpatient Admission. mg2 - Condition is Stable. - Problem is new. - Symptoms have improved. Signatures: Dispatcher [employer] EDMS Shaila Yan RN RN Osei Vanessa PA PA cp Gardose, Michele, RN RN mg2 Catracho Paula RN RN [facility] Milan Simpson MD MD 7 Corrections: (The following items were deleted from the chart) 10/21 21:24 21:19 Normal except: WBC 25.3; HGB 12.0; HCT 36.7; MCV 84.1; RDW 17.1; SHENA% 92.0; LYM% cp 1.4; NEUT A 23.3; LYMA 0.4. 10/22 00:04 10/21 23:20 Hospitalization Ordered by Wilmar Vazquez MD for Inpatient Admission. cp Preliminary diagnosis is Chronic atrial fibrillation; Dehydration; Other acute kidney failure; Diarrhea, unspecified. Bed requested for Telemetry/MedSurg (Inpatient). Status is Inpatient Admission. Condition is Stable. Problem is new. Symptoms have improved. 10/22 01:08 00:04 10/21/2020 23:20 Hospitalization Ordered by Wilmar Vazquez MD for Inpatient mw Admission. Preliminary diagnosis is Chronic atrial fibrillation; Dehydration; Other acute kidney failure; Diarrhea, unspecified; Infectious gastroenteritis and colitis, unspecified. Bed requested for Telemetry/MedSurg (Inpatient). Status is Inpatient Admission. Condition is Stable. Problem is new. Symptoms have improved. cp 01:54 01:08 10/21/2020 23:20 Hospitalization Ordered by Wilmar Vazquez MD for Inpatient mg2 Admission. Preliminary diagnosis is Chronic atrial fibrillation; Dehydration; Other acute kidney failure; Diarrhea, unspecified; Infectious gastroenteritis and colitis, unspecified. Bed requested for Telemetry/MedSurg (Inpatient). Status is Inpatient Admission. Condition is Stable. Problem is new. Symptoms have improved. mw
--- NOTE | 2020-10-21 23:21 | ER ---
Nurse's Notes [facility] Name: Angelo Narvaez Age: 65 yrs Sex: Male : 1955 Arrival Date: 10/21/2020 Time: 20:02 Bed 19 [facility] MD: Diagnosis: Chronic atrial fibrillation;Dehydration;Other acute kidney failure;Diarrhea, unspecified;Infectious gastroenteritis and colitis, unspecified Presentation: 10/21 20:12 Chief complaint: Patient states: Diarrhea, abd cramping with nausea for 2 weeks. ll1 SOB/cough-chronic for years. Coronavirus screen: Client denies travel out of the [place] in the last 14 days. cough unrelated to allergies, diarrhea, fatigue, headache, nausea, shaking with chills, shortness of breath, Client presents with at least one sign or symptom that may indicate coronavirus-19. Standard/surgical mask placed on the client. Ebola Screen: Patient denies travel to an Ebola-affected area in the 21 days before illness onset. Initial Sepsis Screen: Does the patient meet any 2 criteria? HR > 90 bpm. Does the patient have a suspected source of infection? Yes: Acute abdominal pain. Risk Assessment: Do you want to hurt yourself or someone else? Patient reports no desire to harm self or others. Onset of symptoms was October 08, 2020. 20:12 Method Of Arrival: Wheelchair ll1 20:12 Acuity: STEPHIE 2 ll1 Historical: - Allergies: 20:15 Prednisone; ll1 - PMHx: 20:15 Atrial Fib; Lung Cancer; HTN; Rheumatoid Arthritis; kidney disease; Pneumothorax; COPD; ll1 Gout; C-diff; - PSHx: 20:15 Appendectomy; Lobectomy, Left upper lobe; ll1 - Immunization history:: Flu vaccine is up to date. - Social history:: Smoking status: Patient/guardian denies using tobacco, the patient reports quitting approximately 4.5 years ago. Screenin:42 Abuse screen: Denies threats or abuse. Abuse screen: Denies injuries from another. mg2 Nutritional screening: No deficits noted. Tuberculosis screening: No symptoms or risk factors identified. 20:43 Fall Risk Ambulatory Aid- None/Bed Rest/Nurse Assist (0 pts). mg2 Assessment: 20:40 General: Appears in no apparent distress. comfortable, Behavior is calm, cooperative. mg2 Pain: Complains of pain in abdomen. Neuro: Level of Consciousness is awake, alert, obeys commands, Oriented to person, place, time, situation. Cardiovascular: Capillary refill < 3 seconds Patient's skin is warm and dry. Respiratory: Airway is patent Respiratory effort is even, unlabored, Respiratory pattern is regular, symmetrical. GI: Reports diarrhea, nausea. : No signs and/or symptoms were reported regarding the genitourinary system. EENT: No signs and/or symptoms were reported regarding the EENT system. Derm: Skin is intact, is healthy with good turgor, Skin is normal. Musculoskeletal: Circulation, motion, and sensation intact. Capillary refill < 3 seconds. 21:17 Reassessment: WBC 25.3 carlos from laboratory called. ED provider aware. rr5 22:24 Reassessment: Patient and/or family updated on plan of care and expected duration. Pain mg2 level reassessed. 23:20 Reassessment: dr Vazquez at bedside examining the patient. mg2 10/22 00:32 Reassessment: Patient appears in no apparent distress at this time. Patient and/or mg2 family updated on plan of care and expected duration. Pain level reassessed. Vital Signs: 10/21 20:12 BP 121 / 60; Pulse 119; Resp 20; Temp 97.0; Pulse Ox 100% on R/A; Weight 58.97 kg; ll1 Height 5 ft. 5 in. (165.10 cm); Pain 4/10; 21:00 BP 145 / 74; Pulse 160; Resp 22; Pulse Ox 100% 2 lpm ; mg2 21:09 BP 136 / 81; Pulse 151; Resp 22; Pulse Ox 100% on 2 lpm NC; mg2 21:15 BP 115 / 75; Pulse 142; Resp 22; Pulse Ox 100% on 2 lpm NC; mg2 22:24 BP 136 / 96; Pulse 131; Resp 22; Pulse Ox 100% on 2 lpm NC; mg2 23:20 BP 122 / 88; Pulse 125; Resp 26; Pulse Ox 100% on 2 lpm NC; mg2 10/22 00:55 BP 105 / 68; Pulse 136; Resp 26; Pulse Ox 100% on 2 lpm NC; mg2 01:23 Pulse 105; Resp 22; Pulse Ox 100% on 2 lpm NC; mg2 10/21 20:12 Body Mass Index 21.63 (58.97 kg, 165.10 cm) ll1 ED Course: 10/21 20:02 Patient arrived in ED. ag3 20:14 Triage completed. ll1 20:15 Arm band placed on Patient placed in an exam room, on a stretcher. ll1 20:21 Osei Vanessa PA is PHCP. cp 20:21 Milan Simpson MD is Attending Physician. cp 20:35 Bhupendra Allen, NIK is Primary Nurse. mg2 20:43 Patient has correct armband on for positive identification. mg2 20:43 No provider procedures requiring assistance completed. mg2 20:58 XRAY Chest (1 view) In Process Unspecified. EDMS 21:00 Inserted saline lock: 20 gauge in right forearm, using aseptic technique. Blood mg2 collected. 21:42 Manual Differential Sent. dm5 23:00 Inserted saline lock: 20 gauge in left forearm, using aseptic technique. Blood mg2 collected. 23:17 CT Abd/Pelvis - Without Contrast In Process Unspecified. EDMS 23:18 Wilmar Vazquez MD is Hospitalizing Provider. cp 12 00:50 air sampling and monitoring on. Pulse ox on. NIBP on. Door closed. Warm blanket given. Assisted to mg2 bedside commode. 00:50 Patient admitted, IV remains in place. mg2 Administered Medications: Discontinued: NS 0.9% 1000 ml IV at 1 bolus Per protocol; 1000 mL bolus 10/21 21:05 Drug: Lopressor 5 mg Route: IVP; Site: right forearm; mg2 10/22 00:35 Follow up: Response: No adverse reaction mg2 10/21 21:15 Drug: Metoprolol 5 mg Route: IVP; Site: right forearm; mg2 10/22 00:32 Follow up: Response: No adverse reaction mg2 10/21 21:21 Drug: NS 0.9% 1000 ml Route: IV; Rate: 1 bolus; Site: right forearm; mg2 10/22 00:34 Follow up: Response: No adverse reaction; IV Status: Completed infusion; IV Intake: mg2 1000ml 10/21 21:22 Drug: Albuterol HFA Inhaler 2 puffs {Note: patient took his own inhaler.} Route: mg2 Inhalation; 10/22 00:35 Follow up: Response: No adverse reaction mg2 10/21 21:31 Drug: Metoprolol 25 mg Route: PO; mg2 10/22 00:35 Follow up: Response: No adverse reaction mg2 10/21 23:08 Drug: Pepcid 20 mg Route: IVP; Site: right forearm; mg2 10/22 00:33 Follow up: Response: No adverse reaction mg2 10/21 23:18 Drug: metroNIDAZOLE 500 mg Volume: 100 ml; Route: IVPB; Infused Over: 30 mins; Site: mg2 right forearm; 10/22 00:34 Follow up: Response: No adverse reaction; IV Status: Completed infusion; IV Intake: mg2 100ml 10/21 23:18 Drug: NS 0.9% 1000 ml Route: IV; Rate: 1 bolus; Site: right forearm; mg2 23:19 Drug: Metoprolol 5 mg Route: IVP; Site: right forearm; mg2 10/22 00:32 Follow up: Response: No adverse reaction mg2 Intake: 00:34 IV: 100ml; Total: 100ml. mg2 00:34 IV: 1000ml; Total: 1100ml. mg2 Outcome: 10/21 23:20 Decision to Hospitalize by Provider. 10/22 01:50 Admitted to Med/surg accompanied by nurse, via stretcher, room 207, with oxygen, with mg2 chart, Report called to NIK Dang Condition: stable Instructed on the need for admit, Demonstrated understanding of instructions. 01:54 Patient left the ED. mg2 Signatures: Dispatcher [employer] EDMS Demetra Mir, RN RN dm5 Osei Vanessa PA PA Bhupendra Allen RN RN mg2 Mary Sun3 Timothy Flores RN RN rr5 Catracho Paula RN RN ll1 Corrections: (The following items were deleted from the chart) 00:51 10/21 23:20 BP 122 / 88; Pulse 125bpm; Resp 18bpm; Pulse Ox 100% 2 lpm Nasal Cannula; mg2 mg2
[2020-10-21] MEDS ORDERED: ALBUTEROL 2.5 MG/3 ML NEB SOL NEB PRN (23:44)
[2020-10-21] MEDS ORDERED: CEFTRIAXONE 1 GM/NS 50 ML 1 GM/50 ML BAG IV SCH (23:49)
[2020-10-21] MEDS ORDERED: AMIODARONE HCL 150 MG in D5W 100 ML IV STA (23:49)
[2020-10-21] MEDS ORDERED: GABAPENTIN 100 MG CAP PO PRN (23:52)
--- NOTE | 2020-10-22 00:10 | P.HP ---
Certification for Inpatient With expected LOS: >2 Midnights Practitioner: I am a practitioner with admitting privileges, knowledge of patient current condition, hospital course, and medical plan of care. Services: Services provided to patient in accordance with Admission requirements found in Title 42 Section 412.3 of the Code of Federal Regulations Patient History Date of Service: 10/22/20 Reason for admission: SOB , diarrhea History of Present Illness: 65 yr old male with HTN , atrial fib on chronic anticoagulation with Eliquis , CKD stage III-IV, lung cancer s/p right upper lobectomy , COPD on home 02, on chronic dexamethasone admitted for new onset worsening SOB since last week , with associated cough , occ yellowish sputum but denies nay cough contact , fever or chills. He state worsening exertional dyspnea , episode similar to prior COPD flares He admit to recent melena stools, s/p workup by PCP showing stool sample positive for presumed occult blood last week . He developed diarrhea since last 4 days with watery effluent but non bloody . He state history of C diff during COPD flare 3 months ago . A colonoscopy done [address] espinal was negative . He denies any abdominal pain . no family hx of colon cancer . on arrival in ER , noted with marked leucocytosis wbc > 25 k , with left shift and bandemia ,elevated creatinine to 3.56 from baseline of 1.8- 2.1 , elevated BNP and CXR shows left lower lobe infiltrate . He is being admitted for further mgt Allergies prednisone Adverse Reaction (Verified 08/03/20 22:01) Shortness of breath Home Medications: Acetaminophen/Diphenhydramine [Tylenol Pm Ex-Strength Caplet] 2 tab PO BEDTIME PRN 07/07/20 Albuterol Sulfate [Proair Hfa] 1 puff IH PRN PRN 07/07/20 Aspirin Chewable [Aspirin Chewable*] 81 mg PO DAILY 07/07/20 Cholecalciferol (Vitamin D3) [Vitamin D3] 2,000 unit PO DAILY 07/07/20 Cyclobenzaprine [Flexeril*] 5 mg PO BEDTIME PRN 07/07/20 Ferrous Sulfate [Ferrous Sulfate*] 325 mg PO DAILY 07/07/20 Fluticasone/Umeclidin/Vilanter [Trelegy Ellipta 100-62.5-25] 1 puff IH DAILY 07/07/20 Folic Acid 3 mg PO DAILY 07/07/20 Gabapentin [Neurontin*] 300 mg PO BID PRN 07/07/20 Ipratropium/Albuterol Sulfate [Iprat-Albut 0.5-3(2.5) mg/3 ml] 1 inh IH BIDP PRN 07/07/20 LORazepam [Ativan*] 0.5 mg PO BEDTIME PRN 07/07/20 Levothyroxine [Synthroid*] 0.1 mg PO [id number] 07/07/20 Magnesium Oxide [Magnesium] 400 mg PO DAILY 07/07/20 Metoprolol Succinate [Toprol Xl*] 50 mg PO BID 07/07/20 Multivitamin with Minerals [One Daily Plus Minerals] 1 tab PO DAILY 07/07/20 Omeprazole [Prilosec] 40 mg PO [id number] 07/07/20 allopurinoL [Zyloprim*] 100 mg PO BEDTIME 07/07/20 Simvastatin 20 mg PO BEDTIME 07/25/20 Calcium Carbonate [Tums Regular*] 1,000 mg PO DAILY #30 tab 07/28/20 Clopidogrel Bisulfate [Plavix*] 75 mg PO DAILY #30 tablet 07/28/20 Acetaminophen 500 mg PO DAILY PRN 08/03/20 L.acidoph,Paracasei, B.lactis [Probiotic] 1 each PO DAILY 08/03/20 Leflunomide 20 mg PO BEDTIME 08/03/20 Albuterol Neb [Proventil 0.083% Neb Soln] 2.5 mg NEB Q6HP PRN amp 08/05/20 Apixaban [Eliquis] 5 mg PO BID tablet 08/05/20 Apixaban [Eliquis] 5 mg PO BID 30 Days #60 tablet 08/05/20 Atorvastatin Calcium [Lipitor*] 20 mg PO BEDTIME tab 08/05/20 Calcium Carbonate [Oscal*] 1,000 mg PO DAILY tab 08/05/20 Furosemide [Lasix] 40 mg PO DAILY PRN #30 08/05/20 Spironolactone [Aldactone*] 25 mg PO DAILY #30 tab 08/05/20 dexAMETHasone [Dexamethasone] 2 mg PO BID #60 08/05/20 levoFLOXacin [Levaquin*] 250 mg PO DAILY #7 tab 08/05/20 - Past Medical/Surgical History Diabetic: No -: Hypertension -: COPD -: Atrial fibrillation on chronic anticoagulation therapy -: Lung cancer(does not know which type) -: Gout -: Chronic diastolic congestive heart failure -: Chronic kidney disease stage 4 -: Iron deficiency anemia -: Hypothyroidism -: left upper lung lobectomy with lymph node resection -: appendectomy -: tonsillectomy Psychosocial/ Personal History: . Currently lives at home with his - Family History Father -: Heart disease, Hypertension Notes: at 75 yo Mother -: Cancer Notes: no medical history, still living Brother -: Hypertension, Cancer Notes: melanoma Sister -: Other (see notes) Notes: fibromyalgia - Social History Alcohol use: Yes CD- Drugs: Yes Caffeine use: Yes Review of Systems General: Sweats, Weakness Eyes: Unremarkable ENT: Unremarkable Respiratory: Cough, Shortness of Breath, SOB with Excertion Cardiovascular: Orthopnea, Edema Gastrointestinal: Diarrhea, Melena Genitourinary: Unremarkable Musculoskeletal: Pedal edema Integumentary: Unremarkable Neurological: Weakness Physical Examination - Physical Exam General: Alert, In no apparent distress, Cooperative HEENT: Atraumatic, Normocephalic, PERRLA Neck: 2+ carotid pulse no bruit, JVD not distended, No Thyromegaly Respiratory: Expiratory wheezes, Rhonchi/gurgles Cardiovascular: Normal S1 S2, Edema, Irregular heart rate/rhythm Gastrointestinal: Normal bowel sounds, Soft and benign, Non-distended, No ascites, No rebound Musculoskeletal: Swelling Neurological: Normal tone, Sensation intact, Cranial nerves 3-12 intact External genitalia: Edema - Studies Laboratory Data (last 24 hrs) 10/21/20 21:00: PT 18.7 H, INR 1.60 10/21/20 21:00: WBC 25.3 H*, Hgb 12.0 L, Hct 36.7 L, Plt Count 401 10/21/20 21:00: Sodium 130 L, Potassium 5.1, BUN 69 H, Creatinine 3.56 H, Glucose 91, Magnesium 3.0 H, Total Bilirubin 0.3, AST 21, ALT 17, Alkaline Phosphatase 74 Microbiology Data (last 24 hrs): 10/21/20 21:40 Nasopharnyx Influenza Type A Antigen Screen - Final 10/21/20 21:40 Nasopharnyx Influenza Type B Antigen Screen - Final Assessment and Plan - Problems (Diagnosis) (1) SHARITA (acute kidney injury) Current Visit: No Status: Acute (2) Acute worsening of stage 3 chronic kidney disease Current Visit: No Status: Acute (3) Anasarca Current Visit: No Status: Acute (4) COPD exacerbation Onset Date: 04/27/18 Current Visit: No Status: Acute (5) Congestive heart failure, acute Current Visit: No Status: Acute (6) Diarrhea Current Visit: No Status: Acute (7) History of lung cancer Current Visit: No Status: Acute (8) Atrial fibrillation Current Visit: No Status: Chronic Qualifiers: Atrial fibrillation type: chronic (9) Chronic anticoagulation Current Visit: No Status: Chronic (10) Oxygen dependent Current Visit: No Status: Chronic - Advance Directives Does patient have a Living Will: No Does patient have a Durable POA for Healthcare: No - Code Status/Comfort Care Code Status Assessed: Yes Code Status: Full Code Physician Review: Patient Assessed, Agree with Above Assessment and Plan Physician Review Additional Text: # Diarrhea- may be due to C diff -Given recent melena episode, possible need for colitis workup -follow CT abdomen -start emprical vanco po qid -follow stool workup # Left Pneumonia - may be Community acquired -start Rocephin -obtain sputum culture and blood cx -monitor wbc trend -r/o Covid pna #HTN controlled , c/w Toprol # CHF-likely diastolic with acute flare - hold Spironolactone since elevated k and ARF - increase lasix to IV doses 40 mg q12h -monitor i/o -daily weights -follow TSH -follow with cardiology eval in am -serial cardiac enzymes #COPD exacerbation - c/w home 02 - keep sat > 90 - switch home dexa to IV decadron since prednisone allergy # SHARITA on baseline CKD- may be due to sepsis vs cardiorenal syndrome - Doubt due to overdiruesis -will dc IVF NS - c/w diuretics -obtain fena -correct associated met acidosis , start sodium bicarb tid now -no urgent need for renal sonogram now since less likely obstructive -follow with renal team in am # Hyponatremia/Hyperkalemia/Metabolic Acidosis - as above -follow with acidosis correction # Atrial fib - with RVR , rate up to 140s - c/w Toprol - will dose Amiodarone 150 mg x1 now for rate control -c/w A/C with Eliquis # Possible GIB - H/H stable , follow - may need GI endoscopy after C diff ruled out and negative CT abd # Advance directives- discussed, patient agreeable to full code status. Total time spent > 70 mins
[2020-10-22] MEDS ORDERED: CEFTRIAXONE/SWI 1gm 1 GM/10 ML SYR IV ONE (01:00)
[2020-10-22] MEDS: VANCOMYCIN ORAL SOLN 250 MG/5 ML OSYR PO SCH ×4 (01:00→16:50)
[2020-10-22] MEDS ORDERED: IPRATROPIUM BROM 0.5MG/2.5ML ONE (01:19)
[2020-10-22] MEDS ORDERED: AMIODARONE HCL 150 MG/3 ML INJ IV ONE (01:19)
[2020-10-22] MEDS ORDERED: D5W 100 ML IV ONE (01:19)
[2020-10-22] MEDS ORDERED: LEVALBUTEROL 1.25 MG/3 ML NEB ONE (01:41)
[2020-10-22] MEDS: IPRATROPIUM BROM 0.5MG/2.5ML NEB SCH ×4 (02:00→19:45)
[2020-10-22] MEDS: dexAMETHasone 10 MG/ML VIAL IV SCH ×3 (02:59→16:37)
[2020-10-22] MEDS: SODIUM BICARB 325 MG TAB PO SCH ×4 (02:59→20:33)
[2020-10-22] MEDS: FUROSEMIDE 40 MG/4 ML VIAL IV SCH ×3 (03:00→16:37)
[2020-10-22] MEDS ORDERED: VANCOMYCIN 500 MG/VIAL ONE (03:18)
[2020-10-22 03:39] LABS: Creatine Phosphokinase 50 U/L (39-308); Ferritin 231.5 ng/mL (26-388); Transferrin 146 mg/dL (200-360); Troponin I < 0.02 ng/mL (0.0-0.045)
[2020-10-22] MEDS: LEVOTHYROXINE SOD 0.1 MG TAB PO SCH (05:45)
[2020-10-22] MEDS: PANTOPRAZOLE 40MG TABLET PO SCH (05:45)
[2020-10-22] MEDS: ACETAMINOPHEN 500 MG TAB PO PRN (06:44)
[2020-10-22 07:50] LABS: Urine Bacteria <20 /HPF (NONE SEEN); Urine RBC <5 /HPF (NONE SEEN)
[2020-10-22 07:57] LABS: Absolute Lymphocytes (CBC) 0.2 K/uL (0.7-4.9); Basophils % 0.1 % (0-1.3); Hematocrit 33.9 % (39.6-49.0); Lymphocytes % 1.4 % (15.3-44.8); RBC Red Blood Cell Count 3.92 M/uL (4.33-5.43)
[2020-10-22 08:46] LABS: Potassium 4.7 mmol/L (3.5-5.1)
[2020-10-22 08:47] LABS: Albumin 1.7 g/dL (3.4-5.0); Bilirubin Total 0.2 mg/dL (0.2-1.0); Protein, Total 5.4 g/dL (6.4-8.2)
[2020-10-22] MEDS: FOLIC ACID 1 MG TABLET PO SCH (08:47)
[2020-10-22] MEDS: ASPIRIN 81 MG CHEWABLE TABLET PO SCH (08:47)
[2020-10-22] MEDS: CLOPIDOGREL 75 MG TABLET PO SCH (08:47)
[2020-10-22] MEDS: CALCIUM CARBONATE 500 MG TAB PO SCH (08:48)
[2020-10-22] MEDS: FERROUS SULFATE 325 MG TAB PO SCH (08:48)
[2020-10-22] MEDS: METOPROLOL XL 50 MG TAB PO SCH ×2 (08:48→20:36)
[2020-10-22] MEDS ORDERED: MAGNESIUM OXIDE 400 MG TAB PO SCH (09:00)
[2020-10-22] MEDS ORDERED: APIXABAN 5 MG TABLET PO SCH (09:00)
--- NOTE | 2020-10-22 10:31 | P.PN ---
Subjective Date of Service: 10/22/20 Chief Complaint: SOB , diarrhea Patient reports loose stools and some epigastric pain. He states he has been coughing occasionally. He has been afebrile. Leukocytosis is trending down. Physical Examination - Vital Signs Temperature: 97.2 F Blood Pressure: 119/71 Pulse: 110 Respirations: 20 Pulse Ox (%): 99 - Physical Exam General: Alert, In no apparent distress HEENT: Mucous membr. moist/pink Neck: JVD not distended Respiratory: Clear to auscultation bilaterally, Normal air movement Cardiovascular: Normal S1 S2, Edema (1+ bilateral lower extremity), Irregular heart rate/rhythm Gastrointestinal: Normal bowel sounds, Soft and benign Musculoskeletal: No swelling, No tenderness Integumentary: No rashes Neurological: Other (Nonfocal) - Studies Laboratory Data (last 24 hrs) 10/21/20 21:00: PT 18.7 H, INR 1.60 10/21/20 21:00: WBC 25.3 H*, Hgb 12.0 L, Hct 36.7 L, Plt Count 401 10/21/20 21:00: Sodium 130 L, Potassium 5.1, BUN 69 H, Creatinine 3.56 H, Glucose 91, Magnesium 3.0 H, Total Bilirubin 0.3, AST 21, ALT 17, Alkaline Phosphatase 74 Microbiology Data (last 24 hrs): 10/21/20 21:40 Nasopharnyx Influenza Type A Antigen Screen - Final 10/21/20 21:40 Nasopharnyx Influenza Type B Antigen Screen - Final Assessment And Plan - Current Problems (Diagnosis) (1) Diarrhea Current Visit: No Status: Acute (2) Acute on chronic diastolic heart failure Current Visit: Yes Status: Acute (3) Pneumonia Current Visit: Yes Status: Acute (4) Acute worsening of stage 3 chronic kidney disease Current Visit: No Status: Acute (5) Generalized abdominal pain Current Visit: No Status: Acute (6) Atrial fibrillation Current Visit: No Status: Chronic Qualifiers: Atrial fibrillation type: chronic (7) Moderate malnutrition Current Visit: Yes Status: Acute - Plan Patient diarrhea and leukocytosis point C. diff infection. He also has hypoalbuminemia secondary to poor oral intake and probably malabsorption. Continue oral vancomycin. Continue IV Rocephin. Stool for C. diff is pending. Nutritional supplementation. IV Lasix for anasarca. Monitor renal function. No active bleeding. Noted drop in hemoglobin with me secondary to hemodilution. Continue Eliquis for now and monitor for active bleeding. Colonoscopy as an outpatient after colitis has been adequately treated. Physician Review: Patient Assessed, Agree with Above Assessment and Plan Physician Review Additional Text: # Diarrhea- may be due to C diff -Given recent melena episode, possible need for colitis workup -follow CT abdomen -start emprical vanco po qid -follow stool workup
[2020-10-22] MEDS: MORPHINE 2 MG/ML SYR IV PRN ×2 (11:01→20:41)
[2020-10-22 11:31] LABS: C.diff Antigen/Toxin Ag pos : Tox pos (NEG : NEG)
[2020-10-22] MEDS ORDERED: NA CHLORIDE 0.9% 1,000 ML IV SCH (16:00)
[2020-10-22] MEDS: GABAPENTIN 300 MG CAP PO PRN (16:50)
--- NOTE | 2020-10-22 18:06 | RAD REPORT ---
EXAM DESCRIPTION: CT ABDOMEN PELVIS WITHOUT IV CONTRAST CLINICAL HISTORY: ABD PAIN TECHNIQUE: Contiguous axial images obtained through the abdomen and pelvis without IV contrast. Nasreen nal and sagittal reformatted images were provided. This exam was performed according to our departmental dose-optimization program, which includes autom ated exposure control, adjustment of the mA and/or kV according to patient size and/or use of iterati ve reconstruction technique. COMPARISON: 07/06/2020 FINDINGS: Lung bases: Left pleural thickening and left greater than right basilar pleural parenchyma l scar. Coronary artery calcification. Liver: Grossly unremarkable Gallbladder and biliary system: Unremarkable Pancreas: Grossly unremarkable Spleen: Grossly unremarkable Adrenals: Unremarkable Kidneys: Left renal cysts, a few hyperdense again demonstrated. An index cyst at the anterior upper p ole on the left measures 4.9 cm. 5 mm calculus at the upper pole collecting system on the right. No h ydronephrosis. Bowel: The large bowel is moderately thickened diffusely. No obstruction. Appendix: Reported appendectomy. Normal caliber appendiceal stump. Urinary bladder: Unremarkable Reproductive: Unremarkable as visualized Lymph nodes: No pathologically enlarged lymph nodes. Peritoneum: No focal fluid collection. No free air. Vessels: Severe atherosclerotic disease. No abdominal aortic aneurysm. Abdominal wall: Tiny fat-containing umbilical hernia. Small bilateral fat-containing inguinal hernias . Bones: Mild multilevel spondylosis. No acute fracture. Dural calcification again demonstrated. IMPRESSION: 1. Diffusely thickened large bowel compatible with nonspecific colitis. 2. Other findings as above. Electronically signed by: Jamilah Lazaro MD 10/21/2020 11:55 PM [facility] [facility] Due to temporary technical issues with the PACS/Fluency reporting system, reports are being signed by the in house radiologists without review as a courtesy to insure prompt reporting. The interpreting radiologist is fully responsible for the content of the report.
[2020-10-22] MEDS ORDERED: DIGOXIN 0.25 MG/ML AMP IV ONE (18:39)
[2020-10-22] MEDS: APIXABAN 2.5 MG TABLET PO SCH (20:34)
[2020-10-22] MEDS: ATORVASTATIN 20 MG TAB PO SCH (20:36)
[2020-10-22] MEDS: LORAZEPAM 0.5 MG TABLET PO PRN (20:41)
[2020-10-22] MEDS ORDERED: CEFTRIAXONE/SWI 1gm 1 GM/10 ML SYR IV SCH (21:00)
--- NOTE | 2020-10-22 22:03 | CON ---
Date of Consultation: 10/22/2020 Chief Complaint: Acute on chronic kidney injury. History Of Present Illness: The patient has chronic kidney disease stage 3. Baseline GFR 30. He came to emergency room because of diarrhea. He has several loose bowel movements. He is admitted for C diff colitis. The patient was found to have acute on chronic kidney injury. GFR at this point dropped to 20, creatinine is over 3. The patient's baseline creatinine is 1.8. The patient has multiple medical problems including history of hypertensive heart and kidney disease, hypertension, atrial fibrillation on chronic anticoagulation with Eliquis, history of lung cancer and right upper lobectomy, COPD on O2 nasal cannula and chronic dexamethasone. He was admitted with worsening shortness of breath with associated cough and yellowish sputum, but he denies sick contacts, fever, or chills. He denies difficulty with urination and denies nonsteroidal anti-inflammatory medication. He has a recent multiple stool including melenic stool positive for blood. He developed diarrhea 4 days ago with very active loose bowel movements, watery. He has history of C diff colitis and previously was admitted for C diff colitis and COPD flare. He was found to have severely elevated leukocytosis. WBC was over 25,000. Creatinine level was 3.56 and baseline usually ranging 1.8 to 2.1. Chest x-ray showed lower lobe infiltrate. The patient is started on antibiotics for pneumonia and is treated for C diff colitis. Review of Systems: General: Denies PND or orthopnea. Eyes: Denies vision changes. Ears, Nose, Mouth, and Throat: Denies sore throat or earache. Respiratory: Denies wheezing. He has some shortness of breath with exertion. GI: He has several loose bowel movements and melena. : Denies dysuria or hematuria. All other systems reviewed and all are negative. Past Medical History: Hypertension, chronic kidney disease stage 3, COPD, hypertensive heart and kidney history, history of C diff colitis, hyperlipidemia, anemia, CKD, COPD exacerbation on chronic oxygen and steroid treatment, tonsillectomy, appendectomy, left upper lobe lobectomy with lymph node resection, hypothyroidism, iron deficiency anemia, chronic diastolic congestive heart failure, gout. Family History: Mother has heart disease, hypertension. Mother with cancer. Brother with hypertension and cancer. Sister with fibromyalgia. Social History: no alcohol, no tobacco, no drugs Physical Examination: General: The patient is awake, alert, follows commands. Eyes: Anicteric sclerae. EOMI. Ears, Nose, Mouth, and Throat: Oral mucosa moist. No pallor. Neck: Supple. No bruits. Lungs: Diminished breath sounds at bases. Heart: S1, S2. No pericardial friction rub Abdomen: Soft, benign. Extremities: Edema present in both legs. No clubbing. No cyanosis. Neurological: Moving extremities. Cranial nerves intact. Psychiatric: Alert and oriented x3. Normal affect. Impression And Plan: 1. Severe diarrhea. The patient is treated for Clostridium difficile colitis. The patient was found to have severe leukocytosis. He is undergoing workup for possible bacteremia and to rule out urinary tract infection. Clinically, the patient does not have symptoms of urinary tract infection. 2. Hyponatremia, hyperkalemia, metabolic acidosis. The patient is on IV fluids. Adjust sodium bicarbonate replacement as needed. 3. Acute on chronic kidney injury. Baseline creatinine level is 1.8. The patient was started on IV fluids. Diuretics were stopped at this point. The patient is on sodium bicarbonate tablet to treat metabolic acidosis. Plan is to avoid nonsteroidal anti-inflammatory medication. 4. Colitis, possible Clostridium difficile and the patient will have CT scan of the abdomen and pelvis without contrast. 5. Hypertension. Adjust medication according to blood pressure. ABILIO/RYAN Voice ID: [id number] Report ID: [id number] MOON
[2020-10-23] MEDS: VANCOMYCIN ORAL SOLN 250 MG/5 ML OSYR PO SCH ×3 (00:36→16:15)
[2020-10-23] MEDS: dexAMETHasone 10 MG/ML VIAL IV SCH ×3 (00:36→16:15)
[2020-10-23] MEDS: IPRATROPIUM BROM 0.5MG/2.5ML NEB SCH ×4 (01:25→20:05)
[2020-10-23 04:26] LABS: Absolute Lymphocytes (CBC) 0.1 K/uL (0.7-4.9); Basophils % 1.1 % (0-1.3); Hematocrit 35.9 % (39.6-49.0); Lymphocytes % 1.4 % (15.3-44.8); MPV 8.2 fL (7.6-11.3); RBC Red Blood Cell Count 4.26 M/uL (4.33-5.43)
[2020-10-23 04:45] LABS: Potassium 4.4 mmol/L (3.5-5.1)
[2020-10-23] MEDS: LEVOTHYROXINE SOD 0.1 MG TAB PO SCH (06:04)
[2020-10-23] MEDS: PANTOPRAZOLE 40MG TABLET PO SCH (06:05)
[2020-10-23] MEDS ORDERED: NA CHLORIDE 0.9% 1,000 ML IV SCH (07:00)
--- NOTE | 2020-10-23 07:36 | EKG ---
Test Date: 2020-10-21 Test Time: 20:56:19 Card Fixer: MEASUREMENT RESULTS: Intervals: Rate: 161 [place]: QRSD: 102 QT: 292 QTc: 477 [place]: P: [place]: QRS: -75 T: 30 INTERPRETIVE STATEMENTS: Atrial fibrillation with rapid ventricular response with premature ventricular or aberrantly conducted complexes Left axis deviation Incomplete right bundle branch block Anteroseptal infarct, age undetermined Abnormal ECG Compared to ECG 08/03/2020 16:47:29 Ventricular premature complex(es) now present Left-axis deviation now present Incomplete right bundle-branch block now present Sinus rhythm no longer present Right bundle-branch block no longer present Myocardial infarct finding still present Electronically Signed On 10-23-20 07:34:34 DRUM TENDER by Nasir Bailey
--- NOTE | 2020-10-23 07:58 | RAD REPORT ---
EXAM DESCRIPTION: Dorothy Single View10/23/2020 6:29 am CLINICAL HISTORY: Shortness breath COMPARISON: October 21 FINDINGS: The lungs appear clear of acute infiltrate. The heart is normal size. Left lung volume lo ss unchanged
[2020-10-23] MEDS: NA CHLORIDE 0.9% 1,000 ML IV SCH ×3 (08:57→18:57)
[2020-10-23] MEDS: SODIUM BICARB 325 MG TAB PO SCH ×3 (09:20→20:46)
[2020-10-23] MEDS: CALCIUM CARBONATE 500 MG TAB PO SCH (09:20)
[2020-10-23] MEDS: FERROUS SULFATE 325 MG TAB PO SCH (09:21)
[2020-10-23] MEDS: FOLIC ACID 1 MG TABLET PO SCH (09:21)
[2020-10-23] MEDS: CLOPIDOGREL 75 MG TABLET PO SCH (09:21)
[2020-10-23] MEDS: ASPIRIN 81 MG CHEWABLE TABLET PO SCH (09:21)
[2020-10-23] MEDS: APIXABAN 2.5 MG TABLET PO SCH ×2 (09:21→20:47)
[2020-10-23] MEDS: METOPROLOL XL 50 MG TAB PO SCH ×2 (09:21→20:47)
--- NOTE | 2020-10-23 09:43 | P.PN ---
Subjective Date of Service: 10/23/20 Chief Complaint: SOB , diarrhea Patient reports loose stools, about 6 times last night. He states he has been coughing occasionally. He has been afebrile. Leukocytosis has resolved. Serum creatinine increased today. Physical Examination - Vital Signs Temperature: 96.8 F Blood Pressure: 118/79 Pulse: 116 Respirations: 20 Pulse Ox (%): 100 - Physical Exam General: Alert, In no apparent distress Neck: JVD not distended Respiratory: Clear to auscultation bilaterally, Normal air movement Cardiovascular: No edema, Normal S1 S2, Irregular heart rate/rhythm Gastrointestinal: Soft and benign, Non-distended, No tenderness Musculoskeletal: No swelling, No tenderness Integumentary: No rashes, No erythema Neurological: Normal strength at 5/5 x4 extr Assessment And Plan - Current Problems (Diagnosis) (1) Diarrhea Current Visit: No Status: Acute (2) Acute on chronic diastolic heart failure Current Visit: Yes Status: Acute (3) Pneumonia Current Visit: Yes Status: Acute (4) Acute worsening of stage 3 chronic kidney disease Current Visit: No Status: Acute (5) Generalized abdominal pain Current Visit: No Status: Acute (6) Atrial fibrillation Current Visit: No Status: Chronic Qualifiers: Atrial fibrillation type: chronic (7) Moderate malnutrition Current Visit: Yes Status: Acute (8) Hyponatremia Current Visit: Yes Status: Acute - Plan C. diff toxins postive. He also has hypoalbuminemia secondary to poor oral intake and probably malabsorption. Continue oral vancomycin. Discontinue IV Rocephin. Nutritional supplementation. Consult to grocery clerk. Hold Lasix given increase serum creatinine today. Start IV fluid-NS to treat SHARITA and hyponatremia. Monitor renal function. No active bleeding. Noted drop in hemoglobin with may be secondary to hemodilution. Hemoglobin is stable. Continue Eliquis for now and monitor for active bleeding. Colonoscopy as an outpatient after colitis has been adequately treated.
[2020-10-23] MEDS: ATORVASTATIN 20 MG TAB PO SCH (20:47)
--- NOTE | 2020-10-23 21:34 | PN ---
Chief Complaint: Acute on chronic kidney injury. History Of Present Illness: The patient has chronic kidney disease stage 3B. Baseline GFR 30. He came to emergency room because of diarrhea. He has been treated with p.o. vancomycin for C diff colitis. He was complaining of several loose bowel movement. He denies melena or hematemesis. Baseline creatinine level is 1.8. During this admission, creatinine is over 3. The patient is started on IV fluids. He has history of congestive heart failure. Previously, he was taking diuretics. Diuretics were stopped due to acute kidney injury. ROS: The patient denies PND or orthopnea. Physical Examination: Lungs: Diminished breath sounds at bases. Heart: S1, S2. Abdomen: Soft, benign. Extremities: Slight edema. Impression And Plan: 1. Severe acute kidney injury , nonoliguric in setting of renal hypoperfusion due to ongoing colitis associated with severe leukocytosis, likely secondary to C diff colitis. Creatinine level was 3.56 and baseline range of 1.8 to 2.1. Over the last 24 hours, renal function slightly declined and GFR is 18. Plan is to hold diuretic and continue IV fluids. The patient is tolerating hydration with IV infusion. 2. History of hypomagnesemia. During this admission, magnesium is elevated and magnesium was stopped. 3. Hyponatremia, hyperkalemia, metabolic acidosis. The patient is on IV fluids. Adjust sodium bicarbonate replacement as needed to treat metabolic acidosis. 4. Colitis, possible Clostridium difficile. Continue p.o. vancomycin level. CT scan of the abdomen and pelvis without contrast was done to evaluate possible colitis. ABILIO/RYAN Voice ID: [id number] Report ID: [id number] MOON
[2020-10-24] MEDS: dexAMETHasone 10 MG/ML VIAL IV SCH ×3 (01:12→16:09)
[2020-10-24] MEDS: VANCOMYCIN ORAL SOLN 250 MG/5 ML OSYR PO SCH ×3 (01:12→16:10)
[2020-10-24] MEDS: NA CHLORIDE 0.9% 1,000 ML IV SCH ×2 (01:12→13:58)
[2020-10-24] MEDS: MORPHINE 2 MG/ML SYR IV PRN ×3 (01:21→23:18)
[2020-10-24] MEDS: IPRATROPIUM BROM 0.5MG/2.5ML NEB SCH ×4 (01:30→20:00)
[2020-10-24] MEDS: PANTOPRAZOLE 40MG TABLET PO SCH (05:36)
[2020-10-24] MEDS: LEVOTHYROXINE SOD 0.1 MG TAB PO SCH (05:36)
[2020-10-24 06:09] LABS: Absolute Lymphocytes (CBC) 0.2 K/uL (0.7-4.9); Basophils % 0.2 % (0-1.3); Hematocrit 31.7 % (39.6-49.0); Lymphocytes % 1.9 % (15.3-44.8); MPV 7.9 fL (7.6-11.3); RBC Red Blood Cell Count 3.71 M/uL (4.33-5.43)
[2020-10-24 06:20] LABS: Potassium 4.7 mmol/L (3.5-5.1)
--- NOTE | 2020-10-24 08:05 | CON ---
Date of Consultation: 10/22/2020 History Of Present Illness: Mr. Narvaez is a 65-year-old white male. He is known to us from previo us office visits and hospital admission. He was admitted to Dr. Simmons with acute kidney injury, rosalind rrhea, atrial fibrillation, and I was consulted. He is 65, has a history of chronic systolic congest [place] heart failure, ejection fraction 38% on July 2020. He also has a history of paroxysmal atri al fibrillation, he is on Eliquis for that. He also has a history of COPD, hypertension, hypothyroid ism, and coronary artery disease. He came in with diarrhea, dehydration, elevated white count of 25, 000. His creatinine was 3.15. His BNP was 3680. He was in atrial fibrillation at a rate of 84. He tested positive for Clostridium difficile. No cardiac symptoms really reported. He is now on his h ome medication plus antibiotics and steroids. He is feeling better. His atrial fibrillation rate is only 84. He is afebrile. He denied chest pain. He denied any fever or chills. He denied any naus ea or vomiting. He denied PND, orthopnea, pedal edema, palpitations, or syncope. Past Medical History: As stated above. Allergies: HE IS ALLERGIC TO PREDNISONE. Review of Systems: Negative. Social History: Negative. Family History: Noncontributory. Medications: His medications at home include Eliquis, aspirin, Plavix, Lasix, inhaler, metoprolol, S ynthroid, Zocor, and Aldactone. Physical Examination: Vital Signs: Stable. He was afebrile. He was in atrial fibrillation, rate of 84. HEENT: Negative . Neck: Supple. No bruit. Chest: Clear. Cardiac: Revealed atrial fibrillation. Abdomen: Benign. Extremities: Reveal no clubbing, cyanosis, or edema. Diagnostic Data: As stated earlier. Impression And Plan: 1.Chronic atrial fibrillation, rate controlled on Eliquis and metoprolol. I will continue that ashish men. In medication list; aspirin and Plavix and he should not be on all these 3. I think he should be on Eliquis and aspirin only. No Plavix. 2.Acute renal failure with a creatinine of 3.15. I think we should hold his Lasix and hydrate him. I think he will be hydrated. Dr. Bradshaw is following the patient. 3.Chronic systolic congestive heart failure, ejection fraction 38%. Patient is not experiencing any acute exacerbation at this point. 4.Elevated white count, secondary to Clostridium difficile. 5.Elevated BNP secondary to chronic failure. 6.Dyslipidemia, on Zocor. 7.Hypothyroidism, on Synthroid. Patient's rate initially when he came in was rapid secondary to deh ydration and Clostridium difficile. He received 1 dose of digoxin, 1 dose of amiodarone. He is on m etoprolol. His rate is controlled. I would not change any of his regimen except continue Eliquis. Continue metoprolol. Stop Lasix. Hydrate him. I would definitely stop the Plavix. I do not see an y need for him to be on Plavix in addition to Eliquis at this point. We will be available for questi ons if the need arises. No need to repeat any cardiac workup. ENRIQUE/RYAN Voice ID: [id number] Report ID: [id number]
[2020-10-24] MEDS: SODIUM BICARB 325 MG TAB PO SCH ×2 (09:14→21:04)
[2020-10-24] MEDS: FOLIC ACID 1 MG TABLET PO SCH (09:14)
[2020-10-24] MEDS: APIXABAN 2.5 MG TABLET PO SCH ×2 (09:15→21:04)
[2020-10-24] MEDS: CALCIUM CARBONATE 500 MG TAB PO SCH (09:15)
[2020-10-24] MEDS: METOPROLOL XL 50 MG TAB PO SCH ×2 (09:15→21:05)
[2020-10-24] MEDS: ASPIRIN 81 MG CHEWABLE TABLET PO SCH (09:15)
[2020-10-24] MEDS: FERROUS SULFATE 325 MG TAB PO SCH (09:16)
--- NOTE | 2020-10-24 11:27 | P.PN ---
Subjective Date of Service: 10/24/20 Chief Complaint: SOB , diarrhea Subjective: Improving (feeling better, continues with loose stool but less often, still with low appetite) Physical Examination - Vital Signs Temperature: 96.6 F Blood Pressure: 133/68 Pulse: 135 Respirations: 20 Pulse Ox (%): 99 - Physical Exam General: Alert, In no apparent distress HEENT: Sclerae nonicteric Respiratory: Crackles/rales (mild at left lung base) Cardiovascular: No edema, Irregular heart rate/rhythm Gastrointestinal: Soft and benign, Non-distended Musculoskeletal: No tenderness Integumentary: No rashes Neurological: Normal speech, Normal affect - Studies Microbiology Data (last 24 hrs): 10/21/20 20:45 Stool Culture & Sensitivity - Final Assessment & Plan Physician Review Additional Text: Diarrhea secondary to recurrent C.diff colitis Pneumonia Acute on chronic diastolic heart failure SHARITA on CKD3 Generalized abdominal pain Chronic Atrial fibrillation Moderate malnutrition Hyponatremia C. diff positive, hypoalbuminema secondary to poor PO intake / malabsorption Continue PO Vanc, WBC improving, pt slowly improving as well Was on rocephin for possible pneumonia, sputum growing pseudomonas, will avoid fluoroquinolones given afib, start cefepime toda consult ID given recurrent c diff and psedumonas pneumonia continue Nutritional supplementation SHARITA improving, once lasix held and given gentle IVF, pt likely dry from diarrhea & decreased Po intake Cardiology consulted for afib, continue current regimen. dc'd plavix per cardiology recommendations Continue Eliquis for now and monitor for active bleeding. Colonoscopy as an outpatient after colitis has been adequately treated. dispo: anticipate dc home in 24-48hrs Time Spent Managing Pts Care (In Minutes): 35
[2020-10-24] MEDS ORDERED: CEFEPIME 1 GM/VIAL IV SCH (11:30)
--- NOTE | 2020-10-24 11:59 | P.PN ---
Subjective Date of Service: 10/24/20 Chief Complaint: SOB , diarrhea Subjective A 64 Y/o man with PMHx of CKD IIIb/IV baseline Cr 2.2-2.4 , COPD, CHF on lasix and aldacotne , HTN , Afib and HX of remote Lunf Ca Pt presented with SOB an diarrhea cr was 3.5, and improved to 2.9 on IVF today no new complaints will reduce IV F will dc PPI will reduce sodium bicarb Physical exam general: AAOX3, NAD , Neck; Supple, No elevated JVD hear: RRR, normal S1,2 no murmur or rub Chest: decreased air entry B/l with mild wheezes Abdomen: Soft , Nt Extremities no edema A/P SHARITA oc CKD IIIb/IV due to overdiuresis Cr baseline 2.2-2.4 , US: no hydro will reduce IVF C.diff WBC normalized pt with recurrent episodes of C.diff, might benefit from fecal transplant anemia of chronic disease Cont Po iron colonoscopy as an OP , after diarrhea resolves COPD cont inhalers and steroids pulmonary on board HX of CHF cont to hold diuretics complex renal cysts W/U as an OP Physical Examination - Vital Signs Temperature: 96.6 F Blood Pressure: 133/68 Pulse: 135 Respirations: 20 Pulse Ox (%): 99 - Studies Microbiology Data (last 24 hrs): 10/21/20 20:45 Stool Culture & Sensitivity - Final Assessment And Plan Physician Review: Patient Assessed, Agree with Above Assessment and Plan
[2020-10-24] MEDS: CEFEPIME/SWI 1gm 10 ML IV SCH (13:59)
[2020-10-24] MEDS: FAMOTIDINE 20 MG TAB PO SCH (16:10)
--- NOTE | 2020-10-24 17:02 | CON ---
History Of Present Illness: This is a 65-year-old male. I was consulted for C. diff colitis and Pse udomonas aeruginosa in his sputum. The patient has a longstanding history of tobacco use and lung ca ncer, which was operated in 2016 with removal of 27 lymph nodes from his mediastinum. The patient al so received chemotherapy in 2017. He is on home oxygen at home, only nighttime. Also has been florence baker problems with diarrhea, which has been diagnosed as C. diff colitis on previous admission, which wa s in July. Coming in again with diarrhea. Also had some blood at his primary care's office and has a stool, which has subsided. The patient is currently being treated with cefepime for Pseudomon as and also he is getting vancomycin oral for C. diff colitis. The patient is feeling slightly cooper r. No other concerns. Past Medical History: Includes lung cancer of the left side, long-term tobacco use, C. diff colitis, COPD, hypertension, atrial fibrillation, on anticoagulation, gout, diastolic congestive heart failur e, chronic kidney disease, stage 4, iron deficiency anemia, hypothyroidism, upper lung lobectomy, pollo endectomy, tonsillectomy. Social History: Tobacco positive. Alcohol negative. Family History: Noncontributory. Medications: Cefepime IV and vancomycin oral. See MAR for other medications. Allergies: TO PREDNISONE. Review of Systems: A 10-point review was performed. Physical Examination: General: This is a 65-year-old male, lying in bed, on oxygen 2 L nasal cannula. Vital Signs: Temperature 97.1, pulse 81, respirations 20, blood pressure 153/80. HEENT: Unremarkable. Neck: Supple. Lungs: Basal crackles. Heart: S1, S2. Regular. Abdomen: Soft, nontender. Bowel sounds present. Extremities: Trace edema. Laboratory Data: Shows WBC 8.6 down from 25,000, hemoglobin 10.3, platelets are 288. Chemistry show s sodium 135, potassium 4.7, chloride 105, bicarb 21, BUN 88, creatinine 2.99, glucose is 120, albumi n is 1.7. Micro data; Pseudomonas in sputum, sensitive to cefepime and Levaquin. Assessment And Plan: We will recommend to continue cefepime for now as the patient has atrial fibril lation problem, total of 10 days. Continue vancomycin and supportive care. We will follow the patie nt as needed. ZAC/MODFitz Voice ID: [id number] Report ID: [id number]
[2020-10-24] MEDS: ATORVASTATIN 20 MG TAB PO SCH (21:04)
[2020-10-24] MEDS: ENSURE HIGH PROTEIN 237 ML CAN PO SCH (21:06)
[2020-10-24] MEDS ORDERED: FAMOTIDINE 20 MG/2 ML VIAL IV ONE (23:00)
[2020-10-25] MEDS: VANCOMYCIN ORAL SOLN 250 MG/5 ML OSYR PO SCH ×3 (00:25→16:26)
[2020-10-25] MEDS: LORAZEPAM 0.5 MG TABLET PO PRN (00:25)
[2020-10-25] MEDS: dexAMETHasone 10 MG/ML VIAL IV SCH ×2 (00:25→10:00)
[2020-10-25] MEDS: IPRATROPIUM BROM 0.5MG/2.5ML NEB SCH ×4 (02:00→20:00)
[2020-10-25] MEDS: LEVOTHYROXINE SOD 0.1 MG TAB PO SCH (05:52)
[2020-10-25 06:06] LABS: Absolute Lymphocytes (CBC) 0.2 K/uL (0.7-4.9); Basophils % 0.1 % (0-1.3); Lymphocytes % 1.9 % (15.3-44.8); MPV 7.8 fL (7.6-11.3); RBC Red Blood Cell Count 3.91 M/uL (4.33-5.43)
[2020-10-25 06:19] LABS: Magnesium 3.3 mg/dL (1.8-2.4); Potassium 5.2 mmol/L (3.5-5.1)
[2020-10-25 08:58] LABS: Blood Morphology Comment NOT SEEN (NOT SEEN); Platelet Estimate ADEQ
[2020-10-25] MEDS: CALCIUM CARBONATE CHEW 500MG TAB PO PRN ×2 (09:58→18:08)
[2020-10-25] MEDS: APIXABAN 2.5 MG TABLET PO SCH ×2 (09:58→21:40)
[2020-10-25] MEDS: CALCIUM CARBONATE 500 MG TAB PO SCH (09:58)
[2020-10-25] MEDS: SODIUM BICARB 325 MG TAB PO SCH ×2 (09:59→21:40)
[2020-10-25] MEDS: FAMOTIDINE 20 MG TAB PO SCH (09:59)
[2020-10-25] MEDS: FERROUS SULFATE 325 MG TAB PO SCH (10:00)
[2020-10-25] MEDS: ASPIRIN 81 MG CHEWABLE TABLET PO SCH (10:00)
[2020-10-25] MEDS: METOPROLOL XL 50 MG TAB PO SCH ×2 (10:00→21:40)
[2020-10-25] MEDS: FOLIC ACID 1 MG TABLET PO SCH (10:00)
[2020-10-25] MEDS: NA CHLORIDE 0.9% 1,000 ML IV SCH ×2 (10:01→11:39)
[2020-10-25] MEDS: ENSURE HIGH PROTEIN 237 ML CAN PO SCH ×2 (10:05→21:41)
--- NOTE | 2020-10-25 11:50 | P.PN ---
Subjective Date of Service: 10/25/20 Chief Complaint: SOB , diarrhea Subjective A 64 Y/o man with PMHx of CKD IIIb/IV baseline Cr 2.2-2.4 , COPD, CHF on lasix and aldacotne , HTN , Afib and HX of remote Lunf Ca Pt presented with SOB an diarrhea cr was 3.5, and improved to 2.9 on IVF Today no change in clinical status Bun and cr trending up, will reduce steroids will increase IVF Physical exam general: AAOX3, NAD , Neck; Supple, No elevated JVD hear: RRR, normal S1,2 no murmur or rub Chest: decreased air entry no wheezes Abdomen: Soft , Nt Extremities trace edema A/P SHARITA oc CKD IIIb/IV unclear etiology , possibly dehydration Cr baseline 2.2-2.4 , will order renal US cont IVF , will increase rate off PPI no indication for renal replacement therapy at this time C.diff WBC normalized pt with recurrent episodes of C.diff, might benefit from fecal transplant anemia of chronic disease Cont Po iron colonoscopy as an OP , after diarrhea resolves COPD cont inhalers and steroids pulmonary on board HX of CHF cont to hold diuretics pseudomonas pneumonia plan for cefepime complex renal cysts W/U as an OP Physical Examination - Vital Signs Temperature: 97.1 F Blood Pressure: 158/92 Pulse: 82 Respirations: 20 Pulse Ox (%): 98 - Studies Microbiology Data (last 24 hrs): 10/21/20 20:45 Stool Culture & Sensitivity - Final Assessment And Plan Physician Review: Patient Assessed, Agree with Above Assessment and Plan
[2020-10-25] MEDS: CEFEPIME/SWI 1gm 10 ML IV SCH (13:34)
[2020-10-25] MEDS: ONDANSETRON 4 MG/2 ML VIAL IV PRN (13:39)
--- NOTE | 2020-10-25 13:52 | PN ---
Subjective: The patient continued to have loose motion. Denies any other problems. Objective: Vital Signs: Temperature 97, pulse 82, respirations 20, blood pressure 158/92. Lungs: Basal crackles. Heart: S1, S2. Regular. Abdomen: Soft, nontender. Bowel sounds present. Extremities: Trace edema. Laboratory Data: Shows WBC is 8.3, hemoglobin is 11, platelets are 325. Chemistry shows sodium 135, potassium 5.2, chloride 106, bicarb 20, BUN 108, creatinine 3.2, glucose is 117. Assessment And Plan: The patient continued to have loose motion, Clostridium difficile positive, pne umonitis, chronic obstructive pulmonary disease exacerbation. Continue cefepime and vancomycin. Pro gnosis is guarded. Renal insufficiency, we will follow the patient as needed. NF/MODL Voice ID: [id number] Report ID: [id number]
--- NOTE | 2020-10-25 14:40 | P.PN ---
Subjective Date of Service: 10/25/20 Chief Complaint: SOB , diarrhea Subjective: Improving (Overall feeling better, abdominal discomfort improved, bowel movements becoming less frequent, but still loose. With some indigestion this morning) Review of Systems 10-point ROS is otherwise unremarkable Physical Examination - Vital Signs Temperature: 97.1 F Blood Pressure: 146/80 Pulse: 98 Respirations: 20 Pulse Ox (%): 100 - Physical Exam General: Alert, In no apparent distress, Oriented x3 HEENT: Sclerae nonicteric Respiratory: Clear to auscultation bilaterally Cardiovascular: Regular rate/rhythm Gastrointestinal: Soft and benign, No tenderness Musculoskeletal: No tenderness Integumentary: No rashes Neurological: Normal speech, Normal affect Assessment & Plan Physician Review Additional Text: Diarrhea secondary to recurrent C.diff colitis Pneumonia Acute on chronic diastolic heart failure SHARITA on CKD3 Generalized abdominal pain Chronic Atrial fibrillation Moderate malnutrition Hyponatremia C. diff positive, hypoalbuminema secondary to poor PO intake / malabsorption Continue PO Vanc, leukocytosis resolved Was on rocephin for possible pneumonia, sputum grew pseudomonas, will avoid fluoroquinolones given afib, continue cefepime ID consulted, agrees with cefepime and avoidance of fluoroquinolone continue Nutritional supplementation A KI initially improved with IV fluids, slightly worsened today nephrology fol lowing Cardiology consulted for afib, continue current regimen. dc'd plavix per cardiology recommendations Continue Eliquis for now and monitor for active bleeding. Colonoscopy as an outpatient after colitis has been adequately treated. dispo: anticipate dc home tomorrow Social work consulted for home health, will need cefepime for total of 10 days PICC line to be placed this evening Time Spent Managing Pts Care (In Minutes): 35
--- NOTE | 2020-10-25 20:51 | RAD REPORT ---
EXAM DESCRIPTION: RAD - Chest Single View - 10/25/2020 7:30 pm CLINICAL HISTORY: Device placement PICC line placement IMPRESSION: PICC line with its tip at the junction of the superior vena cava and right atrium
--- NOTE | 2020-10-25 20:54 | RAD REPORT ---
EXAM DESCRIPTION: US - Renal Ultrasound-Complete - 10/25/2020 8:20 pm CLINICAL HISTORY: Acute renal insufficiency COMPARISON: August 2020 FINDINGS: The right kidney measures 9 cm with an increased echotexture. The left kidney measures 10 cm with an increased echotexture. . Left renal cysts. Largest measures 4 centimeters. Hydronephrosis is not seen. The bladder is decompressed and poorly evaluated. Small amount of ascites IMPRESSION: Increased renal echotexture consistent with parenchymal disease
[2020-10-25] MEDS: dexAMETHasone 4 MG/ML VIAL IV SCH (21:40)
[2020-10-25] MEDS: ATORVASTATIN 20 MG TAB PO SCH (21:41)
[2020-10-25] MEDS: MORPHINE 2 MG/ML SYR IV PRN (21:59)
[2020-10-25] MEDS ORDERED: FAMOTIDINE 20 MG/2 ML VIAL IV ONE (22:43)
[2020-10-26] MEDS: VANCOMYCIN ORAL SOLN 250 MG/5 ML OSYR PO SCH ×3 (00:17→16:31)
[2020-10-26] MEDS: CALCIUM CARBONATE CHEW 500MG TAB PO PRN ×2 (00:20→12:11)
[2020-10-26] MEDS: NA CHLORIDE 0.9% 1,000 ML IV SCH (00:20)
[2020-10-26] MEDS: LORAZEPAM 0.5 MG TABLET PO PRN ×2 (00:21→00:27)
[2020-10-26] MEDS: IPRATROPIUM BROM 0.5MG/2.5ML NEB SCH ×4 (01:37→20:00)
[2020-10-26] MEDS: LEVOTHYROXINE SOD 0.1 MG TAB PO SCH (05:53)
[2020-10-26 06:17] LABS: Absolute Lymphocytes (CBC) 0.1 K/uL (0.7-4.9); Basophils % 0.1 % (0-1.3); Hematocrit 32.7 % (39.6-49.0); Lymphocytes % 1.3 % (15.3-44.8); RBC Red Blood Cell Count 3.84 M/uL (4.33-5.43)
[2020-10-26 06:32] LABS: Magnesium 3.1 mg/dL (1.8-2.4); Potassium 5.3 mmol/L (3.5-5.1)
--- NOTE | 2020-10-26 08:22 | RAD REPORT ---
EXAM DESCRIPTION: Dorothy Single View10/26/2020 8:14 am CLINICAL HISTORY: COPD COMPARISON: October 25 FINDINGS: Right lung is hyperaerated. Left lung volume loss. PICC line in place The lungs appear clear of acute infiltrate. The heart is normal size IMPRESSION: No acute abnormalities displayed
[2020-10-26] MEDS: APIXABAN 2.5 MG TABLET PO SCH ×2 (09:28→20:53)
[2020-10-26] MEDS: CALCIUM CARBONATE 500 MG TAB PO SCH (09:28)
[2020-10-26] MEDS: SODIUM BICARB 325 MG TAB PO SCH ×3 (09:29→20:53)
[2020-10-26] MEDS: METOPROLOL XL 50 MG TAB PO SCH ×2 (09:29→20:53)
[2020-10-26] MEDS: FERROUS SULFATE 325 MG TAB PO SCH (09:29)
[2020-10-26] MEDS: FAMOTIDINE 20 MG TAB PO SCH (09:29)
[2020-10-26] MEDS: LACTOBACILLUS/ACIDOPHILUS TAB PO SCH ×2 (09:29→20:53)
[2020-10-26] MEDS: FOLIC ACID 1 MG TABLET PO SCH (09:29)
[2020-10-26] MEDS: ASPIRIN 81 MG CHEWABLE TABLET PO SCH (09:29)
[2020-10-26] MEDS: dexAMETHasone 4 MG/ML VIAL IV SCH (09:30)
[2020-10-26] MEDS: ENSURE HIGH PROTEIN 237 ML CAN PO SCH ×2 (09:30→20:54)
--- NOTE | 2020-10-26 10:48 | P.PN ---
Subjective Date of Service: 10/26/20 Primary Care Provider: Dr. Wilkins Chief Complaint: SOB , diarrhea Subjective: Improving (Still some fatigue. Diarrhea improved.) Physical Examination - Vital Signs Temperature: 97.2 F Blood Pressure: 154/80 Pulse: 76 Respirations: 14 Pulse Ox (%): 97 - Physical Exam General: Alert, In no apparent distress, Cooperative HEENT: Atraumatic Neck: Supple Respiratory: Other (Patient on nasal cannula) Cardiovascular: Irregular heart rate/rhythm (AFib rate controlled) Gastrointestinal: Normal bowel sounds, No tenderness, No masses, No rebound, No guarding Neurological: Normal speech, Normal strength at 5/5 x4 extr, Normal tone, Normal affect - Studies Medications List Reviewed: Yes Assessment & Plan Discharge Plan: Home Plan to discharge in: 24 Hours Physician Review Additional Text: Impression: Diarrhea, abdominal pain secondary to recurrent C.diff colitis Pneumonia complicated with COPD exacerbation on chronic steroids and oxygen, sputum culture positive for Pseudomonas Dyspnea secondary to Acute on chronic diastolic heart failure Acute on chronic renal disease stage III with hyperkalemia Chronic Atrial fibrillation on chronic anti coagulation therapy with CAD Moderate protein malnutrition Anemia of chronic disease Hypothyroidism Hypertension Plan: Diarrhea, abdominal pain secondary to recurrent C.diff colitis: Diarrhea improved. Pain well controlled. Patient will continue with oral vancomycin. Patient needs follow up with GI as an outpatient. Arranging for IV antibiotic therapy for his pneumonia and positive sputum culture. Will need to make sure that insurance will cover this. Will discuss further with cardiology, nephrology. Possible discharge tomorrow. Pneumonia complicated with COPD exacerbation on chronic steroids and oxygen, sputum culture positive for Pseudomonas: Will discuss with infectious disease. Patient remains on cefepime. Patient needs 10 more days of IV medication. This needs to be arranged as an outpatient. PICC line in place. Dyspnea secondary to Acute on chronic diastolic heart failure: Will restart Lasix. Hold IV fluids. Acute on chronic renal disease stage III with hyperkalemia: Restart Lasix. Hold IV fluids. Will discuss further with nephrology. Chronic Atrial fibrillation on chronic anti coagulation therapy with CAD: Continue Eliquis. Patient on beta-hannah therapy. Cardiology recommended to discontinue Plavix. Moderate protein malnutrition: Continue with dietary recommendations. Will add lactobacillus. Anemia of chronic disease: Continue with supplementation. Hypothyroidism: Continue medication. Hypertension: Continue medication. Time Spent Managing Pts Care (In Minutes): 55
[2020-10-26] MEDS: FUROSEMIDE 40 MG TABLET PO SCH (11:55)
[2020-10-26] MEDS: CEFEPIME/SWI 1gm 10 ML IV SCH (11:56)
[2020-10-26] MEDS: ATORVASTATIN 20 MG TAB PO SCH (20:53)
[2020-10-26] MEDS: MORPHINE 2 MG/ML SYR IV PRN (21:00)
[2020-10-27] MEDS: VANCOMYCIN ORAL SOLN 250 MG/5 ML OSYR PO SCH ×3 (00:17→16:52)
[2020-10-27] MEDS: IPRATROPIUM BROM 0.5MG/2.5ML NEB SCH ×4 (01:56→21:15)
[2020-10-27] MEDS: LEVOTHYROXINE SOD 0.1 MG TAB PO SCH (05:25)
[2020-10-27 08:47] LABS: Potassium 4.7 mmol/L (3.5-5.1)
[2020-10-27] MEDS ORDERED: VILANTER IH SCH (09:00)
[2020-10-27] MEDS ORDERED: UMECLIDIN IH SCH (09:00)
[2020-10-27] MEDS ORDERED: FLUTICASONE IH SCH (09:00)
[2020-10-27] MEDS: LACTOBACILLUS/ACIDOPHILUS TAB PO SCH ×2 (09:03→20:51)
[2020-10-27] MEDS: CALCIUM CARBONATE 500 MG TAB PO SCH (09:03)
[2020-10-27] MEDS: APIXABAN 2.5 MG TABLET PO SCH ×2 (09:03→20:50)
[2020-10-27] MEDS: FOLIC ACID 1 MG TABLET PO SCH (09:04)
[2020-10-27] MEDS: FERROUS SULFATE 325 MG TAB PO SCH (09:04)
[2020-10-27] MEDS: FAMOTIDINE 20 MG TAB PO SCH (09:04)
[2020-10-27] MEDS: ASPIRIN 81 MG CHEWABLE TABLET PO SCH (09:04)
[2020-10-27] MEDS: SODIUM BICARB 325 MG TAB PO SCH ×3 (09:04→22:16)
[2020-10-27] MEDS: FUROSEMIDE 40 MG TABLET PO SCH (09:04)
[2020-10-27] MEDS: METOPROLOL XL 50 MG TAB PO SCH ×2 (09:05→20:51)
--- NOTE | 2020-10-27 09:23 | P.PN ---
Subjective Date of Service: 10/27/20 Primary Care Provider: Dr. Wilkins Chief Complaint: SOB , diarrhea Subjective: Other (Patient reports some wheezing. Diarrhea still noted. Slight improvement.) Physical Examination - Vital Signs Temperature: 97.9 F Blood Pressure: 143/80 Pulse: 88 Respirations: 18 Pulse Ox (%): 98 - Physical Exam General: Alert, In no apparent distress, Oriented x3, Cooperative HEENT: Atraumatic Neck: Supple Respiratory: Expiratory wheezes Cardiovascular: Irregular heart rate/rhythm (AFib rate controlled) Gastrointestinal: No masses, No rebound, No guarding Integumentary: Tenderness/swelling (Edema to the lower extremities bilateral) Neurological: Normal speech, Normal strength at 5/5 x4 extr, Normal tone, Normal affect - Studies Microbiology Data (last 24 hrs): 10/21/20 22:15 Blood - Blood Aerobic Blood Culture - Final No growth in 5 days. 10/21/20 22:15 Blood - Blood Anaerobic Blood Culture - Final No growth in 5 days. 10/21/20 22:00 Blood - Blood Aerobic Blood Culture - Final No growth in 5 days. 10/21/20 22:00 Blood - Blood Anaerobic Blood Culture - Final No growth in 5 days. Medications List Reviewed: Yes Assessment & Plan Discharge Plan: Home Plan to discharge in: 24 Hours Physician Review Additional Text: Impression: Diarrhea, abdominal pain secondary to recurrent C.diff colitis Pneumonia complicated with COPD exacerbation on chronic steroids and oxygen, sputum culture positive for Pseudomonas Dyspnea secondary to Acute on chronic diastolic heart failure Acute on chronic renal disease stage III with hyperkalemia Chronic Atrial fibrillation on chronic anti coagulation therapy with CAD Moderate protein malnutrition Anemia of chronic disease Hypothyroidism Hypertension Plan: Diarrhea, abdominal pain secondary to recurrent C.diff colitis: Diarrhea still present but improved. Continue with oral vancomycin. Patient will need GI follow up as an outpatient. Arrangements for IV antibiotic therapy due to positive Pseudomonas in the sputum being arranged. Patient will need 9 more days of IV medication. Renal function slight improvement noted. IV fluids Dc D yesterday. Lasix was restarted. Will discuss with nephrology about possible discharge in the next 24-48 hr. I will turn the service over to the hospitalist team tomorrow. I will go plan of care with him. Pneumonia complicated with COPD exacerbation on chronic steroids and oxygen, sputum culture positive for Pseudomonas: Patient remains on cefepime. Patient needs 9 more days of IV medication. This needs to be arranged as an outpatient. Will discuss with social insurance adviser to see if this has been arranged. Will start Brovana for COPD. IV steroid changed to oral. PICC line in place. Dyspnea secondary to Acute on chronic diastolic heart failure: Lasix restarted.. Acute on chronic renal disease stage III with hyperkalemia: Lasix was restarted. IV fluids discontinued. Renal function so slight improvement. Will discuss with nephrology. Chronic Atrial fibrillation on chronic anti coagulation therapy with CAD: Continue Eliquis. Patient on beta-hannah therapy. Cardiology recommended to discontinue Plavix. Moderate protein malnutrition: Continue with dietary recommendations. Continue lactobacillus. Anemia of chronic disease: Continue with supplementation. Hypothyroidism: Continue medication. Hypertension: Continue medication. Time Spent Managing Pts Care (In Minutes): 55
[2020-10-27] MEDS: dexAMETHasone 4 MG TAB PO SCH (09:53)
[2020-10-27] MEDS: ENSURE HIGH PROTEIN 237 ML CAN PO SCH ×2 (09:53→20:52)
--- NOTE | 2020-10-27 11:06 | P.PN ---
Subjective Date of Service: 10/27/20 Primary Care Provider: Dr. Wilkins Chief Complaint: SOB , diarrhea Subjective A 64 Y/o man with PMHx of CKD IIIb/IV baseline Cr 2.2-2.4 , COPD, CHF on lasix and aldacotne , HTN , Afib and HX of remote Lunf Ca Pt presented with SOB an diarrhea cr was 3.5, and improved to 2.9 on IVF Today still have diarrhea bun and Cr stable will cont to monitor will consider IV lasix if no improvement in edema Physical exam general: AAOX3, NAD , Neck; Supple, No elevated JVD hear: RRR, normal S1,2 no murmur or rub Chest: decreased air entry , audible wheezes Abdomen: Soft , Nt Extremities +1 edema A/P SHARITA oc CKD IIIb/IV unclear etiology , possibly ATN Cr baseline 2.2-2.4 , US : no hydro Off IVF , lasix restarted off PPI no indication for renal replacement therapy at this time C.diff WBC normalized pt with recurrent episodes of C.diff, might benefit from fecal transplant anemia of chronic disease Cont Po iron colonoscopy as an OP , after diarrhea resolves COPD cont inhalers and steroids pulmonary on board HX of CHF cont to hold diuretics pseudonymous pneumonia plan for cefepime complex renal cysts W/U as an OP Physical Examination - Vital Signs Temperature: 97.9 F Blood Pressure: 143/80 Pulse: 88 Respirations: 18 Pulse Ox (%): 98 - Studies Microbiology Data (last 24 hrs): 10/21/20 22:15 Blood - Blood Aerobic Blood Culture - Final No growth in 5 days. 10/21/20 22:15 Blood - Blood Anaerobic Blood Culture - Final No growth in 5 days. 10/21/20 22:00 Blood - Blood Aerobic Blood Culture - Final No growth in 5 days. 10/21/20 22:00 Blood - Blood Anaerobic Blood Culture - Final No growth in 5 days. Medications List Reviewed: Yes Assessment And Plan Physician Review: Patient Assessed, Agree with Above Assessment and Plan
[2020-10-27] MEDS: CEFEPIME/SWI 1gm 10 ML IV SCH (12:13)
[2020-10-27] MEDS ORDERED: METOPROLOL TARTRATE 5 MG/5 ML INJ IV STA ×2 (18:25)
[2020-10-27] MEDS ORDERED: METOPROLOL TARTRATE 5 MG/5 ML INJ IV ONE (18:47)
[2020-10-27] MEDS: ATORVASTATIN 20 MG TAB PO SCH (20:51)
[2020-10-27] MEDS: CALCIUM CARBONATE CHEW 500MG TAB PO PRN (20:57)
[2020-10-27] MEDS: GABAPENTIN 300 MG CAP PO PRN (20:57)
[2020-10-27] MEDS: ARFORMOTEROL TARTRATE 15 MCG/2 ML VIAL.NEB NEB SCH (21:15)
[2020-10-28] MEDS: VANCOMYCIN ORAL SOLN 250 MG/5 ML OSYR PO SCH ×3 (01:00→16:39)
[2020-10-28] MEDS: IPRATROPIUM BROM 0.5MG/2.5ML NEB SCH ×4 (01:30→20:00)
[2020-10-28] MEDS: LEVOTHYROXINE SOD 0.1 MG TAB PO SCH (05:49)
[2020-10-28 07:49] LABS: Magnesium 2.9 mg/dL (1.8-2.4); Potassium 3.9 mmol/L (3.5-5.1)
[2020-10-28] MEDS: CALCIUM CARBONATE 500 MG TAB PO SCH (09:28)
[2020-10-28] MEDS: dexAMETHasone 4 MG TAB PO SCH (09:28)
[2020-10-28] MEDS: FOLIC ACID 1 MG TABLET PO SCH (09:28)
[2020-10-28] MEDS: FAMOTIDINE 20 MG TAB PO SCH (09:28)
[2020-10-28] MEDS: GABAPENTIN 300 MG CAP PO PRN ×2 (09:28→20:26)
[2020-10-28] MEDS: ENSURE HIGH PROTEIN 237 ML CAN PO SCH ×2 (09:28→20:18)
[2020-10-28] MEDS: SODIUM BICARB 325 MG TAB PO SCH ×3 (09:29→20:18)
[2020-10-28] MEDS: APIXABAN 2.5 MG TABLET PO SCH ×2 (09:29→20:18)
[2020-10-28] MEDS: METOPROLOL XL 50 MG TAB PO SCH (09:29)
[2020-10-28] MEDS: FERROUS SULFATE 325 MG TAB PO SCH (09:29)
[2020-10-28] MEDS: FUROSEMIDE 40 MG TABLET PO SCH (09:29)
[2020-10-28] MEDS: CALCIUM CARBONATE CHEW 500MG TAB PO PRN ×2 (09:30→20:27)
[2020-10-28] MEDS: LACTOBACILLUS/ACIDOPHILUS TAB PO SCH ×2 (09:30→20:18)
[2020-10-28] MEDS: ASPIRIN 81 MG CHEWABLE TABLET PO SCH (09:30)
[2020-10-28] MEDS: ARFORMOTEROL TARTRATE 15 MCG/2 ML VIAL.NEB NEB SCH ×2 (09:55→20:00)
[2020-10-28] MEDS: ALBUTEROL 2.5 MG/3 ML NEB SOL NEB PRN ×2 (09:55→13:40)
--- NOTE | 2020-10-28 10:42 | P.PN ---
Subjective Date of Service: 10/28/20 Primary Care Provider: Dr. Wilkins Chief Complaint: SOB , diarrhea Subjective: Improving (feeling better, breathing better, having 2-3 soft, more formed BMs /day now. continues with indigestion (chronic) which improves with TUMS. overnight was noted to go into Afib to 150-160s, back to 80s after IV lopressor x2) Review of Systems 10-point ROS is otherwise unremarkable Physical Examination - Vital Signs Temperature: 97.9 F Blood Pressure: 150/79 Pulse: 83 Respirations: 18 Pulse Ox (%): 100 - Physical Exam General: Alert, In no apparent distress HEENT: Sclerae nonicteric Respiratory: Expiratory wheezes (non-labored) Cardiovascular: Irregular heart rate/rhythm Gastrointestinal: Soft and benign, No tenderness Musculoskeletal: No tenderness Integumentary: No significant lesion Neurological: Normal speech, Normal affect - Studies Medications List Reviewed: Yes Assessment & Plan Physician Review Additional Text: Impression: Diarrhea, abdominal pain secondary to recurrent C.diff colitis Pneumonia complicated with COPD exacerbation on chronic steroids and oxygen, sputum culture positive for Pseudomonas Dyspnea secondary to Acute on chronic diastolic heart failure Acute on chronic renal disease stage III with hyperkalemia Chronic Atrial fibrillation on chronic anti coagulation therapy with CAD Moderate protein malnutrition Anemia of chronic disease Hypothyroidism Hypertension Plan: Diarrhea, abdominal pain secondary to recurrent C.diff colitis: diarrhea improved - 2-3 BM/day, more formed continue PO Vanc, will need GI f/u as outpatient renal function improving Pneumonia complicated with COPD exacerbation on chronic steroids and oxygen, sputum culture positive for Pseudomonas: continue cefepime, will need ~8 more days of IV. PICC lince placed SW/CM consulted for assistance in arranging IV medications as outpatient Dyspnea secondary to Acute on chronic diastolic heart failure: Lasix restarted per nephrology Acute on chronic renal disease stage III with hyperkalemia: Lasix restarted a few days ago, IVF were dc'd as well. Renal function improving. nephrology following may need dialysis if doesn't continue to improve Chronic Paroxysmal Atrial fibrillation on chronic anti coagulation therapy with CAD: Continue Eliquis. continues to have occasional afib with RVR to 160s, increase metoprolol from 50 to 100 BID Cardiology recommended to discontinue Plavix. Moderate protein malnutrition: Continue with dietary recommendations. Continue lactobacillus. Anemia of chronic disease: Continue with supplementation. Hypothyroidism: Continue medication. Hypertension: Continue medication. VTE: Eliquis Dispo: anticipate dc home in ~48hrs, pending home abx set up, improvement of renal function Time Spent Managing Pts Care (In Minutes): 35
[2020-10-28] MEDS: CEFEPIME/SWI 1gm 10 ML IV SCH (12:19)
--- NOTE | 2020-10-28 14:45 | P.PN ---
Subjective Date of Service: 10/28/20 Primary Care Provider: Dr. Wilkins Chief Complaint: SOB , diarrhea Subjective A 64 Y/o man with PMHx of CKD IIIb/IV baseline Cr 2.2-2.4 , COPD, CHF on lasix and aldacotne , HTN , Afib and HX of remote Lunf Ca Pt presented with SOB an diarrhea cr was 3.5, and improved to 2.9 on IVF Today still have diarrhea Cr slightly improved will cont to monitor cont lasix at current dose Physical exam general: AAOX3, NAD , Neck; Supple, No elevated JVD hear: RRR, normal S1,2 no murmur or rub Chest: decreased air entry , audible wheezes Abdomen: Soft , Nt Extremities +1 edema A/P SHARITA oc CKD IIIb/IV unclear etiology , possibly ATN Cr baseline 2.2-2.4 , US : no hydro Off IVF , lasix restarted off PPI no indication for renal replacement therapy at this time C.diff WBC normalized cont to have frequent BM ID on board anemia of chronic disease Cont Po iron colonoscopy as an OP , after diarrhea resolves COPD cont inhalers and steroids pulmonary on board HX of CHF cont to hold diuretics pseudonymous pneumonia plan for cefepime complex renal cysts W/U as an OP Physical Examination - Vital Signs Temperature: 97.3 F Blood Pressure: 138/67 Pulse: 82 Respirations: 19 Pulse Ox (%): 99 - Studies Medications List Reviewed: Yes Assessment And Plan Physician Review: Patient Assessed, Agree with Above Assessment and Plan
[2020-10-28] MEDS: METOPROLOL XL 100 MG TAB PO SCH (17:12)
[2020-10-28] MEDS: ATORVASTATIN 20 MG TAB PO SCH (20:18)
[2020-10-28] MEDS: MORPHINE 2 MG/ML SYR IV PRN (23:02)
[2020-10-29] MEDS: IPRATROPIUM BROM 0.5MG/2.5ML NEB SCH ×4 (02:00→19:45)
[2020-10-29] MEDS: METOPROLOL XL 100 MG TAB PO SCH ×2 (05:14→18:02)
[2020-10-29] MEDS: LEVOTHYROXINE SOD 0.1 MG TAB PO SCH (05:14)
[2020-10-29] MEDS: VANCOMYCIN ORAL SOLN 250 MG/5 ML OSYR PO SCH ×4 (05:14→18:01)
[2020-10-29 05:50] LABS: Magnesium 2.6 mg/dL (1.8-2.4); Potassium 3.6 mmol/L (3.5-5.1)
[2020-10-29] MEDS: ARFORMOTEROL TARTRATE 15 MCG/2 ML VIAL.NEB NEB SCH ×2 (08:00→19:45)
[2020-10-29] MEDS: ENSURE HIGH PROTEIN 237 ML CAN PO SCH ×2 (09:00→20:26)
[2020-10-29] MEDS: SODIUM BICARB 325 MG TAB PO SCH ×3 (09:01→20:26)
[2020-10-29] MEDS: APIXABAN 2.5 MG TABLET PO SCH ×2 (09:01→20:26)
[2020-10-29] MEDS: FAMOTIDINE 20 MG TAB PO SCH (09:01)
[2020-10-29] MEDS: LACTOBACILLUS/ACIDOPHILUS TAB PO SCH ×2 (09:01→20:26)
[2020-10-29] MEDS: CALCIUM CARBONATE 500 MG TAB PO SCH (09:02)
[2020-10-29] MEDS: FOLIC ACID 1 MG TABLET PO SCH (09:02)
[2020-10-29] MEDS: dexAMETHasone 4 MG TAB PO SCH (09:02)
[2020-10-29] MEDS: FERROUS SULFATE 325 MG TAB PO SCH (09:02)
[2020-10-29] MEDS: ASPIRIN 81 MG CHEWABLE TABLET PO SCH (09:03)
[2020-10-29] MEDS: FUROSEMIDE 40 MG TABLET PO SCH (09:03)
--- NOTE | 2020-10-29 11:27 | P.PN ---
Subjective Date of Service: 10/29/20 Primary Care Provider: Dr. Wilkins Chief Complaint: SOB , diarrhea Subjective A 64 Y/o man with PMHx of CKD IIIb/IV baseline Cr 2.2-2.4 , COPD, CHF on lasix and aldacotne , HTN , Afib and HX of remote Lunf Ca Pt presented with SOB an diarrhea cr was 3.5, and improved to 2.9 on IVF Today still have diarrhea Cr improved Pt to resume Lasix and Aldactone on discharge Physical exam general: AAOX3, NAD , Neck; Supple, No elevated JVD hear: RRR, normal S1,2 no murmur or rub Chest: decreased air entry , audible wheezes Abdomen: Soft , Nt Extremities +1 edema A/P SHARITA oc CKD IIIb/IV possibly ATN Cr baseline 2.2-2.4 , US : no hydro Off IVF , lasix restarted off PPI no indication for renal replacement therapy at this time C.diff WBC normalized cont to have frequent BM ID on board anemia of chronic disease Cont Po iron colonoscopy as an OP , after diarrhea resolves COPD cont inhalers and steroids pulmonary on board HX of CHF cont to hold diuretics pseudonymous pneumonia plan for cefepime complex renal cysts W/U as an OP Total time spent 30min Physical Examination - Vital Signs Temperature: 97.5 F Blood Pressure: 148/70 Pulse: 92 Respirations: 20 Pulse Ox (%): 87 - Studies Medications List Reviewed: Yes Assessment And Plan Physician Review: Patient Assessed, Agree with Above Assessment and Plan
[2020-10-29] MEDS: CEFEPIME/SWI 1gm 10 ML IV SCH (11:45)
--- NOTE | 2020-10-29 12:40 | P.PN ---
Subjective Date of Service: 10/29/20 Primary Care Provider: Dr. Wilkins Chief Complaint: SOB , diarrhea Subjective: No new changes (feeling ok, had several BMs yesterday, reports they are soft but formed, not watery. tolerating PO. no nausea/vomiting with some shortness of breath / wheeze this morning. no abdominal pain) Review of Systems 10-point ROS is otherwise unremarkable Physical Examination - Vital Signs Temperature: 97.5 F Blood Pressure: 148/70 Pulse: 92 Respirations: 20 Pulse Ox (%): 87 - Physical Exam General: Alert, In no apparent distress HEENT: Sclerae nonicteric Respiratory: Expiratory wheezes Cardiovascular: Irregular heart rate/rhythm Gastrointestinal: Soft and benign, Non-distended, No tenderness Musculoskeletal: No tenderness Integumentary: No significant lesion, Other (dry skin between bilateral toes) Neurological: Normal speech, Normal affect - Studies Medications List Reviewed: Yes Assessment & Plan Physician Review Additional Text: Impression: Diarrhea, abdominal pain secondary to recurrent C.diff colitis Pneumonia complicated with COPD exacerbation on chronic steroids and oxygen, sputum culture positive for Pseudomonas Dyspnea secondary to Acute on chronic diastolic heart failure Acute on chronic renal disease stage III with hyperkalemia Chronic Atrial fibrillation on chronic anti coagulation therapy with CAD Moderate protein malnutrition Anemia of chronic disease Hypothyroidism Hypertension Plan: Diarrhea, abdominal pain secondary to recurrent C.diff colitis: more BMs yesterday, but remain formed ideally <3 BM/day patient seems to be able to stay hydrated, otherwise is clinically improving PO vanc increased to q6hr from q8hr yesterday, will need prolonged 4 week taper continue PO Vanc, will need GI f/u as outpatient renal function improving will obtain KUB to ensure no bowel dilatation Pneumonia complicated with COPD exacerbation on chronic steroids and oxygen, sputum culture positive for Pseudomonas: ID consulted. continue cefepime, will need ~7 more days of IV. PICC line placed SW/CM consulted for assistance in arranging IV medications as outpatient. pulmonology following Dyspnea secondary to Acute on chronic diastolic heart failure: Lasix restarted per nephrology Acute on chronic renal disease stage III with hyperkalemia: Lasix restarted a few days ago, IVF were dc'd as well. Renal function improving. nephrology following Chronic Paroxysmal Atrial fibrillation on chronic anti coagulation therapy with CAD: Continue Eliquis. afib better controlled, increased metoprolol from 50 to 100 BID on 10/28 Cardiology recommended to discontinue Plavix. Moderate protein malnutrition: Continue with dietary recommendations. Continue lactobacillus. Anemia of chronic disease: Continue with supplementation. Hypothyroidism: Continue medication. Hypertension: Continue medication. VTE: Eliquis Dispo: anticipate dc home in ~24-48hrs, pending home abx set up, improvement of bowel movements, renal function Time Spent Managing Pts Care (In Minutes): 40
[2020-10-29] MEDS: ALBUTEROL 2.5 MG/3 ML NEB SOL NEB PRN (12:52)
--- NOTE | 2020-10-29 15:40 | RAD REPORT ---
EXAM DESCRIPTION: RAD - Abdomen 1 View (KUB) - 10/29/2020 3:29 pm CLINICAL HISTORY: c.diff, eval for dilated intestine COMPARISON: Abdomen 1 View (KUB) dated 01/06/2019; Abdomen 1 View (KUB) dated 01/06/2019; Abdomen Pelv is Wo Contrast dated 10/21/2020 FINDINGS: Bowel gas pattern is non-specific. No obstruction, free air or pneumatosis. No dilation o f the colon. Stomach is decompressed. Focal density right mid abdomen could be ingested medication bl urred by respiratory motion. Bony degenerative changes are present. Dense arterial tree calcifications are seen. IMPRESSION: No obstruction or free air. No finding to suspect complication from C difficile infectio n.
[2020-10-29] MEDS: ATORVASTATIN 20 MG TAB PO SCH (20:26)
[2020-10-29] MEDS: CALCIUM CARBONATE CHEW 500MG TAB PO PRN (20:28)
[2020-10-30] MEDS: VANCOMYCIN ORAL SOLN 250 MG/5 ML OSYR PO SCH ×4 (00:17→18:06)
[2020-10-30] MEDS: MORPHINE 2 MG/ML SYR IV PRN (00:36)
[2020-10-30] MEDS: IPRATROPIUM BROM 0.5MG/2.5ML NEB SCH ×4 (02:00→20:00)
[2020-10-30] MEDS: LEVOTHYROXINE SOD 0.1 MG TAB PO SCH (05:05)
[2020-10-30] MEDS: METOPROLOL XL 100 MG TAB PO SCH ×2 (05:05→18:06)
[2020-10-30 05:26] LABS: Absolute Lymphocytes (CBC) 0.1 K/uL (0.7-4.9); Basophils % 0.2 % (0-1.3); Lymphocytes % 1.2 % (15.3-44.8); MPV 7.8 fL (7.6-11.3); RBC Red Blood Cell Count 3.08 M/uL (4.33-5.43)
[2020-10-30 05:39] LABS: Magnesium 2.2 mg/dL (1.8-2.4); Potassium 3.3 mmol/L (3.5-5.1)
[2020-10-30 06:00] LABS: Blood Morphology Comment NOTED (NOT SEEN); Platelet Estimate ADEQ
[2020-10-30] MEDS: ARFORMOTEROL TARTRATE 15 MCG/2 ML VIAL.NEB NEB SCH ×2 (08:00→20:00)
[2020-10-30] MEDS: ENSURE HIGH PROTEIN 237 ML CAN PO SCH ×2 (09:00→21:00)
[2020-10-30] MEDS: FERROUS SULFATE 325 MG TAB PO SCH (09:55)
[2020-10-30] MEDS: SODIUM BICARB 325 MG TAB PO SCH ×3 (09:55→21:35)
[2020-10-30] MEDS: ASPIRIN 81 MG CHEWABLE TABLET PO SCH (09:56)
[2020-10-30] MEDS: dexAMETHasone 4 MG TAB PO SCH (09:56)
[2020-10-30] MEDS: APIXABAN 2.5 MG TABLET PO SCH ×2 (09:56→21:35)
[2020-10-30] MEDS: FAMOTIDINE 20 MG TAB PO SCH (09:56)
[2020-10-30] MEDS: LACTOBACILLUS/ACIDOPHILUS TAB PO SCH ×2 (09:56→21:35)
[2020-10-30] MEDS: FOLIC ACID 1 MG TABLET PO SCH (09:56)
[2020-10-30] MEDS: CALCIUM CARBONATE 500 MG TAB PO SCH (09:56)
[2020-10-30] MEDS: FUROSEMIDE 40 MG TABLET PO SCH (09:57)
[2020-10-30] MEDS: CEFEPIME/SWI 1gm 10 ML IV SCH (11:26)
--- NOTE | 2020-10-30 18:18 | P.PN ---
Subjective Date of Service: 10/30/20 Primary Care Provider: Dr. Wilkins Chief Complaint: SOB , diarrhea Subjective: Improving (feeling better, breathing slightly better, continues with 3-5 BM/day, formed, increased appetite) Review of Systems 10-point ROS is otherwise unremarkable Physical Examination - Vital Signs Temperature: 97.5 F Blood Pressure: 123/64 Pulse: 92 Respirations: 16 Pulse Ox (%): 98 - Physical Exam General: Alert, In no apparent distress HEENT: Sclerae nonicteric Respiratory: Expiratory wheezes, Other Cardiovascular: Edema, Irregular heart rate/rhythm Gastrointestinal: Soft and benign, Non-distended, No tenderness Musculoskeletal: No tenderness Neurological: Normal speech, Normal affect - Studies Medications List Reviewed: Yes Assessment & Plan Physician Review Additional Text: Impression: Diarrhea, abdominal pain secondary to recurrent C.diff colitis Pneumonia complicated with COPD exacerbation on chronic steroids and oxygen, sputum culture positive for Pseudomonas Dyspnea secondary to Acute on chronic diastolic heart failure Acute on chronic renal disease stage III with hyperkalemia Chronic Atrial fibrillation on chronic anti coagulation therapy with CAD Moderate protein malnutrition Anemia of chronic disease Hypothyroidism Hypertension Plan: Diarrhea, abdominal pain secondary to recurrent C.diff colitis: improved, formed stools, but with 3-5/day patient seems to be able to stay hydrated, doing better continue PO Vanc, will need GI f/u as outpatient, need prolonged 4 week taper renal function improving KUB without bowel dilatation to f/u with Dr. Wilkins on Pneumonia complicated with COPD exacerbation on chronic steroids and oxygen, sputum culture positive for Pseudomonas: ID consulted. continue cefepime, will need 10 days total. PICC line placed SW/ consulted for assistance in arranging IV medications as outpatient. pulmonology following Dyspnea secondary to Acute on chronic diastolic heart failure: Lasix restarted per nephrology Acute on chronic renal disease stage III with hyperkalemia: Lasix restarted a few days ago, IVF were dc'd as well. Renal function improving. nephrology following Chronic Paroxysmal Atrial fibrillation on chronic anti coagulation therapy with CAD: Continue Eliquis. afib better controlled, increased metoprolol from 50 to 100 BID on 10/28 Cardiology recommended to discontinue Plavix. Moderate protein malnutrition: Continue with dietary recommendations. Continue lactobacillus. Anemia of chronic disease: Continue with supplementation. Hypothyroidism: Continue medication. Hypertension: Continue medication. VTE: Eliquis Dispo: anticipate dc home tomorrow, pending home health set up Time Spent Managing Pts Care (In Minutes): 40
[2020-10-30] MEDS: KCL 20 MEQ/100 mL IVPB 20 MEQ/100 ML BAG IV SCH ×2 (21:34→23:17)
[2020-10-30] MEDS: ATORVASTATIN 20 MG TAB PO SCH (21:35)
[2020-10-30] MEDS: GABAPENTIN 300 MG CAP PO PRN (21:49)
--- NOTE | 2020-10-31 00:06 | PN ---
Date of Progress Note: 10/30/2020 Chief Complaint: Acute on chronic kidney injury. History Of Present Illness: The patient is a 65-year-old man with past medical history of chronic ki dney disease 3B/4, baseline creatinine level from 2.2 to 2.4, COPD, congestive heart failure, on Lasi x and Aldactone, hypertension, atrial fibrillation. Patient has history of lung cancer. Patient pre sented with diarrhea, shortness of breath. Creatinine level was 3.5, improved to 2.9 on IV fluids. Renal function is stabilizing in response to IV fluids. Patient was treated with p.o. vancomycin for C diff colitis. Review of Systems: Patient had 2 bowel movements and overall p.o. intake is improving. Patient was resumed on Lasix and Aldactone prior to discharge. Denies fever, chills. Physical Examination: Lungs: Diminished breath sounds. Heart: S1, S2. Abdomen: Soft, benign. Extremities: 1+ edema. Impression And Plan: 1.Acute on chronic kidney injury. Patient has chronic kidney disease stage 3B/4. Patient developed acute tubular necrosis and prerenal azotemia. Creatinine at baseline usually around from 2.2 to 2.4 . Renal ultrasound did not show hydronephrosis. Patient currently is on IV fluids. Lasix was resum ed. Monitor electrolytes and adjust diuretics according to fluid balance and electrolytes. 2.Clostridium difficile. Continue treatment. 3.WBC is improving. 4.Hypertension. Blood pressure controlled. Continue to monitor and adjust medication as needed. EB/MODL Voice ID: [id number] Report ID: [id number]
[2020-10-31] MEDS: VANCOMYCIN ORAL SOLN 250 MG/5 ML OSYR PO SCH ×4 (00:52→18:14)
[2020-10-31] MEDS: IPRATROPIUM BROM 0.5MG/2.5ML NEB SCH ×4 (02:15→20:00)
[2020-10-31] MEDS: METOPROLOL XL 100 MG TAB PO SCH ×2 (05:35→18:14)
[2020-10-31] MEDS: LEVOTHYROXINE SOD 0.1 MG TAB PO SCH (05:36)
[2020-10-31 06:12] LABS: Absolute Lymphocytes (CBC) 0.1 K/uL (0.7-4.9); Basophils % 0.3 % (0-1.3); Lymphocytes % 1.4 % (15.3-44.8); MPV 8.4 fL (7.6-11.3); RBC Red Blood Cell Count 2.83 M/uL (4.33-5.43)
[2020-10-31 06:27] LABS: Magnesium 2.2 mg/dL (1.8-2.4); Potassium 3.7 mmol/L (3.5-5.1)
[2020-10-31] MEDS: ARFORMOTEROL TARTRATE 15 MCG/2 ML VIAL.NEB NEB SCH ×2 (07:40→20:00)
[2020-10-31] MEDS: FUROSEMIDE 40 MG TABLET PO SCH (08:40)
[2020-10-31] MEDS: FOLIC ACID 1 MG TABLET PO SCH (08:40)
[2020-10-31] MEDS: SODIUM BICARB 325 MG TAB PO SCH (08:40)
[2020-10-31] MEDS: LACTOBACILLUS/ACIDOPHILUS TAB PO SCH ×2 (08:41→20:42)
[2020-10-31] MEDS: FAMOTIDINE 20 MG TAB PO SCH (08:41)
[2020-10-31] MEDS: CALCIUM CARBONATE 500 MG TAB PO SCH (08:41)
[2020-10-31] MEDS: FERROUS SULFATE 325 MG TAB PO SCH (08:41)
[2020-10-31] MEDS: APIXABAN 2.5 MG TABLET PO SCH ×2 (08:41→20:43)
[2020-10-31] MEDS: ASPIRIN 81 MG CHEWABLE TABLET PO SCH (08:41)
[2020-10-31] MEDS: dexAMETHasone 4 MG TAB PO SCH (08:42)
[2020-10-31] MEDS: ENSURE HIGH PROTEIN 237 ML CAN PO SCH ×2 (08:42→20:50)
[2020-10-31] MEDS ORDERED: POTASSIUM CL SA 10 MEQ TAB PO ONE (09:00)
[2020-10-31 09:35] LABS: Hematocrit 25.7 % (39.6-49.0)
[2020-10-31] MEDS: CEFEPIME/SWI 1gm 10 ML IV SCH (11:40)
--- NOTE | 2020-10-31 12:26 | P.PN ---
Subjective Date of Service: 10/31/20 Primary Care Provider: Dr. Wilkins Chief Complaint: SOB , diarrhea Subjective A 64 Y/o man with PMHx of CKD IIIb/IV baseline Cr 2.2-2.4 , COPD, CHF on lasix and aldacotne , HTN , Afib and HX of remote Lunf Ca Pt presented with SOB an diarrhea cr was 3.5, and improved to 2.9 on IVF Today still have diarrhea Cr improved will give lasix X1 to c0nt PO vanco for 6wks can be discharged from nephrology point of view Physical exam general: AAOX3, NAD , Neck; Supple, No elevated JVD hear: RRR, normal S1,2 no murmur or rub Chest: decreased air entry , audible wheezes Abdomen: Soft , Nt Extremities +1 edema A/P SHARITA oc CKD IIIb/IV possibly ATN Cr baseline 2.2-2.4 , US : no hydro Off IVF , lasix restarted off PPI no indication for renal replacement therapy at this time C.diff WBC normalized ID on board to c0nt PO vanco for 6wks anemia of chronic disease Cont Po iron colonoscopy as an OP , after diarrhea resolves COPD cont inhalers and steroids pulmonary on board HX of CHF cont to hold diuretics pseudonymous pneumonia cefepime complex renal cysts W/U as an OP Total time spent 30min Physical Examination - Vital Signs Temperature: 98 F Blood Pressure: 138/65 Pulse: 85 Respirations: 20 Pulse Ox (%): 97 - Studies Medications List Reviewed: Yes Assessment And Plan Physician Review: Patient Assessed, Agree with Above Assessment and Plan
[2020-10-31] MEDS ORDERED: FUROSEMIDE 40 MG/4 ML VIAL IV ONE (12:30)
--- NOTE | 2020-10-31 14:38 | P.PN ---
Subjective Date of Service: 10/31/20 Primary Care Provider: Dr. Wilkins Chief Complaint: SOB , diarrhea Stool frequency as reduced. Patient had 2 BM last night. He states his stool is more formed. He reports history of melena in the past. Had an EGD which did not show source of bleeding. He is on Eliquis for AFib. Physical Examination - Vital Signs Temperature: 98 F Blood Pressure: 138/65 Pulse: 85 Respirations: 20 Pulse Ox (%): 97 - Physical Exam General: Alert, In no apparent distress HEENT: Mucous membr. moist/pink Neck: Supple, JVD not distended Respiratory: Clear to auscultation bilaterally Cardiovascular: No edema, Normal S1 S2, Irregular heart rate/rhythm Gastrointestinal: Normal bowel sounds, Soft and benign, Non-distended Musculoskeletal: No swelling Integumentary: No rashes Neurological: Normal speech, Normal strength at 5/5 x4 extr - Studies Medications List Reviewed: Yes Assessment And Plan - Current Problems (Diagnosis) (1) Diarrhea Current Visit: No Status: Acute (2) Acute on chronic diastolic heart failure Current Visit: Yes Status: Acute (3) Pneumonia Current Visit: Yes Status: Acute (4) Acute worsening of stage 3 chronic kidney disease Current Visit: No Status: Acute (5) Generalized abdominal pain Current Visit: No Status: Acute (6) Atrial fibrillation Current Visit: No Status: Chronic Qualifiers: Atrial fibrillation type: chronic (7) Moderate malnutrition Current Visit: Yes Status: Acute (8) Hyponatremia Current Visit: Yes Status: Acute (9) Pseudomonas pneumonia Current Visit: Yes Status: Acute - Plan He also has hypoalbuminemia secondary to poor oral intake and probably malabsorption. Continue oral vancomycin. Discontinue IV Rocephin. Nutritional supplementation. Consult to service engineer. Hold Lasix given increase serum creatinine today. Start IV fluid-NS to treat SHARITA and hyponatremia. Monitor renal function. No active bleeding. Noted drop in hemoglobin with may be secondary to hemodilution. Hemoglobin is stable. Continue Eliquis for now and monitor for active bleeding. Colonoscopy as an outpatient after colitis has been adequately treated. Physician Review: Patient Assessed, Agree with Above Assessment and Plan Physician Review Additional Text: Impression: Diarrhea, abdominal pain secondary to recurrent C.diff colitis Pneumonia complicated with COPD exacerbation on chronic steroids and oxygen, sputum culture positive for Pseudomonas Dyspnea secondary to Acute on chronic diastolic heart failure Acute on chronic renal disease stage III with hyperkalemia Chronic Atrial fibrillation on chronic anti coagulation therapy with CAD Moderate protein malnutrition Anemia of chronic disease Hypothyroidism Hypertension Plan: Diarrhea, abdominal pain secondary to recurrent C.diff colitis: improved, formed stools, but with 3-5/day patient seems to be able to stay hydrated, doing better continue PO Vanc, will need GI f/u as outpatient, need prolonged 4 week taper F/u with Dr. Wilkins on Pneumonia complicated with COPD exacerbation on chronic steroids and oxygen, sputum culture positive for Pseudomonas: ID consulted. continue cefepime, will need 10 days total. PICC line placed SW/ assisting with [facility] for IV antibiotics. pulmonology following Dyspnea secondary to Acute on chronic diastolic heart failure: Lasix restarted per nephrology Acute on chronic renal disease stage III with hyperkalemia: Lasix restarted. Renal function improved to baseline. nephrology following Chronic Paroxysmal Atrial fibrillation on chronic anti coagulation therapy with CAD: Continue Eliquis. afib better controlled on current metoprolol dose. Cardiology recommended to discontinue Plavix. Moderate protein malnutrition: Continue with dietary recommendations. Continue lactobacillus. Anemia of chronic disease: Continue with supplementation. Hypothyroidism: Continue medication. Hypertension: Continue medication.
[2020-10-31] MEDS: CALCIUM CARBONATE CHEW 500MG TAB PO PRN (20:42)
[2020-10-31] MEDS: ATORVASTATIN 20 MG TAB PO SCH (20:42)
[2020-10-31] MEDS: GABAPENTIN 300 MG CAP PO PRN (20:43)
[2020-10-31] MEDS: LORAZEPAM 0.5 MG TABLET PO PRN (20:44)
[2020-11-01] MEDS: VANCOMYCIN ORAL SOLN 250 MG/5 ML OSYR PO SCH ×5 (00:25→23:41)
[2020-11-01] MEDS: IPRATROPIUM BROM 0.5MG/2.5ML NEB SCH ×4 (01:45→19:40)
[2020-11-01] MEDS: METOPROLOL XL 100 MG TAB PO SCH ×2 (05:59→18:00)
[2020-11-01] MEDS: ACETAMINOPHEN 500 MG TAB PO PRN (06:00)
[2020-11-01] MEDS: LEVOTHYROXINE SOD 0.1 MG TAB PO SCH (06:00)
[2020-11-01 06:35] LABS: Potassium 3.7 mmol/L (3.5-5.1)
[2020-11-01] MEDS: FAMOTIDINE 20 MG TAB PO SCH (08:50)
[2020-11-01] MEDS: FERROUS SULFATE 325 MG TAB PO SCH (08:50)
[2020-11-01] MEDS: FOLIC ACID 1 MG TABLET PO SCH (08:50)
[2020-11-01] MEDS: dexAMETHasone 4 MG TAB PO SCH (08:51)
[2020-11-01] MEDS: FUROSEMIDE 40 MG TABLET PO SCH (08:51)
[2020-11-01] MEDS: LACTOBACILLUS/ACIDOPHILUS TAB PO SCH ×2 (08:51→20:29)
[2020-11-01] MEDS: ASPIRIN 81 MG CHEWABLE TABLET PO SCH (08:51)
[2020-11-01] MEDS: APIXABAN 2.5 MG TABLET PO SCH ×2 (08:51→20:28)
[2020-11-01] MEDS: CALCIUM CARBONATE 500 MG TAB PO SCH (08:51)
[2020-11-01] MEDS: ENSURE HIGH PROTEIN 237 ML CAN PO SCH ×2 (08:52→20:40)
[2020-11-01] MEDS: ARFORMOTEROL TARTRATE 15 MCG/2 ML VIAL.NEB NEB SCH ×2 (09:17→19:40)
[2020-11-01] MEDS: CEFEPIME/SWI 1gm 10 ML IV SCH (12:08)
--- NOTE | 2020-11-01 15:27 | P.PN ---
Subjective Date of Service: 11/01/20 Primary Care Provider: Dr. Wilkins Chief Complaint: SOB , diarrhea Patient has no complain today. No major changes from yesterday. Physical Examination - Vital Signs Temperature: 97.9 F Blood Pressure: 122/57 Pulse: 86 Respirations: 20 Pulse Ox (%): 97 - Physical Exam General: Alert, In no apparent distress, Oriented x3 Respiratory: Clear to auscultation bilaterally, Normal air movement Cardiovascular: No edema, Normal S1 S2, Irregular heart rate/rhythm Gastrointestinal: Soft and benign, Non-distended, No tenderness Musculoskeletal: No swelling Neurological: Normal strength at 5/5 x4 extr - Studies Medications List Reviewed: Yes Assessment And Plan - Current Problems (Diagnosis) (1) Clostridium difficile colitis Current Visit: No Status: Acute (2) Acute on chronic diastolic heart failure Current Visit: Yes Status: Acute (3) Pneumonia Current Visit: Yes Status: Acute (4) Acute worsening of stage 3 chronic kidney disease Current Visit: No Status: Acute (5) Generalized abdominal pain Current Visit: No Status: Acute (6) Atrial fibrillation Current Visit: No Status: Chronic Qualifiers: Atrial fibrillation type: chronic (7) Moderate malnutrition Current Visit: Yes Status: Acute (8) Hyponatremia Current Visit: Yes Status: Acute (9) Pseudomonas pneumonia Current Visit: Yes Status: Acute Physician Review Additional Text: Impression: Diarrhea, abdominal pain secondary to recurrent C.diff colitis Pneumonia complicated with COPD exacerbation on chronic steroids and oxygen, sputum culture positive for Pseudomonas Dyspnea secondary to Acute on chronic diastolic heart failure Acute on chronic renal disease stage III with hyperkalemia Chronic Atrial fibrillation on chronic anti coagulation therapy with CAD Moderate protein malnutrition Anemia of chronic disease Hypothyroidism Hypertension Plan: Diarrhea, abdominal pain secondary to recurrent C.diff colitis: Improved continue PO Vanc, will need GI f/u as outpatient, need prolonged 4 week taper F/u with Dr. Wilkins. Pneumonia complicated with COPD exacerbation on chronic steroids and oxygen, sputum culture positive for Pseudomonas: ID consulted. continue cefepime, will need 10 days total. PICC line placed SW/CM assisting with [facility] for IV antibiotics. pulmonology following Dyspnea secondary to Acute on chronic diastolic heart failure: Lasix restarted per nephrology Acute on chronic renal disease stage III with hyperkalemia: Lasix restarted. Renal function improved to baseline. nephrology following Chronic Paroxysmal Atrial fibrillation on chronic anti coagulation therapy with CAD: Continue Eliquis. afib better controlled on current metoprolol dose. Cardiology recommended to discontinue Plavix. Moderate protein malnutrition: Continue with dietary recommendations. Continue lactobacillus. Anemia of chronic disease: Continue with supplementation. Hypothyroidism: Continue medication. Hypertension: Continue medication.
[2020-11-01] MEDS: CALCIUM CARBONATE CHEW 500MG TAB PO PRN (16:49)
[2020-11-01] MEDS: ONDANSETRON 4 MG/2 ML VIAL IV PRN (16:49)
[2020-11-01] MEDS: MORPHINE 2 MG/ML SYR IV PRN (16:50)
[2020-11-01] MEDS: ATORVASTATIN 20 MG TAB PO SCH (20:28)
--- NOTE | 2020-11-01 22:02 | PN ---
Date of Progress Note: 11/01/2020 Chief Complaint: Acute on chronic kidney injury. History Of Present Illness: Patient has had chronic kidney disease stage 3B/baseline creatinine leve l of 2.2 to 2.4, COPD, cardiorenal syndrome and was treated with Lasix and Aldactone. Patient came t o the hospital because of shortness of breath and diarrhea. Patient was found to have atrial fibrill ation and he has history of lung cancer. Creatinine level was elevated up to 3.5, improved with IV h ydration to 2.9. Acute kidney injury was gradually improving to baseline kidney function. Review of Systems: Denies PND or orthopnea. Physical Examination: Lungs: Diminished breath sounds at bases. Heart: S1, S2. Abdomen: Soft, benign. Extremities: 1+ edema. Impression And Plan: 1.Acute on chronic kidney injury due to acute tubular necrosis, prerenal azotemia in the setting of renal hypoperfusion. Patient was hypovolemic secondary to prolonged diarrhea. Patient improved with mild hydration. Ultrasound did not show hydronephrosis. Currently, patient is on IV Lasix, althoug h he had Lasix reviewed for leg edema. Monitor renal function. Adjust replacement with electrolytes as needed. 2.Clostridium difficile colitis. WBC is improving. Patient will continue p.o. vancomycin. 3.Chronic congestive heart failure. Diuretic will be used as needed. 4.Pseudomonas pneumonia. Cefepime was started. 5.Complex renal cyst. Patient will follow up outpatient with Urology. ABILIO/MODL Voice ID: [id number] Report ID: [id number]
[2020-11-02] MEDS: IPRATROPIUM BROM 0.5MG/2.5ML NEB SCH ×4 (03:05→20:00)
[2020-11-02] MEDS: LEVOTHYROXINE SOD 0.1 MG TAB PO SCH (05:08)
[2020-11-02] MEDS: METOPROLOL XL 100 MG TAB PO SCH ×2 (05:08→16:46)
[2020-11-02] MEDS: VANCOMYCIN ORAL SOLN 250 MG/5 ML OSYR PO SCH ×4 (05:08→23:55)
[2020-11-02 05:57] LABS: Absolute Lymphocytes (CBC) 0.2 K/uL (0.7-4.9); Basophils % 0.4 % (0-1.3); Hematocrit 22.3 % (39.6-49.0); Lymphocytes % 2.3 % (15.3-44.8); MPV 8.5 fL (7.6-11.3); RBC Red Blood Cell Count 2.61 M/uL (4.33-5.43)
[2020-11-02 06:04] LABS: Potassium 4.2 mmol/L (3.5-5.1)
[2020-11-02 07:01] LABS: Hematocrit 23.6 % (39.6-49.0)
[2020-11-02 08:03] LABS: Anisocytosis 2+; Blood Morphology Comment NOTED (NOT SEEN); Platelet Estimate ADEQ
[2020-11-02] MEDS: APIXABAN 2.5 MG TABLET PO SCH ×2 (08:35→20:11)
[2020-11-02] MEDS: LACTOBACILLUS/ACIDOPHILUS TAB PO SCH ×2 (08:36→20:02)
[2020-11-02] MEDS: dexAMETHasone 4 MG TAB PO SCH (08:36)
[2020-11-02] MEDS: FUROSEMIDE 40 MG TABLET PO SCH (08:36)
[2020-11-02] MEDS: FOLIC ACID 1 MG TABLET PO SCH (08:36)
[2020-11-02] MEDS: CALCIUM CARBONATE 500 MG TAB PO SCH (08:36)
[2020-11-02] MEDS: ASPIRIN 81 MG CHEWABLE TABLET PO SCH (08:37)
[2020-11-02] MEDS: ENSURE HIGH PROTEIN 237 ML CAN PO SCH ×2 (08:37→20:03)
[2020-11-02] MEDS: FERROUS SULFATE 325 MG TAB PO SCH (08:37)
[2020-11-02] MEDS: FAMOTIDINE 20 MG TAB PO SCH (08:41)
[2020-11-02] MEDS: ARFORMOTEROL TARTRATE 15 MCG/2 ML VIAL.NEB NEB SCH ×2 (09:40→20:00)
[2020-11-02] MEDS: CEFEPIME/SWI 1gm 10 ML IV SCH (12:52)
--- NOTE | 2020-11-02 14:17 | P.PN ---
Subjective Date of Service: 11/02/20 Primary Care Provider: Dr. Wilkins Chief Complaint: SOB , diarrhea Patient has no complain today. He reports about 3-5 BM overnight. He denies any abdominal pain. Physical Examination - Vital Signs Temperature: 97.7 F Blood Pressure: 125/59 Pulse: 83 Respirations: 18 Pulse Ox (%): 95 - Physical Exam General: In no apparent distress, Oriented x3 HEENT: Mucous membr. moist/pink Respiratory: Clear to auscultation bilaterally, Normal air movement Cardiovascular: Normal S1 S2, Irregular heart rate/rhythm Gastrointestinal: Soft and benign, Non-distended, No tenderness Musculoskeletal: No swelling Integumentary: No rashes Neurological: Normal strength at 5/5 x4 extr - Studies Medications List Reviewed: Yes Assessment And Plan - Current Problems (Diagnosis) (1) Clostridium difficile colitis Current Visit: No Status: Acute (2) Acute on chronic diastolic heart failure Current Visit: Yes Status: Acute (3) Pneumonia Current Visit: Yes Status: Acute (4) Acute worsening of stage 3 chronic kidney disease Current Visit: No Status: Acute (5) Generalized abdominal pain Current Visit: No Status: Acute (6) Atrial fibrillation Current Visit: No Status: Chronic Qualifiers: Atrial fibrillation type: chronic (7) Moderate malnutrition Current Visit: Yes Status: Acute (8) Hyponatremia Current Visit: Yes Status: Acute (9) Pseudomonas pneumonia Current Visit: Yes Status: Acute - Plan He also has hypoalbuminemia secondary to poor oral intake and probably malabsorption. Continue oral vancomycin. Discontinue IV Rocephin. Nutritional supplementation. Consult to spring encaser. Hold Lasix given increase serum creatinine today. Start IV fluid-NS to treat SHARITA and hyponatremia. Monitor renal function. No active bleeding. Noted drop in hemoglobin with may be secondary to hemodilution. Hemoglobin is stable. Continue Eliquis for now and monitor for active bleeding. Colonoscopy as an outpatient after colitis has been adequately treated. Physician Review: Patient Assessed, Agree with Above Assessment and Plan Physician Review Additional Text: Impression: Diarrhea, abdominal pain secondary to recurrent C.diff colitis Pneumonia complicated with COPD exacerbation on chronic steroids and oxygen, sputum culture positive for Pseudomonas Dyspnea secondary to Acute on chronic diastolic heart failure Acute on chronic renal disease stage III with hyperkalemia Chronic Atrial fibrillation on chronic anti coagulation therapy with CAD Moderate protein malnutrition Anemia of chronic disease Hypothyroidism Hypertension Plan: Diarrhea, abdominal pain secondary to recurrent C.diff colitis: Improved continue PO Vanc, will need GI f/u as outpatient, need prolonged 4 week taper F/u with Dr. Wilkins. Pneumonia complicated with COPD exacerbation on chronic steroids and oxygen, sputum culture positive for Pseudomonas: ID consulted. continue cefepime, patient should complete 10 days of cefepime today. SW/CM [facility] with [facility]. Pulmonology is following. Awaiting insurance authorization for home health. Dyspnea secondary to Acute on chronic diastolic heart failure: Lasix restarted per nephrology Acute on chronic renal disease stage III with hyperkalemia: Lasix restarted. Renal function improved to baseline. nephrology following. Continue Lasix Chronic Paroxysmal Atrial fibrillation on chronic anti coagulation therapy with CAD: Continue Eliquis. afib better controlled on current metoprolol dose. Plavix discontinued. Moderate protein malnutrition: Continue with dietary recommendations. Continue lactobacillus. Anemia of chronic disease: Continue with supplementation. Hypothyroidism: Continue medication. Hypertension: Continue medication.
[2020-11-02] MEDS ORDERED: NA CHLORIDE 0.9% 250 ML IV SCH (15:00)
[2020-11-02] MEDS ORDERED: NA CHLORIDE 0.9% 250 ML ONE (18:24)
[2020-11-02] MEDS: ATORVASTATIN 20 MG TAB PO SCH (20:02)
[2020-11-02] MEDS: CALCIUM CARBONATE CHEW 500MG TAB PO PRN (20:09)
--- NOTE | 2020-11-02 20:23 | PN ---
Date of Progress Note: 11/02/2020 Chief Complaint: Acute on chronic kidney injury. The patient has chronic kidney disease stage 3b. Baseline creatinine level is ranging from 2.2 to 2.4. Cardiorenal syndrome, he was treated with IV f luids for acute kidney injury. Currently, he is on Lasix. Previously, he was treated with Lasix and Aldactone for cardiorenal syndrome to control congestive heart failure. The patient is currently on p.o. vancomycin for Clostridium difficile colitis. Review of Systems: Denies fever or chills. Physical Examination: Lungs: Diminished breath sounds at bases. Heart: S1, S2. Abdomen: Soft, benign. Extremities: 1+ edema. Impression And Plan: 1.Acute on chronic kidney injury due to acute tubular necrosis, prerenal azotemia in the setting of renal hypoperfusion. The patient has hypovolemic conditions related to prolonged diarrhea with multi ple loose bowel movements in the setting of colitis with Clostridium difficile. Currently, the patie nt is on p.o. intake and is tolerating p.o. hydration. He will continue Lasix for congestive heart f ailure control. Monitor fluid balance and renal panel. His kidney injury is improving and renal fun ction currently is at baseline. 2.Pseudomonas pneumonia. Continue with cefepime. 3.Complex renal cyst. The patient will follow up with Urology as outpatient. EB/MODL Voice ID: [id number] Report ID: [id number]
[2020-11-03 01:26] LABS: Hematocrit 27.5 % (39.6-49.0)
[2020-11-03] MEDS: GABAPENTIN 300 MG CAP PO PRN (01:55)
[2020-11-03] MEDS: ACETAMINOPHEN 500 MG TAB PO PRN ×2 (01:55→12:58)
[2020-11-03] MEDS: IPRATROPIUM BROM 0.5MG/2.5ML NEB SCH ×4 (02:00→20:35)
[2020-11-03] MEDS: METOPROLOL XL 100 MG TAB PO SCH ×2 (05:14→17:01)
[2020-11-03] MEDS: LEVOTHYROXINE SOD 0.1 MG TAB PO SCH (05:14)
[2020-11-03] MEDS: VANCOMYCIN ORAL SOLN 250 MG/5 ML OSYR PO SCH ×4 (05:14→23:50)
[2020-11-03 06:59] LABS: Absolute Lymphocytes (CBC) 0.2 K/uL (0.7-4.9); Basophils % 0.7 % (0-1.3); Hematocrit 26.1 % (39.6-49.0); Lymphocytes % 2.5 % (15.3-44.8); MPV 8.7 fL (7.6-11.3); RBC Red Blood Cell Count 3.05 M/uL (4.33-5.43)
[2020-11-03 07:11] LABS: Potassium 4.1 mmol/L (3.5-5.1)
[2020-11-03] MEDS: ARFORMOTEROL TARTRATE 15 MCG/2 ML VIAL.NEB NEB SCH ×2 (09:10→20:35)
[2020-11-03] MEDS: ASPIRIN 81 MG CHEWABLE TABLET PO SCH (10:01)
[2020-11-03] MEDS: FOLIC ACID 1 MG TABLET PO SCH (10:01)
[2020-11-03] MEDS: LACTOBACILLUS/ACIDOPHILUS TAB PO SCH ×2 (10:01→22:27)
[2020-11-03] MEDS: dexAMETHasone 4 MG TAB PO SCH (10:01)
[2020-11-03] MEDS: FAMOTIDINE 20 MG TAB PO SCH (10:01)
[2020-11-03] MEDS: CALCIUM CARBONATE 500 MG TAB PO SCH (10:02)
[2020-11-03] MEDS: FERROUS SULFATE 325 MG TAB PO SCH (10:02)
[2020-11-03] MEDS: FUROSEMIDE 40 MG TABLET PO SCH (10:02)
[2020-11-03] MEDS: APIXABAN 2.5 MG TABLET PO SCH ×2 (10:02→22:27)
[2020-11-03] MEDS: ENSURE HIGH PROTEIN 237 ML CAN PO SCH ×2 (10:03→22:28)
--- NOTE | 2020-11-03 10:12 | P.PN ---
Subjective Date of Service: 11/03/20 Primary Care Provider: Dr. Wilkins Chief Complaint: SOB , diarrhea Patient has no complain today. He reports no change in bowel movement. He denies any abdominal pain. Physical Examination - Vital Signs Temperature: 98 F Blood Pressure: 132/82 Pulse: 97 Respirations: 18 Pulse Ox (%): 94 - Physical Exam General: Alert, In no apparent distress Respiratory: Clear to auscultation bilaterally, Normal air movement Cardiovascular: No edema, Normal S1 S2, Irregular heart rate/rhythm Gastrointestinal: Soft and benign, Non-distended, No tenderness Musculoskeletal: No swelling Integumentary: No rashes Neurological: Other (Non-focal.) - Studies Medications List Reviewed: Yes Assessment And Plan - Current Problems (Diagnosis) (1) Clostridium difficile colitis Current Visit: No Status: Acute (2) Acute on chronic diastolic heart failure Current Visit: Yes Status: Acute (3) Pneumonia Current Visit: Yes Status: Acute (4) Acute worsening of stage 3 chronic kidney disease Current Visit: No Status: Acute (5) Generalized abdominal pain Current Visit: No Status: Acute (6) Atrial fibrillation Current Visit: No Status: Chronic Qualifiers: Atrial fibrillation type: chronic (7) Moderate malnutrition Current Visit: Yes Status: Acute (8) Hyponatremia Current Visit: Yes Status: Acute (9) Pseudomonas pneumonia Current Visit: Yes Status: Acute (10) Acute on chronic blood loss anemia Current Visit: Yes Status: Acute Physician Review: Patient Assessed, Agree with Above Assessment and Plan Physician Review Additional Text: Impression: Diarrhea, abdominal pain secondary to recurrent C.diff colitis Pneumonia complicated with COPD exacerbation on chronic steroids and oxygen, sputum culture positive for Pseudomonas Dyspnea secondary to Acute on chronic diastolic heart failure Acute on chronic renal disease stage III with hyperkalemia Chronic Atrial fibrillation on chronic anti coagulation therapy with CAD Moderate protein malnutrition Anemia of chronic disease Hypothyroidism Hypertension Plan: Diarrhea, abdominal pain secondary to recurrent C.diff colitis: Improved continue PO Vanc, will need GI f/u as outpatient, need prolonged 4 week taper F/u with Dr. Wilkins. Pneumonia complicated with COPD exacerbation on chronic steroids and oxygen, sputum culture positive for Pseudomonas: Seen by ID. Patient completed 10 days of cefepime. SW/CM [facility] with [facility]. Pulmonology is following. Awaiting insurance authorization for home health. Dyspnea secondary to Acute on chronic diastolic heart failure: Lasix restarted per nephrology Acute on chronic renal disease stage III with hyperkalemia: Lasix restarted. Renal function improved to baseline. nephrology following. Continue Lasix Chronic Paroxysmal Atrial fibrillation on chronic anti coagulation therapy with CAD: Continue Eliquis. afib better controlled on current metoprolol dose. Plavix discontinued. Moderate protein malnutrition: Continue with dietary recommendations. Continue lactobacillus. Anemia of chronic disease: Continue with supplementation. Hypothyroidism: Continue medication. Hypertension: Continue medication. Acute on chronic blood loss anemia Status post 1 unit PRBC transfusion No active bleeding. Patient denies bloody stools. Hemoglobin level has been relatively stable over the course of the hospital stay. Benefits of Eliquis at the moment outweighs the risk. Continue Eliquis. Monitor hemoglobin and hematocrits.
[2020-11-03] MEDS: CEFEPIME/SWI 1gm 10 ML IV SCH (12:13)
[2020-11-03] MEDS: CALCIUM CARBONATE CHEW 500MG TAB PO PRN ×2 (12:58→17:04)
--- NOTE | 2020-11-03 16:18 | EKG ---
Test Date: 2020-10-30 Test Time: 23:02:10 Associate Editor: RT-O MEASUREMENT RESULTS: Intervals: Rate: 76 VT: 136 QRSD: 118 QT: 392 QTc: 441 [place]: P: 76 VT: 136 QRS: -7 T: 34 INTERPRETIVE STATEMENTS: Normal sinus rhythm Incomplete right bundle branch block Septal infarct, age undetermined Abnormal ECG Compared to ECG 10/21/2020 20:56:19 Atrial fibrillation no longer present Ventricular premature complex(es) no longer present Left-axis deviation no longer present Myocardial infarct finding still present Electronically Signed On 11-03-20 16:10:26 SATELLITE DISH TECHNICIAN by Nasir Bailey
[2020-11-03] MEDS: ATORVASTATIN 20 MG TAB PO SCH (22:27)
--- NOTE | 2020-11-03 22:52 | PN ---
Date of Progress Note: 11/03/2020 Chief Complaint: Acute on chronic kidney injury. Patient has chronic kidney stage 3B, creatinine le leah has been ranging from 2.2 to 2.4. Patient has acute on chronic kidney injury. Patient has been treated with IV fluids to prevent renal hypoperfusion. He had diarrhea, which caused renal decline a nd patient subsequently was stabilized with IV fluids. The patient has nonoliguric urine output. He denies renal colic or gross hematuria. Currently, patient is on Lasix maintenance dose, cardiorenal syndrome controlled. Review of Systems: Denies PND or orthopnea. Physical Examination: Lungs: Clear to auscultation bilaterally. Heart: S1, S2. Abdomen: Soft, benign. Extremities: 1+ edema. Impression And Plan: 1.Acute on chronic kidney injury due to acute tubular necrosis, prerenal and azotemia in the setting of severe renal hypoperfusion triggered by hypovolemia secondary to colitis with Clostridium disease . The patient is on p.o. vancomycin. 2.Cardiorenal syndrome, chronic. Patient denies dyspnea, PND, orthopnea. Continue Lasix and adjust dose according to fluid balance. 3.Pseudomonas pneumonia. Continue cefepime. Complex renal cyst. Patient will follow up with Urol[facility] as an outpatient. ABILIO/MODL Voice ID: [id number] Report ID: [id number]
[2020-11-04] MEDS: IPRATROPIUM BROM 0.5MG/2.5ML NEB SCH ×4 (01:06→19:50)
[2020-11-04] MEDS: METOPROLOL XL 100 MG TAB PO SCH ×2 (05:48→17:30)
[2020-11-04] MEDS: LEVOTHYROXINE SOD 0.1 MG TAB PO SCH (05:48)
[2020-11-04] MEDS: VANCOMYCIN ORAL SOLN 250 MG/5 ML OSYR PO SCH ×4 (05:48→23:59)
[2020-11-04] MEDS: ACETAMINOPHEN 500 MG TAB PO PRN ×2 (05:55→11:50)
[2020-11-04] MEDS: CALCIUM CARBONATE CHEW 500MG TAB PO PRN ×2 (05:55→11:54)
[2020-11-04 06:04] VITALS: BMI 23.8
[2020-11-04] MEDS: ARFORMOTEROL TARTRATE 15 MCG/2 ML VIAL.NEB NEB SCH ×2 (08:10→19:50)
[2020-11-04] MEDS: ALBUTEROL 2.5 MG/3 ML NEB SOL NEB PRN ×2 (08:10→14:25)
[2020-11-04] MEDS: FERROUS SULFATE 325 MG TAB PO SCH (08:36)
[2020-11-04] MEDS: ASPIRIN 81 MG CHEWABLE TABLET PO SCH (08:36)
[2020-11-04] MEDS: dexAMETHasone 4 MG TAB PO SCH (08:37)
[2020-11-04] MEDS: FAMOTIDINE 20 MG TAB PO SCH (08:37)
[2020-11-04] MEDS: CALCIUM CARBONATE 500 MG TAB PO SCH (08:37)
[2020-11-04] MEDS: APIXABAN 2.5 MG TABLET PO SCH ×2 (08:37→20:41)
[2020-11-04] MEDS: LACTOBACILLUS/ACIDOPHILUS TAB PO SCH ×2 (08:37→20:40)
[2020-11-04] MEDS: FOLIC ACID 1 MG TABLET PO SCH (08:37)
[2020-11-04] MEDS: FUROSEMIDE 40 MG TABLET PO SCH (08:37)
[2020-11-04] MEDS: ENSURE HIGH PROTEIN 237 ML CAN PO SCH ×2 (08:38→20:43)
--- NOTE | 2020-11-04 11:35 | P.PN ---
Subjective Date of Service: 11/04/20 Primary Care Provider: Dr. Wilkins Chief Complaint: SOB , diarrhea Patient complaining of increased shortness of breath today. He reports no change in bowel movement. He denies any abdominal pain. Physical Examination - Vital Signs Temperature: 97.8 F Blood Pressure: 156/76 Pulse: 80 Respirations: 17 Pulse Ox (%): 96 - Physical Exam General: Alert, In no apparent distress Neck: JVD not distended Respiratory: Diminished, Other (Mild scattered rhonchi) Cardiovascular: Normal S1 S2, Irregular heart rate/rhythm Gastrointestinal: Normal bowel sounds, Soft and benign, Non-distended, No tenderness Musculoskeletal: No swelling, No tenderness Integumentary: No rashes Neurological: Normal strength at 5/5 x4 extr - Studies Medications List Reviewed: Yes Assessment And Plan - Current Problems (Diagnosis) (1) Clostridium difficile colitis Current Visit: No Status: Acute (2) Acute on chronic diastolic heart failure Current Visit: Yes Status: Acute (3) Pneumonia Current Visit: Yes Status: Acute (4) Acute worsening of stage 3 chronic kidney disease Current Visit: No Status: Acute (5) Generalized abdominal pain Current Visit: No Status: Acute (6) Atrial fibrillation Current Visit: No Status: Chronic Qualifiers: Atrial fibrillation type: chronic (7) Moderate malnutrition Current Visit: Yes Status: Acute (8) Hyponatremia Current Visit: Yes Status: Acute (9) Pseudomonas pneumonia Current Visit: Yes Status: Acute (10) Acute on chronic blood loss anemia Current Visit: Yes Status: Acute Physician Review Additional Text: Impression: Diarrhea, abdominal pain secondary to recurrent C.diff colitis Pneumonia complicated with COPD exacerbation on chronic steroids and oxygen, sputum culture positive for Pseudomonas Dyspnea secondary to Acute on chronic diastolic heart failure Acute on chronic renal disease stage III with hyperkalemia Chronic Atrial fibrillation on chronic anti coagulation therapy with CAD Moderate protein malnutrition Anemia of chronic disease Hypothyroidism Hypertension Plan: Diarrhea, abdominal pain secondary to recurrent C.diff colitis: Improved continue PO Vanc, will need GI f/u as outpatient, patient is slated for prolonged 4 week vancomycin taper F/u with Dr. Wilkins. Pneumonia complicated with COPD exacerbation on chronic steroids and oxygen, sputum culture positive for Pseudomonas: Seen by ID. Patient completed 10 days of cefepime. SW/CM [facility] with [facility]. Pulmonology is following. Awaiting insurance authorization for home health. Dyspnea secondary to Acute on chronic diastolic heart failure: Lasix restarted per nephrology Acute on chronic renal disease stage III with hyperkalemia: Lasix restarted. Renal function improved to baseline. nephrology following. Continue Lasix. Patient complaining of increased shortness of breath today. Will get a follow up chest x-ray. Chronic Paroxysmal Atrial fibrillation on chronic anti coagulation therapy with CAD: Continue Eliquis. afib better controlled on current metoprolol dose. Plavix discontinued. Moderate protein malnutrition: Continue with dietary recommendations. Continue lactobacillus. Anemia of chronic disease: Continue with supplementation. Hypothyroidism: Continue medication. Hypertension: Continue medication. Acute on chronic blood loss anemia Status post 1 unit PRBC transfusion No active bleeding. Patient denies bloody stools. Hemoglobin level has been relatively stable over the course of the hospital stay. Benefits of Eliquis at the moment outweighs the risk. Continue Eliquis. Monitor hemoglobin and hematocrits.
[2020-11-04] MEDS: GABAPENTIN 300 MG CAP PO PRN (11:53)
--- NOTE | 2020-11-04 12:19 | RAD REPORT ---
EXAM DESCRIPTION: Dorothy Single View11/04/2020 12:05 pm CLINICAL HISTORY: Shortness of breath COMPARISON: October 22, 2020 FINDINGS: Left lung volume loss Lungs appear clear of acute infiltrate. Heart is normal size. PICC line in place
[2020-11-04] MEDS: ATORVASTATIN 20 MG TAB PO SCH (20:41)
[2020-11-05] MEDS: IPRATROPIUM BROM 0.5MG/2.5ML NEB SCH ×4 (02:21→20:00)
[2020-11-05] MEDS: ACETAMINOPHEN 500 MG TAB PO PRN (05:36)
[2020-11-05] MEDS: VANCOMYCIN ORAL SOLN 250 MG/5 ML OSYR PO SCH ×3 (05:36→17:40)
[2020-11-05] MEDS: CALCIUM CARBONATE CHEW 500MG TAB PO PRN (05:37)
[2020-11-05] MEDS: LEVOTHYROXINE SOD 0.1 MG TAB PO SCH (05:37)
[2020-11-05] MEDS: METOPROLOL XL 100 MG TAB PO SCH ×2 (05:38→17:40)
[2020-11-05 06:09] LABS: Hematocrit 28.3 % (39.6-49.0)
[2020-11-05] MEDS: ARFORMOTEROL TARTRATE 15 MCG/2 ML VIAL.NEB NEB SCH ×2 (08:31→20:00)
[2020-11-05] MEDS: ENSURE HIGH PROTEIN 237 ML CAN PO SCH ×2 (09:00→21:19)
[2020-11-05] MEDS: FAMOTIDINE 20 MG TAB PO SCH (10:14)
[2020-11-05] MEDS: CALCIUM CARBONATE 500 MG TAB PO SCH (10:14)
[2020-11-05] MEDS: dexAMETHasone 4 MG TAB PO SCH (10:14)
[2020-11-05] MEDS: FOLIC ACID 1 MG TABLET PO SCH (10:14)
[2020-11-05] MEDS: FERROUS SULFATE 325 MG TAB PO SCH (10:14)
[2020-11-05] MEDS: APIXABAN 2.5 MG TABLET PO SCH ×2 (10:14→21:41)
[2020-11-05] MEDS: LACTOBACILLUS/ACIDOPHILUS TAB PO SCH ×2 (10:14→21:18)
[2020-11-05] MEDS: FUROSEMIDE 40 MG TABLET PO SCH (10:14)
[2020-11-05] MEDS: ASPIRIN 81 MG CHEWABLE TABLET PO SCH (10:14)
--- NOTE | 2020-11-05 11:04 | P.PN ---
Subjective Date of Service: 11/05/20 Primary Care Provider: Dr. Wilkins Chief Complaint: SOB , diarrhea No new complain. No change in bowel movement. Repeat Chest x-ray reveiwed. No new infiltrate. Physical Examination - Vital Signs Temperature: 97.8 F Blood Pressure: 137/63 Pulse: 89 Respirations: 18 Pulse Ox (%): 95 - Physical Exam General: In no apparent distress, Oriented x3 HEENT: Mucous membr. moist/pink Respiratory: Clear to auscultation bilaterally, Diminished Cardiovascular: Edema (Trace Bilateral pedal edema.) Gastrointestinal: Normal bowel sounds, Soft and benign, No tenderness Musculoskeletal: No swelling Integumentary: No rashes Neurological: Normal strength at 5/5 x4 extr - Studies Medications List Reviewed: Yes Assessment And Plan - Current Problems (Diagnosis) (1) Clostridium difficile colitis Current Visit: No Status: Acute (2) Acute on chronic diastolic heart failure Current Visit: Yes Status: Acute (3) Pneumonia Current Visit: Yes Status: Acute (4) Acute worsening of stage 3 chronic kidney disease Current Visit: No Status: Acute (5) Generalized abdominal pain Current Visit: No Status: Acute (6) Atrial fibrillation Current Visit: No Status: Chronic Qualifiers: Atrial fibrillation type: chronic (7) Moderate malnutrition Current Visit: Yes Status: Acute (8) Hyponatremia Current Visit: Yes Status: Acute (9) Pseudomonas pneumonia Current Visit: Yes Status: Acute (10) Acute on chronic blood loss anemia Current Visit: Yes Status: Acute Physician Review Additional Text: Impression: Diarrhea, abdominal pain secondary to recurrent C.diff colitis Pneumonia complicated with COPD exacerbation on chronic steroids and oxygen, sputum culture positive for Pseudomonas Dyspnea secondary to Acute on chronic diastolic heart failure Acute on chronic renal disease stage III with hyperkalemia Chronic Atrial fibrillation on chronic anti coagulation therapy with CAD Moderate protein malnutrition Anemia of chronic disease Hypothyroidism Hypertension Plan: Diarrhea, abdominal pain secondary to recurrent C.diff colitis: continue PO Vanc, will need GI f/u as outpatient, patient is slated for prolonged 4 week vancomycin taper F/u with Dr. Wilkins as outpatient. Pneumonia complicated with COPD exacerbation on chronic steroids and oxygen, sputum culture positive for Pseudomonas: Seen by ID. Patient completed 10 days of cefepime. SW/CM assisting with arrangement home health. Pulmonology is following. Awaiting insurance authorization for home health. Dyspnea secondary to Acute on chronic diastolic heart failure: Lasix restarted per nephrology Acute on chronic renal disease stage III with hyperkalemia: Continue Lasix. Renal function improved to baseline. nephrology following. Chronic Paroxysmal Atrial fibrillation on chronic anti coagulation therapy with CAD: Continue Eliquis. Afib better controlled on current metoprolol dose. Plavix discontinued. Moderate protein malnutrition: Continue with dietary recommendations. Continue lactobacillus. Anemia of chronic disease: Continue with supplementation. Hypothyroidism: Continue medication. Hypertension: Continue medication. Acute on chronic blood loss anemia Status post 1 unit PRBC transfusion No active bleeding. Patient denies bloody stools. Hemoglobin level has been stable over the course of the hospital stay. Benefits of Eliquis at the moment outweighs the risk. Continue Eliquis. Awaiting insurance authorization for home health.
--- NOTE | 2020-11-05 20:53 | PN ---
Date of Progress Note: 11/04/2020 Chief Complaint: Acute on chronic kidney injury. The patient has had chronic kidney stage 3b. Crea tinine level has been in range from 2.2 to 2.4. He developed acute on chronic kidney injury secondar y to nonoliguric ATN in setting with prerenal azotemia. The patient was hypovolemic, intravascularly depleted, and the patient received IV fluids. The patient although has history of congestive heart failure. IV fluids were weaned off. The patient is on low dose of Lasix as needed volume control. Renal function has improved to baseline. The patient will continue maintenance diuretic dose for car diorenal syndrome. Review of Systems: Denies PND or orthopnea. Physical Examination: Lungs: Diminished breath sounds at bases. Heart: S1, S2. Abdomen: Soft, benign. Extremities: 1+ edema in both legs. Impression And Plan: 1.Acute on chronic kidney injury due to acute tubular necrosis, prerenal azotemia in the setting of severe renal hypoperfusion triggered by hypovolemia secondary to colitis with Clostridium disease. T he patient is on p.o. vancomycin. Continue adequate hydration. Monitor fluid balance. 2.Cardiorenal syndrome. The patient denies dyspnea, paroxysmal nocturnal dyspnea, or orthopnea. Co ntinue Lasix as needed. Adjust dose according to fluid bath. 3.Pseudomonas pneumonia. Continue cefepime. 4.Complex renal cyst. The patient will have a followup outpatient with Urology. ABILIO/RYAN Voice ID: [id number] Report ID: [id number]
[2020-11-05] MEDS: ATORVASTATIN 20 MG TAB PO SCH (21:18)
[2020-11-06] MEDS: VANCOMYCIN ORAL SOLN 250 MG/5 ML OSYR PO SCH ×4 (00:10→18:08)
[2020-11-06] MEDS: ACETAMINOPHEN 500 MG TAB PO PRN ×2 (00:11→11:51)
--- NOTE | 2020-11-06 00:32 | PN ---
Date of Progress Note: 11/05/2020 Chief Complaint: Acute on chronic kidney injury. Patient developed prerenal azotemia, nonoliguric a cute tubular necrosis. Renal function improved in response to IV fluids. Patient although has perip heral edema indicating fluid overload. He had congestive heart failure chronic, and is currently on Lasix for volume control. Edema has improved. Review of Systems: Denies PND or orthopnea. Physical Examination: Lungs: Clear to auscultation bilaterally. Heart: S1, S2. Abdomen: Soft, benign. Extremities: 1+ edema. Impression And Plan: 1.Acute on chronic kidney injury due to acute tubular necrosis, prerenal azotemia. Patient responde d to IV fluids. Patient developed hypovolemia due to colitis secondary to Clostridium difficile infe ction. Patient is on p.o. vancomycin. 2.Cardiorenal syndrome. The patient denies dyspnea, denies paroxysmal nocturnal dyspnea, orthopnea. Continue Lasix for volume control. 3.Pseudomonas pneumonia, on cefepime. 4.Complex renal cyst. The patient will follow up with Urology as outpatient. ABILIO/RYAN Voice ID: [id number] Report ID: [id number]
[2020-11-06 00:33] VITALS: O2SAT 97
[2020-11-06] MEDS: IPRATROPIUM BROM 0.5MG/2.5ML NEB SCH ×3 (02:20→14:56)
[2020-11-06 04:56] LABS: Hematocrit 24.6 % (39.6-49.0)
[2020-11-06] MEDS: METOPROLOL XL 100 MG TAB PO SCH ×2 (06:07→18:08)
[2020-11-06] MEDS: LEVOTHYROXINE SOD 0.1 MG TAB PO SCH (06:08)
[2020-11-06] MEDS: ARFORMOTEROL TARTRATE 15 MCG/2 ML VIAL.NEB NEB SCH (08:43)
[2020-11-06] MEDS: FOLIC ACID 1 MG TABLET PO SCH (10:08)
[2020-11-06] MEDS: LACTOBACILLUS/ACIDOPHILUS TAB PO SCH (10:08)
[2020-11-06] MEDS: CALCIUM CARBONATE 500 MG TAB PO SCH (10:08)
[2020-11-06] MEDS: FUROSEMIDE 40 MG TABLET PO SCH (10:08)
[2020-11-06] MEDS: ASPIRIN 81 MG CHEWABLE TABLET PO SCH (10:08)
[2020-11-06] MEDS: FERROUS SULFATE 325 MG TAB PO SCH (10:08)
[2020-11-06] MEDS: dexAMETHasone 4 MG TAB PO SCH (10:09)
[2020-11-06] MEDS: FAMOTIDINE 20 MG TAB PO SCH (10:12)
[2020-11-06] MEDS: ENSURE HIGH PROTEIN 237 ML CAN PO SCH (10:14)
[2020-11-06] MEDS: APIXABAN 2.5 MG TABLET PO SCH (10:16)
[2020-11-06] MEDS: CALCIUM CARBONATE CHEW 500MG TAB PO PRN (11:50)
--- NOTE | 2020-11-06 12:09 | P.DS ---
Admission Date: 10/22/20 Discharge Date: 11/06/20 Primary Care Provider: Dr. Wilkins Disposition: DC HOME/HOME HEALTH CARE Discharge Condition: FAIR Reason for Admission: SOB , diarrhea Consultations: Infectious disease-Dr. Trujillo. - Problems (1) Clostridium difficile colitis Current Visit: No Status: Acute (2) Acute on chronic diastolic heart failure Current Visit: Yes Status: Acute (3) Pneumonia Current Visit: Yes Status: Acute (4) Acute worsening of stage 3 chronic kidney disease Current Visit: No Status: Acute (5) Generalized abdominal pain Current Visit: No Status: Acute (6) Atrial fibrillation Current Visit: No Status: Chronic Qualifiers: Atrial fibrillation type: chronic (7) Moderate malnutrition Current Visit: Yes Status: Acute (8) Hyponatremia Current Visit: Yes Status: Acute (9) Pseudomonas pneumonia Current Visit: Yes Status: Acute (10) Acute on chronic blood loss anemia Current Visit: Yes Status: Acute Brief History of Present Illness: 65-year-old gentleman with a history of chronic atrial fibrillation, congestive heart failure, COPD, chronic respiratory failure on home oxygen presented to the emergency department with a complaint of worsening shortness of breath and diarrhea. Patient had prior melena stool and had been worked up by GI with endoscopy, cause of melena has not been found yet. Patient has been on Eliquis for AFib anticoagulation. He was following with Dr. Arthur regarding the GI bleed. Patient found to have severe leukocytosis. C. diff colitis was suspected. Patient was admitted for further management. Hospital Course: Patient admitted to the medical floor, stool for C. diff was obtained, patient tested positive for C. diff and was started on oral vancomycin. This is 2nd episode of C. diff colitis. He was seen by infectious disease recommended prolonged vancomycin taper. Patient will be discharged with prolonged vancomycin taper per protocol. Patient experience episodes of shortness of breath and wheezing secondary to COPD exacerbation. His sputum culture grew Pseudomonas. Infectious disease recommended 10 days of IV cefepime which patient completed during the hospital stay. He was seen in consultation by Nephrology for acute on chronic renal failure. His creatinine was up to 3.5 compared to a baseline of 2. He was on Lasix which was held and later resumed when his renal function recovered to baseline. He was hydrated briefly with IV fluids for dehydration secondary to diarrhea. Patient was seen by physical therapy and needed assistance with ambulation. PT recommend home health for PT. His hemoglobin dropped to 7. Patient was given 1 unit PRBC transfusion for symptomatic anemia. Patient has clinically improved with treatment and deemed clinically stable for discharge. He is prescribed for arfomoterol and budesonide for his severe COPD. Vital Signs/Physical Exam: Temp Pulse Resp BP Pulse Ox 97.6 F 83 16 150/72 H 98 11/06/20 04:00 11/06/20 10:08 11/06/20 04:00 11/06/20 10:08 11/06/20 04:00 General: Alert, In no apparent distress HEENT: Mucous membr. moist/pink Neck: Supple, JVD not distended Respiratory: Clear to auscultation bilaterally, Normal air movement, Diminished Cardiovascular: Normal S1 S2, Edema (Trace bilateral lower extremity edema), Irr egular heart rate/rhythm Gastrointestinal: Normal bowel sounds, Soft and benign, Non-distended, No tenderness Musculoskeletal: No swelling, No tenderness Neurological: Normal speech, Normal strength at 5/5 x4 extr, Cranial nerves 3-12 intact Laboratory Data at Discharge: WBC 7.2 K/uL (4.3-10.9) 11/03/20 05:00 Hgb 7.9 g/dL (13.6-17.9) L* 11/06/20 04:20 Hct 24.6 % (39.6-49.0) L 11/06/20 04:20 Plt Count 141 K/uL (152-406) L 11/03/20 05:00 PT 18.7 SECONDS (9.5-12.5) H 10/21/20 21:00 INR 1.60 10/21/20 21:00 Sodium 142 mmol/L (136-145) 11/03/20 05:00 Potassium 4.1 mmol/L (3.5-5.1) 11/03/20 05:00 BUN 41 mg/dL (7-18) H 11/03/20 05:00 Creatinine 2.08 mg/dL (0.55-1.3) H 11/03/20 05:00 Glucose 81 mg/dL (74-106) 11/03/20 05:00 Magnesium 2.2 mg/dL (1.8-2.4) 10/31/20 04:40 Total Bilirubin 0.2 mg/dL (0.2-1.0) 10/22/20 07:32 AST 20 U/L (15-37) 10/22/20 07:32 ALT 15 U/L (12-78) 10/22/20 07:32 Alkaline Phosphatase 77 U/L (45-117) 10/22/20 07:32 Troponin I < 0.02 ng/mL (0.0-0.045) 10/22/20 07:32 Home Medications: Acetaminophen/Diphenhydramine [Tylenol Pm Ex-Strength Caplet] 2 tab PO BEDTIME PRN 07/07/20 Albuterol Sulfate [Proair Hfa] 1 puff IH PRN PRN 07/07/20 Aspirin Chewable [Aspirin Chewable*] 81 mg PO DAILY 07/07/20 Cholecalciferol (Vitamin D3) [Vitamin D3] 2,000 unit PO DAILY 07/07/20 Cyclobenzaprine [Flexeril*] 5 mg PO BEDTIME PRN 07/07/20 Folic Acid 3 mg PO DAILY 07/07/20 Gabapentin [Neurontin*] 300 mg PO BID PRN 07/07/20 LORazepam [Ativan*] 0.5 mg PO BEDTIME PRN 07/07/20 Magnesium Oxide [Magnesium] 400 mg PO DAILY 07/07/20 Multivitamin with Minerals [One Daily Plus Minerals] 1 tab PO DAILY 07/07/20 allopurinoL [Zyloprim*] 100 mg PO BEDTIME 07/07/20 Simvastatin 20 mg PO BEDTIME 07/25/20 Calcium Carbonate [Tums Regular*] 1,000 mg PO DAILY #30 tab 07/28/20 L.acidoph,Paracasei, B.lactis [Probiotic] 1 each PO DAILY 08/03/20 Leflunomide 20 mg PO BEDTIME 08/03/20 Apixaban [Eliquis] 5 mg PO BID 30 Days #60 tablet 08/05/20 Spironolactone [Aldactone*] 25 mg PO DAILY #30 tab 08/05/20 Furosemide [Lasix] 40 mg PO DAILY 10/22/20 dexAMETHasone [Dexamethasone] 1 mg PO DAILY 10/22/20 Albuterol Neb [Proventil 0.083% Neb Soln] 2.5 mg NEB Q6HP PRN #120 amp 11/06/20 Arformoterol Tartrate [Brovana] 15 mcg NEB BIDRESP #60 vial.neb 11/06/20 Budesonide [Pulmicort] 0.5 mg IH BID #60 ampul.neb 11/06/20 Ensure High Protein 237 ml PO BID #60 can 11/06/20 Ferrous Sulfate [Ferrous Sulfate*] 325 mg PO DAILY #30 tab 11/06/20 Ipratropium Neb [Atrovent*] 0.5 mg NEB [id number] #120 amp 11/06/20 Levothyroxine [Synthroid*] 0.1 mg PO [id number] #30 tab 11/06/20 Metoprolol Succinate [Toprol Xl*] 100 mg PO BID 6AM 6PM #60 tab 11/06/20 Vancomycin Oral Soln [Vancocin HCl*] 5 ml PO Q6HR #460 ml 11/06/20 New Medications: Ipratropium Neb [Atrovent*] 0.5 mg NEB [id number] #120 amp Albuterol Neb [Proventil 0.083% Neb Soln] 2.5 mg NEB Q6HP PRN #120 amp PRN Reason: Shortness Of Breath Vancomycin Oral Soln [Vancocin HCl*] 5 ml PO Q6HR #460 ml Arformoterol Tartrate [Brovana] 15 mcg NEB BIDRESP #60 vial.neb Ensure High Protein 237 ml PO BID #60 can Ferrous Sulfate [Ferrous Sulfate*] 325 mg PO DAILY #30 tab Budesonide [Pulmicort] 0.5 mg IH BID #60 ampul.neb Levothyroxine [Synthroid*] 0.1 mg PO [id number] #30 tab Metoprolol Succinate [Toprol Xl*] 100 mg PO BID 6AM 6PM #60 tab Diet: AHA Activity: Fall precautions Followup: Danial Wilkins MD [Primary Care Provider] - 1 Week (Follow up in office in 1 week. Call to schedule an appointment.) Tomas Sawant MD [ACTIVE - CAN ADMIT] - 1-2 Weeks Time spent managing pt's care (in minutes): 45
[2020-11-06 17:01] VITALS: BP 120/68; TEMP 98.4
--- NOTE | 2020-11-06 21:21 | PN ---
Date of Progress Note: 11/06/2020 Subjective: Acute on chronic kidney injury. Patient developed prerenal azotemia, nonoliguric acute tubular necrosis. Renal function has improved to baseline today. Lab work showed creatinine 1.98. Patient is on p.o. Lasix for cardiorenal syndrome and patient will increase Lasix p.o. 40 mg twice a day for 3 days, subsequently he will continue 40 mg once a day. Review of Systems: Denies PND or orthopnea. Physical Examination: LUNGS: Diminished breath sounds at the bases. HEART: S1, S2. ABDOMEN: Soft, benign. EXTREMITIES: 1+ edema. Impression And Plan: 1.Acute on chronic kidney injury due to tubular necrosis. 2.Prerenal azotemia. Patient responded to IV fluids. Renal function has improved. Patient develop ed hypovolemia due to colitis secondary to Clostridium difficile infection. Patient is on p.o. vanco mycin. 3.Cardiorenal syndrome. Patient denies chest pain. Denies PND or orthopnea. Patient will continue Lasix, adjust maintenance dose for adequate fluid balance. 4.Complex renal cyst. Patient will follow up with Urology outpatient. ABILIO/RYAN Voice ID: [id number] Report ID: [id number]
--- NOTE | 2020-11-06 23:28 | PN ---
Subjective: Patient continued to have loose motion with no other complaints. Objective: Vital Signs: Reviewed. Lungs: Basal crackles. Heart: S1, S2. Regular. Abdomen: Bowel sounds hyperactive. Extremities: No edema or muscle wasting noted. Laboratory Data: Reviewed. Assessment And Plan: Diarrhea secondary to malabsorption versus Clostridium difficile. Patient to f ollow up with GI team. Continue supportive care and fluid hydration. Continue current treatment. N o new recommendation at this time. NF/MODL Voice ID: [id number] Report ID: [id number]
== END 2020-11-06 19:30 | disposition home health service (06) | DRG 371 ==
LOC: ER 20:00 → ERHOLD 10-22 00:01 → 2ND 10-22 01:49
PROVIDERS: ADMIT Internal Medicine; ATTEND Internal Medicine
PROC: 02HV33Z Insertion of Infusion Device into Superior Vena Cava, Percutaneous Approach (ICD-10-PCS; 2020-10-25)
PROC: 30233N1 Transfusion of Nonautologous Red Blood Cells into Peripheral Vein, Percutaneous Approach (ICD-10-PCS; principal; 2020-11-02)
DX: A04.72 Enterocolitis due to Clostridium difficile, not specified as recurrent (principal); I50.33 Acute on chronic diastolic (congestive) heart failure; J15.1 Pneumonia due to Pseudomonas; N17.0 Acute kidney failure with tubular necrosis; R65.11 Systemic inflammatory response syndrome (SIRS) of non-infectious origin with acute organ dysfunction; I13.0 Hypertensive heart and chronic kidney disease with heart failure and stage 1 through stage 4 chronic kidney disease, or unspecified chronic kidney disease; J44.1 Chronic obstructive pulmonary disease with (acute) exacerbation; J44.0 Chronic obstructive pulmonary disease with (acute) lower respiratory infection; E87.1 Hypo-osmolality and hyponatremia; E44.0 Moderate protein-calorie malnutrition; D62 Acute posthemorrhagic anemia; J96.10 Chronic respiratory failure, unspecified whether with hypoxia or hypercapnia; I25.10 Atherosclerotic heart disease of native coronary artery without angina pectoris; N18.32 Chronic kidney disease, stage 3b; I48.0 Paroxysmal atrial fibrillation; E87.5 Hyperkalemia; N28.1 Cyst of kidney, acquired; D63.8 Anemia in other chronic diseases classified elsewhere; E03.9 Hypothyroidism, unspecified; E86.0 Dehydration; R19.7 Diarrhea, unspecified; Z88.8 Allergy status to other drugs, medicaments and biological substances; Z85.118 Personal history of other malignant neoplasm of bronchus and lung; Z90.49 Acquired absence of other specified parts of digestive tract; Z87.891 Personal history of nicotine dependence; Z79.01 Long term (current) use of anticoagulants; Z99.81 Dependence on supplemental oxygen; Z68.23 Body mass index [BMI] 23.0-23.9, adult; Z79.82 Long term (current) use of aspirin; Z79.890 Hormone replacement therapy; Z79.899 Other long term (current) drug therapy; Z20.822 Contact with and (suspected) exposure to COVID-19
CPT/HCPCS: 36415; 36569; 71045; 74018; 74176; 76770; 80048; 80053; 80076; 81015; 82550; 82570; 82728; 83540; 83605; 83735; 83880; 84145; 84300; 84443; 84466; 84484; 85014; 85018; 85025; 85610; 86850; 86900; 86901; 87040; 87045; 87046; 87070; 87077; 87186; 87205; 87324; 87449; 87804; 93005; 96361; 96365; 96375; 97112; 97116; 97161; 99285; J0282; J0692; J0696; J1100; J1160; J1940; J2270; J2405; J3480; J7030; J7050; J7605; J8540; P9016; U0003

== ENCOUNTER 2020-12-27 14:48 | Inpatient (IN) | payer BC, OTHER ==
--- NOTE | 2020-12-27 15:53 | RAD REPORT ---
EXAM DESCRIPTION: RAD - Chest Single View - 12/27/2020 3:46 pm CLINICAL HISTORY: COPD;Dyspnea Chest pain. COMPARISON: Chest Single View dated 11/04/2020; Abdomen 1 View (KUB) dated 10/29/2020; Chest Single Vi ew dated 10/26/2020; Chest Single View dated 10/25/2020 FINDINGS: Portable technique limits examination quality. Increased reticular opacities in the right lung noted which may be related to infection. Chronic dimi nished left lung volume noted. The heart is normal in size.
[2020-12-27 15:58] LABS: Absolute Lymphocytes (CBC) 0.4 K/uL (0.7-4.9); Basophils % 0.2 % (0-1.3); Hematocrit 27.7 % (39.6-49.0); MPV 7.7 fL (7.6-11.3); RBC Red Blood Cell Count 3.15 M/uL (4.33-5.43)
[2020-12-27 16:07] LABS: Protime INR 1.22
[2020-12-27 16:28] LABS: Anisocytosis 1+; Blood Morphology Comment NOTED (NOT SEEN); Platelet Estimate ADEQ
[2020-12-27 16:35] LABS: Potassium 4.6 mmol/L (3.5-5.1); Troponin (Emerg Dept Use Only) 0.17 ng/mL (0.0-0.045)
[2020-12-27] MEDS ORDERED: CEFTRIAXONE/SWI 1gm 1 GM/10 ML SYR ONE (17:15)
[2020-12-27] MEDS ORDERED: LEVALBUTEROL 1.25 MG/3 ML NEB ONE (17:15)
[2020-12-27] MEDS ORDERED: METHYLPREDNISOLONE 125 MG INJ ONE (17:15)
--- NOTE | 2020-12-27 17:20 | EDPHYS ---
Physician Documentation [facility] [place] Name: Angelo Narvaez Age: 65 yrs Sex: Male : 1955 Arrival Date: 12/27/2020 Time: 14:50 Bed 23 Private MD: ED Physician Nick Vegas HPI: 12/27 16:48 This 65 yrs old Male presents to ER via Wheelchair with complaints of afib, rn Shortness Of Breath. 16:48 This 65 yrs old Male presents to ER via Wheelchair with complaints of rn Shortness Of Breath. 16:48 The patient has shortness of breath at rest, with light activity. Onset: The rn symptoms/episode began/occurred 2 week(s) ago. Duration: The symptoms are intermittent. The patient's shortness of breath is aggravated by exertion, light activity, is alleviated by nothing. Associated signs and symptoms: Pertinent positives: non-productive cough, Pertinent negatives: chest pain, fever, hemoptysis, loss of consciousness. Severity of symptoms: At their worst the symptoms were moderate in the emergency department the symptoms are unchanged. The patient has experienced similar episodes in the past. The patient has not recently seen a physician. Historical: - Allergies: 15:00 Prednisone; ca1 - PMHx: 15:00 Atrial Fib; C-diff; COPD; Gout; HTN; kidney disease; Lung Cancer; Pneumothorax; ca1 Rheumatoid Arthritis; - PSHx: 15:00 Appendectomy; Lobectomy, Left upper lobe; ca1 - Immunization history:: Pneumococcal vaccine is up to date, Flu vaccine is up to date. - Social history:: Smoking status: Patient/guardian denies using tobacco, the patient reports quitting approximately 5 years ago. - Family history:: not pertinent. - Hospitalizations: : No recent hospitalization is reported. ROS: 16:48 Constitutional: Negative for fever, chills, and weight loss, Eyes: Negative for injury, rn pain, redness, and discharge, Neck: Negative for injury, pain, and swelling, Cardiovascular: Negative for chest pain Respiratory: Negative for pleuritic chest pain, Abdomen/GI: Negative for abdominal pain, nausea, vomiting, diarrhea, and constipation, Back: Negative for injury and pain, MS/Extremity: Negative for injury and deformity, Skin: Negative for injury, rash, and discoloration, Neuro: Negative for headache, numbness, tingling, and seizure. Exam: 16:48 Constitutional: This is a well developed, well nourished patient who is awake, alert, rn moderate tachypnea Head/Face: Normocephalic, atraumatic. ENT: Mucous membranes moist. NOstridor Cardiovascular: Irregular rhythm, regular rate Respiratory: + moderate tachypnea with diffuse wheezing Abdomen/GI: soft, non-tender Vital Signs: 15:00 BP 154 / 91; Pulse 92; Resp 22 S; Temp 97.8(TE); Pulse Ox 100% on 2 lpm NC; Weight ca1 58.97 kg (R); Height 5 ft. 5 in. (165.10 cm) (R); Pain 0/10; 15:49 BP 136 / 80; Pulse 96; Resp 24; Pulse Ox 96% 2 lpm ; dh4 17:16 BP 130 / 70; Pulse 88; Resp 17; Pulse Ox 99% on 2 lpm NC; dh4 19:29 BP 134 / 89; Pulse 102; Resp 22; Pulse Ox 98% on 2 lpm NC; zb 15:00 Body Mass Index 21.63 (58.97 kg, 165.10 cm) ca1 MDM: 15:02 Patient medically screened. rn 17:17 Differential diagnosis: Chronic Obstructive Pulmonary Disease pneumonia, Pneumothorax rn pulmonary edema, reactive airway disease. Data reviewed: vital signs, nurses notes, lab test result(s), EKG, radiologic studies, plain films, and as a result, I will admit patient. Counseling: I had a detailed discussion with the patient and/or guardian regarding: the historical points, exam findings, and any diagnostic results supporting the discharge/admit diagnosis, lab results, radiology results, the need for further work-up and treatment in the hospital. Response to treatment: the patient's symptoms have mildly improved after treatment, and as a result, I will admit patient. Admission orders: after a detailed discussion of the patient's condition and case, the admit orders are written by me. 12/27 15:14 Order name: PT-INR rn 12/27 15:14 Order name: Blood Culture Adult (2) rn 12/27 15:14 Order name: BMP; Complete Time: 17: rn 12/27 15:14 Order name: CBC with Diff; Complete Time: : rn 12/27 15:14 Order name: Magnesium; Complete Time: 17:09 rn 12/27 15:14 Order name: NT PRO-BNP; Complete Time: 17:09 rn 12/27 15:14 Order name: XRAY Chest (1 view); Complete Time: 16:01 rn 12/27 15:14 Order name: Ptt, Activated; Complete Time: 17:09 rn 12/27 15:14 Order name: Troponin (emerg Dept Use Only); Complete Time: 17:09 rn 12/27 15:15 Order name: Protime (+INR); Complete Time: 17:09 EDMS 12/27 16:02 Order name: Manual Differential; Complete Time: 17:09 EDMS 12/27 19:11 Order name: SARS-COV-2 RT PCR EDNY 12/27 15:14 Order name: EKG; Complete Time: 15:15 rn 12/27 15:14 Order name: Cardiac monitoring; Complete Time: 15:48 rn 12/27 15:14 Order name: EKG - Nurse/Tech; Complete Time: 15:48 rn 12/27 15:14 Order name: IV Saline Lock; Complete Time: 15:48 rn 12/27 15:14 Order name: Labs collected and sent; Complete Time: 15:48 rn 12/27 15:14 Order name: O2 Per Protocol; Complete Time: 15:48 rn 12/27 15:14 Order name: O2 Sat Monitoring; Complete Time: 15:48 rn Administered Medications: 17:11 Drug: Rocephin 1 grams Route: IV; Rate: calculated rate; Site: left antecubital; zb 18:49 Follow up: Response: No adverse reaction; IV Status: Completed infusion; IV Intake: 20mlzb 17:12 Drug: SOLU-Medrol 125 mg Route: IVP; Site: left antecubital; zb 18:49 Follow up: Response: No adverse reaction zb 17:12 Drug: Xopenex (3) 1.25 mg Route: Inhalation; zb 18:49 Follow up: Response: No adverse reaction; Marked relief of symptoms zb 18:48 Drug: Zithromax 500 mg Route: IVPB; Infused Over: 1 hrs; Site: left antecubital; zb 19:48 Follow up: Response: No adverse reaction; IV Status: Completed infusion; IV Intake: zb 250ml Disposition: 12/27/20 17:19 Hospitalization ordered by Danial Wilkins for Inpatient Admission. Preliminary diagnosis are Chronic obstructive pulmonary disease with (acute) exacerbation, Unspecified atrial fibrillation, Dyspnea, unspecified. - Bed requested for Telemetry/MedSurg (Inpatient). - Status is Inpatient Admission. sg - Condition is Stable. - Problem is an acute exacerbation. - Symptoms have improved. Signatures: Dispatcher [employer] EDMS Maycol Marino RN RN sg Nick Vegas MD MD rn Lasagna, Tonya, RN RN tl1 Diamond Arreola RN RN [facility] Kate Heller RN RN zb Corrections: (The following items were deleted from the chart) 19:21 17:19 Hospitalization Ordered by Danial Wilkins MD for Inpatient Admission. Preliminary tl1 diagnosis is Chronic obstructive pulmonary disease with (acute) exacerbation; Unspecified atrial fibrillation; Dyspnea, unspecified. Bed requested for Telemetry/MedSurg (Inpatient). Status is Inpatient Admission. Condition is Stable. Problem is an acute exacerbation. Symptoms have improved. rn 20:51 19:21 12/27/2020 17:19 Hospitalization Ordered by Danial Wilkins MD for Inpatient sg Admission. Preliminary diagnosis is Chronic obstructive pulmonary disease with (acute) exacerbation; Unspecified atrial fibrillation; Dyspnea, unspecified. Bed requested for Telemetry/MedSurg (Inpatient). Status is Inpatient Admission. Condition is Stable. Problem is an acute exacerbation. Symptoms have improved. tl1
--- NOTE | 2020-12-27 17:20 | ER ---
Nurse's Notes [facility] Name: Angelo Narvaez Age: 65 yrs Sex: Male : 1955 Arrival Date: 12/27/2020 Time: 14:50 Bed 23 Private MD: Diagnosis: Chronic obstructive pulmonary disease with (acute) exacerbation;Unspecified atrial fibrillation;Dyspnea, unspecified Presentation: 12/27 14:56 Chief complaint: Patient states: SOB x 2 weeks., worse today. Around 0630 HR this ca1 morning 137, started sweating, then urinated on self. Happened 1030. Hx Lung Ca, COPD. On home O2 at 2LPM. Coronavirus screen: Client denies travel out of the [place] in the last 14 days. shortness of breath, Client presents with at least one sign or symptom that may indicate coronavirus-19. Standard/surgical mask placed on the client. Provider contacted for isolation considerations. Ebola Screen: Patient negative for fever greater than or equal to 101.5 degrees Fahrenheit, and additional compatible Ebola Virus Disease symptoms Patient denies exposure to infectious person. Patient denies travel to an Ebola-affected area in the 21 days before illness onset. No symptoms or risks identified at this time. Initial Sepsis Screen: Does the patient meet any 2 criteria? No. Patient's initial sepsis screen is negative. Does the patient have a suspected source of infection? No. Patient's initial sepsis screen is negative. Risk Assessment: Do you want to hurt yourself or someone else? Patient reports no desire to harm self or others. Onset of symptoms was December 27, 2020. 14:56 Acuity: STEPHIE 2 ca1 14:56 Method Of Arrival: Wheelchair ca1 Triage Assessment: 19:00 Respiratory: Onset: The symptoms/episode began/occurred 2 weeks . zb Historical: - Allergies: 15:00 Prednisone; ca1 - PMHx: 15:00 Atrial Fib; C-diff; COPD; Gout; HTN; kidney disease; Lung Cancer; Pneumothorax; ca1 Rheumatoid Arthritis; - PSHx: 15:00 Appendectomy; Lobectomy, Left upper lobe; ca1 - Immunization history:: Pneumococcal vaccine is up to date, Flu vaccine is up to date. - Social history:: Smoking status: Patient/guardian denies using tobacco, the patient reports quitting approximately 5 years ago. - Family history:: not pertinent. - Hospitalizations: : No recent hospitalization is reported. Screenin:33 Abuse screen: Denies threats or abuse. Denies injuries from another. Nutritional zb screening: No deficits noted. Tuberculosis screening: No symptoms or risk factors identified. Fall Risk None identified. Assessment: 15:06 Reassessment: ECP at bedside. zb 15:15 General: Appears in no apparent distress. comfortable, Behavior is calm, cooperative, zb appropriate for age, Reports fatigue for >3 days. Pain: Complains of pain in xyphoid area and mid-sternal area Pain does not radiate. Pain currently is 4 out of 10 on a pain scale. Quality of pain is described as pressure. Neuro: Level of Consciousness is awake, alert, obeys commands, Oriented to person, place, time, situation. Cardiovascular: Reports chest pain, fatigue, shortness of breath, Capillary refill < 3 seconds Patient's skin is warm and dry. Pulses are all present. Rhythm is sinus rhythm. Respiratory: Reports shortness of breath cough that is productive, persistent Airway is patent Trachea midline Respiratory effort is labored, Respiratory pattern is tachypnea Breath sounds with rhonchi Breath sounds with wheezes the patient has moderate shortness of breath. GI: Abdomen is round non-distended, Bowel sounds present X 4 quads. : No signs and/or symptoms were reported regarding the genitourinary system. EENT: Derm: Skin is intact, is healthy with good turgor, Skin is dry, Skin is pale, Skin temperature is warm. Musculoskeletal: Range of motion: intact in all extremities. 16:00 Reassessment: Patient appears in no apparent distress at this time. Patient and/or zb family updated on plan of care and expected duration. Pain level reassessed. no changes at this time. patient states chest pain has decreased to about 2-3/10. 17:00 Reassessment: Patient appears in no apparent distress at this time. Patient and/or zb family updated on plan of care and expected duration. Pain level reassessed. neb tx infusing at this time. patient appears to be breathing better. 18:00 Reassessment: Patient appears in no apparent distress at this time. Patient and/or zb family updated on plan of care and expected duration. Pain level reassessed. Patient is alert, oriented x 3, equal unlabored respirations, skin warm/dry/pink. wheezing has decreased patient remains short of breath. 18:50 Reassessment: patient states that he would like something to eat notified ECP. zb 19:28 Reassessment: Patient appears in no apparent distress at this time. Patient and/or zb family updated on plan of care and expected duration. Pain level reassessed. Patient is alert, oriented x 3, equal unlabored respirations, skin warm/dry/pink. notified patient that his is being transferred to a room. Vital Signs: 15:00 BP 154 / 91; Pulse 92; Resp 22 S; Temp 97.8(TE); Pulse Ox 100% on 2 lpm NC; Weight ca1 58.97 kg (R); Height 5 ft. 5 in. (165.10 cm) (R); Pain 0/10; 15:49 BP 136 / 80; Pulse 96; Resp 24; Pulse Ox 96% 2 lpm ; dh4 17:16 BP 130 / 70; Pulse 88; Resp 17; Pulse Ox 99% on 2 lpm NC; dh4 19:29 BP 134 / 89; Pulse 102; Resp 22; Pulse Ox 98% on 2 lpm NC; zb 15:00 Body Mass Index 21.63 (58.97 kg, 165.10 cm) ca1 ED Course: 14:50 Patient arrived in ED. as 14:59 Triage completed. ca1 15:00 Arm band placed on right wrist. ca1 15:01 Nick Vegas MD is Attending Physician. rn 15:05 Kate Heller RN is Primary Nurse. zb 15:46 XRAY Chest (1 view) In Process Unspecified. EDMS 15:49 Inserted saline lock: 20 gauge in left antecubital area, using aseptic technique. dh4 17:18 Danial Wilkins MD is Hospitalizing Provider. rn 19:27 Patient has correct armband on for positive identification. marketing project lead on. Pulse zb ox on. NIBP on. Door closed. Noise minimized. 20:00 No provider procedures requiring assistance completed. Patient admitted, IV remains in zb place. Administered Medications: 17:11 Drug: Rocephin 1 grams Route: IV; Rate: calculated rate; Site: left antecubital; zb 18:49 Follow up: Response: No adverse reaction; IV Status: Completed infusion; IV Intake: 20mlzb 17:12 Drug: SOLU-Medrol 125 mg Route: IVP; Site: left antecubital; zb 18:49 Follow up: Response: No adverse reaction zb 17:12 Drug: Xopenex (3) 1.25 mg Route: Inhalation; zb 18:49 Follow up: Response: No adverse reaction; Marked relief of symptoms zb 18:48 Drug: Zithromax 500 mg Route: IVPB; Infused Over: 1 hrs; Site: left antecubital; zb 19:48 Follow up: Response: No adverse reaction; IV Status: Completed infusion; IV Intake: zb 250ml Intake: 18:49 IV: 20ml; Total: 20ml. zb 19:48 IV: 250ml; Total: 270ml. zb Outcome: 17:19 Decision to Hospitalize by Provider. rn 20:03 Admitted to Med/surg accompanied by tech, via stretcher, room 231, with chart, Report sg called to NIK Marroquin 20:03 Condition: stable 20:03 Instructed on the need for admit, safety practices, Demonstrated understanding of instructions, follow-up care. 20:51 Patient left the ED. sg Signatures: Dispatcher [employer] EDMS Maycol Marino RN RN sg Martinez, Amelia as Nieto, Roman, MD MD rn Acob, Cheryl, RN RN [facility] Terrence Chiu [facility] Kate Heller RN RN zb Corrections: (The following items were deleted from the chart) 15:06 14:56 Coronavirus screen: Client denies travel out of the [place] in the last 14 days. ca1 shortness of breath, Client presents with at least one sign or symptom that may indicate coronavirus-19. Standard/surgical mask placed on the client. Provider contacted for isolation considerations. ca1 18:49 18:49 Response: No adverse reaction; IV Intake: 20ml zb zb
[2020-12-27] MEDS ORDERED: NA CHLORIDE 0.9% 250 ML ONE (18:58)
[2020-12-27] MEDS ORDERED: AZITHROMYCIN 500 MG INJ IVPB ONE (18:58)
[2020-12-27] MEDS ORDERED: MAGNESIUM CITRATE 300 ML BOT ONE (19:29)
[2020-12-27] MEDS ORDERED: ALBUTEROL 2.5 MG/3 ML NEB SOL NEB PRN (20:41)
[2020-12-27] MEDS ORDERED: ONDANSETRON 4 MG/2 ML VIAL IV PRN (20:41)
[2020-12-27] MEDS ORDERED: IPRATROPIUM BROM 0.5MG/2.5ML NEB PRN (20:41)
[2020-12-27] MEDS ORDERED: ACETAMINOPHEN 500 MG TAB PO PRN (20:41)
[2020-12-27 21:23] VITALS: BMI 21.6
[2020-12-28] MEDS: METHYLPREDNISOLONE 40 MG INJ IV SCH ×2 (01:57→09:54)
--- NOTE | 2020-12-28 05:38 | EKG ---
Test Date: 2020-12-27 Test Time: 15:14:16 Production Control Technologist: TREVOR MEASUREMENT RESULTS: Intervals: Rate: 92 NV: 136 QRSD: 114 QT: 386 QTc: 477 Cornelius: P: 83 NV: 136 QRS: 65 T: 68 INTERPRETIVE STATEMENTS: Normal sinus rhythm Right bundle branch block Cannot rule out Anteroseptal infarct, age undetermined Abnormal ECG Compared to ECG 10/30/2020 23:02:10 Right bundle-branch block now present Incomplete right bundle-branch block no longer present Myocardial infarct finding still present Electronically Signed On 12-28-20 05:35:32 INSULATION PACKER by Nasir Bailey
[2020-12-28 05:44] LABS: Absolute Lymphocytes (CBC) 0.2 K/uL (0.7-4.9); Basophils % 0.4 % (0-1.3); Hematocrit 24.4 % (39.6-49.0); Lymphocytes % 2.8 % (15.3-44.8); MPV 7.8 fL (7.6-11.3); RBC Red Blood Cell Count 2.75 M/uL (4.33-5.43)
[2020-12-28 06:09] LABS: Potassium 5.2 mmol/L (3.5-5.1)
[2020-12-28] MEDS ORDERED: Levofloxacin500mg IV 500 MG/100 ML BAG IV SCH (07:00)
[2020-12-28 07:08] LABS: Anisocytosis 1+; Blood Morphology Comment NOTED (NOT SEEN); Platelet Estimate ADEQ
[2020-12-28] MEDS ORDERED: GABAPENTIN 300 MG CAP PO PRN (11:20)
[2020-12-28] MEDS ORDERED: DIPHENHYDRAMINE PO PRN (11:20)
[2020-12-28] MEDS ORDERED: ACETAMINOPHEN PO PRN (11:20)
[2020-12-28] MEDS ORDERED: CYCLOBENZAPRINE 10 MG TAB PO PRN (11:20)
[2020-12-28] MEDS ORDERED: [UNRECOGNIZED DRUG - OTHER] PO PRN (11:20)
[2020-12-28] MEDS ORDERED: DIPHENHYDRAMINE 25 MG TAB/CAP PO PRN (11:52)
[2020-12-28] MEDS ORDERED: ACETAMINOPHEN 500 MG TAB PO PRN (11:53)
[2020-12-28] MEDS ORDERED: NA CHLORIDE 0.9% 250 ML ONE (12:00)
[2020-12-28] MEDS ORDERED: FUROSEMIDE 40 MG/4 ML VIAL IV ONE (13:05)
--- NOTE | 2020-12-28 13:27 | P.CNS ---
Date of Consult: 12/28/20 Reason for Consult: Shortness of breath Chief Complaint: Shortness of breath History of Present Illness: Patient is 65 years of age with a history of terminal COPD admitted with acute dyspnea his suddenly got worse is been compliant with his medication denies any fever or chills patient does take 1 mg of Decadron at home denies any history of GI bleeding feels better since he got more steroids Allergies prednisone Adverse Reaction (Severe, Verified 12/27/20 20:48) Shortness of breath Home Medications: Acetaminophen/Diphenhydramine [Tylenol Pm Ex-Strength Caplet] 2 tab PO BEDTIME PRN 07/07/20 Aspirin Chewable [Aspirin Chewable*] 81 mg PO DAILY 07/07/20 Cholecalciferol (Vitamin D3) [Vitamin D3] 2,000 unit PO DAILY 07/07/20 Cyclobenzaprine [Flexeril*] 5 mg PO BEDTIME PRN 07/07/20 Folic Acid 3 mg PO DAILY 07/07/20 Gabapentin [Neurontin*] 300 mg PO BID PRN 07/07/20 Magnesium Oxide [Magnesium] 400 mg PO DAILY 07/07/20 Multivitamin with Minerals [One Daily Plus Minerals] 1 tab PO DAILY 07/07/20 allopurinoL [Zyloprim*] 100 mg PO BEDTIME 07/07/20 Simvastatin 20 mg PO BEDTIME 07/25/20 Calcium Carbonate [Tums Regular*] 1,000 mg PO DAILY #30 tab 07/28/20 L.acidoph,Paracasei, B.lactis [Probiotic] 1 each PO DAILY 08/03/20 Leflunomide 20 mg PO BEDTIME 08/03/20 Apixaban [Eliquis] 5 mg PO BID 30 Days #60 tablet 08/05/20 Spironolactone [Aldactone*] 25 mg PO DAILY #30 tab 08/05/20 dexAMETHasone [Dexamethasone] 1 mg PO DAILY 10/22/20 Ferrous Sulfate [Ferrous Sulfate*] 325 mg PO DAILY #30 tab 11/06/20 Furosemide [Lasix] 40 mg PO DAILY #33 tab 11/06/20 Levothyroxine [Synthroid*] 0.1 mg PO [id number] #30 tab 11/06/20 Metoprolol Succinate [Toprol Xl*] 100 mg PO BID 6AM 6PM #60 tab 11/06/20 Ipratropium Neb [Atrovent*] 0.5 mg NEB BID 12/28/20 Vancomycin Oral Soln [Vancocin HCl*] 5 ml PO T,TH,S 12/28/20 - Past Medical/Surgical History Diabetic: No -: Hypertension -: COPD -: Atrial fibrillation on chronic anticoagulation therapy -: Lung cancer(does not know which type) -: Gout -: Chronic diastolic congestive heart failure -: Chronic kidney disease stage 4 -: Iron deficiency anemia -: Hypothyroidism -: left upper lung lobectomy with lymph node resection -: appendectomy -: tonsillectomy Psychosocial/ Personal History: . Currently lives at home with his - Family History Father Medical History: Heart disease, Hypertension Notes: at 75 yo Mother Medical History: Cancer Notes: no medical history, still living Brother Medical History: Hypertension, Cancer Notes: melanoma Sister Medical History: Other (see notes) Notes: fibromyalgia - Social History Alcohol use: No CD- Drugs: No Caffeine use: Yes Place of Residence: Home Review of Systems 10-point ROS is otherwise unremarkable General: Weakness Respiratory: Cough, Shortness of Breath Physical Examination Temp Pulse Resp BP Pulse Ox 97.5 F 107 H 17 177/77 H 96 12/28/20 12:00 12/28/20 12:00 12/28/20 12:00 12/28/20 12:00 12/28/20 12:00 General: Alert, Oriented x3 Respiratory: Diminished, Expiratory wheezes Cardiovascular: No edema, Normal S1 S2 Gastrointestinal: Normal bowel sounds, Soft and benign Laboratory Data (last 24 hrs) 12/27/20 15:45: WBC 13.20 H, Hgb 9.2 L, Hct 27.7 L, Plt Count 304 12/27/20 15:45: Sodium 141, Potassium 4.6, BUN 37 H, Creatinine 2.03 H, Glucose 84, Magnesium 2.0 12/27/20 15:45: PT 14.1 H, INR 1.22, APTT 34.0 - Problems (1) COPD exacerbation Onset Date: 04/27/18 Current Visit: No Status: Acute Plan: Patient is 65 years of age with terminal COPD admitted with an exacerbation he does state Decadron at home in niece to provided with more steroids during the exacerbation chemistries reviewed is mildly hyperkalemia could renal function has improved blood pressure is mildly elevated of ordered a serum procalcitonin Dc levofloxacin he has C difficile diarrhea as been taking vancomycin possible discharge tomorrow repeat PA lateral chest x-ray mildly anemic denies any history of hematemesis of melenic stools seen by nephrology this is getting IV Lasix change to IV Decadron possible discharge tomorrow on Decadron 2-4 mg once a twice a day pending up on his status his oxygenation is satisfactory Bashir avoid antibiotic
--- NOTE | 2020-12-28 13:48 | CON ---
Date of Consultation: 12/28/2020 Reason For Consultation: Elevated BUN and creatinine, fluid management. History Of Present Illness: This is a 65-year-old gentleman, well known to me from the office, with significant past medical history of chronic kidney disease stage 3B secondary to cardiorenal, baseline creatinine 1.8, last seen 1 month ago in the office, maintained on Lasix 40 mg daily, spironolactone 25 mg, hypertension, hyperlipidemia, COPD, lung cancer, congestive heart failure, the patient recently admitted to the hospital with C diff colitis treated. The patient seen in the office in mid November. At that time, we decreased the spironolactone 25 mg and continued on the Lasix 40 mg. Apparently after the weather change and loss of electricity, the patient started having some shortness of breath and cough without any sputum. The patient called Pulmonary, started on antibiotics. The patient's shortness of breath got worse. For that reason, reported to the hospital, found to have questionable of right-sided pneumonia. Past Medical History: Includes; 1. Advanced COPD. 2. Lung cancer. 3. Coronary artery disease complicated with congestive heart failure. 4. Chronic kidney disease, stage 3B secondary to cardiorenal, baseline creatinine 1.8, GFR of 30. Allergies: NO KNOWN DRUG ALLERGIES. Social History: Ex-smoker. Denied alcohol. Denied drug abuse. Family History: Positive for hypertension. Past Surgical History: Includes bronchoscopy, lobectomy, appendectomy. Review of Systems: Head and neck: No red eye. No ear pain. GI: No nausea. No vomiting. : No polyuria. No dysuria. No hematuria. Audio Production Instructor: Not applicable. Respiratory: Has shortness of breath. Has cough. Cardiovascular: No chest pain. Endocrine: No polydipsia. Skin: No rash. Neuro: Has weakness. Musculoskeletal: Generalized fatigue. Physical Examination: General: When I saw the patient the patient sitting in the bed with shortness of breath. Vital Signs: Blood pressure of 189/70, pulse of 88. Chest: Crackles bilateral, more prominent on the right side. Heart: S1, S2. Systolic murmur. Abdomen: Soft, nontender. Extremity: Plus edema, more on the ankle, nothing on the araujo. Neurologic: Alert. No focality. Laboratory Data: WBC 8.1, H and H 7.9/24. Sodium 142, potassium 5.2, bicarb 24, BUN 40, creatinine 2, GFR 33, calcium 8.3. Back in November; creatinine 1.7, GFR 38. Current Medications: In the hospital include diphenhydramine, Levaquin, calcium carbonate, atorvastatin, metoprolol, spironolactone, gabapentin, Lasix, ipratropium, folic acid, levothyroxine, loperamide, allopurinol, cholecalciferol. Assessment And Plan: 1. Chronic kidney disease, stage 3B, close to baseline, over volume. I am going to go ahead and change his Lasix to IV. We will give another dose of Lasix after the transfusion also. We will monitor the patient. 2. Marginal hyperkalemia secondary to spironolactone. Continue spironolactone. Increase Lasix and we will monitor. Place the patient on a low-salt diet, low K diet. 3. Respiratory failure, possible secondary to over volume, supported with elevation in BNP and the chest x-ray finding. We will optimize fluid status with diuresis. 4. Hypertension, utilize blood pressure for more diuresis. I am going to place the patient on nitroglycerin patch. Continue spironolactone. Switch Lasix to IV. 5. Chronic obstructive pulmonary disease, advanced, as by Pulmonary. Thank you Dr. Wilkins for allowing us to participate in the care of your patient. Time spent discussing with the patient, examining the patient, exam [id number], placing order, discussing with staff and other consulting include Primary 65 minutes. HARPAL Voice ID: [id number] Report ID: [id number] MOON
[2020-12-28] MEDS ORDERED: ALBUTEROL 2.5 MG/3 ML NEB SOL NEB PRN (15:00)
[2020-12-28] MEDS ORDERED: IPRATROPIUM BROM 0.5MG/2.5ML NEB PRN (15:00)
[2020-12-28] MEDS: CALCIUM CARBONATE CHEW 500MG TAB PO SCH (15:05)
--- NOTE | 2020-12-28 16:43 | RAD REPORT ---
EXAM DESCRIPTION: Dorothy Pa And Lat (2 Views)12/28/2020 4:23 pm CLINICAL HISTORY: Cough COMPARISON: December 27, 2020 FINDINGS: [id number] right reticulonodular opacities are mildly improved. Left lung appears clear of acute infiltrate. Left lung volume loss. Heart is normal size IMPRESSION: Mild improvement in right reticulonodular opacities which may indicate an atypical pneum onia
[2020-12-28] MEDS: METOPROLOL XL 100 MG TAB PO SCH (17:24)
[2020-12-28] MEDS ORDERED: METOPROLOL TARTRATE 5 MG/5 ML INJ IV STA (17:40)
[2020-12-28] MEDS: METOPROLOL TARTRATE 5 MG/5 ML INJ IV ONE ×2 (17:41→17:54)
--- NOTE | 2020-12-28 17:54 | PN ---
Date of Progress Note: 12/28/2020 Subjective: When seen today, patient seems more comfortable with his breathing and he said that has improved significantly since he has been admitted. There is some question of diagnosis with his slig ht haziness, change on chest x-ray, questionable acute onset of a pneumonia versus his chronic inters titial changes. In any event, he was placed on IV antibiotics. However, the issue here is whether o r not this will compromise his system in general as he has been struggling with C. diff for a number of weeks now and has been on vancomycin p.o., was only 3 doses left on the originally prescribed medi cation. The other problem is that his troponin has been at baseline as well. However, he was seen b y Cardiology a couple of days ago. Apparently cleared of any significant changes at that time. He a lso talked to a roofing apprentice a couple of days ago as well and will have him see the patient while he is in the hospital. The other issue is his renal function, which has been decreased and has been fo llowed by Nephrology. They will also see him while he is in the hospital. His hemoglobin has dipped somewhat, last admission was only 4 to 6 weeks ago. He also received 1 unit. I think it would be a ppropriate to give another unit at this time. We will continue to monitor his cardiac, pulmonary, an d renal status, as well as his C. diff and determine the best course. He has been diagnosed with ter ricky COPD and has been on multiple antibiotics over the past years for this. Also has an immune def iciency and is on medication for this as well. HR/MODL Voice ID: [id number] Report ID: [id number]
[2020-12-28] MEDS: APIXABAN 5 MG TABLET PO SCH (18:08)
[2020-12-28 18:10] LABS: Hematocrit 30.3 % (39.6-49.0)
--- NOTE | 2020-12-28 19:09 | HP ---
Date of Admission: 12/27/2020 Chief Complaint: Short of breath. History Of Present Illness: The patient has a long history of COPD with acute exacerbations and in f act has been diagnosed with end-stage COPD. States over the past few days, his breathing has become increasingly labored and that when he presented to the emergency room, he was definitely dyspneic com pared to what has been in the past few weeks. Past Medical History: As above. The patient also has history of RA, CAD, both of which have been un edwar relatively good control as of late and also diagnosed with C. diff a number weeks ago and has bee n on treatment for this as well. The patient has had numerous medication changes in relationship to his renal function with the addition of spironolactone a couple of weeks ago. He has been on Lasix a s well and he also has a history of atrial fibrillation and is possibly contributing to the GI proble m. They thought perhaps it was bleeding from this area. However, he had an EGD a number of weeks ag o and this did not show any active bleeding site. Social History: Nonsmoker. Nondrinker. Family History: Noncontributory. Physical Examination: General: The patient is an elderly male with stable vital signs and no acute distress. Head and Neck: Normocephalic. Pupils equal and reactive to light and accommodation. Fundi negative . Trachea midline. Thyroid not palpable. ENT: Negative. Cardiovascular: PMI midclavicular line. Heart: Sounds normal. Peripheral pulses present and equal bilaterally. Chest: Clear to P and A. Abdomen: No organomegaly. Bowel sounds present. Extremities: Moderately dehydrated. Good tone bilaterally. Reflexes physiologic. Rectal: Deferred. Impression: Acute exacerbation of chronic obstructive pulmonary disease, possible pneumonitis, coron heidy artery disease, atrial fibrillation, rheumatoid arthritis. Plan: The patient will be admitted, placed on IV steroids, inhalation therapy. Continue his usual m edication while monitoring his cardiac and pulmonary and renal status. HR/MODL Voice ID: [id number]
[2020-12-28] MEDS: allopurinoL 100 MG TAB PO SCH (21:00)
[2020-12-28] MEDS ORDERED: HOME MED 1 EA UNK (Simvastatin [Simvastatin] 20 MG Tablet) PO SCH (21:00)
[2020-12-28] MEDS: dexAMETHasone 4 MG/ML VIAL IV SCH (21:04)
[2020-12-28] MEDS: ATORVASTATIN 10 MG TAB PO SCH (21:05)
[2020-12-29] MEDS: LEVOTHYROXINE SOD 0.1 MG TAB PO SCH (05:47)
[2020-12-29] MEDS: METOPROLOL XL 100 MG TAB PO SCH ×2 (05:47→17:02)
[2020-12-29 06:12] LABS: Albumin 2.8 g/dL (3.4-5.0); Magnesium 2.4 mg/dL (1.8-2.4); Phosphorus 3.7 mg/dL (2.5-4.9); Potassium 4.8 mmol/L (3.5-5.1); Troponin I 0.03 ng/mL (0.0-0.045)
[2020-12-29] MEDS ORDERED: FUROSEMIDE 40 MG TABLET PO SCH (09:00)
[2020-12-29] MEDS ORDERED: SPIRONOLACTONE 25 MG TABLET PO SCH (09:00)
[2020-12-29] MEDS ORDERED: NITROGLYCERIN 0.4 MG/HR (10 MG) PATCH TD SCH (09:00)
[2020-12-29] MEDS: FOLIC ACID 1 MG TABLET PO SCH (09:40)
[2020-12-29] MEDS: FUROSEMIDE 40 MG/4 ML VIAL IV SCH (09:40)
[2020-12-29] MEDS: dexAMETHasone 4 MG/ML VIAL IV SCH ×2 (09:40→20:44)
[2020-12-29] MEDS: VITAMIN D 1000 UNIT TAB PO SCH (09:41)
[2020-12-29] MEDS: LACTOBACILLUS/ACIDOPHILUS TAB PO SCH (09:41)
[2020-12-29] MEDS: ASPIRIN 81 MG CHEWABLE TABLET PO SCH (09:41)
[2020-12-29] MEDS: MULTIVIT W/ MINERAL TAB PO SCH (09:41)
[2020-12-29] MEDS: CALCIUM CARBONATE CHEW 500MG TAB PO SCH (09:41)
[2020-12-29] MEDS: APIXABAN 5 MG TABLET PO SCH ×2 (09:41→20:43)
--- NOTE | 2020-12-29 10:40 | P.PN ---
Subjective Date of Service: 12/29/20 Chief Complaint: Shortness of breath Subjective A 64 Y/o man with PMHx of CKD IIIb/IV baseline Cr 2.2-2.4 , COPD, CHF on lasix and aldacotne , HTN , Afib and HX of remote Lunf Ca Pt presented with SOB Today feels better edema much improved will dc Aldactone as K was 5.2 yesterday Physical exam general: AAOX3, NAD , Neck; Supple, No elevated JVD hear: RRR, normal S1,2 no murmur or rub Chest: decreased air entry , wheezes Abdomen: Soft , Nt Extremities trace edema A/P CKD IIIb/IV possibly ATN Cr baseline 2.2-2.4 , Cont lasix renal dose meds anemia of chronic disease will check iron stores COPD cont inhalers and steroids pulmonary on board HX of CHF cont lasix will hold aldactone Total time spent 45min Physical Examination - Vital Signs Temperature: 97.1 F Blood Pressure: 179/79 Pulse: 85 Respirations: 24 Pulse Ox (%): 98
--- NOTE | 2020-12-29 11:11 | P.PN ---
Subjective Date of Service: 12/29/20 Chief Complaint: Shortness of breath Subjective: Improving (Patient is doing better his history of AFib the pressure is little elevated) Review of Systems General: Weakness Respiratory: Shortness of Breath Physical Examination - Vital Signs Temperature: 97.1 F Blood Pressure: 179/79 Pulse: 85 Respirations: 24 Pulse Ox (%): 98 - Physical Exam General: Alert, Oriented x3, Mild distress Respiratory: Clear to auscultation bilaterally, Diminished Assessment & Plan - Problems (Diagnosis) (1) COPD exacerbation Onset Date: 04/27/18 Current Visit: No Status: Acute Plan: Patient is doing better out infection avoid antibiotic pro calcitonin is only borderline elevated patient's blood cultures are negative renal function slightly worse due to Lasix vital signs are stable in normal sinus rhythm recommend discharge home resume all his home medication he is to take Decadron 4 mg twice a day for a week then 2 mg twice a day for a week and then drop it down to 1 or 2 mg once a day white all antibiotics he is taking vancomycin p.o. for EC difficile patient has had Pseudomonas isolated in the sputum
[2020-12-29 15:21] LABS: C.diff Antigen/Toxin Ag neg : Tox neg (NEG : NEG)
[2020-12-29] MEDS: ATORVASTATIN 10 MG TAB PO SCH (20:43)
[2020-12-29] MEDS: allopurinoL 100 MG TAB PO SCH (20:44)
[2020-12-29] MEDS ORDERED: carvediloL 6.25 MG TAB PO SCH (21:00)
[2020-12-30] MEDS: METOPROLOL XL 100 MG TAB PO SCH ×2 (05:35→18:50)
[2020-12-30] MEDS: LEVOTHYROXINE SOD 0.1 MG TAB PO SCH (05:36)
[2020-12-30 06:06] LABS: Albumin 2.8 g/dL (3.4-5.0); Magnesium 2.1 mg/dL (1.8-2.4); Phosphorus 4.2 mg/dL (2.5-4.9); Potassium 4.6 mmol/L (3.5-5.1)
[2020-12-30 06:57] LABS: Transferrin 265 mg/dL (200-360)
[2020-12-30 06:58] LABS: Folic Acid, (Folate) > 20.0 ng/mL (3.1-17.5)
[2020-12-30] MEDS: LACTOBACILLUS/ACIDOPHILUS TAB PO SCH (08:48)
[2020-12-30] MEDS: MULTIVIT W/ MINERAL TAB PO SCH (08:48)
[2020-12-30] MEDS: APIXABAN 5 MG TABLET PO SCH ×2 (08:48→20:24)
[2020-12-30] MEDS: ASPIRIN 81 MG CHEWABLE TABLET PO SCH (08:48)
[2020-12-30] MEDS: FOLIC ACID 1 MG TABLET PO SCH (08:49)
[2020-12-30] MEDS: FUROSEMIDE 40 MG/4 ML VIAL IV SCH (08:49)
[2020-12-30] MEDS: dexAMETHasone 4 MG/ML VIAL IV SCH ×2 (08:49→20:23)
[2020-12-30] MEDS: VITAMIN D 1000 UNIT TAB PO SCH (08:57)
[2020-12-30] MEDS: CALCIUM CARBONATE CHEW 500MG TAB PO SCH (08:57)
[2020-12-30] MEDS: METOPROLOL TARTRATE 5 MG/5 ML INJ IV SCH ×2 (15:16→15:32)
[2020-12-30] MEDS: allopurinoL 100 MG TAB PO SCH (20:23)
[2020-12-30] MEDS: ATORVASTATIN 10 MG TAB PO SCH (20:24)
--- NOTE | 2020-12-31 01:42 | PN ---
Date of Progress Note: 12/30/2020 Chief Complaint: Acute on chronic kidney injury, fluid overload, congestive heart failure, cardioren al syndrome. History Of Present Illness: The patient has history of atrial fibrillation, hypertensive heart and k idney disease. He is on Lasix and Aldactone for congestive heart failure. Potassium level was up to 5.2. Aldactone level was stopped. The patient has history of acute kidney injury and during this a dmission, renal function has declined. The patient likely has acute tubular necrosis. He has nonoli guric urine output. Review of Systems: Denies PND or orthopnea. Physical Examination: Lungs: Diminished breath sounds at bases. Heart: S1, S2. Abdomen: Soft, benign. Extremities: Trace edema. Impression And Plan: 1.Chronic kidney disease 3B/4, accelerated by acute tubular necrosis. Baseline creatinine 2.2 to 2. 4. Continue Lasix. Currently, spironolactone is on hold due to hyperkalemia. Monitor potassium lev el. 2.Anemia of chronic kidney disease. Monitor iron study. The patient may be a candidate for SHONDA. 3.Chronic obstructive pulmonary disease exacerbation. Continue inhalers and steroids. 4.History of congestive heart failure. Continue diuretics and low-sodium diet. EB/MODL Voice ID: [id number] Report ID: [id number]
[2020-12-31] MEDS: METOPROLOL XL 100 MG TAB PO SCH (05:51)
[2020-12-31] MEDS: LEVOTHYROXINE SOD 0.1 MG TAB PO SCH (05:52)
[2020-12-31 05:57] LABS: Albumin 2.9 g/dL (3.4-5.0); Magnesium 2.3 mg/dL (1.8-2.4); Phosphorus 4.6 mg/dL (2.5-4.9); Potassium 4.3 mmol/L (3.5-5.1)
--- NOTE | 2020-12-31 06:06 | CON ---
Date of Consultation: 12/29/2020 The patient was admitted to Dr. Wilkins. Reason For Consultation: Atrial fibrillation. History Of Present Illness: Mr. Narvaez is a 65-year-old male. He is very well known to me from of fice visits from the past. He has multiple medical problems including COPD. He is on home oxygen. He also has a history of lung cancer, status post left upper lobe lobectomy. He has a history of rhe umatoid arthritis, gout, hypertension, COPD, paroxysmal atrial fibrillation. He came in with an atyp ical pneumonia. He was supposed to be on metoprolol and Eliquis at home. His metoprolol was not giv en that day and later that evening he went into rapid atrial fibrillation. He is back in sinus rhyth m after metoprolol was given. He was also hypertensive at 180/87. His blood pressure is improved no w. He was symptomatic from his atrial fibrillation with palpitation, but denied any chest pain, naus ea, vomiting, diaphoresis, PND, orthopnea, pedal edema. He denied any syncope. Past Medical History: As stated above. Allergies: PREDNISONE. Medications At Home: Metoprolol, Eliquis, aspirin, Lipitor, Synthroid, Aldactone, Lasix. Review of Systems: Negative. Social History: Negative. Family History: Noncontributory. Physical Examination: General: By the time I saw him, he was in sinus rhythm. He is on oxygen. Vital Signs: Stable, afebrile. HEENT: Negative. Neck: Supple with no bruit. Chest: Clear. CARDIAC: Revealed sinus rhythm, regular rhythm. No murmurs, gallops, or rubs. Abdomen: Benign. Extremities: Revealed no clubbing, cyanosis, or edema. Diagnostic Data: Of value is for his EKG now shows sinus rhythm. Chest x-ray showed atypical pneumo gemini. BNP was 10,418. Creatinine is 2.23.. Hemoglobin is 9.7. Impression And Plan: 1.Paroxysmal atrial fibrillation, resolved after metoprolol. He should be on metoprolol and Eliquis . We can give him an extra IV metoprolol or IV digoxin x1 if he goes back in it. 2.Chronic obstructive pulmonary disease, on home oxygen with atypical pneumonia, on antibiotics. He is also on Trelegy. He also has a history of lung cancer, status post left upper lobe lobectomy. 3.Rheumatoid arthritis. 4.Gout. 5.Hypertension, poorly controlled. Hopefully, this will improve after restarting the beta-hannah. I will continue to follow him. No change in therapy for now. 6.Mr. Narvaez did have significant anemia, and he did receive 1 unit of blood. His last hemoglobin was 10. He has a creatinine of 2.23. Nephrology is following. ENRIQUE/RYAN Voice ID: [id number] Report ID: [id number]
--- NOTE | 2020-12-31 06:12 | PN ---
Date of Progress Note: 12/30/2020 Mr. Narvaez was seen for atrial fibrillation. He had been here for COPD exacerbation. He is on blanca e O2. He has had paroxysmal atrial fibrillation in the past for which he takes Eliquis. He is also on metoprolol. He has a history of dyslipidemia, hypothyroidism, anemia, gout, lung cancer, rheumato id arthritis. He is status post left upper lobe lobectomy. He is here with an atypical pneumonia as well. His beta-blockers were initially held in the hospital, so he went into atrial fibrillation. After the metoprolol had been given, he has remained in sinus rhythm. He is still in sinus rhythm to day. His last hemoglobin was 10. Last creatinine is 2.23. Renal is following. No change in medica l therapy. Continue metoprolol and Eliquis. I will see him as needed. ENRIQUE/RYAN Voice ID: [id number] Report ID: [id number]
--- NOTE | 2020-12-31 07:30 | EKG ---
Test Date: 2020-12-30 Test Time: 14:13:20 Fashion Patternmaker: ENDER MEASUREMENT RESULTS: Intervals: Rate: 148 VA: QRSD: 114 QT: 278 QTc: 436 [place]: P: VA: QRS: -85 T: 33 INTERPRETIVE STATEMENTS: Atrial fibrillation with rapid ventricular response with premature ventricular or aberrantly conducted complexes Left anterior fascicular block Nonspecific ST abnormality, probably digitalis effect Abnormal ECG Compared to ECG 12/27/2020 15:14:16 Ventricular premature complex(es) now present Left anterior fascicular block now present ST (T wave) deviation now present Sinus rhythm no longer present Right bundle-branch block no longer present Myocardial infarct finding no longer present Electronically Signed On 12-31-20 07:30:04 TRUCKMAN by Nasir Bailey
--- NOTE | 2020-12-31 08:03 | P.PN ---
Subjective Date of Service: 12/29/20 Patient with no significant changes. Still a little tachypneic and short of breath. Overall he appears to be getting back to his baseline. Anticipate discharge over the next 24 hr Review of Systems 10-point ROS is otherwise unremarkable Physical Examination - Vital Signs Temperature: 97.7 F Blood Pressure: 140/70 Pulse: 76 Respirations: 19 Pulse Ox (%): 97 - Physical Exam General: Alert, In no apparent distress, Oriented x3 Respiratory: Expiratory wheezes Cardiovascular: Regular rate/rhythm, Normal S1 S2 Gastrointestinal: Normal bowel sounds, Soft and benign, Non-distended, No tenderness Musculoskeletal: No clubbing, No tenderness, Swelling Integumentary: No rashes - Studies Medications List Reviewed: Yes Assessment & Plan - Problems (Diagnosis) (1) Acute on chronic anemia Current Visit: No Status: Acute (2) Acute on chronic diastolic heart failure Current Visit: No Status: Acute (3) COPD exacerbation Onset Date: 04/27/18 Current Visit: No Status: Acute (4) Status post lobectomy of lung Current Visit: No Status: Acute (5) Atrial fibrillation Current Visit: No Status: Chronic Qualifiers: Atrial fibrillation type: chronic (6) Chronic anticoagulation Current Visit: No Status: Chronic (7) Chronic renal disease Current Visit: No Status: Chronic Qualifiers: Chronic kidney disease stage: stage 3 (moderate) (8) History of lung cancer Onset Date: 04/27/18 Current Visit: No Status: Chronic (9) Hypertension Current Visit: No Status: Chronic Qualifiers: Hypertension type: essential hypertension Qualified Code(s): I10 - Essential (primary) hypertension (10) Oxygen dependent Current Visit: No Status: Chronic (11) CHF (congestive heart failure) Current Visit: No Status: Suspected Qualifiers: Heart failure type: diastolic Heart failure chronicity: acute on chronic Qualified Code(s): I50.33 - Acute on chronic diastolic (congestive) heart fa ilure (12) Respiratory failure Current Visit: No Status: Resolved Qualifiers: Chronicity: acute - Plan Plan: 1. Continue with albuterol and Atrovent nebs 2. Continue with IV steroids 3. Outpatient pulmonary function testing 4. Pulmonary follow-up 5. Room air O2 sats-patient already has home oxygen 6. Repeat chest x-ray in the morning 7. GI and DVT prophylaxis Discharge Plan: Home Plan to discharge in: 48 Hours - Advance Directives Does patient have a Living Will: No Does patient have a Durable POA for Healthcare: No - Code Status/Comfort Care Code Status Assessed: Yes Code Status: Full Code Critical Care: No Time Spent Managing PTS Care (In Minutes): 30
--- NOTE | 2020-12-31 08:06 | P.PN ---
Date of Service: 12/30/20 Subjective Patient was to be discharged however nephrology wanted to wait until a.m.. Anticipate discharge in the morning Review of Systems 10-point ROS is otherwise unremarkable Physical Examination - Vital Signs Reviewed - Physical Exam General: Alert, In no apparent distress, Oriented x3 Respiratory: Expiratory wheezes Cardiovascular: Regular rate/rhythm, Normal S1 S2 Gastrointestinal: Normal bowel sounds, Soft and benign, Non-distended, No tenderness Musculoskeletal: No clubbing, No tenderness, Swelling Integumentary: No rashes Assessment & Plan - Problems (Diagnosis) (1) Acute on chronic anemia Current Visit: No Status: Acute (2) Acute on chronic diastolic heart failure Current Visit: No Status: Acute (3) COPD exacerbation Onset Date: 04/27/18 Current Visit: No Status: Acute (4) Status post lobectomy of lung Current Visit: No Status: Acute (5) Atrial fibrillation Current Visit: No Status: Chronic Qualifiers: Atrial fibrillation type: chronic (6) Chronic anticoagulation Current Visit: No Status: Chronic (7) Chronic renal disease Current Visit: No Status: Chronic Qualifiers: Chronic kidney disease stage: stage 3 (moderate) (8) History of lung cancer Onset Date: 04/27/18 Current Visit: No Status: Chronic (9) Hypertension Current Visit: No Status: Chronic Qualifiers: Hypertension type: essential hypertension Qualified Code(s): I10 - Essential (primary) hypertension (10) Oxygen dependent Current Visit: No Status: Chronic (11) CHF (congestive heart failure) Current Visit: No Status: Suspected Qualifiers: Heart failure type: diastolic Heart failure chronicity: acute on chronic Qualified Code(s): I50.33 - Acute on chronic diastolic (congestive) heart failure (12) Respiratory failure Current Visit: No Status: Resolved Qualifiers: Chronicity: acute - Plan Plan: Plan of care as mentioned below. Continue to monitor renal function. 1. Continue with albuterol and Atrovent nebs 2. Change to oral steroids and DC Aldactone. 3. Poor prognosis 4. Pulmonary follow-up 5. Room air O2 sats-patient already has home oxygen 6. Repeat chest x-ray in the morning 7. GI and DVT prophylaxis
[2020-12-31] MEDS: LACTOBACILLUS/ACIDOPHILUS TAB PO SCH (08:32)
[2020-12-31] MEDS: ASPIRIN 81 MG CHEWABLE TABLET PO SCH (08:32)
[2020-12-31] MEDS: MULTIVIT W/ MINERAL TAB PO SCH (08:33)
[2020-12-31] MEDS: VITAMIN D 1000 UNIT TAB PO SCH (08:33)
[2020-12-31] MEDS: APIXABAN 5 MG TABLET PO SCH (08:33)
[2020-12-31] MEDS: FOLIC ACID 1 MG TABLET PO SCH (08:33)
[2020-12-31 09:28] VITALS: O2SAT 99
[2020-12-31 11:41] LABS: Potassium 4.2 mmol/L (3.5-5.1)
[2020-12-31 11:43] LABS: Absolute Lymphocytes (CBC) 0.3 K/uL (0.7-4.9); Basophils % 0.2 % (0-1.3); Hematocrit 32.1 % (39.6-49.0); Lymphocytes % 4.7 % (15.3-44.8); RBC Red Blood Cell Count 3.67 M/uL (4.33-5.43)
[2020-12-31 13:17] VITALS: BP 179/83; TEMP 98.1
[2020-12-31] MEDS: CALCIUM CARBONATE CHEW 500MG TAB PO SCH (14:07)
--- NOTE | 2021-01-01 17:16 | EKG ---
Test Date: 2020-12-28 Test Time: 17:49:14 Silver Chaser: VICTOR M MEASUREMENT RESULTS: Intervals: Rate: 106 AL: 138 QRSD: 118 QT: 376 QTc: 499 [place]: P: 75 AL: 138 QRS: -69 T: 63 INTERPRETIVE STATEMENTS: Sinus tachycardia Left axis deviation Right bundle branch block Septal infarct, age undetermined Abnormal ECG Compared to ECG 12/27/2020 15:14:16 Left-axis deviation now present Sinus rhythm no longer present Myocardial infarct finding still present Electronically Signed On 01-01-21 17:07:07 [employer] FOUNDER AND CHAIRMAN by Nasir Bailey
--- NOTE | 2021-01-02 00:16 | PN ---
Date of Progress Note: 12/31/2020 Chief Complaint: Acute on chronic kidney injury, fluid overload, congestive heart failure, cardioren al syndrome. History Of Present Illness: The patient has history of atrial fibrillation, hypertensive heart and k idney disease, congestive heart failure. He was treated with Lasix and at this point, Aldactone was stopped because of borderline hyperkalemia, potassium was 5.21. Review of Systems: Denies PND or orthopnea Physical Examination: Lungs: Clear to auscultation bilaterally. Heart: S1, S2. Extremities: Trace edema. Impression And Plan: 1.Chronic kidney disease 3B/4, accelerated by acute tubular necrosis. Baseline creatinine 2.2 to 2. 4. Continue Lasix. Spironolactone will not be used due to hyperkalemia. 2.Anemia of chronic kidney disease. Monitor iron study. The patient may be a candidate for SHONDA. 3.Chronic obstructive pulmonary disease exacerbation. Continue inhalers and steroids. 4.History of congestive heart failure. Continue diuretics and low-sodium diet. EB/MODL Voice ID: [id number] Report ID: [id number]
--- NOTE | 2021-01-11 17:33 | P.DS ---
Discharge Date: 12/31/20 Disposition: ROUTINE DISCHARGE Discharge Condition: GOOD Reason for Admission: Shortness of breath Consultations: Pulmonary Nephrology - Problems (1) Acute on chronic anemia Status: Acute (2) Acute on chronic diastolic heart failure Status: Acute (3) COPD exacerbation Onset Date: 04/27/18 Status: Acute (4) Status post lobectomy of lung Status: Acute (5) Atrial fibrillation Status: Chronic Qualifiers: Atrial fibrillation type: chronic (6) Chronic anticoagulation Status: Chronic (7) Chronic renal disease Status: Chronic Qualifiers: Chronic kidney disease stage: stage 3 (moderate) (8) History of lung cancer Onset Date: 04/27/18 Status: Chronic (9) Hypertension Status: Chronic Qualifiers: Hypertension type: essential hypertension Qualified Code(s): I10 - Essential (primary) hypertension (10) Oxygen dependent Status: Chronic (11) CHF (congestive heart failure) Status: Suspected Qualifiers: Heart failure type: diastolic Heart failure chronicity: acute on chronic Qualified Code(s): I50.33 - Acute on chronic diastolic (congestive) heart failure (12) Respiratory failure Status: Resolved Qualifiers: Chronicity: acute Brief History of Present Illness: Patient is a 65-year-old gentleman who came to the hospital with a COPD exacerbation. Patient has a history of COPD and was started on nebs, steroids, and antibiotics. Patient was admitted to the hospital because his respiratory status has worsened over the last few days. He was admitted by his PCP. Hospital Course: Patient clinically doing well with no new complaints. Patient respiratory status has improved. Patient renal function is stable. At this time, patient is stable for discharge home. Vital Signs/Physical Exam: Temp Pulse Resp BP Pulse Ox 98.1 F 56 18 179/83 H 99 12/31/20 12:00 12/31/20 12:00 12/31/20 12:00 12/31/20 12:00 12/31/20 12:00 General: Alert, In no apparent distress, Oriented x3 Laboratory Data at Discharge: WBC 6.80 K/uL (4.3-10.9) D 12/31/20 11:09 Hgb 10.4 g/dL (13.6-17.9) L 12/31/20 11:09 Hct 32.1 % (39.6-49.0) L 12/31/20 11:09 Plt Count 278 K/uL (152-406) 12/31/20 11:09 PT 14.1 SECONDS (9.5-12.5) H 12/27/20 15:45 INR 1.22 12/27/20 15:45 APTT 34.0 SECONDS (24.3-36.9) 12/27/20 15:45 Sodium 141 mmol/L (136-145) 12/31/20 11:09 Potassium 4.2 mmol/L (3.5-5.1) 12/31/20 11:09 BUN 66 mg/dL (7-18) H 12/31/20 11:09 Creatinine 2.29 mg/dL (0.55-1.3) H 12/31/20 11:09 Glucose 86 mg/dL (74-106) 12/31/20 11:09 Phosphorus 4.6 mg/dL (2.5-4.9) 12/31/20 05:13 Magnesium 2.3 mg/dL (1.8-2.4) 12/31/20 05:13 Troponin I 0.03 ng/mL (0.0-0.045) 12/29/20 05:16 Home Medications: RX: Acetaminophen/Diphenhydramine [Tylenol Pm Ex-Strength Caplet] 2 tab PO BEDTIME PRN 07/07/20 RX: Aspirin Chewable [Aspirin Chewable*] 81 mg PO DAILY 07/07/20 RX: Cholecalciferol (Vitamin D3) [Vitamin D3] 2,000 unit PO DAILY 07/07/20 RX: Cyclobenzaprine [Flexeril*] 5 mg PO BEDTIME PRN 07/07/20 RX: Folic Acid 3 mg PO DAILY 07/07/20 RX: Gabapentin [Neurontin*] 300 mg PO BID PRN 07/07/20 RX: Magnesium Oxide [Magnesium] 400 mg PO DAILY 07/07/20 RX: Multivitamin with Minerals [One Daily Plus Minerals] 1 tab PO DAILY 07/07/20 RX: allopurinoL [Zyloprim*] 100 mg PO BEDTIME 07/07/20 RX: Simvastatin 20 mg PO BEDTIME 07/25/20 RX: Calcium Carbonate [Tums Regular*] 1,000 mg PO DAILY #30 tab 07/28/20 RX: L.acidoph,Paracasei, B.lactis [Probiotic] 1 each PO DAILY 08/03/20 RX: Leflunomide 20 mg PO BEDTIME 08/03/20 RX: Apixaban [Eliquis] 5 mg PO BID 30 Days #60 tablet 08/05/20 RX: dexAMETHasone [Dexamethasone] 1 mg PO DAILY 10/22/20 RX: Ferrous Sulfate [Ferrous Sulfate*] 325 mg PO DAILY #30 tab 11/06/20 RX: Furosemide [Lasix*] 40 mg PO DAILY #33 tab 11/06/20 RX: Levothyroxine [Synthroid*] 0.1 mg PO [id number] #30 tab 11/06/20 RX: Metoprolol Succinate [Toprol Xl*] 100 mg PO BID 6AM 6PM #60 tab 11/06/20 RX: Ipratropium Neb [Atrovent*] 0.5 mg NEB BID 12/28/20 RX: dexAMETHasone [Dexamethasone] 2 mg PO DAILY #50 tablet 12/31/20 New Medications: RX: dexAMETHasone [Dexamethasone] 2 mg PO DAILY #50 tablet Physician Discharge Instructions: OK TO DC IV AND DC HOME FOLLOW-UP WITH PCP AND PULMONARY IN 2 WEEKS RETURN TO THE ER IF SYMPTOMS WORSENS CALL DR. FERRARI AT [phone] IF ANY QUESTIONS REGARDING HOSPITAL STAY Diet: AHA Activity: Fall precautions Followup: Tomas Sawant MD [ACTIVE - CAN ADMIT] - Nasir Bailey MD [ACTIVE - CAN ADMIT] - Danial Wilkins MD [Primary Care Provider] - Time spent managing pt's care (in minutes): 35
== END 2020-12-31 15:44 | disposition home or self-care (01) | DRG 190 ==
LOC: ER 14:48 → ERHOLD 17:21 → 2ND 20:06
PROVIDERS: ADMIT Hospitalist; ATTEND Hospitalist
PROC: 30233N1 Transfusion of Nonautologous Red Blood Cells into Peripheral Vein, Percutaneous Approach (ICD-10-PCS; principal; 2020-12-28)
DX: J44.1 Chronic obstructive pulmonary disease with (acute) exacerbation (principal); N17.0 Acute kidney failure with tubular necrosis; J18.9 Pneumonia, unspecified organism; J96.00 Acute respiratory failure, unspecified whether with hypoxia or hypercapnia; I50.42 Chronic combined systolic (congestive) and diastolic (congestive) heart failure; I13.0 Hypertensive heart and chronic kidney disease with heart failure and stage 1 through stage 4 chronic kidney disease, or unspecified chronic kidney disease; N18.4 Chronic kidney disease, stage 4 (severe); M10.9 Gout, unspecified; Z88.8 Allergy status to other drugs, medicaments and biological substances; Z20.822 Contact with and (suspected) exposure to COVID-19; Z85.118 Personal history of other malignant neoplasm of bronchus and lung; Z90.49 Acquired absence of other specified parts of digestive tract; Z87.891 Personal history of nicotine dependence; Z79.01 Long term (current) use of anticoagulants; Z79.82 Long term (current) use of aspirin; Z79.890 Hormone replacement therapy; Z79.899 Other long term (current) drug therapy; E87.5 Hyperkalemia; E78.5 Hyperlipidemia, unspecified; I25.10 Atherosclerotic heart disease of native coronary artery without angina pectoris; M06.9 Rheumatoid arthritis, unspecified; D63.8 Anemia in other chronic diseases classified elsewhere; Z99.81 Dependence on supplemental oxygen; I48.0 Paroxysmal atrial fibrillation; J44.0 Chronic obstructive pulmonary disease with (acute) lower respiratory infection
CPT/HCPCS: 36415; 36430; 71045; 71046; 80048; 80069; 82607; 82728; 82746; 83540; 83735; 83880; 84145; 84466; 84484; 85014; 85018; 85025; 85610; 85730; 86850; 86900; 86901; 87040; 87324; 87449; 93005; 94760; 96365; 96366; 96375; 99285; J0456; J0696; J1100; J1940; J2405; J2920; J2930; J7050; P9016; U0003

== ENCOUNTER 2021-02-02 13:48 | Inpatient (IN) | payer BC, OTHER ==
[2021-02-02 15:58] LABS: Urine Blood Trace-lysed (Negative); Urine Glucose Negative (Negative); Urine Protein Negative (Negative)
--- NOTE | 2021-02-02 16:41 | RAD REPORT ---
EXAM DESCRIPTION: Dorothy Single View02/02/2021 4:19 pm CLINICAL HISTORY: Congestion COMPARISON: December 2020 FINDINGS: The lungs appear clear of acute infiltrate. The heart is normal size. Left volume loss un changed IMPRESSION: No acute abnormalities displayed
[2021-02-02 16:43] LABS: Urine Bacteria <20 /HPF (NONE SEEN); Urine RBC <5 /HPF (NONE SEEN)
[2021-02-02 16:53] LABS: Absolute Lymphocytes (CBC) 0.3 K/uL (0.7-4.9); Basophils % 0.5 % (0-1.3); Hematocrit 23.4 % (39.6-49.0); Lymphocytes % 3.7 % (15.3-44.8); MPV 8.1 fL (7.6-11.3); RBC Red Blood Cell Count 2.68 M/uL (4.33-5.43)
[2021-02-02 17:05] LABS: Protime INR 1.03
[2021-02-02 17:14] LABS: ALT/SGPT 20 U/L (12-78); AST/SGOT 27 U/L (15-37); Albumin 2.9 g/dL (3.4-5.0); Alkaline Phosphatase 42 U/L (45-117); Amylase 123 U/L (25-115); BUN Blood Urea Nitrogen 73 mg/dL (7-18); Bicarbonate 31 mmol/L (21-32); Bilirubin Direct < 0.1 mg/dL (0-0.2); Bilirubin Total 0.2 mg/dL (0.2-1.0); CKMB Creatine Kinase MB 1.2 ng/mL (0.3-3.6); Creatine Phosphokinase 120 U/L (39-308); Glucose Level 78 mg/dL (74-106); Lipase 206 U/L (73-393); Potassium 5.1 mmol/L (3.5-5.1); Protein, Total 6.7 g/dL (6.4-8.2); Sodium Level 139 mmol/L (136-145); Troponin (Emerg Dept Use Only) 0.15 ng/mL (0.0-0.045)
[2021-02-02] MEDS ORDERED: NA CHLORIDE 0.9% 1,000 ML ONE (17:19)
[2021-02-02] MEDS ORDERED: LEVALBUTEROL 1.25 MG/3 ML NEB ONE (17:19)
[2021-02-02] MEDS ORDERED: AZITHROMYCIN IV 500 MG in NA CHLORIDE 0.9% 250 ML IVPB ONE ×2 (18:00→19:02)
--- NOTE | 2021-02-02 18:12 | EDPHYS ---
Physician Documentation [facility] Name: Angelo Narvaez Age: 65 yrs Sex: Male : 1955 Arrival Date: 02/02/2021 Time: 13:59 Bed 8 Private MD: ED Physician Brenda Blackwood HPI: 02/02 15:29 This 65 yrs old Male presents to ER via Wheelchair with complaints of ma2 Shortness Of Breath. 15:29 The patient has shortness of breath at rest. Onset: The symptoms/episode began/occurred ma2 gradually, 2 day(s) ago. Associated signs and symptoms: Pertinent negatives: productive cough, fever, loss of consciousness, numbness in extremities. Severity of symptoms: At their worst the symptoms were moderate in the emergency department the symptoms are unchanged. The patient has not experienced similar symptoms in the past. Historical: - Allergies: 14:05 Prednisone; ca1 - PMHx: 14:05 Atrial Fib; C-diff; COPD; Gout; HTN; kidney disease; Lung Cancer; Pneumothorax; ca1 Rheumatoid Arthritis; - PSHx: 14:05 Appendectomy; Lobectomy, Left upper lobe; ca1 - Immunization history:: Client reports receiving the 2nd dose of the Covid vaccine, Client reports receiving the 1st dose of the Covid vaccine, January 2021 Flu vaccine is not up to date. - Social history:: Smoking status: Patient/guardian denies using tobacco, the patient reports quitting approximately 5 years ago, Patient/guardian denies using alcohol, street drugs, The patient lives with family. - Family history:: not pertinent. ROS: 15:29 Constitutional: Negative for fever, chills, and weight loss. ma2 15:29 All other systems are negative. Exam: 15:29 Constitutional: This is a well developed, well nourished patient who is awake, alert, ma2 and in no acute distress. ENT: Nares patent. No nasal discharge, no septal abnormalities noted. Tympanic membranes are normal and external auditory canals are clear. Oropharynx with no redness, swelling, or masses, exudates, or evidence of obstruction, uvula midline. Mucous membranes moist. Neck: Trachea midline, no thyromegaly or masses palpated, and no cervical lymphadenopathy. Supple, full range of motion without nuchal rigidity, or vertebral point tenderness. No Meningismus. Chest/axilla: Normal chest wall appearance and motion. Nontender with no deformity. No lesions are appreciated. Cardiovascular: Regular rate and rhythm with a normal S1 and S2. No gallops, murmurs, or rubs. Normal PMI, no JVD. No pulse deficits. Respiratory: expiratory wheez and rl field rales, and hypoxemia, o2 sats are 95 on 4L O2 via NC. Lungs have equal breath sounds bilaterally,mild increased work of breathing, no retractions or nasal flaring. Abdomen/GI: Soft, non-tender, with normal bowel sounds. No distension or tympany. No guarding or rebound. No evidence of tenderness throughout. Vital Signs: 14:00 BP 118 / 58; Pulse 92; Resp 24 S; Temp 98.2(TE); Pulse Ox 100% on 3 lpm NC; Weight ca1 58.97 kg (R); Height 5 ft. 5 in. (165.10 cm) (R); 15:30 BP 106 / 49; Pulse 91; Resp 22 S; Pulse Ox 100% on 2 lpm NC; jl7 16:00 BP 120 / 67; Pulse 91; Resp 21; Pulse Ox 95% ; jl7 17:00 BP 106 / 74; Pulse 107; Resp 23; Pulse Ox 98% on 2 lpm NC; jl7 17:10 Pulse 149; jl7 17:48 BP 98 / 69; Pulse 130; Resp 24; Pulse Ox 99% ; jl7 18:30 BP 91 / 72; Pulse 110; Resp 22; Pulse Ox 100% ; jl7 19:00 BP 97 / 69; Pulse 116; Resp 21; Pulse Ox 100% on 2 lpm NC; jl7 20:00 BP 93 / 57; Pulse 107; Resp 19; Pulse Ox 98% on 2 lpm NC; wh 14:00 Body Mass Index 21.63 (58.97 kg, 165.10 cm) ca1 MDM: 15:06 Patient medically screened. ma2 15:29 Differential diagnosis: Anxiety Reaction asthma, Bronchitis CHF exacerbation, Chronic ma2 Obstructive Pulmonary Disease reactive airway disease. 18:06 Data reviewed: vital signs, nurses notes. Counseling: I had a detailed discussion with ma2 the patient and/or guardian regarding: the historical points, exam findings, and any diagnostic results supporting the discharge/admit diagnosis, the presence of at least one elevated blood pressure reading (>120/80) during this emergency department visit, the need for further work-up and treatment in the hospital. 18:07 ED course: discussed with patient has ckd, with sharita and dehydration today, i hans talked with his she states he has not been drinking water last 2 days and not urinating. he is dehydrated clinically, troponin is elevated yet at baseline. he has anemia, will transfuse blood. patient also has cogh and increased o2 requirment '. 02/02 15:16 Order name: Amylase, Serum [facility] 02/02 15:16 Order name: Basic Metabolic Panel [facility] 02/02 15:16 Order name: Blood Culture Adult (2) [facility] 02/02 15:16 Order name: CBC with Diff [facility] 02/02 15:16 Order name: Ckmb [facility] 02/02 15:16 Order name: CPK [facility] 02/02 15:16 Order name: Lactate [facility] 02/02 15:16 Order name: LFT's [facility] 02/02 15:16 Order name: Lipase; Complete Time: 17:59 mi2 02/02 15:16 Order name: Procalcitonin; Complete Time: 17:50 mi2 02/02 15:16 Order name: Protime (+inr); Complete Time: 17:50 ma2 02/02 15:16 Order name: Ptt, Activated; Complete Time: 17:50 mi2 02/02 15:16 Order name: Troponin (emerg Dept Use Only); Complete Time: 17:59 mi2 02/02 15:16 Order name: Urine Microscopic Only; Complete Time: 17:00 mi2 02/02 15:17 Order name: Amylase; Complete Time: 17:59 EDMS 02/02 15:17 Order name: Basic Metabolic Panel; Complete Time: 17:59 EDMS 02/02 15:17 Order name: Blood Culture [facility] 02/02 15:17 Order name: CBC with Automated Diff; Complete Time: 17:00 EDMS 02/02 15:17 Order name: CKMB Creatine Kinase MB; Complete Time: 17:59 EDMS 02/02 15:17 Order name: Creatine Phosphokinase; Complete Time: 17:59 EDMS 02/02 15:17 Order name: Lactate; Complete Time: 17:50 EDMS 02/02 15:17 Order name: Liver (Hepatic) Function; Complete Time: 17:59 EDMS 02/02 15:58 Order name: Urine Dipstick-Ancillary ED[facility] 02/02 17:04 Order name: Bb Add On eb 02/02 17:04 Order name: T\T\S eb 02/02 17:05 Order name: Type and Screen EDMS 02/02 17:14 Order name: Packed RBC Leukored EDMS 02/02 17:57 Order name: SARS-COV-2 RT PCR; Complete Time: 17:59 EDMS 02/02 19:02 Order name: Basic Metabolic Panel EDMS 02/02 15:16 Order name: Chest Single View XRAY; Complete Time: 17:00 ma2 02/02 15:16 Order name: Accucheck; Complete Time: 18:54 ma2 02/02 15:16 Order name: Cardiac monitoring; Complete Time: 18:54 ma2 02/02 15:16 Order name: EKG - Nurse/Tech; Complete Time: 18:54 ma2 02/02 15:16 Order name: IV Saline Lock - Large Bore; Complete Time: 18:54 ma2 02/02 15:16 Order name: Labs collected and sent; Complete Time: 18:54 ma2 02/02 15:16 Order name: O2 Per Protocol; Complete Time: 18:54 ma2 02/02 15:16 Order name: O2 Sat Monitoring; Complete Time: 18:54 ma2 02/02 15:16 Order name: Urine Dipstick-Ancillary (obtain specimen); Complete Time: 16:49 ma2 02/02 19:02 Order name: Basic Metabolic Panel [facility] 02/02 19:02 Order name: Creatine Phosphokinase [facility] 02/02 19:02 Order name: Creatine Phosphokinase [facility] 02/02 19:02 Order name: Creatine Phosphokinase [facility] 02/02 19:02 Order name: Creatine Phosphokinase [facility] 02/02 19:02 Order name: Troponin I [facility] 02/02 19:02 Order name: Troponin I [facility] 02/02 19:02 Order name: Troponin I [facility] 02/02 19:03 Order name: Heart Healthy [facility] 02/02 19:03 Order name: EKG Electrocardiogram [facility] 02/02 19:03 Order name: EKG Electrocardiogram [facility] 02/02 19:03 Order name: CBC with Automated Diff [facility] 02/02 19:03 Order name: CBC with Automated Diff [facility] 02/02 19:03 Order name: Troponin I EDMS Administered Medications: 16:00 Drug: Xopenex 1.25 mg Route: Inhalation; [facility] 16:30 Follow up: Response: No adverse reaction jl7 16:30 Drug: NS 0.9% 1000 ml Route: IV; Rate: 1 bolus; Site: left wrist; jl7 17:30 Follow up: Response: No adverse reaction; IV Status: Completed infusion; IV Intake: jl7 1000ml 17:30 Drug: AZITHromycin 500 mg Route: IVPB; Infused Over: 1 hrs; Site: left wrist; jl7 18:30 Follow up: Response: No adverse reaction; IV Status: Completed infusion jl7 18:51 Drug: D5-NS 1000 ml Route: IV; Rate: 125 ml/hr; Site: left wrist; jl7 18:53 Follow up: Response: No adverse reaction; IV Status: Infusion continued upon admission jl7 18:52 Not Given (Physician Discretion): Dexamethasone 1 mg/kg IVP once; (not to exceed 40 mg) jl7 18:52 Not Given (Physician Discretion): Metoprolol 5 mg IVP once jl7 18:52 Drug: Decadron - Dexamethasone 10 mg Route: IVP; Site: left wrist; jl7 18:53 Follow up: Response: No adverse reaction [facility] Disposition: 02/02/21 18:11 Hospitalization ordered by Danial Wilkins for Inpatient Admission. Preliminary diagnosis are Anemia in other chronic diseases classified elsewhere, Dehydration - with SHARITA, Chronic obstructive pulmonary disease with (acute) exacerbation. - Bed requested for Telemetry/MedSurg (Inpatient). - Status is Inpatient Admission. rv - Condition is Stable. - Problem is new. - Symptoms are unchanged. Signatures: Dispatcher [employer] EDMS Duldey Morgan, DOT COMPLIANCE MANAGER-C DOT COMPLIANCE MANAGER-Cla1 Lizzie Javed, RN RN Angelina Donaldson RN RN jl7 Brenda Blackwood MD MD ma2 Froy Fuller RN RN rv Diamond Arreola RN RN ca1 Corrections: (The following items were deleted from the chart) 16:20 15:17 Head Brain Wo Cont+CT.RAD.BRZ ordered. EDMS EDMS 17:14 15:17 CORONAVIRUS+MR.LAB.BRZ ordered. EDMS EDMS 19:38 18:11 Hospitalization Ordered by Danial Wilkins MD for Inpatient Admission. Preliminary cg diagnosis is Anemia in other chronic diseases classified elsewhere; Dehydration - with SHARITA; Chronic obstructive pulmonary disease with (acute) exacerbation. Bed requested for Telemetry/MedSurg (Inpatient). Status is Inpatient Admission. Condition is Stable. Problem is new. Symptoms are unchanged. ma2 20:16 19:38 02/02/2021 18:11 Hospitalization Ordered by Danial Wilkins MD for Inpatient rv Admission. Preliminary diagnosis is Anemia in other chronic diseases classified elsewhere; Dehydration - with SHARITA; Chronic obstructive pulmonary disease with (acute) exacerbation. Bed requested for Telemetry/MedSurg (Inpatient). Status is Inpatient Admission. Condition is Stable. Problem is new. Symptoms are unchanged. cg
--- NOTE | 2021-02-02 18:12 | ER ---
Nurse's Notes [facility] Name: Angelo Narvaez Age: 65 yrs Sex: Male : 1955 Arrival Date: 02/02/2021 Time: 13:59 Bed 8 Private MD: Diagnosis: Anemia in other chronic diseases classified elsewhere;Dehydration-with SHARITA;Chronic obstructive pulmonary disease with (acute) exacerbation Presentation: 02/02 14:00 Chief complaint: Spouse and/or significant other states: He's been confused, he's pale, ca1 he's weak, he can't hold his urine or feces, he has no appetite, and worsening SOB. Started this morning. Coronavirus screen: Client denies travel out of the [place] in the last 14 days. At this time, the client does not indicate any symptoms associated with coronavirus-19. Ebola Screen: Patient negative for fever greater than or equal to 101.5 degrees Fahrenheit, and additional compatible Ebola Virus Disease symptoms Patient denies exposure to infectious person. Patient denies travel to an Ebola-affected area in the 21 days before illness onset. No symptoms or risks identified at this time. Initial Sepsis Screen: Does the patient meet any 2 criteria? No. Patient's initial sepsis screen is negative. Does the patient have a suspected source of infection? No. Patient's initial sepsis screen is negative. Risk Assessment: Do you want to hurt yourself or someone else? Patient reports no desire to harm self or others. Onset of symptoms was February 02, 2021. 14:00 Method Of Arrival: Wheelchair ca1 14:00 Acuity: STEPHIE 3 ca1 Triage Assessment: 19:15 Respiratory: Reports shortness of breath Onset: The symptoms/episode began/occurred wh gradually, the patient has mild shortness of breath. Historical: - Allergies: 14:05 Prednisone; ca1 - PMHx: 14:05 Atrial Fib; C-diff; COPD; Gout; HTN; kidney disease; Lung Cancer; Pneumothorax; ca1 Rheumatoid Arthritis; - PSHx: 14:05 Appendectomy; Lobectomy, Left upper lobe; ca1 - Immunization history:: Client reports receiving the 2nd dose of the Covid vaccine, Client reports receiving the 1st dose of the Covid vaccine, January 2021 Flu vaccine is not up to date. - Social history:: Smoking status: Patient/guardian denies using tobacco, the patient reports quitting approximately 5 years ago, Patient/guardian denies using alcohol, street drugs, The patient lives with family. - Family history:: not pertinent. Screenin:30 Abuse screen: Denies threats or abuse. Denies injuries from another. Nutritional jl7 screening: No deficits noted. Tuberculosis screening: No symptoms or risk factors identified. Fall Risk IV access (20 points). Assessment: 15:30 General: Appears in no apparent distress. uncomfortable, Behavior is calm, cooperative, jl7 appropriate for age. Pain: Denies pain. Neuro: Level of Consciousness is awake, alert, obeys commands, Oriented to person, place, time, situation. Cardiovascular: Denies chest pain, Patient's skin is warm and dry. Rhythm is irregular. Respiratory: Airway is patent Respiratory effort is even, labored, Respiratory pattern is symmetrical, tachypnea. EENT: Oral mucosa is dry. Derm: Skin is dry, Skin is pale, Skin temperature is warm. 16:30 Reassessment: Patient appears in no apparent distress at this time. No changes from jl7 previously documented assessment. Patient and/or family updated on plan of care and expected duration. Pain level reassessed. Patient is alert, oriented x 3, equal unlabored respirations, skin warm/dry/pink. 17:15 Reassessment: Cardiac rhythm noted to be A.Fib at 149; EKG done, ERD notified, initial jl7 VO to administer 5 mg metoprolol IVP then VO to hold metoprolol until transfusion is administered. 18:30 Reassessment: Patient appears in no apparent distress at this time. No changes from jl7 previously documented assessment. Patient and/or family updated on plan of care and expected duration. Pain level reassessed. Patient is alert, oriented x 3, equal unlabored respirations, skin warm/dry/pink. 20:00 Reassessment: Patient appears in no apparent distress at this time. Patient and/or wh family updated on plan of care and expected duration. Pain level reassessed. Patient is alert, oriented x 3, equal unlabored respirations, skin warm/dry/pink. BT 1st unit PRBC started by Froy Fuller RN. Respiratory: Breath sounds are diminished bilaterally. 20:15 Reassessment: admitted patient with ongoing blood transfusion. rv Vital Signs: 14:00 BP 118 / 58; Pulse 92; Resp 24 S; Temp 98.2(TE); Pulse Ox 100% on 3 lpm NC; Weight ca1 58.97 kg (R); Height 5 ft. 5 in. (165.10 cm) (R); 15:30 BP 106 / 49; Pulse 91; Resp 22 S; Pulse Ox 100% on 2 lpm NC; jl7 16:00 BP 120 / 67; Pulse 91; Resp 21; Pulse Ox 95% ; jl7 17:00 BP 106 / 74; Pulse 107; Resp 23; Pulse Ox 98% on 2 lpm NC; jl7 17:10 Pulse 149; jl7 17:48 BP 98 / 69; Pulse 130; Resp 24; Pulse Ox 99% ; jl7 18:30 BP 91 / 72; Pulse 110; Resp 22; Pulse Ox 100% ; jl7 19:00 BP 97 / 69; Pulse 116; Resp 21; Pulse Ox 100% on 2 lpm NC; jl7 20:00 BP 93 / 57; Pulse 107; Resp 19; Pulse Ox 98% on 2 lpm NC; wh 14:00 Body Mass Index 21.63 (58.97 kg, 165.10 cm) ca1 ED Course: 13:59 Patient arrived in ED. as 14:04 Triage completed. ca1 14:05 Arm band placed on right wrist. ca1 15:06 Brenda Blackwood MD is Attending Physician. ma2 16:19 Chest Single View XRAY In Process Unspecified. EDMS 16:30 Patient has correct armband on for positive identification. Placed in gown. Bed in low jl7 position. Call light in reach. Side rails up X 1. manager of community relations on. Pulse ox on. NIBP on. Warm blanket given. 16:30 Initial lab(s) drawn, by me, sent to lab. EKG done, by ED staff, reviewed by Brenda Blackwood MD COVID swab sent to lab. Inserted saline lock: 22 gauge in left wrist, using aseptic technique. Blood collected. 16:43 Angelina Pacheco, NIK is Primary Nurse. jl7 17:15 EKG done, by ED staff, reviewed by Brenda Blackwood MD. jl7 17:25 T\T\S collected, blood band applied to patient. jl7 18:11 Danial Wilkins MD is Hospitalizing Provider. ma2 19:34 Inserted saline lock: 18 gauge in left forearm, using aseptic technique. rv 19:55 Primary Nurse role handed off by Angelina Pacheco RN 20:05 No provider procedures requiring assistance completed. Patient admitted, IV remains in place. 20:15 Froy Fuller RN is Primary Nurse. rv Administered Medications: 16:00 Drug: Xopenex 1.25 mg Route: Inhalation; jl7 16:30 Follow up: Response: No adverse reaction jl7 16:30 Drug: NS 0.9% 1000 ml Route: IV; Rate: 1 bolus; Site: left wrist; jl7 17:30 Follow up: Response: No adverse reaction; IV Status: Completed infusion; IV Intake: jl7 1000ml 17:30 Drug: AZITHromycin 500 mg Route: IVPB; Infused Over: 1 hrs; Site: left wrist; jl7 18:30 Follow up: Response: No adverse reaction; IV Status: Completed infusion jl7 18:51 Drug: D5-NS 1000 ml Route: IV; Rate: 125 ml/hr; Site: left wrist; jl7 18:53 Follow up: Response: No adverse reaction; IV Status: Infusion continued upon admission jl7 18:52 Not Given (Physician Discretion): Dexamethasone 1 mg/kg IVP once; (not to exceed 40 mg) jl7 18:52 Not Given (Physician Discretion): Metoprolol 5 mg IVP once jl7 18:52 Drug: Decadron - Dexamethasone 10 mg Route: IVP; Site: left wrist; jl7 18:53 Follow up: Response: No adverse reaction jl7 Intake: 17:30 IV: 1000ml; Total: 1000ml. jl7 Outcome: 18:11 Decision to Hospitalize by Provider. ma2 20:05 Admitted to Med/surg accompanied by nurse, via stretcher, room 217, with oxygen, with chart, Report called to Dseean Mcnair RN 20:05 Condition: stable 20:05 Instructed on the need for admit. 20:16 Patient left the ED. rv Signatures: Dispatcher [employer] EDMS Maycol Marino RN RN Nathalie Abbott Jahala, RN RN [facility] Mat Solitario RN RN Brenda Blackwood MD MD [facility] Jonny, Froy, RN RN rv Acob, Diamond, RN RN ca1
[2021-02-02] MEDS ORDERED: D5 0.45 NS 1,000 ML IV ONE (18:34)
[2021-02-02] MEDS ORDERED: dexAMETHasone 10 MG/ML VIAL ONE (19:01)
[2021-02-02] MEDS ORDERED: CEFTRIAXONE 1 GM/NS 50 ML 1 GM/50 ML BAG IV SCH (21:00)
[2021-02-02] MEDS ORDERED: NA CHLORIDE 0.9% 250 ML ONE (21:07)
[2021-02-02 22:26] VITALS: BMI 21.9
[2021-02-02] MEDS: INSULIN -REGULAR HUMAN 50 UNIT/0.5 ML ML SQ SCH (22:45)
[2021-02-02] MEDS: CEFTRIAXONE/SWI 1gm 1 GM/10 ML SYR IV SCH (22:58)
[2021-02-02] MEDS: METOPROLOL XL 100 MG TAB PO SCH (23:54)
[2021-02-02] MEDS: dexAMETHasone 4 MG/ML VIAL IV SCH (23:54)
[2021-02-03] MEDS ORDERED: INSULIN -REGULAR HUMAN 50 UNIT/0.5 ML ML SQ SCH
[2021-02-03] MEDS: IPRATROPIUM BROM 0.5MG/2.5ML NEB SCH ×4 (01:30→23:45)
[2021-02-03 01:45] LABS: Hematocrit 25.5 % (39.6-49.0)
[2021-02-03] MEDS: dexAMETHasone 4 MG/ML VIAL IV SCH (05:26)
[2021-02-03] MEDS ORDERED: METOPROLOL XL 100 MG TAB PO SCH (06:00)
[2021-02-03 06:54] LABS: Absolute Lymphocytes (CBC) 0.2 K/uL (0.7-4.9); Basophils % 0.4 % (0-1.3); Hematocrit 25.8 % (39.6-49.0); Lymphocytes % 4.6 % (15.3-44.8); MPV 8.1 fL (7.6-11.3); RBC Red Blood Cell Count 2.91 M/uL (4.33-5.43)
[2021-02-03 07:06] LABS: Potassium 5.3 mmol/L (3.5-5.1)
[2021-02-03] MEDS: INSULIN -REGULAR HUMAN 50 UNIT/0.5 ML ML SQ SCH ×4 (07:30→20:42)
[2021-02-03 08:46] LABS: Blood Morphology Comment NOT SEEN (NOT SEEN); Platelet Estimate ADEQ
[2021-02-03] MEDS: CEFTRIAXONE/SWI 1gm 1 GM/10 ML SYR IV SCH (08:56)
[2021-02-03] MEDS: METOPROLOL XL 100 MG TAB PO SCH ×2 (08:56→17:46)
[2021-02-03] MEDS ORDERED: FUROSEMIDE 40 MG TABLET PO SCH (09:00)
[2021-02-03] MEDS ORDERED: dexAMETHasone 4 MG/ML VIAL IV SCH (11:00)
--- NOTE | 2021-02-03 11:43 | P.CNS ---
Date of Consult: 02/03/21 Reason for Consult: Shortness of breath Chief Complaint: Shortness of breath and anemia History of Present Illness: Patient is a 65 years of age multiple medical problems heart failure COPD chronic renal failure admitted with worsening shortness of breath he has been taking steroids on on off chronic lower extremity edema seen by maintenance mechanic millwright also has some black tarry stools came in with anemia and was transfused still short of breath weeks Decadron at home chest x-rays clear Allergies prednisone Adverse Reaction (Severe, Verified 12/27/20 20:48) Shortness of breath Home Medications: Acetaminophen/Diphenhydramine [Tylenol Pm Ex-Strength Caplet] 2 tab PO BEDTIME PRN 07/07/20 Aspirin Chewable [Aspirin Chewable*] 81 mg PO DAILY 07/07/20 Cholecalciferol (Vitamin D3) [Vitamin D3] 2,000 unit PO DAILY 07/07/20 Cyclobenzaprine [Flexeril*] 5 mg PO BEDTIME PRN 07/07/20 Folic Acid 3 mg PO DAILY 07/07/20 Gabapentin [Neurontin*] 300 mg PO BIDP PRN 07/07/20 Magnesium Oxide [Magnesium] 500 mg PO DAILY 07/07/20 Multivitamin with Minerals [One Daily Plus Minerals] 1 tab PO DAILY 07/07/20 allopurinoL [Zyloprim*] 100 mg PO BEDTIME 07/07/20 Simvastatin 20 mg PO BEDTIME 07/25/20 Calcium Carbonate [Tums Regular*] 1,000 mg PO DAILY #30 tab 07/28/20 L.acidoph,Paracasei, B.lactis [Probiotic] 1 each PO DAILY 08/03/20 Leflunomide 20 mg PO BEDTIME 08/03/20 Apixaban [Eliquis] 5 mg PO BID 30 Days #60 tablet 08/05/20 dexAMETHasone [Dexamethasone] 1 mg PO DAILY 10/22/20 Ferrous Sulfate [Ferrous Sulfate*] 325 mg PO DAILY #30 tab 11/06/20 Furosemide [Lasix*] 40 mg PO DAILY #33 tab 11/06/20 Levothyroxine [Synthroid*] 0.1 mg PO [id number] #30 tab 11/06/20 Metoprolol Succinate [Toprol Xl*] 100 mg PO BID 6AM 6PM #60 tab 11/06/20 Ipratropium Neb [Atrovent*] 0.5 mg NEB BID 12/28/20 Acetaminophen [Tylenol Extra Strength] 2 tab PO BIDP PRN 02/02/21 Fluticasone/Umeclidin/Vilanter [Trelegy Ellipta 100-62.5-25] 1 puff IH DAILY 02/02/21 LORazepam [Ativan] 0.5 mg PO DAILYPRN PRN 02/02/21 Spironolactone 1 tab PO DAILY 02/02/21 - Past Medical/Surgical History Diabetic: No -: Hypertension -: COPD -: Atrial fibrillation on chronic anticoagulation therapy -: Lung cancer(does not know which type) -: Gout -: Chronic diastolic congestive heart failure -: Chronic kidney disease stage 4 -: Iron deficiency anemia -: Hypothyroidism -: left upper lung lobectomy with lymph node resection -: appendectomy -: tonsillectomy Psychosocial/ Personal History: . Currently lives at home with his - Family History Father Medical History: Heart disease, Hypertension Notes: at 75 yo Mother Medical History: Cancer Notes: no medical history, still living Brother Medical History: Hypertension, Cancer Notes: melanoma Sister Medical History: Other (see notes) Notes: fibromyalgia - Social History Alcohol use: No CD- Drugs: No Caffeine use: No Place of Residence: Home Review of Systems 10-point ROS is otherwise unremarkable General: Weakness Respiratory: Cough, Shortness of Breath Neurological: Weakness Physical Examination Temp Pulse Resp BP Pulse Ox 97.3 F 70 20 124/73 96 02/03/21 08:00 02/03/21 08:56 02/03/21 08:00 02/03/21 08:56 02/03/21 08:00 General: Alert, Oriented x3 Respiratory: Clear to auscultation bilaterally, Diminished Cardiovascular: Edema (2+) Gastrointestinal: Normal bowel sounds, Soft and benign Musculoskeletal: No clubbing, No contractures Neurological: Normal speech Laboratory Data (last 24 hrs) 02/02/21 16:37: PT 11.9, INR 1.03, APTT 28.8 02/02/21 16:37: WBC 9.10, Hgb 7.8 L*, Hct 23.4 L, Plt Count 259 02/02/21 16:37: Sodium 139, Potassium 5.1, BUN 73 H, Creatinine 4.36 H, Glucose 78, Total Bilirubin 0.2, AST 27, ALT 20, Alkaline Phosphatase 42 L, Amylase 123 H, Lipase 206 - Problems (1) COPD exacerbation Onset Date: 04/27/18 Current Visit: No Status: Acute Plan: Patient is 65 years of age admitted with COPD exacerbation also come having some GI bleeding black tarry stools recommend stopping his anticoagulation continue with bronchodilators low-dose steroid Consul GI chronic renal function no change mildly hyperkalemia vital signs stable oxygenation satisfactory
[2021-02-03] MEDS ORDERED: ACETAMINOPHEN 500 MG TAB PO PRN (11:44)
[2021-02-03] MEDS ORDERED: CYCLOBENZAPRINE 10 MG TAB PO PRN (11:44)
[2021-02-03] MEDS ORDERED: LORAZEPAM 0.5 MG TABLET PO PRN (11:44)
--- NOTE | 2021-02-03 12:17 | PN ---
Date of Progress Note: 02/03/2021 Subjective: The patient states he does feels somewhat better since he using , although he said he still has significant exertional dyspnea. The patient obviously has some multi-system diseas e starting with his GI tract and his melena, which has been a recurrent problem as well. However, hi s contributing factor is patient requires steroids for his COPD, blood thinners which he is now on El iquis for his paroxysmal atrial fib, and some drugs for his rheumatoid arthritis, who suggested that we hold the latter. He says he has been off for these in the past and he never refilled. About the Eliquis, we will discuss with Cardiology and the steroids as necessary over the dose. After discussi on with Dr. Sawant, will be decreased while he is here. He was slated for his some GI workup, arenas chris, should be done on an inpatient basis as he is high risk, was discussed this with Gastroenterolog y. Nephrology also saw last week, he said he was unhappy with his blood work. However, they want to repeat it since at that time he was asymptomatic. He has a chronic elevation of his creatinine in t he 4 range as well. We will add Protonix to the regimen, which he states he has been off for the pas t couple of weeks with no specific reason. We will continue to monitor while awaiting this specialis t evaluations. HR/MODL Voice ID: [id number] Report ID: [id number]
--- NOTE | 2021-02-03 13:37 | P.CNS ---
Date of Consult: 02/03/21 Reason for Consult: SHARITA on CKD Requesting Physician: Brenda Blackwood Chief Complaint: Shortness of breath and anemia History of Present Illness: Patient is a 65 year old man with past medical history of CKD stage IIIb-IV, baseline GFR of 29-30/min, CHF and COPDwho presented with worsening shortness of breath and increased blood or lower extremity edema and also complained of black tarry stools.he was admitted for severe anemia with GI bleed and was transfused with packed RBC. He also was admitted for COPD exacerbation. He also was found to have a TIA. His baseline's impression was 1.8-2.2 as of December 2020 and admitted with a serum creatinine of 4.4, and the somewhat improved to 4.07. Urine studies showed mild proteinuria. Urinalysis did not reveal any pyuria or hematuria. Allergies prednisone Adverse Reaction (Severe, Verified 12/27/20 20:48) Shortness of breath Home Medications: Acetaminophen/Diphenhydramine [Tylenol Pm Ex-Strength Caplet] 2 tab PO BEDTIME PRN 07/07/20 Aspirin Chewable [Aspirin Chewable*] 81 mg PO DAILY 07/07/20 Cholecalciferol (Vitamin D3) [Vitamin D3] 2,000 unit PO DAILY 07/07/20 Cyclobenzaprine [Flexeril*] 5 mg PO BEDTIME PRN 07/07/20 Folic Acid 3 mg PO DAILY 07/07/20 Gabapentin [Neurontin*] 300 mg PO BIDP PRN 07/07/20 Magnesium Oxide [Magnesium] 500 mg PO DAILY 07/07/20 Multivitamin with Minerals [One Daily Plus Minerals] 1 tab PO DAILY 07/07/20 allopurinoL [Zyloprim*] 100 mg PO BEDTIME 07/07/20 Simvastatin 20 mg PO BEDTIME 07/25/20 Calcium Carbonate [Tums Regular*] 1,000 mg PO DAILY #30 tab 07/28/20 L.acidoph,Paracasei, B.lactis [Probiotic] 1 each PO DAILY 08/03/20 Leflunomide 20 mg PO BEDTIME 08/03/20 Apixaban [Eliquis] 5 mg PO BID 30 Days #60 tablet 08/05/20 dexAMETHasone [Dexamethasone] 1 mg PO DAILY 10/22/20 Ferrous Sulfate [Ferrous Sulfate*] 325 mg PO DAILY #30 tab 11/06/20 Furosemide [Lasix*] 40 mg PO DAILY #33 tab 11/06/20 Levothyroxine [Synthroid*] 0.1 mg PO GTDOY0LC #30 tab 11/06/20 Metoprolol Succinate [Toprol Xl*] 100 mg PO BID 6AM 6PM #60 tab 11/06/20 Ipratropium Neb [Atrovent*] 0.5 mg NEB BID 12/28/20 Acetaminophen [Tylenol Extra Strength] 2 tab PO BIDP PRN 02/02/21 Fluticasone/Umeclidin/Vilanter [Trelegy Ellipta 100-62.5-25] 1 puff IH DAILY 02/02/21 LORazepam [Ativan] 0.5 mg PO DAILYPRN PRN 02/02/21 Spironolactone 1 tab PO DAILY 02/02/21 - Past Medical/Surgical History Diabetic: No -: Hypertension -: COPD -: Atrial fibrillation on chronic anticoagulation therapy -: Lung cancer(does not know which type) -: Gout -: Chronic diastolic congestive heart failure -: Chronic kidney disease stage 4 -: Iron deficiency anemia -: Hypothyroidism -: left upper lung lobectomy with lymph node resection -: appendectomy -: tonsillectomy Psychosocial/ Personal History: . Currently lives at home with his - Family History Father Medical History: Heart disease, Hypertension Notes: at 75 yo Mother Medical History: Cancer Notes: no medical history, still living Brother Medical History: Hypertension, Cancer Notes: melanoma Sister Medical History: Other (see notes) Notes: fibromyalgia - Social History Alcohol use: No CD- Drugs: No Caffeine use: No Place of Residence: Home Review of Systems General: Weakness Eyes: Unremarkable ENT: Unremarkable Respiratory: Shortness of Breath Cardiovascular: Edema Gastrointestinal: Melena Genitourinary: Unremarkable Musculoskeletal: Pedal edema Integumentary: Unremarkable Neurological: Weakness Lymphatics: Unremarkable Physical Examination Temp Pulse Resp BP Pulse Ox 97.3 F 70 20 124/73 96 02/03/21 08:00 02/03/21 08:56 02/03/21 08:00 02/03/21 08:56 02/03/21 08:00 General: In no apparent distress HEENT: Atraumatic, Normocephalic Neck: Without JVD or thyroid abnormality Respiratory: Inspiratory wheezes Cardiovascular: Edema Gastrointestinal: Soft and benign, Non-distended Musculoskeletal: Swelling Integumentary: Other (Normal temp) Neurological: Normal tone Lymphatics: No axilla or inguinal lymphadenopathy Urinary: Other (no bladder distention) External genitalia: Deferred Rectal: Deferred Laboratory Data (last 24 hrs) 02/02/21 16:37: PT 11.9, INR 1.03, APTT 28.8 02/02/21 16:37: WBC 9.10, Hgb 7.8 L*, Hct 23.4 L, Plt Count 259 02/02/21 16:37: Sodium 139, Potassium 5.1, BUN 73 H, Creatinine 4.36 H, Glucose 78, Total Bilirubin 0.2, AST 27, ALT 20, Alkaline Phosphatase 42 L, Amylase 123 H, Lipase 206 Conclusions/Impression: # SHARITA likely 2/2 acute cardiorenal syndrome & diuretic use has baseline CKD IIIB to 4 with baseline GFR of 29-38, equivalent baseline serum creatinine 1.8-2.2 follow-up Giulia Mew PCR, random urine sodium and urine urea Renal ultrasound unremarkable may give diuretics until respiratory status further improved Accurate weight daily Monitor renal panel and input and output # HyperK give Lasix 60 mg IV 1 Continue po Lasix recheck serum K tomorrow # COPD exacerbation Mngt per Pulmo service # CHF low-salt diet Diuretics as above Do not restrict free water intake as his serum sodiums have been normal
[2021-02-03] MEDS ORDERED: FUROSEMIDE 40 MG/4 ML VIAL IV STA (14:05)
[2021-02-03] MEDS ORDERED: GOLYTELY 4000 ML PO SCH (17:00)
[2021-02-03] MEDS: PANTOPRAZOLE 40MG TABLET PO SCH (17:46)
[2021-02-03 18:31] LABS: Absolute Lymphocytes (CBC) 0.4 K/uL (0.7-4.9); Basophils % 0.2 % (0-1.3); Hematocrit 28.2 % (39.6-49.0); Lymphocytes % 4.2 % (15.3-44.8); MPV 7.9 fL (7.6-11.3)
--- NOTE | 2021-02-03 19:31 | RAD REPORT ---
EXAM DESCRIPTION: US - Renal Ultrasound-Complete - 02/03/2021 7:02 pm CLINICAL HISTORY: Acute renal insufficiency COMPARISON: 2019 FINDINGS: The right kidney measures 9 cm with an increased echotexture. The left kidney measures 11 cm with an increased echotexture. 3.4 centimeter cyst Hydronephrosis is not seen. No gross abnormality of bladder is seen IMPRESSION: Increased renal echotexture consistent with parenchymal disease
[2021-02-03] MEDS ORDERED: HOME MED 1 EA UNK (Simvastatin [Simvastatin] 20 MG Tablet) PO SCH (21:00)
[2021-02-03] MEDS: dexAMETHasone 4 MG TAB PO SCH (21:01)
[2021-02-03] MEDS: ATORVASTATIN 10 MG TAB PO SCH (21:02)
[2021-02-03] MEDS: allopurinoL 100 MG TAB PO SCH (21:03)
[2021-02-04 04:24] LABS: Absolute Lymphocytes (CBC) 0.3 K/uL (0.7-4.9); Basophils % 0.2 % (0-1.3); Hematocrit 29.1 % (39.6-49.0); Lymphocytes % 2.9 % (15.3-44.8); MPV 8.5 fL (7.6-11.3); RBC Red Blood Cell Count 3.29 M/uL (4.33-5.43)
[2021-02-04 04:25] LABS: Potassium 3.8 mmol/L (3.5-5.1)
[2021-02-04 04:26] LABS: Troponin I 0.05 ng/mL (0.0-0.045)
[2021-02-04] MEDS: LEVOTHYROXINE SOD 0.1 MG TAB PO SCH (05:01)
[2021-02-04] MEDS: METOPROLOL XL 100 MG TAB PO SCH ×2 (05:02→17:12)
[2021-02-04] MEDS: INSULIN -REGULAR HUMAN 50 UNIT/0.5 ML ML SQ SCH ×4 (07:30→20:34)
[2021-02-04] MEDS: IPRATROPIUM BROM 0.5MG/2.5ML NEB SCH ×3 (07:35→23:45)
[2021-02-04] MEDS ORDERED: EPINEPHRINE/PF 1 MG/ML AMP ONE (08:12)
[2021-02-04] MEDS ORDERED: NA CHLORIDE 0.9% 500 ML ONE ×2 (08:13→09:42)
[2021-02-04] MEDS ORDERED: propofoL 200 MG/20 ML VIAL IV ONE (08:27)
[2021-02-04] MEDS ORDERED: LIDOCAINE 1% MPF 5 ML VIAL ONE (08:27)
[2021-02-04] MEDS ORDERED: FENTANYL CITR 100 MCG/2 ML ONE (08:27)
[2021-02-04] MEDS ORDERED: MIDAZOLAM HCL 2 MG/2 ML INJ ONE (08:27)
[2021-02-04] MEDS ORDERED: FUROSEMIDE 40 MG TABLET PO SCH (09:00)
[2021-02-04] MEDS: FERROUS SULFATE 325 MG TAB PO SCH (11:20)
[2021-02-04] MEDS: PANTOPRAZOLE 40MG TABLET PO SCH ×2 (11:20→17:12)
[2021-02-04] MEDS: dexAMETHasone 4 MG TAB PO SCH ×2 (11:21→20:30)
[2021-02-04] MEDS: SPIRONOLACTONE 25 MG TABLET PO SCH (11:21)
--- NOTE | 2021-02-04 14:53 | P.PN ---
Subjective Date of Service: 02/05/21 Chief Complaint: Shortness of breath and anemia Subjective: No new changes Physical Examination - Vital Signs Temperature: 97.3 F Blood Pressure: 163/80 Pulse: 88 Respirations: 20 Pulse Ox (%): 98 - Physical Exam General: In no apparent distress HEENT: Atraumatic, Normocephalic Neck: Supple, Without JVD or thyroid abnormality Respiratory: Clear to auscultation bilaterally Cardiovascular: No rubs, No murmurs Gastrointestinal: Soft and benign, Non-distended Musculoskeletal: Swelling Integumentary: Other (Normal temp) - Studies Microbiology Data (last 24 hrs): 02/02/21 16:28 Blood - Blood Anaerobic Blood Culture - Final Assessment And Plan - Plan # SHARITA likely 2/2 acute cardiorenal syndrome & diuretic use Has baseline CKD IIIB to 4 with baseline GFR of 29-38, equivalent baseline serum creatinine 1.8-2.2 Urinalysis no hematuria/pyuria/proteinuria Renal ultrasound unremarkable Accurate weight daily Monitor renal panel and input and output Cont diuretics as below # HyperK Resolved Continue po Lasix Monitor # COPD exacerbation Mngt per Pulmo service # CHF BNP high at 7900 Inc po lasix to 40 mg po bid low-salt diet Do not restrict free water intake as his serum sodiums have been normal
[2021-02-04] MEDS: GABAPENTIN 300 MG CAP PO PRN (17:14)
[2021-02-04 17:41] LABS: Absolute Lymphocytes (CBC) 0.2 K/uL (0.7-4.9); Basophils % 0.1 % (0-1.3); Hematocrit 28.4 % (39.6-49.0); Lymphocytes % 2.5 % (15.3-44.8); MPV 7.7 fL (7.6-11.3)
[2021-02-04 18:16] LABS: White Blood Cell Scan OK (OK)
[2021-02-04 18:17] LABS: Blood Morphology Comment NOT SEEN (NOT SEEN); Platelet Estimate ADEQ
[2021-02-04] MEDS: ATORVASTATIN 10 MG TAB PO SCH (20:25)
[2021-02-04] MEDS: allopurinoL 100 MG TAB PO SCH (20:27)
[2021-02-04] MEDS: FUROSEMIDE 40 MG TABLET PO SCH (20:29)
--- NOTE | 2021-02-04 20:38 | PN ---
Date of Progress Note: 02/04/2021 The patient underwent the EGD and colonoscopy today. His H and H have been stable as well as his vit al signs. The EGD revealed a rather large size duodenal ulcer, also noted was a hiatal hernia and a colonoscopy revealed hemorrhoids and skin tags. Undoubtedly, the recurrent problem with a low hemogl obin would be the ulceration and biopsies were taken. He is basically asymptomatic as far as the GI tract is concerned today. He is still rather sleepy when following the procedure. If in fact he is stable tomorrow, he may be able to be discharged on usual medication plus the addition of increasing dose of Protonix and dietary control. It is somewhat difficult if he has had steroid dependent COPD and atrial fib, both of which can lead to bleeding secondary to the ulcer. We will withhold the [facility] arthritis medicine at this time. HR/MODL Voice ID: [id number] Report ID: [id number]
--- NOTE | 2021-02-04 21:23 | HP ---
Date of Admission: 02/02/2021 Entrance Complaint: Shortness of breath. History Of Present Illness: The patient presented to the emergency room with complaints of significa nt increase in his dyspnea. The patient has a long history of this with severe COPD. He is admitted on numerous occasions. He states he was fine until the day before the presentation to the ER when h e began getting more short of breath than usual despite increasing his oxygen and therefore he presen jaiden to the emergency room. The only other symptom that he complained of was black stools and the pat ient had required transfusion on the last admission a couple of months ago. Past History: The patient has a long history of COPD, steroid dependent; history of atrial fibrillat ion and paroxysmal atrial fibrillation, on Eliquis; also has a recent history of C diff; history of h ypertension in relatively good control; gout; renal insufficiency; lung cancer with surgery; and rheu matoid arthritis, for which he is on a medication for; lung surgery was lobectomy of the left upper l obe. Social History: The patient states he has not smoked for the past 5 years. No history of alcohol in take. Family History: Noncontributory. Physical Examination: General: The patient is an obviously dyspneic male with a rather pale appearance. Vital Signs: Stable. Head and Neck: Normocephalic. Conjunctivae pale. ENT negative. Chest: High-pitched rhonchi throughout. Slight use of accessory muscles to breathe. Cardiovascular: PMI midclavicular line. Heart sounds normal. Peripheral pulses are present and equ al bilaterally. Abdomen: No organomegaly. Bowel sounds present. Extremities: Moderate dehydration. Good tone and movement bilaterally. Reflexes physiologic. Rectal: Deferred. Impression: Acute exacerbation of chronic obstructive pulmonary disease; anemia, acute on chronic; c ongestive heart failure; and possibility of an exacerbation of chronic atrial fibrillation, on medica tion. Plan: The patient will be admitted, placed on IV fluids until a blood transfusion can be given. The oxygen will be monitored, medication will be held as far as the Eliquis is concerned, steroids will be necessary at this time, and consultation will be obtained with both his pacs administrator, cardiologis t, and Renal. The latter showed increased creatinine from his baseline in the past few months. HR/MODL Voice ID: [id number]
[2021-02-04 22:38] LABS: Absolute Lymphocytes (CBC) 0.3 K/uL (0.7-4.9); Basophils % 0.3 % (0-1.3); Hematocrit 29.9 % (39.6-49.0); Lymphocytes % 2.9 % (15.3-44.8); MPV 7.9 fL (7.6-11.3); RBC Red Blood Cell Count 3.42 M/uL (4.33-5.43)
[2021-02-05 01:58] LABS: Urine Protein/Creatinine Ratio 0.16 ratio (<0.15)
[2021-02-05] MEDS: METOPROLOL XL 100 MG TAB PO SCH ×2 (05:38→16:52)
[2021-02-05] MEDS: LEVOTHYROXINE SOD 0.1 MG TAB PO SCH (05:38)
[2021-02-05 05:50] LABS: Absolute Lymphocytes (CBC) 0.4 K/uL (0.7-4.9); Basophils % 0.1 % (0-1.3); Hematocrit 28.4 % (39.6-49.0); Lymphocytes % 4.8 % (15.3-44.8); MPV 8.2 fL (7.6-11.3); RBC Red Blood Cell Count 3.23 M/uL (4.33-5.43)
[2021-02-05 06:10] LABS: Amylase 96 U/L (25-115); Creatine Phosphokinase 48 U/L (39-308); Lipase 206 U/L (73-393)
[2021-02-05] MEDS: IPRATROPIUM BROM 0.5MG/2.5ML NEB SCH ×3 (07:30→23:45)
[2021-02-05] MEDS: INSULIN -REGULAR HUMAN 50 UNIT/0.5 ML ML SQ SCH ×4 (07:30→21:00)
[2021-02-05] MEDS: PANTOPRAZOLE 40MG TABLET PO SCH ×2 (08:33→16:52)
[2021-02-05] MEDS: SPIRONOLACTONE 25 MG TABLET PO SCH (08:33)
[2021-02-05] MEDS: FERROUS SULFATE 325 MG TAB PO SCH (08:34)
[2021-02-05] MEDS: dexAMETHasone 4 MG TAB PO SCH ×2 (08:38→21:10)
[2021-02-05] MEDS: FUROSEMIDE 40 MG TABLET PO SCH ×2 (08:39→21:10)
--- NOTE | 2021-02-05 08:59 | EKG ---
Test Date: 2021-02-02 Test Time: 16:54:27 Windows Application Developer: SANDRA MEASUREMENT RESULTS: Intervals: Rate: 87 [place]: 132 QRSD: 116 QT: 364 QTc: 438 [place]: P: 83 [place]: 132 QRS: 16 T: 82 INTERPRETIVE STATEMENTS: Sinus rhythm with premature supraventricular complexes Right bundle branch block Abnormal ECG Compared to ECG 12/30/2020 14:13:20 Atrial premature complex(es) now present Right bundle-branch block now present Atrial fibrillation no longer present Ventricular premature complex(es) no longer present Left anterior fascicular block no longer present ST (T wave) deviation no longer present Electronically Signed On 02-05-21 08:55:33 CDT by Nasir Bailey
[2021-02-05 11:06] LABS: Absolute Lymphocytes (CBC) 0.4 K/uL (0.7-4.9); Basophils % 0.4 % (0-1.3); Hematocrit 29.1 % (39.6-49.0); Lymphocytes % 4.5 % (15.3-44.8); MPV 8.2 fL (7.6-11.3); RBC Red Blood Cell Count 3.29 M/uL (4.33-5.43)
--- NOTE | 2021-02-05 13:49 | CON ---
Date of Consultation: 02/04/2021 Reason For Consultation: Melena, anemic, hemoglobin 7.8, also has heme-positive stool and hematochez ia. History Of Present Illness: The patient is a 65-year-old white male with history of hypertensive hea rt disease, atrial fibrillation, congestive heart failure, hypothyroidism, COPD, status post left upp er lobe resection for lung cancer. The patient presented to hospital with anemia, hemoglobin 7.8. H e also reported having recent melena. Reported on last admission, he had heme-positive stools, C. yannick ff. Therefore, EGD performed [facility] in [place], what he rep orts overall was negative. His last colonoscopy was approximately 7 to 8 years ago he reports. He a lso noticed some hematochezia today with a colon prep. Home medicines; he was on aspirin at home and Eliquis for his history of atrial fibrillation. Past Medical History: Significant for hypertension, coronary artery disease, atrial fibrillation, di astolic congestive heart failure, hypothyroidism, COPD, lung cancer, status post left upper lobe lobe ctomy, gout, chronic kidney disease stage 4, iron deficiency anemia, appendectomy, tonsillectomy. Medications: At home include Tylenol extra-strength, aspirin, vitamin D3, Flexeril, folate, Neuronti n, magnesium, multivitamin, allopurinol, simvastatin, calcium carbonate , lactobacillus pro biotic, leflunomide, Eliquis, dexamethasone, ferrous sulfate, Lasix, Synthroid, Toprol, Atrovent, Tyl enol, Trelegy Ellipta inhaler, Ativan, and Aldactone pills. Allergies: PREDNISONE WITH SHORTNESS OF BREATH. Social History: , 2 kids. Quit tobacco 2017 with lung cancer infection. No alcohol. Family History: Father of myocardial infarction, also had a history of hypertension and melanom a. Mother of Hodgkin lymphoma and idiopathic blood loss. Brother of hypertension, melanom a, and sister has fibromyalgia. Review of Systems: The patient does have melena, hematochezia, heme-positive stool, shortness of breath, but no chest pa in, seizure, syncope, lower extremity edema, muscle aches, joint aches, backaches and no significant depression or anxiety noted. No hematemesis, coffee-grounds emesis, hematuria, dysuria, polyuria, po lydipsia, hemoptysis. He does have melena and hematochezia and heme-positive stool. Physical Examination: Vital Signs: The patient is 5 feet 5, 130 pounds, BMI 21.6 kg/m2, temperature of 96.8, pulse 80, res pirations 16, blood pressure 140/75, O2 saturation 100%. General: He is an elderly male, lying in bed, in no acute distress. HEENT: Normocephalic, atraumatic. Anicteric. Pupils are equal, round, and reactive to light. Extr aocular movements are intact. Oropharynx clear. Neck: Supple. No masses, respirations. Decreased breath sounds, anterior exam only. Cardiac: Irregularly irregular. No gallops or rubs. Abdomen: Positive bowel sounds. Soft, nontender, nondistended. No hepatosplenomegaly. Extremities: No clubbing, cyanosis. Has some mild lower extremity edema. Neuro: Alert and oriented x3. Grossly nonfocal. Able to move all extremities well. Laboratory Data: The patient's hemoglobin on admission 7.9 up to 9.6, white count 10.0, platelet cou nt 270, polys of 91%, lymphocytes 3%, monocytes 6%. PT of 11.9, INR of 1.03, PTT 28.8, sodium 141, p otassium 3.8, chloride 103, bicarb 28, BUN 72, creatinine of 3.8, glucose 108, calcium 9.4, creatinin e . Troponin I 0.06 and 0.05 and 0.16, somewhat elevated B-type natriuretic peptide of 791 3. It had a total protein of 6.5, albumin 2.9, platelets 123, lipase 206, normal fluid, some lytes. Blood in the urine was noted, but no RBCs, no bacteria. No squamous epithelial cells, negative prot ein, negative urine. COVID-19 testing was negative. Imaging: Chest x-ray reveals no acute abnormality. This displayed some slight left volume loss ____ left upper lobe lobectomy and renal ultrasound revealed increased renal consistent with parenchymal disease on the renal ultrasound. Impression: 1.Melena. Hemoglobin down to 7.8. 2.Heme-positive stool. On last admission with Clostridium difficile, it has been treated. 3.Hematochezia today with preparation for colonoscopy. 4.Anemia. Hemoglobin 9.6, blood transfusion. 5.History of hypertension. 6.Cardiac disease. 7.Atrial fibrillation. 8.Diastolic congestive heart failure. 9.Hypothyroidism. 10.Chronic obstructive pulmonary disease. 11.Lung cancer status post left upper lobe lobectomy. 12.Gout. 13.Chronic kidney disease, stage 4. 14.Iron deficiency anemia. 15.Appendectomy. 16.Tonsillectomy. Recommendation: 1.We will proceed with EGD colonoscopy. 2.Serial H and H, and transfuse p.r.n. 3.PPI therapy. 4.The patient is n.p.o. for procedures. WILNER/RYAN Voice ID: [id number] Report ID: [id number]
[2021-02-05 18:01] LABS: Absolute Lymphocytes (CBC) 0.3 K/uL (0.7-4.9); Basophils % 0.1 % (0-1.3); Hematocrit 31.7 % (39.6-49.0); Lymphocytes % 3.6 % (15.3-44.8)
[2021-02-05 18:24] LABS: Potassium 3.9 mmol/L (3.5-5.1)
--- NOTE | 2021-02-05 19:13 | PN ---
Date of Progress Note: 02/05/2021 The patient states he feels somewhat better today. He has had no GI complaints. He has had some epi sodic hypertensive episodes, however, this somewhat stabilized. Seen by Nephrology, who felt he shou ld be evaluated for another day. Monitoring of his creatinine, which is still elevated at the last r eading. We therefore repeated today in the a.m. and is stable, perhaps could be discharged. HR/MODL Voice ID: [id number] Report ID: [id number]
[2021-02-05] MEDS: ATORVASTATIN 10 MG TAB PO SCH (21:09)
[2021-02-05] MEDS: GABAPENTIN 300 MG CAP PO PRN (21:10)
[2021-02-05] MEDS: allopurinoL 100 MG TAB PO SCH (21:13)
--- NOTE | 2021-02-05 22:16 | PN ---
Date of Progress Note: 02/05/2021 Chief Complaint: Acute on chronic kidney injury, shortness of breath, anemia, decompensated congesti ve heart failure, cardiorenal syndrome. History Of Present Illness: The patient is feeling better. Urine output remains nonoliguric. Blood pressure was elevated and medications were adjusted. The patient has history of chronic kidney dise ase stage 3B, advancing to stage IV. He developed acute on chronic kidney injury secondary to cardio renal syndrome and diuretic use. Review of Systems: Denies PND or orthopnea. Physical Examination: Lungs: Crackles bilaterally present. Heart: S1, S2. Abdomen: Soft, benign. Extremities: Edema present in both legs. Laboratory Data: Hemoglobin 10.5, WBC 7.7, platelet count is 278,000. Chemistry show sodium 139, po tassium 3.9, chloride 103, CO2 27, BUN 66, creatinine 3.38, glucose 134, calcium 8.8. Impression And Plan: 1.Acute kidney injury. Renal function has been gradually improving. On arrival to the hospital, cr eatinine level was 4.36 and BUN was 73. The patient was found to have hyperkalemia, potassium level was up to 5.3 and potassium level is improving to 3.9. Plan is to continue diuretic treatment for ca rdiorenal syndrome and monitor electrolytes. Adjust diuretic combination according to electrolytes. 2.Hypertension. Monitor blood pressure and advance diuretic for congestive heart failure and acute kidney injury with cardiorenal syndrome. 3.Hyperkalemia, resolved. Monitor electrolytes. 4.Chronic obstructive pulmonary disease exacerbation. Management per primary team and Pulmonary tea m. 5.Congestive heart failure. The patient is on Lasix 40 mg twice a day. Continue low-sodium diet. EB/MODL Voice ID: [id number] Report ID: [id number]
[2021-02-05 23:45] LABS: Absolute Lymphocytes (CBC) 0.3 K/uL (0.7-4.9); Basophils % 0.2 % (0-1.3); Hematocrit 27.8 % (39.6-49.0); Lymphocytes % 4.2 % (15.3-44.8); MPV 8.7 fL (7.6-11.3); RBC Red Blood Cell Count 3.21 M/uL (4.33-5.43)
[2021-02-06 04:34] LABS: Potassium 3.9 mmol/L (3.5-5.1)
[2021-02-06] MEDS: METOPROLOL XL 100 MG TAB PO SCH ×2 (05:23→17:43)
[2021-02-06] MEDS: LEVOTHYROXINE SOD 0.1 MG TAB PO SCH (05:23)
[2021-02-06] MEDS: INSULIN -REGULAR HUMAN 50 UNIT/0.5 ML ML SQ SCH ×4 (07:30→21:00)
[2021-02-06] MEDS: IPRATROPIUM BROM 0.5MG/2.5ML NEB SCH ×3 (07:45→22:55)
[2021-02-06] MEDS: SPIRONOLACTONE 25 MG TABLET PO SCH (10:24)
[2021-02-06] MEDS: FUROSEMIDE 40 MG TABLET PO SCH ×2 (10:24→21:07)
[2021-02-06] MEDS: FERROUS SULFATE 325 MG TAB PO SCH (10:25)
[2021-02-06] MEDS: PANTOPRAZOLE 40MG TABLET PO SCH ×2 (10:25→16:16)
[2021-02-06] MEDS: dexAMETHasone 4 MG TAB PO SCH ×2 (10:29→21:07)
--- NOTE | 2021-02-06 11:22 | P.PN ---
Subjective Date of Service: 02/07/21 Chief Complaint: Shortness of breath and anemia Subjective: No new changes Physical Examination - Vital Signs Temperature: 97.7 F Blood Pressure: 158/74 Pulse: 66 Respirations: 18 Pulse Ox (%): 98 - Physical Exam General: Oriented x3 HEENT: Atraumatic, Normocephalic Neck: Supple Respiratory: Normal air movement Cardiovascular: Normal S1 S2 Gastrointestinal: Soft and benign, Non-distended Neurological: Normal speech, Normal tone Assessment And Plan - Plan # SHARITA likely 2/2 acute cardiorenal syndrome & diuretic use Slowly improving Has baseline CKD IIIB to 4 with baseline GFR of 29-38, equivalent baseline serum creatinine 1.8-2.2 Urinalysis no hematuria/pyuria/proteinuria Renal ultrasound unremarkable Accurate weight daily Monitor renal panel and input and output Cont diuretics as below # HyperK Resolved Continue po Lasix Monitor # COPD exacerbation Mngt per Pulmo service # CHF BNP high at 7900 Recheck BNP tomorrow Cont po lasix at 40 mg po bid Low-salt diet Do not restrict free water intake as his serum sodiums have been normal
--- NOTE | 2021-02-06 16:38 | EKG ---
Test Date: 2021-02-06 Test Time: 01:13:15 Television Tube Inspector: BONNY MEASUREMENT RESULTS: Intervals: Rate: 102 CT: QRSD: 110 QT: 414 QTc: 539 [place]: P: CT: QRS: -54 T: 29 INTERPRETIVE STATEMENTS: Atrial fibrillation with rapid ventricular response Incomplete right bundle branch block Left anterior fascicular block Possible Anterolateral infarct, age undetermined Abnormal ECG Compared to ECG 02/02/2021 16:54:27 Incomplete right bundle-branch block now present Left anterior fascicular block now present Myocardial infarct finding now present Sinus rhythm no longer present Atrial premature complex(es) no longer present Right bundle-branch block no longer present Electronically Signed On 02-06-21 16:36:57 CDT by Nasir Bailey
[2021-02-06] MEDS: allopurinoL 100 MG TAB PO SCH (21:00)
[2021-02-06] MEDS: ATORVASTATIN 10 MG TAB PO SCH (21:07)
--- NOTE | 2021-02-06 21:32 | PN ---
The patient is approaching his status quo and edema has improved considerably. His creatinine is now down in the 3+ range, by tomorrow should be in 2+ range and therefore discharged if stable today. Nigel ray is obviously dyspneic; however, this is his usual baseline. HR/MODL Voice ID: [id number] Report ID: [id number]
[2021-02-07 04:51] LABS: Potassium 4.1 mmol/L (3.5-5.1); Troponin I 0.03 ng/mL (0.0-0.045)
[2021-02-07] MEDS: LEVOTHYROXINE SOD 0.1 MG TAB PO SCH (05:42)
[2021-02-07] MEDS: METOPROLOL XL 100 MG TAB PO SCH (05:42)
[2021-02-07] MEDS: INSULIN -REGULAR HUMAN 50 UNIT/0.5 ML ML SQ SCH ×2 (07:30→11:30)
--- NOTE | 2021-02-07 07:58 | P.PN ---
Subjective Date of Service: 02/08/21 Chief Complaint: Shortness of breath and anemia Subjective: No new changes Physical Examination - Vital Signs Temperature: 97.7 F Blood Pressure: 158/74 Pulse: 66 Respirations: 18 Pulse Ox (%): 98 - Physical Exam General: Other (appears as stated age) HEENT: Atraumatic, Normocephalic Neck: Supple Respiratory: Normal air movement Cardiovascular: Normal S1 S2, No rubs, No murmurs Gastrointestinal: Soft and benign, Non-distended Assessment And Plan - Plan # SHARITA likely 2/2 acute cardiorenal syndrome & diuretic use Improving, SCr 2.9 today Has baseline CKD IIIB to 4 with baseline GFR of 29-38, equivalent baseline serum creatinine 1.8-2.2 Urinalysis no hematuria/pyuria/proteinuria Renal ultrasound unremarkable Accurate weight daily Monitor renal panel and input and output Cont diuretics as below # HyperK Resolved Continue po Lasix Monitor # COPD exacerbation Mngt per Pulmo service # CHF BNP was high, now much improved/decreased Cont po lasix at 40 mg po bid Low-salt diet Do not restrict free water intake as his serum sodiums have been normal
[2021-02-07] MEDS: IPRATROPIUM BROM 0.5MG/2.5ML NEB SCH ×2 (08:15→15:45)
[2021-02-07] MEDS: FERROUS SULFATE 325 MG TAB PO SCH (08:46)
[2021-02-07] MEDS: PANTOPRAZOLE 40MG TABLET PO SCH (08:47)
[2021-02-07] MEDS: SPIRONOLACTONE 25 MG TABLET PO SCH (08:47)
[2021-02-07] MEDS: FUROSEMIDE 40 MG TABLET PO SCH (08:48)
[2021-02-07] MEDS: dexAMETHasone 4 MG TAB PO SCH (08:48)
[2021-02-07] MEDS: GABAPENTIN 300 MG CAP PO PRN (08:49)
[2021-02-07 16:50] VITALS: O2SAT 99
--- NOTE | 2021-02-07 19:23 | PN ---
Date of Progress Note: 02/07/2021 The patient seems back to baseline. His creatinine is now under 3. His vital signs are stable. He does have some runs of paroxysmal atrial fib and transcript evaluator did suggest the use of the Eliquis. In view of his H and H being stable and no active bleeding apparent and no further melena, we will rest art his Eliquis. Discharge him. Continue on his home medicine leaving off his rheumatoid arthritis medication and adding Protonix 40 mg b.i.d. I will withhold his iron at this time as well, so he can justice court judge whether he is having active bleeding by his melena and return to his usual doses of dexamethas one, simvastatin, gabapentin, and Flexeril. He is to follow up with pulmonology on Friday, which he had a prior appointment and Nephrology 1 day next week, GI and cardiovascular in 2 weeks and myself o n a p.r.n. basis. HR/MODL Voice ID: [id number] Report ID: [id number]
[2021-02-08 06:21] VITALS: BP 158/74; TEMP 97.7
--- NOTE | 2021-02-08 13:45 | CON ---
Date of Consultation: 02/07/2021 Reason For Consultation: Atrial fibrillation. History Of Present Illness: Mr. Narvaez is known to me from previous office visits and previous [facility] admission. He has a rather complicated past medical history of atrial fibrillation, C difficil e, COPD, gout, hypertension, kidney disease, lung cancer, pneumothorax, and rheumatoid arthritis. He has had a left upper lobe lobectomy in the past and appendectomy in the past. He came in with short ness of breath, was found to be in atrial fibrillation, which is really chronic for him. He is not a candidate for beta blockade, sotalol or amiodarone because of severe lung disease. The patient has been treated here with Tylenol, Lipitor, Lasix, insulin, inhalers, Synthroid, metoprolol 100 b.i.d., pantoprazole, spironolactone, allopurinol, and dexamethasone. At home, he takes Eliquis 5 mg b.i.d. in addition to the above-mentioned medication. He is also on Zocor at home. Allergies: HE IS ALLERGIC TO PREDNISONE. Review of Systems: Negative. Social History: Negative. Family History: Noncontributory. Physical Examination: General: When I saw him, he was actually in sinus rhythm. Blood pressure was 170/80. His breathing rate was 20. He was afebrile. HEENT: Negative. Neck: Supple. No bruit. Chest: Clear. Cardiac: Revealed a regular rhythm and rate. No murmurs, gallops, or rubs. Abdomen: Benign. Extremities: Revealed no clubbing, cyanosis, or edema. Diagnostic Data: His O2 saturation was 99% on 2 L. His creatinine of 2.93. His hemoglobin was 9.5. His troponin was negative. EKG that was done on 02/03/2021 revealed right bundle-branch block, sin us rhythm with PACs. He had a renal ultrasound that is consistent with parenchymal disease. No quique l artery stenosis. No masses. The patient was initially anemic with 7.8 with some melena when he ca me and he was seen by Dr. Arthur. There was a plan with EGD and colonoscopy, PPI therapy. He is sujata ared from our standpoint. Impression And Plan: Paroxysmal atrial fibrillation, on Eliquis and metoprolol. I think the patient should his Eliquis held considering his having bleeding with melena and hemoglobin of 7.8. We will see what the EGD and colonoscopy show. He is cleared for those procedures. I think he is a good can didate for ablation and maybe a Watchman and I will discuss that with him after he goes to the office . His other problems including hypertension; diastolic congestive heart failure; hypothyroidism; chr onic obstructive pulmonary; lung cancer, status post left upper lobe lobectomy; chronic kidney diseas e, all of those are stable at this point. From my standpoint, the patient is cleared for endoscopy a nd colonoscopy. Continue metoprolol, maybe a baby aspirin, but hold Eliquis. Consider ablation and a Watchman when he goes home. ENRIQUE/RYAN Voice ID: [id number] Report ID: [id number]
== END 2021-02-07 17:28 | disposition home or self-care (01) | DRG 190 ==
LOC: ER 13:48 → ERHOLD 18:59 → 2ND 19:48
PROVIDERS: ADMIT Family Medicine; ATTEND Family Medicine
PROC: 30233N1 Transfusion of Nonautologous Red Blood Cells into Peripheral Vein, Percutaneous Approach (ICD-10-PCS; 2021-02-02)
PROC: 0DB68ZX Excision of Stomach, Via Natural or Artificial Opening Endoscopic, Diagnostic (ICD-10-PCS; 2021-02-04)
PROC: 0DBN8ZX Excision of Sigmoid Colon, Via Natural or Artificial Opening Endoscopic, Diagnostic (ICD-10-PCS; principal; 2021-02-04 08:30)
DX: J44.1 Chronic obstructive pulmonary disease with (acute) exacerbation (principal); K26.4 Chronic or unspecified duodenal ulcer with hemorrhage; D62 Acute posthemorrhagic anemia; I50.32 Chronic diastolic (congestive) heart failure; N18.4 Chronic kidney disease, stage 4 (severe); I13.0 Hypertensive heart and chronic kidney disease with heart failure and stage 1 through stage 4 chronic kidney disease, or unspecified chronic kidney disease; G45.9 Transient cerebral ischemic attack, unspecified; N17.9 Acute kidney failure, unspecified; K63.5 Polyp of colon; K20.90 Esophagitis, unspecified without bleeding; K29.80 Duodenitis without bleeding; K64.8 Other hemorrhoids; K64.4 Residual hemorrhoidal skin tags; I48.0 Paroxysmal atrial fibrillation; K44.9 Diaphragmatic hernia without obstruction or gangrene; E03.9 Hypothyroidism, unspecified; I25.10 Atherosclerotic heart disease of native coronary artery without angina pectoris; M06.9 Rheumatoid arthritis, unspecified; E87.5 Hyperkalemia; M10.9 Gout, unspecified; Z90.49 Acquired absence of other specified parts of digestive tract; Z85.118 Personal history of other malignant neoplasm of bronchus and lung; Z88.8 Allergy status to other drugs, medicaments and biological substances; Z79.82 Long term (current) use of aspirin; Z79.890 Hormone replacement therapy; Z79.899 Other long term (current) drug therapy; Z79.01 Long term (current) use of anticoagulants; Z87.891 Personal history of nicotine dependence; Z20.822 Contact with and (suspected) exposure to COVID-19
CPT/HCPCS: 36415; 71045; 76770; 80048; 80076; 81003; 81015; 82150; 82274; 82550; 82553; 82570; 82947; 83605; 83690; 83880; 83935; 84145; 84156; 84300; 84484; 85014; 85018; 85025; 85610; 85730; 86850; 86900; 86901; 87040; 88305; 88312; 93005; 94640; 94760; 96361; 96365; 96375; 99285; J0171; J0456; J0696; J1100; J1940; J2250; J2704; J3010; J7030; J7040; J7050; J7799; J8540; P9016; U0003

== ENCOUNTER 2021-02-14 12:27 | Inpatient (IN) | payer OTHER, BC ==
[2021-02-14 14:24] LABS: Protime INR 1.45
[2021-02-14 14:25] LABS: Absolute Lymphocytes (CBC) 0.2 K/uL (0.7-4.9); Basophils % 0.3 % (0-1.3); Hematocrit 25.6 % (39.6-49.0); Lymphocytes % 0.8 % (15.3-44.8); MPV 8.4 fL (7.6-11.3)
[2021-02-14] MEDS ORDERED: LEVALBUTEROL 1.25 MG/3 ML NEB ONE (14:26)
[2021-02-14] MEDS ORDERED: IPRATROPIUM BROM 0.5MG/2.5ML ONE (14:26)
[2021-02-14] MEDS ORDERED: MAGNESIUM SULFATE 1 gm IVPB 1 GM/100 ML BAG IV ONE (14:26)
[2021-02-14 14:33] LABS: ALT/SGPT 21 U/L (12-78); AST/SGOT 20 U/L (15-37); Albumin 2.7 g/dL (3.4-5.0); Alkaline Phosphatase 43 U/L (45-117); BUN Blood Urea Nitrogen 71 mg/dL (7-18); Bicarbonate 25 mmol/L (21-32); Bilirubin Direct < 0.1 mg/dL (0-0.2); Bilirubin Total 0.2 mg/dL (0.2-1.0); Glucose Level 106 mg/dL (74-106); Lipase 360 U/L (73-393); Magnesium 2.4 mg/dL (1.8-2.4); NT PRO-BNP 12810 pg/mL (<125); Potassium 3.7 mmol/L (3.5-5.1); Protein, Total 6.6 g/dL (6.4-8.2); Sodium Level 138 mmol/L (136-145); Troponin (Emerg Dept Use Only) 0.16 ng/mL (0.0-0.045)
[2021-02-14] MEDS ORDERED: METHYLPREDNISOLONE 125 MG INJ ONE (14:38)
--- NOTE | 2021-02-14 14:39 | RAD REPORT ---
EXAM DESCRIPTION: Dorothy Single View02/14/2021 2:28 pm CLINICAL HISTORY: Shortness of breath COMPARISON: February 02, 2021 FINDINGS: Mild to moderate scattered right lung opacities. Left lung appears clear of acute infiltrate. Heart is normal size COPD IMPRESSION: Mild to moderate scattered right lung opacities probably pneumonia
--- NOTE | 2021-02-14 14:54 | ER ---
Nurse's Notes [facility] Name: Angelo Narvaez Age: 65 yrs Sex: Male : 1955 Arrival Date: 02/14/2021 Time: 12:28 Bed 8 Private MD: Diagnosis: Pneumonia, unspecified organism;Hypoxia Presentation: 02/14 12:41 Chief complaint: Patient states: SOB for 3 days. Fever 100.3 at home. O2 sat 97-90% at ll1 home. Coronavirus screen: Client denies travel out of the [place] in the last 14 days. cough unrelated to allergies, difficulty breathing, fatigue, fever, shortness of breath, Client presents with at least one sign or symptom that may indicate coronavirus-19. Standard/surgical mask placed on the client. Ebola Screen: Patient denies travel to an Ebola-affected area in the 21 days before illness onset. Initial Sepsis Screen: Does the patient meet any 2 criteria? RR > 20 per min. Yes Does the patient have a suspected source of infection? Yes: Productive cough/pneumonia. Risk Assessment: Do you want to hurt yourself or someone else? Patient reports no desire to harm self or others. Onset of symptoms was February 12, 2021. 12:41 Method Of Arrival: Wheelchair ll1 12:41 Acuity: STEPHIE 2 ll1 Triage Assessment: 14:52 General: Appears in no apparent distress. Behavior is calm. Respiratory: Reports iw shortness of breath at rest on exertion cough that is non-productive, the patient has moderate shortness of breath. Historical: - Allergies: 12:45 Prednisone; ll1 - PMHx: 12:45 Atrial Fib; kidney disease; HTN; Lung Cancer; Gout; Pneumothorax; C-diff; COPD; ll1 Rheumatoid Arthritis; - PSHx: 12:45 Appendectomy; Lobectomy, Left upper lobe; ll1 - Immunization history:: Client reports receiving the 2nd dose of the Covid vaccine, Flu vaccine is up to date. - Social history:: Smoking status: Patient/guardian denies using tobacco, the patient reports quitting approximately 4 years ago. Screenin:54 Abuse screen: Denies threats or abuse. Denies injuries from another. Nutritional iw screening: No deficits noted. Tuberculosis screening: No symptoms or risk factors identified. Fall Risk IV access (20 points). Assessment: 15:00 Pain: Denies pain. Cardiovascular: Rhythm is atrial fibrillation with rapid ventricular iw response. Respiratory: Airway is patent Respiratory effort is even, labored, Breath sounds are diminished bilaterally. Breath sounds with wheezes bilaterally. 15:48 Reassessment: Patient appears in no apparent distress at this time. Patient and/or iw family updated on plan of care and expected duration. Pain level reassessed. Patient is alert, oriented x 3, equal unlabored respirations, skin warm/dry/pink. Patient states feeling better. Patient states symptoms have improved. 15:53 Reassessment: Dr. Vazquez at bedside to asses pt. iw 16:01 Reassessment: kalyan oliva given. iw 17:24 Reassessment: amiodarone bolus finished at 1722. iw 18:00 Reassessment: Patient appears in no apparent distress at this time. called Dr. taiwo Vazquez, reported that pt symptoms have improved HR down into the 80s-90s, more regular but still having PVC's, pt will be on amiodarone drip over night per Dr. Vazquez Patient states feeling better. Patient states symptoms have improved. 18:32 Reassessment: JUAN Ahmadi spoke with Dr. Wilkins, pt is to be admitted under Dr. taiwo Wilkins and he does not want pt on amiodarone drip , pt will go to 2nd floor, pt has chronic hx of Afib, COPD, will hold his nightly metoprolol for BP of 105/70 and HR of 86. Vital Signs: 12:41 BP 150 / 97; Pulse 106; Resp 30; Temp 97.8; Pulse Ox 93% on R/A; Weight 58.97 kg; ll1 Height 5 ft. 5 in. (165.10 cm); Pain 4/10; 15:37 BP 125 / 77; Pulse 106; Resp 24 S; Pulse Ox 96% on 3 lpm NC; iw 18:32 BP 105 / 70; Pulse 86; Resp 24; Pulse Ox 99% on 3 lpm NC; iw 12:41 Body Mass Index 21.63 (58.97 kg, 165.10 cm) ll1 ED Course: 12:28 Patient arrived in ED. ds1 12:44 Triage completed. ll1 12:46 Arm band placed on. ll1 12:46 mat tester on. Pulse ox on. NIBP on. iw 12:58 Da[facility] Whitfield [facility]C [facility]. kb 12:58 Dallas Ansari MD is Attending Physician. kb 13:30 Inserted saline lock: 22 gauge in right wrist, using aseptic technique. iw 14:01 Luma Lopez, RN is Primary Nurse. iw 14:53 Wilmar Vazquez MD is Hospitalizing Provider. kb 15:21 COVID swab sent to lab. jp3 16:12 Danial Wilkins MD is Hospitalizing Provider. kb 19:38 Patient has correct armband on for positive identification. iw 19:38 No provider procedures requiring assistance completed. Patient admitted, IV remains in iw place. Administered Medications: 14:10 Drug: Magnesium Sulfate 1 grams Route: IVPB; Infused Over: 1 hrs; Site: right wrist; iw 14:26 Drug: Xopenex (levalbuterol) (3) 1.25 mg Route: Inhalation; iw 14:26 Drug: AtroVENT (ipratropium) Aerosol 0.5 mg Route: Inhalation; iw 14:26 Drug: SOLU-Medrol (methylPrednisoLONE) 125 mg Route: IVP; Site: right wrist; iw 15:47 Drug: LevaQUIN (levofloxacin) 750 mg Volume: 150 ml; Route: IVPB; Infused Over: 90 iw mins; Site: right wrist; Outcome: 14:52 Discharge ordered by MD. kb 14:53 Decision to Hospitalize by Provider. kb 19:38 Admitted to Tele accompanied by nurse, room 206. iw 19:38 Condition: stable 19:38 Instructed on the need for admit, Demonstrated understanding of instructions. 19:39 Patient left the ED. iw Signatures: Daiana Whitfield FNP-C [employer]BL[employer] CELL-Demarcusb Prema Marcus ds1 Luma Lopez, RN RN iw Trevon Vazquez jp3 Catracho Paula RN RN ll1
--- NOTE | 2021-02-14 14:54 | EDPHYS ---
Physician Documentation [facility] Name: Angelo Narvaez Age: 65 yrs Sex: Male : 1955 Arrival Date: 02/14/2021 Time: 12:28 Bed 8 Private MD: ED Physician Dallas Ansari HPI: 02/14 16:49 This 65 yrs old Male presents to ER via Wheelchair with complaints of kb Breathing Difficulty. 16:49 The patient has shortness of breath at rest. Onset: The symptoms/episode began/occurred kb yesterday. Duration: The symptoms are continuous. The patient's shortness of breath is aggravated by exertion, light activity, is alleviated by rest. Associated signs and symptoms: Pertinent positives: non-productive cough. Severity of symptoms: At their worst the symptoms were moderate in the emergency department the symptoms are unchanged. The patient has experienced similar episodes in the past, multiple times. The patient has been recently been admitted at [facility], was discharged a couple of weeks ago. Historical: - Allergies: 12:45 Prednisone; ll1 - PMHx: 12:45 Atrial Fib; kidney disease; HTN; Lung Cancer; Gout; Pneumothorax; C-diff; COPD; ll1 Rheumatoid Arthritis; - PSHx: 12:45 Appendectomy; Lobectomy, Left upper lobe; ll1 - Immunization history:: Client reports receiving the 2nd dose of the Covid vaccine, Flu vaccine is up to date. - Social history:: Smoking status: Patient/guardian denies using tobacco, the patient reports quitting approximately 4 years ago. ROS: 16:48 Constitutional: Negative for fever, chills, and weight loss, Cardiovascular: Negative kb for chest pain, palpitations, and edema, Abdomen/GI: Negative for abdominal pain, nausea, vomiting, diarrhea, and constipation, MS/Extremity: Negative for injury and deformity, Skin: Negative for injury, rash, and discoloration, Neuro: Negative for headache, weakness, numbness, tingling, and seizure. 16:48 Respiratory: Positive for cough, dyspnea on exertion, shortness of breath. Exam: 16:48 Constitutional: This is a well developed, well nourished patient who is awake, alert, kb and in no acute distress. Head/Face: Normocephalic, atraumatic. Cardiovascular: Regular rate and rhythm with a normal S1 and S2. No gallops, murmurs, or rubs. No pulse deficits. Abdomen/GI: Soft, non-tender. No distention Skin: Warm, dry with normal turgor. Normal color. MS/ Extremity: Pulses equal, no cyanosis. Neurovascular intact. Full, normal range of motion. Neuro: Awake and alert, GCS 15, oriented to person, place, time, and situation. Moves all extremities. Normal gait. 16:48 Respiratory: mild respiratory distress is noted, Respirations: labored breathing, Breath sounds: wheezing: inspiratory expiratory that is mild, is scattered. 18:06 ECG was reviewed by the Attending Physician. Vital Signs: 12:41 BP 150 / 97; Pulse 106; Resp 30; Temp 97.8; Pulse Ox 93% on R/A; Weight 58.97 kg; ll1 Height 5 ft. 5 in. (165.10 cm); Pain 4/10; 15:37 BP 125 / 77; Pulse 106; Resp 24 S; Pulse Ox 96% on 3 lpm NC; iw 18:32 BP 105 / 70; Pulse 86; Resp 24; Pulse Ox 99% on 3 lpm NC; iw 12:41 Body Mass Index 21.63 (58.97 kg, 165.10 cm) ll1 MDM: 12:58 Patient medically screened. kb 14:51 Data reviewed: vital signs, nurses notes. Data interpreted: Pulse oximetry: on 4L(s) kb per nasal canula, is 93 %. Interpretation: acceptable. Counseling: I had a detailed discussion with the patient and/or guardian regarding: the historical points, exam findings, and any diagnostic results supporting the discharge/admit diagnosis, lab results, radiology results, the need for further work-up and treatment in the hospital. Physician consultation: Wilmar Vazquez MD was contacted at 14:51, regarding admission, to the telemetry unit. patient's condition, and will see patient in ED, shortly. 16:12 Physician consultation: Danial Wilkins MD was contacted at 16:12, regarding admission, patient's condition, and will see patient in inpatient room. 02/14 13:18 Order name: Blood Culture Adult (2) kb 02/14 13:18 Order name: BMP; Complete Time: 14:46 kb 02/14 13:18 Order name: CBC with Diff; Complete Time: 15:31 kb 02/14 13:18 Order name: Hepatic Function; Complete Time: 14:46 kb 02/14 13:18 Order name: Lipase; Complete Time: 14:46 kb 02/14 13:18 Order name: Magnesium; Complete Time: 14:46 kb 02/14 13:18 Order name: NT PRO-BNP; Complete Time: 14:46 kb 02/14 13:18 Order name: PT-INR; Complete Time: 14:32 kb 02/14 13:18 Order name: Ptt, Activated; Complete Time: 14:32 kb 02/14 13:18 Order name: Troponin (emerg Dept Use Only); Complete Time: 14:46 kb 02/14 13:18 Order name: Lactate; Complete Time: 14:32 kb 02/14 13:18 Order name: Procalcitonin; Complete Time: 14:46 kb 02/14 15:02 Order name: COVID-19 : Document "Date of Symptom Onset" if Symptomatic. iw 02/14 15:29 Order name: Manual Differential; Complete Time: 15:31 EDMS 02/14 13:18 Order name: XRAY CXR (1 view) kb 02/14 13:18 Order name: EKG; Complete Time: 13:19 kb 02/14 13:18 Order name: Cardiac monitoring; Complete Time: 14:40 kb 02/14 13:18 Order name: EKG - Nurse/Tech; Complete Time: 14:39 kb 02/14 13:18 Order name: IV Saline Lock; Complete Time: 14:39 kb 02/14 13:18 Order name: Labs collected and sent; Complete Time: 14:39 kb 02/14 13:18 Order name: O2 Per Protocol; Complete Time: 14:39 kb 02/14 13:18 Order name: O2 Sat Monitoring; Complete Time: 14:40 kb 02/14 14:40 Order name: RAD; Complete Time: 14:46 EDMS 02/14 17:04 Order name: SARS-COV-2 RT PCR; Complete Time: 17:08 EDMS EC:06 Rate is 102 beats/min. Rhythm is regular. QRS Jackson is Normal. [place] interval is normal at kb 130 msec. QRS interval is normal at 118 msec. QT interval is normal at 370 msec. Administered Medications: 14:10 Drug: Magnesium Sulfate 1 grams Route: IVPB; Infused Over: 1 hrs; Site: right wrist; iw 14:26 Drug: Xopenex (levalbuterol) (3) 1.25 mg Route: Inhalation; iw 14:26 Drug: AtroVENT (ipratropium) Aerosol 0.5 mg Route: Inhalation; iw 14:26 Drug: SOLU-Medrol (methylPrednisoLONE) 125 mg Route: IVP; Site: right wrist; iw 15:47 Drug: LevaQUIN (levofloxacin) 750 mg Volume: 150 ml; Route: IVPB; Infused Over: 90 iw mins; Site: right wrist; Disposition: 02/15 07:27 Co-signature as Attending Physician, Dallas Ansari MD I agree with the assessment and kdr plan of care. Disposition: 02/14/21 14:53 Hospitalization ordered by Danial Wilkins for Inpatient Admission. Preliminary diagnosis are Pneumonia, unspecified organism, Hypoxia. - Bed requested for Telemetry/MedSurg (Inpatient). - Status is Inpatient Admission. iw - Condition is Stable. - Problem is new. - Symptoms are unchanged. Signatures: Dispatcher [employer] EDDaiana Martinez, KEYLA-C REGIONAL OPERATIONS MANAGER-Kari Can RN RN Dallas Ansari MD MD [facility] Luma Lopez RN RN iw Catracho Paula RN RN ll1 Corrections: (The following items were deleted from the chart) 02/14 14:52 14:52 02/14/2021 14:52 Discharged to Home. Impression: Pneumonia, unspecified organism; kb Hypoxia. Condition is Stable. Forms are Medication Reconciliation Form, Thank You Letter, Antibiotic Education, Prescription Opioid Use. Follow up: Emergency Department; When: As needed; Reason: Worsening of condition. Follow up: Private Physician; When: 2 - 3 days; Reason: Recheck today's complaints, Continuance of care, Re-evaluation by your physician. kb 16:12 14:53 Hospitalization Ordered by Wilmar Vazquez MD for Inpatient Admission. Preliminary kb diagnosis is Pneumonia, unspecified organism; Hypoxia. Bed requested for Telemetry/MedSurg (Inpatient). Status is Inpatient Admission. Condition is Stable. Problem is new. Symptoms are unchanged. kb 17:12 16:12 02/14/2021 14:53 Hospitalization Ordered by Danial Wilkins MD for Inpatient dw Admission. Preliminary diagnosis is Pneumonia, unspecified organism; Hypoxia. Bed requested for Telemetry/MedSurg (Inpatient). Status is Inpatient Admission. Condition is Stable. Problem is new. Symptoms are unchanged. kb 18:33 17:12 02/14/2021 14:53 Hospitalization Ordered by Danial Wilkins MD for Inpatient dw Admission. Preliminary diagnosis is Pneumonia, unspecified organism; Hypoxia. Bed requested for Telemetry/MedSurg (Inpatient). Status is Inpatient Admission. Condition is Stable. Problem is new. Symptoms are unchanged. dw 18:48 18:33 02/14/2021 14:53 Hospitalization Ordered by Danial Wilkins MD for Inpatient dw Admission. Preliminary diagnosis is Pneumonia, unspecified organism; Hypoxia. Bed requested for [facility] ER HOLD. Status is Inpatient Admission. Condition is Stable. Problem is new. Symptoms are unchanged. dw 19:22 18:48 02/14/2021 14:53 Hospitalization Ordered by Danial Wilkins MD for Inpatient dw Admission. Preliminary diagnosis is Pneumonia, unspecified organism; Hypoxia. Bed requested for [facility] ER HOLD. Status is Inpatient Admission. Condition is Stable. Problem is new. Symptoms are unchanged. dw 19:39 19:22 02/14/2021 14:53 Hospitalization Ordered by Danial Wilkins MD for Inpatient iw Admission. Preliminary diagnosis is Pneumonia, unspecified organism; Hypoxia. Bed requested for Telemetry/MedSurg (Inpatient). Status is Inpatient Admission. Condition is Stable. Problem is new. Symptoms are unchanged. dw
[2021-02-14] MEDS ORDERED: MORPHINE 2 MG/ML SYR IV PRN (14:58)
[2021-02-14] MEDS ORDERED: ACETAMINOPHEN 500 MG TAB PO PRN ×2 (14:58→22:33)
[2021-02-14] MEDS ORDERED: ONDANSETRON 4 MG/2 ML VIAL IV PRN (14:58)
[2021-02-14] MEDS ORDERED: ALBUTEROL 2.5 MG/3 ML NEB SOL NEB PRN (14:58)
[2021-02-14 15:29] LABS: Blood Morphology Comment NOT SEEN (NOT SEEN); Platelet Estimate ADEQ
[2021-02-14] MEDS ORDERED: Levofloxacin 750mg IV 750 MG/150 ML BAG IV ONE (15:59)
[2021-02-14] MEDS ORDERED: ACETAMINOPHEN 500 MG TAB ONE (16:09)
[2021-02-14] MEDS ORDERED: INSULIN -REGULAR HUMAN 50 UNIT/0.5 ML ML SQ SCH (16:30)
[2021-02-14] MEDS ORDERED: AMIODARONE HCL 150 MG in D5W 100 ML IV STA (16:30)
[2021-02-14] MEDS ORDERED: FUROSEMIDE 40 MG/4 ML VIAL IV SCH (17:00)
[2021-02-14] MEDS: dexAMETHasone 10 MG/ML VIAL IV SCH (17:00)
[2021-02-14] MEDS ORDERED: PIPER/TAZO/NS 2.25gm 2.25 GM/50 ML BAG IVPB SCH (17:00)
[2021-02-14] MEDS ORDERED: dexAMETHasone 4 MG/ML VIAL IV SCH (17:00)
--- NOTE | 2021-02-14 17:25 | P.HP ---
Certification for Inpatient With expected LOS: >2 Midnights Practitioner: I am a practitioner with admitting privileges, knowledge of patient current condition, hospital course, and medical plan of care. Services: Services provided to patient in accordance with Admission requirements found in Title 42 Section 412.3 of the Code of Federal Regulations Patient History Date of Service: 02/14/21 Reason for admission: Shortness of breath History of Present Illness: 65-year-old male with history of lung cancer status post lobectomy, paroxysmal atrial fibrillation on chronic anticoagulation, coronary artery disease, CKD stage 4, COPD, home chronic home O2 and oral steroids with dexamethasone use for, follow with Pulmonary-ductus Steph her graft [place], recurrent admission for COPD and recurrent pneumonia. History of diastolic CHF admitted now because of worsening shortness of breath and home O2 showing sats at 76% Ruth Ann 2 0 85% on nasal cannula O2. Patient does also state he does not always when he home O2. On arrival and his oxygen is satting 95% on nasal cannula 2 L. he admits to cough, chest congestion. He was noted with marked elevated heart rates in the a fever to 130s. He admits to our compliant with his metoprolol use. His social he if he has taking amiodarone or digoxin in the past. Chest x-ray shows right nodule infiltrates. EKG shows AFib. He has been admitted for AFib with RVR, CHF exacerbation as well as right base pneumonia patient follows with Allergies prednisone Adverse Reaction (Severe, Verified 12/27/20 20:48) Shortness of breath Home Medications: Acetaminophen/Diphenhydramine [Tylenol Pm Ex-Strength Caplet] 2 tab PO BEDTIME PRN 07/07/20 Aspirin Chewable [Aspirin Chewable*] 81 mg PO DAILY 07/07/20 Cholecalciferol (Vitamin D3) [Vitamin D3] 2,000 unit PO DAILY 07/07/20 Cyclobenzaprine [Flexeril*] 5 mg PO BEDTIME PRN 07/07/20 Folic Acid 3 mg PO DAILY 07/07/20 Gabapentin [Neurontin*] 300 mg PO BIDP PRN 07/07/20 Magnesium Oxide [Magnesium] 500 mg PO DAILY 07/07/20 Multivitamin with Minerals [One Daily Plus Minerals] 1 tab PO DAILY 07/07/20 allopurinoL [Zyloprim*] 100 mg PO BEDTIME 07/07/20 Simvastatin 20 mg PO BEDTIME 07/25/20 Calcium Carbonate [Tums Regular*] 1,000 mg PO DAILY #30 tab 07/28/20 L.acidoph,Paracasei, B.lactis [Probiotic] 1 each PO DAILY 08/03/20 Leflunomide 20 mg PO BEDTIME 08/03/20 Apixaban [Eliquis] 5 mg PO BID 30 Days #60 tablet 08/05/20 dexAMETHasone [Dexamethasone] 1 mg PO DAILY 10/22/20 Ferrous Sulfate [Ferrous Sulfate*] 325 mg PO DAILY #30 tab 11/06/20 Furosemide [Lasix*] 40 mg PO DAILY #33 tab 11/06/20 Levothyroxine [Synthroid*] 0.1 mg PO [id number] #30 tab 11/06/20 Metoprolol Succinate [Toprol Xl*] 100 mg PO BID 6AM 6PM #60 tab 11/06/20 Ipratropium Neb [Atrovent*] 0.5 mg NEB BID 12/28/20 Acetaminophen [Tylenol Extra Strength] 2 tab PO BIDP PRN 02/02/21 Fluticasone/Umeclidin/Vilanter [Trelegy Ellipta 100-62.5-25] 1 puff IH DAILY 02/02/21 LORazepam [Ativan] 0.5 mg PO DAILYPRN PRN 02/02/21 Spironolactone 1 tab PO DAILY 02/02/21 Pantoprazole [Protonix Tab] 40 mg PO BID 30 Days #60 tab 02/07/21 - Past Medical/Surgical History Diabetic: No -: Hypertension -: COPD -: Atrial fibrillation on chronic anticoagulation therapy -: Lung cancer(does not know which type) -: Gout -: Chronic diastolic congestive heart failure -: Chronic kidney disease stage 4 -: Iron deficiency anemia -: Hypothyroidism -: left upper lung lobectomy with lymph node resection -: appendectomy -: tonsillectomy Psychosocial/ Personal History: . Currently lives at home with his - Family History Father -: Heart disease, Hypertension Notes: at 75 yo Mother -: Cancer Notes: no medical history, still living Brother -: Hypertension, Cancer Notes: melanoma Sister -: Other (see notes) Notes: fibromyalgia - Social History Alcohol use: No CD- Drugs: No Caffeine use: No Place of Residence: Home Review of Systems 10-point ROS is otherwise unremarkable Physical Examination - Physical Exam General: Alert, Oriented x3, Cooperative HEENT: Atraumatic, Normocephalic, PERRLA Neck: Supple, 2+ carotid pulse no bruit, JVD not distended Respiratory: Diminished, Crackles/rales, Expiratory wheezes Cardiovascular: Normal S1 S2, Edema, Irregular heart rate/rhythm, Gallops Gastrointestinal: Normal bowel sounds, Soft and benign, Non-distended, No ascites Musculoskeletal: No clubbing, Swelling Integumentary: No rashes, No breakdown Neurological: Normal speech, Normal strength at 5/5 x4 extr, Normal tone External genitalia: No lesions, Edema - Studies Laboratory Data (last 24 hrs) 02/14/21 13:56: PT 16.7 H, INR 1.45, APTT 29.3 02/14/21 13:56: WBC 21.10 H* D, Hgb 8.4 L, Hct 25.6 L, Plt Count 309 D 02/14/21 13:56: Sodium 138, Potassium 3.7, BUN 71 H, Creatinine 3.34 H, Glucose 106, Magnesium 2.4, Total Bilirubin 0.2, AST 20, ALT 21, Alkaline Phosphatase 43 L, Lipase 360 Imagings Data: Report Status: Signed EXAM DESCRIPTION: Dorothy Single View02/14/2021 2:28 pm CLINICAL HISTORY: Shortness of breath COMPARISON: February 02, 2021 FINDINGS: Mild to moderate scattered right lung opacities. Left lung appears clear of acute infiltrate. Heart is normal size COPD IMPRESSION: Mild to moderate scattered right lung opacities probably pneumonia Assessment and Plan - Problems (Diagnosis) (1) Acute on chronic diastolic heart failure Current Visit: No Status: Acute (2) Acute worsening of stage 3 chronic kidney disease Current Visit: No Status: Acute (3) COPD exacerbation Onset Date: 04/27/18 Current Visit: No Status: Acute (4) History of lung cancer Current Visit: No Status: Acute (5) Status post lobectomy of lung Current Visit: No Status: Acute (6) Tachyarrhythmia Onset Date: 04/27/18 Current Visit: No Status: Acute (7) Atrial fibrillation Current Visit: No Status: Chronic Qualifiers: Atrial fibrillation type: chronic (8) Chronic renal disease Current Visit: No Status: Chronic Qualifiers: Chronic kidney disease stage: stage 3 (moderate) (9) Oxygen dependent Current Visit: No Status: Chronic - Advance Directives Does patient have a Living Will: No Does patient have a Durable POA for Healthcare: No Physician Review Additional Text: -Admit patient to inpatient status -will start combination of IV Lasix/continue Decadron/empirical antibiotics -continue Eliquis for DVT prophylaxis as well as AFib -Given rapid ventricular response atrial fibrillation, will dose Amiodarone 150 mg IV slowly now and then we start Amiodarone drip if not improving -transfer care to Dr. Wilkins in a.m. Critical Care: No Time Spent Managing Pts Care (In Minutes): 65
[2021-02-14] MEDS ORDERED: AMIODARONE HCL 900 MG in Dextrose 5%-Water 482 ML IV SCH (18:00)
[2021-02-14] MEDS ORDERED: METOPROLOL XL 100 MG TAB PO SCH (18:00)
[2021-02-14] MEDS ORDERED: IPRATROPIUM BROM 0.5MG/2.5ML NEB SCH (20:00)
[2021-02-14] MEDS ORDERED: PANTOPRAZOLE 40MG TABLET PO SCH (21:00)
[2021-02-14] MEDS ORDERED: ATORVASTATIN 10 MG TAB PO SCH (21:00)
[2021-02-14] MEDS ORDERED: APIXABAN 5 MG TABLET PO SCH ×2 (21:00→22:39)
[2021-02-14] MEDS ORDERED: HOME MED 1 EA UNK (Simvastatin [Simvastatin] 20 MG Tablet) PO SCH (21:00)
[2021-02-14] MEDS: METOPROLOL TAR 50 MG TAB PO SCH (21:21)
[2021-02-14 21:48] VITALS: BMI 20.6
[2021-02-14] MEDS ORDERED: LORAZEPAM 0.5 MG TABLET PO PRN (22:37)
[2021-02-14] MEDS ORDERED: allopurinoL 100 MG TAB PO SCH (22:42)
[2021-02-14] MEDS: FUROSEMIDE 40 MG TABLET PO SCH (23:00)
[2021-02-14] MEDS: ATORVASTATIN 10 MG TAB PO SCH (23:01)
[2021-02-14] MEDS: PANTOPRAZOLE 40MG TABLET PO SCH (23:01)
[2021-02-14] MEDS: GABAPENTIN 300 MG CAP PO PRN (23:01)
[2021-02-15] MEDS: dexAMETHasone 10 MG/ML VIAL IV SCH ×2 (01:00→09:15)
[2021-02-15] MEDS ORDERED: LEVOTHYROXINE SOD 0.1 MG TAB PO SCH (06:00)
[2021-02-15 06:21] LABS: Potassium 4.5 mmol/L (3.5-5.1)
[2021-02-15] MEDS: LEVOTHYROXINE SOD 0.1 MG TAB PO SCH (06:24)
[2021-02-15 06:27] LABS: Absolute Lymphocytes (CBC) 0.2 K/uL (0.7-4.9); Basophils % 0.1 % (0-1.3); Hematocrit 22.5 % (39.6-49.0); Lymphocytes % 1.3 % (15.3-44.8); MPV 8.2 fL (7.6-11.3); RBC Red Blood Cell Count 2.58 M/uL (4.33-5.43)
--- NOTE | 2021-02-15 07:37 | EKG ---
Test Date: 2021-02-14 Test Time: 13:09:01 Supply Clerk: LUANNE MEASUREMENT RESULTS: Intervals: Rate: 102 MN: 130 QRSD: 118 QT: 370 QTc: 482 [place]: P: 79 MN: 130 QRS: -10 T: 55 INTERPRETIVE STATEMENTS: Sinus tachycardia with premature atrial complexes Incomplete right bundle branch block Cannot rule out Anterior infarct, age undetermined Abnormal ECG Compared to ECG 02/06/2021 01:13:15 Atrial premature complex(es) now present Atrial fibrillation no longer present Left anterior fascicular block no longer present Myocardial infarct finding still present Electronically Signed On 02-15-21 07:34:42 CDT by Nasir Bailey
[2021-02-15] MEDS ORDERED: IPRATROPIUM BROM 0.5MG/2.5ML NEB SCH (08:00)
[2021-02-15] MEDS ORDERED: PNEUMOCOCCAL VACCINE 0.5 ML IMVAC ONE (08:00)
[2021-02-15] MEDS ORDERED: SPIRONOLACTONE 25 MG TABLET PO SCH (09:00)
[2021-02-15 09:07] LABS: Blood Morphology Comment NOTED (NOT SEEN); Ovalocytes 1+; Platelet Estimate ADEQ; White Blood Cell Scan OK (OK)
[2021-02-15] MEDS: METOPROLOL TAR 50 MG TAB PO SCH ×2 (09:18→21:32)
[2021-02-15] MEDS: PANTOPRAZOLE 40MG TABLET PO SCH ×2 (09:20→21:35)
[2021-02-15] MEDS: LACTOBACILLUS/ACIDOPHILUS TAB PO SCH (09:21)
[2021-02-15] MEDS: FUROSEMIDE 40 MG TABLET PO SCH (09:24)
[2021-02-15] MEDS ORDERED: FUROSEMIDE 40 MG/4 ML VIAL IV ONE (10:47)
[2021-02-15] MEDS ORDERED: NA CHLORIDE 0.9% 250 ML ONE (12:17)
--- NOTE | 2021-02-15 13:14 | CON ---
Date of Consultation: 02/15/2021 Reason For Consultation: Elevated BUN and creatinine, fluid management. History Of Present Illness: This is a pleasant 65-year-old gentleman, well known to me from the office with significant past medical history of chronic kidney disease stage 3B secondary to cardiorenal, baseline creatinine 2, GFR around 30, hypertension, advanced COPD, coronary artery disease complicated with congestive heart failure, lung cancer status post lobectomy, the patient recently admitted to the hospital with fluid overload and acute kidney injury. At that time, his Lasix has been increased to twice a day. Upon admission to the hospital, the patient required also transfusion. On discharge from the hospital, his creatinine was 2.9, above from his baseline which is around 2 to 2.2. His GFR has been dropped to 22. His baseline is between 27 to 30. At that time, apparently the patient supposed to hold his Eliquis, the patient continued to take Eliquis. The patient presented to the hospital with significant anemia, his hemoglobin down to 7.6. His kidney function has been declined. Creatinine 3.3, GFR of 18. For that reason, we have been consulted. The patient according to him has been compliant with his diuresis. Past Medical History: 1. Advanced COPD, follow up with Dr. Sawant. 2. Lung cancer status post lobectomy. 3. Coronary artery disease complicated with congestive heart failure. Echocardiogram back in July with ejection fraction of 38 with global hypokinesia. 4. Chronic kidney disease, stage 3B/4, baseline creatinine 2, GFR 27 to 30. Allergies: NO KNOWN DRUG ALLERGIES. Social History: Ex-smoker. Denied alcohol. Denied drug abuse. Family History: Positive for hypertension. Past Surgical History: Includes bronchoscopy, lobectomy, appendectomy. Review of Systems: Head and Neck: No red eye. No ear pain. GI: No nausea. No vomiting. : No polyuria. No dysuria. No hematuria. Disc Pad Plate Filler: Not applicable. Respiratory: Has shortness of breath. Cardiovascular: Has chest tightness. Endocrine: No polydipsia. Skin: No rash. Neuro: No weakness. Musculoskeletal: Generalized fatigue. Physical Examination: Vital Signs: When I saw the patient; blood pressure of 140/88. Chest: Wheezing bilateral with rales bilateral base. Heart: S1, S2. Irregular. Tachycardic. Abdomen: Soft, nontender. Extremity: No edema. Neurologic: Alert, oriented x3. No focal. Laboratory Data: On yesterday creatinine 3.3, GFR of 19. Today; sodium 140, potassium 4.5, bicarb 28, BUN 77, creatinine 3.3, GFR of 18, calcium of 9. WBC 14.8, H and H 7.6/22.5, platelets 226. Yesterday; hemoglobin 8.4. Chest x-ray; chronic congestion, cardiomegaly. Home Medications: Include dexamethasone 2 mg b.i.d., allopurinol, spironolactone, simvastatin, pantoprazole, multivitamin, metoprolol, levothyroxine, gabapentin, Lasix 40 b.i.d., folic acid, breathing treatment, calcium carbonate, cholecalciferol, Eliquis 5 mg b.i.d. Current Medications: In the hospital include Lasix, spironolactone, Eliquis, dexamethasone, levothyroxine, lorazepam, metoprolol, pantoprazole. Assessment And Plan: 1. Acute kidney injury on advanced chronic kidney disease, looked to me normal volume, mostly secondary to prerenal, secondary to atrial fibrillation/gastrointestinal loss. Does not look to me on the over volume state compared to his chest x-ray back in December. I am going to go ahead and hold on the diuresis for the time being. We will give the Lasix after the transfusion and we will monitor the patient closely. I am going to go ahead and repeat renal ultrasound and we will follow up the patient. 2. Hypertension, controlled, optimal with the presence of acute kidney injury. Holding diuresis for the time being. 3. Coronary artery disease, congestive heart failure, looked to me currently on the normal volume side. We will give diuresis only after transfusion. 4. Chronic obstructive pulmonary disease exacerbation as by primary. 5. Atrial fibrillation with rapid ventricular response. Follow up by Cardiology. 6. Gastrointestinal bleed, anemia. The patient is going to receive a transfusion. We will give Lasix after anticoagulation has been held. I am going to send for anemia workup to consider either IV iron or SHONDA. 7. Hypokalemia, resolved. time spend exam the patient face to face , discussing with patient , reviewing la and radiology date, placing order , discussing the case with staff and with other team consultan and hospitalist 65 min. LALITA/RYAN Voice ID: [id number] Report ID: [id number] MOON
--- NOTE | 2021-02-15 14:10 | P.CNS ---
Date of Consult: 02/15/21 Reason for Consult: Respiratory distress Chief Complaint: Shortness of breath History of Present Illness: Patient is 65 years of age with terminal COPD recurrent hospital admissions apparently was discharged came back again his worse these also been taking El iquis patient appears to have melenic stools increasing diuretics is steroids did really helping me he is in significant distress Allergies prednisone Adverse Reaction (Severe, Verified 12/27/20 20:48) Shortness of breath Home Medications: Cholecalciferol (Vitamin D3) [Vitamin D3] 2,000 unit PO DAILY 07/07/20 Cyclobenzaprine [Flexeril*] 5 mg PO BEDTIME PRN 07/07/20 Folic Acid 3 mg PO DAILY 07/07/20 Gabapentin [Neurontin*] 300 mg PO BIDP PRN 07/07/20 Multivitamin with Minerals [One Daily Plus Minerals] 1 tab PO DAILY 07/07/20 allopurinoL [Zyloprim*] 100 mg PO BEDTIME 07/07/20 Simvastatin 20 mg PO BEDTIME 07/25/20 Calcium Carbonate [Tums Regular*] 1,000 mg PO DAILY #30 tab 07/28/20 L.acidoph,Paracasei, B.lactis [Probiotic] 1 each PO DAILY 08/03/20 dexAMETHasone [Dexamethasone] 2 mg PO BID 10/22/20 Levothyroxine [Synthroid*] 0.1 mg PO FLREI7LF #30 tab 11/06/20 Metoprolol Succinate [Toprol Xl*] 100 mg PO BID 6AM 6PM #60 tab 11/06/20 Ipratropium Neb [Atrovent*] 0.5 mg NEB BID 12/28/20 Acetaminophen [Tylenol Extra Strength] 2 tab PO BIDP PRN 02/02/21 Fluticasone/Umeclidin/Vilanter [Trelegy Ellipta 100-62.5-25] 1 puff IH DAILY 02/02/21 LORazepam [Ativan] 0.5 mg PO DAILYPRN PRN 02/02/21 Spironolactone 1 tab PO DAILY 02/02/21 Pantoprazole [Protonix Tab] 40 mg PO BID 30 Days #60 tab 02/07/21 Albuterol Sulfate [Proair Hfa] 8.5 gm IH PRN PRN 02/14/21 Furosemide [Lasix] 40 mg PO BIDL 02/14/21 - Past Medical/Surgical History Diabetic: No -: Hypertension -: COPD -: Atrial fibrillation on chronic anticoagulation therapy -: Lung cancer(does not know which type) -: Gout -: Chronic diastolic congestive heart failure -: Chronic kidney disease stage 4 -: Iron deficiency anemia -: Hypothyroidism -: left upper lung lobectomy with lymph node resection -: appendectomy -: tonsillectomy Psychosocial/ Personal History: . Currently lives at home with his - Family History Father Medical History: Heart disease, Hypertension Notes: at 75 yo Mother Medical History: Cancer Notes: no medical history, still living Brother Medical History: Hypertension, Cancer Notes: melanoma Sister Medical History: Other (see notes) Notes: fibromyalgia - Social History Alcohol use: No CD- Drugs: No Caffeine use: No Place of Residence: Home Review of Systems General: Weakness Respiratory: Cough, Shortness of Breath Cardiovascular: Edema Physical Examination Temp Pulse Resp BP Pulse Ox 96.8 F 77 26 H 156/74 H 94 02/15/21 12:00 02/15/21 12:00 02/15/21 12:00 02/15/21 12:00 02/15/21 12:00 General: Alert, Moderate distress Respiratory: Expiratory wheezes Cardiovascular: Normal S1 S2, Abnormal S3, Edema Laboratory Data (last 24 hrs) 02/14/21 13:56: PT 16.7 H, INR 1.45, APTT 29.3 02/14/21 13:56: WBC 21.10 H* D, Hgb 8.4 L, Hct 25.6 L, Plt Count 309 D 02/14/21 13:56: Sodium 138, Potassium 3.7, BUN 71 H, Creatinine 3.34 H, Glucose 106, Magnesium 2.4, Total Bilirubin 0.2, AST 20, ALT 21, Alkaline Phosphatase 43 L, Lipase 360 - Problems (1) COPD exacerbation Onset Date: 04/27/18 Current Visit: No Status: Acute Plan: Patient is 65 years of age recurrent hospital admission terminal COPD admitted with worsening dyspnea white count is elevated patient is anemic I suspect from his bleeding renal function is at baseline oxygen satisfactory on 4 L blood pressure is elevated anticoagulants will be an absolute contraindication also stopped his aspirin patient is currently being transfused continue with steroids high risk for pneumonia his [place] pulmonary interstitial changes on the right side of his lung for calcitonin level is elevated white count elevated at low- dose levofloxacin sputum cultures increase frequency of bronchodilator
[2021-02-15] MEDS: IPRATROPIUM BROM 0.5MG/2.5ML NEB SCH ×2 (15:20→20:00)
--- NOTE | 2021-02-15 15:50 | PN ---
Date of Progress Note: 02/15/2021 The patient states he feels somewhat better today. This had been his usual pattern after he gets a b urst dose steroids. Awaiting blood transfusion, seen by Nephrology who felt the diuretic dose will b e monitored depending on how he responds to the blood transfusion. The patient states he was under t he impression he was supposed to start back on his Eliquis which he did after his hospitalization and did not notice any melena, however, he had a positive stool and obviously complication between his G I status and his medication regarding Eliquis and aspirin, which has been discontinued and steroid do ses. We will try and straighten the situation prior to his discharge. HR/MODL Voice ID: [id number] Report ID: [id number]
[2021-02-15] MEDS: dexAMETHasone 4 MG/ML VIAL IV SCH (16:37)
[2021-02-15 18:10] LABS: Hematocrit 29.1 % (39.6-49.0)
[2021-02-15] MEDS: GABAPENTIN 300 MG CAP PO PRN (21:35)
[2021-02-15] MEDS: allopurinoL 100 MG TAB PO SCH (21:35)
[2021-02-15] MEDS: ATORVASTATIN 10 MG TAB PO SCH (21:36)
[2021-02-16] MEDS: dexAMETHasone 4 MG/ML VIAL IV SCH ×2 (00:54→09:00)
[2021-02-16] MEDS: IPRATROPIUM BROM 0.5MG/2.5ML NEB SCH ×4 (02:10→19:35)
[2021-02-16] MEDS: LEVOTHYROXINE SOD 0.1 MG TAB PO SCH (06:31)
[2021-02-16 08:14] LABS: RBC Red Blood Cell Count 3.23 M/uL (4.33-5.43)
--- NOTE | 2021-02-16 08:16 | P.PN ---
Subjective Date of Service: 02/17/21 Chief Complaint: Shortness of breath Reports no worsening SOB Physical Examination - Vital Signs Temperature: 97.3 F Blood Pressure: 160/80 Pulse: 78 Respirations: 18 Pulse Ox (%): 94 - Physical Exam General: Other (+mild respi distress) HEENT: Atraumatic, Normocephalic Neck: Supple Respiratory: Clear to auscultation bilaterally Cardiovascular: No rubs, No murmurs Gastrointestinal: Soft and benign, Non-distended Musculoskeletal: No swelling Urinary: Other (No slade) Assessment And Plan - Plan # SHARITA likely 2/2 acute cardiorenal syndrome (CRS1) & diuretic use SHARITA likely 2/2 relative hypotension from rapid afib Has baseline CKD IIIB to 4 with baseline GFR of 29-38, equivalent baseline serum creatinine 1.8-2.2 SCr at 3.3 today Accurate weight daily Monitor renal panel and input and output Cont lasix + sofi, hold if SCr worsens further 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
[2021-02-16] MEDS ORDERED: SPIRONOLACTONE 25 MG TABLET PO SCH (09:00)
[2021-02-16 09:24] LABS: Albumin 2.7 g/dL (3.4-5.0); BUN Blood Urea Nitrogen 85 mg/dL (7-18); Bicarbonate 26 mmol/L (21-32); Ferritin 206.1 ng/mL (26-388); Folic Acid, (Folate) > 20.0 ng/mL (3.1-17.5); Glucose Level 123 mg/dL (74-106); Magnesium 2.7 mg/dL (1.8-2.4); Phosphorus 4.4 mg/dL (2.5-4.9); Potassium 4.4 mmol/L (3.5-5.1); Sodium Level 140 mmol/L (136-145); Thyroid Stimulating Hormone 0.241 uIU/mL (0.360-3.740); Transferrin 248 mg/dL (200-360); Uric Acid 9.5 mg/dL (3.5-7.2)
[2021-02-16] MEDS: LACTOBACILLUS/ACIDOPHILUS TAB PO SCH (09:29)
[2021-02-16] MEDS: METOPROLOL TAR 50 MG TAB PO SCH ×2 (09:30→20:20)
[2021-02-16] MEDS: levoFLOXacin 250 MG TAB PO SCH (09:30)
[2021-02-16] MEDS: PANTOPRAZOLE 40MG TABLET PO SCH ×2 (09:31→20:21)
[2021-02-16] MEDS: GABAPENTIN 300 MG CAP PO PRN (10:39)
[2021-02-16] MEDS ORDERED: FUROSEMIDE 40 MG/4 ML VIAL IV SCH (13:31)
--- NOTE | 2021-02-16 13:35 | P.PN ---
Subjective Date of Service: 02/16/21 Chief Complaint: Shortness of breath No changes still complaining of significant shortness of breath on mild exertion and lower extremity edema Review of Systems General: Weakness Respiratory: Shortness of Breath Cardiovascular: Edema Physical Examination - Vital Signs Temperature: 97.5 F Blood Pressure: 164/88 Pulse: 84 Respirations: 20 Pulse Ox (%): 97 - Physical Exam General: Alert, Moderate distress Respiratory: Expiratory wheezes Cardiovascular: Regular rate/rhythm, Edema Gastrointestinal: Normal bowel sounds, Soft and benign Assessment & Plan - Problems (Diagnosis) (1) COPD exacerbation Onset Date: 04/27/18 Current Visit: No Status: Acute Plan: S chest x-rays abnormal still very short of breath continue with bronchodilator therapy reduce dose of Decadron to 4 mg IV Q 12 at levofloxacin he is high risk for Pseudomonas lung infection that Pseudomonas isolated before anticoagulants in are absolutely contraindicated continue to monitor his hemoglobin sputum cultures have been ordered every started him back on his IV Lasix continue with spironolactone daily labs saturation satisfactory blood pressure elevated
[2021-02-16] MEDS: ENSURE ENLIVE 237 ML CAN PO SCH (15:00)
[2021-02-16] MEDS: FUROSEMIDE 40 MG/4 ML VIAL IV SCH (17:17)
--- NOTE | 2021-02-16 19:38 | PN ---
Date of Progress Note: 02/16/2021 Subjective: The patient actually seems to be better clinically, although he claims he is still signi ficantly short of breath. His O2 saturation was 96 on 2 L. His H and H now over 9. We will hold of f on the second unit of blood. He had no bowel movement as far as determining any melena. Get him o ff his Eliquis and in fact, I will switch the Decadron from IV to p.o. tonight. In the morning, if h e is stable as far as his H and H is concerned, I see no reason why he could not be discharged. HR/MODL Voice ID: [id number] Report ID: [id number]
[2021-02-16] MEDS: ATORVASTATIN 10 MG TAB PO SCH (20:20)
[2021-02-16] MEDS: dexAMETHasone 4 MG TAB PO SCH (20:21)
[2021-02-16] MEDS: SPIRONOLACTONE 25 MG TABLET PO SCH (20:21)
[2021-02-16] MEDS: allopurinoL 100 MG TAB PO SCH (20:21)
[2021-02-16] MEDS ORDERED: dexAMETHasone 4 MG/ML VIAL IV SCH (21:00)
[2021-02-17] MEDS: IPRATROPIUM BROM 0.5MG/2.5ML NEB SCH ×4 (02:00→20:00)
[2021-02-17] MEDS: LEVOTHYROXINE SOD 0.1 MG TAB PO SCH (06:21)
[2021-02-17 06:33] LABS: Hematocrit 29.2 % (39.6-49.0); RBC Red Blood Cell Count 3.36 M/uL (4.33-5.43)
[2021-02-17 06:54] LABS: Albumin 2.4 g/dL (3.4-5.0); Bilirubin Total 0.3 mg/dL (0.2-1.0); Potassium 4.4 mmol/L (3.5-5.1); Protein, Total 6.1 g/dL (6.4-8.2)
[2021-02-17 06:59] LABS: Albumin 2.4 g/dL (3.4-5.0); Magnesium 2.7 mg/dL (1.8-2.4); Phosphorus 2.9 mg/dL (2.5-4.9); Potassium 4.4 mmol/L (3.5-5.1)
[2021-02-17] MEDS: ENSURE ENLIVE 237 ML CAN PO SCH (09:00)
[2021-02-17] MEDS: LACTOBACILLUS/ACIDOPHILUS TAB PO SCH (09:06)
[2021-02-17] MEDS: SPIRONOLACTONE 25 MG TABLET PO SCH ×2 (09:07→20:34)
[2021-02-17] MEDS: PANTOPRAZOLE 40MG TABLET PO SCH ×2 (09:08→20:34)
[2021-02-17] MEDS: dexAMETHasone 4 MG TAB PO SCH ×2 (09:08→20:34)
[2021-02-17] MEDS: levoFLOXacin 250 MG TAB PO SCH (09:08)
[2021-02-17] MEDS: METOPROLOL TAR 50 MG TAB PO SCH ×2 (09:08→20:34)
[2021-02-17] MEDS: FUROSEMIDE 40 MG/4 ML VIAL IV SCH ×2 (09:09→16:57)
--- NOTE | 2021-02-17 10:41 | RAD REPORT ---
EXAM DESCRIPTION: RAD - Chest Single View - 02/17/2021 10:27 am CLINICAL HISTORY: COPD COMPARISON: Portable February 14, portable February 02 TECHNIQUE: AP portable chest image was obtained 02/17/2021 10:27 am . FINDINGS: Underlying fibrotic lung changes are again noted. The right lung field opacification has i mproved. Left lung field is stable. There remains left costophrenic angle blunting. Mediastinum is di storted by rotation on this examination. Heart and vasculature are normal. No pneumothorax. No enlarg ing pleural effusion. No acute bony abnormality seen. No acute aortic findings suspected. IMPRESSION: Partial clearing of left lung field opacification. No new or progressive finding.
--- NOTE | 2021-02-17 11:11 | P.PN ---
Subjective Date of Service: 02/17/21 Chief Complaint: COPD exacerbation patient is much better a shortness of breath has improved renal function is also improve Review of Systems Respiratory: Cough, Shortness of Breath Physical Examination - Vital Signs Temperature: 97.4 F Blood Pressure: 148/77 Pulse: 76 Respirations: 17 Pulse Ox (%): 95 - Physical Exam General: Alert Neck: Supple Respiratory: Expiratory wheezes Cardiovascular: Edema Assessment & Plan - Problems (Diagnosis) (1) COPD exacerbation Onset Date: 04/27/18 Current Visit: No Status: Acute Plan: patient is doing much better and breathing has improved continue with present therapy for not Decadron 4 mg twice a day/ continue with levofloxacin 250 mg daily for at least 2 weeks patient to remain on Decadron 2 mg twice a day for 2 weeks at home and a decreasing to 2 mg once a day he is at risk for Pseudomonas lung infection is chest x-ray does look better (2) GI bleed Current Visit: Yes Status: Acute Plan: history of GI bleed liquids would be an absolute contraindication consider starting him on the 2 weeks on low-dose aspirin plan for discharge tomorrow if stable
[2021-02-17] MEDS ORDERED: SOD FERRIC GLUC COMPLX/SUCROSE 250 MG in NA CHLORIDE 0.9% 250 ML IV SCH (13:00)
[2021-02-17] MEDS ORDERED: SOD FERRIC GLUC COMPLX/SUCROSE 125 MG in NA CHLORIDE 0.9% 100 ML IV SCH (13:00)
--- NOTE | 2021-02-17 13:48 | PN ---
Date of Progress Note: 02/17/2021 Subjective: The patient was admitted with acute kidney injury on chronic kidney disease secondary to cardiorenal. The patient also received a transfusion. Had atrial fibrillation with RVR. Physical Examination: Vital Signs: Blood pressure 148/77, pulse of 76, afebrile. The patient had good urine output. Chest: Wheezing bilateral. Heart: S1, S2. Systolic murmur. Irregular. Abdomen: Soft, nontender. Extremities: No edema. Neurologic: Alert, no focal. Laboratory Data: WBC 10.9, H and H 9.7/29.2, platelets 269. Sodium 142, potassium 4.4, bicarb 28, BUN 88, creatinine 3, calcium 8.9, phosphorus 2.9, magnesium 2.7. Current Medications: Include: 1. Levaquin. 2. Zoloft. 3. Atorvastatin. 4. Metoprolol 100 b.i.d. 5. Spironolactone 25 b.i.d. 6. Gabapentin. 7. Lasix 40 b.i.d. 8. Pantoprazole. 9. Allopurinol. Assessment And Plan: 1. Acute kidney injury on chronic kidney disease secondary to cardiorenal, nonoliguric, looked to me normal volume. I am going to continue current diuresis dose. We will follow up with Cardiology and Pulmonary. 2. Hypertension. Continue current treatment. 3. Anemia status secondary to gastrointestinal loss status post transfusion. We will follow up with primary. I am going to start the patient on IV iron. 4. Secondary hyperparathyroidism. No need for calcitriol. 5. Chronic obstructive pulmonary disease exacerbation as by primary and Pulmonary. 6. Respiratory failure secondary to cardiorenal/chronic obstructive pulmonary disease. Follow up with Pulmonary and Cardiology. 7. Atrial fibrillation with rapid ventricular response as by Cardiology. time spend exam the patient face to face , discussing with patient , reviewing la and radiology date, placing order , discussing the case with staff and with other team consultan and hospitalist 45 min. HARPAL Voice ID: [id number] Report ID: [id number]
--- NOTE | 2021-02-17 18:52 | PN ---
Date of Progress Note: 02/17/2021 Subjective: The patient states he feels somewhat better today with his main complaints still being e xertional dyspnea and generalized weakness. I discussed this case in detail with Dr. Sawant, Pulmo nology and Renal Department the multitude of issues starting with his anticoagulation scenario for hi s paroxysmal atrial fibrillation. Problem with Eliquis and aspirin, has been GI bleed. He normally has an ulcer and was obviously active bleeding. He received 1 unit. Hemoglobin now seems stable, ho wever at 9. Some iron IV will be administered here and then as an outpatient. Secondary issue was k idney function is trending down much Lasix before dehydration, tolerated and he is better on so this will be increased to b.i.d. Possibility of a procedure to eliminate the need for anticoagulation will be discussed further with Cardiology. So therefore, we have a pat ient with significant underlying COPD, steroid dependent with an active PUD, degree of renal failure and attempt to balance medication, diet, activity level to maintain his COPD. Possibly could be disc harged in a.m. if he tolerates iron and blood work is stable. HR/MODL Voice ID: [id number] Report ID: [id number]
[2021-02-17] MEDS: ATORVASTATIN 10 MG TAB PO SCH (20:34)
[2021-02-17] MEDS: allopurinoL 100 MG TAB PO SCH (20:34)
[2021-02-18] MEDS: IPRATROPIUM BROM 0.5MG/2.5ML NEB SCH ×3 (02:00→14:44)
[2021-02-18] MEDS: LEVOTHYROXINE SOD 0.1 MG TAB PO SCH (05:49)
[2021-02-18 06:34] LABS: MPV 8.1 fL (7.6-11.3); RBC Red Blood Cell Count 3.37 M/uL (4.33-5.43)
[2021-02-18 06:52] LABS: Albumin 2.5 g/dL (3.4-5.0); Bilirubin Total 0.2 mg/dL (0.2-1.0); Potassium 4.3 mmol/L (3.5-5.1); Protein, Total 6.1 g/dL (6.4-8.2)
[2021-02-18 07:39] LABS: Albumin 2.5 g/dL (3.4-5.0); Magnesium 2.5 mg/dL (1.8-2.4); Phosphorus 4.1 mg/dL (2.5-4.9); Potassium 4.3 mmol/L (3.5-5.1)
[2021-02-18] MEDS: METOPROLOL TAR 50 MG TAB PO SCH (08:34)
[2021-02-18] MEDS: levoFLOXacin 250 MG TAB PO SCH (08:34)
[2021-02-18] MEDS: FUROSEMIDE 40 MG/4 ML VIAL IV SCH (08:34)
[2021-02-18] MEDS: PANTOPRAZOLE 40MG TABLET PO SCH (08:35)
[2021-02-18] MEDS: LACTOBACILLUS/ACIDOPHILUS TAB PO SCH (08:35)
[2021-02-18] MEDS: ENSURE ENLIVE 237 ML CAN PO SCH (08:35)
[2021-02-18] MEDS: SPIRONOLACTONE 25 MG TABLET PO SCH (08:35)
[2021-02-18] MEDS: dexAMETHasone 4 MG TAB PO SCH (08:35)
[2021-02-18] MEDS ORDERED: EPOETIN ALFA-EPBX 10,000 UNIT/ML VIAL SQ SCH (11:00)
--- NOTE | 2021-02-18 11:02 | PN ---
Date of Progress Note: 02/18/2021 Subjective: The patient was admitted with acute kidney injury secondary to cardiorenal, GI bleed, AFib with RVR. The patient was maintained on diuresis, responded well. Physical Examination: Vital Signs: Blood pressure 137/81, pulse of 72, afebrile. The patient had good urine output. Weight has been decreased by 6 pounds from admission. Chest: Wheezing bilaterally. Heart: S1, S2. Systolic murmur. Abdomen: Soft, nontender. Extremity: No edema. Neuro: Alert, oriented x3. No focal. Laboratory Data: WBC 7.4, H and H 9.9/29, platelets 257. Sodium 139, potassium 4.3, bicarb 28, BUN 97, creatinine of 3, GFR of 21, calcium 9.1, phosphorus 4.1, magnesium of 2.5, albumin 2.5. Corrected calcium is 10.3. Current Medications: The patient on include Levaquin 250 daily, Epogen, IV iron, atorvastatin, spironolactone 25 b.i.d., Tylenol, gabapentin 300 b.i.d., Lasix 40 b.i.d., dexamethasone, pantoprazole, allopurinol. Assessment And Plan: 1. Acute kidney injury secondary to cardiorenal, poor perfusion, ATN, still on the wet side. I am going to continue current diuresis dose and we will monitor the patient. 2. Hypertension, controlled, optimal. We will continue to utilize blood pressure with the diuresis. Continue current spironolactone and Lasix. 3. Iron deficiency anemia status post transfusion. We will continue IV iron. For the time being, I will add single dose of Retacrit. 4. Secondary hyperparathyroidism. Calcium, PTH and phosphorus under goal. No need for calcitriol. 5. Severe disproportion in BUN and creatinine secondary to the GI bleed and poor flow secondary to congestive heart failure. No uremic symptoms. We will continue to monitor. 6. Respiratory failure, multifactorial, secondary to over volume, advanced chronic obstructive pulmonary disease. Continue current treatment. We will follow up with Pulmonary. 7. Pulmonary hypertension. Continue current medication. We will follow up. time spend exam the patient face to face , discussing with patient , reviewing la and radiology date, placing order , discussing the case with staff and with other team consultan and hospitalist 45 min. HARPAL Voice ID: [id number] Report ID: [id number] MOON
[2021-02-18 12:38] VITALS: O2SAT 98
[2021-02-18 12:55] VITALS: BP 155/83; TEMP 97.8
--- NOTE | 2021-02-18 18:29 | CON ---
Date of Consultation: 02/18/2021 Reason For Consultation: Upper GI bleed, history of duodenal ulcer. History Of Present Illness: The patient is a 65-year-old white male with history of duodenal ulcer, melenic bleed approximately 2 weeks ago, hypertension, hypertensive cardiomyopathy, diastolic congest [place] heart failure, atrial fibrillation, hypothyroidism, COPD, lung cancer status post left upper lobe resection. The patient presented to the hospital with bleeding. His hemoglobin was noted to be 8.4 on admission, decreased to 7.6. The patient had noted in chart that he has melenic stools. He gita mandi remembers that he has not had any melenic stools in hospital when Eliquis and aspirin were stoppe d and the patient was placed on Protonix twice a day. He says he went home with aspirin, Eliquis. B y mistake he thought that he was supposed to take those, but he was told not to on discharge from the hospital 2 weeks ago approximately. He has taken the Protonix it appears twice a day at home, still had melenic bleed it appears with decrease in his hemoglobin. Past Medical History: Significant for duodenal ulcer, melenic bleed February 05, 2021 with EGD revealing duodenal ulcer approximately by recollection maybe 8 mm to a cm in size in the bulb of the duodenum and also has a history of hypertension, hypertensive cardiomyopathy, diastolic congestive heart failu re, atrial fibrillation, hypothyroidism, COPD, lung cancer status post left upper lobe resection, gou t, end-stage renal disease, stage IV iron deficiency anemia, appendectomy, tonsillectomy. Medications: At home include Tylenol, aspirin, Eliquis, vitamin D, Flexeril, folic acid, Neurontin, and magnesium, multivitamin, allopurinol, simvastatin, Tums, probiotic, , leflunomide, dexa methasone, iron sulfate, Lasix, Synthroid, Toprol, Atrovent, Tylenol, Trelegy, Ativan, Aldactone, Pro tonix twice a day. Allergies: TO PREDNISONE GIVES THE REACTION OF SHORTNESS OF BREATH HE REPORTS. Social History: , 2 kids. Quit tobacco 2017. Lung infection with lung cancer and infection and no alcohol. Family History: Father had myocardial infarction, also has history of hypertension, melanoma. Pascual chong of Hodgkin lymphoma, idiopathic blood loss. Brother of hypertension, melanoma. Sister w ith fibromyalgia. Physical Examination: General: The patient is lying in bed, in no acute distress. Walking around and talking without prob jake. Vital Signs: He is 5 feet 5 inches, 124 pounds, BMI 20.6 kg/meter sq, temperature 97, pulse 77, resp irations 20-28, blood pressure 191/86, O2 saturation 97%. HEENT: Normocephalic, atraumatic. Anicteric. Pupils are equal, round, and reactive to light. Anic teric sclerae. Oropharynx is clear. Neck: Supple. No masses. Respirations: Labored. Occasional rales. Cardiac: Irregularly irregular. Abdomen: Positive bowel sounds. Soft. No tenderness. No cyanosis, no edema. Extremities: Pulses positive for clubbing, no cyanosis. Some mild edema in lower extremities. Neuro: Alert and oriented x3. Grossly nonfocal. 5/5 motor, sensation, light touch. Laboratory Data: The patient has a white count of 7.4, hemoglobin of 9.9 down to 7.6 on the fifteent h. Hematocrit 29, MCV of 86, platelet count 257. PT of 16.7, INR of 1.45, PTT of 29.3. He has sodi um 139, potassium 4.3, chloride 104, bicarb 28, BUN of 97, creatinine of 3.06, glucose 108, calcium 9 .1, phosphorus 4.1, magnesium 2.5, bilirubin of 0.2, AST of 15, ALT of 18, alkaline phosphatase 43, t otal protein 6.1, albumin 2.5, globulin 3.6. Serologies: COVID testing was negative. Chest x-ray w as clear, otherwise negative. Impression: 1.Upper gastrointestinal bleed secondary to known duodenal ulcer. EGD on February 05, 2021 revealed a d uodenal ulcer. The patient is on aspirin and Eliquis for his atrial fibrillation, though he was told to stop this. On last discharge, he continued and now has GI bleed. Told that he will be continued on b.i.d. PPI and at least to hold Eliquis and aspirin. The patient should be considered for possib le atrial fibrillation ablation therapy, so it appears he has partial control of beta blockers, which should be optimized by Cardiology as well. 2.Anemia. Hemoglobin is 8.4, 7.6, 9.6, 9.7, 9.9 during this admission. 3.History of duodenal ulcer with melenic bleed. 4.Hypertension. 5.Cardiomyopathy. 6.Diastolic congestive heart failure. 7.Atrial fibrillation. 8.Hypothyroidism. 9.Chronic obstructive pulmonary disease. 10.Lung cancer status post left upper lobe resection. 11.Gout. 12.Chronic kidney disease. 13.End-stage renal disease stage IV. 14.Iron deficiency anemia. 15.Appendectomy. 16.Tonsillectomy. Recommendation: 1.PPI therapy b.i.d. 2.Prilosec 40 mg p.o. b.i.d. 3.Monitor H and H. 4.Agree with holding aspirin plus Eliquis. 5.GI Clinic followup. 6.Agree with continue low sodium diet. 7.Possible ablation therapy for atrial fibrillation. In the meantime, continue aggressive metoprolo l therapy to control atrial fibrillation it appears in this patient. WILNER/RYAN Voice ID: [id number] Report ID: [id number]
--- NOTE | 2021-02-18 18:32 | PN ---
Date of Progress Note: 02/18/2021 The patient states he feels somewhat better today. His last chest x-ray did show some improvement. Therefore, there might have been some type of inflammatory response. We will discharge him on Levaqu in 250 mg for 2 weeks and maintain his Decadron 2 mg b.i.d. for the same amount of time. He was inst ructed to stop the Eliquis. The same way, he has been in the hospital and stay off the aspirin. He was to talk to Cardiology about doing an ablation to his . His creatinine seems to be stab ilizing on 3. He will follow up with Nephrology for some IV iron and monitoring his creatinine. He i s to stay on his Lasix b.i.d., spironolactone b.i.d. Once his potassium is okay, he is to be dischar ged and follow up with his physicians and me in a couple days. His hospitalization result is was als o seen by Gastroenterology who felt that he needs to be re-scoped if stable in 6 8 weeks. HR/MODL Voice ID: [id number] Report ID: [id number]
[2021-02-20 10:53] LABS: Vitamin D 1,25-Dihydroxy Total 38 pg/mL (18-72); Vitamin D,1,25-OH2, D2 <8 pg/mL
== END 2021-02-18 15:32 | disposition home or self-care (01) | DRG 291 ==
LOC: ER 12:27 → ERHOLD 15:03 → 2ND 19:48
PROVIDERS: ADMIT Family Medicine; ATTEND Family Medicine
PROC: 30233N1 Transfusion of Nonautologous Red Blood Cells into Peripheral Vein, Percutaneous Approach (ICD-10-PCS; principal; 2021-02-15)
DX: I13.0 Hypertensive heart and chronic kidney disease with heart failure and stage 1 through stage 4 chronic kidney disease, or unspecified chronic kidney disease (principal); J18.9 Pneumonia, unspecified organism; I50.33 Acute on chronic diastolic (congestive) heart failure; J96.90 Respiratory failure, unspecified, unspecified whether with hypoxia or hypercapnia; N17.0 Acute kidney failure with tubular necrosis; K26.4 Chronic or unspecified duodenal ulcer with hemorrhage; D62 Acute posthemorrhagic anemia; J44.0 Chronic obstructive pulmonary disease with (acute) lower respiratory infection; N18.4 Chronic kidney disease, stage 4 (severe); J44.1 Chronic obstructive pulmonary disease with (acute) exacerbation; N25.81 Secondary hyperparathyroidism of renal origin; I48.0 Paroxysmal atrial fibrillation; I25.10 Atherosclerotic heart disease of native coronary artery without angina pectoris; E03.9 Hypothyroidism, unspecified; D50.9 Iron deficiency anemia, unspecified; E87.6 Hypokalemia; M10.9 Gout, unspecified; I42.9 Cardiomyopathy, unspecified; I27.20 Pulmonary hypertension, unspecified; R00.0 Tachycardia, unspecified; Z88.8 Allergy status to other drugs, medicaments and biological substances; Z85.118 Personal history of other malignant neoplasm of bronchus and lung; Z90.49 Acquired absence of other specified parts of digestive tract; Z87.891 Personal history of nicotine dependence; Z79.01 Long term (current) use of anticoagulants; Z99.81 Dependence on supplemental oxygen; Z79.890 Hormone replacement therapy; Z79.899 Other long term (current) drug therapy; Z20.822 Contact with and (suspected) exposure to COVID-19
CPT/HCPCS: 36415; 36430; 71045; 80048; 80053; 80069; 80076; 82274; 82607; 82652; 82728; 82746; 82947; 83540; 83605; 83690; 83735; 83880; 83970; 84145; 84443; 84466; 84484; 84550; 85014; 85018; 85025; 85027; 85044; 85610; 85730; 86850; 86900; 86901; 87040; 90732; 93005; 94640; 96374; 96375; 99285; J0282; J1100; J1940; J2916; J2930; J3475; J7050; J7060; J8540; P9016; Q5106; U0003

== ENCOUNTER 2021-03-07 16:33 | Inpatient (IN) | payer BC, OTHER ==
[2021-03-07 17:58] LABS: Absolute Lymphocytes (CBC) 0.1 K/uL (0.7-4.9); Basophils % 0.1 % (0-1.3); Hematocrit 35.3 % (39.6-49.0); Lymphocytes % 1.6 % (15.3-44.8); MPV 8.9 fL (7.6-11.3); RBC Red Blood Cell Count 3.97 M/uL (4.33-5.43)
--- NOTE | 2021-03-07 18:03 | RAD REPORT ---
EXAM DESCRIPTION: RAD - Chest Single View - 03/07/2021 5:54 pm CLINICAL HISTORY: shortness of breath, COPD exacerbation COMPARISON: Portable February 17 TECHNIQUE: AP portable chest image was obtained 03/07/2021 5:54 pm . FINDINGS: Left hemithorax volume is reduced compared to the right. There is elevation of the left he midiaphragm. No history of left-sided lobectomy. There is apical scarring and pleural thickening. Mario Alberto ateral costophrenic angle blunting present. No acute mass or infiltrate in the left lung field. Fibro tic lung pattern prominent on the right. Pattern is slightly worse than February 17 and superimposed inf iltrate is suspected. Heart and vasculature are normal. No pneumothorax or enlarging pleural effusion. No acute bony abnor mality seen. No acute aortic findings suspected. IMPRESSION: Patient has extensive baseline COPD. Interstitial stranding in the right lung field is slightly worse than on the February 17 and could be ac homar infiltrate superimposed on fibrosis.
[2021-03-07 18:04] LABS: Protime INR 1.03
[2021-03-07] MEDS ORDERED: METOPROLOL TARTRATE 5 MG/5 ML INJ IV ONE (18:11)
[2021-03-07] MEDS ORDERED: LEVALBUTEROL 1.25 MG/3 ML NEB ONE (18:11)
[2021-03-07] MEDS ORDERED: dexAMETHasone 10 MG/ML VIAL ONE (18:11)
[2021-03-07 18:20] LABS: ALT/SGPT 18 U/L (12-78); AST/SGOT 25 U/L (15-37); Albumin 2.7 g/dL (3.4-5.0); Alkaline Phosphatase 71 U/L (45-117); BUN Blood Urea Nitrogen 79 mg/dL (7-18); Bicarbonate 28 mmol/L (21-32); Bilirubin Direct < 0.1 mg/dL (0-0.2); Bilirubin Total 0.3 mg/dL (0.2-1.0); Glucose Level 111 mg/dL (74-106); Magnesium 2.7 mg/dL (1.8-2.4); NT PRO-BNP 5589 pg/mL (<125); Potassium 5.5 mmol/L (3.5-5.1); Protein, Total 7.6 g/dL (6.4-8.2); Sodium Level 136 mmol/L (136-145); Troponin (Emerg Dept Use Only) 0.06 ng/mL (0.0-0.045)
[2021-03-07 18:46] LABS: Platelet Estimate ADEQ; White Blood Cell Scan OK (OK)
[2021-03-07 18:47] LABS: Blood Morphology Comment NOT SEEN (NOT SEEN)
[2021-03-07] MEDS ORDERED: LORazepam 2 MG/ML VIAL ONE ×2 (18:47→19:46)
--- NOTE | 2021-03-07 18:52 | EDPHYS ---
Physician Documentation [facility] Name: Angelo Narvaez Age: 65 yrs Sex: Male : 1955 Arrival Date: 03/07/2021 Time: 16:35 Bed 8 Private MD: AJIT Narvaez Osei HPI: 03/07 17:33 This 65 yrs old Male presents to ER via Wheelchair with complaints of m Shortness Of Breath - copd exacerbation. 17:33 The patient has shortness of breath at rest. Onset: The symptoms/episode began/occurred jmm gradually, 5 day(s) ago. Duration: The symptoms are continuous, and are steadily getting worse. The patient's shortness of breath has no apparent modifying factors. Associated signs and symptoms: Pertinent positives: non-productive cough. The patient has experienced similar episodes in the past. Historical: - Allergies: 18:12 Prednisone; ll1 - PMHx: 18:12 COPD; kidney disease; Atrial Fib; Pneumothorax; Lung Cancer; HTN; Gout; Rheumatoid ll1 Arthritis; C-diff; - PSHx: 18:12 Appendectomy; ll1 - Immunization history:: Client reports receiving the 2nd dose of the Covid vaccine. - Social history:: Smoking status: Patient reports the use of cigarette tobacco products, denies chronic smoking, but will smoke occasionally. ROS: 17:33 Constitutional: Negative for fever, chills, and weight loss, Cardiovascular: Negative jmm for chest pain, palpitations, and edema. 17:33 Respiratory: Positive for cough, shortness of breath. 17:33 All other systems are negative. Exam: 17:33 Head/Face: atraumatic. Eyes: EOMI, no conjunctival erythema appreciated ENT: Moist jmm Mucus Membranes Neck: Trachea midline, Supple Chest/axilla: Normal chest wall appearance and motion. Cardiovascular: Regular rate and rhythm. No edema appreciated Abdomen/GI: Non distended, soft Back: Normal ROM Skin: General appearance color normal MS/ Extremity: Moves all extremities, no obvious deformities appreciated, no edema noted to the lower extremities Neuro: Awake and alert, normal gait Psych: Behavior is normal, Mood is normal, Patient is cooperative and pleasant 17:33 Constitutional: The patient appears alert, awake, anxious, uncomfortable. 17:33 Respiratory: moderate respiratory distress is noted, Respirations: labored breathing, that is mild, Breath sounds: wheezing: that is moderate, is scattered. Vital Signs: 17:16 BP 127 / 79; Pulse 108; Resp 26 S; Temp 97.6(TE); Pulse Ox 98% on 2 lpm NC; Weight ca1 57.15 kg (R); Height 5 ft. 5 in. (165.10 cm) (R); 18:48 BP 118 / 84; Pulse 125; Resp 26; Pulse Ox 98% on 2 lpm NC; ll1 19:49 BP 121 / 70; Pulse 145; Resp 24; Pulse Ox 97% on 2 lpm NC; rr5 20:20 BP 113 / 75; Pulse 95; Resp 21; Pulse Ox 98% on 2 lpm NC; rr5 17:16 Body Mass Index 20.97 (57.15 kg, 165.10 cm) ca1 MDM: 17:36 Patient medically screened. [facility] 18:48 Data reviewed: vital signs, nurses notes. ED course: I discussed the patient with Dr. nickolas Wilkins whom accepted the patient. . 03/07 17:33 Order name: Basic Metabolic Panel; Complete Time: 18:26 [facility] 03/07 17:33 Order name: CBC with Diff; Complete Time: 18:51 [facility] 03/07 17:33 Order name: LFT's; Complete Time: 18:26 [facility] 03/07 17:33 Order name: Magnesium; Complete Time: 18:26 [facility] 03/07 17:33 Order name: NT PRO-BNP; Complete Time: 18:26 [facility] 03/07 17:33 Order name: PT-INR; Complete Time: 18:10 [facility] 03/07 17:33 Order name: Troponin (emerg Dept Use Only); Complete Time: 18:26 [facility] 03/07 17:33 Order name: XRAY Chest (1 view); Complete Time: 18:04 [facility] 03/07 18:07 Order name: COVID-19 : Document "Date of Symptom Onset" if Symptomatic. bp 03/07 18:47 Order name: CBC Smear Scan; Complete Time: 18:51 [facility] 03/07 19:27 Order name: SARS-COV-2 RT PCR; Complete Time: 19:31 [facility] 03/07 17:33 Order name: EKG; Complete Time: 17:34 [facility] 03/07 17:33 Order name: Cardiac monitoring; Complete Time: 18:07 [facility] 03/07 17:33 Order name: EKG - Nurse/Tech; Complete Time: 18:07 [facility] 03/07 17:33 Order name: IV Saline Lock; Complete Time: 17:49 [facility] 03/07 17:33 Order name: Labs collected and sent; Complete Time: 17:49 [facility] 03/07 17:33 Order name: O2 Per Protocol; Complete Time: 17:49 [facility] 03/07 17:33 Order name: O2 Sat Monitoring; Complete Time: 17:49 [facility] 03/07 18:58 Order name: EKG - Nurse/Tech; Complete Time: 21:18 jm Administered Medications: 17:47 CANCELLED (allergy): SOLU-Medrol (methylPrednisoLONE) 125 mg IVP once [facility] 17:50 Drug: Metoprolol 5 mg Route: IVP; Site: right antecubital; ll1 17:55 Drug: Metoprolol 5 mg Route: IVP; Site: right antecubital; ll1 18:09 Drug: Decadron - Dexamethasone 10 mg Route: IVP; Site: right antecubital; ll1 18:10 Drug: Xopenex (levalbuterol) (3) 1.25 mg Route: Inhalation; ll1 18:10 Drug: Metoprolol 5 mg Route: IVP; Site: right antecubital; ll1 18:29 CANCELLED (different dose used): Ativan (LORazepam) 0.5 mg IVP once [facility] 18:35 Drug: Ativan (LORazepam) 0.25 mg Route: IVP; Site: right antecubital; ll1 20:40 Follow up: Response: No adverse reaction rr5 19:20 CANCELLED (different dose used): Digoxin 0.25 mg IVP once [facility] 19:45 Drug: Aspirin Chewable Tablet 324 mg Route: PO; rr5 20:45 Follow up: Response: No adverse reaction rr5 19:48 Drug: Digoxin 0.5 mg {Note: HR 145 BP 121/70.} Route: IVP; Site: right antecubital; rr5 21:17 Follow up: Response: No adverse reaction rr5 19:49 Drug: Kayexalate (polystyrene) 60 grams Route: PO; rr5 21:17 Follow up: Response: No adverse reaction rr5 19:49 Drug: Pepcid (famotidine) 20 mg Route: IVP; Site: right antecubital; rr5 21:17 Follow up: Response: No adverse reaction rr5 Disposition: 03/08 09:37 Co-signature as Attending Physician, Osei Narvaez MD I agree with the assessment and joseline plan of care. Disposition: 03/07/21 18:51 Hospitalization ordered by Danial Wilkins for Inpatient Admission. Preliminary diagnosis are Chronic obstructive pulmonary disease with (acute) exacerbation, Atrial fibrillation and flutter. - Bed requested for Telemetry/MedSurg (Inpatient). - Status is Inpatient Admission. rr5 - Condition is Stable. - Problem is an acute exacerbation. - Symptoms have improved. Signatures: Dispatcher [employer] [facility] Osei Narvaez MD MD cha Mickail, Joel, PA PA [facility] Madai Lowe RN RN tl1 Timothy Flores RN RN rr5 Catracho Paula RN RN ll1 Corrections: (The following items were deleted from the chart) 03/07 17:47 17:33 SOLU-Medrol (methylPrednisoLONE) 125 mg IVP once ordered. [facility] 18:25 18:12 BiPap ([employer] Only)+[id number].RAD.[email or web address] ordered. [facility] 18:29 18:27 Ativan (LORazepam) 0.5 mg IVP once ordered. [facility] 18:39 18:07 CORONAVIRUS ordered. [facility] 19:20 19:19 Digoxin 0.25 mg IVP once ordered. [facility] 19:27 18:15 Arterial Blood Gas+[id number].LAB.BRZ ordered. [facility] 20:59 18:51 Hospitalization Ordered by Danial Wilkins MD for Inpatient Admission. Preliminary tl1 diagnosis is Chronic obstructive pulmonary disease with (acute) exacerbation; Atrial fibrillation and flutter. Bed requested for Telemetry/MedSurg (Inpatient). Status is Inpatient Admission. Condition is Stable. Problem is an acute exacerbation. Symptoms have improved. [facility] 21:37 20:59 03/07/2021 18:51 Hospitalization Ordered by Danial Wilkins MD for Inpatient rr5 Admission. Preliminary diagnosis is Chronic obstructive pulmonary disease with (acute) exacerbation; Atrial fibrillation and flutter. Bed requested for Telemetry/MedSurg (Inpatient). Status is Inpatient Admission. Condition is Stable. Problem is an acute exacerbation. Symptoms have improved. tl1
--- NOTE | 2021-03-07 18:52 | ER ---
Nurse's Notes [facility] Name: Angelo Narvaez Age: 65 yrs Sex: Male : 1955 Arrival Date: 03/07/2021 Time: 16:35 Bed 8 Private MD: Diagnosis: Chronic obstructive pulmonary disease with (acute) exacerbation;Atrial fibrillation and flutter Presentation: 03/07 17:16 Chief complaint: Patient states: SOB x 5 days, continuous O2 at 2LPM at home. I also ca1 noticed my heart is on A-fib in and out since Friday. Coronavirus screen: Client denies travel out of the [place] in the last 14 days. shortness of breath, Client presents with at least one sign or symptom that may indicate coronavirus-19. Standard/surgical mask placed on the client. Provider contacted for isolation considerations. Ebola Screen: Patient negative for fever greater than or equal to 101.5 degrees Fahrenheit, and additional compatible Ebola Virus Disease symptoms Patient denies exposure to infectious person. Patient denies travel to an Ebola-affected area in the 21 days before illness onset. No symptoms or risks identified at this time. Initial Sepsis Screen: Does the patient meet any 2 criteria? No. Patient's initial sepsis screen is negative. Does the patient have a suspected source of infection? No. Patient's initial sepsis screen is negative. Risk Assessment: Do you want to hurt yourself or someone else? Patient reports no desire to harm self or others. Onset of symptoms was March 07, 2021. 17:16 Method Of Arrival: Wheelchair ca1 17:16 Acuity: STEPHIE 2 ca1 Historical: - Allergies: 18:12 Prednisone; ll1 - PMHx: 18:12 COPD; kidney disease; Atrial Fib; Pneumothorax; Lung Cancer; HTN; Gout; Rheumatoid ll1 Arthritis; C-diff; - PSHx: 18:12 Appendectomy; ll1 - Immunization history:: Client reports receiving the 2nd dose of the Covid vaccine. - Social history:: Smoking status: Patient reports the use of cigarette tobacco products, denies chronic smoking, but will smoke occasionally. Screenin:51 Abuse screen: Denies threats or abuse. Nutritional screening: No deficits noted. ll1 Tuberculosis screening: No symptoms or risk factors identified. Fall Risk IV access (20 points). Gait- Weak (10 pts.). Total Haskins Fall Scale indicates Low Risk Score (25-44 pts). Fall prevention measures have been instituted. Side Rails Up X 2 Frequent Obs/Assesments occuring As available Patient and Family Educated on Fall Prevention Program and strategies. Assessment: 18:50 General: Appears uncomfortable, ill, Behavior is calm, cooperative, appropriate for ll1 age. Pain: Denies pain. Neuro: No deficits noted. Cardiovascular: Reports chest pain, shortness of breath, Heart tones S1 S2 Capillary refill < 3 seconds Clubbing of nail beds is present JVD is absent Patient's skin is warm and dry. Rhythm is atrial fibrillation Chest pain. Respiratory: Airway is patent Trachea midline Respiratory effort is labored, Respiratory pattern is symmetrical, tachypnea Breath sounds are diminished bilaterally. the patient has severe shortness of breath. Vital Signs: 17:16 BP 127 / 79; Pulse 108; Resp 26 S; Temp 97.6(TE); Pulse Ox 98% on 2 lpm NC; Weight ca1 57.15 kg (R); Height 5 ft. 5 in. (165.10 cm) (R); 18:48 BP 118 / 84; Pulse 125; Resp 26; Pulse Ox 98% on 2 lpm NC; ll1 19:49 BP 121 / 70; Pulse 145; Resp 24; Pulse Ox 97% on 2 lpm NC; rr5 20:20 BP 113 / 75; Pulse 95; Resp 21; Pulse Ox 98% on 2 lpm NC; rr5 17:16 Body Mass Index 20.97 (57.15 kg, 165.10 cm) ca1 ED Course: 16:35 Patient arrived in ED. as 17:16 Arm band placed on right wrist. ca1 17:16 EKG completed in triage. Results shown to MD. ca1 17:20 Patient placed in an exam room, on oxygen, on campus monitor, on pulse oximetry. ca1 17:21 Triage completed. ca1 17:31 Tato Ridley PA is PHCP. jmm 17:31 Osei Narvaez MD is Attending Physician. jmm 17:49 Catracho Paula, NIK is Primary Nurse. ll1 17:54 XRAY Chest (1 view) In Process Unspecified. EDMS 18:00 Inserted saline lock: 20 gauge in right antecubital area, using aseptic technique. ll1 Blood collected. 18:49 Danial Wilkins MD is Hospitalizing Provider. m 18:51 Patient has correct armband on for positive identification. Bed in low position. Call ll1 light in reach. Side rails up X2. classroom monitor on. Pulse ox on. NIBP on. 21:21 No provider procedures requiring assistance completed. Patient admitted, IV remains in rr5 place. intact, No redness/swelling at site. Administered Medications: 17:47 CANCELLED (allergy): SOLU-Medrol (methylPrednisoLONE) 125 mg IVP once [facility] 17:50 Drug: Metoprolol 5 mg Route: IVP; Site: right antecubital; ll1 17:55 Drug: Metoprolol 5 mg Route: IVP; Site: right antecubital; ll1 18:09 Drug: Decadron - Dexamethasone 10 mg Route: IVP; Site: right antecubital; ll1 18:10 Drug: Xopenex (levalbuterol) (3) 1.25 mg Route: Inhalation; ll1 18:10 Drug: Metoprolol 5 mg Route: IVP; Site: right antecubital; ll1 18:29 CANCELLED (different dose used): Ativan (LORazepam) 0.5 mg IVP once [facility] 18:35 Drug: Ativan (LORazepam) 0.25 mg Route: IVP; Site: right antecubital; ll1 20:40 Follow up: Response: No adverse reaction rr5 19:20 CANCELLED (different dose used): Digoxin 0.25 mg IVP once [facility] 19:45 Drug: Aspirin Chewable Tablet 324 mg Route: PO; rr5 20:45 Follow up: Response: No adverse reaction rr5 19:48 Drug: Digoxin 0.5 mg {Note: HR 145 BP 121/70.} Route: IVP; Site: right antecubital; rr5 21:17 Follow up: Response: No adverse reaction rr5 19:49 Drug: Kayexalate (polystyrene) 60 grams Route: PO; rr5 21:17 Follow up: Response: No adverse reaction rr5 19:49 Drug: Pepcid (famotidine) 20 mg Route: IVP; Site: right antecubital; rr5 21:17 Follow up: Response: No adverse reaction rr5 Outcome: 18:51 Decision to Hospitalize by Provider. jmm 21:21 Admitted to Med/surg accompanied by nurse, via stretcher, room 415, with oxygen, with rr5 chart, Report called to james 21:21 Condition: stable 21:21 Instructed on the need for admit. 21:37 Patient left the ED. rr5 Signatures: Dispatcher [employer] EDMS Tato Ridley PA PA jmm Martinez, Amelia as Roque, Raymond, RN RN rr5 Diamond Arreola RN RN Catracho Sheehan RN RN ll1
[2021-03-07] MEDS ORDERED: DIGOXIN 0.25 MG/ML AMP ONE (19:46)
[2021-03-07] MEDS ORDERED: SOD POLYSTYREN SUL 15 GM/60 ML UCUP ONE ×2 (19:46→19:50)
[2021-03-07] MEDS ORDERED: ASPIRIN 81 MG CHEWABLE TABLET ONE (19:46)
[2021-03-07] MEDS ORDERED: FAMOTIDINE 20 MG/2 ML VIAL IV ONE (19:55)
[2021-03-07] MEDS ORDERED: ACETAMINOPHEN 500 MG TAB PO PRN (20:17)
[2021-03-07] MEDS ORDERED: ONDANSETRON 4 MG/2 ML VIAL IV PRN (20:17)
[2021-03-07] MEDS ORDERED: IPRATROPIUM BROM 0.5MG/2.5ML NEB PRN (20:17)
[2021-03-07 22:26] VITALS: BMI 21.0
[2021-03-07] MEDS: DIGOXIN 0.25 MG/ML AMP IV SCH (23:28)
[2021-03-07] MEDS: IPRATROPIUM BROM 0.5MG/2.5ML NEB SCH (23:59)
[2021-03-08] MEDS ORDERED: GABAPENTIN 300 MG CAP PO PRN ×2 (00:03→12:47)
[2021-03-08] MEDS ORDERED: LORAZEPAM 0.5 MG TABLET PO PRN ×2 (00:06→12:47)
[2021-03-08] MEDS: SPIRONOLACTONE 25 MG TABLET PO SCH ×3 (00:53→20:59)
[2021-03-08] MEDS: FUROSEMIDE 40 MG TABLET PO SCH ×2 (00:54→08:57)
[2021-03-08] MEDS: dexAMETHasone 4 MG/ML VIAL IV SCH ×2 (00:58→08:57)
[2021-03-08] MEDS: ATORVASTATIN 10 MG TAB PO SCH ×2 (00:59→20:57)
[2021-03-08] MEDS: allopurinoL 100 MG TAB PO SCH ×2 (00:59→20:58)
[2021-03-08] MEDS ORDERED: CYCLOBENZAPRINE 10 MG TAB PO SCH ×2 (01:00→21:00)
[2021-03-08] MEDS: IPRATROPIUM BROM 0.5MG/2.5ML NEB SCH ×5 (02:30→20:15)
[2021-03-08] MEDS: DIGOXIN 0.25 MG/ML AMP IV SCH (03:07)
[2021-03-08 04:01] LABS: Absolute Lymphocytes (CBC) 0.1 K/uL (0.7-4.9); Basophils % 0.1 % (0-1.3); Hematocrit 29.3 % (39.6-49.0); Lymphocytes % 1.7 % (15.3-44.8); MPV 8.7 fL (7.6-11.3); RBC Red Blood Cell Count 3.29 M/uL (4.33-5.43)
[2021-03-08 04:32] LABS: Potassium 4.4 mmol/L (3.5-5.1)
[2021-03-08] MEDS: METOPROLOL XL 100 MG TAB PO SCH ×2 (05:33→05:34)
[2021-03-08] MEDS ORDERED: LEVOTHYROXINE SOD 0.1 MG TAB PO SCH (06:30)
--- NOTE | 2021-03-08 07:18 | EKG ---
Test Date: 2021-03-07 Test Time: 17:26:48 Medical Driver: HARVEY MEASUREMENT RESULTS: Intervals: Rate: 148 VT: QRSD: 108 QT: 312 QTc: 489 [place]: P: VT: QRS: 119 T: 55 INTERPRETIVE STATEMENTS: Atrial fibrillation with rapid ventricular response Right axis deviation Incomplete right bundle branch block Nonspecific ST abnormality, probably digitalis effect Abnormal ECG Compared to ECG 02/17/2021 01:37:34 Right-axis deviation now present Incomplete right bundle-branch block now present ST (T wave) deviation now present Sinus rhythm no longer present Right bundle-branch block no longer present Myocardial infarct finding no longer present Electronically Signed On 03-08-21 07:17:35 CDT by Nasir Bailey
[2021-03-08] MEDS ORDERED: PANTOPRAZOLE 40MG TABLET PO SCH (07:30)
[2021-03-08] MEDS: ASPIRIN EC 81 MG TAB PO SCH (08:56)
[2021-03-08] MEDS ORDERED: SPIRONOLACTONE 25 MG TABLET PO SCH (09:00)
[2021-03-08] MEDS ORDERED: PNEUMOCOCCAL VACCINE 0.5 ML IMVAC ONE (09:00)
[2021-03-08] MEDS: DILTIAZEM HCL 120 MG SR CAP PO SCH (09:52)
[2021-03-08] MEDS ORDERED: FUROSEMIDE 40 MG/4 ML VIAL IV ONE (10:54)
[2021-03-08] MEDS ORDERED: CYCLOBENZAPRINE 10 MG TAB PO PRN (12:47)
[2021-03-08] MEDS ORDERED: GLUCAGON 1 MG/VIAL IM PRN (13:22)
--- NOTE | 2021-03-08 13:23 | CON ---
Date of Consultation: 03/08/2021 Reason For Consultation: COPD and atrial fibrillation. History Of Present Illness: Mr. Narvaez is very well known to me. He has COPD, oxygen dependent at home. He has renal insufficiency with chronic renal disease stage 4, paroxysmal atrial fibrillation , hypertension, and lung cancer. He to the hospital with COPD exacerbation. He has prett y much been in chronic atrial fibrillation recently. He is on metoprolol 100 b.i.d. He is not a can didate for anticoagulation down the road, but he did have pulmonary issues, renal failure, COPD that have became difficult to manage. He comes in with COPD exacerbation. No chest pain. No syncope. No palpitation. No fever or chills. He denied any nausea or vomiting or diaphoresis. He denied PND, orthopnea, pedal edema. Allergies: HE IS ALLERGIC TO PREDNISONE. Review of Systems: Negative. Social History: Positive for tobacco in the past. Family History: Positive for heart disease and dyslipidemia. Home Medications: Include inhalers, Lasix, Neurontin, Protonix, metoprolol, Zocor, Aldactone, allopu rinol, and steroids. Physical Examination: General: He is in no acute distress. Vital Signs: O2 saturation is adequate on oxygen. Atrial fibrillation, rate of 83. Afebrile. HEENT: Negative. Neck: Supple with no bruit. Chest: Revealed expiratory wheezes. Cardiac: Revealed atrial fibrillation. Abdomen: Benign. Extremities: Revealed no clubbing, cyanosis, or edema. Diagnostic Data: Showed troponin of 0.07. BNP is 9197. Creatinine is . Hemoglobin . Chest x-ray showed pulmonary fibrosis, COPD and may be an infiltrate. Impression: 1.Chronic atrial fibrillation, on metoprolol 100 b.i.d. He is a good candidate for ablation and Benedict melgoza has been unable to redo because of his renal failure as well as because of his chronic obstruct guanaco pulmonary disease exacerbation and multiple admissions. I will suggest to get him off the metopr olol. He is not a candidate for sotalol or amiodarone. I think we need to try him on a calcium benites trav hannah chronic obstructive pulmonary disease exacerbation. I discussed the case furt her with Dr. Sawant and Dr. Wilkins. We will deal with his atrial fibrillation once he is stable. 2.Renal insufficiency. He needs Nephrology followup . 3.Anemia. 4.Elevated troponin and BNP secondary to chronic obstructive pulmonary disease exacerbation and hypo melissa. His other problems include rheumatoid arthritis, hypertension, are stable at this po int. ENRIQUE/MODL Voice ID: [id number] Report ID: [id number]
[2021-03-08] MEDS ORDERED: D50W 25 GM/50 ML VIAL IV PRN (13:31)
[2021-03-08] MEDS: INSULIN -REGULAR HUMAN 50 UNIT/0.5 ML ML SQ SCH ×2 (16:30→21:00)
[2021-03-08] MEDS ORDERED: FUROSEMIDE 40 MG TABLET PO SCH (17:00)
[2021-03-08] MEDS: FUROSEMIDE 40 MG/4 ML VIAL IV SCH (17:38)
--- NOTE | 2021-03-08 18:59 | CON ---
Date of Consultation: 03/08/2021 Reason For Consultation: Elevated BUN and creatinine, fluid management. History Of Present Illness: This is a pleasant unfortunate 65-year-old gentleman with significant past medical history of advanced COPD, follows up with Dr. Sawant, lung cancer status post lobectomy, coronary artery disease complicated with congestive heart failure, ejection fraction of 38% EF with global hypokinesia, chronic kidney disease stage 4, last creatinine 2.7 with GFR 20. The patient recently discharged from the hospital on the after CHF exacerbation and acute kidney injury. Apparently, the patient was doing well on Lasix 40 mg b.i.d., spironolactone 25 b.i.d. On Friday, the patient started having some shortness of breath and difficulty breathing, called to Dr. Sawant, at that time was re-initiated on his steroid again. The patient continued on his diuresis. According to him, he felt slightly better for only Friday and then symptoms worse back, yesterday called to the office complaining from shortness of breath. Upon the conversation over the phone, the patient has difficulty even completing sentence. For that reason, directed to the ER. In the ER, found to have elevation in BUN and creatinine, creatinine 3.4 and GFR of 18. For that reason, we have been consulted. The patient also has hyperkalemia with potassium 5.5. The patient denied taking any nonsteroidal. Again, the patient is still on the same diuresis. Past Medical History: Includes; 1. Advanced COPD. Follows up with Dr. Sawant. 2. Lung cancer, status post lobectomy. 3. Coronary artery disease complicated with congestive heart failure and global hypokinesia, ejection fraction of 38%. 4. Chronic kidney disease, stage 4, baseline creatinine 2.7, GFR of 20. Allergies: NO KNOWN DRUG ALLERGIES. Social History: Ex-smoker. Denied alcohol. Denied drug abuse. Family History: Positive for hypertension. Past Surgical History: Includes bronchoscopy, lobectomy, appendectomy. Review of Systems: Head and Neck: No red eye. No ear pain. GI: No nausea. No vomiting. : No polyuria. No dysuria. No hematuria. Director Of Fundraising: Not applicable. Respiratory: Has shortness of breath. Has cough. Cardiovascular: Has orthopnea. Endocrine: No polydipsia. Skin: No rash. Neuro: Generalized weakness. Musculoskeletal: Generalized fatigue. Physical Examination: Vital Signs: When I saw the patient; blood pressure of 137/72, pulse of 99, afebrile. Chest: Crackles with mild wheezing bilateral. Heart: S1, S2. Systolic murmur. Irregular. Abdomen: Soft, nontender. Extremity: No edema. Neuro: Alert, oriented x3. No focal. Laboratory Data: Chest x-ray; still cardiomegaly, no significant congestion compared to one before. Sodium 139, potassium 4.4, bicarb 29, BUN 82, creatinine 3.3, GFR of 19, calcium 9.1. H and H 9.9/29.3. Yesterday chemistry; creatinine 3.4, GFR of 18, potassium 5.5. BNP 5589, today 9100. Current Medications: The patient on include Lasix 40 mg b.i.d., spironolactone 25 b.i.d., aspirin, calcium carbonate, atorvastatin, metoprolol, lorazepam, gabapentin. Assessment And Plan: 1. Acute kidney injury on advanced chronic kidney disease secondary to cardiorenal. I am going to go ahead and change the Lasix to IV for better efficacy. We will give the patient extra dose of Lasix today. Continue spironolactone. I had long discussion with the patient that yes we can accept marginal decline in the kidney function in favor of establishing better volume control to avoid any respiratory distress. The patient verbalized understanding. 2. Hyperkalemia secondary to renal failure, resolved. Continue spironolactone. 3. Hypertension. Metoprolol has been discontinued by Cardiology, switched to Cardizem to avoid any exacerbation of the respiratory, I agree. We will follow up with Cardiology. 4. Atrial fibrillation. Switched to Cardizem. We will follow up with Cardiology. 5. Advanced chronic obstructive pulmonary disease with exacerbation as by Pulmonary. Case discussed with Dr. Wilkins, agreed on the plan. Time spent discussing with the patient, examining the patient, [id number] withthe patient, placing orders, discussing the case with our steam crane operator including nursing, discussing the case with the other subspecialty including Cardiology and hospitalist 65 minutes. HARPAL Voice ID: [id number] Report ID: [id number] [facility] HOSPITALSandy
--- NOTE | 2021-03-08 19:08 | PN ---
Date of Progress Note: 03/08/2021 The patient states he feels considerably better this afternoon and in fact clinically he is. We will decrease his Decadron to 4 mg per day. Apparently, this is what he was on post hospitalization coup le of weeks ago, then he finally was suppose to cut back to 2 mg total per day. Whether this is play ing a part with this incident happened or not. The normal I think his baseline probably should be ma inly 4 mg. He was seen by Nephrology, Cardiology for possibility of the beta-blockers interfering wi th his COPD status, therefore switched him to Cardizem. His blood sugars are borderline. We will pu t back on a sliding scale and observe overnight. HR/MODL Voice ID: [id number] Report ID: [id number]
[2021-03-08] MEDS: dexAMETHasone 4 MG TAB PO SCH (20:58)
[2021-03-08] MEDS: PANTOPRAZOLE 40MG TABLET PO SCH (20:58)
[2021-03-08] MEDS ORDERED: HOME MED 1 EA UNK (Simvastatin [Simvastatin] 20 MG Tablet) PO SCH (21:00)
[2021-03-08] MEDS ORDERED: allopurinoL 100 MG TAB PO SCH ×2 (21:00)
[2021-03-08] MEDS: ACETAMINOPHEN 500 MG TAB PO PRN (21:08)
--- NOTE | 2021-03-08 21:50 | HP ---
Date of Admission: 03/07/2021 Entrance Complaint: Shortness of breath. History Of Present Illness: The patient has a long history of acute exacerbations of COPD. Over the past few years, he has also developed some atrial fibrillation with rapid ventricular response. Thi s was what brought him to the emergency room on this occasion. He stated he had dropped his predniso ne dose from 4 mg to 2 mg 3 or 4 days prior to this episode, became gradually dyspneic, significant e nough that he felt he needed to be seen in the emergency room where in the past he has responded quit e well to steroid therapy. The patient was seen by Cardiology on an outpatient basis since his last hospitalization a couple of weeks ago in regard to whether or not he could have a procedure done to h elp with his atrial fibrillation as he was having some GI bleed on Eliquis. That consensus was due t o his underlying lung pathology, which is significant COPD, who is not a candidate for ablation and/o r Watchman procedure. Past Medical History: As mentioned above, the patient has a long history of COPD, atrial fib, pneumo thorax, lung cancer, hypertension, and diagnosed with rheumatoid arthritis as well; however, after th e last GI bleed, it was felt to be duran to discontinue his medication for this. He also has atrial f ib, which is typically under good control. Family History: Noncontributory. Social History: The patient does smoke some. Physical Examination: General: The patient is obviously acutely dyspneic elderly male. Vital Signs: Stable. Head and Neck: Normocephalic. Pupils equal and reactive to light and accommodation. Fundi negative . Trachea midline. Thyroid not palpable. ENT: Negative. Chest: Slight use of accessory muscles to breathe. High-pitched rhonchi throughout. Decreased air entry in both bases. Cardiovascular: PMI in midclavicular line. Heart: Sounds normal. Peripheral pulses are present and equal bilaterally. Abdomen: No organomegaly. Bowel sounds present. Extremities: Good tone and movement bilaterally. Reflexes physiologic. Rectal: Deferred. Impression: Acute exacerbation of chronic obstructive pulmonary disease; atrial fibrillation with ra pid ventricular response; hypertension, controlled; rheumatoid arthritis by history. Plan: The patient will be admitted and placed on IV steroids with a burst of Decadron followed by de creasing doses. Continue his pulmonary therapy and consultation with Cardiology in regard to his atr ial fibrillation with RVR. Nephrology will also be consulted as he has gradually increasing creatini ne with decreasing GFR and he has been on various combinations of diuretics, although back down over the past year. HR/MODL Voice ID: [id number]
[2021-03-09] MEDS: IPRATROPIUM BROM 0.5MG/2.5ML NEB SCH ×4 (01:25→19:30)
[2021-03-09] MEDS: LEVOTHYROXINE SOD 0.1 MG TAB PO SCH (05:53)
[2021-03-09] MEDS: INSULIN -REGULAR HUMAN 50 UNIT/0.5 ML ML SQ SCH ×4 (07:30→21:00)
--- NOTE | 2021-03-09 07:51 | EKG ---
Test Date: 2021-03-07 Test Time: 20:11:25 Gear Tooth Lapping Machine Operator: RR MEASUREMENT RESULTS: Intervals: Rate: 94 LA: 132 QRSD: 94 QT: 348 QTc: 435 [place]: P: 54 LA: 132 QRS: -53 T: 45 INTERPRETIVE STATEMENTS: Sinus rhythm with occasional premature ventricular complexes Left axis deviation Incomplete right bundle branch block Septal infarct, age undetermined Abnormal ECG Compared to ECG 03/07/2021 17:26:48 Ventricular premature complex(es) now present Left-axis deviation now present Myocardial infarct finding now present Atrial fibrillation no longer present Right-axis deviation no longer present ST (T wave) deviation no longer present Electronically Signed On 03-09-21 07:48:30 CDT by Nasir Bailey
[2021-03-09] MEDS: FOLIC ACID 1 MG TABLET PO SCH (08:21)
[2021-03-09] MEDS: CALCIUM CARBONATE CHEW 500MG TAB PO SCH (08:21)
[2021-03-09] MEDS: VITAMIN D 1000 UNIT TAB PO SCH (08:22)
[2021-03-09] MEDS: dexAMETHasone 4 MG TAB PO SCH ×2 (08:22→21:50)
[2021-03-09] MEDS: DILTIAZEM HCL 120 MG SR CAP PO SCH (08:22)
[2021-03-09] MEDS: PANTOPRAZOLE 40MG TABLET PO SCH ×2 (08:22→21:49)
[2021-03-09] MEDS: LACTOBACILLUS/ACIDOPHILUS TAB PO SCH (08:22)
[2021-03-09] MEDS: Fluticasone/Umeclidin/Vilanter [Trelegy Ellipta 100-62.5-25] Blst.W.Dev IH SCH (08:23)
[2021-03-09] MEDS: FUROSEMIDE 40 MG/4 ML VIAL IV SCH ×2 (08:23→16:37)
[2021-03-09] MEDS: SPIRONOLACTONE 25 MG TABLET PO SCH ×2 (08:23→21:50)
[2021-03-09] MEDS: ASPIRIN EC 81 MG TAB PO SCH (08:29)
--- NOTE | 2021-03-09 08:44 | P.PN ---
Subjective Date of Service: 03/09/21 Physical Examination - Vital Signs Temperature: 97.6 F Blood Pressure: 184/94 Pulse: 82 Respirations: 16 Pulse Ox (%): 94
--- NOTE | 2021-03-09 08:44 | P.PN ---
Subjective Date of Service: 03/09/21 Subjective: Other (Reports SOB is less today than yesterday.) Physical Examination - Vital Signs Temperature: 97.6 F Blood Pressure: 184/94 Pulse: 82 Respirations: 16 Pulse Ox (%): 94 - Physical Exam General: Other (Appears as his stated age) HEENT: Atraumatic, Normocephalic Neck: Supple Respiratory: Other (Symmetric chest expansion) Cardiovascular: No rubs, No murmurs Gastrointestinal: Soft and benign Assessment And Plan - Plan # SHARITA likely 2/2 CRS1/ relative hypotension from rapid afib Has baseline CKD IIIB to 4 with baseline GFR of 29-38, equivalent baseline serum creatinine 1.8-2.2 Accurate weight in standing daily Monitor renal panel and input and output Cont lasix + sofi, hold if SCr worsens further Lasix switched from IV to po starting tomorrow AM He needs to be on low Na diet fci d/t CHF but do NOT restrict free water intake as he does not have hyponatremia HR control per Cardiology # COPD Hx of lung CA s/p lobectomy Cont bronchodilators Mngt per other services & Pulmo # CHF Lasix + sofi as above Low-salt diet [place] po free water intake as above # Afib HR at goal Switched to cardizem Mngt per other services
[2021-03-09] MEDS ORDERED: DILTIAZEM HCL 120 MG SR CAP PO SCH (09:00)
[2021-03-09] MEDS ORDERED: IPRATROPIUM BROM 0.5MG/2.5ML IH PRN (09:59)
[2021-03-09] MEDS ORDERED: ARFORMOTEROL TARTRATE 15 MCG/2 ML VIAL.NEB NEB SCH (09:59)
--- NOTE | 2021-03-09 10:00 | P.CNS ---
Date of Consult: 03/09/21 Reason for Consult: COPD AFib Chief Complaint: Shortness of breath History of Present Illness: Patient is 65 years of age we terminal COPD recurrent hospital admissions admitted with acute worsening of shortness of breath rapid AFib as been admitted on off for GI bleeding is been off anticoagulants this time may beta-blockers was stop and was switched to Cardizem no history of GI bleed he is feeling a little better as baseline shortness of breath Allergies prednisone Adverse Reaction (Severe, Verified 02/23/21 13:53) Shortness of breath Home Medications: Cholecalciferol (Vitamin D3) [Vitamin D3] 2,000 unit PO DAILY 07/07/20 Cyclobenzaprine [Flexeril*] 5 mg PO BEDTIME PRN 07/07/20 Folic Acid 3 mg PO DAILY 07/07/20 Gabapentin [Neurontin*] 300 mg PO BIDP PRN 07/07/20 allopurinoL [Zyloprim*] 100 mg PO BEDTIME 07/07/20 Simvastatin 20 mg PO BEDTIME 07/25/20 Calcium Carbonate [Tums Regular*] 1,000 mg PO DAILY #30 tab 07/28/20 L.acidoph,Paracasei, B.lactis [Probiotic] 1 each PO DAILY 08/03/20 dexAMETHasone [Dexamethasone] 2 mg PO BID 10/22/20 Levothyroxine [Synthroid*] 0.1 mg PO [id number] #30 tab 11/06/20 Metoprolol Succinate [Toprol Xl*] 100 mg PO BID 6AM 6PM #60 tab 11/06/20 Ipratropium Neb [Atrovent*] 0.5 mg NEB BID 12/28/20 Acetaminophen [Tylenol Extra Strength] 2 tab PO BIDP PRN 02/02/21 Fluticasone/Umeclidin/Vilanter [Trelegy Ellipta 100-62.5-25] 1 puff IH DAILY 02/02/21 LORazepam [Ativan*] 0.5 mg PO Q12HP PRN 02/02/21 Pantoprazole [Protonix Tab*] 40 mg PO BID 30 Days #60 tab 02/07/21 Furosemide [Lasix] 40 mg PO BIDL 02/14/21 Spironolactone [Aldactone*] 25 mg PO BID tab 02/18/21 - Past Medical/Surgical History Diabetic: No -: Hypertension -: COPD -: Atrial fibrillation on chronic anticoagulation therapy -: Lung cancer(does not know which type) -: Gout -: Chronic diastolic congestive heart failure -: Chronic kidney disease stage 4 -: Iron deficiency anemia -: Hypothyroidism -: left upper lung lobectomy with lymph node resection -: appendectomy -: tonsillectomy Psychosocial/ Personal History: . Currently lives at home with his - Family History Father Medical History: Heart disease, Hypertension Notes: at 75 yo Mother Medical History: Cancer Notes: no medical history, still living Brother Medical History: Hypertension, Cancer Notes: melanoma Sister Medical History: Other (see notes) Notes: fibromyalgia - Social History Smoking Status: Current some day smoker Alcohol use: No CD- Drugs: No Caffeine use: No Review of Systems 10-point ROS is otherwise unremarkable General: Weakness Respiratory: Shortness of Breath Physical Examination Temp Pulse Resp BP Pulse Ox 97.6 F 82 16 184/94 H 94 03/09/21 08:44 03/09/21 08:44 03/09/21 08:44 03/09/21 08:44 03/09/21 08:44 General: Alert, Oriented x3, Mild distress Respiratory: Expiratory wheezes Cardiovascular: Normal S1 S2, Edema, Irregular heart rate/rhythm Gastrointestinal: Normal bowel sounds, Soft and benign - Problems (1) COPD exacerbation Onset Date: 04/27/18 Current Visit: No Status: Acute Plan: Patient is 65 years of age with terminal COPD admitted with worsening dyspnea secondary to uncontrolled AFib anticoagulation is contraindicated due to significant bleed and peptic ulcer disease patient started on Cardizem continue with Decadron 2 mg twice a day his renal function is a little worse seen by Nephrology and spironolactone and Lasix chest x-ray shows COPD changes continue with home bronchodilators possible discharge tomorrow blood pressure is little elevated
[2021-03-09] MEDS: ACETAMINOPHEN 500 MG TAB PO PRN (15:49)
--- NOTE | 2021-03-09 20:32 | PN ---
Date of Progress Note: 03/09/2021 The patient is basically status quo since switching to his Cardizem. He has been relatively stable w ith no episodes of ventricular tachycardia. His breathing seems controlled on the Decadron 4 mg for 24 hours, seen by Pulmonary and Nephrology. He probably could be discharged in the a.m. to continue on the Lasix 40 p.o. b.i.d., Aldactone 25 b.i.d., and maintenance dose of Decadron 2 mg b.i.d. We wi ll repeat his blood work in the morning and if remained stable, discharge. Follow up with me in 1 we ek, Nephrology in 1 week, and pulmonology in 2 weeks. HR/MODL Voice ID: [id number] Report ID: [id number]
[2021-03-09] MEDS: GABAPENTIN 300 MG CAP PO SCH (21:49)
[2021-03-09] MEDS: allopurinoL 100 MG TAB PO SCH (21:49)
[2021-03-09] MEDS: ATORVASTATIN 10 MG TAB PO SCH (21:49)
[2021-03-10] MEDS: IPRATROPIUM BROM 0.5MG/2.5ML NEB SCH ×3 (01:25→13:25)
[2021-03-10] MEDS: LEVOTHYROXINE SOD 0.1 MG TAB PO SCH (06:20)
[2021-03-10 06:33] LABS: Absolute Lymphocytes (CBC) 0.1 K/uL (0.7-4.9); Basophils % 0.1 % (0-1.3); Hematocrit 29.7 % (39.6-49.0); Lymphocytes % 1.9 % (15.3-44.8); MPV 8.8 fL (7.6-11.3); RBC Red Blood Cell Count 3.35 M/uL (4.33-5.43)
[2021-03-10 06:42] LABS: Potassium 3.9 mmol/L (3.5-5.1)
[2021-03-10 06:44] LABS: Albumin 2.3 g/dL (3.4-5.0); Magnesium 2.2 mg/dL (1.8-2.4); Phosphorus 3.4 mg/dL (2.5-4.9)
[2021-03-10] MEDS: INSULIN -REGULAR HUMAN 50 UNIT/0.5 ML ML SQ SCH ×2 (07:30→11:30)
[2021-03-10] MEDS: ASPIRIN EC 81 MG TAB PO SCH ×2 (09:00→09:03)
[2021-03-10] MEDS ORDERED: FUROSEMIDE 20 MG TABLET PO SCH (09:00)
[2021-03-10] MEDS: Fluticasone/Umeclidin/Vilanter [Trelegy Ellipta 100-62.5-25] Blst.W.Dev IH SCH (09:00)
[2021-03-10] MEDS: CALCIUM CARBONATE CHEW 500MG TAB PO SCH (09:03)
[2021-03-10] MEDS: GABAPENTIN 300 MG CAP PO SCH (09:03)
[2021-03-10] MEDS: dexAMETHasone 4 MG TAB PO SCH (09:04)
[2021-03-10] MEDS: PANTOPRAZOLE 40MG TABLET PO SCH (09:04)
[2021-03-10] MEDS: SPIRONOLACTONE 25 MG TABLET PO SCH (09:05)
[2021-03-10] MEDS: DILTIAZEM HCL 120 MG SR CAP PO SCH (09:05)
[2021-03-10] MEDS: FOLIC ACID 1 MG TABLET PO SCH (09:06)
[2021-03-10] MEDS: LACTOBACILLUS/ACIDOPHILUS TAB PO SCH (09:06)
[2021-03-10] MEDS: VITAMIN D 1000 UNIT TAB PO SCH (09:06)
--- NOTE | 2021-03-10 10:31 | P.PN ---
Subjective Date of Service: 03/10/21 Chief Complaint: Shortness of breath Subjective A 64 Y/o man with PMHx of CKD IIIb/IV baseline Cr 2.2-2.4 , COPD, CHF on lasix and aldacotne , HTN , Afib and HX of remote Lung Ca Pt presented with SOB and Afib with RVR Today still have productive cough and [place] wheezes , but stated his SOB improved Cr slowly improving Cont laisx and aldactone Physical exam general: AAOX3, NAD , Neck; Supple, No elevated JVD hear: RRR, normal S1,2 no murmur or rub Chest: decreased air entry , wheezes Abdomen: Soft , Nt Extremities no edema A/P SHARITA on CKD CKD IIIb/IV Due to cardiorenal syndrome , +/ATN from Afib induced hypotension Cr baseline 2.2-2.4 , Cont lasix and aldactone renal dose meds anemia of chronic disease HX og GI bleedng H/H stable now COPD cont inhalers and steroids pulmonary on board HX of CHF cont lasix and aldactone Total time spent 45min Physical Examination - Vital Signs Temperature: 96.4 F Blood Pressure: 162/91 Pulse: 77 Respirations: 19 Pulse Ox (%): 100
--- NOTE | 2021-03-10 12:29 | P.DS ---
Discharge Date: 03/10/21 Disposition: ROUTINE DISCHARGE Discharge Condition: GOOD Reason for Admission: Shortness of breath Brief History of Present Illness: Patient is a 65yo w/ COPD, atrial fibrillation who presents to the hospital with shortness of breath. Patient was admitted for further treatment. Patient on beta-hannah but anti coagulation is because of GI bleeding. Patient was admitted for further evaluation. Hospital Course: Patient was treated with Cardizem and will be discharged on oral Cardizem. Patient will follow with Cardiology, Pulmonary, and Nephrology. At this time, patient is stable for discharge home. Vital Signs/Physical Exam: Temp Pulse Resp BP Pulse Ox 96.4 F L 77 19 162/91 H 100 03/10/21 10:30 03/10/21 10:30 03/10/21 10:30 03/10/21 10:30 03/10/21 10:30 General: Alert, In no apparent distress, Oriented x3 Laboratory Data at Discharge: WBC 5.90 K/uL (4.3-10.9) 03/10/21 05:33 Hgb 9.8 g/dL (13.6-17.9) L 03/10/21 05:33 Hct 29.7 % (39.6-49.0) L 03/10/21 05:33 Plt Count 168 K/uL (152-406) 03/10/21 05:33 PT 11.9 SECONDS (9.5-12.5) 03/07/21 17:50 INR 1.03 03/07/21 17:50 Sodium 138 mmol/L (136-145) 03/10/21 05:33 Potassium 3.9 mmol/L (3.5-5.1) 03/10/21 05:33 BUN 85 mg/dL (7-18) H 03/10/21 05:33 Creatinine 2.64 mg/dL (0.55-1.3) H 03/10/21 05:33 Glucose 102 mg/dL (74-106) 03/10/21 05:33 Phosphorus 3.4 mg/dL (2.5-4.9) 03/10/21 05:33 Magnesium 2.2 mg/dL (1.8-2.4) D 03/10/21 05:33 Total Bilirubin 0.3 mg/dL (0.2-1.0) 03/07/21 17:50 AST 25 U/L (15-37) 03/07/21 17:50 ALT 18 U/L (12-78) 03/07/21 17:50 Alkaline Phosphatase 71 U/L (45-117) 03/07/21 17:50 Troponin I 0.07 ng/mL (0.0-0.045) H 03/08/21 03:00 Home Medications: Cholecalciferol (Vitamin D3) [Vitamin D3] 2,000 unit PO DAILY 07/07/20 Cyclobenzaprine [Flexeril*] 5 mg PO BEDTIME PRN 07/07/20 Folic Acid 3 mg PO DAILY 07/07/20 Gabapentin [Neurontin*] 300 mg PO BIDP PRN 07/07/20 allopurinoL [Zyloprim*] 100 mg PO BEDTIME 07/07/20 Simvastatin 20 mg PO BEDTIME 07/25/20 Calcium Carbonate [Tums Regular*] 1,000 mg PO DAILY #30 tab 07/28/20 L.acidoph,Paracasei, B.lactis [Probiotic] 1 each PO DAILY 08/03/20 dexAMETHasone [Dexamethasone] 2 mg PO BID 10/22/20 Levothyroxine [Synthroid*] 0.1 mg PO HQGEA1EM #30 tab 11/06/20 Ipratropium Neb [Atrovent*] 0.5 mg NEB BID 12/28/20 Acetaminophen [Tylenol Extra Strength] 2 tab PO BIDP PRN 02/02/21 Fluticasone/Umeclidin/Vilanter [Trelegy Ellipta 100-62.5-25] 1 puff IH DAILY 02/02/21 LORazepam [Ativan*] 0.5 mg PO Q12HP PRN 02/02/21 Pantoprazole [Protonix Tab*] 40 mg PO BID 30 Days #60 tab 02/07/21 Furosemide [Lasix] 40 mg PO BIDL 02/14/21 Spironolactone [Aldactone*] 25 mg PO BID tab 02/18/21 Diltiazem Cd [Cardizem Cd*] 240 mg PO DAILY #30 cap 03/10/21 New Medications: Diltiazem Cd [Cardizem Cd*] 240 mg PO DAILY #30 cap Physician Discharge Instructions: OK TO DC IV AND DC HOME FOLLOW-UP WITH PRIMARY CARE PROVIDER IN 1-2 WEEKS FOLLOW-UP WITH Nephrology, Pulmonary, and CARDIOLOGY IN 1-2 WEEKS RETURN TO THE ER IF symptoms worsen CALL or TEXT DR. FERRARI AT [phone] IF ANY QUESTIONS REGARDING HOSPITAL STAY. PLEASE CALL THE FLOOR AT [phone] IF ANY MEDICATION OR NURSING QUESTIONS. Diet: AHA Activity: Fall precautions Followup: Danial Wilkins MD [Primary Care Provider] - Time spent managing pt's care (in minutes): 35
[2021-03-10 12:35] VITALS: BP 153/74; TEMP 97.4
[2021-03-10 13:51] VITALS: O2SAT 95
== END 2021-03-10 16:36 | disposition home or self-care (01) | DRG 308 ==
LOC: ER 16:33 → ERHOLD 20:21 → 4TH 21:31
PROVIDERS: ADMIT Family Medicine; ATTEND Family Medicine
DX: I48.0 Paroxysmal atrial fibrillation (principal); N17.0 Acute kidney failure with tubular necrosis; J44.1 Chronic obstructive pulmonary disease with (acute) exacerbation; N18.4 Chronic kidney disease, stage 4 (severe); I13.0 Hypertensive heart and chronic kidney disease with heart failure and stage 1 through stage 4 chronic kidney disease, or unspecified chronic kidney disease; I50.32 Chronic diastolic (congestive) heart failure; I95.9 Hypotension, unspecified; F17.210 Nicotine dependence, cigarettes, uncomplicated; D63.8 Anemia in other chronic diseases classified elsewhere; M10.9 Gout, unspecified; K27.9 Peptic ulcer, site unspecified, unspecified as acute or chronic, without hemorrhage or perforation; E03.9 Hypothyroidism, unspecified; E87.5 Hyperkalemia; I25.10 Atherosclerotic heart disease of native coronary artery without angina pectoris; M06.9 Rheumatoid arthritis, unspecified; R77.8 Other specified abnormalities of plasma proteins; Z88.8 Allergy status to other drugs, medicaments and biological substances; Z90.49 Acquired absence of other specified parts of digestive tract; Z85.118 Personal history of other malignant neoplasm of bronchus and lung; Z79.890 Hormone replacement therapy; Z99.81 Dependence on supplemental oxygen; Z20.822 Contact with and (suspected) exposure to COVID-19
CPT/HCPCS: 36415; 71045; 80048; 80076; 82040; 82947; 83735; 83880; 84100; 84484; 85025; 85610; 93005; 94640; 94760; 96374; 96375; 99285; J1100; J1160; J1940; J8540; U0003

== ENCOUNTER 2021-03-20 18:28 | Inpatient (IN) | payer BC, OTHER ==
--- OUTSIDE RECORDS SUMMARY | 2021-03-20 18:31 | XMS REPORT | Continuity of Care Document ---
:1955 Author Organization [facility] t Address [address] [place] [address] Care Team Providers Name Role Phone Claudette NOBLES Primary Care Physician HEMATPOUR Attending Clinician Unavailable Payers Payer Name Policy Type Policy Effective Date Expiration Date Sour ce Number BCBSTX PPO [id number] 2020 00:00:00 BCBSANTHMINDA BLUE [id number] 2017 [place] [id number] 00:00:00 Met alex 2017-[facility] MEDICAREMEDICARE PART [id number] 2018 Javier Douglass AND 00:00:00 [place] [id number] 2017 [place] Condition Condition Condition Status Onset Resolution Last Treating Co mments Source Name Details Category Date Date Treatment Clinician Date Pneumothor Pneumothor Disease Active 2017-11 yogesh ax ax 2-25 Methodi 00:00: st 00 Malignant Malignant Disease Active Melany ston neoplasm neoplasm 07-15 Method i of upper of upper 00:00: st lobe lobe 00 bronchus bronchus Hypertensi Hypertensi Disease Active Nigel zuñiga on on 02-03 Methodi 00:00: st 00 COPD COPD Disease Active [place] (chronic (chronic 02-03 Method i obstructiv obstructiv 00:00: st e e 00 pulmonary pulmonary disease) disease) Rheumatoid Rheumatoid Disease Active yogesh arthritis arthritis 02-03 Meth ruben 00:00: st 00 Smoking Smoking Disease Active 2016- [place] 403 Methodi 00:00: st 00 Allergies, Adverse Reactions, Alerts This patient has no known allergies or adverse reactions. Family History Family Member Diagnosis Comments Start Date Stop Date Source Natural father Emphysema Marco A Robertson thodist Natural father Heart failure Marco A Kimball Natural father Lung cancer Marco A [place] ethodist Natural father Skin cancer Marco A [place] ethodist Natural father COPD Marco A [facility] thodist Natural mother No Known Problems Melany stodonis Mormon Natural sister No Known Problems Melany stodonis Mormon Natural brother Skin cancer Marco A Kimball Social History Social Habit Start Date Stop Date Quantity Comments Source Cigarettes smoked 2017-09-04 2017-09-04 Marco A Kimball current (pack per 00:00:00 00:00:00 day) - Reported Cigarette 2017-09-04 2017-09-04 Marco A Elia ist pack-years 00:00:00 00:00:00 Tobacco use and 2017-09-04 2017-09-04 Never used Marco A [place] ethodist exposure 00:00:00 00:00:00 Alcohol intake 2017-09-04 2017-09-04 Current drinker [place] 00:00:00 00:00:00 of alcohol (finding) History of tobacco 2017-01-01 Current smoker Javier spangler Mormon use 00:00:00 [birth year] Marco A alex 00:00:00 00:00:00 Smoking Status Start Date Stop Date Source Former smoker 2017-09-04 00:00:00 2017-09-04 00:00:00 Marco A Kimball Medications Ordered Filled Start Stop Current Ordering Indication Dosage Frequency Signature Comments Components Source Medication Medication Date Date Medication? Clinician (SIG) Name Name aspirin 2017-11 Yes 81mg QD Take 81 mg [place] (ECOTRIN) 2-30 by mouth Method i 81 MG 13:27: daily. st enteric 52 coated tablet multivitami 2017-11 Yes 1{tbl} QD Take 1 [place] with 2-30 tablet by Methodi minerals 13:27: mouth st tablet 52 daily. cyclobenzap 2017-11 Yes 5mg Q.[id number] Take 5 mg [place] rine 2-30 [id number] by mouth 3 Met fcoi (FLEXERIL) 13:27: 3D (three) st 5 mg tablet 52 times a day as needed for muscle spasms. simvastatin 2017-11 Yes 20mg QD Take 20 mg [place] (ZOCOR) 20 2-30 by mouth Metho di MG tablet 13:27: nightly. st 52 folic acid 2017-11 Yes 1mg QD Take 1 mg [place] (FOLVITE) 1 2-30 by mouth Meth ruben MG tablet 13:27: daily. 3 st 52 DAILY albuterol 2017-11 Yes 2{puff} Q6H Inhale 2 [place] (PROAIR 2-30 puffs Methodi HFA,PROVENT 13:27: every 6 st [place] 52 (six) HFA,VENTOLI hours as N HFA) 90 needed for mcg/actuati wheezing. on inhaler rivaroxaban 2017-11 Yes 15mg Take 15 mg [place] (XARELTO) 2-30 by mouth. Metho di 15 mg 13:27: st tablet 52 theophyllin 2017-11 Yes 200mg QD Take 200 [place] e (LACIE-24) 2-30 mg by Methodi 100 MG 24 13:27: mouth st hr capsule 52 daily. furosemide 2017-11 Yes 80mg Q.5D Take 80 mg [place] (LASIX) 80 2-30 by mouth 2 Met hodi mg tablet 13:27: (two) st 52 times a day. spironolact 2017-11 Yes 12.5mg QD Take 12.5 [place] one 2-30 mg by Methodi (ALDACTONE) 13:27: mouth st 25 MG 52 daily. tablet predniSONE 2017-11 Yes 10mg QD Take 10 mg [place] (DELTASONE) 2-30 by mouth Meth ruben 10 mg 13:27: daily. st tablet 52 amIODarone 2017-11 Yes 200mg QD Take 200 [place] (PACERONE) 2-30 mg by Methodi 200 MG 13:27: mouth st tablet 52 daily. ferrous 2017-11 Yes 325mg QD Take 325 [place] sulfate 325 2-30 mg by Methodi (65 FE) MG 13:27: mouth st tablet 52 daily with breakfast. magnesium 2017-11 Yes 250mg QD Take 250 Melany ston oxide 250 2-30 mg by Methodi mg tablet 13:27: mouth st 52 daily. gabapentin 2017-11 Yes 300mg Q.[id number] Take 300 [place] (NEURONTIN) 2-30 [id number] mg by M ethodi 300 mg 13:27: 3D mouth 3 st capsule 52 (three) times a day. metoprolol 2016-11 Yes 50mg Q.5D 50 mg 2 [place] succinate 0-26 (two) Methodi XL 00:00: times a st (TOPROL-XL) 00 day. 100 mg 24 hr tablet omeprazole 2016-11 Yes 20mg 20 mg. Brenda on (PriLOSEC) 0-20 Methodi 20 MG 00:00: st capsule 00 amLODIPine Yes TK 1 T PO Ho aní[place] (NORVASC) 4-21 QD Methodi 10 mg 00:00: st tablet 00 Procedures This patient has no known procedures. Plan of Care Planned Activity Planned Date Details Comments Source Future Scheduled 2021-06-03 INFLUENZA VACCINE Neena dykes [facility] Test 00:00:00 [code = INFLUENZA VACCINE] Future Scheduled 2003 COLONOSCOPY SCREENING [place] [facility] Test 00:00:00 [code = COLONOSCOPY SCREENING] Future Scheduled 2003 SHINGLES VACCINES (#1) H ouenrique [facility] Test 00:00:00 [code = SHINGLES VACCINES (#1)] Future Scheduled 1971 Hepatitis C screening [place] [facility] Test 00:00:00 (procedure) [code = 158752326] Future Scheduled 1969 COVID-19 VACCINE (1) Melanyodin nunez [facility] Test 00:00:00 [code = COVID-19 VACCINE (1)] Future Scheduled 1959 65+ PNEUMOCOCCAL [place] [facility] Test 00:00:00 VACCINE (1 of 2 - PPSV23) [code = 65+ PNEUMOCOCCAL VACCINE (1 of 2 - PPSV23)] Encounters Start End Encounter Admission Attending Care Care Encounter Source Date/Time Date/Time Type Type Clinicians Facility Department ID 2021-03-10 Outpatient HEMATPOUR, [facility] [id number] UT 02:45:40 ANIA bran Results This patient has no known results.
[2021-03-20] MEDS ORDERED: NITROGLYCERIN 1 GM PKT TD ONE (20:34)
[2021-03-20] MEDS ORDERED: PIPER/TAZO/NS 3.375gm 3.375 GM/100 ML BAG ONE (20:35)
[2021-03-20] MEDS ORDERED: dexAMETHasone 10 MG/ML VIAL ONE (20:35)
[2021-03-20] MEDS ORDERED: PANTOPRAZOLE 40 MG INJ ONE (20:35)
[2021-03-20] MEDS ORDERED: FUROSEMIDE 40 MG/4 ML VIAL ONE (20:35)
[2021-03-20 20:49] LABS: Absolute Lymphocytes (CBC) 0.2 K/uL (0.7-4.9)
[2021-03-20 20:52] LABS: Basophils % 0.3 % (0-1.3); Hematocrit 32.8 % (39.6-49.0); Lymphocytes % 0.8 % (15.3-44.8); MPV 9.2 fL (7.6-11.3); Protime INR 1.06; RBC Red Blood Cell Count 3.73 M/uL (4.33-5.43)
--- NOTE | 2021-03-20 20:59 | RAD REPORT ---
EXAM DESCRIPTION: Dorothy Single View03/20/2021 8:43 pm CLINICAL HISTORY: Cough COMPARISON: March 07, 2021 FINDINGS: Left lung volume loss is unchanged Interstitial pattern appears prominent within the right lung. Heart is normal size IMPRESSION: Interstitial pattern appears prominent within the right lung. This all may be chronic or indicate an acute process such as atypical pneumonia or pneumonitis
[2021-03-20 21:16] LABS: Blood Morphology Comment NOT SEEN (NOT SEEN); Platelet Estimate ADEQ
[2021-03-20] MEDS ORDERED: LEVALBUTEROL 0.63 MG/3 ML NEB ONE ×2 (21:20)
[2021-03-20 21:29] LABS: SARS-COV-2 RT PCR NEGATIVE (NEGATIVE)
[2021-03-20 22:08] LABS: Albumin 2.7 g/dL (3.4-5.0); Bilirubin Direct 0.2 mg/dL (0-0.2); Bilirubin Total 0.5 mg/dL (0.2-1.0); Magnesium 3.2 mg/dL (1.8-2.4); Protein, Total 7.5 g/dL (6.4-8.2); Troponin (Emerg Dept Use Only) 0.08 ng/mL (0.0-0.045)
[2021-03-20 22:10] LABS: Potassium 6.5 mmol/L (3.5-5.1)
--- NOTE | 2021-03-20 22:29 | ER ---
Nurse's Notes [facility] Name: Angelo Narvaez Age: 65 yrs Sex: Male : 1955 Arrival Date: 03/20/2021 Time: 18:34 Bed 26 Private MD: Diagnosis: Acute kidney failure-on chronic;Dyspnea, unspecified;Essential (primary) hypertension;Elevated white blood cell count;Sepsis, unspecified organism;Hyperkalemia;Unspecified combined systolic (congestive) and diastolic (congestive) heart failure;Bandemia Presentation: 03/20 18:34 Chief complaint: EMS states: Increased SOB x 5 days, discharged from upstairs 10 days jl7 ago, wears home O2 at 2 lpm NC, EMS changed to 4 lpm and pt reported improvment. 18:34 Method Of Arrival: EMS: [facility] jl7 19:35 Coronavirus screen: Client denies travel out of the [place] in the last 14 days. Ebola vg1 Screen: Patient negative for fever greater than or equal to 101.5 degrees Fahrenheit, and additional compatible Ebola Virus Disease symptoms. Initial Sepsis Screen: Does the patient meet any 2 criteria? RR > 20 per min. HR > 90 bpm. Yes Does the patient have a suspected source of infection? Yes: Productive cough/pneumonia No. Patient's initial sepsis screen is negative. Risk Assessment: Do you want to hurt yourself or someone else? Patient reports no desire to harm self or others. Onset of symptoms was March 15, 2021. 19:35 Acuity: STEPHIE 2 vg1 Historical: - Allergies: 19:39 Prednisone; vg1 - PMHx: 19:39 Atrial Fib; C-diff; COPD; Gout; HTN; kidney disease; Lung Cancer; Pneumothorax; vg1 Rheumatoid Arthritis; - Immunization history:: Adult Immunizations up to date, Client reports receiving the 2nd dose of the Covid vaccine. - Social history:: Smoking status: Patient denies any tobacco usage or history of. - Family history:: not pertinent. Screenin:28 Abuse screen: Denies threats or abuse. Denies injuries from another. Nutritional ad5 screening: No deficits noted. Tuberculosis screening: No symptoms or risk factors identified. Fall Risk Fall in past 12 months (25 points). Secondary diagnosis (15 points) IV access (20 points). Ambulatory Aid- None/Bed Rest/Nurse Assist (0 pts). Gait- Weak (10 pts.). Mental Status- Oriented to own ability (0 pts). Total Haskins Fall Scale indicates High Risk Score (45 or more points). Fall prevention measures have been instituted. Side Rails Up X 2 Placed Close to Nursing Station Frequent Obs/Assessments Occuring Family Present and informed to notify staff if the need to leave the bedside. Assessment: 19:50 General: Appears distressed, uncomfortable, malnourished, Behavior is cooperative, ad5 appropriate for age. Pain: Denies pain. Neuro: No deficits noted. Level of Consciousness is awake, alert, obeys commands, Oriented to person, place, time, situation, Appropriate for age Bus Steward are weak bilaterally Moves all extremities. Gait is unsteady, Speech is normal, Facial symmetry appears normal, Pupils are PERRLA. Cardiovascular: Reports fatigue, shortness of breath, Heart tones present Patient's skin is warm and dry. Pulses are all present. Respiratory: Reports shortness of breath cough that is labored breathing Airway is patent Trachea midline Respiratory effort is labored, pursed lip, with retractions, Respiratory pattern is regular, tachypnea. Respiratory: Breath sounds are coarse bilaterally. Breath sounds with crackles bilaterally. GI: No deficits noted. : No deficits noted. Derm: No deficits noted. Musculoskeletal: No deficits noted. 21:54 Reassessment: Pt resting comfortably in stretcher with S.O. at bedside. RT reports ad5 decreased FiO2 on bipap to 30%, pt tolerating well. NAD noted, will continue to monitor. Patient states feeling better. Patient states symptoms have improved. 23:45 Reassessment: Patient appears in no apparent distress at this time. Patient and/or wh family updated on plan of care and expected duration. Pain level reassessed. Patient is alert, oriented x 3, equal unlabored respirations, skin warm/dry/pink. Vital Signs: 19:35 BP 184 / 174; Pulse 96; Resp 24; Temp 97.9(O); Pulse Ox 90% on 4 lpm NC; Weight 56.7 vg1 kg; Height 5 ft. 4 in. (162.56 cm); 20:15 BP 197 / 96; Pulse 90; Resp 18; Pulse Ox 100% on 35% BiPAP; ad5 21:00 BP 174 / 86; Pulse 90; Resp 24; Pulse Ox 97% on 35% BiPAP; ad5 21:30 BP 164 / 87; Pulse 90; Resp 21 S; Pulse Ox 98% on 30% BiPAP; ad5 03/21 00:00 BP 174 / 98; Pulse 94; Resp 20; Pulse Ox 96% on BiPAP; wh 03/23 22:44 BP 162 / 85; Pulse 90; Resp 25; Pulse Ox 91% on 3 lpm NC; rr5 03/20 19:35 Body Mass Index 21.46 (56.70 kg, 162.56 cm) vg1 ED Course: 03/20 18:34 Patient arrived in ED. as 19:38 Yosi Goss is Primary Nurse. ad5 19:39 Triage completed. vg1 19:50 Patient has correct armband on for positive identification. Placed in gown. Bed in low ad5 position. Call light in reach. Side rails up X2. release engineer on. Pulse ox on. NIBP on. 19:51 Osei Narvaez MD is Attending Physician. joseline 20:00 Initial lab(s) drawn, by tn, sent to lab. First set of blood cultures drawn by tn. ad5 20:10 No provider procedures requiring assistance completed. Inserted saline lock: 20 gauge ad5 in right upper arm, using aseptic technique. 20:11 Inserted saline lock: 18 gauge in left EJ, using aseptic technique. ,using aseptic ad5 technique. EJ to L neck by , 2nd blood culture obtained and sent to lab Blood collected. 20:49 COVID-19 : Document "Date of Symptom Onset" if Symptomatic. Sent. ad5 22:24 Brenda Son MD is Hospitalizing Provider. [facility] 22:29 Faria cath inserted, using sterile technique, 18 Fr., by tn, balloon inflated, to ad5 gravity drainage. 23:59 Patient admitted, IV remains in place. 03/21 00:00 Arm band placed on right wrist. Administered Medications: 03/20 20:12 Drug: Lasix (furosemide) 40 mg Route: IVP; Site: right upper arm; ad5 22:30 Follow up: Response: No adverse reaction ad5 20:13 Drug: ProTONIX (pantoprazole) 40 mg Route: IVP; Site: right upper arm; ad5 22:32 Follow up: Response: No adverse reaction ad5 20:15 Drug: Zosyn (piperacillin-tazobactam) 3.375 grams Route: IVPB; Infused Over: 60 mins; ad5 Site: right upper arm; 22:31 Follow up: Response: No adverse reaction ad5 20:16 Drug: Decadron - Dexamethasone 10 mg Route: IVP; Site: left jugular; ad5 22:32 Follow up: Response: No adverse reaction ad5 20:20 Drug: Nitro-Bid (nitroglycerin) Ointment 2 % 1 inches Route: Transdermal; Site: ad5 anterior chest wall; 22:30 Follow up: Response: No adverse reaction ad5 21:40 Drug: AtroVENT (ipratropium) Aerosol 0.5 mg {Note: Administered by RT.} Route: jb4 Inhalation; 22:30 Follow up: Response: No adverse reaction ad5 21:41 Drug: Xopenex (levalbuterol) 3.75 mg {Note: Administered by RT.} Route: Inhalation; 4 22:31 Follow up: Response: No adverse reaction ad5 23:51 Drug: NS 0.9% 300 ml Route: IV; Rate: bolus; Site: left jugular; 03/21 00:47 Follow up: Response: No adverse reaction; IV Status: Completed infusion 03/20 23:53 Drug: Lasix (furosemide) 20 mg {Note: 174/98.} Route: IVP; Site: left jugular; 03/21 00:48 Follow up: Response: No adverse reaction 03/20 23:55 Drug: D50W 50 ml Route: IVP; Site: left jugular; 03/21 00:48 Follow up: Response: No adverse reaction 03/20 23:56 Drug: Kayexalate (polystyrene) 45 grams Route: PO; 03/21 00:48 Follow up: Response: No adverse reaction 03/20 23:57 Drug: Insulin Regular Human 10 units {Co-Signature: jb4 (Saurabh Lee RN).} Route: IVP; Site: left jugular; 03/21 00:48 Follow up: Response: No adverse reaction 00:47 Drug: Calcium Gluconate 1 grams Route: IVPB; Infused Over: 15 mins; Site: left jugular; 00:47 Drug: Lasix (furosemide) 80 mg {Note: 142/83 .} Route: IVP; Site: left jugular; Outcome: 03/20 22:29 Decision to Hospitalize by Provider. joseline 23:59 Admitted to ER Hold. Please see [facility] for further documentation. 23:59 Condition: stable 23:59 Instructed on the need for admit, Report received from Yosi ZARAGOZA 03/23 22:44 Patient left the ED. rr5 Signatures: Osei Narvaez MD MD cha Martinez, Amelia as Bryson, James, NIK RN jb4 Angelina Pacheco RN RN jl7 Mat Solitario RN RN Timothy Flores RN RN rr5 Virginia Javed RN RN vg1 Yosi Goss RN jb4
--- NOTE | 2021-03-20 22:29 | EDPHYS ---
Physician Documentation [facility] Name: Angelo Narvaez Age: 65 yrs Sex: Male : 1955 Arrival Date: 03/20/2021 Time: 18:34 Bed 26 Private MD: AJIT Physician Brice Osei HPI: 03/20 20:12 This 65 yrs old Male presents to ER via EMS with complaints of General joseline Weakness. 20:12 The patient has shortness of breath at rest, with light activity. Onset: The joseline symptoms/episode began/occurred 3 day(s) ago. Duration: The symptoms are continuous, and are steadily getting worse. The patient's shortness of breath is aggravated by coughing. The patient or guardian reports cough, described as moderate, difficulty breathing, flu symptoms, arthralgias, low-grade fever. Modifying factors: The symptoms are alleviated by elevating head, remaining still, the symptoms are aggravated by activity, lying flat. Associated signs and symptoms: The patient has no apparent associated signs or symptoms. Severity of symptoms: At their worst the symptoms were moderate in the emergency department the symptoms are unchanged. Historical: - Allergies: 19:39 Prednisone; vg1 - PMHx: 19:39 Atrial Fib; C-diff; COPD; Gout; HTN; kidney disease; Lung Cancer; Pneumothorax; vg1 Rheumatoid Arthritis; - Immunization history:: Adult Immunizations up to date, Client reports receiving the 2nd dose of the Covid vaccine. - Social history:: Smoking status: Patient denies any tobacco usage or history of. - Family history:: not pertinent. ROS: 20:12 Eyes: Negative for injury, pain, redness, and discharge, ENT: Negative for injury, joseline pain, and discharge, Neck: Negative for injury, pain, and swelling, Back: Negative for injury and pain, : Negative for injury, bleeding, discharge, and swelling, MS/Extremity: Negative for injury and deformity, Skin: Negative for injury, rash, and discoloration, Neuro: Negative for headache, weakness, numbness, tingling, and seizure. 20:12 Constitutional: Positive for chills, fever, malaise. 20:12 Cardiovascular: Positive for edema. 20:12 Respiratory: Positive for cough, dyspnea on exertion, orthopnea, shortness of breath, wheezing, expiratory. 20:12 MS/extremity: Positive for swelling, of the right leg and left leg. Exam: 20:12 Constitutional: This is a well developed, well nourished patient who is awake, alert, joseline and in no acute distress. Head/Face: Normocephalic, atraumatic. Eyes: Pupils equal round and reactive to light, extra-ocular motions intact. Lids and lashes normal. Conjunctiva and sclera are non-icteric and not injected. Cornea within normal limits. Periorbital areas with no swelling, redness, or edema. ENT: Nares patent. No nasal discharge, no septal abnormalities noted. Tympanic membranes are normal and external auditory canals are clear. Oropharynx with no redness, swelling, or masses, exudates, or evidence of obstruction, uvula midline. Mucous membranes moist. Neck: Trachea midline, no thyromegaly or masses palpated, and no cervical lymphadenopathy. Supple, full range of motion without nuchal rigidity, or vertebral point tenderness. No Meningismus. Chest/axilla: Normal chest wall appearance and motion. Nontender with no deformity. No lesions are appreciated. Abdomen/GI: Soft, non-tender, with normal bowel sounds. No distension or tympany. No guarding or rebound. No evidence of tenderness throughout. Back: No spinal tenderness. No costovertebral tenderness. Full range of motion. Male : Normal genitalia with no discharge or lesions. Skin: Warm, dry with normal turgor. Normal color with no rashes, no lesions, and no evidence of cellulitis. Neuro: Awake and alert, GCS 15, oriented to person, place, time, and situation. Cranial nerves II-XII grossly intact. Motor strength 5/5 in all extremities. Sensory grossly intact. Cerebellar exam normal. Normal gait. Psych: Awake, alert, with orientation to person, place and time. Behavior, mood, and affect are within normal limits. 20:12 Cardiovascular: Rate: tachycardic, actual rate is 96 bpm, Rhythm: regular, Pulses: Pulses are 4+ in bilateral radial, brachial, femoral, popliteal, posterior tibial and and dorsalis pedis arteries.. Heart sounds: normal, JVD: is noted bilaterally, to 3 cm. 20:12 Respiratory: moderate respiratory distress is noted, Respirations: labored breathing, that is moderate, Breath sounds: rales, that are moderate, are located in both bases, bronchial sounds, decreased breath sounds, rhonchi, + upper airway congestion. 20:12 Musculoskeletal/extremity: ROM: full active range of motion, full passive range of motion, Circulation is intact in all extremities. Sensation intact. Compartment Syndrome exam of affected extremity: is normal. DVT Exam: no pain, no tenderness, negative Homans' sign noted on exam, no appreciated bluish discoloration, no erythema, no increased warmth, swelling. 21:06 ECG was reviewed by the Attending Physician. [facility] Vital Signs: 19:35 BP 184 / 174; Pulse 96; Resp 24; Temp 97.9(O); Pulse Ox 90% on 4 lpm NC; Weight 56.7 vg1 kg; Height 5 ft. 4 in. (162.56 cm); 20:15 BP 197 / 96; Pulse 90; Resp 18; Pulse Ox 100% on 35% BiPAP; ad5 21:00 BP 174 / 86; Pulse 90; Resp 24; Pulse Ox 97% on 35% BiPAP; ad5 21:30 BP 164 / 87; Pulse 90; Resp 21 S; Pulse Ox 98% on 30% BiPAP; ad5 03/21 00:00 BP 174 / 98; Pulse 94; Resp 20; Pulse Ox 96% on BiPAP; wh 03/23 22:44 BP 162 / 85; Pulse 90; Resp 25; Pulse Ox 91% on 3 lpm NC; rr5 03/20 19:35 Body Mass Index 21.46 (56.70 kg, 162.56 cm) vg1 Procedures: 03/20 21:08 Peripheral line: by aseptic technique a peripheral line was placed in the left external joseline jugular vein. MDM: 19:51 Patient medically screened. [facility] 20:17 Differential diagnosis: asthma, CHF exacerbation, Chronic Obstructive Pulmonary Disease joseline bronchitis, flu, URI. Antibiotic administration: zosyn. The patient's [place] Deep Vein Thrombosis Score was calculated as follows: Heart Rate >100 BPM (1.5 Pts) Total Score: 0-2 Pts- Low Risk. The patient's pulmonary embolism risk score was calculated as follows: the patients heart rate is greater than 100 beats per minute (1.5 Pts). Immunization status: Pneumococcal vaccine: Influenza vaccine:. Data reviewed: vital signs, nurses notes, lab test result(s), EKG, radiologic studies, plain films. Data interpreted: field traffic investigator: not applicable for this patient encounter. rhythm is regular, Pulse oximetry: on 2L(s) per nasal canula, is 90 %. Test interpretation: by ED physician or midlevel provider: ECG, plain radiologic studies. Counseling: I had a detailed discussion with the patient and/or guardian regarding: the historical points, exam findings, and any diagnostic results supporting the discharge/admit diagnosis, the presence of at least one elevated blood pressure reading (>120/80) during this emergency department visit, lab results, radiology results. 03/20 20:11 Order name: Basic Metabolic Panel [facility] 03/20 20:11 Order name: CBC with Diff [facility] 03/20 20:11 Order name: LFT's [facility] 03/20 20:11 Order name: Magnesium [facility] 03/20 20:11 Order name: NT PRO-BNP [facility] 03/20 20:11 Order name: PT-INR [facility] 03/20 20:11 Order name: Troponin (emerg Dept Use Only) [facility] 03/20 20:11 Order name: Lipase [facility] 03/20 20:11 Order name: Blood Culture Adult (2) [facility] 03/20 20:11 Order name: Lactate [facility] 03/20 20:11 Order name: Flu [facility] 03/20 20:11 Order name: COVID-19 : Document "Date of Symptom Onset" if Symptomatic. [facility] 03/20 20:21 Order name: Type And Screen [facility] 03/20 20:21 Order name: AMMONIA [facility] 03/20 20:46 Order name: CORONAVIRUS [facility] 03/20 20:47 Order name: Influenza Screen (A [facility] 03/20 20:54 Order name: Protime (+INR); Complete Time: 22:06 [facility] 03/20 20:57 Order name: CBC with Automated Diff; Complete Time: 22:06 [facility] 03/20 21:16 Order name: Manual Differential; Complete Time: 22:06 [facility] 03/20 21:29 Order name: COVID-19/FLU A+B; Complete Time: 22:06 [facility] 03/20 21:36 Order name: Lactate; Complete Time: 22:06 [facility] 03/20 22:10 Order name: Basic Metabolic Panel; Complete Time: 22:12 [facility] 03/20 22:10 Order name: Liver (Hepatic) Function; Complete Time: 22:12 [facility] 03/20 22:10 Order name: Troponin (Emerg Dept Use Only); Complete Time: 22:12 EDMS 03/20 22:10 Order name: NT PRO-BNP; Complete Time: 22:12 EDMS 03/20 22:10 Order name: Magnesium; Complete Time: 22:12 EDMS 03/20 22:10 Order name: Lipase; Complete Time: 22:12 EDMS 03/20 22:35 Order name: ABG Arterial Blood Gas; Complete Time: 23:50 EDMS 03/20 22:46 Order name: Ammonia; Complete Time: 23:50 EDMS 03/20 23:25 Order name: Type and Screen; Complete Time: 23:50 EDMS 03/20 20:11 Order name: XRAY Chest (1 view) joseline 03/20 20:11 Order name: BIPAP joseline 03/20 21:00 Order name: RAD; Complete Time: 22:06 EDMS 03/21 02:16 Order name: D-Dimer EDMS 03/21 02:23 Order name: Lactate Sepsis 2 HR Follow-up EDMS 03/21 03:08 Order name: Comprehensive Metabolic Panel EDMS 03/21 03:08 Order name: Troponin I EDMS 03/21 06:34 Order name: CBC with Automated Diff EDMS 03/21 06:40 Order name: Blood Culture EDMS 03/21 06:49 Order name: Phosphorus EDMS 03/21 06:49 Order name: Magnesium EDMS 03/21 12:09 Order name: Basic Metabolic Panel EDMS 03/21 13:00 Order name: Troponin I EDMS 03/21 13:28 Order name: Urinalysis EDMS 03/21 13:34 Order name: Urine Microscopic Only EDMS 03/22 04:44 Order name: Comprehensive Metabolic Panel EDMS 03/22 07:49 Order name: Urine Culture EDMS 03/22 12:16 Order name: RAD EDMS 03/22 16:12 Order name: Comprehensive Metabolic Panel EDMS 03/22 22:15 Order name: Comprehensive Metabolic Panel EDMS 03/23 06:07 Order name: CBC with Automated Diff EDMS 03/23 07:33 Order name: Comprehensive Metabolic Panel EDMS 03/23 07:52 Order name: Glucose, Ancillary Testing EDMS 03/23 10:01 Order name: Manual Differential EDMS 03/23 14:11 Order name: Comprehensive Metabolic Panel EDMS 03/23 22:02 Order name: Comprehensive Metabolic Panel EDMS 03/20 20:11 Order name: EKG; Complete Time: 20:12 [facility] 03/20 20:11 Order name: Cardiac monitoring; Complete Time: 20:49 [facility] 03/20 20:11 Order name: EKG - Nurse/Tech; Complete Time: 20:49 [facility] 03/20 20:11 Order name: IV Saline Lock; Complete Time: 20:49 [facility] 03/20 20:11 Order name: Labs collected and sent; Complete Time: 20:49 [facility] 03/20 20:11 Order name: O2 Per Protocol; Complete Time: 20:49 [facility] 03/20 20:11 Order name: O2 Sat Monitoring; Complete Time: 20:49 [facility] 03/20 20:11 Order name: Faria; Complete Time: 22:28 [facility] EC:06 Rate is 90 beats/min. Rhythm is regular. QRS Cotton is Normal. AL interval is normal. QRS joseline interval is normal. QT interval is normal. No Q waves. T waves are Normal. ST Segment is depressed in leads II, III, aVF. Clinical impression: NSR w/ Non-specific ST/T Changes and No evidence of ischemia. Interpreted by me. Reviewed by me. Administered Medications: 20:12 Drug: Lasix (furosemide) 40 mg Route: IVP; Site: right upper arm; ad5 22:30 Follow up: Response: No adverse reaction ad5 20:13 Drug: ProTONIX (pantoprazole) 40 mg Route: IVP; Site: right upper arm; ad5 22:32 Follow up: Response: No adverse reaction ad5 20:15 Drug: Zosyn (piperacillin-tazobactam) 3.375 grams Route: IVPB; Infused Over: 60 mins; ad5 Site: right upper arm; 22:31 Follow up: Response: No adverse reaction ad5 20:16 Drug: Decadron - Dexamethasone 10 mg Route: IVP; Site: left jugular; ad5 22:32 Follow up: Response: No adverse reaction ad5 20:20 Drug: Nitro-Bid (nitroglycerin) Ointment 2 % 1 inches Route: Transdermal; Site: ad5 anterior chest wall; 22:30 Follow up: Response: No adverse reaction ad5 21:40 Drug: AtroVENT (ipratropium) Aerosol 0.5 mg {Note: Administered by RT.} Route: jb4 Inhalation; 22:30 Follow up: Response: No adverse reaction ad5 21:41 Drug: Xopenex (levalbuterol) 3.75 mg {Note: Administered by RT.} Route: Inhalation; jb4 22:31 Follow up: Response: No adverse reaction ad5 23:51 Drug: NS 0.9% 300 ml Route: IV; Rate: bolus; Site: left jugular; 03/21 00:47 Follow up: Response: No adverse reaction; IV Status: Completed infusion 03/20 23:53 Drug: Lasix (furosemide) 20 mg {Note: 174/98.} Route: IVP; Site: left jugular; 03/21 00:48 Follow up: Response: No adverse reaction 03/20 23:55 Drug: D50W 50 ml Route: IVP; Site: left jugular; 03/21 00:48 Follow up: Response: No adverse reaction 03/20 23:56 Drug: Kayexalate (polystyrene) 45 grams Route: PO; 03/21 00:48 Follow up: Response: No adverse reaction 03/20 23:57 Drug: Insulin Regular Human 10 units {Co-Signature: wild (Saurabh Lee RN).} Route: IVP; Site: left jugular; 03/21 00:48 Follow up: Response: No adverse reaction 00:47 Drug: Calcium Gluconate 1 grams Route: IVPB; Infused Over: 15 mins; Site: left jugular; 00:47 Drug: Lasix (furosemide) 80 mg {Note: 142/83 .} Route: IVP; Site: left jugular; Disposition: 03/20/21 22:29 Hospitalization ordered by Brenda Son for Inpatient Admission. Preliminary diagnosis are Acute kidney failure - on chronic, Dyspnea, unspecified, Essential (primary) hypertension, Elevated white blood cell count, Sepsis, unspecified organism, Hyperkalemia, Unspecified combined systolic (congestive) and diastolic (congestive) heart failure, Bandemia. - Bed requested for Telemetry/MedSurg (Inpatient). - Status is Inpatient Admission. rr5 - Condition is Serious. - Problem is new. - Symptoms have improved. Signatures: Dispatcher [employer] EDOsei Gallardo MD MD cha Garcia, Cindy, RN RN Saurabh Lee RN RN jbMat Keith RN RN Timothy Flores RN RN rr5 Virginia Javed RN RN vg1 Didier, Gabe tt3 Nathen Smith PA PA ej Davidson, Andrea ad5 James Bryson RN jb4 Corrections: (The following items were deleted from the chart) 03/20 23:44 22:29 Hospitalization Ordered by Brenda Son MD for Inpatient Admission. Preliminary cg diagnosis is Acute kidney failure - on chronic; Dyspnea, unspecified; Essential (primary) hypertension; Elevated white blood cell count; Sepsis, unspecified organism; Hyperkalemia; Unspecified combined systolic (congestive) and diastolic (congestive) heart failure; Bandemia. Bed requested for Intensive Care Unit. Status is Inpatient Admission. Condition is Serious. Problem is new. Symptoms have improved. [facility] 03/23 21:44 03/20 23:44 03/20/2021 22:29 Hospitalization Ordered by Brenda Son MD for Inpatient tt3 Admission. Preliminary diagnosis is Acute kidney failure - on chronic; Dyspnea, unspecified; Essential (primary) hypertension; Elevated white blood cell count; Sepsis, unspecified organism; Hyperkalemia; Unspecified combined systolic (congestive) and diastolic (congestive) heart failure; Bandemia. Bed requested for [facility] ER HOLD. Status is Inpatient Admission. Condition is Serious. Problem is new. Symptoms have improved. 03/23 22:44 21:44 03/20/2021 22:29 Hospitalization Ordered by Brenda Son MD for Inpatient rr5 Admission. Preliminary diagnosis is Acute kidney failure - on chronic; Dyspnea, unspecified; Essential (primary) hypertension; Elevated white blood cell count; Sepsis, unspecified organism; Hyperkalemia; Unspecified combined systolic (congestive) and diastolic (congestive) heart failure; Bandemia. Bed requested for Telemetry/MedSurg (Inpatient). Status is Inpatient Admission. Condition is Serious. Problem is new. Symptoms have improved. tt3
[2021-03-20 22:32] LABS: Arterial Blood Carboxyhemoglob 1.4 % (0-1.5); Blood Gas Oxyhemoglobin 92.7 % (94-97); Blood O2 Saturation 94.8 % (92-98.5)
[2021-03-20] MEDS ORDERED: FAMOTIDINE 20 MG/2 ML VIAL IV ONE (23:57)
[2021-03-20] MEDS ORDERED: ASPIRIN 81 MG CHEWABLE TABLET ONE (23:57)
[2021-03-20] MEDS ORDERED: FUROSEMIDE 20 MG/ 2ML VIAL ONE (23:59)
[2021-03-20] MEDS ORDERED: FUROSEMIDE 100 MG/10 ML VIAL IV ONE (23:59)
[2021-03-21] MEDS ORDERED: SOD POLYSTYREN SUL 15 GM/60 ML UCUP ONE
[2021-03-21] MEDS ORDERED: NA CHLORIDE 0.9% 500 ML ONE
[2021-03-21] MEDS ORDERED: CALCIUM GLUCONATE 1 GM IVPB 1 GM/50 ML BAG IV ONE
[2021-03-21] MEDS ORDERED: INSULIN -REGULAR HUMAN 50 UNIT/0.5 ML ML ONE ×2 (00:03→05:00)
[2021-03-21] MEDS: HEPARIN 5000 UNIT/ML 1 ML VIAL SQ SCH ×3 (01:03→17:00)
[2021-03-21] MEDS ORDERED: ONDANSETRON 4 MG/2 ML VIAL IV PRN (01:03)
[2021-03-21] MEDS ORDERED: HYDRALAZINE HCL 20 MG/ML VIAL IV PRN (01:03)
[2021-03-21] MEDS: METHYLPREDNISOLONE 40 MG INJ IV SCH ×2 (01:03→09:00)
[2021-03-21] MEDS ORDERED: BENZONATATE 100 MG CAP PO PRN (01:03)
[2021-03-21] MEDS ORDERED: IPRATROPIUM BROM 0.5MG/2.5ML ONE ×4 (01:48→19:24)
[2021-03-21] MEDS ORDERED: HYDROCORTISONE SUC 100 MG INJ ONE (02:11)
[2021-03-21] MEDS ORDERED: HEPARIN 5000 UNIT/ML 1 ML VIAL ONE (02:11)
[2021-03-21 02:35] LABS: Albumin 2.5 g/dL (3.4-5.0); Bilirubin Total 0.4 mg/dL (0.2-1.0); Troponin I 0.09 ng/mL (0.0-0.045)
[2021-03-21] MEDS: ALBUTEROL 2.5 MG/3 ML NEB SOL NEB SCH ×4 (02:40→19:25)
[2021-03-21] MEDS: IPRATROPIUM BROM 0.5MG/2.5ML NEB SCH ×4 (02:40→19:25)
[2021-03-21] MEDS ORDERED: GLUCAGON 1 MG/VIAL IM PRN (04:03)
[2021-03-21] MEDS ORDERED: D50W 25 GM/50 ML SYRINGE IV PRN (04:03)
[2021-03-21] MEDS ORDERED: D50W 25 GM/50 ML SYRINGE IV ONE ×3 (04:03→05:01)
[2021-03-21] MEDS ORDERED: ALBUTEROL 2.5 MG/3 ML NEB SOL NEB ONE (04:03)
[2021-03-21] MEDS ORDERED: INSULIN -REGULAR HUMAN 50 UNIT/0.5 ML ML IV ONE (04:07)
[2021-03-21] MEDS ORDERED: NA BICARB IV SCH ×2 (04:17)
[2021-03-21] MEDS ORDERED: NACHLORIDE IV SCH ×2 (04:17)
--- NOTE | 2021-03-21 04:26 | P.HP ---
Certification for Inpatient Patient admitted to: Inpatient With expected LOS: >2 Midnights Patient will require the following post-hospital care: None Practitioner: I am a practitioner with admitting privileges, knowledge of patient current condition, hospital course, and medical plan of care. Services: Services provided to patient in accordance with Admission requirements found in Title 42 Section 412.3 of the Code of Federal Regulations Patient History Date of Service: 03/21/21 Primary Care Provider: Claudette Reason for admission: ARF, COPD exacerbation History of Present Illness: Mr. Narvaez is a 65 yo M with COPD on 2L Home O2, afib, CHF, CAD, h/o lung cancer s/p lobectomy here today with cough, SOB, and VASQUEZ for the past fw days. He reports some relief of symptoms with breathing treatment. Reports edema, wheezing, fatigue, weakness. Denies night sweats, chills, nausea, vomiting and diarrhea. WBC 18.7. Na 129. K 6.5. BUN 90. Cr 3.31. GFR 19. Glu 137. Mg 3.2. CXR shows Interstitial pattern appears prominent within the right lung. This all may be chronic or indicate an acute process such as atypical pneumonia or pneumonitis Allergies prednisone Adverse Reaction (Severe, Verified 02/23/21 13:53) Shortness of breath Home Medications: Cholecalciferol (Vitamin D3) [Vitamin D3] 2,000 unit PO DAILY 07/07/20 Cyclobenzaprine [Flexeril*] 5 mg PO BEDTIME PRN 07/07/20 Folic Acid 3 mg PO DAILY 07/07/20 Gabapentin [Neurontin*] 300 mg PO BIDP PRN 07/07/20 allopurinoL [Zyloprim*] 100 mg PO BEDTIME 07/07/20 Simvastatin 20 mg PO BEDTIME 07/25/20 Calcium Carbonate [Tums Regular*] 1,000 mg PO DAILY #30 tab 07/28/20 L.acidoph,Paracasei, B.lactis [Probiotic] 1 each PO DAILY 08/03/20 dexAMETHasone [Dexamethasone] 2 mg PO BID 10/22/20 Levothyroxine [Synthroid*] 0.1 mg PO [id number] #30 tab 11/06/20 Ipratropium Neb [Atrovent*] 0.5 mg NEB BID 12/28/20 Acetaminophen [Tylenol Extra Strength] 2 tab PO BIDP PRN 02/02/21 Fluticasone/Umeclidin/Vilanter [Trelegy Ellipta 100-62.5-25] 1 puff IH DAILY 02/02/21 LORazepam [Ativan*] 0.5 mg PO Q12HP PRN 02/02/21 Pantoprazole [Protonix Tab*] 40 mg PO BID 30 Days #60 tab 02/07/21 Furosemide [Lasix] 40 mg PO BIDL 02/14/21 Spironolactone [Aldactone*] 25 mg PO BID tab 02/18/21 Diltiazem Cd [Cardizem Cd*] 240 mg PO DAILY #30 cap 03/10/21 - Past Medical/Surgical History Diabetic: No -: Hypertension -: COPD -: Atrial fibrillation on chronic anticoagulation therapy -: Lung cancer(does not know which type) -: Gout -: Chronic diastolic congestive heart failure -: Chronic kidney disease stage 4 -: Iron deficiency anemia -: Hypothyroidism -: left upper lung lobectomy with lymph node resection -: appendectomy -: tonsillectomy Psychosocial/ Personal History: . Currently lives at home with his - Family History Father -: Heart disease, Hypertension Notes: at 75 yo Mother -: Cancer Notes: no medical history, still living Brother -: Hypertension, Cancer Notes: melanoma Sister -: Other (see notes) Notes: fibromyalgia - Social History Alcohol use: No CD- Drugs: No Caffeine use: No Place of Residence: Home Review of Systems General: Weakness, Malaise Eyes: Unremarkable ENT: Unremarkable Respiratory: Cough, Shortness of Breath, SOB with Excertion, Wheezing, As per HPI Cardiovascular: Edema, As per HPI Gastrointestinal: Unremarkable Genitourinary: Unremarkable Musculoskeletal: Unremarkable Integumentary: Unremarkable Neurological: Unremarkable Lymphatics: Unremarkable Physical Examination - Physical Exam General: Alert, Oriented x3, Cooperative HEENT: Atraumatic, Normocephalic, PERRLA, Mucous membr. moist/pink, EOMI, Sclerae nonicteric Neck: Supple, 2+ carotid pulse no bruit, JVD not distended, No Thyromegaly, No LAD Respiratory: Diminished, Rhonchi/gurgles Cardiovascular: Normal pulses, No gallops, No rubs, Edema, Irregular heart rate/rhythm Capillary refill: <2 Seconds Gastrointestinal: Normal bowel sounds, Soft and benign, Non-distended, No ascites, No tenderness, No masses, No rebound, No guarding Musculoskeletal: No clubbing, No swelling, No contractures, No erythema, No tenderness, No warmth Integumentary: No rashes, No breakdown, No significant lesion, No tenderness/swelling, No erythema, No warmth, No cyanosis Neurological: Normal speech, Normal strength at 5/5 x4 extr, Normal tone, Sensation intact, Cranial nerves 3-12 intact, Normal affect Lymphatics: No axilla or inguinal lymphadenopathy - Studies Laboratory Data (last 24 hrs) 03/20/21 20:00: PT 12.2, INR 1.06 03/20/21 20:00: WBC 18.70 H D, Hgb 11.0 L, Hct 32.8 L, Plt Count 271 D 03/20/21 20:00: Sodium 129 L, Potassium 6.5 H*, BUN 90 H, Creatinine 3.31 H, Glucose 137 H, Magnesium 3.2 H D, Total Bilirubin 0.5, AST 30, ALT 35, Alkaline Phosphatase 99, Lipase 452 H Assessment and Plan - Problems (Diagnosis) (1) SHARITA (acute kidney injury) Current Visit: No Status: Acute (2) COPD exacerbation Onset Date: 04/27/18 Current Visit: No Status: Acute (3) Congestive heart failure Current Visit: No Status: Chronic Qualifiers: Heart failure type: systolic Heart failure chronicity: unspecified Qualified Code(s): I50.20 - Unspecified systolic (congestive) heart failure (4) Elevated troponin Current Visit: No Status: Acute (5) History of lung cancer Current Visit: No Status: Chronic (6) Status post lobectomy of lung Current Visit: No Status: Chronic (7) Atrial fibrillation Current Visit: No Status: Chronic Qualifiers: Atrial fibrillation type: unspecified Qualified Code(s): I48.91 - Unspecified atrial fibrillation (8) Hypertension Current Visit: No Status: Chronic Qualifiers: Hypertension type: essential hypertension Qualified Code(s): I10 - Essent ial (primary) hypertension - Plan Pulm consulted, continue with IV antibiotics, IV steroids, and breathing treatments continue with BiPAP Nephrology consulted, will check BMP q4hr continue to monitor potassium trend troponins BP stable, continue to monitor on telemetry Ddimer pending Discharge Plan: Home Plan to discharge in: 72 Hours - Advance Directives Does patient have a Living Will: No Does patient have a Durable POA for Healthcare: No - Code Status/Comfort Care Code Status Assessed: Yes (full code) Critical Care: No Time Spent Managing Pts Care (In Minutes): 70
[2021-03-21] MEDS ORDERED: ALBUTEROL 2.5 MG/3 ML NEB SOL ONE ×4 (04:53→19:24)
[2021-03-21] MEDS ORDERED: SODIUM BICARB 50 MEQ/50ML VIAL ONE (05:01)
[2021-03-21] MEDS ORDERED: NACHLORIDE 0.45% 500 ML IV ONE (05:01)
[2021-03-21] MEDS ORDERED: FUROSEMIDE 40 MG/4 ML VIAL IV ONE (06:00)
[2021-03-21 06:30] LABS: Absolute Lymphocytes (CBC) 0.1 K/uL (0.7-4.9); Basophils % 0.1 % (0-1.3); Hematocrit 28.9 % (39.6-49.0); Lymphocytes % 0.6 % (15.3-44.8); MPV 8.8 fL (7.6-11.3)
[2021-03-21 06:49] LABS: Magnesium 3.1 mg/dL (1.8-2.4); Phosphorus 4.5 mg/dL (2.5-4.9)
--- NOTE | 2021-03-21 08:43 | EKG ---
Test Date: 2021-03-20 Test Time: 20:27:22 Pick Pulling Machine Operator: SEVEN MEASUREMENT RESULTS: Intervals: Rate: 90 CT: 142 QRSD: 102 QT: 332 QTc: 406 [place]: P: 89 CT: 142 QRS: 267 T: 72 INTERPRETIVE STATEMENTS: Normal sinus rhythm Right superior axis deviation Incomplete right bundle branch block Right ventricular hypertrophy Anterior infarct, age undetermined ST & T wave abnormality, consider inferolateral ischemia Abnormal ECG Compared to ECG 03/09/2021 19:46:06 Right superior axis now present Incomplete right bundle-branch block now present Right ventricular hypertrophy now present Myocardial infarct finding now present ST (T wave) deviation now present Possible ischemia now present Electronically Signed On 03-21-21 08:41:30 CDT by Nasir Bailey
[2021-03-21] MEDS ORDERED: Levofloxacin 750mg IV 750 MG/150 ML BAG IV ONE ×2 (09:00→09:37)
[2021-03-21] MEDS ORDERED: Levofloxacin 750mg IV 750 MG/150 ML BAG IV SCH (09:00)
[2021-03-21] MEDS ORDERED: METHYLPREDNISOLONE 40 MG INJ ONE (09:39)
[2021-03-21 12:00] LABS: Potassium 5.4 mmol/L (3.5-5.1)
[2021-03-21] MEDS ORDERED: DILTIAZEM HCL 120 MG SR CAP PO SCH (13:23)
[2021-03-21] MEDS ORDERED: CYCLOBENZAPRINE 10 MG TAB PO PRN (13:23)
[2021-03-21] MEDS ORDERED: LORAZEPAM 1 MG TABLET PO PRN (13:23)
[2021-03-21 13:25] LABS: Urine Appearance CLOUDY (Clear); Urine Bilirubin NEGATIVE (Negative); Urine Blood 1+ (Negative); Urine Color YELLOW (Yellow); Urine Glucose NEGATIVE (Negative); Urine Protein NEGATIVE (Negative); Urine Urobilinogen 0.2 mg/dL (0.2-1.0); Urine pH 5.5 (5.0-7.0)
[2021-03-21 13:28] LABS: Urine Microscopic Reflex ORDER UMIC
[2021-03-21 13:33] LABS: Urine Bacteria >50 /HPF (NONE SEEN)
[2021-03-21] MEDS ORDERED: LORAZEPAM 1 MG TABLET ONE (14:54)
[2021-03-21] MEDS: DILTIAZEM HCL 180 MG SR CAP PO SCH (15:00)
--- NOTE | 2021-03-21 15:03 | CON ---
Date of Consultation: 03/21/2021 Reason For Consultation: Elevated BUN and creatinine, fluid management, hyperkalemia. History Of Present Illness: This is a pleasant 65-year-old gentleman, well known to me from the office with significant past medical history of advanced COPD, follows up with Dr. Sawant, status post lobectomy, lung cancer status post lobectomy, coronary artery disease complicated with congestive heart failure with global hypokinesia, ejection fraction of 38%, chronic kidney disease secondary to cardiorenal, baseline creatinine on last admission to 3.3- 2.6 with GFR of 19-23, the patient was in his regular state of health. The patient came complaining from shortness of breath and cough. Primary workup found potassium 6.5 with creatinine 3.3 and GFR 19. For that reason, we have been consulted. Over the night, we started the patient on diuresis with hydration and treatment for the hyperkalemia. Potassium down from 6.5 to 6. No EKG changes. The patient had good urine output. Past Medical History: Includes; 1. Advanced COPD. 2. Lung cancer status post lobectomy. 3. Coronary artery disease complicated with congestive heart failure, ejection fraction of 38%. 4. Chronic kidney disease, stage 4, secondary to cardiorenal, baseline creatinine 2.7-3, GFR 20 to 23. Allergies: NO KNOWN DRUG ALLERGIES. Social History: Ex-smoker. Denied alcohol. Denied drugs abuse. Family History: Positive for hypertension. Past Surgical History: Includes bronchoscopy, lobectomy, appendectomy. Home Medications: Include cholecalciferol, folic acid, gabapentin, allopurinol, simvastatin, calcium carbonate, dexamethasone, levothyroxine, ipratropium, Tylenol, pantoprazole, Lasix 40 b.i.d., Aldactone 25 b.i.d. Review of Systems: Head and Neck: No red eye. No ear pain. GI: No nausea. No vomiting. : No polyuria. No dysuria. No hematuria. [place]: Not applicable. Respiratory: Has shortness of breath. Has cough. Cardiovascular: Has palpitation. Endocrine: No polydipsia. Skin: No rash. Neuro: Has neuropathy. Musculoskeletal: Generalized fatigue. Physical Examination: General: When I saw the patient; the patient lying in bed, on nasal cannula. Vital Signs: Blood pressure of 152/77, pulse of 89. The patient had good urine output. Chest: Wheezing bilateral. Heart: S1, S2. Systolic murmur. Irregular. Abdomen: Soft, nontender. Extremities: No edema. Neuro: Alert, oriented x3. The patient had urine output of 1200, negative of 1800. Laboratory Data: Sodium 131, potassium 6, bicarb 27, BUN 87, creatinine 3.1, calcium of 10. WBC 13.5, H and H 9.8/29.9. Current Medications: The patient on include Levaquin 500 every 48 hours, heparin, hydralazine, Lasix, ipratropium, Zofran. Assessment And Plan: 1. Chronic kidney disease with acute kidney injury secondary to cardiorenal, complicated with hyperkalemia. I am going to continue resuming Lasix 40 b.i.d. 2. Hyperkalemia secondary to renal failure. Discontinue spironolactone. I am going to bolus the patient with sodium bicarb and resume the diuresis, and we will follow up. 3. Congestive heart failure with exacerbation. We will optimize the fluid status with diuresis. 4. Chronic obstructive pulmonary disease exacerbation. Continue current tx . Follow up with Pulmonary. time spend discussing the case with the patient , exam the patient face to face , placing order, discussing the case with the staff and hospitalist 65 min HARPAL Voice ID: [id number] Report ID: [id number] MTDD
--- NOTE | 2021-03-21 15:17 | P.PN ---
Subjective Date of Service: 03/21/21 Spoke with Nephrology and most likely start of Aldactone caused a lot of this. Also there concerned with the dosage of dexamethasone patient was getting. This also probably resulted in patient's worsening uremia as well as hyperkalemia. At this time, will adjust dosage of medications and DC Aldactone as well as decrease the dosage of dexamethasone. Continue with current plan of care at this time. Review of Systems 10-point ROS is otherwise unremarkable Physical Examination - Vital Signs Temperature: 98.2 F Blood Pressure: 140/65 Pulse: 111 Respirations: 20 Pulse Ox (%): 95 - Physical Exam General: Alert, In no apparent distress, Oriented x3 Respiratory: Diminished, Expiratory wheezes Cardiovascular: Regular rate/rhythm, Normal S1 S2, No murmurs Gastrointestinal: Normal bowel sounds, Soft and benign, Non-distended, No tenderness Musculoskeletal: No clubbing, No swelling, No tenderness, Swelling Neurological: Normal tone, Normal affect Lymphatics: No axilla or inguinal lymphadenopathy - Studies Laboratory Data (last 24 hrs) 03/20/21 20:00: PT 12.2, INR 1.06 03/20/21 20:00: WBC 18.70 H D, Hgb 11.0 L, Hct 32.8 L, Plt Count 271 D 03/20/21 20:00: Sodium 129 L, Potassium 6.5 H*, BUN 90 H, Creatinine 3.31 H, Glucose 137 H, Magnesium 3.2 H D, Total Bilirubin 0.5, AST 30, ALT 35, Alkaline Phosphatase 99, Lipase 452 H Microbiology Data (last 24 hrs): 03/20/21 20:00 Blood - Blood Anaerobic Blood Culture - Final Medications List Reviewed: Yes Assessment & Plan - Problems (Diagnosis) (1) SHARITA (acute kidney injury) Current Visit: No Status: Acute (2) Acute on chronic anemia Current Visit: No Status: Acute (3) Acute worsening of stage 3 chronic kidney disease Current Visit: No Status: Acute (4) COPD exacerbation Onset Date: 04/27/18 Current Visit: No Status: Acute (5) Congestive heart failure, acute Current Visit: No Status: Acute (6) Atrial fibrillation Current Visit: No Status: Chronic Qualifiers: Atrial fibrillation type: unspecified Qualified Code(s): I48.91 - Unspecified atrial fibrillation (7) Chronic renal disease Current Visit: No Status: Chronic Qualifiers: Chronic kidney disease stage: stage 3 (moderate) - Plan Plan: 1. Dc Aldactone 2. Adjust dose of dexamethasone 3. Monitor renal function 4. Monitor volume status closely 5. Continue with inhaler therapy 6. Long-term prognosis is poor with patient with a history of lung cancer and chronic renal insufficiency. It appears his renal function is progressively worsening. He will probably need to proceed with long-term dialysis but with his diagnosis of cancer I am not sure if that is something that patient would want engage with. Dr. Wilkins has been following up with patient. He is his primary care provider. We will have Dr. Wilkins see patient is AM. 7. Strict blood pressure and blood sugar control 8. GI and DVT prophylaxis Discharge Plan: Home Plan to discharge in: Greater than 2 days - Advance Directives Does patient have a Living Will: No Does patient have a Durable POA for Healthcare: No - Code Status/Comfort Care Code Status Assessed: Yes Code Status: Full Code Critical Care: No Time Spent Managing PTS Care (In Minutes): 35
[2021-03-21] MEDS: GABAPENTIN 300 MG CAP PO PRN (16:52)
[2021-03-21] MEDS: ACETAMINOPHEN 500 MG TAB PO PRN (16:52)
[2021-03-21] MEDS: FUROSEMIDE 40 MG TABLET PO SCH (16:53)
[2021-03-21] MEDS ORDERED: METHYLPREDNISOLONE 125 MG INJ IV SCH (17:00)
[2021-03-21] MEDS ORDERED: ACETAMINOPHEN 500 MG TAB ONE (17:10)
[2021-03-21] MEDS ORDERED: FUROSEMIDE 40 MG TABLET ONE (17:10)
[2021-03-21] MEDS ORDERED: GABAPENTIN 300 MG CAP ONE (17:10)
[2021-03-21] MEDS: SPIRONOLACTONE 25 MG TABLET PO SCH (21:00)
[2021-03-21] MEDS: PANTOPRAZOLE 40MG TABLET PO SCH (21:00)
[2021-03-21] MEDS: ATORVASTATIN 10 MG TAB PO SCH (21:00)
[2021-03-21] MEDS ORDERED: HOME MED 1 EA UNK (Simvastatin [Simvastatin] 20 MG Tablet) PO SCH (21:00)
[2021-03-21] MEDS: dexAMETHasone 4 MG TAB PO SCH (21:00)
[2021-03-21] MEDS: allopurinoL 100 MG TAB PO SCH (21:00)
[2021-03-21] MEDS ORDERED: PANTOPRAZOLE 40MG TABLET PO ONE (21:25)
[2021-03-21] MEDS ORDERED: dexAMETHasone 4 MG TAB ONE (21:25)
[2021-03-22] MEDS: HEPARIN 5000 UNIT/ML 1 ML VIAL SQ SCH ×3 (00:01→17:34)
[2021-03-22] MEDS ORDERED: HEPARIN 5000 UNIT/ML 1 ML VIAL ONE ×4 (00:09→23:40)
[2021-03-22] MEDS: ALBUTEROL 2.5 MG/3 ML NEB SOL NEB SCH ×2 (01:12→07:33)
[2021-03-22] MEDS: IPRATROPIUM BROM 0.5MG/2.5ML NEB SCH ×4 (01:12→20:15)
[2021-03-22] MEDS ORDERED: ALBUTEROL 2.5 MG/3 ML NEB SOL ONE ×2 (01:18→07:50)
[2021-03-22] MEDS ORDERED: IPRATROPIUM BROM 0.5MG/2.5ML ONE ×4 (01:19→20:19)
[2021-03-22] MEDS ORDERED: CYCLOBENZAPRINE 10 MG TAB ONE (04:34)
[2021-03-22 04:42] LABS: Albumin 2.1 g/dL (3.4-5.0); Bilirubin Total 0.3 mg/dL (0.2-1.0); Potassium 5.3 mmol/L (3.5-5.1); Protein, Total 6.2 g/dL (6.4-8.2)
[2021-03-22] MEDS: LEVOTHYROXINE SOD 0.1 MG TAB PO SCH (06:00)
[2021-03-22] MEDS ORDERED: CALCIUM CARBONATE CHEW 500MG TAB PO SCH (09:00)
[2021-03-22] MEDS ORDERED: DEXAMETHASONE 2 MG PO SCH (09:00)
[2021-03-22] MEDS: dexAMETHasone 4 MG TAB PO SCH ×2 (10:24→20:43)
[2021-03-22] MEDS ORDERED: FUROSEMIDE 40 MG TABLET ONE ×2 (10:24→17:52)
[2021-03-22] MEDS ORDERED: PANTOPRAZOLE 40MG TABLET PO ONE ×2 (10:24→20:19)
[2021-03-22] MEDS: FUROSEMIDE 40 MG TABLET PO SCH ×2 (10:24→17:34)
[2021-03-22] MEDS: SPIRONOLACTONE 25 MG TABLET PO SCH (10:25)
[2021-03-22] MEDS: ASPIRIN EC 81 MG TAB PO SCH (10:25)
[2021-03-22] MEDS ORDERED: ASPIRIN EC 81 MG TAB PO ONE (10:25)
[2021-03-22] MEDS: PANTOPRAZOLE 40MG TABLET PO SCH ×2 (10:25→20:43)
[2021-03-22] MEDS ORDERED: CALCIUM CARBONATE CHEW 500MG TAB ONE (10:33)
[2021-03-22] MEDS ORDERED: dexAMETHasone 4 MG TAB ONE ×2 (10:33→20:22)
[2021-03-22] MEDS ORDERED: SPIRONOLACTONE 25 MG TABLET ONE (10:34)
[2021-03-22] MEDS: DILTIAZEM HCL 180 MG SR CAP PO SCH (11:13)
[2021-03-22] MEDS: SERTRALINE HCL 50 MG TAB PO SCH (11:14)
[2021-03-22] MEDS ORDERED: ALBUTEROL 2.5 MG/3 ML NEB SOL NEB PRN (11:59)
--- NOTE | 2021-03-22 12:01 | P.CNS ---
Date of Consult: 03/22/21 Reason for Consult: COPD exacerbation Primary Care Provider: Claudette Chief Complaint: ARF, COPD exacerbation History of Present Illness: Patient is 65 years of age with terminal COPD chronic renal failure and congestive heart failure recurrent hospital admissions came in again lower extremity edema worsening dyspnea Allergies prednisone Adverse Reaction (Severe, Verified 02/23/21 13:53) Shortness of breath Home Medications: Cholecalciferol (Vitamin D3) [Vitamin D3] 2,000 unit PO DAILY 07/07/20 Cyclobenzaprine [Flexeril*] 5 mg PO BEDTIME PRN 07/07/20 Folic Acid 3 mg PO DAILY 07/07/20 Gabapentin [Neurontin*] 300 mg PO BIDP PRN 07/07/20 allopurinoL [Zyloprim*] 100 mg PO BEDTIME 07/07/20 Simvastatin 20 mg PO BEDTIME 07/25/20 Calcium Carbonate [Tums Regular*] 1,000 mg PO DAILY #30 tab 07/28/20 L.acidoph,Paracasei, B.lactis [Probiotic] 1 each PO DAILY 08/03/20 dexAMETHasone [Dexamethasone] 2 mg PO BID 10/22/20 Levothyroxine [Synthroid*] 0.1 mg PO GREWN0IL #30 tab 11/06/20 Ipratropium Neb [Atrovent*] 0.5 mg NEB BID 12/28/20 Acetaminophen [Tylenol Extra Strength] 2 tab PO BIDP PRN 02/02/21 Fluticasone/Umeclidin/Vilanter [Trelegy Ellipta 100-62.5-25] 1 puff IH DAILY 02/02/21 LORazepam [Ativan*] 1 mg PO Q12HP PRN 02/02/21 Pantoprazole [Protonix Tab*] 40 mg PO BID 30 Days #60 tab 02/07/21 Furosemide [Lasix] 40 mg PO BIDL 02/14/21 Spironolactone [Aldactone*] 25 mg PO BID tab 02/18/21 Aspirin [Aspirin EC 81 MG] 81 mg PO 03/21/21 Diltiazem Cd [Cardizem Cd*] 360 mg PO DAILY 03/21/21 Sertraline [Zoloft] 25 mg PO DAILY 03/21/21 dexAMETHasone [Dexamethasone] 2 mg PO 03/21/21 - Past Medical/Surgical History Diabetic: No -: Hypertension -: COPD -: Atrial fibrillation on chronic anticoagulation therapy -: Lung cancer(does not know which type) -: Gout -: Chronic diastolic congestive heart failure -: Chronic kidney disease stage 4 -: Iron deficiency anemia -: Hypothyroidism -: left upper lung lobectomy with lymph node resection -: appendectomy -: tonsillectomy Psychosocial/ Personal History: . Currently lives at home with his - Family History Father Medical History: Heart disease, Hypertension Notes: at 75 yo Mother Medical History: Cancer Notes: no medical history, still living Brother Medical History: Hypertension, Cancer Notes: melanoma Sister Medical History: Other (see notes) Notes: fibromyalgia - Social History Smoking Status: Current some day smoker Alcohol use: No CD- Drugs: No Caffeine use: No Place of Residence: Home Review of Systems General: Weakness Respiratory: Shortness of Breath Cardiovascular: Edema Physical Examination Temp Pulse Resp BP Pulse Ox 98.0 F 98 H 25 H 130/69 93 03/21/21 20:00 03/22/21 11:13 03/22/21 11:00 03/22/21 11:13 03/22/21 11:00 General: Alert, Oriented x3, Moderate distress Respiratory: Expiratory wheezes Cardiovascular: Edema, Irregular heart rate/rhythm Gastrointestinal: Normal bowel sounds, Soft and benign Musculoskeletal: No clubbing Integumentary: No rashes, No significant lesion - Problems (1) COPD exacerbation Onset Date: 04/27/18 Current Visit: No Status: Acute Plan: Patient is 65 years of age recurrent hospital admissions came in again worsening dyspnea lower extremity edema is got chronic renal failure discuss with Nephrology continue with diuretics add Velessa for hyperkalemia chest x-ray no changes got some chronic interstitial changes blood gases satisfactory does not have hypercapnia mildly elevated white count overall prognosis very poor discuss with Nephrology doubt sepsis and is not qualify for noninvasive ventilator patient is not hypercapnic vital signs stable may have a lot of anxiety ESR in on some Zoloft is not a candidate for dialysis right now continue with Lasix and potassium resin binder
--- NOTE | 2021-03-22 12:16 | RAD REPORT ---
EXAM DESCRIPTION: RAD - Foot Right 3 View - 03/22/2021 12:08 pm CLINICAL HISTORY: Right foot pain FINDINGS: No fracture or dislocation is seen. No bone or joint abnormality noted
--- NOTE | 2021-03-22 13:43 | PN ---
Date of Progress Note: 03/22/2021 Subjective: The patient was admitted with shortness of breath, COPD/CHF exacerbation with chronic kidney disease, and severe hyperkalemia. The patient was on spironolactone. After holding spironolactone and gentle hydration with diuresis, potassium started to normalize. The patient is chronically on oxygen. Physical Examination: Vital Signs: Blood pressure 130/69, pulse of 98. The patient had good urine output of 1200. Chest: Mild wheezing bilateral. No crackles. Heart: S1, S2. Systolic murmur. Abdomen: Soft, nontender. Extremity: No edema. Tenderness on the both lower palm of his feet, more on the right feet with ecchymosis. High sensitive area. Neuro: Alert. No focal. Laboratory Data: WBC 13.5, H and H 9.8/28.9. Sodium 131, potassium 5.3, bicarb 30, BUN 91, creatinine 3.2, GFR of 19, calcium 9.5, albumin 2.1. Corrected calcium is 11. Current Medications: The patient on include; 1. Aspirin. 2. Levaquin 500 every 48 hours. 3. Calcium carbonate. 4. Atorvastatin. 5. Diltiazem 360. 6. Gabapentin 300 b.i.d. 7. Zoloft. 8. Lasix 40 b.i.d. 9. Zofran. 10. Pantoprazole. 11. Insulin. 12. Levothyroxine. 13. Allopurinol 100 daily. Assessment And Plan: 1. Chronic kidney disease, stable on his baseline chronic kidney disease stage 4, secondary to cardiorenal, currently looked to me euvolemic, hyperkalemia secondary to spironolactone, has been resolved. I am going to continue current dose of Lasix orally and we will monitor the patient. The patient eventually going to need renal replacement therapy, but I do not see the need to initiate renal replacement therapy right now given the no acceptable GFR and no uremic symptoms, the hyperkalemia secondary to his spironolactone. I am going to follow up the patient closely. Discussed with Dr. Sawant and with the patient, agreed on this plan. 2. Hyperkalemia secondary to spironolactone. The patient needs the spironolactone as a treatment for his congestive heart failure and advanced pulmonary hypertension. I can resume spironolactone tomorrow and we will use Veltassa as binder for his potassium to overcome the risk. 3. Chronic obstructive pulmonary disease exacerbation as by Pulmonary. Continue current treatment. 4. Congestive heart failure with exacerbation. Responding to current diuresis dose. Chest x-ray acceptable. We will follow up. Case discussed with Dr. Sawant, Pulmonary. time spend discussing the case with the patient , exam the patient face to face , placing order, discussing the case with the staff and hospitalist 45 min HARPAL Voice ID: [id number] Report ID: [id number] MTDSandy
[2021-03-22 16:08] LABS: Bilirubin Total 0.3 mg/dL (0.2-1.0); Protein, Total 6.3 g/dL (6.4-8.2)
[2021-03-22 16:12] LABS: Potassium 5.5 mmol/L (3.5-5.1)
[2021-03-22] MEDS: ARFORMOTEROL TARTRATE 15 MCG/2 ML VIAL.NEB NEB SCH (20:15)
[2021-03-22] MEDS: allopurinoL 100 MG TAB PO SCH (20:43)
[2021-03-22] MEDS: ATORVASTATIN 10 MG TAB PO SCH (20:43)
[2021-03-22] MEDS: HYDROCORTISONE 1 % CREAM 30GM TOP SCH (20:44)
--- NOTE | 2021-03-22 21:49 | PN ---
Date of Progress Note: 03/22/2021 The patient is basically status quo as far as his physical finding. He gets markedly dyspneic with m inimal activity. However, he sustained his oxygen saturations on an O2 flow of 3. His potassium has dropped significantly and he continues on the plan to use Veltassa, so we can add Aldactone back to his regimen and continue on the Protonix as well as doing a stool guaiac, as his hemoglobin has dropp ed somewhat. He has required a couple of units of blood over the past few months as well as some IV iron. Since he has been started on his Cardizem, his AFib has been under good control. The patient does complain of marked tenderness in the lower and mid portion of his right foot and little bit on t he left, markedly tender. Seen by Orthopedics, did not feel it was traumatic, possibly skin and hydr ocortisone cream will be tried here. If not he may use some other applications like DuoDerm with the cortisone and foam. Continue to monitor his blood. Dialysis issue has been discussed. HR/MODL Voice ID: [id number] Report ID: [id number]
[2021-03-22 22:03] LABS: Bilirubin Total 0.2 mg/dL (0.2-1.0); Potassium 5.3 mmol/L (3.5-5.1); Protein, Total 6.4 g/dL (6.4-8.2)
[2021-03-23] MEDS: HEPARIN 5000 UNIT/ML 1 ML VIAL SQ SCH ×3 (00:19→17:00)
[2021-03-23] MEDS: IPRATROPIUM BROM 0.5MG/2.5ML NEB SCH ×4 (02:00→20:00)
[2021-03-23] MEDS ORDERED: IPRATROPIUM BROM 0.5MG/2.5ML ONE ×4 (02:24→20:16)
--- NOTE | 2021-03-23 03:56 | CON ---
Date of Consultation: 03/22/2021 History Of Present Illness: This is my first time seeing this patient to my knowledge. He is a elfego ent of Dr. Wilkins who has been admitted for COPD exacerbation as well as renal insufficiency, and I am consulted to see him for pain in the feet. Physical Examination: He has what appeared to be cracking of the soles of both feet with some bleeding, especially of the r ight. This appears to be without sign of underlying trauma or damage to underlying structures. Also does not appear to be infected. Assessment: Cracking of the soles of the feet, most likely best treated with topical treatments and shoe wear modifications with the possibility of placing a DuoDerm on the most affected side. Could b e helpful. Also diabetic footwear could be used. However, the patient does not have diabetes. This will be a diabetic shoe with a Plastazote liner, could be recommended; however, I think Dr. Wilkins is recommending hydrocortisone cream, which could be helpful. Otherwise, may consider Eucerin cream or consulting with wound care nurses. is no sign of infection. Probably can mobilize as tolerated by pain. SE/MODL Voice ID: [id number] Report ID: [id number]
[2021-03-23] MEDS: LEVOTHYROXINE SOD 0.1 MG TAB PO SCH (05:25)
[2021-03-23 05:59] LABS: Absolute Lymphocytes (CBC) 0.1 K/uL (0.7-4.9); Basophils % 0.7 % (0-1.3); Hematocrit 28.3 % (39.6-49.0); Lymphocytes % 0.9 % (15.3-44.8); RBC Red Blood Cell Count 3.22 M/uL (4.33-5.43)
--- NOTE | 2021-03-23 06:15 | P.PN ---
Subjective Date of Service: 03/23/21 Primary Care Provider: Claudette Chief Complaint: ARF, COPD exacerbation Subjective: Other (reports min sob) Physical Examination - Vital Signs Temperature: 97.5 F Blood Pressure: 116/69 Pulse: 88 Respirations: 20 Pulse Ox (%): 96 - Physical Exam General: Other (appears chronically ill) HEENT: Normocephalic Neck: Supple Respiratory: Diminished Cardiovascular: No rubs, No murmurs Gastrointestinal: Soft and benign, Non-distended Musculoskeletal: No swelling - Studies Medications List Reviewed: Yes Assessment And Plan - Plan # CKD4 2/2 CRS Renal fxn at baseline Monitor renal panel # Acute on chronic CHF Cont furosemide 40 mg po bid Resume spironolactone 25 mg po bid Low Na diet # Hyperkalemia Resume spironolactone as above Will plan for Veltassa to start after hosp dc, to allow keeping sofi Low K diet # Hyponatremia Mild, improved Monitor # COPD exacerbation Mngt per Pulmo service
[2021-03-23 06:33] LABS: Albumin 1.9 g/dL (3.4-5.0); Bilirubin Total 0.3 mg/dL (0.2-1.0); Potassium 5.2 mmol/L (3.5-5.1); Protein, Total 6.4 g/dL (6.4-8.2)
[2021-03-23] MEDS ORDERED: ACETAMINOPHEN 500 MG TAB ONE (08:33)
[2021-03-23] MEDS ORDERED: GABAPENTIN 300 MG CAP ONE (08:33)
[2021-03-23] MEDS: ACETAMINOPHEN 500 MG TAB PO PRN (08:59)
[2021-03-23] MEDS: ARFORMOTEROL TARTRATE 15 MCG/2 ML VIAL.NEB NEB SCH ×2 (09:00→20:00)
[2021-03-23] MEDS: DILTIAZEM HCL 180 MG SR CAP PO SCH (09:00)
[2021-03-23] MEDS: GABAPENTIN 300 MG CAP PO PRN (09:00)
[2021-03-23] MEDS: SERTRALINE HCL 50 MG TAB PO SCH (09:00)
[2021-03-23] MEDS: PANTOPRAZOLE 40MG TABLET PO SCH ×2 (09:00→20:52)
[2021-03-23] MEDS: FUROSEMIDE 40 MG TABLET PO SCH ×2 (09:00→17:00)
[2021-03-23] MEDS: dexAMETHasone 4 MG TAB PO SCH ×2 (09:00→20:51)
[2021-03-23] MEDS ORDERED: Levofloxacin500mg IV 500 MG/100 ML BAG IV SCH (09:00)
[2021-03-23] MEDS: HYDROCORTISONE 1 % CREAM 30GM TOP SCH ×3 (09:00→20:52)
[2021-03-23] MEDS: ASPIRIN EC 81 MG TAB PO SCH (09:00)
[2021-03-23] MEDS ORDERED: HEPARIN 5000 UNIT/ML 1 ML VIAL ONE ×2 (09:16→17:28)
[2021-03-23] MEDS ORDERED: FUROSEMIDE 40 MG TABLET ONE ×2 (09:17→17:28)
[2021-03-23] MEDS ORDERED: PANTOPRAZOLE 40MG TABLET PO ONE ×2 (09:17→20:56)
[2021-03-23] MEDS ORDERED: dexAMETHasone 4 MG TAB ONE ×2 (09:17→21:00)
[2021-03-23] MEDS ORDERED: ASPIRIN EC 81 MG TAB PO ONE (09:17)
[2021-03-23 09:29] VITALS: BMI 21.6
[2021-03-23 10:00] LABS: Blood Morphology Comment NOT SEEN (NOT SEEN); Platelet Estimate ADEQ
--- NOTE | 2021-03-23 11:15 | P.PN ---
Subjective Date of Service: 03/23/21 Primary Care Provider: Claudette Chief Complaint: ARF, COPD exacerbation Subjective: Improving (Still very weak short of breath on minimal exertion) Review of Systems General: Weakness Respiratory: Shortness of Breath Physical Examination - Vital Signs Temperature: 97.8 F Blood Pressure: 144/85 Pulse: 104 Respirations: 19 Pulse Ox (%): 95 - Physical Exam General: Alert, Moderate distress Respiratory: Normal air movement, Diminished, Expiratory wheezes Cardiovascular: No edema - Studies Medications List Reviewed: Yes Assessment & Plan - Problems (Diagnosis) (1) COPD exacerbation Onset Date: 04/27/18 Current Visit: No Status: Acute Plan: Patient's condition is stable overall prognosis is very poor consider LTAC placement renal function improving not a candidate for dialysis as per Nephrology continue with dexamethasone is also on Veltessa for hyperkalemia continue with spironolactone oxygenation satisfactory
[2021-03-23 14:11] LABS: Albumin 1.8 g/dL (3.4-5.0); Bilirubin Total 0.3 mg/dL (0.2-1.0); Protein, Total 6.4 g/dL (6.4-8.2)
[2021-03-23] MEDS: SPIRONOLACTONE 25 MG TABLET PO SCH ×2 (17:38→20:51)
[2021-03-23] MEDS ORDERED: SPIRONOLACTONE 25 MG TABLET ONE (17:43)
--- NOTE | 2021-03-23 18:02 | PN ---
Date of Progress Note: 03/23/2021 The patient clinically states he feels about the same. He is still having problems breathing. Lab w ise, he has improved both in regard to his potassium and renal function. Hemoglobin has not dropped significantly. Awaiting stool specimen. Discussion with the patient in regard to an LTAC and he is agreeable. Pugger Helper consulted. HR/MODL Voice ID: [id number] Report ID: [id number]
[2021-03-23] MEDS: ATORVASTATIN 10 MG TAB PO SCH (20:52)
[2021-03-23] MEDS: allopurinoL 100 MG TAB PO SCH (20:52)
[2021-03-23 21:48] LABS: Albumin 1.8 g/dL (3.4-5.0); Bilirubin Total 0.2 mg/dL (0.2-1.0); Potassium 5.3 mmol/L (3.5-5.1); Protein, Total 6.9 g/dL (6.4-8.2)
[2021-03-24] MEDS: HEPARIN 5000 UNIT/ML 1 ML VIAL SQ SCH ×2 (00:20→09:46)
[2021-03-24] MEDS: IPRATROPIUM BROM 0.5MG/2.5ML NEB SCH ×4 (02:35→19:45)
[2021-03-24] MEDS: LEVOTHYROXINE SOD 0.1 MG TAB PO SCH (05:58)
[2021-03-24] MEDS: ACETAMINOPHEN 500 MG TAB PO PRN (06:05)
[2021-03-24 06:26] LABS: Absolute Lymphocytes (CBC) 0.1 K/uL (0.7-4.9); Basophils % 0.5 % (0-1.3); Lymphocytes % 0.9 % (15.3-44.8); MPV 9.3 fL (7.6-11.3); RBC Red Blood Cell Count 3.22 M/uL (4.33-5.43)
[2021-03-24 06:42] LABS: Albumin 1.8 g/dL (3.4-5.0); Bilirubin Total 0.3 mg/dL (0.2-1.0); Magnesium 2.5 mg/dL (1.8-2.4); Phosphorus 3.3 mg/dL (2.5-4.9); Potassium 5.5 mmol/L (3.5-5.1); Protein, Total 6.6 g/dL (6.4-8.2)
[2021-03-24] MEDS: ARFORMOTEROL TARTRATE 15 MCG/2 ML VIAL.NEB NEB SCH ×2 (09:00→19:45)
[2021-03-24] MEDS: HYDROCORTISONE 1 % CREAM 30GM TOP SCH ×2 (09:00→13:45)
[2021-03-24] MEDS: dexAMETHasone 4 MG TAB PO SCH (09:45)
[2021-03-24] MEDS: FUROSEMIDE 40 MG TABLET PO SCH ×2 (09:45→17:19)
[2021-03-24] MEDS: ASPIRIN EC 81 MG TAB PO SCH (09:45)
[2021-03-24] MEDS: PANTOPRAZOLE 40MG TABLET PO SCH (09:46)
[2021-03-24] MEDS: SERTRALINE HCL 50 MG TAB PO SCH (09:46)
[2021-03-24] MEDS: DILTIAZEM HCL 180 MG SR CAP PO SCH (09:46)
[2021-03-24] MEDS: SPIRONOLACTONE 25 MG TABLET PO SCH (09:46)
[2021-03-24 10:59] LABS: Blood Morphology Comment NOT SEEN (NOT SEEN); Platelet Estimate ADEQ
[2021-03-24] MEDS ORDERED: dexAMETHasone 10 MG/ML VIAL IV ONE (12:00)
[2021-03-24 13:44] LABS: Albumin 1.8 g/dL (3.4-5.0); Bilirubin Total 0.4 mg/dL (0.2-1.0); Potassium 5.5 mmol/L (3.5-5.1)
[2021-03-24] MEDS ORDERED: ENOXAPARIN 30 MG/0.3 ML SQ SCH (17:00)
--- NOTE | 2021-03-24 18:38 | PN ---
Date of Progress Note: 03/24/2021 Subjective: The patient's condition has declined somewhat as far as his breathing and heart rate is concerned. He also has difficulty with motion in his legs; however, the cortisone cream has develope d feet. His creatinine has improved. His potassium has gone up. Reviewed these findings and awaiting the LTAC disposition, use 2 doses of Decadron, stop the heparin and switch o chris to Lovenox and in the discussion with Dr. Sawant, the possibility of PE was discussed; however, cannot tolerate the CT. Venous Dopplers will be done of the legs. A filter may be an option. HR/MODL Voice ID: [id number] Report ID: [id number]
[2021-03-24] MEDS ORDERED: SOD POLYSTYREN SUL 15 GM/60 ML UCUP PO ONE (19:32)
[2021-03-24 20:04] VITALS: BP 200/100
[2021-03-24] MEDS ORDERED: LORazepam 2 MG/ML VIAL IV PRN (20:13)
--- NOTE | 2021-03-24 20:20 | RAD REPORT ---
EXAM DESCRIPTION: RAD - Chest Single View - 03/24/2021 8:06 pm CLINICAL HISTORY: chf Chest pain. COMPARISON: Chest Single View dated 03/20/2021; Chest Single View dated 03/07/2021; Chest Single View d ated 02/17/2021; Chest Single View dated 02/14/2021 FINDINGS: Portable technique limits examination quality. Emphysematous changes are present throughout the lungs with left lung lucency, unchanged. The heart i s upper limit normal in size. Prominent degenerative changes present right shoulder.
[2021-03-24] MEDS ORDERED: NA CHLORIDE 0.9% 500 ML IV ONE (21:03)
[2021-03-24] MEDS ORDERED: NA CHLORIDE 0.9% 1,000 ML ONE (21:15)
[2021-03-24] MEDS ORDERED: RSI MEDICATION KIT IV ONE (21:57)
--- NOTE | 2021-03-24 22:02 | CON ---
Date of Consultation: 03/24/2021 Reason For Consultation: Atrial fibrillation. History Of Present Illness: This is a 65-year-old male with history of COPD, advanced on home O2; at rial fibrillation; CHF; coronary artery disease; lung cancer, status post lobectomy; presented with c ough and shortness of breath, and diagnosed with COPD exacerbation, has been having atrial fibrillati on. Rate has been around 100 to 110. As such, I was consulted. He denies having any chest pain. Past Medical History: As outlined above in the HPI. Medications: Refer to reconciliation sheet for detailed list. Allergies: REVIEWED. Family History: No premature coronary artery disease or cancer. Social History: Does not smoke or drink. Does not use any drugs. Review of Systems: All systems reviewed and they were negative except for what is mentioned in the HPI. Physical Examination: Vital Signs: Temperature is 98.8, heart rate 109, breathing at 30, blood pressure 159/77, saturating 98%. General: This is a middle-aged male, in no apparent distress. Head and Neck: Pupils are equal, reactive to light. Intact eye movements. No JVD. No cervical lym phadenopathy. Neck: Supple. Thyroid is not enlarged. Lungs: Diffuse rhonchi and crackles with slight increased respiratory effort. Heart: Irregularly irregular. No extra sounds. Abdomen: Soft, nontender. Bowel sounds positive. No organomegaly. No masses or hernia. No rigidi ty or rebound. Extremities: No clubbing or cyanosis. Intact pulses. Skin: No rash noted. Neurologic: Alert, awake, oriented x3 without acute focal deficits appreciated. Lymph Nodes: No cervical or axillary lymphadenopathy. Investigations: His creatinine is 2.83, sodium is 129, potassium is 5.5. White blood cell count 12. 9, hemoglobin 9.5. Assessment And Recommendations: Chronic atrial fibrillation. Rate is slightly elevated. He has a h igh dose of diltiazem already. At this point, likely his heart rate is responding to the active sick ness of the chronic obstructive pulmonary disease exacerbation and the lung issue. I would monitor a nd do no further adjustment of his rate-controlling medicines unless his heart rate goes higher. At such scenario, then I will recommend a one time digoxin dose 0.125 intravenously and to be dosed eneida odically as needed every 48 hours and carefully monitor for toxicity due to the chronic kidney diseas e. The patient unfortunately cannot take beta hannah due to significant lung disease that he has. Again at this point, heart rate is acceptable and I do not see a compelling reason to adjust his medi cations and I believe his heart rate will come down once his lung issue is more stable. Thank you for the consult. /RYAN Voice ID: [id number] Report ID: [id number]
[2021-03-24 22:29] VITALS: TEMP 96.9
[2021-03-24 22:46] VITALS: O2SAT 87
--- NOTE | 2021-03-24 22:47 | PN ---
Date of Progress Note: 03/24/2021 Chief Complaint: Acute on chronic kidney injury, nonoliguric, associated with cardiorenal syndrome. History Of Present Illness: The patient is complaining of progressively worse dyspnea. He has been treated for COPD exacerbation. Renal function remains at baseline range, although the patient is sym ptomatic and has shortness of breath. He remains on O2 nasal cannula. He is on diuretic. He has be en treated with Lasix. Review of Systems: Denies chest pain or syncope. He is complaining of dyspnea at rest. Physical Examination: Lungs: Crackles bilaterally present. Heart: S1, S2. Abdomen: Soft, benign. Extremities: Swelling in both legs. Laboratory Data: Hemoglobin 9.5, WBC 12.9, platelet count is 162,000. Chemistry showed today sodium 129, potassium 5.5, chloride 93, CO2 24, BUN 97, creatinine 2.83, glucose 88, calcium 10.3, phosphor us 3.3. Impression And Plan: 1.Acute on chronic kidney injury, high BUN and creatinine ratio, cardiorenal syndrome associated wit h hyponatremia and hyperkalemia. The patient is on treatment for COPD exacerbation and he is on IV s teroids. Plan is to increase diuretics for volume control. The patient is symptomatic. He has inte rstitial changes correlating with pulmonary edema. 2.Hyperkalemia. Spironolactone dose was decreased. The patient received Kayexalate for potassium c ontrol. 3.Hyponatremia in setting of cardiorenal syndrome, congestive heart failure. Continue p.o. fluid re striction, low-sodium diet, advanced diuretic with Lasix treatment every 8 hours. The patient may be a candidate for Lasix drip. EB/MODL Voice ID: [id number] Report ID: [id number]
[2021-03-24] MEDS ORDERED: ETOMIDATE 20 MG/10 ML VIAL IV ONE (23:27)
[2021-03-24] MEDS ORDERED: EPINEPHrine 1 MG/10 ML SYR IV ONE (23:27)
[2021-03-25] MEDS ORDERED: FUROSEMIDE 40 MG/4 ML VIAL IV SCH (01:00)
--- NOTE | 2021-03-25 03:14 | P.DS ---
Discharge Date: 03/24/21 Primary Care Provider: Claudette Disposition: Discharge Condition: Reason for Admission: ARF, COPD exacerbation - Problems (1) SHARITA (acute kidney injury) Status: Acute (2) Acute on chronic anemia Status: Acute (3) Acute worsening of stage 3 chronic kidney disease Status: Acute (4) COPD exacerbation Onset Date: 04/27/18 Status: Acute (5) Congestive heart failure, acute Status: Acute (6) Atrial fibrillation Status: Chronic Qualifiers: Atrial fibrillation type: unspecified Qualified Code(s): I48.91 - Unspecified atrial fibrillation (7) Chronic renal disease Status: Chronic Qualifiers: Chronic kidney disease stage: stage 3 (moderate) Brief History of Present Illness: Mr. Narvaez is a 65 yo M with COPD on 2L Home O2, afib, CHF, CAD, h/o lung cancer s/p lobectomy here today with cough, SOB, and VASQUEZ for the past fw days. He reports some relief of symptoms with breathing treatment. Reports edema, wheezing, fatigue, weakness. Denies night sweats, chills, nausea, vomiting and diarrhea. WBC 18.7. Na 129. K 6.5. BUN 90. Cr 3.31. GFR 19. Glu 137. Mg 3.2. CXR shows Interstitial pattern appears prominent within the right lung. This all may be chronic or indicate an acute process such as atypical pneumonia or pneumonitis Hospital Course: On the evening of March 24, pts clinical condition deteriorated. Patient had a cardiac arrest. Code mendel was called. I happened to be in the hospital, and I came down to assist our physician's assistant golf coach,Nathen Smith. Patient was unresponsive without a pulse. On telemetry patient with asystole. We resuscitated patient using ACLS protocol. Unfortunately, we were unable to get a pulse. Mr. Narvaez was pronounced at 9:45 p.m.. Patient's was at bedside. I spoke to patient's PCP regarding patient's code. Home Medications: RX: Cholecalciferol (Vitamin D3) [Vitamin D3] 2,000 unit PO DAILY 07/07/20 RX: Cyclobenzaprine [Flexeril*] 5 mg PO BEDTIME PRN 07/07/20 RX: Folic Acid 3 mg PO DAILY 07/07/20 RX: Gabapentin [Neurontin*] 300 mg PO BIDP PRN 07/07/20 RX: allopurinoL [Zyloprim*] 100 mg PO BEDTIME 07/07/20 RX: Simvastatin 20 mg PO BEDTIME 07/25/20 RX: Calcium Carbonate [Tums Regular*] 1,000 mg PO DAILY #30 tab 07/28/20 RX: L.acidoph,Paracasei, B.lactis [Probiotic] 1 each PO DAILY 08/03/20 RX: dexAMETHasone [Dexamethasone] 2 mg PO BID 10/22/20 RX: Levothyroxine [Synthroid*] 0.1 mg PO [id number] #30 tab 11/06/20 RX: Ipratropium Neb [Atrovent*] 0.5 mg NEB BID 12/28/20 RX: Acetaminophen [Tylenol Extra Strength] 2 tab PO BIDP PRN 02/02/21 RX: Fluticasone/Umeclidin/Vilanter [Trelegy Ellipta 100-62.5-25] 1 puff IH DAILY 02/02/21 RX: LORazepam [Ativan*] 1 mg PO Q12HP PRN 02/02/21 RX: Pantoprazole [Protonix Tab*] 40 mg PO BID 30 Days #60 tab 02/07/21 RX: Furosemide [Lasix] 40 mg PO BIDL 02/14/21 RX: Spironolactone [Aldactone*] 25 mg PO BID tab 02/18/21 Aspirin [Aspirin EC 81 MG] 81 mg PO 03/21/21 RX: Diltiazem Cd [Cardizem Cd*] 360 mg PO DAILY 03/21/21 RX: dexAMETHasone [Dexamethasone] 2 mg PO 03/21/21 Sertraline [Zoloft] 25 mg PO DAILY 03/21/21 Physician Discharge Instructions: Patient Time spent managing pt's care (in minutes): 35
[2021-03-25] MEDS ORDERED: HYDRALAZINE HCL 25 MG TABLET PO SCH (09:00)
[2021-03-25] MEDS ORDERED: SPIRONOLACTONE 25 MG TABLET PO SCH (09:00)
--- NOTE | 2021-03-26 02:45 | P.PN ---
Date of Service: 03/24/21 Leticia oglesby was called. I responded can patient was placed on telemetry. Patient was asystole. Patient was given 1 amp of epi. CPR was continued. Patient was given chest compressions. Patient was intubated by emergency room physician. We completed 2 more rounds of epi as patient remained asystole. Patient never regained a rhythm or a pulse. Patient was pronounced at 9:45 p.m..
== END 2021-03-24 23:28 | disposition expired | DRG 682 ==
LOC: ER 18:28 → ERHOLD 23:33 → 2ND 03-23 22:19
PROVIDERS: ADMIT Family Medicine; ATTEND Family Medicine
PROC: 5A09457 Assistance with Respiratory Ventilation, 24-96 Consecutive Hours, Continuous Positive Airway Pressure (ICD-10-PCS; principal; 2021-03-20)
PROC: 5A12012 Performance of Cardiac Output, Single, Manual (ICD-10-PCS; 2021-03-24)
DX: N17.9 Acute kidney failure, unspecified (principal); I50.23 Acute on chronic systolic (congestive) heart failure; J44.1 Chronic obstructive pulmonary disease with (acute) exacerbation; I13.0 Hypertensive heart and chronic kidney disease with heart failure and stage 1 through stage 4 chronic kidney disease, or unspecified chronic kidney disease; E87.1 Hypo-osmolality and hyponatremia; I48.20 Chronic atrial fibrillation, unspecified; N18.30 Chronic kidney disease, stage 3 unspecified; M10.9 Gout, unspecified; I25.10 Atherosclerotic heart disease of native coronary artery without angina pectoris; I48.91 Unspecified atrial fibrillation; D64.9 Anemia, unspecified; I46.9 Cardiac arrest, cause unspecified; E03.9 Hypothyroidism, unspecified; F17.200 Nicotine dependence, unspecified, uncomplicated; E87.5 Hyperkalemia; T50.0X5A Adverse effect of mineralocorticoids and their antagonists, initial encounter; R77.8 Other specified abnormalities of plasma proteins; Z85.118 Personal history of other malignant neoplasm of bronchus and lung; Z99.81 Dependence on supplemental oxygen; Z79.890 Hormone replacement therapy; Z88.8 Allergy status to other drugs, medicaments and biological substances; Z79.82 Long term (current) use of aspirin; Z79.899 Other long term (current) drug therapy; Z90.49 Acquired absence of other specified parts of digestive tract; Z20.822 Contact with and (suspected) exposure to COVID-19
CPT/HCPCS: 0240U; 36415; 51702; 71045; 80048; 80053; 80076; 81003; 81015; 82140; 82805; 82947; 83605; 83690; 83735; 83880; 84100; 84484; 85025; 85379; 85610; 86850; 86900; 86901; 87040; 87086; 87088; 93005; 94660; 94760; 97110; 97161; 99285; C9113; J0171; J0360; J0610; J1100; J1644; J1650; J1720; J1940; J2543; J2920; J7030; J7040; J7605; J8540